=== PATIENT | male | born 1950 | race Caucasian/White ===

== ENCOUNTER 2025-03-02 20:11 | Emergency (ER) | payer BC, MEDICARE, SELFPAY ==
--- OUTSIDE RECORDS SUMMARY | 2006-09-29 06:33 | XMS_ITS | Continuity of Care Document ---
Author Organization [facility] Address [address] [address] [place] [address] Phone Care Team Providers Care Retail Wireless Associate Name Role Phone Shaun FONSECA, Jaylen Unavailable [...] Date Provider Providers Copied on Encounter Eye [facility], [address] [address], [place], [place], [id number], tel:[phone] [facility] Patient dislikes glasses (chief complaint) No Information Shaun York. [address] [facility] [address], [place], [id number], [place]. tel:[phone] Family History Family Member Type Diagnosis Age At Onset Problem (finding) Family history of HBP Payers Payer name Insurance type Covered constitution party ID Authoriza tion(s) No Information Social History [...]
--- NOTE | ~2025-03-02 | CT_ITS ---
CLINICAL HISTORY: high risk wells criteria CT angiography chest with contrast. 3D Postprocessing. Comparison: CR - XR CHEST 1V - 03/02/25 20:36 EDT Findings: Mild cardiomegaly. Normal RV/LV ratio. Coronary atherosclerosis. No pericardial effusion. Aortic atherosclerosis with ascending aortic aneurysm measuring 4.0 x 4.2 cm. No pulmonary embolus. Small hiatal hernia. Multiple small mediastinal lymph nodes, favored to be reactive. Visualized thyroid gland is within normal limits. Small bilateral pleural effusions. Pulmonary edema. Small right upper lobe consolidation. Diffuse peribronchial thickening. No pneumothorax. Cholelithiasis. No acute findings in the visualized upper abdomen. No acute fractures. IMPRESSION: 1. No pulmonary embolus. 2. Small right upper lobe consolidation 3. Pulmonary edema with small bilateral pleural effusions This document has been electronically signed by: Chris Hernandez MD on 03/03/2025 00:45:02
--- NOTE | ~2025-03-02 | XR_ITS ---
CLINICAL HISTORY: chest tightness, difficulty breating --- Additional Notes or Special Instructions: EKG + blood work (2020)-[place] 1 view chest x-ray Comparison: None provided Findings: Patchy bilateral airspace opacities concerning for pneumonia. No large effusion or pneumothorax. Heart size is normal. No acute fracture. IMPRESSION: Patchy bilateral airspace opacities concerning for pneumonia. This document has been electronically signed by: Chris Hernandez MD on 03/02/2025 21:22:43
--- NOTE | 2025-03-02 20:12 | ECG_ITS ---
Test Reason : tight chestness Blood Pressure : */* mmHG Vent. Rate : 86 BPM Atrial Rate : * BPM P-R Int : * ms QRS Dur : 154 ms QT Int : 428 ms P-R-T Axes : * 76 -9 degrees QTcB Int : 512 ms Atrial fibrillation with a competing junctional pacemaker Right bundle branch block Inferior infarct , age undetermined Abnormal ECG No previous ECGs available Referred By: Generic ED Physician Electronically Signed By: Jignesh Mcdaniel
--- NOTE | 2025-03-02 20:18 | ED_ITS ---
HPI - General Adult General Chief complaint: Chest Pain Stated complaint: tight chest/hard to breathe Time Seen by Provider: 03/02/25 22:43 Source: patient and family (son) Mode of arrival: EMS Limitations: no limitations History of Present Illness ED Provider: Dr. Shira Conroy HPI narrative: 74 year old male with history of CHF, paroxysmal atrial fibrillation not on anticoagulation, HTN, HLD presenting with his son via EMS with orthopnea, chest tightness, genearlized malaise and fatigue ongoing for about about 24 hours. Patient admits he has been having a hard time lying flat, feeling like he is going to choke and has to sit up in bed. Denies assocaited fever or cough. No sputum production. Denies lower extremity edema. Had been feeling well prior to this. Has been visiting from [place]. All of his care is in either [place] or [place]. 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 Has not been in afib for about a year. Was previously cardioverted multiple times for this. Admits his fatigue has really been going on all weekend. Can't tell when he is in afib. Related Data Previous Rx's ?Medication ?Instructions ?Recorded apixaban 5 mg (74 tabs) tablets in 5 mg PO BID #74 ea 03/03/25 a dose pack (Eliquis DVT-PE Treat 30D Start) furosemide 20 mg tablet (Lasix) 20 mg PO DAILY #7 tabs 03/03/25 Allergies Allergy/AdvReac Type Severity Reaction Status Date / Time erythromycin base AdvReac Unknown Verified 03/02/25 20:28 lisinopril AdvReac Unknown Verified 03/02/25 20:28 Penicillins AdvReac Unknown Verified 03/02/25 20:28 Review of Systems 2 Review of Systems: Yes all other systems are reviewed and are negative (as per HPI) [facility] Past Medical History Attestation statement: The following information was validated with the patient. [facility] Narrative: CHF, afib Source: old records reviewed and obtained from family Social History Social History Smoked in Last 30 Days: No Use of substances other than those prescribed or required for medical reasons: No Advance Directives: No Advance Directives Information Provided: No Physical Exam ED Vital Signs: Vital Signs - 24 hr 03/02/25 20:25 03/02/25 20:44 03/02/25 22:54 Temperature 97.9 F 97.9 F 98.2 F Pulse Rate 77 77 98 Respiratory Rate 16 16 22 H Blood Pressure 142/89 H 142/89 H 143/111 H Pulse Oximetry 97 97 92 Oxygen Delivery Method Room Air Room Air Room Air 03/03/25 00:04 03/03/25 02:04 Temperature 97.6 F Pulse Rate 78 77 Respiratory Rate 20 Blood Pressure 154/104 H 143/95 H Pulse Oximetry 93 Oxygen Delivery Method Room Air BMI result Body Mass Index 27.0 GENERAL: Chronically ill-appearing, mild respiratory distress. SKIN: Normal skin color for ethnicity, warm, dry, no rashes noted. HEENT:? Normocephalic, atraumatic, no stridor, EOMI. NECK: Soft, supple, full ROM, midline structures nontender, no step-offs, no deformities, no lymphadenopathy. CHEST: Irregularly irregular tachycardia, symmetric chest rise and fall, strong peripheral pulses. PULMONARY: Coarse lung sounds bilaterally, diminished at the bases, mild respiratory distress with poor air movement, no wheezes. ABDOMINAL: Soft, protuberant nontender, quiet bowel sounds in all quadrants. : Deferred. MUSCULOSKELETAL: Normal tone, full range of motion, no deformities, no peripheral edema bilaterally. NEURO: Alert and oriented to person, CN II through XII intact, no focal neurologic deficits.? PSYCHIATRIC: Anxious affect, appropriate demeanor. Course Course Course Narrative: This is a rapid medical exam performed by Jack Heck NP: Additional HPI, ROS, PE not included below will be deferred to primary provider. Patient is a 74-year-old male with history of afib, SC x 2 presenting to the ED with complaining of chest tightness/dyspnea since yesterday. Visiting from [place]. On metoprolol, not anticoagulated. Feeling fatigued. Sxs worse today. Plan: EKG, labs, CXR Medications Administered Discontinued Medications Generic Name Dose Route Start Last Admin Trade Name Freq PRN Reason Stop Dose Admin Acetaminophen 975 mg 03/03/25 02:27 03/03/25 03:07 Acetaminophen 325 Mg Tablet PO 03/03/25 02:28 975 mg ONCE ONE Administration Apixaban 5 mg 03/03/25 02:44 03/03/25 03:07 Apixaban 5 Mg Tablet PO 03/03/25 02:45 5 mg ONCE ONE Administration Furosemide 40 mg 03/03/25 02:41 03/03/25 03:06 Furosemide 40 Mg/4 Ml Vial IVPUSH 03/03/25 02:42 40 mg ONCE ONE Administration Protocol Iohexol 65 ml 03/02/25 23:57 03/02/25 23:57 Iohexol 350 Mg/Ml 100 Ml Infus..Btl IV 03/02/25 23:58 65 ml ONCE ONE Administration Nitroglycerin 0.4 mg 03/02/25 23:14 03/03/25 00:04 Nitroglycerin 0.4 Mg Tab.Subl SUBLINGUAL 0.4 mg Q5MX3 PRN Administration chest tightnes Medical Decision Making Medical Decision Making [facility] Narrative: Patient presents today with chief complaint of shortness of breath, fatigue. Differential diagnosis includes, but is not limited to, upper respiratory infection, pneumonia, COPD exacerbation, asthma exacerbation, CHF, pneumothorax, pleural effusion, pulmonary embolism, ACS.? Broad-based work-up will be initiated to evaluate for etiology of patient's symptoms. Patient's clinical picture is most consistent with afib and CHF exacerbation. Chest XR showed some patchy airspace disease read by radiologist, however, I feel he has no evidence of pneumonia clinically. He is afebrile, without sputum produciton WBC only 11 without leftward shift and is improving after diuresis. He is not on DOAC and I will start him back on Eliquis. He had taken it previously for the afib and since we do not know when his afib began, cardioversion would be unsafe at this point. Extensive discussion with patient and son regarding admission versus discharge. Son feels comfortable with d/c at this time. Differential Diagnosis Differential Diagnoses: The differential diagnosis associated with the presentation includes (as above) Admission/Observation Consideration of admission/observation: Escalation of care including admission/observation considered Lab Data [facility] Lab Attestation statement: I reviewed the patient's lab results. 03/02/25 20:22 03/02/25 20:22 Labs: Lab Results 03/02/25 03/02/25 03/03/25 Range/Units 20:22 22:25 02:01 WBC 11.3 H (4.8-10.8) X10*3/uL RBC 4.79 (4.60-5.80) X10*6/uL Hgb 14.4 (14.0-18.0) g/dl Hct 42.7 (42.0-52.0) % MCV 89.1 (80.0-98.0) fL MCH 30.1 (27.0-33.0) pg MCHC 33.7 (31.0-36.0) g/dl RDW 13.9 (11.0-16.0) % Plt Count 300 (160-400) X10*3/uL MPV 11.5 (9.4-12.4) fL Immature Gran % (Auto) 0.3 (0.0-0.4) % Neut % (Auto) 67.7 (45-73) % Lymph % (Auto) 22.9 (20-40) % [place] % (Auto) 7.9 (2-11) % Eos % (Auto) 0.6 (0-4) % Baso % (Auto) 0.6 (0-2) % Lymph # (Auto) 2.6 (1.2-4.9) X10*3/uL [place] # (Auto) 0.9 (0.1-1.2) X10*3/uL Eos # (Auto) 0.1 (0.0-0.4) X10*3/uL Baso # (Auto) 0.1 (0.0-0.2) X10*3/uL Abs Immat Gran (auto) 0.03 (0.00-0.03) X10*3/uL Absolute Neuts (auto) 7.7 (2.0-8.3) x10*3/uL Absolute Nucleated RBC 0.000 (0.0-0.012) X10*3/uL Nucleated RBC % (auto) 0.0 (0.0-0.2) /100WBC Sodium 140 (135-145) mmol/L Potassium 4.5 (3.3-5.1) mmol/L Chloride 101 (96-108) mmol/L Carbon Dioxide 29 (22-29) mmol/L Anion Gap 15 (12-20) BUN 18 H (9-16) mg/dL Creatinine 1.21 (0.5-1.4) mg/dL Estim Creat Clear Calc 59.6 Estimated GFR 58 POC Glucose 65 (60-115) mg/dL Random Glucose 85 (60-115) mg/dL Calcium 9.4 (8.4-10.2) mg/dL Total Bilirubin 1.0 (0.0-1.0) mg/dL AST 20 (5-37) U/L ALT 14 (0-40) U/L Alkaline Phosphatase 68 (39-117) U/L Troponin I High Sens 5.4 7.1 (<3.5-35.0) ng/L B-Natriuretic Peptide 1007 H (<100) pg/mL Total Protein 6.4 L (6.5-8.0) g/dL Albumin 4.1 (3.5-5.0) g/dL Influenza Type A (PCR) NEGATIVE (Negative) Influenza Type B (PCR) NEGATIVE (Negative) RSV RNA Qual (PCR) NEGATIVE (Negative) SARS-CoV-2 RNA (RT-PCR) NEGATIVE (Negative) Independent Interpretation I performed an independent interpretation of an: EKG and Plain X-Ray Radiology Impression Discussion of test interpretation with radiology: I have reviewed the radiologist's reading. Radiologist Impression: 1 view chest x-ray Comparison: None provided Findings: Patchy bilateral airspace opacities concerning for pneumonia. No large effusion or pneumothorax. Heart size is normal. No acute fracture. IMPRESSION: Patchy bilateral airspace opacities concerning for pneumonia. This document has been electronically signed by: Chris Hernandez MD on 03/02/2025 21:22:43 Independent Historian Clinical information obtained from an independent historian. History obtained from or confirmed by: Other (son) Chronic Conditions Patient?s care impacted by: Hypertension and Other (afib) Discharge Plan Discharge Clinical Impression: Acute exacerbation of CHF (congestive heart failure), Atrial fibrillation with controlled ventricular response, Acute dyspnea Patient Disposition: Home, Self-Care Instructions: Heart Failure (ED), A-fib (Atrial Fibrillation) (ED) Additional Instructions: Use Lasix daily for fluid retention and difficulty breathing while lying flat. Return to the emergency department immediately with any new or worsening symptoms including: Worsening chest pain, worsening difficulty breathing despite medications, fevers greater than 100?, green or brown sputum production, any new symptom that concerns you. Call 911 with any medical emergency. You will be restarted on Eliquis. You should take this medication every day until your follow-up visit with Cardiology at home. Prescriptions: New furosemide [Lasix] 20 mg tablet 20 mg PO DAILY Qty: 7 0RF Eliquis DVT-PE Treat 30D Start 5 mg (74 tabs) tablets,dose pack 5 mg PO BID Qty: 74 0RF Interventions: ED Discharge Assessment Last Done: 03/03/25 03:15 Discharge Date/Time: 03/03/25 03:18 Print Language: Palestinian
[2025-03-02 20:25] VITALS: BP 142/89; PULSE 77; RESP 16; TEMP 36.6; O2SAT 97; BMI 27.0
[2025-03-02 20:27] LABS: MANUAL DIFF FLAG NO
[2025-03-02 20:29] LABS: Hematocrit 42.7 % (42.0-52.0); Hemoglobin 14.4 g/dl (14.0-18.0); Imm Gran Abs Auto 0.03 X10*3/uL (0.00-0.03); Imm Gran Pct Auto 0.3 % (0.0-0.4); Lymphocytes Absolute Auto 2.6 X10*3/uL (1.2-4.9); Mean Corpuscular HGB Conc 33.7 g/dl (31.0-36.0); Mean Corpuscular Hemoglobin 30.1 pg (27.0-33.0); Mean Corpuscular Volume 89.1 fL (80.0-98.0); NRBC Abs Auto 0.000 X10*3/uL (0.0-0.012); NRBC Pct Auto 0.0 /100WBC (0.0-0.2); Platelet Count 300 X10*3/uL (160-400); Red Blood Count 4.79 X10*6/uL (4.60-5.80); White Blood Count 11.3 X10*3/uL (4.8-10.8)
[2025-03-02 20:42] LABS: Alanine Aminotransferase 14 U/L (0-40); Albumin Level 4.1 g/dL (3.5-5.0); Alkaline Phosphatase 68 U/L (39-117); Anion Gap 15 (12-20); Aspartate Amino Transferase 20 U/L (5-37); Blood Urea Nitrogen 18 mg/dL (9-16); Calcium 9.4 mg/dL (8.4-10.2); Carbon Dioxide 29 mmol/L (22-29); Chloride 101 mmol/L (96-108); Creatinine Clr Calc Pharmacy 59.6; Estimated Glomerular Filt Rate 58; Potassium 4.5 mmol/L (3.3-5.1); Sodium 140 mmol/L (135-145); Total Protein 6.4 g/dL (6.5-8.0)
[2025-03-02 20:44] VITALS: BP 142/89; PULSE 77; RESP 16; TEMP 36.6; O2SAT 97
--- NOTE | 2025-03-02 20:44 | PC.NURSE ---
pt here with chest tightness, states SOB has resolved. Pt denies blood thinners. respirations even and unlabored.
[2025-03-02 20:49] LABS: Troponin-I High Sensitivity 5.4 ng/L (<3.5-35.0)
[2025-03-02 21:05] LABS: Resp Syncy Virus RNA Qual PCR NEGATIVE (Negative); SARS COV2 PCR INHOUSE NEGATIVE (Negative)
--- OUTSIDE RECORDS SUMMARY | 2025-03-02 21:49 | XMS_ITS | Continuity of Care Document ---
Author Organization Formerly [facility]. If a dditional information is needed, contact Health Information Management at [phone] Address [phone] [place] [address] Phone Care Team Providers Care Dobby Looms Pegger Name Role Phone Unavailable Unavailable Unavailable Unavailable Unavailable Unavailable Unavailable Unavailable Unavailable Unavailable Unavailable Unavailable Unavailable Unavailable Unavailable Unavailable Unavailable Unavailable Unavailable Unavailable Unavailable Unavailable Unavailable Unavailable Unavailable Unavailable Unavailable Problems Abnormal EKG Onset:20-Dec-2019 Comments:Onset Date: [id number] Myocardial infarction Onset:07-Nov-2019 Fabián Dickinson MD Comments:Onset Date: [id number] History of coronary artery d isease Onset:06-Nov-2019 Comments:Onset Date: 20191106 NSTEMI (non-ST elevated myoc ardial infarction) Onset:06-Nov-2019 Comments:Onset Date: 20191106 Chest pain Onset:06-Nov-2019 Near syncope Onset:17-Aug-2018 [facility] Dizziness present Onset:17-Aug-2018 [facility] Comments:Onset Date: [id number] Leukocytosis Onset:17-Aug-2018 [facility] Type 2 diabetes mellitus wit hout complications Onset:07-Aug-2018 Comments:Onset Date: 20180730 Essential (primary) hyperten courtney Onset:07-Aug-2018 Comments:Onset Date: 20180730 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 Onset:31-Jul-2018 Comments:Onset Date: 20180730 Myocardial infarct Onset:31-Jul-2018 Comments:Onset Date: 20180730 CAD (coronary artery disease ), tang[place] coronary artery Onset:30-Jul-2018 Comments:Onset Date: 20180730 Acute inferolateral myocardi al infarction Onset:29-Jul-2018 Comments:Onset Date: 20180729 Acute ST segment elevation myocardial infarction Onset:29-Jul-2018 Comments:Onset Date: 20180730 Electrocardiogram abnormal Comments:Abnormal EKG Mitral valve regurgitation Comments:Moderate mitral regurgitation Coronary arteriosclerosis in [place] artery Comments:CAD in [place] arter y Acute ST segment elevation myocardial infarction Comments:ST elevation (STEMI ) myocardial infarction involving left circumflex coronary artery Essential hypertension Comments:Essential hypertension Mixed hyperlipidemia Comments:Mixed hyperlipidemi a Type 2 diabetes mellitus wit hout complication Comments:Type 2 diabetes mellitus without complication, unspecified whether intermediate frame tender insulin use Mental Status Cognitive function finding 06-Nov-2019 Cognitive function finding 29-Jul-2018 Allergies and Adverse Reactions Erythromycin Base(Allergy) Onset: 17-Aug-2018 Reaction:UNKNOWN penicillin G(Allergy) Onset: 17-Aug-2018 Reaction:UNKNOWN Erythromycin(Allergy) Penicillin V Potassium 500 M G Oral Tablet(Allergy) Medications Norvasc (as amLODIPine besyl ate) 10 MG Oral Tablet;10 MG Orally Once a day, 1 tablet Quantity:90 Refills:1 MARLEY JONES Start:26-Nov-2020 Status:Inactive Comments:10 MG Orally Once a day, 1 tablet regadenoson;Provider Administration Instructions:INFUSE RAPIDLY OVER 10 SECONDS Quantity:1 Barbara Bartlett MD Start:17-Dec-2019 Status:Discontinued Comments:Provider Administration Instructions:INFUSE RAPIDLY OVER 10 SECONDS Nitrostat;0.4 MG Sublingual Every 5 minutes x 3 if needed for chest pain, as directed Quantity:25 Refills:2 MARLEY JONES Start:06-Nov-2019 Comments:0.4 MG Sublingual Every 5 minutes x 3 if needed for chest pain, as directed Metoprolol Tartrate 25 MG Or al Tablet;25 MG Orally Twice a day, 1/2 tablet with food Quantity:180 Refills:3 MARLEY JONES Start:10-Sep-2018 Status:Inactive Comments:25 MG Orally Twice a day, 1/2 tablet with food 24 HR venlafaxine 75 MG Exte nded Release Oral Capsule [Effexor];75 MILLIGRAM PO DAILY Start:17-Aug-2018 Comments:75 MG PO DAILY metoprolol tartrate 25 MG Or al Tablet;25 MILLIGRAM PO BID Start:17-Aug-2018 Comments:25 MG PO BID atorvastatin 40 MG Oral Tablet;40 MILLIGRAM PO BEDTIME Start:17-Aug-2018 Comments:40 MG PO BEDTIME aspirin 81 MG Chewable Table t [Billy Aspirin];81 MILLIGRAM PO DAILY Start:31-Jul-2018 Comments:81 MG PO DAILY ticagrelor 90 MG Oral Tablet ;90 MILLIGRAM PO BID Start:31-Jul-2018 Comments:90 MG PO BID atorvastatin 40 MG Oral Tablet;40 MILLIGRAM PO DAILY 1700 Start:31-Jul-2018 Status:Discontinued Comments:40 MG PO DAILY 1700 fenofibrate 160 MG Oral Tablet;160 MILLIGRAM PO DAILY Start:29-Jul-2018 Comments:160 MG PO DAILY amLODIPine 5 MG Oral Tablet; 5 MILLIGRAM PO DAILY Start:29-Jul-2018 Status:Discontinued Comments:5 MG PO DAILY aspirin 325 MG Delayed Relea se Oral Tablet;325 MILLIGRAM PO DAILY Start:29-Jul-2018 Status:Discontinued Comments:325 MG PO DAILY SITagliptin 100 MG Oral Tablet;100 MILLIGRAM PO DAILY Start:29-Jul-2018 Comments:100 MG PO DAILY buPROPion hydrochloride 100 MG Oral Tablet [Wellbutrin];100 MILLIGRAM PO BID Start:29-Jul-2018 Comments:100 MG PO BID hydroCHLOROthiazide 12.5 MG / valsartan 320 MG Oral Tablet;1 TABLET PO DAILY Start:29-Jul-2018 Comments:1 TAB PO DAILY 24 HR venlafaxine 75 MG Exte nded Release Oral Capsule [Effexor];75 MG ORAL DAILY Quantity:1 Keturah Rowan DO Status:Discontinued Comments:[id number] Administration Instructions:...... ADMIN WITH FOODOrdered by FARIDA MCNEIL on 11/06/19 at 2100Venlafaxine XR Cap (Effexor XR Cap) 75 MG PO DAILY(ordered on 11/06/19 at 2100) fenofibrate 160 MG Oral Tablet;160 MG ORAL DAILY Quantity:1 Keturah Rowan DO Status:Discontinued Comments:[id number] valsartan 320 MG Oral Tablet [Diovan];320 MG ORAL DAILY Quantity:1 Keturah Orozco P DO Status:Discontinued Comments:[id number] Administration Instructions:GIVE WITH HCTZ 12.5MG= DIOVAN HCT 320/12.5MG..... DO NOT ADMIN WITH FOOD aspirin 81 MG Delayed Releas e Oral Tablet [Billy Aspirin];81 MG ORAL DAILY Quantity:1 Frances Mathur MD Status:Discontinued Comments:[id number] Administration Instructions:Aspirin EC Tab (Halfprin EC Tab) 81 MG PO Now and thenDAILY (ordered on 11/07/19 at 1030) SITagliptin 100 MG Oral Tabl et [Januvia];100 MG ORAL DAILY Quantity:1 Keturah Orozco P DO Status:Discontinued Comments:[id number] Administration Instructions:Ordered by FARIDA MCNEIL on 11/06/19 at 2100sitaGLIPtin Tab (NF) (Januvia Tab) 100 MG PO DAILY(ordered on 11/06/19 at 2100) metoprolol tartrate 25 MG Or al Tablet;25 MG ORAL BID Quantity:1 Keturah Orozco P DO Status:Discontinued Comments:[id number] Administration Instructions:BETA BLOCKEROrdered by FARIDA MCNEIL on 11/06/19 at 2100Metoprolol Tartrate Tab (Lopressor Tab) 25 MG PO BID(ordered on 11/06/19 at 2100) buPROPion hydrochloride 100 MG Oral Tablet;100 MG ORAL BID Quantity:1 Keturah Orozco P DO Status:Discontinued Comments:[id number] Administration Instructions:Ordered by FARIDA MCNEIL on 11/06/19 at 2100buPROPion Tab (Wellbutrin Tab) 100 MG PO BID (ordered on11/06/19 at 2100) acetaminophen 325 MG Oral Ta blet [Tylenol];650 MG ORAL Q6H PRN Quantity:2 Fabián Dickinson MD Status:Discontinued Comments:[id number] Administration Instructions:ED Bridge orders stop after 8 hrs... Obtain new orders.Maximum daily dose of Acetaminophen should not exceed 4grams.ED Bridge Admission Order Set atorvastatin 80 MG Oral Tabl et [Lipitor];80 MG ORAL BEDTIME Quantity:1 Keturah Orozco P DO Status:Discontinued Comments:[id number] Administration Instructions:Ordered by FARIDA MCNEIL on 11/06/19 at 1935Start todayAtorvastatin Tab (Lipitor Tab) 80 MG PO and then daily(ordered on 11/06/19 at 1935) acetaminophen 325 MG Oral Ta blet [Tylenol];650 MG ORAL Q4H PRN Quantity:2 Keturah Orozco P DO Status:Discontinued Comments:[id number] Administration Instructions:Maximum daily dose of Acetaminophen should not exceed 4grams.Ordered by FARIDA MCNEIL on 11/06/19 at 1935Start todayAcetaminophen Tab (Tylenol Tab) 650 MG PO Q4H PRN mildpain score 1-3 (For mild pain (score 1 - 3) 2/dose forpain, mild pain --...) (ordered on 11/06/19 at 1935)Rx [id number] DC'd while checking ints/dups/alls on this Rx. glucose 0.4 MG/MG Oral Gel;1 5 GM ORAL .[HYPOGLYCEMIA] PRN Quantity:1 Frances Mathur MD Status:Discontinued Comments:Provider Administration Instructions:Dextrose 40% 15gm Gel (Glutose 15gm Gel) 15 GM PO.[hypoglycemia] PRN hypoglycemia as per guidelines (Giveif dex-4 is not available... See notes below: For pa...)(ordered on 11/07/19 at 0659) heparin sodium, porcine 5000 UNT/ML Injectable Solution;33579 UNITS INTRAVENOUS ASDIR Quantity:4 Keturah Rowan DO Status:Discontinued Comments:[id number] Administration Instructions:THE NURSING UNIT SHOULD DECREASE BOLUS BY 1/2 WHILE PATIENTIS ON EPTIFIBATIDE (INTEGRILIN)Ordered by FARIDA MCNEIL on 11/06/19 at 1935Heparin Inj (Heparin Inj) 82876 UNITS IV STAT and thenasdir (12 unit/kilogram per hour continuous intravenousinfusion...), Dextrose 5%/Water (D5W) (ordered on 11/06/19at 1935) heparin sodium, porcine 5000 UNT/ML Injectable Solution;[id number] Administration Instructions:UNFRACTIONATED HEPARIN LEVEL< THAN 0.11= 6500 UNITS0.11 - 0.24= 3000 UNITSIf patient currently on or within last 24 hrs has receivedthrombolytic (Activase or Alteplate) or MtKTt5k inhibitor(Integrilin), Do not exceed maximum bolus dose of4,000 units (0.8 ml).* HEPARIN BOLUS CHART* -- INITIAL BOLUS DOSE ---Acute Coronary Syndromes (Acute [place] onthrombolytics, Unstable Angina, High Risk Bleeding)Bolus Dose = 60 units per kg - Do not bolus out of IV bag. Quantity:0 Keturah Rowan DO Status:Discontinued Comments:[id number] Administration Instructions:UNFRACTIONATED HEPARIN LEVEL< THAN 0.11= 6500 UNITS0.11 - 0.24= 3000 UNITSIf patient currently on or within last 24 hrs has receivedthrombolytic (Activase or Alteplate) or QxQUh5f inhibitor(Integrilin), Do not exceed maximum bolus dose of4,000 units (0.8 ml).* HEPARIN BOLUS CHART* -- INITIAL BOLUS DOSE ---Acute Coronary Syndromes (Acute IL onthrombolytics, Unstable Angina, High Risk Bleeding)Bolus Dose = 60 units per kg - Do not bolus out of IV bag. sodium chloride 9 MG/ML Injectable Solution;Provider Administration Instructions:NOTE: CONCENTRATION = 40 UNITS/ML ---- HEPARIN INITIAL RATE CHART - (VERIFY RATE ON ORDER)Acute Coronary Syndromes (Acute [place] on thrombolytics,Unstable Angina)Infusion Rate = 12 units/kg/hrConcentration = 20,000 units / 500 ml = 40 units per mlWeight (kgs) --- Rate (ml/hr)50-51 15 ml/hr52-54 16 ml/hr55-58 17 ml/hr59-61 18 ml/hr62-64 19 ml/hr65-68 20 ml/hr69-71 21 ml/hr72-74 22 ml/hr Keturah Rowan DO Status:Discontinued Comments:Provider Administration Instructions:NOTE: CONCENTRATION = 40 UNITS/ML ---- HEPARIN INITIAL RATE CHART - (VERIFY RATE ON ORDER)Acute Coronary Syndromes (Acute IL on thrombolytics,Unstable Angina)Infusion Rate = 12 units/kg/hrConcentration = 20,000 units / 500 ml = 40 units per mlWeight (kgs) --- Rate (ml/hr)50-51 15 ml/hr52-54 16 ml/hr55-58 17 ml/hr59-61 18 ml/hr62-64 19 ml/hr65-68 20 ml/hr69-71 21 ml/hr72-74 22 ml/hr sodium chloride 9 MG/ML Injectable Solution;[id number] Administration Instructions:Sodium Chloride 0.9% Inj (NS Inj) 1000 ML 75 MLS/HR IVASDIR (x 1 liter) (ordered on 11/07/19 at 0700) Frances Mathur MD Status:Discontinued Comments:[id number] Administration Instructions:Sodium Chloride 0.9% Inj (NS Inj) 1000 ML 75 MLS/HR IVASDIR (x 1 liter) (ordered on 11/07/19 at 0700) 1 ML morphine sulfate 2 MG/M L Cartridge;2 MG INTRAVENOUS .Special Inst PRN Quantity:1 Keturah Rowan DO Status:Discontinued Comments:Provider Administration Instructions:FOR CHEST PAIN NOT CONTROLLED BY NTG DRIPOrdered by FARIDA MCNEIL on 11/06/19 at 1935Start todaymorphine Inj (morphine Inj) 2 MG IV PRN chest pain (Forchest pain -- may use if intolerant to DILAUDID. If m...)(ordered on 11/06/19 at 1935) ondansetron 2 MG/ML Injectab le Solution [Zofran];4 MG INTRAVENOUS Q8H PRN Quantity:1 Fabián Dickinson MD Status:Discontinued Comments:[id number] Administration Instructions:ED Bridge orders stop after 8 hrs... Obtain new orders.Give IV if unable to tolerate po tab if both routes ordered.Use for ZofranED Bridge Admission Order Set 250 ML nitroglycerin 0.1 MG/ ML Injection;[id number] Administration Instructions:NOTE CONCENTRATION: 100MCG/MLstart nitro gtt if chest pain unresloved with nitro paste Danis Dickinson MD Status:Discontinued Comments:[id number] Administration Instructions:NOTE CONCENTRATION: 100MCG/MLstart nitro gtt if chest pain unresloved with nitro paste ondansetron 2 MG/ML Injectab le Solution [Zofran];4 MG INTRAVENOUS Q6H PRN Quantity:1 Keturah Rowan DO Status:Discontinued Comments:[id number] Administration Instructions:Ordered by FARIDA MCNEIL on 11/06/19 at 1935Start todayOndansetron Inj (Zofran Inj) 4 MG IV Q6H PRN nausea(Nausea--if PO intolerant Use most appropriate route...) (ordered on 11/06/19 at 1935) glucose 254 MG/ML Oral Solution;15 GM ORAL .[HYPOGLYCEMIA] PRN Quantity:1 Frances Mathur MD Status:Discontinued Comments:Provider Administration Instructions:Glucose Oral Liquid (Dex4 Glucose Oral Liquid) 15 GM PO.[hypoglycemia] PRN hypoglycemia guidelines (For patientsable to swallow and who can take food by leela...) (orderedon 11/07/19 at 0659) 250 ML glucose 100 MG/ML Injection;100 ML INTRAVENOUS .[HYPOGLYCEMIA] Quantity:1 Frances Mathur MD Status:Discontinued Comments:Provider Administration Instructions:P T Approved Formulary substitution for Dextrose 50% 50mlinjection while on backorder.Dextrose 10%/Water (D10W) 100 ML IV .[hypoglycemia] (-Infuse dose intravenously over 5-7 minutes or as direct...)(ordered on 11/07/19 at 0659) 3 ML insulin lispro 100 UNT/ ML Pen Injector [HumaLOG];Provider Administration Instructions:0 UNITSSEE SPECIAL INSTRUCTIONS/ADMIN CRITERIA FOR SLIDING [id number] UNITS/ML - EXP 28 DAYS OUT OF FRIGTHERAPEUTIC SUBSTITUTION FOR NOVOLOG.........ADMIN WITH MEAL PATIENT SPECIFIC VIAL; STORE INPATIENT CASSETTE IN MED ROOM. DO NOT GIVE TO PATIENT ATDISCHARGE. DISCARD IN BLACK BIN.Insulin Lispro Inj (HumaLOG Inj) 0 UNITS subQ .[slidingscale] PRN sliding scale insulin (LOW DOSE SLIDING SCALE Quantity:0 Frances Mathur MD Status:Discontinued Comments:Provider Administration Instructions:0 UNITSSEE SPECIAL INSTRUCTIONS/ADMIN CRITERIA FOR SLIDING [id number] UNITS/ML - EXP 28 DAYS OUT OF FRIGTHERAPEUTIC SUBSTITUTION FOR NOVOLOG.........ADMIN WITH MEAL PATIENT SPECIFIC VIAL; STORE INPATIENT CASSETTE IN MED ROOM. DO NOT GIVE TO PATIENT ATDISCHARGE. DISCARD IN BLACK BIN.Insulin Lispro Inj (HumaLOG Inj) 0 UNITS subQ .[slidingscale] PRN sliding scale insulin (LOW DOSE SLIDING SCALE REFRIGERATED PATIENT MEDS 1 EACH EACH;1 EACH MISC ASDIR Quantity:1 Fabián Dickinson MD Status:Discontinued Comments:[id number] Administration Instructions:THIS IS DUMMY MED THAT ALLOWS ACCESS TO PATIENT REFRIG MEDSDO NOT DELETE THIS DRUG FROM PATIENT PROFILE.. glucagon (rDNA) 1 MG Injecti on;1 MG INTRAMUSCULAR .[HYPOGLYCEMIA] PRN Quantity:1 Frances Mathur MD Status:Discontinued Comments:Provider Administration Instructions:use for GLUCAGONGlucagon Inj (GlucaGen Inj) 1 MG IM .[hypoglycemia] PRNper hypoglycemia guidelines (Use for glucagon For patientswho are non-responsive and ...) (ordered on 11/07/19 [id number]) Pravastatin Sodium 20 MG Ora l Tablet;20 MG Orally Once a day, 1 tablet MARLEY JONES Status:Inactive Comments:20 MG Orally Once a day, 1 tablet Benzonatate;100 MG Orally Th ree times a day, 1 capsule as needed MARLEY JONES Comments:100 MG Orally Three times a day, 1 capsule as needed Cholecalciferol 5000 UNT Ora l Capsule;5000 UNIT Orally Once a day, 1 capsule Quantity:30 MARLEY JONES Comments:5000 UNIT Orally On ce a day, 1 capsule Multi Complete;- Orally , as directed MARLEY JONES Comments:- Orally , as direc briana Aspirin 81 MG Delayed Releas e Oral Tablet;81 MG Orally Once a day, 1 tablet Quantity:30 MARLEY JONES Comments:81 MG Orally Once a day, 1 tablet pantoprazole 40 MG Delayed Release Oral Tablet;40 MG Orally Once a day, 1 tablet Quantity:30 MARLEY JONES Comments:40 MG Orally Once a day, 1 tablet 24 HR mirabegron 50 MG Exten ded Release Oral Tablet [Myrbetriq];50 MG Orally Once a day, 1 tablet Quantity:30 MARLEY JONES Comments:50 MG Orally Once a day, 1 tablet 24 HR metoprolol succinate 2 5 MG Extended Release Oral Tablet;25 MG Orally Once a day, 1 tablet MARLEY JONES Comments:25 MG Orally Once a day, 1 tablet 24 HR metoprolol succinate 2 5 MG Extended Release Oral Tablet [Toprol];25 MG Orally Once a day, 1 tablet Quantity:30 MARLEY JONES Status:Inactive Comments:25 MG Orally Once a day, 1 tablet Venlafaxine HCl ER;75 MG Ora lly tid, 1 tablet with food MARLEY JONES Comments:75 MG Orally tid, 1 tablet with food fenofibric acid 135 MG Delay ed Release Oral Capsule;135 MG Orally Once a day, 1 capsule Quantity:30 MARLEY JONES Comments:135 MG Orally Once a day, 1 capsule Omeprazole;40 MG Orally Once a day, 1 capsule Quantity:30 MARLEY JONES Status:Inactive Comments:40 MG Orally Once a day, 1 capsule 12 HR buPROPion Hydrochlorid e 100 MG Extended Release Oral Tablet [Wellbutrin];100 MG Orally Once a day, 1 tablet in the morning Quantity:30 MARLEY JONES Status:Inactive Comments:100 MG Orally Once a day, 1 tablet in the morning Doxazosin 4 MG Oral Tablet;4 MG Orally Once a day, 1 tablet Quantity:30 MARLEY JONES Comments:4 MG Orally Once a day, 1 tablet Alogliptin Benzoate;25 MG Or ally Once a day, 1 tablet Quantity:30 MARLEY JONES Comments:25 MG Orally Once a day, 1 tablet buPROPion Hydrochloride 100 MG Oral Tablet;100 MG Orally Once a day, 1 tablet MARLEY JONES Comments:100 MG Orally Once a day, 1 tablet metFORMIN hydrochloride 500 MG Oral Tablet;500 MG Orally Once a day, 1 tablet with a meal Quantity:30 MARLEY JONES Comments:500 MG Orally Once a day, 1 tablet with a meal cetirizine hydrochloride 10 MG Oral Tablet;10 MG Orally Once a day, 1 tablet Quantity:30 MARLEY JONES Comments:10 MG Orally Once a day, 1 tablet Losartan Potassium 100 MG Or al Tablet;100 MG Orally Once a day, 1 tablet MARLEY JONES Comments:100 MG Orally Once a day, 1 tablet Atorvastatin Calcium;40 MG Orally Once a day, 1 tablet MALREY JONES Comments:40 MG Orally Once a day, 1 tablet Plavix;75 MG Orally Once a d ay, 1 tablet Quantity:90 Refills:3 MARLEY JONES Comments:75 MG Orally Once a day, 1 tablet Brilinta;90 MG Orally Twice a day, 1 tablet MARLEY JONES Status:Inactive Comments:90 MG Orally Twice a day, 1 tablet Januvia 100 MG (as sitaGLIPt in phosphate monohydrate 128.5 MG) Oral Tablet;100 MG Orally Once a day, 1 tablet Quantity:30 MARLEY JONES Status:Inactive Comments:100 MG Orally Once a day, 1 tablet Spironolactone 25 MG Oral Tablet;25 MG Orally , 1 tablet Quantity:15 MARLEY JONES Status:Inactive Comments:25 MG Orally , 1 tablet Hydrochlorothiazide 12.5 MG / valsartan 320 MG Oral Tablet;320-12.5 MG Orally Once a day, 1 tablet Quantity:30 MARLEY JONES Status:Inactive Comments:320-12.5 MG Orally Once a day, 1 tablet atorvastatin 40 MG Oral Tabl et [Lipitor];40 MG Orally Once a day, 1 tablet Quantity:90 Refills:3 MARLEY JONES Status:Inactive Comments:40 MG Orally Once a day, 1 tablet 120 ACTUAT Fluticasone propionate 0.05 MG/ACTUAT Nasal Inhaler;93 MCG/ACT Nasally Twice a day, 1 spray in each nostril MARLEY JONES Comments:93 MCG/ACT Nasally Twice a day, 1 spray in each nostril Fenofibrate 160 MG Oral Tablet;160 MG Orally Once a day, 1 tablet with food Quantity:30 MARLEY JONES Status:Inactive Comments:160 MG Orally Once a day, 1 tablet with food Ozempic;2 MG/1.5ML Subcutane ous , as directed MARLEY JONES Comments:2 MG/1.5ML Subcutaneous , as directed Alpha Lipoic Acid;, MARLEY JONES Comments:, Social History Smoking Status Never smoked tobacco Recorded: 06-Nov-2019 Never smoked tobacco Recorded: 17-Aug-2018 Never smoked tobacco Recorded: 29-Jul-2018 Encounters pre-admission 27-Dec-2019 09:30 [facility]
--- OUTSIDE RECORDS SUMMARY | 2025-03-02 21:50 | XMS_ITS | Data Portability ---
Author Organization [place] [facility] [place] Address [address] [facility] [address] [place] [address] Care Team Providers Care Tight Rope Walker Name Role Phone [facility] Primary Care Provider ROB NGUYEN Dining Car Hop Assessment Encounter Date Assessment Date Assessment LastModified by Organization Details LastModified Time 06/15/2023 06/15/2023 Patient's echocardiogram notes normal LVEF moderate MR normal RVSP this appears stable and consistent with his echo 1 year ago. Given his known coronary disease along with his progressive dyspnea on exertion and fatigue we will plan on a exercise thall next available date. Lab slip given for thyroid panel be drawn next available date. Further recommendations based upon above. Not available 06/15/2023 14:01:41 12/21/2023 12/21/2023 Overall patient appears nocardial from progressive standpoint. EKG notes underlying sinus rhythm. Will continue with his current medications and see him back in 6 months with a resting cardiogram. Will plan on stress testing again in 1 year. Will request a copy of his FLP drawn yesterday. Not available 12/21/2023 16:24:42 06/27/2024 06/27/2024 We have provided the patient with written prescriptions for metoprolol to tartrate 50 mg p.o. twice daily, hydralazine 10 mg 3 times daily as needed as noted above, and losartan 50 mg p.o. twice daily. He will monitor his blood pressures and notify us if he fails to trend back into range. We will see him in 3 to 4 months to follow-up on blood pressure. He will contact our office in the interim for any issues he may develop. Not available 06/27/2024 14:27:39 01/23/2025 01/23/2025 The patient is going to speak with his neurologist about the visions he has been having. He does state he knows that those visions are not real, they are not giving him any messages or instructions, and he states he has had only one disturbing ghost vision. He is going to continue his current cardiac regimen and we will plan on seeing him back in spring 2025 with an echocardiogram and twelve-lead EKG. He will contact our office in the interim for any issues he may develop. Not available 01/23/2025 14:04:22 Plan of Treatment Reminders Order Date Submit Date Provider Last Modified By Organization Details Last Modified Time Details Appointments ECHO 2025 10:[facility] Not available Not available Not available CARDI KOFI GORE D 2025 11:45A M Bryant Mendez MD Not available Not available Not available Lab None recor ded. Referral None recor ded. Procedures None recor ded. Surgeries None recor ded. Imaging arpita milligan am 2023 024 [email or web address] [place], [address] [place] [address] [address], [place], [address], 06/27/2024 14:58:34 arpita milligan am 2023 024 [email or web address] [place], [address], [place], [address], 12/21/2023 16:25:54 Medication Orders None recor ded. Patient TargetsNo targets recorded. Patient InstructionsNo instructions recorded. Reason for Referral None Reported. Results Created Date Observation Date Name Description Value Unit Range Abnormal Flag Note LastModifiedBy Organization Detail LastModifiedTime 05/18/20 23 03/19/2023 , [facility] ardio gram No observ ation record ed. [email or web address] Not Available 2022 08:59:52 06/16/20 23 06/15/2023 elect rocar diogr am No observ ation record ed. [email or web address] Not Available 2022 10:18:17 06/28/20 23 06/28/2023 NM, myoca rdial perfu cuortney scan, w/ stres s No observ ation record ed. [facility] [address], [place], [address], 07/05/2023 15:22:13 12/21/19 elect rocar diogr am No observ ation record ed. [email or web address] [facility]y [address], [place], [address], 12/21/2023 16:19:10 12/21/19 24 elect rocar diogr am No observ ation record ed. [email or web address] Not Available 2023 16:16:01 06/27/20 24 07/03/2024 elect rocar diogr am No observ ation record ed. [email or web address] [place] [address], [place], [address], 07/03/2024 10:31:06 06/27/20 24 elect rocar diogr am No observ ation record ed. [email or web address] Not Available 2023 10:03:48 06/27/20 24 06/27/2024 US, echoc ardio gram, trans thora cic, compl ete, w/ color flow No observ ation record ed. [email or web address] Not Available 2023 10:59:16 01/24/20 25 01/23/2025 elect rocar diogr am No observ ation record ed. [email or web address] [place] [address], [place], [address], 01/23/2025 20:58:27 01/24/20 25 elect edgar diogr am No observ ation record ed. [email or web address] Not Available 2024 13:38:49 Result Notes Documentation Provider Name and Address Organization Details Recorded Time Nm, Myocardial Perfusion Scan, W/ Stress : Stress LV EF: 61%. Medium size, mostly fixed inferior wall perfusion defect EMMANUEL MOTT [facility] 07/05/2023 15:22:13 Problems Name Problem SNOMED Code Status Onset Date Resolution Date Notes Provider Name and Address Organization Details Recorded Time Dyspnea on dressing and undressing 119969002 Active 2022 BENITO ANDERSON [facility] 3 10:59:09 Stented coronary artery 154941813 [facility] 10:59:16 Atheroscle rosis of coronary artery without angina pectoris 491525885186 103 Active 2022 [facility] 10:59:22 History of benign neoplasm of brain 295785686 Active 2024 Surjit Miner, [address], [place], [address], [facility] 5 14:03:26 Mitral valve regurgitat ion 43204382 Active 2021 AIXA FELIPE [facility] 2 10:52:39 Placement of stent in cardiac conduit Active 2021 X 3 AIXA FELIPE [facility] 2 10:52:50 Type 2 diabetes mellitus 53165214 Active 2021 AIXA FELIPE [facility] 2 10:52:59 Cardiovers ion [facility] 10:53:31 Chronic lung disease 037188280 [facility] 2021 [facility] 2 10:56:39 Paroxysmal atrial fibrillati on 675709513 Active 2021 Surjit Miner, [facility] [address], [place], [address], [facility] 2 10:54:46 Obstructiv e sleep apnea syndrome 61192060 Active 2021 Surjit Miner, [facility] [address], [place], [address], [facility] 2 10:55:19 Essential hypertensi on 99073758 Active 2021 Surjit Miner, [facility] [address], [place], [address], [facility] 2 10:55:24 Hyperlipid emia 50820898 Active 2022 NEAL CLIFTON [facility] 3 14:45:54 Problem Notes None recorded. Procedures Surgical History Date Name Laterality Status Provider Name and Address Organization Details Recorded Time 024 Tte w/doppler complete completed Not Available [facility] 06/27/2024 14:17:25 023 Cardiac Catheterization completed [facility] 08/15/2023 17:28:21 023 Ht muscle image spect mult completed Not Available [facility] [facility] 06/28/2023 16:42:22 023 Cardiovascular stress test completed Not Available [facility] 06/28/2023 16:42:22 022 Cardioversion completed [facility] 08/04/2023 16:09:13 021 Coronary Artery Stent completed [facility] 08/04/2023 16:05:38 Imaging Results None recorded. Procedure Notes None recorded. Medical Equipment None Reported. Allergies Allergen ID Allergen Name Allergen Category Reaction Reaction Severity Criticality Documentation Date Start Date Code Code System Note Provider Name and Address Organization Details Recorded Time Product containin g penicilli n (product) medicatio n Not available Not available Not available 04/06/2022 27225 8001 SNOMED AIXA sylvester, [facility] 2 10:45:30 97435 lisinopri l medicatio n Not available Not available Not available 04/06/2022 47412 RxNorm AIXA sylvester, [facility] 2 10:45:41 66271 Erythroci n medicatio n Not available Not available Not available 04/06/2022 28678 3 RxNorm AIXA sylvester, [facility] 2 10:45:48 Medications Name Sig Start Date Stop Date Status Note LastModified by Organization Details LastModified Time losartan 50 mg tablet Take 1 tablet every day by oral route. active Not Available Not Available No t Available furosemide 40 mg tablet 09/07 completed Not Available Not Available Not Available atorvastati n 40 mg tablet 07/18 completed Not Available Not Available Not Available hydralazine 10 mg tablet Take by oral route for 30 days. active Not Available Not Available No t Available bupropion HCl SR 150 mg tablet,12 hr sustained-r elease Take 1 tablet every day by oral route. active Not Available Not Available No t Available atorvastati n 80 mg tablet 04/06 completed Not Available Not Available Not Available clonidine HCl 0.1 mg tablet Take 1 tablet as needed by oral route. active Not Available Not Available No t Available venlafaxine ER 75 mg capsule,ext ended release 24 hr Take 1 capsule every day by oral route. active Not Available Not Available No t Available atorvastati n 20 mg tablet Take 1 tablet every day by oral route as directed for 90 days. active Not Available Not Available No t Available Klor-Con 10 mEq tablet,exte nded release Take 1 tablet every day by oral route for 30 days. active Not Available Not Available No t Available clindamycin HCl 300 mg capsule 06/16 completed Not Available Not Available Not Available azithromyci n 250 mg tablet 01/23 completed Not Available Not Available Not Available amiodarone 200 mg tablet Take 1 tablet every day by oral route as directed for 90 days, for Atrial Fibrillat ion. 2023 active Not Available Not Available Not Avai lable metoprolol succinate ER 50 mg tablet,exte nded release 24 hr Take 1 tablet every day by oral route as directed for 90 days, for blood pressure. 01/23 completed Not Available Not Available Not Available hydrocodone 5 mg-acetamin ophen 325 mg tablet active Not Available Not Available No t Available ondansetron HCl 4 mg tablet 09/07 completed Not Available Not Available Not Available prednisone 20 mg tablet 04/06 completed Not Available Not Available Not Available doxycycline hyclate 50 mg capsule 09/07 completed Not Available Not Available Not Available metoprolol succinate ER 100 mg tablet,exte nded release 24 hr 01/23 completed Not Available Not Available Not Available gabapentin 400 mg capsule Take 1 capsule every day by oral route. active Not Available Not Available No t Available clindamycin HCl 150 mg capsule 07/18 completed Not Available Not Available Not Available Zyrtec 10 mg tablet Take 1 tablet every day by oral route. active Not Available Not Available No t Available clopidogrel 75 mg tablet 10/18 completed Not Available Not Available Not Available sulfamethox azole 800 mg-trimetho prim 160 mg tablet 04/06 completed Not Available Not Available Not Available aspirin 81 mg tablet,jo yed release 10/18 completed Not Available Not Available Not Available spironolact one 25 mg tablet Take 1 tablet every day by oral route as needed for 90 days, for swelling. 01/23 completed Not Available Not Available Not Available bupropion HCl SR 100 mg tablet,12 hr sustained-r elease 12/20 completed Not Available Not Available Not Available oxycodone-a cetaminophe n 5 mg-325 mg tablet 12/20 completed Not Available Not Available Not Available doxazosin 8 mg tablet 01/23 completed Not Available Not Available Not Available potassium chloride ER 8 mEq tablet,exte nded release 07/19 completed Not Available Not Available Not Available tamsulosin 0.4 mg capsule Take 1 capsule every day by oral route. active Not Available Not Available No t Available amlodipine 10 mg tablet 07/19 completed Not Available Not Available Not Available hydrocodone 7.5 mg-acetamin ophen 325 mg tablet 12/20 completed Not Available Not Available Not Available pantoprazol e 40 mg tablet,jo yed release Take 1 tablet every day by oral route for 30 days. active Not Available Not Available No t Available lidocaine 5 % topical patch 01/23 completed Not Available Not Available Not Available losartan 25 mg tablet Take 1 tablet every day by oral route. 01/23 completed Not Available Not Available Not Available ibuprofen 400 mg tablet Take 1 tablet as needed by oral route. active Not Available Not Available No t Available metoprolol tartrate 50 mg tablet Take 1 tablet twice a day by oral route. 2024 active Not Available Not Available Not Avai lable nitroglycer in 0.[address] 1 mg as needed by sublingua l route as directed. active Not Available Not Available No t Available gabapentin 300 mg capsule 09/07 completed Not Available Not Available Not Available doxazosin 4 mg tablet 04/06 completed Not Available Not Available Not Available mupirocin 2 % topical ointment 01/23 completed Not Available Not Available Not Available furosemide 20 mg tablet 04/06 completed Not Available Not Available Not Available dexamethaso ne sodium phosphate 4 mg/mL injection solution active Not Available Not Available Not Available levofloxaci n 750 mg tablet 04/06 completed Not Available Not Available Not Available albuterol sulfate HFA 90 mcg/actuati on aerosol inhaler 01/23 completed Not Available Not Available Not Available ondansetron 4 mg disintegrat ing tablet Place 1 tablet every day by oral route. active Not Available Not Available No t Available losartan 100 mg tablet 04/06 completed Not Available Not Available Not Available fluticasone propionate 50 mcg/actuati on nasal spray,suspe nsion 01/23 completed Not Available Not Available Not Available metformin ER 500 mg tablet,exte nded release 24 hr Take 1 tablet twice a day by oral route for 30 days. active Not Available Not Available No t Available metoclopram vita 10 mg tablet active Not Available Not Available Not Available buspirone 15 mg tablet 01/23 completed Not Available Not Available Not Available hydroxyzine pamoate 25 mg capsule active Not Available Not Available N ot Available tadalafil 5 mg tablet TAKE 1 TABLET BY MOUTH EVERY DAY active Not Available Not Available No t Available tadalafil 20 mg tablet TAKE 1 TABLET BEFORE SEX active Not Available Not Available No t Available duloxetine 30 mg capsule,del ayed release 09/07 completed Not Available Not Available Not Available fenofibrate micronized 130 mg capsule 01/23 completed Not Available Not Available Not Available Asmanex Twisthaler 220 mcg/actuati on(60 doses) breath activated inhalr 01/23 completed Not Available Not Available Not Available chlorhexidi ne gluconate 0.12 % mouthwash 01/23 completed Not Available Not Available Not Available Vitamin D active Not Available Not Cece ilable Not Available fenofibric acid (choline) 135 mg capsule,del ayed release Take 1 capsule every day by oral route as directed for 90 days. active Not Available Not Available No t Available TRUEplus Lancets 33 gauge 12/20 completed Not Available Not Available Not Available icosapent ethyl 1 gram capsule 09/07 completed Not Available Not Available Not Available Eliquis 5 mg tablet Take 1 tablet twice a day by oral route as directed for 90 days. 12/20 completed Not Available Not Available Not Available alogliptin 25 mg tablet 04/06 completed Not Available Not Available Not Available Jardiance 25 mg tablet Take 1 tablet every day by oral route. active Not Available Not Available No t Available True Metrix Glucose Test Strip 12/20 completed Not Available Not Available Not Available Spiriva Respimat 2.5 mcg/actuati on solution for inhalation 01/23 completed Not Available Not Available Not Available doxycycline hyclate 50 mg tablet 06/16 completed Not Available Not Available Not Available Ozempic 0.25 mg or 0.5 mg (2 mg/1.5 mL) subcutaneou s pen injector 04/06 completed Not Available Not Available Not Available Ozempic 1 mg/dose (4 mg/3 mL) subcutaneou s pen injector Inject 3 mL as needed by sub-q route. active Not Available Not Available No t Available Vitals Date Recorded Body height Provider Name an d Address Organization Details Last Updated DateTime 12/21/2023 185.42 cm ERI YANG [facility] 12/21/2023 16:00:50 Date Recorded Body mass index (BMI) Body weight Heart rate Oxygen saturation Oxygen saturation in Arterial blood by Pulse oximetry Systolic And Diastolic Provider Name and Address Organization Details Last Updated DateTime 4 31 kg/m2 631991. 21 g 60 /min 98 % 98 % 120/74 mm[Hg] Latricia [facility] 4 16:17:06 Date Recorded Body height Body mass index (BMI) Body weight Heart rate Oxygen saturation Oxygen saturation in Arterial blood by Pulse oximetry Systolic And Diastolic Provider Name and Address Organization Details Last Updated DateTime 5 33.02 cm 873.6 kg/m2 24527.4 g 53 /min 98 % 98 % 162/84 mm[Hg] Shannan Farrar [facility] 5 13:44:49 Date Recorded Body height Body mass index (BMI) Body weight Heart rate Oxygen saturation Oxygen saturation in Arterial blood by Pulse oximetry Systolic And Diastolic Provider Name and Address Organization Details Last Updated DateTime 3 185.42 cm 31 kg/m2 822878. 21 g 80 /min 96 % 96 % 144/90 mm[Hg] Latricia [facility] 3 13:43:14 Date Recorded Body height Body mass index (BMI) Body weight Heart rate Oxygen saturation Oxygen saturation in Arterial blood by Pulse oximetry Systolic And Diastolic Provider Name and Address Organization Details Last Updated DateTime 4 185.42 cm 30.6 kg/m2 719458. 43 g 56 /min 95 % 95 % 168/102 mm[Hg] Tracy Block [facility] 4 13:44:06 Social History Question Answer Notes LastModified by Organizat ion Details LastModified Time Tobacco Smoking Status [facility] 04/06/2022 10:55:48 Do You Have An Advance Directive? No Information not available 04/06/2022 Is Blood Transfusion Acceptable In An Emergency? No Information not available 04/06/2022 What Is Your Level Of Caffeine Consumption? Occasional Information not available 04/06/2022 What Is Your Code Status? Other Information not available 04/06/2022 What Type Of Diet Are You Following? REGULAR Information not available 04/06/2022 Do You Have A Directive To Physicians? No Information not available 04/06/2022 Do You Have A Medical Power Of Aircraft Maintenance Engineer? No Information not available 04/06/2022 What Was The Date Of Your Most Recent Tobacco Screening? 01/23/2025 criddles Information not available 01/23/2025 Do You Have An Out Of Hospital DNR? No Information not available 04/06/2022 What Is Your Relationship Status? Information not available 04/06/2022 Has Tobacco Cessation Counseling Been Provided? No Information not available 04/06/2022 Do You Have Any Dietary Restrictions? No Information not available 04/06/2022 Sex: Unknown Functional Status Question Answer Note LastModified by Organizat ion Details LastModified Time Do you use any illicit or recreational drugs? No Information not available 04/06/2022 Do you or have you ever used any other forms of tobacco or nicotine? No Information not available 04/06/2022 What is your level of alcohol consumption? Occasional Information not available 04/06/2022 Are you currently employed? No Information not available 04/06/2022 What is your exercise level? None Information not available 04/06/2022 Mental Status None recorded. Family History Relationship Description Onset Age of this Age Resolved Age Notes LastModified by Organization Details LastModified Time Father Coronary arterioscler osis Not available 2021 10:54:00 Father Myocardial infarction Not available 04/06 10:54:08 Father Heart failure Not available 2021 10:54:46 Father Sudden cardiac Not available 2021 10:55:12 Medical History No medical history recorded. Immunizations Vaccine Type Date Status Note Provider Name and Address Organization Details Recorded Time SARS-COV-2 (COVID-19) vaccine, UNSPECIFIED completed CELIA [facility] 04/06/2022 10:51:58 pneumococcal polysaccharide PPV23 7 completed AIXA sylvester, [facility] 04/06/2022 10:52:06 influenza, unspecified formulation 1 completed AIXA sylvester, [facility] 04/06/2022 10:52:28 Influenza, adjuvanted, quadrivalent, PF 2 completed Ximena sylvester, [facility] 09/07/2022 13:55:00 SARS-COV-2 (COVID-19) vaccine, UNSPECIFIED 1 completed Ximena sylvester, [facility] 09/07/2022 13:55:07 SARS-COV-2 (COVID-19) vaccine, UNSPECIFIED 1 completed Ximena sylvester, [facility] 09/07/2022 13:55:10 SARS-COV-2 (COVID-19) vaccine, UNSPECIFIED 1 completed Ximena sylvester, [facility] 09/07/2022 13:55:13 Pneumococcal Conjugate, unspecified formulation 1 [facility] 13:55:21 Past Encounters Encounter ID Performer Location Encounter Start Date Encounter Closed Date Diagnosis/Indication Diagnosis SNOMED-CT Code Diagnosis ICD10 Code Diagnosis Note [id number] Bryant Mendez MD [facility] [address] [place] [address] 04/06/2022 10:33:36 04/06/2022 11:57:59 Atrial fibrillation 36018567 I48.91 Persistent , quite likely exacerbate d by his suboptimal ly treated sleep apnea syndrome Obstructiv e sleep apnea syndrome 20856032 G47.33 Non-rheuma tic mitral regurgitation 644939830 I34.0 Atheroscle rosis of coronary artery without angina pectoris 8802726779 01587 I25.10 Stented co ronary artery 362283948 Z95.5 Right coronary artery, [facility], July 2021 [id number] Surjit Miner [facility] [address] [place] [address] 07/18/2022 10:23:48 07/18/2022 10:53:26 Dyspnea 003790589 R06.00 Mitral lisa ve regurgitation 25496997 I34.0 Chronic lung disease 413 722312 J98.4 Paroxysmal atrial fibrillation 006303894 I48.0 Type 2 la betes mellitus 10553690 E11.9 Essential hypertension 90705867 I10 Obstructiv e sleep apnea syndrome 98773869 G47.33 [id number] Bryant Mendez MD [place] [address] [place] [address] 09/07/2022 12:15:12 09/07/2022 14:37:05 Essential hypertension 95533681 I10 Mitral lisa ve regurgitation 09209597 I34.0 Paroxysmal atrial fibrillation 137261625 I48.0 Type 2 la betes mellitus 29741761 E11.9 Stented co ronary artery 450585239 Z95.5 Right [id number] Alessio Chirinos [facility] [address] [place] [id number] 06/15/2023 13:28:41 06/15/2023 14:02:37 Essential hypertension 91165474 I10 Obstructiv e sleep apnea syndrome 33060255 G47.33 Paroxysmal atrial fibrillation 451110364 I48.0 Type 2 la betes mellitus 83818608 E11.9 Stented co ronary artery 939202540 Z95.5 [id number] Alessio Chirinos [facility] [address] [place] [address] 12/21/2023 15:54:58 12/21/2023 16:24:27 Essential hypertension 65648415 I10 Type 2 la betes mellitus 00279700 E11.9 Obstructiv e sleep apnea syndrome 33759712 G47.33 Mitral lisa ve regurgitation 43373258 I34.0 Paroxysmal atrial fibrillation 928627682 I48.0 [id number] Bryant Mendez MD [place] [address] [place] [address] 06/27/2024 12:27:58 06/27/2024 14:23:54 Essential hypertension 09202453 I10 Atheroscle rosis of coronary artery without angina pectoris 5920304686 89517 I25.10 Chronic lung disease 413 351070 J98.4 Mitral lisa ve regurgitation 40386030 I34.0 Obstructiv e sleep apnea syndrome 83902572 G47.33 Paroxysmal atrial fibrillation 716346882 I48.0 Stented co ronary artery 131087550 Z95.5 Type 2 la betes mellitus 78654672 E11.9 [id number] Bryant Mendez MD [place] [address] [place] [address] 01/23/2025 13:20:35 01/23/2025 13:57:31 Stented coronary artery 652418183 Z95.5 Atheroscle rosis of coronary artery without angina pectoris 4438568657 82633 I25.10 Hyperlipidemia 12328302 E78.5 Essential hypertension 34916830 I10 Paroxysmal atrial fibrillation 740654020 I48.0 Type 2 la betes mellitus 81388105 E11.9 Chronic lung disease 413 624031 J98.4 Obstructiv e sleep apnea syndrome [id number] G47.33 History of benign neoplasm of brain [id number] Z86.011 Health Concerns Section Related Observation LastModified by Organization Detai ls LastModified Time None Recorded Concern Status LastModified by Organization Details LastModified Time None Recorded Advance Directives Directive N: Payers Insurance Date Sequence Insurance Name Policy Number Policy Kennedy Covered Member ID Kennedy Member ID Guarantor Name 01/23/2025 2 MEDICARE [place]: [place] [employer] [facility] Stone Walker [id number] Stone Walker 01/23/2025 [facility] [place] [place] [id number] Stone Walker 01/23/2025 [facility] Stone Walker [id number] Stone Walker 02/07/2025 1 [place] [id number] Stone Walker [id number] Stone Walker 01/23/2025 [facility] [place] ADA [id number] ADA [id number] Stone Walker 01/23/2025 [facility] Stone Walker [id number] Stone Walker Notes Date Note Type Note Provider Name and Address Organization Details Recorded Time 06/15/2023 text/html Is a 73-year-old gentleman with previous history of paroxysmal atrial fibrillation, sleep apnea, coronary disease status post remote coronary PCI, diabetes mellitus and hyperlipidemia who presents today for clinical follow-up. Patient relates he has been fatigued and dyspneic with activity. He is unsure when his thyroid was last checked. He is wearing his CPAP at home. Patient relates his home blood pressure readings typically average in the 140/90 range. Alessio Chirinos, [facility] [address], [place], [address], [facility] 06/15/2023 14:03:28 12/21/2023 text/html This is a 73-year-old male with previous history of paroxysmal atrial fibrillation, hypertension, sleep apnea who presents today for clinical follow-up status post recent cardiac catheterization in July of last year which noted mild underlying coronary disease his previous RCA stent was patent. Normal LVEF normal pulmonary artery filling pressures. Overall he relates he is doing quite well home blood pressure readings have been under good control. He is wearing his CPAP at night tolerating well. Alessio Chirinos, NIKITA [address], [place], [address], [facility] 12/21/2023 16:26:15 06/27/2024 text/html Stone Walker is a very pleasant 74-year-old male with difficulty hearing, history of PAF, history of hypertension, cardiac cath in July 2023 showing patent prior RCA stent sites and mild LCA disease here for routine follow-up. He was diagnosed with a brain tumor in April 2024. He has seen neurosurgery at and they are following that with serial MRIs. He states he was told there was a very low probability that the tumor was malignant. He is feeling well overall but he has had episodes of higher blood pressure. He is currently taking losartan 50 mg daily and Toprol XL 100 mg daily. We discussed switching his medications to losartan 50 mg p.o. twice daily and metoprolol to tartrate 50 mg p.o. twice daily and discontinuing the metoprolol succinate. He is happy to try that regimen. We also discussed using hydralazine on a as needed basis for blood pressures greater than 170 mmHg systolic or 95 mmHg diastolic. We have written all 3 of those prescriptions out for him. He sees Dr. Nguyen who manages his CPAP. He has been doing very well from a cardiac standpoint aside from the blood pressure. He had an echocardiogram today that showed LVEF of 60-65% with normal left ventricular wall thickness and normal global wall motion. He again had mild to moderate MR noted. His EKG today showed normal sinus rhythm 60 bpm with a right bundle branch block and a QTc of 484 ms. Surjit Agnes Miner, [address], [place], [address], [facility] 06/27/2024 14:27:52 01/23/2025 text/html Stone Walker is a very pleasant 74-year-old male with difficulty hearing, history of PAF, history of hypertension, cardiac cath in July 2023 showing patent prior RCA stent sites and mild LCA disease here for routine follow-up. He was diagnosed with a brain tumor in April 2024. He states he has been told that issue is stable with no progression and tumor size. His blood pressure is much improved after the changes made at his last visit. He states he is running within normal limits at home. He has had no chest pain, dyspnea, sense of increased or decreased heart rate, presyncope or syncope. His twelve-lead EKG shows sinus bradycardia 54 bpm with a QTc of 480 ms. He has a first-degree AV block and an occasional PAC noted as well. Overall he appears to be doing fairly well. He does note for about 10 to 15 years he has been seeing ghosts . He notes that these seem to appear primarily when he is waking up but have appeared during the day and moved in front of him causing him to stumble. He does note that these visions are not real. He states he is not getting any messages or hearing any noise that accompany these visions. He has not spoken to his neurologist about that issue. He feels that recently the ghost visions have been fewer in number. Surjit Miner, [facility] [address], [place], [address], [facility] [place] [facility] 01/23/2025 15:50:22
--- OUTSIDE RECORDS SUMMARY | 2025-03-02 21:50 | XMS_ITS | Encounter Summary ---
Author Organization [facility] Address 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 Gender Identity Not on file Sexual Orientation Not on file documented as of this encounter Plan of Treatment Not on file documented as of this encounter Procedures Procedure Name Priority Date/Time Associated Diagnosis Comments PATHOLOGY Routine 05/17/2021 10:00 AM CDT documented in this encounter Results * PATHOLOGY (05/17/2021 10:00 AM CDT) CASE REPORT Surgical Pathology Report Case: [id number] Authorizing Provider: Tomás Alamo PA Collected: 05/17/2021 10:00 AM Ordering Location: [facility] Received: 05/17/2021 12:52 PM Services [place] Pathologist: Dipak Perera MD Specimens: A) - Forearm, right, LIPOMA HRCN [id number] B) - Shoulder, left, SEBACEOUS CYST 05/18/2021 10:22 AM CDT [facility] FINAL DIAGNOSIS A. Soft tissue, right forearm, excision- Angiolipoma B. Skin, left shoulder, excision- Epidermal inclusion cyst 05/18/2021 10:22 AM [facility] Verified by Dipak Perera MD on 05/18/2021 at 1021 CDT GROSS DESCRIPTION A. Received in formalin is a fragment of yellow-calderon fatty tissue measuring 2.0 x 1.6 x 0.6 cm. The surface is covered in a pink-red membrane. The specimen is bisected to reveal a yellow-calderon homogenous surface without obvious irregularities. TE1. B. Received in formalin is a 1.7 x 1.3 x 1.4 cm calderon-wong cysts. There is an attached ellipse of skin measuring 2.0 cm in length and 0.6 cm in width. Sectioning into the specimen reveals a cyst filled with calderon-white caseous material. RSS 1. KM 05/18/2021 10:22 AM [facility] OPERATIVE PROCEDURE A. [id number] B. [id number] 05/18/2021 10:22 AM [facility] CLINICAL INFORMATION No Dx found. 05/18/2021 10:22 AM [facility] COMMENT [facility] Surgical cases might have been signed out in the following labs: [facility], CLIA#[id number] , [address], [place] [address] [facility], CLIA# [id number], [address] [place] [address] 05/18/2021 10:22 AM [facility] Tissue (Forearm, right) 05/17/2021 10:00 AM CDT 05/17/2021 12:52 PM CDT Tissue specimen (specimen) (Shoulder, left) 05/17/2021 10:22 AM CDT 05/17/2021 12:52 PM CDT Tomás SAN PATHOLOGY/CYTOLOGY ORDERABLES F inal Result [facility] CLIA# [id number] [address] [place] [address] documented in this encounter Visit Diagnoses Not on filedocumented in this encounter
[2025-03-02 22:50] LABS: Troponin-I High Sensitivity 7.1 ng/L (<3.5-35.0)
[2025-03-02 22:54] VITALS: BP 143/111; PULSE 98; RESP 22; TEMP 36.8; O2SAT 92
--- NOTE | 2025-03-02 23:14 | PC.NURSE ---
provider at bedside, 18g placed in right wrist, pt awaiting ct scan
[2025-03-02 23:33] LABS: B Type Natriuretic Peptide 1007 pg/mL (<100)
[2025-03-02] MEDS: iohexoL 350 MG/ML 100 ML INFUS..BTL 65 ML IV (23:57)
[2025-03-03 00:04] VITALS: BP 154/104; PULSE 78
--- NOTE | 2025-03-03 00:08 | PC.NURSE ---
pt medicated per MAR for 2/10 chest pain. B/P documented
--- NOTE | 2025-03-03 00:13 | PC.NURSE ---
pt states chest pain has resolved with 1 nitro tab.
[2025-03-03 02:04] VITALS: BP 143/95; PULSE 77; RESP 20; TEMP 36.4; O2SAT 93
[2025-03-03 02:05] LABS: Glucose, Whole Blood 65 mg/dL (60-115)
--- NOTE | 2025-03-03 02:05 | PC.NURSE ---
pt rang melgar reporting headache. This RN noted pt to be diaphoretic at this time. POC obtained of 65, pt given turkey sandwich and apple juice. V/S stable. Provider aware
[2025-03-03 03:06] VITALS: BP 129/82
[2025-03-03] MEDS: Furosemide 40 MG/4 ML VIAL IVPUSH (03:06)
[2025-03-03 03:08] VITALS: BP 129/82; PULSE 91; RESP 17; TEMP 36.5; O2SAT 99
[2025-03-03 03:15] VITALS: BP 129/82; PULSE 91; RESP 17; TEMP 36.5; O2SAT 99
== END 2025-03-03 03:18 | disposition home or self-care (01) ==
PROVIDERS: Emergency Provider Emergency Medicine
DX: I50.9 Heart failure, unspecified (principal); I48.91 Unspecified atrial fibrillation; R07.89 Other chest pain; I45.10 Unspecified right bundle-branch block; R53.1 Weakness; R06.02 Shortness of breath; I10 Essential (primary) hypertension; Z03.818 Encounter for observation for suspected exposure to other biological agents ruled out; Z79.899 Other long term (current) drug therapy
CPT/HCPCS: 36415; 71045; 71275; 80053; 82947; 83880; 84484; 85025; 87637; 93005; 96374; 99285; J1938; Q9967

== ENCOUNTER → 2025-03-02 20:12 | Outpatient (BNV) | payer BC, MEDICARE, SELFPAY | PROVIDERS: Emergency Provider Emergency Medicine; Visit Provider Internal Medicine Cardiovascular Disease | DX: I48.91 Unspecified atrial fibrillation (principal); I45.10 Unspecified right bundle-branch block; Z95.0 Presence of cardiac pacemaker | CPT/HCPCS: 93010 ==

== ENCOUNTER → 2025-03-02 20:17 | Outpatient (BNV) | payer BC, MEDICARE, SELFPAY | PROVIDERS: Visit Provider Radiology Diagnostic Radiology | DX: R06.00 Dyspnea, unspecified (principal) | CPT/HCPCS: 71045 ==

== ENCOUNTER 2025-03-08 14:27 | Inpatient (IN) | payer MEDICARE, BC, SELFPAY ==
[2025-03-08] VITALS (8 sets, daily range): BP systolic 148–168; BP diastolic 90–123; PULSE 88–98; RESP 17–27; TEMP 36.4–37; O2SAT 93–100; BMI 26.6; BMI 27.7
--- NOTE | 2025-03-08 | ECG_ITS ---
Test Reason : AFIB Blood Pressure : */* mmHG Vent. Rate : 81 BPM Atrial Rate : * BPM P-R Int : * ms QRS Dur : 164 ms QT Int : 440 ms P-R-T Axes : * 65 12 degrees QTcB Int : 511 ms Atrial fibrillation Right bundle branch block Inferior infarct (cited on or before 02-Mar-2025) Abnormal ECG When compared with ECG of 02-Mar-2025 20:13, No significant change was found Referred By: Francisca Shipley Electronically Signed By: Jignesh Mcdaniel
--- NOTE | ~2025-03-08 | XR_ITS ---
CLINICAL HISTORY: sob 2 view chest x-ray Comparison: CT/SR - CT ANGIO CHEST PE PROTOCOL - 03/02/25 23:47 EDT CR - XR CHEST 1V - 03/02/25 20:36 EDT Findings: Persistent small right upper lobe area of consolidation Persistent prominence of the pulmonary vasculature. Small area of patchy opacity in the peripheral left lung base. Unchanged trace bilateral pleural effusions. Heart size is normal. No acute fracture. IMPRESSION: Persistent areas of possible infection in the right upper lobe and peripheral left lung base. Persistent prominence of the pulmonary vasculature suggesting CHF/pulmonary edema. Trace bilateral pleural effusions. This document has been electronically signed by: Peter Granados MD on 03/08/2025 16:19:42
--- NOTE | 2025-03-08 14:48 | ED_ITS ---
HPI - SOB/Dyspnea General Chief Complaint: Arrhythmia/Palpitations Stated Complaint: sob, CP yesterday Time Seen by Provider: 03/08/25 15:38 Source: patient and family Mode of arrival: ambulatory Limitations: no limitations History of Present Illness ED Provider: HPI Narrative: 74-year-old with prior history of [place] x2, was seen in the emergency department just a week ago at that point he was in AFib, dyspneic, noted to be in CHF, discharged home on Eliquis and Lasix, felt better for few days, doubled up on Lasix at home and re-presented with shortness of breath upon exertion. No fevers or chills no hemoptysis. Related Data Previous Rx's ?Medication ?Instructions ?Recorded apixaban 5 mg (74 tabs) tablets in 5 mg PO BID #74 ea 03/03/25 a dose pack (Eliquis DVT-PE Treat 30D Start) furosemide 20 mg tablet (Lasix) 20 mg PO DAILY #7 tabs 03/03/25 Allergies Allergy/AdvReac Type Severity Reaction Status Date / Time erythromycin base AdvReac Unknown Verified 03/08/25 14:47 lisinopril AdvReac Unknown Verified 03/08/25 14:47 Penicillins AdvReac Unknown Verified 03/08/25 14:47 Review of Systems 2 Constitutional: Constitutional: Reports as per [facility] Social History Social History Smoked in Last 30 Days: No Use of substances other than those prescribed or required for medical reasons: No Advance Directives: No Advance Directives Information Provided: Yes Physical Exam 2 Vital Signs: Vital Signs: Last Vital Signs Temp 98.2 F 03/08/25 16:00 Pulse 94 03/08/25 16:00 Resp 20 03/08/25 16:00 BP 168/108 H 03/08/25 16:02 Pulse Ox 95 03/08/25 16:00 O2 Del Method Room Air 03/08/25 16:00 BMI result Body Mass Index 26.6 Const: Other: * Gen: ?Overall well-appearing patient * HEENT: PERRLA, EOMI, MMM, * Neck: JVD present * CV: Irregular regular radial pulses +2 * Resp: ?No wheezing rales rhonchi no stridor moving air well * Abd: ?Bowel sounds are present, no tenderness no rebound no rigidity * MSK: FROM, strength 5/5 all extremities * Skin: Warm, dry, intact, no lower extremity edema * Neuro: ?Alert and oriented x3, moving upper and lower extremities symmetrically, no obvious facial asymmetry noted Course Course Course Narrative: This is a RME preformed in triage by Francisca Shipley PA-C. Date:03/08/2025, time 03/08/25. Patient presents with weakness Since yesterday patient has had anymore weakness but this is also gradual. He has a known history of proximal AFib was off it for a while. See chief complaint for further information given as it was thorough. On physical exam his pulse is irregular irregular. He does have cold hands. There is no concerns for any respiratory distress on exam however her rate erratic. There was plans for him to go back to [place] but due to his weakness he is not been back to this reason he has also been off Lasix he was seen here 6 days ago, no current cp Work UP: cardiac work up repeated Will defer full ROS and PE to treating provider. Patient will continued to be monitored in the interim. Medical Decision Making Medical Decision Making [facility] Narrative: 74-year-old male presenting with worsening dyspnea despite being on furosemide, he was seen here last week at that point he was worked up for PE, noted to be in AFib, started on blood thinners, did have CTA, we presenting with shortness of breath I ambulated the patient, and when he was ambulating he had dipped down to low 90s and 89% just working a short distance, I did perform bedside ultrasound of the heart is no pericardial effusion, no RV strain but he is RV is somewhat dilated and I did not appreciate a good squeeze, I suspect he has RV dysfunction, he did have 2 prior MIs we do not have prior information on his echoes, I ran his case by Dr. Mcdaniel from Cardiology recommendation is for admission, cardiology consult tomorrow, will give a dose of furosemide, this has been discussed with the patient and his son Differential Diagnosis Differential Diagnoses: The differential diagnosis associated with the presentation includes CHF, COPD exacerbation, pneumonia, pneumothorax, ACS, PE, Admission/Observation Consideration of admission/observation: Escalation of care including admission/observation considered Consult Healthcare Provider Management of the patient was discussed with: Stem Cleaning Machine Feeder (Cardiology) Lab Data MDM Lab Attestation statement: I reviewed the patient's lab results. 03/08/25 15:16 03/08/25 15:16 Labs: Lab Results 03/08/25 Range/Units 15:16 WBC 7.8 (4.8-10.8) X10*3/uL RBC 5.07 (4.60-5.80) X10*6/uL Hgb 15.3 (14.0-18.0) g/dl Hct 45.0 (42.0-52.0) % MCV 88.8 (80.0-98.0) fL MCH 30.2 (27.0-33.0) pg MCHC 34.0 (31.0-36.0) g/dl RDW 14.6 (11.0-16.0) % Plt Count 229 (160-400) X10*3/uL MPV 12.1 (9.4-12.4) fL Immature Gran % (Auto) 0.4 (0.0-0.4) % Neut % (Auto) 69.8 (45-73) % Lymph % (Auto) 20.8 (20-40) % Sumner % (Auto) 7.5 (2-11) % Eos % (Auto) 1.0 (0-4) % Baso % (Auto) 0.5 (0-2) % Lymph # (Auto) 1.6 (1.2-4.9) X10*3/uL Sumner # (Auto) 0.6 (0.1-1.2) X10*3/uL Eos # (Auto) 0.1 (0.0-0.4) X10*3/uL Baso # (Auto) 0.0 (0.0-0.2) X10*3/uL Abs Immat Gran (auto) 0.03 (0.00-0.03) X10*3/uL Absolute Neuts (auto) 5.5 (2.0-8.3) x10*3/uL Absolute Nucleated RBC 0.000 (0.0-0.012) X10*3/uL Nucleated RBC % (auto) 0.0 (0.0-0.2) /100WBC Sodium 139 (135-145) mmol/L Potassium 3.5 D (3.3-5.1) mmol/L Chloride 101 (96-108) mmol/L Carbon Dioxide 29 (22-29) mmol/L Anion Gap 13 (12-20) BUN 13 (9-16) mg/dL Creatinine 1.03 (0.5-1.4) mg/dL Estim Creat Clear Calc 70.0 Estimated GFR > 60 Random Glucose 132 H (60-115) mg/dL Fasting Glucose 133 H (60-99) mg/dL Calcium 9.9 (8.4-10.2) mg/dL Magnesium 1.9 (1.6-2.6) mg/dL Total Bilirubin 1.3 H (0.0-1.0) mg/dL AST 20 (5-37) U/L ALT 11 (0-40) U/L Alkaline Phosphatase 59 (39-117) U/L Troponin I High Sens 4.7 (<3.5-35.0) ng/L B-Natriuretic Peptide 1176 H (<100) pg/mL Total Protein 6.6 (6.5-8.0) g/dL Albumin 4.2 (3.5-5.0) g/dL Independent Interpretation I performed an independent interpretation of an: EKG (81 beats per minute, AFib and right bundle-branch block, no new changes) and Plain X-Ray (Increased vascular congestion, no consolidations) Critical Care Time Critical Care Time Total Critical Care Time: 45 Attestation: Time is exclusive of separately billable procedures. Time includes: direct patient care, patient reassessment, coordination of patient care, interpretation of data (laboratory data, pulse oximetry, arterial blood gases and chest xrays), review of patient's medical records, medical consultation and documentation of patient care. Procedures excluded from critical care time: central intravenous line placement and electrocardiography. Discharge Plan Discharge Clinical Impression: Acute exacerbation of CHF (congestive heart failure), A-fib Patient Disposition: Admitted As Inpatient Print Language: Tristanian
[2025-03-08 15:21] LABS: Hematocrit 45.0 % (42.0-52.0); Hemoglobin 15.3 g/dl (14.0-18.0); Imm Gran Abs Auto 0.03 X10*3/uL (0.00-0.03); Imm Gran Pct Auto 0.4 % (0.0-0.4); Lymphocytes Absolute Auto 1.6 X10*3/uL (1.2-4.9); MANUAL DIFF FLAG NO; Mean Corpuscular HGB Conc 34.0 g/dl (31.0-36.0); Mean Corpuscular Hemoglobin 30.2 pg (27.0-33.0); Mean Corpuscular Volume 88.8 fL (80.0-98.0); NRBC Abs Auto 0.000 X10*3/uL (0.0-0.012); NRBC Pct Auto 0.0 /100WBC (0.0-0.2); Platelet Count 229 X10*3/uL (160-400); Red Blood Count 5.07 X10*6/uL (4.60-5.80); White Blood Count 7.8 X10*3/uL (4.8-10.8)
[2025-03-08 15:35] LABS: Alanine Aminotransferase 11 U/L (0-40); Albumin Level 4.2 g/dL (3.5-5.0); Alkaline Phosphatase 59 U/L (39-117); Anion Gap 13 (12-20); Aspartate Amino Transferase 20 U/L (5-37); Blood Urea Nitrogen 13 mg/dL (9-16); Calcium 9.9 mg/dL (8.4-10.2); Carbon Dioxide 29 mmol/L (22-29); Chloride 101 mmol/L (96-108); Creatinine Clr Calc Pharmacy 70.0; Estimated Glomerular Filt Rate > 60; Magnesium 1.9 mg/dL (1.6-2.6); Potassium 3.5 mmol/L (3.3-5.1); Sodium 139 mmol/L (135-145); Total Protein 6.6 g/dL (6.5-8.0)
[2025-03-08 15:40] LABS: B Type Natriuretic Peptide 1176 pg/mL (<100)
[2025-03-08 15:42] LABS: Troponin-I High Sensitivity 4.7 ng/L (<3.5-35.0)
--- NOTE | 2025-03-08 16:17 | PC.NURSE ---
Ambulation trial completed per request of ED provider. Pt ambulates without SOB, cough, dizziness. O2 stable at 96% with one noted decrease to 89% with talking while walking. Review of ambulation trail compeletd with Dr. Grullon
[2025-03-08] MEDS: Furosemide 40 MG/4 ML VIAL IVPUSH (16:53)
--- NOTE | 2025-03-08 17:53 | PM.IMHP ---
History of Present Illness Date of Service: 03/08/25 Attending physician on admission: Tanner Moscoso Chief Complaint: Chest pain Stone Walker is a very pleasant 74 years old man with past medical history significant for CHF, atrial fibrillation on Eliquis -has been cardioverted X2, hyperlipidemia, CAD status post stenting (last 2021) and essential hypertension presents to the emergency department complaining of chest pain/ache in the middle of the chest, lethargy, palpitations and shortness on breath. He has been experiencing these symptoms since Monday. He is currently free of chest pain. He also reported some headache, fatigue, generalized malaise and stomachache. He increased his lactulose from 20 mg once daily to twice daily. He also uses spironolactone. He has been your seems Ozempic, last dose was yesterday. Denied tobacco smoking, alcohol abuse or illicit drug use. The patient is from [place]. Last Monday he was evaluated in the ED. At that time, his x-ray showed patchy bilateral airspace opacity concerning for pneumonia with a pleural effusion or pneumothorax. He also underwent a chest CTA that showed no pulmonary embolism or a small right upper lobe consolidation, peribronchial thickening, pulmonary edema with small bilateral pleural effusions. Viral panel was negative for influenza, RSV and COVID. His son was at bedside. In the ED today, he was found to have the dyspnea, last blood pressure is 148/118. Oxygen saturation is normal on room air however it dropped to 89% with ambulation. Blood workup is remarkable for normal CBC. CRP is elevated, 0.89. There are no electrolyte imbalances. Creatinine is 1.03 and BUN 13. LFTs are unremarkable except for minimal elevation of total bilirubin. BNP is 1176 and troponin 4.7. ECGs today showed atrial fibrillation, right bundle-branch block without ischemic changes. CXR today showed persistent areas of possible infection in the right upper lobe and peripheral left lung base, persistent prominence of pulmonary vasculature suggesting CHF/pulmonary edema and trace bilateral pleural effusion. ED tx: Furosemide 40 mg IV. Review of Systems Review of Systems: All 12 systems were reviewed and normal except as noted in HPI. [facility] Medical History (Updated 03/08/25 @ 20:58 by Tanner Moscoso MD) GERD (gastroesophageal reflux disease) Hyperlipidemia Type 2 diabetes mellitus CHF (congestive heart failure) A-fib Essential hypertension Social History Smoked in Last 30 Days: No Use of substances other than those prescribed or required for medical reasons: No Advance Directives: No Advance Directives Information Provided: Yes Meds Allergies Allergy/AdvReac Type Severity Reaction Status Date / Time erythromycin base AdvReac Unknown Verified 03/08/25 14:47 lisinopril AdvReac Unknown Verified 03/08/25 14:47 Penicillins AdvReac Unknown Verified 03/08/25 14:47 Active Medications: Current Medications Acetaminophen (Acetaminophen 325 Mg Tablet) 975 mg PO Q6H PRN PRN Reason: Pain, Mild 1-3,fever,headache Calcium Carbonate (Calcium Carbonate 750 Mg Tab.Chew) 750 mg PO Q4H PRN PRN Reason: Heartburn Magnesium Hydroxide (Milk Of Magnesia 30 Ml Oral.Susp) 30 ml PO DAILY PRN PRN Reason: Constipation Sodium Chloride (0.9 % Sodium Chloride Flush 3 Ml Syringe) 3 ml IVFLUSH [facility] Medications ?Medication ?Instructions ?Recorded ?Confirmed ?Last Taken ?Type albuterol sulfate 90 mcg/actuation 2 puff inhalation Q4-6H PRN 03/08/25 03/08/25 Unknown History aerosol inhaler Shortness Of Breath Or Wheezing alogliptin 25 mg tablet 25 mg PO DAILY 03/08/25 Unknown History amiodarone 200 mg tablet 200 mg PO DAILY 03/08/25 Unknown History atorvastatin 20 mg tablet 20 mg PO BEDTIME 03/08/25 03/08/25 Unknown History bupropion HCl 150 mg tablet,12 hr 150 mg PO DAILY 03/08/25 03/08/25 Unknown History sustained-release cetirizine 10 mg tablet 10 mg PO DAILY 03/08/25 Unknown History cholecalciferol (vitamin D3) 50 50 mcg PO DAILY 03/08/25 03/08/25 Unknown History mcg (2,000 unit) capsule (Vitamin D3) doxazosin 8 mg tablet 8 mg PO BEDTIME 03/08/25 Unknown History empagliflozin 25 mg tablet 25 mg PO DAILY 03/08/25 03/08/25 Unknown History (Jardiance) fenofibrate micronized 130 mg 130 mg PO DAILY 03/08/25 03/08/25 Unknown History capsule fluticasone propionate 50 2 spray intranasal DAILY PRN 03/08/25 03/08/25 Unknown History mcg/actuation nasal Allergy Symptoms spray,suspension gabapentin 400 mg capsule 400 mg PO BID 03/08/25 03/08/25 Unknown History losartan 50 mg tablet 50 mg PO BID 03/08/25 03/08/25 Unknown History metformin 500 mg tablet,extended 1,000 mg PO DAILY 03/08/25 03/08/25 Unknown History release 24 hr metoprolol tartrate 50 mg tablet 50 mg PO BID 03/08/25 03/08/25 Unknown History pantoprazole 40 mg tablet,delayed 40 mg PO BID 03/08/25 Unknown History release semaglutide 1 mg/dose (4 mg/3 mL) 1 mg subcut FR 03/08/25 03/08/25 03/07/25 History subcutaneous pen injector (Ozempic) spironolactone 25 mg tablet 25 mg PO BID 03/08/25 Unknown History tadalafil 5 mg tablet 5 mg PO DAILY 03/08/25 03/08/25 Unknown History tamsulosin 0.4 mg capsule 0.4 mg PO DAILY 03/08/25 Unknown History venlafaxine 75 mg capsule,extended 75 mg PO DAILY@199903/08/25 03/08/25 Unknown History release 24 hr venlafaxine 75 mg capsule,extended 150 mg PO DAILY@0803/08/25 03/08/25 Unknown History release 24 hr Physical Exam Vital Signs and Narrative: Vital Signs: Last Vital Signs Temp 98.2 F 03/08/25 16:00 Pulse 94 03/08/25 16:00 Resp 20 03/08/25 16:00 BP 150/109 H 03/08/25 16:53 Pulse Ox 95 03/08/25 16:00 O2 Del Method Room Air 03/08/25 16:00 BMI result Body Mass Index 26.6 Constitutional - Awake and Alert, No apparent distress. Afebrile. HEENT - PER, EOMI Heart - RRR, No murmurs. Lungs - Normal lung expansion, Normal respiratory effort, No respiratory distress. Decreased breath sound at bases. No wheezing. No rhonchi. Abdominal - NT / ND; +BS; No rebound or guarding Extremities - minimal edema to the lower extremities. Musculoskeletal - Normal inspection, normal ROM Skin - Warm/Dry. Non pallor. No jaundice. Neurological - Alert & oriented x3. Moving all extremities spontaneously. Psychological - Appropriate affect Results Labs 03/08/25 15:16 03/08/25 15:16 Labs: Laboratory Results - last 24 hr 03/08/25 15:16 MCV 88.8 MCH 30.2 MCHC 34.0 RDW 14.6 Plt Count 229 MPV 12.1 Immature Gran % (Auto) 0.4 Neut % (Auto) 69.8 Lymph % (Auto) 20.8 [place] % (Auto) 7.5 Eos % (Auto) 1.0 Baso % (Auto) 0.5 Lymph # (Auto) 1.6 [place] # (Auto) 0.6 Eos # (Auto) 0.1 Baso # (Auto) 0.0 Abs Immat Gran (auto) 0.03 Absolute Neuts (auto) 5.5 Absolute Nucleated RBC 0.000 Nucleated RBC % (auto) 0.0 Anion Gap 13 Estim Creat Clear Calc 70.0 Estimated GFR > 60 Random Glucose 132 H Fasting Glucose 133 H Calcium 9.9 Magnesium 1.9 Total Bilirubin 1.3 H AST 20 ALT 11 Alkaline Phosphatase 59 B-Natriuretic Peptide 1176 H Total Protein 6.6 Albumin 4.2 Assessment and Plan (1) Pneumonia: Qualifiers: Pneumonia type: due to unspecified organism Laterality: right Lung location: upper lobe of lung Qualified Code(s): J18.9 - Pneumonia, unspecified organism Status: Acute (2) Pulmonary edema: Qualifiers: Chronicity: acute Qualified Code(s): J81.0 - Acute pulmonary edema Status: Acute (3) Bilateral pleural effusion: Status: Acute (4) Acute exacerbation of CHF (congestive heart failure): Qualifiers: Heart failure type: right-sided Qualified Code(s): I50.813 - Acute on chronic right heart failure Status: Acute Plan Stone Walker is a 74 y/o man visiting from [place] admitted with: Right upper lobe consolidation/pneumonia associated with pulmonary edema and bilateral small pleural effusions. Admit to hospitalist service. Telemetry. Pulse oximetry. Supplemental O2 to keep O2 sats > 90%. Start empiric IV antibiotic therapy with ceftriaxone and azithromycin. Check procalcitonin, CRP, Legionella Ag urine, Strep Pneumo Ag urine and respiratory panel. Check echocardiogram. Continue Lasix 40 mg IV twice lately. Continue spironolactone, metoprolol, losartan and Jardiance. Daily weights. Low-salt diet. Recheck BNP in 2 days. Cardiology consult. Atrial fibrillation, longstanding persistent. Had cardioversion x2. Currently rate controlled. Continue amiodarone (when verified by pharmacy), metoprolol and Eliquis. Telemetry. CAD s/p stenting. Continue aspirin and statin. Essential hypertension. Continue metoprolol, losartan and spironolactone. Continue doxazosin (when verified by pharmacy). Hyperlipidemia. Continue statin. Type 2 diabetes mellitus. BG checks before meals at bedtime. Metformin on hold. Insulin sliding scale. On Jardiance. On Ozempic. Last dose yesterday. DVT prophylaxis: On Eliquis Code status: Full Patient will need hospitalization for at least 2 midnights due to dry upper lobe consolidation pneumonia associated with pulmonary edema treatment with IV antibiotics, supplemental oxygen as needed, IV diuresis and evaluation by subspecialty. Quality Stroke Does the patient have a stroke diagnosis?: No VTE Prior VTE?: No VTE Risk Level:: Medical - moderate - high VTE Device Contraindication: Treatment Not Indicated VTE Drug Contraindication: N/A - Med Ordered
--- NOTE | 2025-03-08 18:46 | PHA.MEDREC ---
Addendum entered by Eliza Hyde [facility] 03/10/25 11:13: RE: amiodarone 200 mg daily, spironolactone 25 mg bid, tamsulosin 0.4 mg daily, doxazosin 8 mg at bedtime, alogliptin 25 mg daily These meds were on patient's own med list (in phone) but there are no pharmacy claims for them. I called [facility] ([phone]), [facility] ([phone]) and [facility] ([phone]) and they all confirmed they have NO record of filling these meds. I spoke to Rose Russell about the situation and she still wanted them to remain in patient's home med list. Addendum entered by Ryanne Barry [facility] 03/08/25 18:57: REVIEWED BY [facility] Original Note: Pharmacy Consult ? Medication Reconciliation Pharmacy has completed the medication reconciliation. Spoke with patient to confirm medications, he also had a list on his phone. Patient reports he started eliquis and he finished furosemide rx yesterday. He took 1 tab bid of furosemide for 2 days during his course ( and ). 7 medications on medication list are not on claims (amiodarone, spironolactone, tamsulosin, doxazosin, alogliptan, Ds, and cetirizine. His [facility] [place] did not have these on file. His other pharmacy ([facility]) is closed on weekends, can follow up for these medications on Monday ( ). Patient reports he is not taking hydralazine 10 mg tid, despite a claim for it. He takes metformin 500 mg 2 tabs in the evening. He takes pantoprazole bid (per his list). He takes Ozempic on Fridays, had yesterday. He takes 2 tabs of venlafaxine in the morning and 1 in the evening. Patient reports he took his evening meds last night and morning meds today (including eliquis).
[2025-03-08 20:50] LABS: Procalcitonin 0.02 ng/mL
[2025-03-08 21:46] LABS: Troponin-I High Sensitivity 5.5 ng/L (<3.5-35.0)
[2025-03-08 21:59] LABS: Glucose, Whole Blood 105 mg/dL (60-115)
[2025-03-08] MEDS: buPROPion HCl XL 150 MG TAB.ER.24H PO (22:23)
[2025-03-08] MEDS: Venlafaxine HCl ER 75 MG CAP.ER.24H PO (22:24)
[2025-03-08] MEDS: 0.9 % Sodium Chloride Flush 3 ML SYRINGE IVFLUSH (22:25)
[2025-03-09] VITALS (8 sets, daily range): BP systolic 137–160; BP diastolic 74–112; PULSE 74–88; RESP 18–20; TEMP 36–36.3; O2SAT 94–98
[2025-03-09 07:00] LABS: Glucose, Whole Blood 100 mg/dL (60-115)
[2025-03-09 07:02] LABS: MANUAL DIFF FLAG NO
[2025-03-09 07:11] LABS: Hematocrit 44.6 % (42.0-52.0); Hemoglobin 14.7 g/dl (14.0-18.0); Imm Gran Abs Auto 0.03 X10*3/uL (0.00-0.03); Imm Gran Pct Auto 0.4 % (0.0-0.4); Lymphocytes Absolute Auto 2.5 X10*3/uL (1.2-4.9); Mean Corpuscular HGB Conc 33.0 g/dl (31.0-36.0); Mean Corpuscular Hemoglobin 29.9 pg (27.0-33.0); Mean Corpuscular Volume 90.8 fL (80.0-98.0); NRBC Abs Auto 0.000 X10*3/uL (0.0-0.012); NRBC Pct Auto 0.0 /100WBC (0.0-0.2); Platelet Count 193 X10*3/uL (160-400); Red Blood Count 4.91 X10*6/uL (4.60-5.80); White Blood Count 7.2 X10*3/uL (4.8-10.8)
[2025-03-09 07:26] LABS: Anion Gap 14 (12-20); Blood Urea Nitrogen 15 mg/dL (9-16); Calcium 9.5 mg/dL (8.4-10.2); Carbon Dioxide 27 mmol/L (22-29); Chloride 104 mmol/L (96-108); Creatinine Clr Calc Pharmacy 76.7; Estimated Glomerular Filt Rate > 60; Magnesium 1.9 mg/dL (1.6-2.6); Potassium 3.2 mmol/L (3.3-5.1); Sodium 142 mmol/L (135-145)
[2025-03-09] MEDS: Furosemide 40 MG/4 ML VIAL IVPUSH ×2 (08:37→16:57)
[2025-03-09] MEDS: Venlafaxine HCl ER 150 MG CAP.ER.24H PO (08:39)
[2025-03-09] MEDS: 0.9 % Sodium Chloride Flush 3 ML SYRINGE IVFLUSH ×3 (08:39→21:19)
--- NOTE | 2025-03-09 08:47 | MHC.CM.PN ---
CM met with Patient at bedside. Patient lives in [place] and is here visiting his Son, who will transport at time of dc. Patient will be moving to [place] soon; he has rented an apartment and will be living there alone. Patient is independent and home/self care is his goal. CM has initiated and will follow for dc planning. PCP in [facility] is Dr. Angeles.
[2025-03-09 10:52] LABS: Glucose, Whole Blood 86 mg/dL (60-115)
[2025-03-09 11:40] LABS: Chlamydia pneumoniae PCR Not Detected (Not Detect.); Coronavirus 229E PCR Not Detected (Not Detect.); Coronavirus HKU1 PCR Not Detected (Not Detect.); Coronavirus NL63 PCR Not Detected (Not Detect.); Coronavirus OC43 PCR Not Detected (Not Detect.); RSV PCR Not Detected (Not Detect.); Rhino/Enterovirus PCR Not Detected (Not Detect.)
[2025-03-09 11:50] LABS: Influenza A H1 PCR Not Detected (Not Detect.); Influenza A H1-2009 PCR Not Detected (Not Detect.); Influenza A H3 PCR Not Detected (Not Detect.); SARS-CoV-2 PCR Not Detected (Not Detect.)
--- NOTE | 2025-03-09 12:09 | PM.CNCAR ---
History of Present Illness History of Present Illness Date of Service: 03/09/25 Requesting physician: Francine Alva Chief complaint: Pulmonary Edema Narrative: [age] year gentleman presenting for shortness of breath, fatigue and left-sided dull ache. He is from [place] and reports previous coronary disease and stents. He was following with Dr. Bryant Mendez there. He came last week with fatigue and shortness of breath and was noticed to be in atrial fibrillation. He was previously not on apixaban although he reports that he had episodes of atrial fibrillation. 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 There are few medications on the list which are unclear whether he is taking them are not including amiodarone. Last week presentation was thought to be AFib and heart failure and was given 20 mg of Lasix and Eliquis and sent home because his plan was to return back to [place]. Apparently in this week he did not feel better and was getting shortness of breath and fatigue and also had another episode of left-sided dull ache and came to the emergency department. He was noticed to be in atrial fibrillation. His high sensitivity troponin levels were negative. His imaging raise concern for congestive heart failure and was admitted. He also had an echocardiogram performed by the ER doctor which showed moderate RV dilation. I reviewed the echo and in did show right ventricular dilation but no obvious dysfunction was noted. We will get a dedicated echocardiogram. [facility] Past Medical History Medical History (Updated 03/09/25 @ 12:13 by Jignesh Mcdaniel MD) A-fib Mass, brain Sarcoidosis GERD (gastroesophageal reflux disease) Hyperlipidemia Type 2 diabetes mellitus CHF (congestive heart failure) Essential hypertension Social History Social History Household Members: None Housing: House Do you presently have visiting nurse or other home services: No Patient Tobacco Use Status: Never used Tobacco service: Yes Meds Allergies Allergy/AdvReac Type Severity Reaction Status Date / Time erythromycin base AdvReac Unknown Verified 03/08/25 14:47 lisinopril AdvReac Unknown Verified 03/08/25 14:47 Penicillins AdvReac Unknown Verified 03/08/25 14:47 Active Medications: Current Medications Acetaminophen (Acetaminophen 325 Mg Tablet) 975 mg PO Q6H PRN PRN Reason: Pain, Mild 1-3,fever,headache Last Admin: 03/08/25 22:22 Dose: 975 mg Albuterol/Ipratropium (Albuterol/Iprat 2.5/0.5mg 3 Ml Ampul.Neb) 3 ml INHALE Q3H PRN PRN Reason: wheezing Apixaban (Apixaban 5 Mg Tablet) 5 mg PO BID [facility] Last Admin: 03/09/25 08:39 Dose: 5 mg Atorvastatin Calcium (Atorvastatin Calcium 20 Mg Tablet) 20 mg PO BEDTIME [facility]UDENC[facility] Last Admin: 03/08/25 22:23 Dose: 20 mg Bupropion HCl (Bupropion Hcl Xl 150 Mg Tab.Er.24h) 150 mg PO BEDTIME [facility] Last Admin: 03/08/25 22:23 Dose: 150 mg Calcium Carbonate (Calcium Carbonate 750 Mg Tab.Chew) 750 mg PO Q4H PRN PRN Reason: Heartburn Ceftriaxone Sodium (Ceftriaxone Sodium 1 Gm Vial) 1 gm IVPUSH Q24H [facility] Last Admin: 03/08/25 22:24 Dose: 1 gm Dextrose (Dextrose 50 % 25 Gm/50 Ml Syringe) 25 gm IVPUSH Q15M PRN; Protocol PRN Reason: per Hypoglycemia Standing Ord. Empagliflozin (Empagliflozin 25 Mg Tablet) 25 mg PO DAILY [facility] Last Admin: 03/09/25 08:38 Dose: 25 mg Fenofibrate (Fenofibrate,Micronized 134 Mg Capsule) 134 mg PO DAILY [facility] Last Admin: 03/09/25 08:38 Dose: 134 mg Fluticasone Propionate (Fluticasone Propionate Nasal 16 Gm [place]) 2 spray NOSTRIL-B DAILY PRN PRN Reason: Allergy Symptoms Furosemide (Furosemide 40 Mg/4 Ml Vial) 40 mg IVPUSH BID@0900,1800 [facility]; Protocol Last Admin: 03/09/25 08:37 Dose: 40 mg Gabapentin (Gabapentin 400 Mg Capsule) 400 mg PO BID [facility] Last Admin: 03/09/25 08:39 Dose: 400 mg Glucose (Glucose Gel 15 Gm Gel..Gram.) 15 gm PO Q15M PRN; Protocol PRN Reason: per Hypoglycemia Standing Ord. Azithromycin 500 mg/ Sodium (Chloride) 250 mls @ 125 mls/hr IV Q24H [facility] Last Infusion: 03/09/25 01:28 Dose: Infused Insulin Human Lispro (Insulin Lispro 100 Unit/Ml 3 Ml Vial) 0 unit SUBCUT QIDACHS [facility]; Protocol Last Admin: 03/09/25 11:57 Dose: Not Given Losartan Potassium (Losartan Potassium 50 Mg Tablet) 50 mg PO BID [facility]; Protocol Last Admin: 03/09/25 08:39 Dose: 50 mg Magnesium Hydroxide (Milk Of Magnesia 30 Ml Oral.Susp) 30 ml PO DAILY PRN PRN Reason: Constipation Metoprolol Tartrate (Metoprolol Tartrate 50 Mg Tablet) 50 mg PO BID [facility]; Protocol Last Admin: 03/09/25 08:38 Dose: 50 mg Sodium Chloride (0.9 % Sodium Chloride Flush 3 Ml Syringe) 3 ml IVFLUSH QSHIFT [facility] Last Admin: 03/09/25 08:39 Dose: 3 ml Venlafaxine HCl (Venlafaxine Hcl Er 150 Mg Cap.Er.24h) 150 mg PO DAILY@0800 [facility] Last Admin: 03/09/25 08:39 Dose: 150 mg Venlafaxine HCl (Venlafaxine Hcl Er 75 Mg Cap.Er.24h) 75 mg PO DAILY@2000 [facility] Last Admin: 03/08/25 22:24 Dose: 75 mg Vitamin D (Cholecalciferol (Vitamin D3) 25 Mcg Tablet) 50 mcg PO DAILY [facility] Last Admin: 03/09/25 08:38 Dose: 50 mcg Home Medications ?Medication ?Instructions ?Recorded ?Confirmed ?Last Taken ?Type albuterol sulfate 90 mcg/actuation 2 puff inhalation Q4-6H PRN 03/08/25 03/08/25 Unknown History aerosol inhaler Shortness Of Breath Or Wheezing alogliptin 25 mg tablet 25 mg PO DAILY 03/08/25 Unknown History amiodarone 200 mg tablet 200 mg PO DAILY 03/08/25 Unknown History atorvastatin 20 mg tablet 20 mg PO BEDTIME 03/08/25 03/08/25 Unknown History bupropion HCl 150 mg tablet,12 hr 150 mg PO DAILY 03/08/25 03/08/25 Unknown History sustained-release cetirizine 10 mg tablet 10 mg PO DAILY 03/08/25 Unknown History cholecalciferol (vitamin D3) 50 50 mcg PO DAILY 03/08/25 03/08/25 Unknown History mcg (2,000 unit) capsule (Vitamin D3) doxazosin 8 mg tablet 8 mg PO BEDTIME 03/08/25 Unknown History empagliflozin 25 mg tablet 25 mg PO DAILY 03/08/25 03/08/25 Unknown History (Jardiance) fenofibrate micronized 130 mg 130 mg PO DAILY 03/08/25 03/08/25 Unknown History capsule fluticasone propionate 50 2 spray intranasal DAILY PRN 03/08/25 03/08/25 Unknown History mcg/actuation nasal Allergy Symptoms spray,suspension gabapentin 400 mg capsule 400 mg PO BID 03/08/25 03/08/25 Unknown History losartan 50 mg tablet 50 mg PO BID 03/08/25 03/08/25 Unknown History metformin 500 mg tablet,extended 1,000 mg PO DAILY 03/08/25 03/08/25 Unknown History release 24 hr metoprolol tartrate 50 mg tablet 50 mg PO BID 03/08/25 03/08/25 Unknown History pantoprazole 40 mg tablet,delayed 40 mg PO BID 03/08/25 Unknown History release semaglutide 1 mg/dose (4 mg/3 mL) 1 mg subcut FR 03/08/25 03/08/25 03/07/25 History subcutaneous pen injector (Ozempic) spironolactone 25 mg tablet 25 mg PO BID 03/08/25 Unknown History tadalafil 5 mg tablet 5 mg PO DAILY 03/08/25 03/08/25 Unknown History tamsulosin 0.4 mg capsule 0.4 mg PO DAILY 03/08/25 Unknown History venlafaxine 75 mg capsule,extended 75 mg PO DAILY@2000 03/08/25 03/08/25 Unknown History release 24 hr venlafaxine 75 mg capsule,extended 150 mg PO DAILY@0803/08/25 03/08/25 Unknown History release 24 hr Physical Exam Vital Signs: Vital Signs: Last Vital Signs Temp 96.8 F 03/09/25 11:05 Pulse 74 03/09/25 11:05 Resp 20 03/09/25 11:05 BP 137/82 03/09/25 11:05 Pulse Ox 98 03/09/25 11:05 O2 Del Method Room Air 03/09/25 11:05 BMI result Body Mass Index 27.7 GENERAL APPEARANCE: in no acute distress, pleasant. Hard of hearing. NECK: no carotid bruit, no jugular venous distention. Positive hepatojugular reflux. SKIN: no suspicious lesions, warm and dry. HEART: Soft systolic murmur at the apex, irregular rate and rhythm. LUNGS: clear to auscultation bilaterally. ABDOMEN: soft, nontender. EXTREMITIES: no edema. PERIPHERAL PULSES: equal. NEUROLOGIC: No gross deficits, AAO X 3 Objective Labs and Meds 03/09/25 06:27 03/09/25 06:27 Lab results: Laboratory Results - last 24 hr 03/08/25 03/08/25 03/08/25 15:16 21:21 21:49 WBC 7.8 RBC 5.07 Hgb 15.3 Hct 45.0 MCV 88.8 MCH 30.2 MCHC 34.0 RDW 14.6 Plt Count 229 MPV 12.1 Immature Gran % (Auto) 0.4 Neut % (Auto) 69.8 Lymph % (Auto) 20.8 Richardson % (Auto) 7.5 Eos % (Auto) 1.0 Baso % (Auto) 0.5 Lymph # (Auto) 1.6 Richardson # (Auto) 0.6 Eos # (Auto) 0.1 Baso # (Auto) 0.0 Abs Immat Gran (auto) 0.03 Absolute Neuts (auto) 5.5 Absolute Nucleated RBC 0.000 Nucleated RBC % (auto) 0.0 Sodium 139 Potassium 3.5 D Chloride 101 Carbon Dioxide 29 Anion Gap 13 BUN 13 Creatinine 1.03 Estim Creat Clear Calc 70.0 Estimated GFR > 60 POC Glucose 105 Random Glucose 132 H Fasting Glucose 133 H Calcium 9.9 Magnesium 1.9 Total Bilirubin 1.3 H AST 20 ALT 11 Alkaline Phosphatase 59 Troponin I High Sens 4.7 5.5 C-Reactive Protein 0.89 H B-Natriuretic Peptide 1176 H Total Protein 6.6 Albumin 4.[address] See Note Adenovirus (Rapid PCR) Not Detected B.pert (TEM-PCR) Not Detected B.parapertussis DNA PCR Not Detected C. pneumoniae DNA (PCR) Not Detected Coronavirus OC43 (PCR) Not Detected Coronavirus HKU1 (PCR) Not Detected Coronavirus 229E (PCR) Not Detected Coronavirus NL63 (PCR) Not Detected Human Metapneumovir PCR Not Detected Influenza A (RT-PCR) Not Detected Influenza A (H1) PCR Not Detected Influ A (H1/09) PCR Not Detected Influenza A (H3) PCR Not Detected Influenza B (RT-PCR) Not Detected M. pneumoniae (PCR) Not Detected Parainfluenza 1 (PCR) Not Detected Parainfluenza 2 (PCR) Not Detected Parainfluenza 3 (PCR) Not Detected Parainfluenza 4 (PCR) Not Detected RSV (PCR) Not Detected Entero/Rhino (PCR) Not Detected SARS-CoV-2 RNA (RT-PCR) Not Detected 03/09/25 03/09/25 03/09/25 06:27 06:55 10:48 WBC 7.2 RBC 4.91 Hgb 14.7 Hct 44.6 MCV 90.8 MCH 29.9 MCHC 33.0 RDW 14.5 Plt Count 193 MPV 12.7 H Immature Gran % (Auto) 0.4 Neut % (Auto) 51.1 Lymph % (Auto) 34.7 Richardson % (Auto) 10.7 Eos % (Auto) 2.1 Baso % (Auto) 1.0 Lymph # (Auto) 2.5 Richardson # (Auto) 0.8 Eos # (Auto) 0.2 Baso # (Auto) 0.1 Abs Immat Gran (auto) 0.03 Absolute Neuts (auto) 3.7 Absolute Nucleated RBC 0.000 Nucleated RBC % (auto) 0.0 Sodium 142 Potassium 3.2 L Chloride 104 Carbon Dioxide 27 Anion Gap 14 BUN 15 Creatinine 0.94 Estim Creat Clear Calc 76.7 Estimated GFR > 60 POC Glucose 100 86 Random Glucose 89 Fasting Glucose Calcium 9.5 Magnesium 1.9 Total Bilirubin AST ALT Alkaline Phosphatase Troponin I High Sens C-Reactive Protein B-Natriuretic Peptide Total Protein Albumin Procalcitonin Respiratory Panel Street Adenovirus (Rapid PCR) B.pert (TEM-PCR) B.parapertussis DNA PCR C. pneumoniae DNA (PCR) Coronavirus OC43 (PCR) Coronavirus HKU1 (PCR) Coronavirus 229E (PCR) Coronavirus NL63 (PCR) Human Metapneumovir PCR Influenza A (RT-PCR) Influenza A (H1) PCR Influ A (H1/09) PCR Influenza A (H3) PCR Influenza B (RT-PCR) M. pneumoniae (PCR) Parainfluenza 1 (PCR) Parainfluenza 2 (PCR) Parainfluenza 3 (PCR) Parainfluenza 4 (PCR) RSV (PCR) Entero/Rhino (PCR) SARS-CoV-2 RNA (RT-PCR) Assessment and Plan (1) Acute exacerbation of CHF (congestive heart failure): Qualifiers: Heart failure type: right-sided Qualified Code(s): I50.813 - Acute on chronic right heart failure Status: Acute (2) Essential hypertension: Status: Acute (3) A-fib: Qualifiers: Atrial fibrillation type: paroxysmal Qualified Code(s): I48.0 - Paroxysmal atrial fibrillation Status: Acute Plan Pleasant 74 year gentleman who is from [place] and reports history of coronary disease in the past with stents who was visiting his son and developed atrial fibrillation last week with congestive heart failure and was discharged from the emergency department with Eliquis and diuretics. He is coming back with fatigue, shortness of breath and dull chest ache. His troponin is negative. EKGs showing atrial fibrillation 81 beats per minute, rightward axis, right bundle-branch block, can not rule out inferior infarct, QTC 511 with QRS duration of 164 milliseconds. He has hepatojugular reflux. Continue diuretics today. Agree with continuing Eliquis. Check with pharmacy tomorrow about confirming his medications. 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 Presentation is mostly due to atrial fibrillation with fatigue, shortness of breath and dull left-sided chest ache. No dynamic EKG changes to suggest acute coronary syndrome and I think we should cardiovert him. Keep NPO for potential cardioversion tomorrow. Thank you for allowing me to participate in the care of your patient. Please feel free to contact me if you have any questions. Procedures Date of Service Date of Service: 03/09/25
--- NOTE | 2025-03-09 12:11 | P.PNIM_ITS ---
Subjective Subjective Date of Service: 03/09/25 Interval History: Seen and examined this morning Follow-up for AFib, CHF Has urinated several times since starting Lasix, breathing improving, no chest pain Review of Systems Review of Systems: Yes all other systems are reviewed and are negative Constitutional Constitutional: Denies chills and Denies fever(s) Cardiovascular Cardiovascular: Denies chest pain, Denies palpitations and Reports dyspnea Respiratory Respiratory: Denies cough and Reports dyspnea Endocrine Endocrine: Denies palpitations Physical Exam 2 Vital Signs: Vital Signs: Last Vital Signs Temp 96.8 F 03/09/25 11:05 Pulse 74 03/09/25 11:05 Resp 20 03/09/25 11:05 BP 137/82 03/09/25 11:05 Pulse Ox 98 03/09/25 11:05 O2 Del Method Room Air 03/09/25 11:05 BMI result Body Mass Index 27.7 Const: General: cooperative, comfortable, alert and awake Nutritional Appearance: average body habitus Orientation/consciousness: patient oriented x3 Resp: Effort & Inspection: normal respiratory effort, able to speak in complete sentences, no respiratory distress and no use of accessory muscles A uscultation: clear to auscultation bilaterally Cardio: Rate: regular rate Rhythm: abnormal rhythm irregularly irregular GI: Inspection: No distended Palpation (GI): Soft to palpation Neuro: General: patient oriented x3 Extrem: Other: trace edema b/l Objective Data Active Medications Acetaminophen (Acetaminophen 325 Mg Tablet) 975 mg PO Q6H PRN PRN Reason: Pain, Mild 1-3,fever,headache Last Admin: 03/08/25 22:22 Dose: 975 mg Documented By: DARLYN Albuterol/Ipratropium (Albuterol/Iprat 2.5/0.5mg 3 Ml Ampul.Neb) 3 ml INHALE Q3H PRN PRN Reason: wheezing Apixaban (Apixaban 5 Mg Tablet) 5 mg PO BID [facility] Last Admin: 03/09/25 08:39 Dose: 5 mg Documented By: JONELLE Atorvastatin Calcium (Atorvastatin Calcium 20 Mg Tablet) 20 mg PO BEDTIME [facility] Last Admin: 03/08/25 22:23 Dose: 20 mg Documented By: DARLYN Bupropion HCl (Bupropion Hcl Xl 150 Mg Tab.Er.24h) 150 mg PO BEDTIME [facility] Last Admin: 03/08/25 22:23 Dose: 150 mg Documented By: DARLYN Calcium Carbonate (Calcium Carbonate 750 Mg Tab.Chew) 750 mg PO Q4H PRN PRN Reason: Heartburn Ceftriaxone Sodium (Ceftriaxone Sodium 1 Gm Vial) 1 gm IVPUSH Q24H [facility] Last Admin: 03/08/25 22:24 Dose: 1 gm Documented By: DARLYN Dextrose (Dextrose 50 % 25 Gm/50 Ml Syringe) 25 gm IVPUSH Q15M PRN; Protocol PRN Reason: per Hypoglycemia Standing Ord. Empagliflozin (Empagliflozin 25 Mg Tablet) 25 mg PO DAILY [facility] Last Admin: 03/09/25 08:38 Dose: 25 mg Documented By: JONELLE Fenofibrate (Fenofibrate,Micronized 134 Mg Capsule) 134 mg PO DAILY [facility] Last Admin: 03/09/25 08:38 Dose: 134 mg Documented By: JONELLE Fluticasone Propionate (Fluticasone Propionate Nasal 16 Gm [place]) 2 spray NOSTRIL-B DAILY PRN PRN Reason: Allergy Symptoms Furosemide (Furosemide 40 Mg/4 Ml Vial) 40 mg IVPUSH BID@0900,1800 [facility]; Protocol Last Admin: 03/09/25 08:37 Dose: 40 mg Documented By: JONELLE Gabapentin (Gabapentin 400 Mg Capsule) 400 mg PO BID [facility] Last Admin: 03/09/25 08:39 Dose: 400 mg Documented By: JONELLE Glucose (Glucose Gel 15 Gm Gel..Gram.) 15 gm PO Q15M PRN; Protocol PRN Reason: per Hypoglycemia Standing Ord. Azithromycin 500 mg/ Sodium (Chloride) 250 mls @ 125 mls/hr IV Q24H [facility] Last Infusion: 03/09/25 01:28 Dose: Infused Documented By: KEMAL Insulin Human Lispro (Insulin Lispro 100 Unit/Ml 3 Ml Vial) 0 unit SUBCUT QIDACHS [facility]; Protocol Last Admin: 03/09/25 11:57 Dose: Not Given Documented By: JONELLE Non-Admin Reason: No Insulin Coverage Losartan Potassium (Losartan Potassium 50 Mg Tablet) 50 mg PO BID [facility]; Protocol Last Admin: 03/09/25 08:39 Dose: 50 mg Documented By: JONELLE Magnesium Hydroxide (Milk Of Magnesia 30 Ml Oral.Susp) 30 ml PO DAILY PRN PRN Reason: Constipation Metoprolol Tartrate (Metoprolol Tartrate 50 Mg Tablet) 50 mg PO BID [facility]; Protocol Last Admin: 03/09/25 08:38 Dose: 50 mg Documented By: JONELLE Sodium Chloride (0.9 % Sodium Chloride Flush 3 Ml Syringe) 3 ml IVFLUSH QSHIFT [facility] Last Admin: 03/09/25 08:39 Dose: 3 ml Documented By: JONELLE Venlafaxine HCl (Venlafaxine Hcl Er 150 Mg Cap.Er.24h) 150 mg PO DAILY@0800 [facility] Last Admin: 03/09/25 08:39 Dose: 150 mg Documented By: JONELLE Venlafaxine HCl (Venlafaxine Hcl Er 75 Mg Cap.Er.24h) 75 mg PO DAILY@2000 [facility] Last Admin: 03/08/25 22:24 Dose: 75 mg Documented By: DARLYN Vitamin D (Cholecalciferol (Vitamin D3) 25 Mcg Tablet) 50 mcg PO DAILY [facility] Last Admin: 03/09/25 08:38 Dose: 50 mcg Documented By: JONELLE Labs 03/09/25 06:27 03/09/25 06:27 Labs: Laboratory Results - last 24 hr 03/08/25 03/08/25 03/08/25 15:16 21:21 21:49 MCV 88.8 MCH 30.2 MCHC 34.0 RDW 14.6 Plt Count 229 MPV 12.1 Immature Gran % (Auto) 0.4 Neut % (Auto) 69.8 Lymph % (Auto) 20.8 [place] % (Auto) 7.5 Eos % (Auto) 1.0 Baso % (Auto) 0.5 Lymph # (Auto) 1.6 [place] # (Auto) 0.6 Eos # (Auto) 0.1 Baso # (Auto) 0.0 Abs Immat Gran (auto) 0.03 Absolute Neuts (auto) 5.5 Absolute Nucleated RBC 0.000 Nucleated RBC % (auto) 0.0 Anion Gap 13 Estim Creat Clear Calc 70.0 Estimated GFR > 60 POC Glucose 105 Random Glucose 132 H Fasting Glucose 133 H Calcium 9.9 Magnesium 1.9 Total Bilirubin 1.3 H AST 20 ALT 11 Alkaline Phosphatase 59 C-Reactive Protein 0.89 H B-Natriuretic Peptide 1176 H Total Protein 6.6 Albumin 4.2 [address] See Note Adenovirus (Rapid PCR) Not Detected B.pert (TEM-PCR) Not Detected B.parapertussis DNA PCR Not Detected C. pneumoniae DNA (PCR) Not Detected Coronavirus OC43 (PCR) Not Detected Coronavirus HKU1 (PCR) Not Detected Coronavirus 229E (PCR) Not Detected Coronavirus NL63 (PCR) Not Detected Human Metapneumovir PCR Not Detected Influenza A (RT-PCR) Not Detected Influenza A (H1) PCR Not Detected Influ A (H1/09) PCR Not Detected Influenza A (H3) PCR Not Detected Influenza B (RT-PCR) Not Detected M. pneumoniae (PCR) Not Detected Parainfluenza 1 (PCR) Not Detected Parainfluenza 2 (PCR) Not Detected Parainfluenza 3 (PCR) Not Detected Parainfluenza 4 (PCR) Not Detected RSV (PCR) Not Detected Entero/Rhino (PCR) Not Detected SARS-CoV-2 RNA (RT-PCR) Not Detected 03/09/25 03/09/25 03/09/25 06:27 06:55 10:48 MCV 90.8 MCH 29.9 MCHC 33.0 RDW 14.5 Plt Count 193 MPV 12.7 H Immature Gran % (Auto) 0.4 Neut % (Auto) 51.1 Lymph % (Auto) 34.7 [place] % (Auto) 10.7 Eos % (Auto) 2.1 Baso % (Auto) 1.0 Lymph # (Auto) 2.5 [place] # (Auto) 0.8 Eos # (Auto) 0.2 Baso # (Auto) 0.1 Abs Immat Gran (auto) 0.03 Absolute Neuts (auto) 3.7 Absolute Nucleated RBC 0.000 Nucleated RBC % (auto) 0.0 Anion Gap 14 Estim Creat Clear Calc 76.7 Estimated GFR > 60 POC Glucose 100 86 Random Glucose 89 Fasting Glucose Calcium 9.5 Magnesium 1.9 Total Bilirubin AST ALT Alkaline Phosphatase C-Reactive Protein B-Natriuretic Peptide Total Protein Albumin Procalcitonin Respiratory Panel Street Adenovirus (Rapid PCR) B.pert (TEM-PCR) B.parapertussis DNA PCR C. pneumoniae DNA (PCR) Coronavirus OC43 (PCR) Coronavirus HKU1 (PCR) Coronavirus 229E (PCR) Coronavirus NL63 (PCR) Human Metapneumovir PCR Influenza A (RT-PCR) Influenza A (H1) PCR Influ A (H1/) PCR Influenza A (H3) PCR Influenza B (RT-PCR) M. pneumoniae (PCR) Parainfluenza 1 (PCR) Parainfluenza 2 (PCR) Parainfluenza 3 (PCR) Parainfluenza 4 (PCR) RSV (PCR) Entero/Rhino (PCR) SARS-CoV-2 RNA (RT-PCR) Assessment and Plan (1) Acute exacerbation of CHF (congestive heart failure): Status: Acute Plan This is a 74 y/o male visiting from [place] with a history of atrial fibrillation, CAD status post stent placement, hypertension, diabetes, sarcoidosis, brain mass who was initially seen in the emergency department on March 02 with shortness of breath and chest pain, at that time he was started on Eliquis as he was noted to be in AFib and was discharged with Lasix as well he returned to the emergency room March 08 with ongoing symptoms and was admitted for acute CHF. Right upper lobe consolidation/pneumonia no sepsis RPP negative, procalcitonin low CTA from 03/03 showing right side consolidation and cxr showing persistent areas of possible infection will continue IV ceftriaxone and azithromycin Acute CHF, unspecified likely due to underlying afib/uncontrolled HTN Continue IV diuresis with IV lasix- follow Is&Os Continue spironolactone, metoprolol, losartan, jardiance echo pending cardiology following Atrial fibrillation, paroxysmal Currently rate controlled Have not been able to confirm if patient is still taking amiodarone - pharmacy to call in a.m. Continue metoprolol and Eliquis Seen by Cardiology, plan for cardioversion in a.m.. NPO at midnight CAD s/p stenting. Continue aspirin and statin. Essential hypertension. Continue metoprolol, losartan spironolactone not confirmed Hyperlipidemia. Continue statin, lofibra Type 2 diabetes mellitus. Hold Metformin, Ozempic SSI, ADA diet Mood Continue baseline medication DVT prophylaxis: Eliquis Code status: Full Patient requires ongoing inpatient stay for management of pneumonia associated with pulmonary edema treatment with IV antibiotics, atrial fibrillation requiring cardioversion, IV diuresis and evaluation by subspecialty. Quality Stroke Does the patient have a stroke diagnosis?: No VTE Prior VTE?: No VTE Risk Level:: Medical - moderate - high VTE Device Contraindication: Treatment Not Indicated VTE Drug Contraindication: N/A - Med Ordered
[2025-03-09] MEDS: Potassium Chloride ER 20 MEQ TAB.ER.PRT 40 MEQ PO ×2 (14:29→21:17)
[2025-03-09 16:21] LABS: Glucose, Whole Blood 95 mg/dL (60-115)
[2025-03-09 20:38] LABS: Glucose, Whole Blood 113 mg/dL (60-115)
[2025-03-09] MEDS: buPROPion HCl XL 150 MG TAB.ER.24H PO (21:17)
[2025-03-09] MEDS: Venlafaxine HCl ER 75 MG CAP.ER.24H PO (21:18)
[2025-03-10] VITALS (9 sets, daily range): BP systolic 138–159; BP diastolic 52–113; PULSE 57–93; RESP 16–20; TEMP 36.2–36.8; O2SAT 94–98
[2025-03-10] MEDS: Milk of Magnesia 30 ML ORAL.SUSP PO (00:25)
--- NOTE | 2025-03-10 07:00 | CA_ITS ---
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 Pulmonary edema Study Quality: Fair ECG Rhythm: Atrial Fibrillation Conclusions: - The left ventricular systolic function is mildly decreased. The calculated ejection fraction is 45% by biplane method. - The basal inferior and mid inferior segments are akinetic. - There is mild to moderate mitral valve regurgitation. Findings Left Ventricle Normal left ventricular cavity size. The left ventricular systolic function is mildly decreased. The calculated ejection fraction is 45% by biplane method. There is evidence of regional wall motion abnormalities. Diastolic function is indeterminate on the basis of available data. [id number] concentric left ventricular hypertrophy. Wall Motion Rest Echo Findings The basal inferior and mid inferior segments are akinetic. Right Ventricle Normal right ventricular cavity size. There is mildly decreased right ventricular systolic function. Atria The left atrium is mildly dilated. The right atrium is normal in size. Aortic Valve There is a normal trileaflet aortic valve. There is no aortic valve stenosis. There is no aortic valve regurgitation. Mitral Valve There is mild mitral annular calcification. There is mild to moderate mitral valve regurgitation. There is no mitral valve stenosis. Pulmonic Valve The pulmonic valve is likely normal. Tricuspid Valve There is mild tricuspid valve regurgitation. Mild pulmonary hypertension is present. Great Vessels The asc aorta is normal in size. Venous The inferior vena cava is normal in size and collapses greater than 50% with inspiration. Pericardium/Pleural There is no evidence of pericardial effusion. Prior Study Comparison No prior study available for comparison. Measurements 2D Linear Measurements IVSd: 1.43 0.6-0.9/0.6-1.0 cm LVIDd: 4.73 3.9-5.3/4.2-5.9 cm LVIDd Index: 2.16 2.4-3.2/2.2-3.1 cm/m2 LVIDs: 3.25 2.0-3.6 cm LVPWd: 1.41 0.7-1.1 cm Ao Root: 3.50 2.1-3.5 cm LA Diam: 4.60 2.7-3.8/3.0-4.0 cm LAIDs Index: 2.10 1.5-2.3 cm/m2 LV Mass: 341.09 67-162/88-224 g LV Mass Index: 155.75 43-95/49-115 g/m2 LVOT Diam: 2.20 3.0+(-)1.3 cm 2D Systolic Function EF 4C: 43.00 >55% EF 2C: 48.80 >55% EF BiP: 45.10 >55% Mitral Valve MV Pk E: 1.54 MV Decel Time: 177.00 E'Lateral: 13.40 E'Medial: 5.55 E/E' Med: 27.70 E/E' Lat: 11.50 PHT: 52.00 MVA PHT: 4.23 Decel Stevens: 8.73 Aortic Valve AoV Pk Tristan: 0.87 AoV Mn Tristan: 0.60 AoV VTI: 0.15 AoV Pk Grad: 3.00 Aov Mn Grad: 2.00 LIEN Cont.VTI: 3.13 LVOT LVOT Pk Tristan: 0.63 LVOT Mn Tristan: 0.44 LVOT VTI: 0.13 LVOT Pk Grad: 2.00 LVOT Mn Grad: 1.00 LVOT Diam: 2.20 LVOT Area: 3.80 Diastolic Function MV Pk E: 1.54 E'Medial: 5.55 E/E' Med: 27.70 E' Laterial: 13.40 E/E' Lat: 11.50 Right Ventricle TAPSE (mm): 15.00 TVS' Tristan: 9.00 Tricuspid Valve TR Pk Tristan: 3.18 TR Pk Grad: 40.00 RA Press: 3.00 RVSP: 43.00 Great Vessels Aorta Ao Root-2D: 3.50 2.0-3.7 cm Ao Asc: 3.60 2.1-3.4 cm Pulmonary Valve PV Pk Tristan: 0.68 Peak PV Grad: 2.00 Updated in Other Vendor System with Status of Final James Doan MD electronically signed on 03/10/2025 11:24:28 AM with status of Final
[2025-03-10 07:28] LABS: B Type Natriuretic Peptide 1557 pg/mL (<100)
[2025-03-10 07:48] LABS: Glucose, Whole Blood 99 mg/dL (60-115)
[2025-03-10] MEDS: Furosemide 40 MG/4 ML VIAL IVPUSH ×2 (09:01→17:27)
[2025-03-10] MEDS: Venlafaxine HCl ER 150 MG CAP.ER.24H PO (09:01)
[2025-03-10] MEDS: 0.9 % Sodium Chloride Flush 3 ML SYRINGE IVFLUSH ×3 (09:01→21:25)
--- NOTE | 2025-03-10 10:26 | PM.PNCARD ---
Subjective Subjective Date of Service: 03/10/25 Interval history: Patient states he feels okay. According to him, he has had atrial fibrillation couple of years ago although somewhat vague details. It seems that he was cardioverted twice but he did not respond but then he converted back to sinus by himself. He was not maintained on anticoagulation. Currently, back in atrial fibrillation of unknown duration and hence admitted. Review of Systems Review of Systems Yes all other systems are reviewed and are negative Constitutional: Reports as per HPI and Reports no additional constitutional complaints Eyes: Reports as per HPI and Denies no additional eye complaints Denies system reviewed and no additional complaints, except as documented and Reports as per HPI Cardiovascular: Reports as per HPI, Reports no additional cardiovascular complaints, Denies acrocyanosis, Denies cool extremities, Denies chest pain, Denies leg edema, Denies lightheadedness, Denies palpitations and Denies dyspnea Respiratory: Reports as per HPI, Denies no additional respiratory complaints and Denies dyspnea Gastrointestinal: Reports as per HPI and Denies no additional gastrointestinal complaints Genitourinary: Reports no additional male genitourinary complaints and Reports as per HPI Musculoskeletal: Reports no additional musculoskeletal complaints and Reports as per HPI Skin/Breast: Reports system reviewed and no additional complaints, except as docu Reports system reviewed and no additional complaints, except as documented and Reports as per HPI Psychiatric: Reports no additional psychiatric complaints and Reports as per HPI Endocrine: Reports no additional endocrine complaints, Reports as per HPI and Denies palpitations Hematologic/Lymphatic: Reports no additional hematologic/lymphatic complaints and Reports as per HPI Allergic/Immunologic: Reports no additional allergic/immunologic complaints and Reports as per HPI Physical Exam Vital Signs: Last Vital Signs Temp 97.8 F 03/10/25 08:00 Pulse 86 03/10/25 08:00 Resp 20 03/10/25 08:00 BP 142/90 H 03/10/25 08:00 Pulse Ox 95 03/10/25 08:00 O2 Del Method Room Air 03/10/25 08:00 BMI result Body Mass Index 27.7 Const General: comfortable and no acute distress Orientation/consciousness: patient oriented x3 HEENT Other: Unremarkable Head: Yes normal to inspection Neck Neck: Yes normal visual inspection Chest Chest palpation & inspection: normal inspection of the chest Resp Auscultation: clear to auscultation bilaterally Cardio Palpation: normal PMI Heart sounds: S1 normal heart sound present, S2 normal heart sound present, no gallops, no murmurs and no rubs GI Palpation (GI): Soft to palpation Back/Spine/Pelvis Other: unremarkable Skin General skin exam: no rashes or lesions noted Neuro General: patient oriented x3 Extrem General: Yes normal to inspection Psych Mental Status: mental status grossly normal Objective Labs and Meds 03/09/25 06:27 03/09/25 06:27 Lab results: Laboratory Results - last 24 hr 03/08/25 03/09/25 03/09/25 21:21 10:48 16:14 Hold Purple Top POC Glucose 86 95 B-Natriuretic Peptide Respiratory Panel Street See Note Adenovirus (Rapid PCR) Not Detected B.pert (TEM-PCR) Not Detected B.parapertussis DNA PCR Not Detected C. pneumoniae DNA (PCR) Not Detected Coronavirus OC43 (PCR) Not Detected Coronavirus HKU1 (PCR) Not Detected Coronavirus 229E (PCR) Not Detected Coronavirus NL63 (PCR) Not Detected Human Metapneumovir PCR Not Detected Influenza A (RT-PCR) Not Detected Influenza A (H1) PCR Not Detected Influ A (H1/09) PCR Not Detected Influenza A (H3) PCR Not Detected Influenza B (RT-PCR) Not Detected M. pneumoniae (PCR) Not Detected Parainfluenza 1 (PCR) Not Detected Parainfluenza 2 (PCR) Not Detected Parainfluenza 3 (PCR) Not Detected Parainfluenza 4 (PCR) Not Detected RSV (PCR) Not Detected Entero/Rhino (PCR) Not Detected SARS-CoV-2 RNA (RT-PCR) Not Detected 03/09/25 03/10/25 03/10/25 20:30 06:44 07:42 Hold Purple Top SEE NOTE POC Glucose 113 99 B-Natriuretic Peptide [address] Adenovirus (Rapid PCR) B.pert (TEM-PCR) B.parapertussis DNA PCR C. pneumoniae DNA (PCR) Coronavirus OC43 (PCR) Coronavirus HKU1 (PCR) Coronavirus 229E (PCR) Coronavirus NL63 (PCR) Human Metapneumovir PCR Influenza A (RT-PCR) Influenza A (H1) PCR Influ A (H1/09) PCR Influenza A (H3) PCR Influenza B (RT-PCR) M. pneumoniae (PCR) Parainfluenza 1 (PCR) Parainfluenza 2 (PCR) Parainfluenza 3 (PCR) Parainfluenza 4 (PCR) RSV (PCR) Entero/Rhino (PCR) SARS-CoV-2 RNA (RT-PCR) Progress Note: A&P Assessment and plan (1) Acute exacerbation of CHF (congestive heart failure): Status: Acute (2) A-fib: Status: Acute Plan On telemetry, rate controlled atrial fibrillation. Home medications listed as amiodarone 200 mg daily. Currently on metoprolol/Eliquis. Discussed with the OR-earliest available appointment for MICKEY/cardioversion tomorrow. Patient would like to get this done in this hospitalization. Hence we will schedule for tomorrow. Keep NPO past midnight. Hold morning beta-blockers but give Eliquis. On empiric diuretics. Transthoracic echocardiogram is pending. Time Spent With Patient Time: Total time managing care of this patient today ____ minutes. Progress Note: Quality Stroke Does the patient have a stroke diagnosis?: No Procedures Date of Service Date of Service: 03/10/25
--- NOTE | 2025-03-10 11:10 | P.PNIM_ITS ---
Subjective Subjective Date of Service: 03/10/25 Interval History: Seen and examined this morning Follow-up for AFib, CHF Has urinated several times since starting Lasix, breathing improving, no chest pain Review of Systems Review of Systems: Yes all other systems are reviewed and are negative Constitutional Constitutional: Denies chills and Denies fever(s) Cardiovascular Cardiovascular: Denies chest pain, Denies palpitations and Reports dyspnea Respiratory Respiratory: Denies cough and Reports dyspnea Endocrine Endocrine: Denies palpitations Physical Exam 2 Vital Signs: Vital Signs: Last Vital Signs Temp 97.8 F 03/10/25 08:00 Pulse 86 03/10/25 08:00 Resp 20 03/10/25 08:00 BP 142/90 H 03/10/25 08:00 Pulse Ox 95 03/10/25 08:00 O2 Del Method Room Air 03/10/25 08:00 BMI result Body Mass Index 27.7 Appearing in no acute distress lung sounds are clear to auscultation heart regular rate rhythm, clear S1, S2 positive bowel sounds, abdomen is soft, nontender neuro patient is alert x3, no focal deficits Objective Data Active Medications Acetaminophen (Acetaminophen 325 Mg Tablet) 975 mg PO Q6H PRN PRN Reason: Pain, Mild 1-3,fever,headache Last Admin: 03/10/25 00:25 Dose: 975 mg Documented By: FELIPA Albuterol/Ipratropium (Albuterol/Iprat 2.5/0.5mg 3 Ml Ampul.Neb) 3 ml INHALE Q3H PRN PRN Reason: wheezing Apixaban (Apixaban 5 Mg Tablet) 5 mg PO BID [facility] [place] Last Admin: 03/10/25 09:01 Dose: 5 mg Documented By: THIAGO Atorvastatin Calcium (Atorvastatin Calcium 20 Mg Tablet) 20 mg PO BEDTIME [facility] [place] Last Admin: 03/09/25 21:19 Dose: 20 mg Documented By: FELIPA Bupropion HCl (Bupropion Hcl Xl 150 Mg Tab.Er.24h) 150 mg PO BEDTIME [facility] [place] Last Admin: 03/09/25 21:17 Dose: 150 mg Documented By: FELIPA Calcium Carbonate (Calcium Carbonate 750 Mg Tab.Chew) 750 mg PO Q4H PRN PRN Reason: Heartburn Ceftriaxone Sodium (Ceftriaxone Sodium 1 Gm Vial) 1 gm IVPUSH Q24H [facility] [place] Last Admin: 03/09/25 21:17 Dose: 1 gm Documented By: FELIPA Dextrose (Dextrose 50 % 25 Gm/50 Ml Syringe) 25 gm IVPUSH Q15M PRN; Protocol PRN Reason: per Hypoglycemia Standing Ord. Empagliflozin (Empagliflozin 25 Mg Tablet) 25 mg PO DAILY [facility] [place] On Hold: 03/09/25 13:48 Last Admin: 03/09/25 08:38 Dose: 25 mg Documented By: JONELLE Fenofibrate (Fenofibrate,Micronized 134 Mg Capsule) 134 mg PO DAILY [facility] [place] Last Admin: 03/10/25 09:01 Dose: 134 mg Documented By: THIAGO Fluticasone Propionate (Fluticasone Propionate Nasal 16 Gm [place]) 2 spray NOSTRIL-B DAILY PRN PRN Reason: Allergy Symptoms Furosemide (Furosemide 40 Mg/4 Ml Vial) 40 mg IVPUSH BID@0900,1800 [facility] [place]; Protocol Last Admin: 03/10/25 09:01 Dose: 40 mg Documented By: THIAGO Gabapentin (Gabapentin 400 Mg Capsule) 400 mg PO BID [facility] [place] Last Admin: 03/10/25 09:01 Dose: 400 mg Documented By: THIAGO Glucose (Glucose Gel 15 Gm Gel..Gram.) 15 gm PO Q15M PRN; Protocol PRN Reason: per Hypoglycemia Standing Ord. Azithromycin 500 mg/ Sodium (Chloride) 250 mls @ 125 mls/hr IV Q24H [facility] [place] Last Infusion: 03/10/25 00:27 Dose: Infused Documented By: FELIPA Insulin Human Lispro (Insulin Lispro 100 Unit/Ml 3 Ml Vial) 0 unit SUBCUT QIDACHS [facility] [place]; Protocol Last Admin: 03/10/25 08:38 Dose: Not Given Documented By: THIAGO Non-Admin Reason: No Insulin Coverage Losartan Potassium (Losartan Potassium 50 Mg Tablet) 50 mg PO BID [facility] [place]; Protocol Last Admin: 03/10/25 09:01 Dose: 50 mg Documented By: THIAGO Magnesium Hydroxide (Milk Of Magnesia 30 Ml Oral.Susp) 30 ml PO DAILY PRN PRN Reason: Constipation Last Admin: 03/10/25 00:25 Dose: 30 ml Documented By: FELIPA Metoprolol Tartrate (Metoprolol Tartrate 50 Mg Tablet) 50 mg PO BID [facility] [place]; Protocol Last Admin: 03/10/25 10:40 Dose: 50 mg Documented By: THIAGO Sodium Chloride (0.9 % Sodium Chloride Flush 3 Ml Syringe) 3 ml IVFLUSH QSHIFT [facility] [place] Last Admin: 03/10/25 09:01 Dose: 3 ml Documented By: THIAGO Venlafaxine HCl (Venlafaxine Hcl Er 150 Mg Cap.Er.24h) 150 mg PO DAILY@0800 [facility] [place] Last Admin: 03/10/25 09:01 Dose: 150 mg Documented By: THIAGO Venlafaxine HCl (Venlafaxine Hcl Er 75 Mg Cap.Er.24h) 75 mg PO DAILY@2000 [facility] [place] Last Admin: 03/09/25 21:18 Dose: 75 mg Documented By: FELIPA Vitamin D (Cholecalciferol (Vitamin D3) 25 Mcg Tablet) 50 mcg PO DAILY [facility] [place] Last Admin: 03/10/25 09:00 Dose: 50 mcg Documented By: THIAGO Labs 03/09/25 06:27 03/09/25 06:27 Labs: Laboratory Results - last 24 hr 03/08/25 03/09/25 03/09/25 21:21 16:14 20:30 Hold Purple Top POC Glucose 95 113 B-Natriuretic Peptide Respiratory Panel Street See Note Adenovirus (Rapid PCR) Not Detected B.pert (TEM-PCR) Not Detected B.parapertussis DNA PCR Not Detected C. pneumoniae DNA (PCR) Not Detected Coronavirus OC43 (PCR) Not Detected Coronavirus HKU1 (PCR) Not Detected Coronavirus 229E (PCR) Not Detected Coronavirus NL63 (PCR) Not Detected Human Metapneumovir PCR Not Detected Influenza A (RT-PCR) Not Detected Influenza A (H1) PCR Not Detected Influ A (H1/09) PCR Not Detected Influenza A (H3) PCR Not Detected Influenza B (RT-PCR) Not Detected M. pneumoniae (PCR) Not Detected Parainfluenza 1 (PCR) Not Detected Parainfluenza 2 (PCR) Not Detected Parainfluenza 3 (PCR) Not Detected Parainfluenza 4 (PCR) Not Detected RSV (PCR) Not Detected Entero/Rhino (PCR) Not Detected SARS-CoV-2 RNA (RT-PCR) Not Detected 03/10/25 03/10/25 06:44 07:42 Hold Purple Top SEE NOTE POC Glucose 99 B-Natriuretic Peptide [address] Adenovirus (Rapid PCR) B.pert (TEM-PCR) B.parapertussis DNA PCR C. pneumoniae DNA (PCR) Coronavirus OC43 (PCR) Coronavirus HKU1 (PCR) Coronavirus 229E (PCR) Coronavirus NL63 (PCR) Human Metapneumovir PCR Influenza A (RT-PCR) Influenza A (H1) PCR Influ A (H1) PCR Influenza A (H3) PCR Influenza B (RT-PCR) M. pneumoniae (PCR) Parainfluenza 1 (PCR) Parainfluenza 2 (PCR) Parainfluenza 3 (PCR) Parainfluenza 4 (PCR) RSV (PCR) Entero/Rhino (PCR) SARS-CoV-2 RNA (RT-PCR) Assessment and Plan (1) Acute exacerbation of CHF (congestive heart failure): Status: Acute Plan 74 y/o male visiting from [place] with a history of atrial fibrillation, CAD status post stent placement, hypertension, diabetes, sarcoidosis, brain mass who was initially seen in the emergency department on March 02 with shortness of breath and chest pain, at that time he was started on Eliquis as he was noted to be in AFib and was discharged with Lasix as well he returned to the emergency room March 08 with ongoing symptoms and was admitted for acute CHF. Right upper lobe consolidation/pneumonia no sepsis RPP negative, procalcitonin low CTA from 03/03 showing right side consolidation and cxr showing persistent areas of possible infection will continue IV ceftriaxone and azithromycin Acute CHF, unspecified likely due to underlying afib/uncontrolled HTN Continue IV diuresis with IV lasix- follow Is&Os Continue metoprolol, losartan, jardiance echo pending cardiology following Atrial fibrillation, paroxysmal Currently rate controlled Have not been able to confirm if patient is still taking amiodarone - pharmacy to call in a.m. Continue metoprolol and Eliquis Seen by Cardiology, plan for cardioversion in a.m.. NPO at midnight CAD s/p stenting. Continue aspirin and statin. Essential hypertension. Continue metoprolol, losartan spironolactone not confirmed Hyperlipidemia. Continue statin, lofibra Type 2 diabetes mellitus. Hold Metformin, Ozempic SSI, ADA diet Mood Continue baseline medication DVT prophylaxis: Lidia Code status: Full Pharmacy For Stone Walker in [facility], I followed up with his pharmacies in [place]. Patient claimed he takes amiodarone 200 mg daily, spironolactone 25 mg bid, tamsulosin 0.4 mg daily, doxazosin 8 mg at bedtime and alogliptin 25 mg daily but pharmacies confirmed they have NO claims for these meds . Quality Stroke Does the patient have a stroke diagnosis?: No VTE Prior VTE?: No VTE Risk Level:: Medical - moderate - high VTE Device Contraindication: Treatment Not Indicated VTE Drug Contraindication: N/A - Med Ordered
[2025-03-10 12:00] LABS: Glucose, Whole Blood 95 mg/dL (60-115)
--- NOTE | 2025-03-10 12:29 | MHC.CM.PN ---
EMR REVIEWED, PT W/CHF/AFIB, PER CARDIO PLAN FOR MICKEY/CARDIOVERSION TOMORROW 03/11, CM WILL CONT TO FOLLOW DC NEEDS.
--- NOTE | 2025-03-10 13:02 | HO.ANESPROP2 ---
Documented by User: Abbey Tobin NP 03/12/25 08:42 HPI - Anesthesia Eval Consult details Narrative: 74 yr old male for transesophageal Echocardiogram, Cardioversion. CHF: No LE edema, on IV lasix, potassium 3.2 03/09/25, replaced, repeat planned a.m. 03/11/25. Echo 03/10/25 EF 45%, mild to moderate LV hypertropy, no aortic stenosis; chest xray trace b/l pleural effusions. Afib: on eliquis. TEA: on CPAP Mild COPD: occasional albuterol use. H/O brain mass: per pt saw neurosurgery in [place], told benign, will have repeat brain MRI; no neuro deficits. No chest pain or SOB today, but no activity since arriving to hospital yesterday 03/08/25. No recent illness. Anesthesia Pre-Procedure Meds Is the patient on any of the following meds?: SGLT2 Inhib (jardiance on hold) PMFSH Active Problems Active Problems: All Active Problems Essential hypertension (Acute) A-fib (Acute) Bilateral pleural effusion (Acute) Pulmonary edema (Acute) Pneumonia (Acute) Acute exacerbation of CHF (congestive heart failure) (Acute) Past Medical History Medical History (Updated 03/09/25 @ 12:13 by Jignesh Mcdaniel MD) A-fib Mass, brain Sarcoidosis GERD (gastroesophageal reflux disease) Hyperlipidemia Type 2 diabetes mellitus CHF (congestive heart failure) Essential hypertension Functional capacity: independent ambulation Family History Family history of problems with anesthesia: No Surgical History History of Problems with Anesthesia: No Social History Social History Household Members: None Housing: House Do you presently have visiting nurse or other home services: No Patient Tobacco Use Status: Never used Tobacco service: Yes Meds Allergies Allergy/AdvReac Type Severity Reaction Status Date / Time erythromycin base AdvReac Unknown Verified 03/08/25 14:47 lisinopril AdvReac Unknown Verified 03/08/25 14:47 Penicillins AdvReac Unknown Verified 03/08/25 14:47 Active Medications: Current Medications Acetaminophen (Acetaminophen 325 Mg Tablet) 975 mg PO Q6H PRN PRN Reason: Pain, Mild 1-3,fever,headache Last Admin: 03/10/25 00:25 Dose: 975 mg Albuterol/Ipratropium (Albuterol/Iprat 2.5/0.5mg 3 Ml Ampul.Neb) 3 ml INHALE Q3H PRN PRN Reason: wheezing Apixaban (Apixaban 5 Mg Tablet) 5 mg PO BID [facility] Last Admin: 03/10/25 09:01 Dose: 5 mg Atorvastatin Calcium (Atorvastatin Calcium 20 Mg Tablet) 20 mg PO BEDTIME PRUDENCIO Last Admin: 03/09/25 21:19 Dose: 20 mg Bupropion HCl (Bupropion Hcl Xl 150 Mg Tab.Er.24h) 150 mg PO BEDTIME PRUDENCIO Last Admin: 03/09/25 21:17 Dose: 150 mg Calcium Carbonate (Calcium Carbonate 750 Mg Tab.Chew) 750 mg PO Q4H PRN PRN Reason: Heartburn Ceftriaxone Sodium (Ceftriaxone Sodium 1 Gm Vial) 1 gm IVPUSH Q24H [facility] Last Admin: 03/09/25 21:17 Dose: 1 gm Dextrose (Dextrose 50 % 25 Gm/50 Ml Syringe) 25 gm IVPUSH Q15M PRN; Protocol PRN Reason: per Hypoglycemia Standing Ord. Empagliflozin (Empagliflozin 25 Mg Tablet) 25 mg PO DAILY [facility] On Hold: 03/09/25 13:48 Last Admin: 03/09/25 08:38 Dose: 25 mg Fenofibrate (Fenofibrate,Micronized 134 Mg Capsule) 134 mg PO DAILY [facility] Last Admin: 03/10/25 09:01 Dose: 134 mg Fluticasone Propionate (Fluticasone Propionate Nasal 16 Gm [place]) 2 spray NOSTRIL-B DAILY PRN PRN Reason: Allergy Symptoms Furosemide (Furosemide 40 Mg/4 Ml Vial) 40 mg IVPUSH BID@0900,1800 [facility]; Protocol Last Admin: 03/10/25 09:01 Dose: 40 mg Gabapentin (Gabapentin 400 Mg Capsule) 400 mg PO BID [facility] Last Admin: 03/10/25 09:01 Dose: 400 mg Glucose (Glucose Gel 15 Gm Gel..Gram.) 15 gm PO Q15M PRN; Protocol PRN Reason: per Hypoglycemia Standing Ord. Azithromycin 500 mg/ Sodium (Chloride) 250 mls @ 125 mls/hr IV Q24H [facility] Last Infusion: 03/10/25 00:27 Dose: Infused Insulin Human Lispro (Insulin Lispro 100 Unit/Ml 3 Ml Vial) 0 unit SUBCUT QIDACHS [facility]; Protocol Last Admin: 03/10/25 12:14 Dose: Not Given Losartan Potassium (Losartan Potassium 50 Mg Tablet) 50 mg PO BID [facility]; Protocol Last Admin: 03/10/25 09:01 Dose: 50 mg Magnesium Hydroxide (Milk Of Magnesia 30 Ml Oral.Susp) 30 ml PO DAILY PRN PRN Reason: Constipation Last Admin: 03/10/25 00:25 Dose: 30 ml Metoprolol Tartrate (Metoprolol Tartrate 50 Mg Tablet) 50 mg PO BID [facility]; Protocol Last Admin: 03/10/25 10:40 Dose: 50 mg Sodium Chloride (0.9 % Sodium Chloride Flush 3 Ml Syringe) [facility] Last Admin: 03/10/25 09:01 Dose: 3 ml Venlafaxine HCl (Venlafaxine Hcl Er 150 Mg Cap.Er.24h) 150 mg PO DAILY@0800 [facility] Last Admin: 03/10/25 09:01 Dose: 150 mg Venlafaxine HCl (Venlafaxine Hcl Er 75 Mg Cap.Er.24h) 75 mg PO DAILY@2000 [facility] Last Admin: 03/09/25 21:18 Dose: 75 mg Vitamin D (Cholecalciferol (Vitamin D3) 25 Mcg Tablet) 50 mcg PO DAILY [facility] Last Admin: 03/10/25 09:00 Dose: 50 mcg Home Medications ?Medication ?Instructions ?Recorded ?Confirmed ?Last Taken ?Type albuterol sulfate 90 mcg/actuation 2 puff inhalation Q4-6H PRN 03/08/25 03/08/25 Unknown History aerosol inhaler Shortness Of Breath Or Wheezing alogliptin 25 mg tablet 25 mg PO DAILY 03/08/25 03/10/25 Unknown History atorvastatin 20 mg tablet 20 mg PO BEDTIME 03/08/25 03/08/25 Unknown History bupropion HCl 150 mg tablet,12 hr 150 mg PO DAILY 03/08/25 03/08/25 Unknown History sustained-release cetirizine 10 mg tablet 10 mg PO DAILY 03/08/25 03/10/25 Unknown History cholecalciferol (vitamin D3) 50 50 mcg PO DAILY 03/08/25 03/08/25 Unknown History mcg (2,000 unit) capsule (Vitamin D3) doxazosin 8 mg tablet 8 mg PO BEDTIME 03/08/25 03/10/25 Unknown History empagliflozin 25 mg tablet 25 mg PO DAILY 03/08/25 03/08/25 03/09/25 08:30 History (Jardiance) fenofibrate micronized 130 mg 130 mg PO DAILY 03/08/25 03/08/25 Unknown History capsule fluticasone propionate 50 2 spray intranasal DAILY PRN 03/08/25 03/08/25 Unknown History mcg/actuation nasal Allergy Symptoms spray,suspension gabapentin 400 mg capsule 400 mg PO BID 03/08/25 03/08/25 Unknown History losartan 50 mg tablet 50 mg PO BID 03/08/25 03/08/25 Unknown History metformin 500 mg tablet,extended 1,000 mg PO DAILY 03/08/25 03/08/25 Unknown History release 24 hr metoprolol tartrate 50 mg tablet 50 mg PO BID 03/08/25 03/08/25 Unknown History pantoprazole 40 mg tablet,delayed 40 mg PO BID 03/08/25 03/10/25 Unknown History release semaglutide 1 mg/dose (4 mg/3 mL) 1 mg subcut FR 03/08/25 03/08/25 03/07/25 History subcutaneous pen injector (Ozempic) spironolactone 25 mg tablet 25 mg PO BID 03/08/25 03/10/25 Unknown History tadalafil 5 mg tablet 5 mg PO DAILY 03/08/25 03/08/25 Unknown History tamsulosin 0.4 mg capsule 0.4 mg PO DAILY 03/08/25 03/10/25 Unknown History venlafaxine 75 mg capsule,extended 75 mg PO DAILY@199903/08/25 03/08/25 Unknown History release 24 hr venlafaxine 75 mg capsule,extended 150 mg PO DAILY@0803/08/25 03/08/25 Unknown History release 24 hr Exam Height,Weight and Vital Signs: Height 6 ft 1 in Weight 95.1 kg Last Vital Signs Temp 97.9 F 03/10/25 12:00 Pulse 84 03/10/25 12:00 Resp 18 03/10/25 12:00 BP 150/90 H 03/10/25 12:00 Pulse Ox 94 03/10/25 12:00 O2 Del Method Room Air 03/10/25 12:00 Pertinent Lab Results Pertinent Lab Results: Laboratory Tests 07/12/25 07/12/25 07/12/25 15:16 21:21 21:49 WBC 7.8 RBC 5.07 Hgb 15.3 Hct 45.0 MCV 88.8 MCH 30.2 MCHC 34.0 RDW 14.6 Plt Count 229 MPV 12.1 Immature Gran % (Auto) 0.4 Neut % (Auto) 69.8 Lymph % (Auto) 20.8 Dolores % (Auto) 7.5 Eos % (Auto) 1.0 Baso % (Auto) 0.5 Lymph # (Auto) 1.6 Dolores # (Auto) 0.6 Eos # (Auto) 0.1 Baso # (Auto) 0.0 Abs Immat Gran (auto) 0.03 Absolute Neuts (auto) 5.5 Absolute Nucleated RBC 0.000 Nucleated RBC % (auto) 0.0 Hold Purple Top Sodium 139 Potassium 3.5 D Chloride 101 Carbon Dioxide 29 Anion Gap 13 BUN 13 Creatinine 1.03 Estim Creat Clear Calc 70.0 Estimated GFR > 60 POC Glucose 105 Random Glucose 132 H Fasting Glucose 133 H Calcium 9.9 Magnesium 1.9 Total Bilirubin 1.3 H AST 20 ALT 11 Alkaline Phosphatase 59 Troponin I High Sens 4.7 5.5 C-Reactive Protein 0.89 H B-Natriuretic Peptide 1176 H Total Protein 6.6 Albumin 4.[address] See Note Adenovirus (Rapid PCR) Not Detected B.pert (TEM-PCR) Not Detected B.parapertussis DNA PCR Not Detected C. pneumoniae DNA (PCR) Not Detected Coronavirus OC43 (PCR) Not Detected Coronavirus HKU1 (PCR) Not Detected Coronavirus 229E (PCR) Not Detected Coronavirus NL63 (PCR) Not Detected Human Metapneumovir PCR Not Detected Influenza A (RT-PCR) Not Detected Influenza A (H1) PCR Not Detected Influ A (H1/09) PCR Not Detected Influenza A (H3) PCR Not Detected Influenza B (RT-PCR) Not Detected M. pneumoniae (PCR) Not Detected Parainfluenza 1 (PCR) Not Detected Parainfluenza 2 (PCR) Not Detected Parainfluenza 3 (PCR) Not Detected Parainfluenza 4 (PCR) Not Detected RSV (PCR) Not Detected Entero/Rhino (PCR) Not Detected SARS-CoV-2 RNA (RT-PCR) Not Detected 03/09/25 03/09/25 03/09/25 06:27 06:55 10:48 WBC 7.2 RBC 4.91 Hgb 14.7 Hct 44.6 MCV 90.8 MCH 29.9 MCHC 33.0 RDW 14.5 Plt Count 193 MPV 12.7 H Immature Gran % (Auto) 0.4 Neut % (Auto) 51.1 Lymph % (Auto) 34.7 Dolores % (Auto) 10.7 Eos % (Auto) 2.1 Baso % (Auto) 1.0 Lymph # (Auto) 2.5 [place]ores # (Auto) 0.8 Eos # (Auto) 0.2 Baso # (Auto) 0.1 Abs Immat Gran (auto) 0.03 Absolute Neuts (auto) 3.7 Absolute Nucleated RBC 0.000 Nucleated RBC % (auto) 0.0 Hold Purple Top Sodium 142 Potassium 3.2 L Chloride 104 Carbon Dioxide 27 Anion Gap 14 BUN 15 Creatinine 0.94 Estim Creat Clear Calc 76.7 Estimated GFR > 60 POC Glucose 100 86 Random Glucose 89 Fasting Glucose Calcium 9.5 Magnesium 1.9 Total Bilirubin AST ALT Alkaline Phosphatase Troponin I High Sens C-Reactive Protein B-Natriuretic Peptide Total Protein Albumin Procalcitonin Respiratory Panel Street Adenovirus (Rapid PCR) B.pert (TEM-PCR) B.parapertussis DNA PCR C. pneumoniae DNA (PCR) Coronavirus OC43 (PCR) Coronavirus HKU1 (PCR) Coronavirus 229E (PCR) Coronavirus NL63 (PCR) Human Metapneumovir PCR Influenza A (RT-PCR) Influenza A (H1) PCR Influ A (H1/09) PCR Influenza A (H3) PCR Influenza B (RT-PCR) M. pneumoniae (PCR) Parainfluenza 1 (PCR) Parainfluenza 2 (PCR) Parainfluenza 3 (PCR) Parainfluenza 4 (PCR) RSV (PCR) Entero/Rhino (PCR) SARS-CoV-2 RNA (RT-PCR) 03/09/25 03/09/25 03/10/25 16:14 20:30 06:44 WBC RBC Hgb Hct MCV MCH MCHC RDW Plt Count MPV Immature Gran % (Auto) Neut % (Auto) Lymph % (Auto) Dolores % (Auto) Eos % (Auto) Baso % (Auto) Lymph # (Auto) [place] # (Auto) Eos # (Auto) Baso # (Auto) Abs Immat Gran (auto) Absolute Neuts (auto) Absolute Nucleated RBC Nucleated RBC % (auto) Hold Purple Top SEE NOTE Sodium Potassium Chloride Carbon Dioxide Anion Gap BUN Creatinine Estim Creat Clear Calc Estimated GFR POC Glucose 95 113 Random Glucose Fasting Glucose Calcium Magnesium Total Bilirubin AST ALT Alkaline Phosphatase Troponin I High Sens C-Reactive Protein B-Natriuretic Peptide 1557 H Total Protein Albumin Procalcitonin Respiratory Panel Street Adenovirus (Rapid PCR) B.pert (TEM-PCR) B.parapertussis DNA PCR C. pneumoniae DNA (PCR) Coronavirus OC43 (PCR) Coronavirus HKU1 (PCR) Coronavirus 229E (PCR) Coronavirus NL63 (PCR) Human Metapneumovir PCR Influenza A (RT-PCR) Influenza A (H1) PCR Influ A () PCR Influenza A (H3) PCR Influenza B (RT-PCR) M. pneumoniae (PCR) Parainfluenza 1 (PCR) Parainfluenza 2 (PCR) Parainfluenza 3 (PCR) Parainfluenza 4 (PCR) RSV (PCR) Entero/Rhino (PCR) SARS-CoV-2 RNA (RT-PCR) 03/10/25 03/10/25 07:42 11:54 WBC RBC Hgb Hct MCV MCH MCHC RDW Plt Count MPV Immature Gran % (Auto) Neut % (Auto) Lymph % (Auto) [place] % (Auto) Eos % (Auto) Baso % (Auto) Lymph # (Auto) [place] # (Auto) Eos # (Auto) Baso # (Auto) Abs Immat Gran (auto) Absolute Neuts (auto) Absolute Nucleated RBC Nucleated RBC % (auto) Hold Purple Top Sodium Potassium Chloride Carbon Dioxide Anion Gap BUN Creatinine Estim Creat Clear Calc Estimated GFR POC Glucose 99 95 Random Glucose Fasting Glucose Calcium Magnesium Total Bilirubin AST ALT Alkaline Phosphatase Troponin I High Sens C-Reactive Protein B-Natriuretic Peptide Total Protein Albumin Procalcitonin Respiratory Panel Street Adenovirus (Rapid PCR) B.pert (TEM-PCR) B.parapertussis DNA PCR C. pneumoniae DNA (PCR) Coronavirus OC43 (PCR) Coronavirus HKU1 (PCR) Coronavirus 229E (PCR) Coronavirus NL63 (PCR) Human Metapneumovir PCR Influenza A (RT-PCR) Influenza A (H1) PCR Influ A () PCR Influenza A (H3) PCR Influenza B (RT-PCR) M. pneumoniae (PCR) Parainfluenza 1 (PCR) Parainfluenza 2 (PCR) Parainfluenza 3 (PCR) Parainfluenza 4 (PCR) RSV (PCR) Entero/Rhino (PCR) SARS-CoV-2 RNA (RT-PCR) Airway Mallampati Class: III TM Dist: >3cm Neck ROM: Full Denture: Upper (Permanent) Loose/Missing/Broken Teeth: No Heart: irregularly, irregular Lungs: clear to auscultation b/l Assessment and Plan Final Anesthetic Review Family History of Problems with Anesthesia: No History of Problems with Anesthesia: No Documented by User: Wade Camp MD 03/14/25 13:30 [facility] Past Medical History Medical History (Updated 03/09/25 @ 12:13 by Jignesh Mcdaniel MD) A-fib Mass, brain Sarcoidosis GERD (gastroesophageal reflux disease) Hyperlipidemia Type 2 diabetes mellitus CHF (congestive heart failure) Essential hypertension Social History Social History Household Members: None Housing: House Do you presently have visiting nurse or other home services: No Patient Tobacco Use Status: Never used Tobacco service: Yes Meds Allergies Allergy/AdvReac Type Severity Reaction Status Date / Time erythromycin base AdvReac Unknown Verified 03/08/25 14:47 lisinopril AdvReac Unknown Verified 03/08/25 14:47 Penicillins AdvReac Unknown Verified 03/08/25 14:47 Home Medications ?Medication ?Instructions ?Recorded ?Confirmed ?Last Taken ?Type albuterol sulfate 90 mcg/actuation 2 puff inhalation Q4-6H PRN 03/08/25 03/08/25 Unknown History aerosol inhaler Shortness Of Breath Or Wheezing alogliptin 25 mg tablet 25 mg PO DAILY 03/08/25 03/10/25 Unknown History atorvastatin 20 mg tablet 20 mg PO BEDTIME 03/08/25 03/08/25 Unknown History bupropion HCl 150 mg tablet,12 hr 150 mg PO DAILY 03/08/25 03/08/25 Unknown History sustained-release cetirizine 10 mg tablet 10 mg PO DAILY 03/08/25 03/10/25 Unknown History cholecalciferol (vitamin D3) 50 50 mcg PO DAILY 03/08/25 03/08/25 Unknown History mcg (2,000 unit) capsule (Vitamin D3) doxazosin 8 mg tablet 8 mg PO BEDTIME 03/08/25 03/10/25 Unknown History empagliflozin 25 mg tablet 25 mg PO DAILY 03/08/25 03/08/25 03/09/25 08:30 History (Jardiance) fenofibrate micronized 130 mg 130 mg PO DAILY 03/08/25 03/08/25 Unknown History capsule fluticasone propionate 50 2 spray intranasal DAILY PRN 03/08/25 03/08/25 Unknown History mcg/actuation nasal Allergy Symptoms spray,suspension gabapentin 400 mg capsule 400 mg PO BID 03/08/25 03/08/25 Unknown History losartan 50 mg tablet 50 mg PO BID 03/08/25 03/08/25 Unknown History metformin 500 mg tablet,extended 1,000 mg PO DAILY 03/08/25 03/08/25 Unknown History release 24 hr metoprolol tartrate 50 mg tablet 50 mg PO BID 03/08/25 03/08/25 Unknown History pantoprazole 40 mg tablet,delayed 40 mg PO BID 03/08/25 03/10/25 Unknown History release semaglutide 1 mg/dose (4 mg/3 mL) 1 mg subcut FR 03/08/25 03/08/25 03/07/25 History subcutaneous pen injector (Ozempic) spironolactone 25 mg tablet 25 mg PO BID 03/08/25 03/10/25 Unknown History tadalafil 5 mg tablet 5 mg PO DAILY 03/08/25 03/08/25 Unknown History tamsulosin 0.4 mg capsule 0.4 mg PO DAILY 03/08/25 03/10/25 Unknown History venlafaxine 75 mg capsule,extended 75 mg PO DAILY@2000 03/08/25 03/08/25 Unknown History release 24 hr venlafaxine 75 mg capsule,extended 150 mg PO DAILY@0803/08/25 03/08/25 Unknown History release 24 hr Assessment and Plan Assessment Anesthesia Assessment: Anesthesia Plan Discussed and Chart Reviewed Final Anesthetic Review NPO: Yes ASA Class: III and Emergency Final Preanesthetic Review: No Changes in Pt Med Stat, Meds/Allgs Chart Reviewed, Consent Obtained/Reviewed and Anes Risks/Benef Reviewed Patient Risk: High (full stomach) Procedure Risk: Low Anesthetic Plan Anesthetic Plan: MAC: Disposition: Standard PACU
[2025-03-10 15:59] LABS: Glucose, Whole Blood 65 mg/dL (60-115)
[2025-03-10 20:48] LABS: Glucose, Whole Blood 126 mg/dL (60-115)
[2025-03-10] MEDS: buPROPion HCl XL 150 MG TAB.ER.24H PO (21:24)
[2025-03-10] MEDS: Potassium Chloride ER 20 MEQ TAB.ER.PRT PO (21:24)
[2025-03-10] MEDS: Venlafaxine HCl ER 75 MG CAP.ER.24H PO (21:24)
[2025-03-11] VITALS (11 sets, daily range): BP systolic 109–164; BP diastolic 84–103; PULSE 64–94; RESP 14–20; TEMP 36.1–36.7; O2SAT 93–98
[2025-03-11 07:19] LABS: Anion Gap 11 (12-20); Blood Urea Nitrogen 21 mg/dL (9-16); Calcium 10.2 mg/dL (8.4-10.2); Carbon Dioxide 32 mmol/L (22-29); Chloride 103 mmol/L (96-108); Creatinine Clr Calc Pharmacy 55.9; Estimated Glomerular Filt Rate 54; Potassium 4.4 mmol/L (3.3-5.1); Sodium 142 mmol/L (135-145)
[2025-03-11] MEDS: Venlafaxine HCl ER 150 MG CAP.ER.24H PO (07:30)
[2025-03-11] MEDS: Potassium Chloride ER 20 MEQ TAB.ER.PRT PO ×2 (07:31→21:26)
[2025-03-11] MEDS: 0.9 % Sodium Chloride Flush 3 ML SYRINGE IVFLUSH ×2 (07:31→17:11)
[2025-03-11] MEDS: Furosemide 40 MG/4 ML VIAL IVPUSH ×2 (07:31→17:12)
[2025-03-11 07:35] LABS: Glucose, Whole Blood 113 mg/dL (60-115)
--- NOTE | 2025-03-11 09:45 | PM.PNCARD ---
Subjective Subjective Date of Service: 03/11/25 Interval history: He states that he feels okay. Awaiting MICKEY/cardioversion today. No new complaints. Review of Systems Review of Systems Yes all other systems are reviewed and are negative Constitutional: Reports as per HPI and Reports no additional constitutional complaints Eyes: Reports as per HPI and Denies no additional eye complaints Denies system reviewed and no additional complaints, except as documented and Reports as per HPI Cardiovascular: Reports as per HPI, Reports no additional cardiovascular complaints, Denies acrocyanosis, Denies cool extremities, Denies chest pain, Denies leg edema, Denies lightheadedness, Denies palpitations and Denies dyspnea Respiratory: Reports as per HPI, Denies no additional respiratory complaints and Denies dyspnea Gastrointestinal: Reports as per HPI and Denies no additional gastrointestinal complaints Genitourinary: Reports no additional male genitourinary complaints and Reports as per HPI Musculoskeletal: Reports no additional musculoskeletal complaints and Reports as per HPI Skin/Breast: Reports system reviewed and no additional complaints, except as docu Reports system reviewed and no additional complaints, except as documented and Reports as per HPI Psychiatric: Reports no additional psychiatric complaints and Reports as per HPI Endocrine: Reports no additional endocrine complaints, Reports as per HPI and Denies palpitations Hematologic/Lymphatic: Reports no additional hematologic/lymphatic complaints and Reports as per HPI Allergic/Immunologic: Reports no additional allergic/immunologic complaints and Reports as per HPI Physical Exam Vital Signs: Last Vital Signs Temp 96.9 F 03/11/25 07:32 Pulse 94 03/11/25 07:32 Resp 20 03/11/25 07:32 BP 158/100 H 03/11/25 07:32 Pulse Ox 93 03/11/25 07:32 O2 Del Method Room Air 03/11/25 07:32 BMI result Body Mass Index 27.7 Const General: comfortable and no acute distress Orientation/consciousness: patient oriented x3 HEENT Other: Unremarkable Head: Yes normal to inspection Neck Neck: Yes normal visual inspection Chest Chest palpation & inspection: normal inspection of the chest Resp Auscultation: clear to auscultation bilaterally Cardio Palpation: normal PMI Heart sounds: S1 normal heart sound present, S2 normal heart sound present, no gallops, no murmurs and no rubs GI Palpation (GI): Soft to palpation Back/Spine/Pelvis Other: unremarkable Skin General skin exam: no rashes or lesions noted Neuro General: patient oriented x3 Extrem General: Yes normal to inspection Psych Mental Status: mental status grossly normal Objective Labs and Meds 03/09/25 06:27 03/11/25 06:23 Lab results: Laboratory Results - last 24 hr 03/10/25 03/10/25 03/10/25 11:54 15:52 20:45 Sodium Potassium Chloride Carbon Dioxide Anion Gap BUN Creatinine Estim Creat Clear Calc Estimated GFR POC Glucose 95 65 126 H Random Glucose Calcium 03/11/25 03/11/25 06:23 07:30 Sodium 142 Potassium 4.4 D Chloride 103 Carbon Dioxide 32 H Anion Gap 11 L BUN 21 H Creatinine 1.29 Estim Creat Clear Calc 55.9 Estimated GFR 54 POC Glucose 113 Random Glucose 111 Calcium 10.2 D Progress Note: A&P Assessment and plan (1) Acute exacerbation of CHF (congestive heart failure): Status: Acute (2) A-fib: Status: Acute (3) Essential hypertension: Status: Acute Plan On telemetry, rate controlled atrial fibrillation. Home medications listed as amiodarone 200 mg daily/metoprolol 50 mg b.i.d.. It seems he was not on anticoagulation but has been recently started. Plan for MICKEY/cardioversion today. Postprocedure, likely keep him on the same medication as he takes at home. We will then need to follow up with his own allergy and immunology specialist at [place] regarding further care including suitability for ablation. With regard to blood pressure, seems to be running high. Add amlodipine. Plan discussed with son at the bedside. Currently on metoprolol/Eliquis. He is scheduled for MICKEY/cardioversion today in the afternoon. Time Spent With Patient Time: Total time managing care of this patient today ____ minutes. Progress Note: Quality Stroke Does the patient have a stroke diagnosis?: No Procedures Date of Service Date of Service: 03/11/25
--- NOTE | 2025-03-11 10:53 | P.PNIM_ITS ---
Subjective Subjective Date of Service: 03/11/25 Interval History: Seen and examined this morning Follow-up for AFib, CHF Has urinated several times since starting Lasix, breathing improving, no chest pain Review of Systems Review of Systems: Yes all other systems are reviewed and are negative Constitutional Constitutional: Denies chills and Denies fever(s) Cardiovascular Cardiovascular: Denies chest pain, Denies palpitations and Reports dyspnea Respiratory Respiratory: Denies cough and Reports dyspnea Endocrine Endocrine: Denies palpitations Physical Exam 2 Vital Signs: Vital Signs: Last Vital Signs Temp 96.9 F 03/11/25 07:32 Pulse 94 03/11/25 07:32 Resp 20 03/11/25 07:32 BP 158/100 H 03/11/25 07:32 Pulse Ox 93 03/11/25 07:32 O2 Del Method Room Air 03/11/25 07:32 BMI result Body Mass Index 27.7 Objective Data Active Medications Acetaminophen (Acetaminophen 325 Mg Tablet) 975 mg PO Q6H PRN PRN Reason: Pain, Mild 1-3,fever,headache Last Admin: 03/10/25 21:23 Dose: 975 mg Documented By: FELIPA Albuterol/Ipratropium (Albuterol/Iprat 2.5/0.5mg 3 Ml Ampul.Neb) 3 ml INHALE Q3H PRN PRN Reason: wheezing Apixaban (Apixaban 5 Mg Tablet) 5 mg PO BID [facility] Last Admin: 03/11/25 07:31 Dose: 5 mg Documented By: THIAGO Atorvastatin Calcium (Atorvastatin Calcium 20 Mg Tablet) 20 mg PO BEDTIME [facility] Last Admin: 03/10/25 21:24 Dose: 20 mg Documented By: FELIPA Bupropion HCl (Bupropion Hcl Xl 150 Mg Tab.Er.24h) 150 mg PO BEDTIME [facility] Last Admin: 03/10/25 21:24 Dose: 150 mg Documented By: FELIPA Calcium Carbonate (Calcium Carbonate 750 Mg Tab.Chew) 750 mg PO Q4H PRN PRN Reason: Heartburn Ceftriaxone Sodium (Ceftriaxone Sodium 1 Gm Vial) 1 gm IVPUSH Q24H [facility] Last Admin: 03/10/25 21:23 Dose: 1 gm Documented By: FELIPA Dextrose (Dextrose 50 % 25 Gm/50 Ml Syringe) 25 gm IVPUSH Q15M PRN; Protocol PRN Reason: per Hypoglycemia Standing Ord. Empagliflozin (Empagliflozin 25 Mg Tablet) 25 mg PO DAILY [facility] On Hold: 03/09/25 13:48 Last Admin: 03/09/25 08:38 Dose: 25 mg Documented By: JONELLE Fenofibrate (Fenofibrate,Micronized 134 Mg Capsule) 134 mg PO DAILY [facility] Last Admin: 03/11/25 07:31 Dose: 134 mg Documented By: THIAGO Fluticasone Propionate (Fluticasone Propionate Nasal 16 Gm [place]) 2 spray NOSTRIL-B DAILY PRN PRN Reason: Allergy Symptoms Furosemide (Furosemide 40 Mg/4 Ml Vial) 40 mg IVPUSH BID@0900,1800 [facility]; Protocol Last Admin: 03/11/25 07:31 Dose: 40 mg Documented By: THIAGO Gabapentin (Gabapentin 400 Mg Capsule) 400 mg PO BID [facility] Last Admin: 03/11/25 07:30 Dose: 400 mg Documented By: THIAGO Glucose (Glucose Gel 15 Gm Gel..Gram.) 15 gm PO Q15M PRN; Protocol PRN Reason: per Hypoglycemia Standing Ord. Azithromycin 500 mg/ Sodium (Chloride) 250 mls @ 125 mls/hr IV Q24H [facility] Last Infusion: 03/10/25 23:25 Dose: Infused Documented By: FELIPA Insulin Human Lispro (Insulin Lispro 100 Unit/Ml 3 Ml Vial) 0 unit SUBCUT QIDACHS [facility]; Protocol Last Admin: 03/11/25 07:26 Dose: Not Given Documented By: THIAGO Non-Admin Reason: No Insulin Coverage Losartan Potassium (Losartan Potassium 50 Mg Tablet) 50 mg PO BID [facility]; Protocol Last Admin: 03/11/25 07:31 Dose: 50 mg Documented By: THIAGO Magnesium Hydroxide (Milk Of Magnesia 30 Ml Oral.Susp) 30 ml PO DAILY PRN PRN Reason: Constipation Last Admin: 03/10/25 00:25 Dose: 30 ml Documented By: FELIPA Metoprolol Tartrate (Metoprolol Tartrate 50 Mg Tablet) 50 mg PO BID [facility]; Protocol On Hold: 03/11/25 08:39 Last Admin: 03/11/25 07:21 Dose: Not Given Documented By: THIAGO Non-Admin Reason: Hold for cardioversion Potassium Chloride (Potassium Chloride Er 20 Meq Tab.Er.Prt) 20 meq PO BID [facility] Last Admin: 03/11/25 07:31 Dose: 20 meq Documented By: THIAGO Sodium Chloride (0.9 % Sodium Chloride Flush 3 Ml Syringe) 3 ml IVFLUSH QSHIFT [facility] Last Admin: 03/11/25 07:31 Dose: 3 ml Documented By: THIAGO Venlafaxine HCl (Venlafaxine Hcl Er 150 Mg Cap.Er.24h) 150 mg PO DAILY@0800 [facility] Last Admin: 03/11/25 07:30 Dose: 150 mg Documented By: THIAGO Venlafaxine HCl (Venlafaxine Hcl Er 75 Mg Cap.Er.24h) 75 mg PO DAILY@1999 [facility] Last Admin: 03/10/25 21:24 Dose: 75 mg Documented By: FELIPA Vitamin D (Cholecalciferol (Vitamin D3) 25 Mcg Tablet) 50 mcg PO DAILY [facility] Last Admin: 03/11/25 07:31 Dose: 50 mcg Documented By: THIAGO Labs 03/09/25 06:27 03/11/25 06:23 Labs: Laboratory Results - last 24 hr 03/10/25 03/10/25 03/10/25 11:54 15:52 20:45 Anion Gap Estim Creat Clear Calc Estimated GFR POC Glucose 95 65 126 H Random Glucose Calcium 03/11/25 03/11/25 06:23 07:30 Anion Gap 11 L Estim Creat Clear Calc 55.9 Estimated GFR 54 POC Glucose 113 Random Glucose 111 Calcium 10.2 D Assessment and Plan (1) Acute exacerbation of CHF (congestive heart failure): Status: Acute Plan 74 y/o male visiting from [place] with a history of atrial fibrillation, CAD status post stent placement, hypertension, diabetes, sarcoidosis, brain mass who was initially seen in the emergency department on March 02 with shortness of breath and chest pain, at that time he was started on Eliquis as he was noted to be in AFib and was discharged with Lasix as well he returned to the emergency room March 08 with ongoing symptoms and was admitted for acute CHF. Atrial fibrillation, paroxysmal Currently rate controlled Have not been able to confirm if patient is still taking amiodarone Continue metoprolol and Eliquis Seen by Cardiology, plan for cardioversion today, BB held Right upper lobe consolidation/pneumonia no sepsis RPP negative, procalcitonin low CTA from 03/03 showing right side consolidation and cxr showing persistent areas of possible infection continue IV ceftriaxone and azithromycin Acute HFrEF. Resolved likely due to underlying afib/uncontrolled HTN Continue IV diuresis with IV lasix- follow Is&Os Continue metoprolol, losartan, jardiance echo with EF of 45%, basal inferior and mid inferior segments akinetic, evidence of regional wall motion abnormalities, [id number] concentric left ventricular hypertrophy cardiology following CAD s/p stenting. Continue aspirin and statin. Essential hypertension. Continue metoprolol, losartan spironolactone not confirmed Hyperlipidemia. Continue statin, lofibra Type 2 diabetes mellitus. Hold Metformin, Ozempic SSI, ADA diet Mood Continue baseline medication DVT prophylaxis: Lidia Code status: Full Pharmacy For Stone Walker in [facility], I followed up with his pharmacies in [place]. Patient claimed he takes amiodarone 200 mg daily, spironolactone 25 mg bid, tamsulosin 0.4 mg daily, doxazosin 8 mg at bedtime and alogliptin 25 mg daily but pharmacies confirmed they have NO claims for these meds . Quality Stroke Does the patient have a stroke diagnosis?: No VTE Prior VTE?: No VTE Risk Level:: Medical - moderate - high VTE Device Contraindication: Treatment Not Indicated VTE Drug Contraindication: N/A - Med Ordered
[2025-03-11 12:28] LABS: Glucose, Whole Blood 115 mg/dL (60-115)
--- NOTE | 2025-03-11 12:52 | MHC.SHP ---
Pre-Procedural Eval Section A - 24 Hr Update-Section A only Date of Service: 03/11/25 The patient is an INPATIENT: Yes Section B - Complete if H&P > 30 days Chief Complaint: Pulmonary Edema Allergies: Allergies Allergy/AdvReac Type Severity Reaction Status Date / Time erythromycin base AdvReac Unknown Verified 03/08/25 14:47 lisinopril AdvReac Unknown Verified 03/08/25 14:47 Penicillins AdvReac Unknown Verified 03/08/25 14:47 Plan I have reviewed the history and physical and performed a pertinent physical examination on my patient. No changes have occurred unless specified. Time Spent With Patient Time: Total time managing care of this patient today ____ minutes.
--- NOTE | 2025-03-11 14:30 | CA_ITS ---
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 There is no evidence of a thrombus in the left atrial appendage. Findings Left Ventricle Normal left ventricular cavity size. The left ventricular systolic function is low normal. The visually estimated ejection fraction is between 50-55%. Right Ventricle Mildly increased right ventricular cavity size. There is normal right ventricular systolic function. Atria There is no evidence of a thrombus in the left atrial appendage. Reduced velocities in the appendage by Doppler evaluation. Aortic Valve There is a normal trileaflet aortic valve. There is no aortic valve stenosis. There is no aortic valve regurgitation. Mitral Valve There is mild mitral valve regurgitation. There is no mitral valve stenosis. Tricuspid Valve Normal tricuspid valve structure. Great Vessels The asc aorta is normal in size. There is mild dilatation of the aortic arch and mild dilatation of the descending aorta. Small plaque is seen in the sino tubular ridge. Pericardium/Pleural There is no evidence of pericardial effusion. Prior Study Comparison No significant change compared to prior study dated: 03/10/2025. Updated by Emily Burdick on 11:57 AM with Status of Final James Doan MD electronically signed on 03/17/2025 12:06:58 PM with status of Final
--- NOTE | 2025-03-11 15:20 | P.PNCAR_ITS ---
Cardioversion Procedure Note Cardioversion Date of Procedure: 03/11/2025 Pre-Op Diagnosis: Atrial fibrillation, congestive heart failure Post-Op Diagnosis: Sinus rhythm MICKEY findings (if MICKEY Performed): No evidence of left atrial appendage thrombus. Consent: Informed consent obtained. Procedure: After informed consent was obtained, patient was taken to the operating room. He was positioned appropriately. Patient was intubated by the anesthesiologist a transesophageal echocardiogram was initially completed that showed no evidence of left atrial appendage thrombus. Subsequently, 150 joules of synchronized shock was administered with pads in the anteroposterior position. That converted his rhythm from atrial fibrillation to sinus. He remained in sinus of the end of procedure. Complications: None. Impression: Successful cardioversion from atrial fibrillation to sinus rhythm. Recommendations: Continue amiodarone and metoprolol. Continue anticoagulation. 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
--- NOTE | 2025-03-11 15:20 | ECG_ITS ---
Test Reason : POSTOP Blood Pressure : */* mmHG Vent. Rate : 68 BPM Atrial Rate : 68 BPM P-R Int : 236 ms QRS Dur : 150 ms QT Int : 484 ms P-R-T Axes : 22 84 48 degrees QTcB Int : 514 ms Sinus rhythm with 1st degree A-V block with Premature atrial complexes Right bundle branch block Cannot rule out Inferior infarct (cited on or before 02-Mar-2025) Abnormal ECG When compared with ECG of 08-Mar-2025 15:01, Sinus rhythm has replaced Atrial fibrillation Referred By: Yanique Mohr Electronically Signed By: YANIQUE MOHR
[2025-03-11 16:24] LABS: Glucose, Whole Blood 122 mg/dL (60-115)
[2025-03-11 21:07] LABS: Glucose, Whole Blood 116 mg/dL (60-115)
[2025-03-11] MEDS: Venlafaxine HCl ER 75 MG CAP.ER.24H PO (21:25)
[2025-03-11] MEDS: buPROPion HCl XL 150 MG TAB.ER.24H PO (21:27)
[2025-03-12 03:57] VITALS: BP 139/92; PULSE 68; RESP 16; TEMP 36.7; O2SAT 92
[2025-03-12 07:52] LABS: Glucose, Whole Blood 112 mg/dL (60-115)
[2025-03-12 07:53] VITALS: BP 139/79; PULSE 86; RESP 20; TEMP 36.6; O2SAT 95
[2025-03-12] MEDS: Furosemide 40 MG/4 ML VIAL IVPUSH (08:10)
[2025-03-12] MEDS: Potassium Chloride ER 20 MEQ TAB.ER.PRT PO (08:11)
[2025-03-12] MEDS: Venlafaxine HCl ER 150 MG CAP.ER.24H PO (08:11)
[2025-03-12] MEDS: 0.9 % Sodium Chloride Flush 3 ML SYRINGE IVFLUSH ×2 (08:18)
--- NOTE | 2025-03-12 08:21 | P.DS_ITS ---
DS: Providers Provider Date of Service: 03/12/25 Date of admission: 03/08/25 16:51 Date of discharge: 03/12/25 Primary care physician: Unknown Physician Consults: 03/08/25 20:17 Consult to Cardiology Routine Consulting [place] [facility] Reason for consultation: History of AFib and CHF. Pulmonary edema. Has provider been notified: Yes DS: Diagnosis Discharge Diagnosis (1) Acute exacerbation of CHF (congestive heart failure): Status: Acute DS: Summary Hospital Course Hospital Course: History and physical as per admitting provider. Stone Walker is a very pleasant 74 years old man with past medical history significant for CHF, atrial fibrillation on Eliquis -has been cardioverted X2, hyperlipidemia, CAD status post stenting (last 2021) and essential hypertension presents to the emergency department complaining of chest pain/ache in the middle of the chest, lethargy, palpitations and shortness on breath. He has been experiencing these symptoms since Monday. He is currently free of chest pain. He also reported some headache, fatigue, generalized malaise and stomachache. He increased his lactulose from 20 mg once daily to twice daily. He also uses spironolactone. He has been your seems Ozempic, last dose was yesterday. Denied tobacco smoking, alcohol abuse or illicit drug use. The patient is from [place]. Last Monday he was evaluated in the ED. At that time, his x-ray showed patchy bilateral airspace opacity concerning for pneumonia with a pleural effusion or pneumothorax. He also underwent a chest CTA that showed no pulmonary embolism or a small right upper lobe consolidation, peribronchial thickening, pulmonary edema with small bilateral pleural effusions. Viral panel was negative for influenza, RSV and COVID. His son was at bedside. In the ED today, he was found to have the dyspnea, last blood pressure is 148/118. Oxygen saturation is normal on room air however it dropped to 89% with ambulation. Blood workup is remarkable for normal CBC. CRP is elevated, 0.89. There are no electrolyte imbalances. Creatinine is 1.03 and BUN 13. LFTs are unremarkable except for minimal elevation of total bilirubin. BNP is 1176 and troponin 4.7. ECGs today showed atrial fibrillation, right bundle-branch block without ischemic changes. CXR today showed persistent areas of possible infection in the right upper lobe and peripheral left lung base, persistent prominence of pulmonary vasculature suggesting CHF/pulmonary edema and trace bilateral pleural effusion. ED tx: Furosemide 40 mg IV.. 74-year-old man treated for heart failure with reduced ejection fraction and paroxysmal atrial fibrillation. Heart failure with reduced ejection fraction likely secondary to underlying AFib and uncontrolled hypertension. Treated with IV Lasix, continued metoprolol, losartan, Jardiance. Echocardiogram with EF of 45%, basal inferior and mid inferior segment akinesis, evidence of regional wall motion abnormalities. Seen evaluated by Cardiology and is status post successful cardioversion on 03/11/2025. Plan will be for patient to follow up with his global category manager in [place] for consideration of ablation. Continue eliquis Pneumonia. No sepsis. RPP negative. Procalcitonin low. Treated with IV ceftriaxone and azithromycin. No hypoxia and did not require oxygen. Coronary artery disease status post stenting. Continue aspirin and statin Essential hypertension. Continue metoprolol, losartan Hyperlipidemia. Continue statin Diabetes mellitus type 2. Continue home medications Mental health. Continue home medications Time Attestation Discharge Coordination Time (in mins): 45 Quality: Safe Use of Opioids Does Pt have an Active Cancer Diagnosis on the Problem List?: No Quality: Stroke Does the patient have a stroke diagnosis?: No Physical Exam Vital Signs: Vital Signs: Last Vital Signs Temp 97.9 F 03/12/25 07:53 Pulse 86 03/12/25 07:53 Resp 20 03/12/25 07:53 BP 139/79 03/12/25 07:53 Pulse Ox 95 03/12/25 07:53 O2 Del Method Room Air 03/12/25 07:53 O2 Flow Rate 2 03/11/25 15:55 BMI result Body Mass Index 27.7 Appearing in no acute distress head is normocephalic atraumatic eyes pupils are PERRLA sclera is anicteric mouth throat mucous membranes are intact and moist neck is supple no lymphadenopathy, no JVD noted lung sounds are clear to auscultation heart regular rate rhythm, clear S1, S2 positive bowel sounds, abdomen is soft, nontender neuro patient is alert x3, no focal deficits DS: Data Data Completed and Pending Labs on day of discharge: Laboratory Results - last 24 hr 03/11/25 03/11/25 03/11/25 11:33 16:20 21:03 POC Glucose 115 122 H 116 H 03/12/25 07:47 POC Glucose 112 Discharge Plan Discharge Anticipated Discharge Date/Time: 03/12/25 08:17 Patient Disposition: Home, Self-Care Discharge Diagnosis: Atrial fibrillation Cardioversion Hypertension Heart failure with reduced ejection fraction Referrals: James Doan MD [Physician, Cardiology] Discharge Medications: New Eliquis 5 mg Tablet 5 mg PO BID Qty: 180 0RF Continued losartan 50 mg tablet 50 mg PO BID bupropion HCl 150 mg tablet sustained-release 12 hr 150 mg PO DAILY venlafaxine 75 mg capsule,extended release 24hr 150 mg PO DAILY@0800 atorvastatin 20 mg tablet 20 mg PO BEDTIME gabapentin 400 mg capsule 400 mg PO BID pantoprazole 40 mg tablet,delayed release (DR/EC) 40 mg PO BID metoprolol tartrate 50 mg tablet 50 mg PO BID albuterol sulfate 90 mcg/actuation HFA aerosol inhaler 2 puff inhalation Q4-6H PRN (Reason: Shortness Of Breath Or Wheezing) fluticasone propionate 50 mcg/actuation spray,suspension 2 spray intranasal DAILY PRN (Reason: Allergy Symptoms) metformin 500 mg tablet extended release 24 hr 1,000 mg PO DAILY tadalafil 5 mg tablet 5 mg PO DAILY fenofibrate micronized 130 mg capsule 130 mg PO DAILY Jardiance 25 mg tablet 25 mg PO DAILY Ozempic 1 mg/dose (4 mg/3 mL) pen injector 1 mg SUBCUT FR venlafaxine 75 mg capsule,extended release 24hr 75 mg PO DAILY@2000 cetirizine 10 mg Tablet 10 mg PO DAILY amiodarone 200 mg Tablet 200 mg PO DAILY spironolactone 25 mg Tablet 25 mg PO BID doxazosin 8 mg Tablet 8 mg PO BEDTIME tamsulosin 0.4 mg Capsule 0.4 mg PO DAILY cholecalciferol (vitamin D3) [Vitamin D3] 50 mcg (2,000 unit) Capsule 50 mcg PO DAILY alogliptin 25 mg Tablet 25 mg PO DAILY Discontinued Eliquis DVT-PE Treat 30D Start 5 mg (74 tabs) tablets,dose pack 5 mg PO BID Qty: 74 0RF Discharge Orders: Discharge Order (Routine); Ordered 03/12/25 Ordered By: Rose Russell Diet: Advance to usual diet Activity on Discharge: As tolerated Stand Alone Forms: Patient Portal Discharge page Print Language: [place]an Care Plan Goals: Continue current home medications Follow up with Cardiology Health Concerns: Atrial fibrillation Cardioversion Hypertension Heart failure with reduced ejection fraction Plan of Treatment: Follow up with primary care provider as needed Take all medications as prescribed Assessment: See discharge summary
--- NOTE | 2025-03-12 08:28 | HO.POSTANES ---
Post Anesthesia Evaluation Post Anesthesia Evaluation Date of Service: 03/12/25 Vital Signs: Vital Signs Temp Pulse Resp BP Pulse Ox O2 Del Method 03/12/25 07:53 97.9 F 86 20 139/79 95 Room Air 03/12/25 03:57 98.0 F 68 16 139/92 H 92 CPAP 03/11/25 23:18 97.8 F 77 16 138/95 H 94 Room Air Anesthesia: General Mental Status: Awake Pain Control: Satisfactory Nausea/Vomiting: None Hydration: Adequate Anesthesia-Related Issues: No Anes. Related Issues
--- NOTE | 2025-03-12 09:58 | P.PNCA_ITS ---
Subjective Subjective Date of Service: 03/12/25 Interval history: He underwent MICKEY/cardioversion yesterday. Converted to sinus rhythm. He is remaining sinus rhythm but he has frequent PACs on telemetry. Otherwise he states he feels great. Denies any cardiac symptoms. Review of Systems Review of Systems Yes all other systems are reviewed and are negative Constitutional: Reports as per HPI and Reports no additional constitutional complaints Eyes: Reports as per HPI and Denies no additional eye complaints Denies system reviewed and no additional complaints, except as documented and Reports as per HPI Cardiovascular: Reports as per HPI, Reports no additional cardiovascular complaints, Denies acrocyanosis, Denies cool extremities, Denies chest pain, Denies leg edema, Denies lightheadedness, Denies palpitations and Denies dyspnea Respiratory: Reports as per HPI, Denies no additional respiratory complaints and Denies dyspnea Gastrointestinal: Reports as per HPI and Denies no additional gastrointestinal complaints Genitourinary: Reports no additional male genitourinary complaints and Reports as per HPI Musculoskeletal: Reports no additional musculoskeletal complaints and Reports as per HPI Skin/Breast: Reports system reviewed and no additional complaints, except as docu Reports system reviewed and no additional complaints, except as documented and Reports as per HPI Psychiatric: Reports no additional psychiatric complaints and Reports as per HPI Endocrine: Reports no additional endocrine complaints, Reports as per HPI and Denies palpitations Hematologic/Lymphatic: Reports no additional hematologic/lymphatic complaints and Reports as per HPI Allergic/Immunologic: Reports no additional allergic/immunologic complaints and Reports as per HPI Physical Exam Vital Signs: Last Vital Signs Temp 97.9 F 03/12/25 07:53 Pulse 86 03/12/25 07:53 Resp 20 03/12/25 07:53 BP 139/79 03/12/25 07:53 Pulse Ox 95 03/12/25 07:53 O2 Del Method Room Air 03/12/25 07:53 O2 Flow Rate 2 03/11/25 15:55 BMI result Body Mass Index 27.7 Const General: comfortable and no acute distress Orientation/consciousness: patient oriented x3 HEENT Other: Unremarkable Head: Yes normal to inspection Neck Neck: Yes normal visual inspection Chest Chest palpation & inspection: normal inspection of the chest Resp Auscultation: clear to auscultation bilaterally Cardio Palpation: normal PMI Heart sounds: S1 normal heart sound present, S2 normal heart sound present, no gallops, no murmurs and no rubs GI Palpation (GI): Soft to palpation Back/Spine/Pelvis Other: unremarkable Skin General skin exam: no rashes or lesions noted Neuro General: patient oriented x3 Extrem General: Yes normal to inspection Psych Mental Status: mental status grossly normal Objective Labs and Meds 03/09/25 06:27 03/11/25 06:23 Lab results: Laboratory Results - last 24 hr 03/11/25 03/11/25 03/11/25 11:33 16:20 21:03 POC Glucose 115 122 H 116 H 03/12/25 07:47 POC Glucose 112 Progress Note: A&P Assessment and plan (1) Acute exacerbation of CHF (congestive heart failure): Status: Acute (2) A-fib: Status: Acute (3) Essential hypertension: Status: Acute Plan Status post MICKEY/cardioversion yesterday. He converted to sinus rhythm. On telemetry, he has got frequent PACs. Sometimes looks like atrial bigeminy. With regard to the amiodarone, baseline dose of 200 mg daily. We can increase the 400 mg daily for a couple of weeks and then go back to the usual dose. Continue anticoagulation. He can discuss with own power house control room operator regarding atrial fibrillation ablation which would be appropriate for him. With regard to blood pressure, amlodipine was added and seems to help. Echocardiogram with LVEF of 45%. Basal/mid inferior akinesis. [id number] mitral regurgitation. Results discussed with patient and son. Upon discharge he will travel to [place] and contact his power house control room operator for follow-up appointments. Time Spent With Patient Time: Total time managing care of this patient today ____ minutes. Progress Note: Quality Stroke Does the patient have a stroke diagnosis?: No Procedures Date of Service Date of Service: 03/12/25
--- NOTE | 2025-03-12 11:19 | MHC.CM.PN ---
Pt has been medically cleared to DC, he will go home via family transport. Brochure for PCP's was given to him. DCP: home, self care.
[2025-03-12 18:03] LABS: Strep Pneumo Ag urine Not Detected (Not Detected)
== END 2025-03-12 14:06 | disposition home or self-care (01) | DRG 308 ==
LOC: HO.ED 16:40 → HO.EDOVER 17:07 → HO.IMC 19:37
PROVIDERS: Internal Medicine; Physician Assistant Medical; Admitting Provider Internal Medicine; Emergency Provider Emergency Medicine; Visit Provider Nurse Practitioner Acute Care
PROC: 5A2204Z Restoration of Cardiac Rhythm, Single (ICD-10-PCS; CPT 93312; principal; 2025-03-11 14:30)
PROC: 5A2204Z Restoration of Cardiac Rhythm, Single (ICD-10-PCS; 2025-03-11 14:30)
DX: I48.0 Paroxysmal atrial fibrillation (principal); I50.23 Acute on chronic systolic (congestive) heart failure; J18.9 Pneumonia, unspecified organism; E87.6 Hypokalemia; I11.0 Hypertensive heart disease with heart failure; E11.9 Type 2 diabetes mellitus without complications; E78.5 Hyperlipidemia, unspecified; I25.10 Atherosclerotic heart disease of native coronary artery without angina pectoris; I34.0 Nonrheumatic mitral (valve) insufficiency; Z95.5 Presence of coronary angioplasty implant and graft; Z20.822 Contact with and (suspected) exposure to COVID-19; Z79.84 Long term (current) use of oral hypoglycemic drugs; Z79.899 Other long term (current) drug therapy
CPT/HCPCS: 36415; 71046; 80048; 80053; 82947; 83735; 83880; 84145; 84484; 85025; 86140; 87449; 87633; 87899; 92960; 93005; 93306; 99285; J0456; J0696; J1938; J2003; J2371; J2405; J3010; Q9957

== ENCOUNTER → 2025-03-08 14:49 | Outpatient (BNV) | payer BC, MEDICARE, SELFPAY | PROVIDERS: Emergency Provider Emergency Medicine; Visit Provider Radiology Diagnostic Radiology | DX: R06.02 Shortness of breath (principal) | CPT/HCPCS: 71046 ==

== ENCOUNTER 2025-03-08 16:51 | Outpatient (BNV) | payer BC, SELFPAY | END 2025-03-11 15:20 | PROVIDERS: Admitting Provider Internal Medicine; Emergency Provider Emergency Medicine; Visit Provider Internal Medicine | DX: I34.0 Nonrheumatic mitral (valve) insufficiency (principal); I48.91 Unspecified atrial fibrillation; I77.810 Thoracic aortic ectasia | CPT/HCPCS: 93010; 93312; 93325 ==

== ENCOUNTER 2025-03-08 16:51 | Outpatient (BNV) | payer BC, SELFPAY | END 2025-03-10 07:00 | PROVIDERS: Admitting Provider Internal Medicine; Emergency Provider Emergency Medicine; Visit Provider Internal Medicine | DX: I42.1 Obstructive hypertrophic cardiomyopathy (principal); I27.20 Pulmonary hypertension, unspecified; I34.0 Nonrheumatic mitral (valve) insufficiency; I36.1 Nonrheumatic tricuspid (valve) insufficiency | CPT/HCPCS: 93306 ==

== ENCOUNTER → 2025-03-08 16:51 | Outpatient (BNV) | payer BC, MEDICARE, SELFPAY | PROVIDERS: Admitting Provider Internal Medicine; Emergency Provider Emergency Medicine; Visit Provider Internal Medicine Cardiovascular Disease | DX: I50.813 Acute on chronic right heart failure (principal); I48.0 Paroxysmal atrial fibrillation | CPT/HCPCS: 99233 ==

== ENCOUNTER → 2025-03-08 16:51 | Outpatient (BNV) | payer BC, MEDICARE, SELFPAY | PROVIDERS: Admitting Provider Internal Medicine; Emergency Provider Emergency Medicine; Visit Provider Internal Medicine | DX: I50.813 Acute on chronic right heart failure (principal) | CPT/HCPCS: 99232; 99233 ==

== ENCOUNTER 2025-05-01 17:07 | Emergency (ER) | payer BC, SELFPAY ==
--- OUTSIDE RECORDS SUMMARY | 2006-09-29 06:33 | XMS_ITS | Continuity of Care Document ---
Author Organization [facility] Address [address] [address] [place] [address] Phone Care Team Providers Care Solar Energy Advisor Name Role Phone Shaun FONSECA, Jaylen Unavailable [...] Date Provider Providers Copied on Encounter Eye [facility], [address] [address], [place], [place], [id number], tel:[phone] [facility] Patient dislikes glasses (chief complaint) No Information Shaun York. [address] [facility] [address], [place], [id number], [place]. tel:[phone] Family History Family Member Type Diagnosis Age At Onset Problem (finding) Family history of HBP Payers Payer name Insurance type Covered democrat ID Authoriza tion(s) No Information Social History [...]
--- NOTE | ~2025-05-01 | CT_ITS ---
CLINICAL HISTORY: left facial numbness x weeks CT head without contrast COMPARISON: None FINDINGS: No acute intracranial hemorrhage, extra-axial fluid collection, mass effect, or midline shift. Ventricular system and basilar cisterns are patent. Hicks-white matter differentiation is maintained. No gross orbital abnormality. No suspicious or acute bone lesion. Mastoid air cells and paranasal sinuses are predominantly clear. IMPRESSION: 1. No acute intracranial abnormality. This document has been electronically signed by: Alessio Horan MD on 05/01/2025 19:41:19
--- NOTE | ~2025-05-01 | CT_ITS ---
CLINICAL HISTORY: recurrent L sided body numbness. CT angiography head and neck with contrast. 3D Postprocessing. Comparison: None provided Findings: Standard three-vessel aortic arch anatomy. Widely patent origins of the arch branch vessels. Widely patent bilateral common carotid arteries. Mild rshz-rneaoro-nzhp-right carotid bifurcation atherosclerotic narrowing. No significant narrowing of the internal carotid arteries. Mild intraluminal irregularity of the proximal anterior middle cerebral artery branches consistent with atherosclerotic changes. Codominant and widely patent bilateral vertebral arteries. Normal V4 segments and basilar artery. Posterior cerebral arteries opacify normally. Nonenhancing 1.5 cm intermediate density mass in the right prepontine cistern abutting the dorsum sella and abutting the ventral margin of the lauryn is of uncertain etiology and clinical significance. This could potentially represent thrombosed aneurysm of the basilar artery or posterior communicating artery on the right, although this is not definitive. IMPRESSION: Nonspecific 1.5 cm intermediate density right prepontine mass could represent thrombosed aneurysm. There is no opacification to suggest contrast filling. Neoplasm such as a meningioma is also a potential differential consideration. Contrast-enhanced MRI brain recommended for further evaluation, unless previous imaging can demonstrate long-term stability. This document has been electronically signed by: Alessio Horan MD on 05/01/2025 23:24:11
[2025-05-01 17:15] VITALS: BP 148/92; PULSE 99; RESP 16; TEMP 37; O2SAT 98; BMI 26.6
--- NOTE | 2025-05-01 17:15 | ED.GENADULT ---
HPI - General Adult General Chief complaint: Neuro Symptoms/Deficit Stated complaint: ? stroke Time Seen by Provider: 05/01/25 19:17 Source: patient, family and old records reviewed Mode of arrival: ambulatory Limitations: no limitations History of Present Illness ED Provider: SUHAIL DEMPSEY narrative: 75 yo male with PMH of HTN, HLD, CAD, DM, afib on eliquis always compliant. He is moving here from [place] and had been driving up. On 04/19 he developed weakness/dizziness and found to have low BPs and elevated LFTs - they note he also had tingling in L side of his body on and off. His LFTs were in the thousands - they noted possibly due to meds or shock liver. He had negative MRI/MRA and CTA ?carotid artery stenosis. He is not sure. He has had the tingling since 04/19 but today it was much worse upon waking at 11am. He has no other symptoms such as motor weakness, facial droop, slurred speech. He has no trauma. He has had his statin and amiodarone held. MD complaint: l sided paresthesias Onset (ago): week(s) (since 04/19) Radiation: non-radiation Severity: mild Quality: other (tingling) Relieving factors: none Exacerbating factors: none Associated symptoms: denies other symptoms Treatments prior to arrival: none Related Data Home Medications ?Medication ?Instructions ?Recorded ?Confirmed albuterol sulfate 90 mcg/actuation 2 puff inhalation Q4-6H PRN 03/08/25 03/08/25 aerosol inhaler Shortness Of Breath Or Wheezing alogliptin 25 mg tablet 25 mg PO DAILY 03/08/25 03/10/25 atorvastatin 20 mg tablet 20 mg PO BEDTIME 03/08/25 03/08/25 bupropion HCl 150 mg tablet,12 hr 150 mg PO DAILY 03/08/25 03/08/25 sustained-release cetirizine 10 mg tablet 10 mg PO DAILY 03/08/25 03/10/25 cholecalciferol (vitamin D3) 50 50 mcg PO DAILY 03/08/25 03/08/25 mcg (2,000 unit) capsule (Vitamin D3) doxazosin 8 mg tablet 8 mg PO BEDTIME 03/08/25 03/10/25 empagliflozin 25 mg tablet 25 mg PO DAILY 03/08/25 03/08/25 (Jardiance) fenofibrate micronized 130 mg 130 mg PO DAILY 03/08/25 03/08/25 capsule fluticasone propionate 50 2 spray intranasal DAILY PRN 03/08/25 03/08/25 mcg/actuation nasal Allergy Symptoms spray,suspension gabapentin 400 mg capsule 400 mg PO BID 03/08/25 03/08/25 losartan 50 mg tablet 50 mg PO BID 03/08/25 03/08/25 metformin 500 mg tablet,extended 1,000 mg PO DAILY 03/08/25 03/08/25 release 24 hr metoprolol tartrate 50 mg tablet 50 mg PO BID 03/08/25 03/08/25 pantoprazole 40 mg tablet,delayed 40 mg PO BID 03/08/25 03/10/25 release semaglutide 1 mg/dose (4 mg/3 mL) 1 mg subcut FR 03/08/25 03/08/25 subcutaneous pen injector ([employer]) spironolactone 25 mg tablet 25 mg PO BID 03/08/25 03/10/25 tadalafil 5 mg tablet 5 mg PO DAILY 03/08/25 03/08/25 tamsulosin 0.4 mg capsule 0.4 mg PO DAILY 03/08/25 03/10/25 venlafaxine 75 mg capsule,extended 75 mg PO DAILY@199903/08/25 03/08/25 release 24 hr venlafaxine 75 mg capsule,extended 150 mg PO DAILY@0803/08/25 03/08/25 release 24 hr Previous Rx's ?Medication ?Instructions ?Recorded amiodarone 200 mg tablet 200 mg PO DAILY #42 tabs 03/12/25 apixaban 5 mg tablet (Eliquis) 5 mg PO BID #180 tabs 03/12/25 Allergies Allergy/AdvReac Type Severity Reaction Status Date / Time erythromycin base AdvReac Unknown Verified 05/01/25 17:24 lisinopril AdvReac Unknown Verified 05/01/25 17:24 Penicillins AdvReac Unknown Verified 05/01/25 17:24 Review of Systems Review of Systems: Constitutional : No Fever, No Chills, No Fatigue ENT/Mouth : No sore throat, No Rhinorrhea Eyes: No Eye Pain, No Swelling, No Redness Cardiovascular : No Chest Pain, No SOB, No Dyspnea on Exertion Respiratory : No Cough, No Sputum Gastrointestinal : No Nausea, No Vomiting, No Diarrhea, No abdominal Pain Genitourinary : No Dysuria, No Urinary Frequency, No Hematuria, Musculoskeletal : No joint pain, No Myalgias, No Joint Swelling Skin : No Skin Lesions, No rash Neuro : No Weakness, pos Numbness, No Dizziness, no Headache Psych : No Anxiety/Panic, No Depression All other systems reviewed and are negative [facility] Past Medical History Attestation statement: The following information was validated with the patient. Source: old records reviewed Medical History A-fib Mass, brain Sarcoidosis GERD (gastroesophageal reflux disease) Hyperlipidemia Type 2 diabetes mellitus CHF (congestive heart failure) Essential hypertension Social History Social History Household Members: None Housing: House Do you presently have visiting nurse or other home services: No Unable to assess alcohol history related to: Unknown Patient Tobacco Use Status: Never used Tobacco Use of substances other than those prescribed or required for medical reasons: No Advance Directives: No Advance Directives Information Provided: Yes service: Yes Physical Exam ED Vital Signs: Vital Signs - 24 hr 05/01/25 17:15 05/01/25 19:12 05/01/25 20:02 Temperature 98.6 F 97.8 F 97.4 F Pulse Rate 99 89 87 Respiratory Rate 16 16 24 H Blood Pressure 148/92 H 135/99 H 151/111 H Pulse Oximetry 98 96 96 Oxygen Delivery Method Room Air Room Air 05/01/25 21:43 05/01/25 22:12 Temperature 97.5 F 98.3 F Pulse Rate 97 93 Respiratory Rate 20 22 H Blood Pressure 155/109 H 149/115 H Pulse Oximetry 96 94 Oxygen Delivery Method Room Air Room Air BMI result Body Mass Index 26.6 Appearance: Alert. Oriented X3. No acute distress. Eyes: Pupils equal, round and reactive to light. ENT: Pharynx normal. Neck: Normal inspection. Neck supple. CVS: Normal heart rate and rhythm. Pulses normal. Respiratory: No respiratory distress. Breath sounds normal. Abdomen: Soft and nontender. Skin: Skin warm and dry. Normal skin color. Normal skin turgor. Extremities: No lower extremity edema. No calf ttp Neuro: Oriented X 3. No motor deficit. No sensory deficit. CN2-12 intact NIH Stroke Scale Internal: Initial- Upon Arrival Time: 17:16 Level of Consciousness: Alert Level of Consciousness Questions: Answers both questions correctly Level of Consciousness Commands: Performs both tasks correctly Best Gaze: Normal Visual: No visual loss Facial Palsy: Normal Motor Arm (Right): No drift Motor Arm (Left): No drift Motor Leg (Right): No drift Motor Leg (Left): No drift Limb Ataxia: Absent Sensory: Normal Best Language: No aphasia Dysarthia: Normal Extinction and Inattention: No abnormality Score: 0 Course Course Course Narrative: This is a rapid medical exam performed by Jack Heck NP: Additional HPI, ROS, PE not included below will be deferred to primary provider. 05/01/25 17:16 Patient is a 75-year-old male pmhx of MIx2, CHF, paroxysmal afib, HTN, HLD presenting to the ED with complaint of left sided facial and left arm numbness since end of March. Recently hospitalized in [place] on 04/19 while traveling back from [place], admitted for facial numbness and transaminitis, son states the MDs there were arguing about the cause, d/c'd on 04/22. Told possibly TIA? Plan: labs, CT head Medications Administered Discontinued Medications Generic Name Dose Route Start Last Admin Trade Name Freq PRN Reason Stop Dose Admin Iohexol 70 ml 05/01/25 21:52 05/01/25 21:53 Iohexol 350 Mg/Ml 100 Ml Infus..Btl IV 05/01/25 21:53 70 ml ONCE ONE Administration Medical Decision Making Medical Decision Making [facility] Narrative: 75 yo male with PMH of HTN, HLD, CAD, DM, afib on eliquis always compliant now here with c/o persistent tingling to L side but SILT intact and NIH 0 - he is compliant with his eliquis, today he felt it was much worse than baseline but no deficits on my exam. He already had MRI and MRA that was negative per family. At this time given possible stenosis of carotids I will obtain CTA for possible cause of his symptoms if no sig occlusion will continue eliquis and refer to vascular surgery/neurology Differential Diagnosis Differential Diagnoses: The differential diagnosis associated with the presentation includes paresthesis, carotid artery stenosis, post stroke symptoms Admission/Observation Consideration of admission/observation: Escalation of care including admission/observation considered suspect lesion is chronic tumor that he is aware of and needs to be monitored given eliquis use and no findings of neuro symptoms that are new he can be DC witn neuro follow up Lab Data MDM Lab Attestation statement: I reviewed the patient's lab results. 05/01/25 18:35 05/01/25 18:35 Labs: Lab Results 05/01/25 Range/Units 18:35 WBC 6.3 (4.8-10.8) X10*3/uL RBC 4.25 L (4.60-5.80) X10*6/uL Hgb 12.6 L (14.0-18.0) g/dl Hct 38.0 L (42.0-52.0) % MCV 89.4 (80.0-98.0) fL MCH 29.6 (27.0-33.0) pg MCHC 33.2 (31.0-36.0) g/dl RDW 15.7 (11.0-16.0) % Plt Count 213 (160-400) X10*3/uL MPV 11.1 (9.4-12.4) fL Immature Gran % (Auto) 0.2 (0.0-0.4) % Neut % (Auto) 58.8 (45-73) % Lymph % (Auto) 26.9 (20-40) % Orange % (Auto) 11.7 H (2-11) % Eos % (Auto) 1.6 (0-4) % Baso % (Auto) 0.8 (0-2) % Lymph # (Auto) 1.7 (1.2-4.9) X10*3/uL Orange # (Auto) 0.7 (0.1-1.2) X10*3/uL Eos # (Auto) 0.1 (0.0-0.4) X10*3/uL Baso # (Auto) 0.1 (0.0-0.2) X10*3/uL Abs Immat Gran (auto) 0.01 (0.00-0.03) X10*3/uL Absolute Neuts (auto) 3.7 (2.0-8.3) x10*3/uL Absolute Nucleated RBC 0.000 (0.0-0.012) X10*3/uL Nucleated RBC % (auto) 0.0 (0.0-0.2) /100WBC PT 24.1 H (10.9-12.4) SEC INR 2.1 H (0.9-1.1) Sodium 139 (135-145) mmol/L Potassium 4.4 (3.3-5.1) mmol/L Chloride 103 (96-108) mmol/L Carbon Dioxide 27 (22-29) mmol/L Anion Gap 13 (12-20) BUN 18 H (9-16) mg/dL Creatinine 1.22 (0.5-1.4) mg/dL Estim Creat Clear Calc 61.5 Estimated GFR 58 Random Glucose 129 H (60-115) mg/dL Calcium 9.8 (8.4-10.2) mg/dL Magnesium 1.8 (1.6-2.6) mg/dL Total Bilirubin 1.3 H (0.0-1.0) mg/dL AST 60 H (5-37) U/L ALT 236 H (0-40) U/L Alkaline Phosphatase 64 (39-117) U/L Total Protein 6.3 L (6.5-8.0) g/dL Albumin 4.0 (3.5-5.0) g/dL Independent Interpretation I performed an independent interpretation of an: CT Scan (no stenosis) Radiology Impression Discussion of test interpretation with radiology: I have reviewed the radiologist's reading. Independent Historian Clinical information obtained from an independent historian. History obtained from or confirmed by: Other External Record Review External record reviewed: Outpatient record Discharge Plan Discharge Clinical Impression: Paresthesia Patient Disposition: Home, Self-Care Instructions: Paresthesia (ED) Additional Instructions: AST 60 ALT [address] scans no acute findings, suspect chronic old mass please continue medications and follow up with neurology, return for any worsening symptoms or concerns. CLINICAL HISTORY: recurrent L sided body numbness. CT angiography head and neck with contrast. 3D Postprocessing. Comparison: None provided Findings: Standard three-vessel aortic arch anatomy. Widely patent origins of the arch branch vessels. Widely patent bilateral common carotid arteries. Mild [id number]-right carotid bifurcation atherosclerotic narrowing. No significant narrowing of the internal carotid arteries. Mild intraluminal irregularity of the proximal anterior middle cerebral artery branches consistent with atherosclerotic changes. Codominant and widely patent bilateral vertebral arteries. Normal V4 segments and basilar artery. Posterior cerebral arteries opacify normally. Nonenhancing 1.5 cm intermediate density mass in the right prepontine cistern abutting the dorsum sella and abutting the ventral margin of the lauryn is of uncertain etiology and clinical significance. This could potentially represent thrombosed aneurysm of the basilar artery or posterior communicating artery on the right, although this is not definitive. IMPRESSION: Nonspecific 1.5 cm intermediate density right prepontine mass could represent thrombosed aneurysm. There is no opacification to suggest contrast filling. Neoplasm such as a meningioma is also a potential differential consideration. Contrast-enhanced MRI brain recommended for further evaluation, unless previous imaging can demonstrate long-term stability. Prescriptions: No Action losartan 50 mg tablet 50 mg PO BID bupropion HCl 150 mg tablet sustained-release 12 hr 150 mg PO DAILY venlafaxine 75 mg capsule,extended release 24hr 150 mg PO DAILY@0800 atorvastatin 20 mg tablet 20 mg PO BEDTIME gabapentin 400 mg capsule 400 mg PO BID pantoprazole 40 mg tablet,delayed release (DR/EC) 40 mg PO BID metoprolol tartrate 50 mg tablet 50 mg PO BID albuterol sulfate 90 mcg/actuation HFA aerosol inhaler 2 puff inhalation Q4-6H PRN (Reason: Shortness Of Breath Or Wheezing) fluticasone propionate 50 mcg/actuation spray,suspension 2 spray intranasal DAILY PRN (Reason: Allergy Symptoms) metformin 500 mg tablet extended release 24 hr 1,000 mg PO DAILY tadalafil 5 mg tablet 5 mg PO DAILY fenofibrate micronized 130 mg capsule 130 mg PO DAILY Jardiance 25 mg tablet 25 mg PO DAILY Ozempic 1 mg/dose (4 mg/3 mL) pen injector 1 mg SUBCUT FR venlafaxine 75 mg capsule,extended release 24hr 75 mg PO DAILY@2000 cetirizine 10 mg Tablet 10 mg PO DAILY spironolactone 25 mg Tablet 25 mg PO BID doxazosin 8 mg Tablet 8 mg PO BEDTIME tamsulosin 0.4 mg Capsule 0.4 mg PO DAILY cholecalciferol (vitamin D3) [Vitamin D3] 50 mcg (2,000 unit) Capsule 50 mcg PO DAILY alogliptin 25 mg Tablet 25 mg PO DAILY Eliquis 5 mg Tablet 5 mg PO BID Qty: 180 0RF amiodarone 200 mg Tablet 200 mg PO DAILY Qty: 42 0RF Rx Instructions: Take 400 mg daily for 2 weeks then 200 mg daily Referrals: [facility] [Provider Group] Print Language: Scottish
[2025-05-01 18:38] LABS: MANUAL DIFF FLAG NO
[2025-05-01 18:40] LABS: Hematocrit 38.0 % (42.0-52.0); Hemoglobin 12.6 g/dl (14.0-18.0); Imm Gran Abs Auto 0.01 X10*3/uL (0.00-0.03); Imm Gran Pct Auto 0.2 % (0.0-0.4); Lymphocytes Absolute Auto 1.7 X10*3/uL (1.2-4.9); Mean Corpuscular HGB Conc 33.2 g/dl (31.0-36.0); Mean Corpuscular Hemoglobin 29.6 pg (27.0-33.0); Mean Corpuscular Volume 89.4 fL (80.0-98.0); NRBC Abs Auto 0.000 X10*3/uL (0.0-0.012); NRBC Pct Auto 0.0 /100WBC (0.0-0.2); Platelet Count 213 X10*3/uL (160-400); Red Blood Count 4.25 X10*6/uL (4.60-5.80); White Blood Count 6.3 X10*3/uL (4.8-10.8)
[2025-05-01 18:54] LABS: INTERNATIONAL NORM RATIO 2.1 (0.9-1.1); Prothrombin Time 24.1 SEC (10.9-12.4)
--- OUTSIDE RECORDS SUMMARY | 2025-05-01 18:56 | XMS_ITS | Clinical Summary ---
Author Organization [facility] Address [address] [place] [address] Phone Care Team Providers Care Order Processor Name Role Phone Pcp, Unknown Primary Care Provider Unavailabl e Social History Tobacco Use Types Packs/Day Years Used Date Smoking Tobacco: Never Assessed Education Answer Date Recorded Are you interested in more education? Not on caterina e 04/30/2025 Are you concerned about learning? Not on file 04/30/2025 No 04/30/2025 No 04/30/2025 Digital Access Answer Date Recorded No 04/30/2025 No 04/30/2025 Reliable internet access at home? Not on file 04/30/2025 Device with a working camera? Not on file Sex and Gender Information Value Date Recorded Sex Assigned at Not on file Legal Sex Male 2:58 PM EDT Gender Identity Not on file Sexual Orientation Not on file Plan of Treatment Upcoming Encounters Date Type Department Care Team (Late st Contact Info) Description 09/24/2025 1:00 PM EST Office Visit [facility] [address] [place] [address] Merle Garces MD [address], [address] [place] [address] [email or web address] Maintenance Due Date Last Done Comments Adult Td,Tdap Booster 1950 LIPID PANEL 1949 DEPRESSION SCREENING 1961 SMOKING Hx and SMOKELESS TOB ACCO SCREENING 1962 HEPATITIS C SCREENING 1967 PNEUMOCOCCAL VACCINES (50+ y ears) (1 of 1 - PCV) 1999 ZOSTER VACCINES (1 of 2) 1999 RSV VACCINE (1 - 1-dose 75+ series) 2024 INFLUENZA VACCINE (#1) 2025 COVID-19 VACCINE (1 - 2023-2 5 season) 2025 HEPATITIS A VACCINES Aged Out No long er eligible based on patient's age to complete this topic HIB VACCINES Aged Out No longer eligi ble based on patient's age to complete this topic MENINGOCOCCAL VACCINES (ACWY) Aged Out No longer eligible based on patient's age to complete this topic MENINGOCOCCAL VACCINES (B) Aged Out N o longer eligible based on patient's age to complete this topic Medical Devices Not on file Insurance [facility] MEDICARE A BLUE CROSS FEDERAL MEDICARE A [facility] MEDICARE A [facility] MEDICARE A [facility] MEDICARE A [facility] FEDERAL MEDICARE A Care Teams Order Processor Relationship Specialty Start Date End Date Pcp, Unknown PCP - General 04/29/25 Additional Source Comments The information contained in this document represents components of the legal health record. It is not the complete legal health record.[facility]
--- OUTSIDE RECORDS SUMMARY | 2025-05-01 18:56 | XMS_ITS | Clinical Summary ---
Author Organization [facility] Address [address], [place] [address] Phone Care Team Providers Care Risk Control Field Representative Name Role Phone Unavailable Primary Care Provider Unavailabl e Allergies Active Allergy Reactions Criticality Noted Date Comments Erythromycin 04/06/2018 Other Reaction(s): Not available, Unknown Lisinopril 05/16/2024 Other Reaction(s): Not available Penicillins 04/06/2018 Other Reaction(s): Unknown Medications albuterol (ProAir HFA) 108 (90 Base) MCG/ACT inhaler Acti ve alogliptin (Nesina) 25 MG tablet Active amiodarone (Pacerone) 200 MG tablet Take 1 tablet every day by oral route as directed for 90 days, for Atrial Fibrillation. 4 Active amLODIPine (Norvasc) 10 MG tablet Take 1 tablet by mouth in the morning. Active atorvastatin (Lipitor) 40 MG tablet Take 40 mg by mouth in the morning. Active buPROPion SR (Wellbutrin SR) 100 MG 12 hr tablet Take by mouth in the morning. Active cetirizine (ZyrTEC ALLERGY) 10 MG tablet Take 1 tablet by mouth in the morning. Active choline fenofibrate (Trilipix) [address] capsule Take by mouth in the morning. Active clopidogrel (Plavix) 75 MG tablet Take 1 tablet by mouth in the morning. 2 Active doxazosin (Cardura) 8 MG tablet Active empagliflozin (Jardiance) 25 MG Active fluticasone (Flonase) 50 MCG/ACT nasal spray Active gabapentin (Neurontin) 400 MG capsule Active ibuprofen 400 MG tablet Active lidocaine (Lidoderm) 5 % patch Active losartan (Cozaar) 100 MG tablet Take 1 tablet by mouth in the morning. Active metoprolol succinate XL (Toprol-XL) 50 MG 24 hr tablet Take 100 mg by mouth in the morning. Active Mirabegron ER (Myrbetriq) 50 MG tablet sustained-releas e 24 hour Active metFORMIN XR (Glucophage-XR) 500 MG 24 hr tablet Take 1,000 mg by mouth with evening meal. Active pantoprazole (ProtoNix) 40 MG EC tablet Take 40 mg by mouth in the morning and at bedtime. Active Semaglutide, 1 MG/DOSE, (Ozempic, 1 MG/DOSE,) 4 MG/3ML solution pen-injector Active venlafaxine XR (Effexor-XR) 75 MG 24 hr capsule Act ella spironolactone (Aldactone) 25 MG tablet Active Active Problems Problem Noted Date Diagnosed Date Abnormal EKG 05/16/2024 CAD in osage artery 05/16/2024 Type 2 diabetes mellitus without complication Atherosclerosis of coronary artery without angin a pectoris 07/02/2023 Stented coronary artery 07/02/2023 Mixed hyperlipidemia 01/27/2023 Essential hypertension 07/17/2022 Obstructive sleep apnea syndrome 07/17/2022 Paroxysmal atrial fibrillation 07/17/2022 Chronic lung disease 04/06/2022 Moderate mitral regurgitation 04/06/2022 Chest pain 09/23/2020 Myocardial infarction 09/23/2020 Encounters Date Type Department Care Team Description 04/02/2025 Telephone [facility]ly [facility] [address] [place] [phone] Marian Holland from Last 3 Months Immunizations Immunization Administration Dates Next Due Influenza, Unspecified 05/28/2021 Influenza, quadrivalent, adjuvanted 06/28/2022 Pneumococcal Conjugate, Unspecified 08/28/2020 Pneumococcal Polysaccharide PPV23 04/06/2017 Sars-cov-2, Unspecified 05/28/2021,08/28/2020 Social History Tobacco Use Types Packs/Day Years Used Date Smoking Tobacco: Never Smokeless Tobacco: Never Tobacco Cessation:Counseling Given: No Alcohol Use Standard Drinks/Week Comments Not Currently 0 (1 standard drink = 0.6 oz pur e alcohol) PHQ-2 Answer Date Recorded PHQ-2 Score 0 05/16/2024 Sex and Gender Information Value Date Recorded Sex Assigned at Not on file Legal Sex Male 12:19 PM CDT Gender Identity Not on file Sexual Orientation Not on file Last Filed Vital Signs Vital Sign Reading Time Taken Comments Blood Pressure - - Pulse 62 05/16/2024 12:26 PM CDT Temperature 36.6 C (97.8 F) 05/16/2024 12:26 PM CDT Respiratory Rate 16 05/16/2024 12:2 6 PM CDT Oxygen Saturation 93% 05/16/2024 12: 26 PM CDT Inhaled Oxygen Concentration - - Weight 103.1 kg (227 lb 6.4 oz) 024 12:26 PM CDT Height 185.4 cm (6' 1 ) 05/16/2024 12:2 6 PM CDT Body Mass Index 30 05/16/2024 12:26 PM CDT Plan of Treatment Health Maintenance Due Date Last Done Comments Lipid Panel 1950 TSH Level 1949 DTaP/Tdap/Td Vaccines (1 - Tdap) 1956 Diabetes: Dental Exam 1959 Diabetes: Foot Exam 1959 Diabetes: Retinopathy Screening 1959 Hepatitis C Screening 1967 Diabetes: Urine Protein Screening 1968 Zoster Vaccines (1 of 2) 1999 Pneumococcal Vaccine: 50+ Years (2 of 2 - PCV) 08/28/2021 08/28/2020, 04/06/2017 Pneumococcal Vaccine: Pediatrics (0 to 5 Years) and At-Risk Patients (6 to 64 Years) (2 of 2 - PCV) 08/28/2021 08/28/2020, 04/06/2017 RSV Vaccine: or Age 60+ Years (1 - 1-dose 75+ series) 2024 COVID-19 Vaccine (3 - 2023-2 5 season) 2024 05/28/2021, 08/28/2020 Influenza Vaccine (#1) 2025 2, 05/28/2021 Yearly Depression Screening 05/16/2025 05/16/2024 HPV Vaccines Aged Out No longer eligi ble based on patient's age to complete this topic Hepatitis B Vaccines Aged Out No long er eligible based on patient's age to complete this topic RSV Vaccine Pediatric Aged Out No oscar tabitha eligible based on patient's age to complete this topic [place] [facility]
--- OUTSIDE RECORDS SUMMARY | 2025-05-01 18:56 | XMS_ITS | Encounter Summary ---
Author Organization [facility] Address [address] [place] [address] Care Team Providers Care Electronic Specialist Name Role Phone Unavailable Primary Care Provider Unavailabl e Encounter Details Date Type Department Care Team (Late st Contact Info) Description 05/17/2021 Lab Requisition [facility] [place] [address] 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 Gender Identity Not on file Sexual Orientation Not on file documented as of this encounter Plan of Treatment Not on file documented as of this encounter Procedures Procedure Name Priority Date/Time Associated Diagnosis Comments PATHOLOGY Routine 05/17/2021 10:00 AM CDT documented in this encounter Results * PATHOLOGY (05/17/2021 10:00 AM CDT) CASE REPORT Surgical Pathology Report Case: [id number] Authorizing Provider: Tomás Alamo PA Collected: 05/17/2021 10:00 AM Ordering Location: [facility] Received: 05/17/2021 12:52 PM Services [place] Pathologist: Dipak Perera MD Specimens: A) - Forearm, right, LIPOMA [id number] [id number] B) - Shoulder, left, SEBACEOUS CYST 05/18/2021 10:22 AM CDT [facility] FINAL DIAGNOSIS A. Soft tissue, right forearm, excision- Angiolipoma B. Skin, left shoulder, excision- Epidermal inclusion cyst 05/18/2021 10:22 AM [facility] Verified by Dipak Perera MD [...] material. RSS 1. KM 05/18/2021 10:22 AM [facility] OPERATIVE PROCEDURE A. [id number] B. [id number] 05/18/2021 10:22 AM [facility] CLINICAL INFORMATION No Dx found. 05/18/2021 10:22 AM [facility] COMMENT [facility] Surgical cases might have been signed out in the following labs: [facility], CLIA#[id number] , [address], [place] [address] [facility], CLIA# [id number], [address] [place] [address] 05/18/2021 10:22 AM [facility] Tissue (Forearm, right) 05/17/2021 10:00 AM CDT 05/17/2021 12:52 PM CDT Tissue specimen (specimen) (Shoulder, left) 05/17/2021 10:22 AM CDT 05/17/2021 12:52 PM CDT Tomás [facility] PATHOLOGY/CYTOLOGY ORDERABLES F inal Result [facility] CLIA# [id number] [address] [place] [address] documented in this encounter Visit Diagnoses Not on filedocumented in this encounter
--- OUTSIDE RECORDS SUMMARY | 2025-05-01 18:56 | XMS_ITS | Encounter Summary ---
Author Organization [facility] Address 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
--- OUTSIDE RECORDS SUMMARY | 2025-05-01 18:56 | XMS_ITS | Clinical Summary ---
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
[2025-05-01 19:12] VITALS: BP 135/99; PULSE 89; RESP 16; TEMP 36.6; O2SAT 96
[2025-05-01 19:19] LABS: Alanine Aminotransferase 236 U/L (0-40); Albumin Level 4.0 g/dL (3.5-5.0); Alkaline Phosphatase 64 U/L (39-117); Anion Gap 13 (12-20); Aspartate Amino Transferase 60 U/L (5-37); Blood Urea Nitrogen 18 mg/dL (9-16); Calcium 9.8 mg/dL (8.4-10.2); Carbon Dioxide 27 mmol/L (22-29); Chloride 103 mmol/L (96-108); Creatinine Clr Calc Pharmacy 61.5; Estimated Glomerular Filt Rate 58; Magnesium 1.8 mg/dL (1.6-2.6); Potassium 4.4 mmol/L (3.3-5.1); Sodium 139 mmol/L (135-145); Total Protein 6.3 g/dL (6.5-8.0)
[2025-05-01 20:02] VITALS: BP 151/111; PULSE 87; RESP 24; TEMP 36.3; O2SAT 96
[2025-05-01 21:43] VITALS: BP 155/109; PULSE 97; RESP 20; TEMP 36.4; O2SAT 96
[2025-05-01] MEDS: iohexoL 350 MG/ML 100 ML INFUS..BTL 70 ML IV (21:53)
[2025-05-01 22:12] VITALS: BP 149/115; PULSE 93; RESP 22; TEMP 36.8; O2SAT 94
[2025-05-02 00:07] VITALS: BP 147/111; PULSE 96; RESP 24; TEMP 36.4; O2SAT 96
== END 2025-05-02 00:08 | disposition home or self-care (01) ==
PROVIDERS: Registered Nurse Emergency; Emergency Provider Emergency Medicine
DX: R20.2 Paresthesia of skin (principal); I25.10 Atherosclerotic heart disease of native coronary artery without angina pectoris; I48.91 Unspecified atrial fibrillation; R20.0 Anesthesia of skin; R51.9 Headache, unspecified; Z79.01 Long term (current) use of anticoagulants; Z79.899 Other long term (current) drug therapy
CPT/HCPCS: 36415; 70450; 70496; 70498; 80053; 83735; 85025; 85610; 99284; 99285; Q9967

== ENCOUNTER → 2025-05-01 17:26 | Outpatient (BNV) | payer BC, SELFPAY | PROVIDERS: Emergency Provider Emergency Medicine; Visit Provider Radiology Diagnostic Radiology | DX: R20.2 Paresthesia of skin (principal) | CPT/HCPCS: 70450 ==

== ENCOUNTER 2025-05-02 12:54 | Outpatient (AMB) | payer BC, SELFPAY ==
--- OUTSIDE RECORDS SUMMARY | 2006-09-29 06:33 | XMS_ITS | Continuity of Care Document ---
Author Organization [facility] Address [address] [address] [place] [address] Phone Care Team Providers Care Veneer Lathe Operator Name Role Phone Shaun FONSECA, Jaylen Unavailable [...] Date Provider Providers Copied on Encounter Eye [facility], [address] [address], [place], [place], [id number], tel:[phone] [facility] Patient dislikes glasses (chief complaint) No Information Shaun oYrk. [address] [facility] [address], [place], [id number], [place]. tel:[phone] Family History Family Member Type Diagnosis Age [...]
--- NOTE | 2025-05-02 13:07 | A.OFFVIS_ITS ---
Vital Signs 05/02/25 13:08 Height 6 ft 3 in Weight 211 lb 10.3 oz BMI 26.5 BP 120/62 Blood Pressure Location Lt brachial Position Sitting Pulse 104 H Pulse Source Monitor Intake Visit Reasons: [facility]-Cardioversion Follow up Allergies erythromycin base Adverse Reaction (Verified 05/01/25 17:24) Unknown lisinopril Adverse Reaction (Verified 05/01/25 17:24) Unknown Penicillins Adverse Reaction (Verified 05/01/25 17:24) Unknown Medication List - Last Reconciled 05/02/25 by Angel Couch NP albuterol sulfate 90 mcg/actuation 2 puffs inhalation Q4-6H PRN apixaban (Eliquis) 5 mg PO BID aspirin 81 mg PO DAILY bupropion HCl SR 150 mg PO DAILY cetirizine 10 mg PO DAILY cholecalciferol (vitamin D3) (Vitamin D3) 50 mcg PO DAILY empagliflozin (Jardiance) 25 mg PO DAILY furosemide (Lasix) 20 mg PO DAILY gabapentin 400 mg PO BID hydralazine 10 mg PO BID losartan 50 mg PO BID metformin ER 500 mg PO DAILY metoprolol tartrate 25 mg PO BID semaglutide (Ozempic) 1 mg subcut FR tamsulosin 0.4 mg PO DAILY venlafaxine ER 150 mg PO DAILY@0800 venlafaxine ER 75 mg PO DAILY@2000 HPI Comments Details: This is a 75-year-old male patient coming in for a hospital discharge follow-up, accompanied by son. Patient was visiting from [place] and had come in to the emergency room for shortness of breath and was noted to be in AFib. Patient was started on Eliquis and was diuresed with Lasix for heart failure. Later patient returned again with shortness of breath, and chest pain. Patient states that he does follow Cardiology at [place] and has a significant history including coronary artery disease status post PCI x3, AFib many years ago where patient was on Eliquis which patient has stopped for unclear reasons. Patient also notes that he was on amiodarone but is unsure if he was continuously taking this or not. Patient underwent a MICKEY cardioversion where patient has converted back to sinus rhythm and was recommended to increase his amiodarone dose to 400 daily and was requested to follow up with his primary central control room operator in [place] about AFib management. Patient states that when he returned to [place] he was not feeling well and went to the emergency room there where he was noted to be back in AFib and with very elevated LFTs- patient states ALT as high as in the 3000. Patient states that his liver specialist thinks this was due to his AFib but his hospitalist discontinued his amiodarone and atorvastatin. Patient is now planning to move to this area and would like to establish care at this office. Patient states that since his return he had intermittent numbness on on his left side of the body for which patient had gone to the ER here. Patient had also contacted his neurologist back at home as patient reports he has a brain mass which is also noted on his recent CTA of the head and neck. Since he is newly moved here, patient has not established care with any specialist. Patient also notes terry he has severe sleep apnea for which he wears a CPAP nasal mask but is unsure if it is therapeutic. Patient is continuing to report some fatigue and intermittent shortness of breath otherwise denies any exertional chest pain, dizziness, orthopnea, PND, leg edema, presyncope, or syncope. Patient is reporting compliance with all his medications. We currently have no records of anything set above in regards to his visit in the ER at [place] or his records from primary central control room operator. [facility] Medical History Essential hypertension A-fib Mass, brain Sarcoidosis GERD (gastroesophageal reflux disease) Hyperlipidemia Type 2 diabetes mellitus CHF (congestive heart failure) Social History Household Members: None Housing: House Do you presently have visiting nurse or other home services: No Unable to assess alcohol history related to: Unknown Patient Tobacco Use Status: Never used Tobacco service: Yes Review of Systems Const Denies weakness ENT Denies dizziness Card Denies chest pain, Denies chest pain with activity, Denies syncope, Denies rapid heart rate, Denies pedal edema, Denies edema, Denies leg edema, Denies lightheadedness, Denies palpitations, Denies dyspnea, Denies dyspnea on exertion and Denies orthopnea Resp Denies cough, Denies dyspnea and Denies dyspnea on exertion GI Denies hematochezia and Denies change in stool character Musc Denies abnormal gait, Denies muscle cramps, Denies muscle weakness, Denies numbness, Denies radiating pain into limb and Denies tingling Neuro Denies abnormal gait, Denies dizziness, Denies syncope, Denies numbness, Denies tingling and Denies weakness Endo Denies palpitations Physical Exam Vital Signs: Last Vital Signs Pulse 104 H 05/02/25 13:08 BP 120/62 05/02/25 13:08 BMI result Body Mass Index 26.5 Const General: cooperative, healthy appearing, comfortable and no acute distress Orientation/consciousness: patient oriented x3 HEENT Head: Yes normal to inspection Neck Neck: Yes normal visual inspection, Yes trachea midline and Yes supple Chest Chest palpation & inspection: normal inspection of the chest Resp Effort & Inspection: normal respiratory effort Auscultation: clear to auscultation bilaterally, no crackles, no rales, no rhonchi and no wheezes Cardio Jugular venous distension: no JVD Palpation: normal PMI Rate: tachycardic Rhythm: abnormal rhythm irregularly irregular Heart sounds: S1 normal heart sound present, S2 normal heart sound present, no click, no gallops, no murmurs and no rubs Peripheral pulses: Peripheral pulses 2+ throughout GI Inspection: Yes normal to inspection Palpation (GI): Soft to palpation Auscultation: normal bowel sounds Skin General skin exam: no rashes or lesions noted Neuro General: patient oriented x3 Extrem General: Yes normal to inspection, No no pedal edema and No calf tenderness Psych Appearance: grossly normal Mental Status: mental status grossly normal Speech and movement: Normal speech and movement present Office Procedures EKG Details: EKG today showed atrial fibrillation with rate 104 beats per minute, right bundle branch block, nonspecific [place]-T, [place]. [id number]-[id number], Complete Assessment & Plan Assessment & Plan (1) A-fib: Code(s): I48.91 - Unspecified atrial fibrillation Category: Medical Qualifiers: Atrial fibrillation type: paroxysmal Qualified Code(s): I48.0 - Paroxysmal atrial fibrillation Plan: EKG today shows patient is back in AFib. Patient had undergone MICKEY cardioversion once in the hospital with Dr. Doan on 03/11/2025 where patient had successful conversion to sinus rhythm. Per patient, patient's amiodarone and atorvastatin was stopped at his admission at [place] about a month ago when he had elevated LFTs. His LFTs at the recent ER visit is elevated however patient states that this is improved significantly from his hospital visit at [place]. 03/10/2025-echo study showed mildly decreased LV systolic function with an ejection fraction at 45% with akinetic basal inferior and mid inferior segments, and rgcm-zg-fiuiqoor mitral valve regurgitation. Given his ongoing symptoms of shortness of breath, fatigue we will trial patient back on amiodarone with close monitoring of his LFTs. Patient will repeat labs in 1 week of being on amiodarone and 2 weeks with the nurse for an EKG. Continue Eliquis for full anticoagulation therapy. No reported signs of bleeding or falls. We will start his process of being seen by speedometer mechanic for a possible catheter ablation. The procedure along with its indications, risks, benefits was discussed with the patient and his son and they are in agreement of being seen by the EP. In the meantime, we will continue to work on retrieving records from his previous central control room operator. Continue metoprolol for rate control. (2) CAD (coronary artery disease): Code(s): I25.10 - Atherosclerotic heart disease of [place] coronary artery without angina pectoris Category: Medical Plan: Patient reports significant coronary artery disease with 3 heart attacks in the past with stents placed each time. Patient is on aspirin for this. For now, patient can continue this however since patient is on Eliquis, we can think of discontinuing this. Patient states that he was on atorvastatin however this was discontinued due to recent elevated LFTs. We will get a lipid profile and we will closely monitor his labs. Ideally, LDL goal should be less than 70. (3) Essential hypertension: Code(s): I10 - Essential (primary) hypertension Category: Medical Plan: Blood pressure today is within normal limits. Continue with current regimen for blood pressure with a an ideal blood pressure goal of less than 130/80. Advised monitoring blood pressures at home and maintaining a log of it. (4) Hyperlipidemia: Code(s): E78.5 - Hyperlipidemia, unspecified Category: Medical Plan: As above. (5) Mass, brain: Comment: F/U as an outpatient with neurosurgeon in [place] Code(s): G93.89 - Other specified disorders of brain Category: Medical Plan: Referral placed for neurology. Patient will get his records from neurologist in [place]. (6) TEA (obstructive sleep apnea): Code(s): G47.33 - Obstructive sleep apnea (adult) (pediatric) Category: Medical Plan: Referral placed to pulmonology for the management of this. Continue CPAP ther apy. (7) Hospital discharge follow-up: Code(s): Z09 - Encounter for follow-up examination after completed treatment for conditions other than malignant neoplasm Plan: As above. Patient understands that we will plan on retrieving all his records from his central control room operator at [place]. Further plans based on findings. In the meantime, advised heart healthy diet, exercise as tolerated, med compliance, and management of vascular risk factors. Advised to complete his labs for close monitoring LFTs. Patient understanding of the plan. In the interim, patient will call the office with any concerns or change in symptoms. This note was generated using voice recognition software. While every effort has been made to ensure accuracy and proper animal husbandry teacher, there may be occasional errors that could affect the content or meaning of the described symptoms. Orders: Orders Lipid Panel 05/02/25 I25.10 - Atherosclerotic heart disease of [place] coronary artery without angina pectoris Liver Panel 05/02/25 I48.0 - Paroxysmal atrial fibrillation Complete Blood Count no Diff 05/02/25 I48.0 - Paroxysmal atrial fibrillation Basic Metabolic Panel 05/02/25 I48.0 - Paroxysmal atrial fibrillation AMB EKG-In Office 05/02/25 I48.0 - Paroxysmal atrial fibrillation Referrals Cardiac Electrophysiology Referral I48.0 - Paroxysmal atrial fibrillation Pulmonology Referral G47.33 - Obstructive sleep apnea (adult) (pediatric), R91.1 - Solitary pulmonary nodule Neurology Referral G93.89 - Other specified disorders of brain, R20.2 - Paresthesia of skin Medications: New amiodarone 400 mg twice daily for 2 weeks followed by 200 mg daily 200 mg PO BID 90 tabs 3RF metoprolol succinate ER 50 mg PO DAILY 90 tabs 3RF Discontinued amiodarone Take 400 mg daily for 2 weeks then 200 mg daily Discontinued Reason: Patient no longer taking 200 mg PO DAILY 42 tabs 0RF Coding Level of Care Code Est Pt Level 5 (42917) Complex EM visit Add On G2211 Diagnoses A-fib I48.0 Atrial fibrillation type: paroxysmal CAD (coronary artery disease) I25.10 Essential hypertension I10 Hyperlipidemia E78.5 Mass, brain G93.89 TEA (obstructive sleep apnea) G47.33 Hospital discharge follow-up Z09 CPT Codes EKG - CPT: 18740-[id number], Complete ([id number]) Time Spent (min) 41 Comment Time spent in reviewing the chart, test results, assessment, counseling and documentation.
[2025-05-02 13:08] VITALS: BP 120/62; PULSE 104; BMI 26.5
--- OUTSIDE RECORDS SUMMARY | 2025-05-02 13:09 | XMS_ITS | Clinical Summary ---
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
--- OUTSIDE RECORDS SUMMARY | 2025-05-02 13:09 | XMS_ITS | Clinical Summary ---
Author Organization [facility] Address [address], [place] [address] Phone Care Team Providers Care Rental Representative Name Role Phone Unavailable Primary Care [...] Diagnosed Date Abnormal EKG 05/16/2024 CAD in telida artery 05/16/2024 Type 2 diabetes mellitus without complication Atherosclerosis of coronary artery without angin a pectoris 07/02/2023 Stented coronary artery 07/02/2023 Mixed hyperlipidemia 01/27/2023 Essential hypertension 07/17/2022 Obstructive sleep apnea syndrome 07/17/2022 Paroxysmal atrial fibrillation 07/17/2022 Chronic lung disease 04/06/2022 Moderate mitral regurgitation 04/06/2022 Chest pain 09/23/2020 Myocardial infarction 09/23/2020 Encounters Date Type Department Care Team Description 04/02/2025 Telephone [facility] [address] [facility] [address] [place] [phone] Marian Holland from Last 3 Months Immunizations [...] age to complete this topic Insurance [facility] Address[facility] [address] [place] [address] [facility] Address: [address] [place] [address]
--- OUTSIDE RECORDS SUMMARY | 2025-05-02 13:09 | XMS_ITS | Encounter Summary ---
Author Organization [facility] Address [address] [place] [address] Care Team Providers Care Miller Apprentice Name Role Phone Unavailable Primary Care Provider Unavailabl e Encounter Details Date Type Department Care Team (Late st Contact Info) Description 05/17/[address] [facility] [place] [address] 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 Gender Identity Not on file Sexual Orientation Not on file documented as of this encounter Plan of Treatment Not on file documented as of this encounter Procedures Procedure Name Priority Date/Time Associated Diagnosis Comments PATHOLOGY Routine 05/17/2021 10:00 AM CDT documented in this encounter Results * PATHOLOGY (05/17/2021 10:00 AM CDT) CASE REPORT Surgical Pathology Report Case: [id number] Authorizing Provider: Tomás Alamo PA Collected: 05/17/2021 10:00 AM Ordering Location: [facility] Received: 05/17/2021 12:52 PM Services [place] Pathologist: Dipak Perera MD Specimens: A) - Forearm, right, LIPOMA HRCN [id number] B) - Shoulder, left, SEBACEOUS CYST 05/18/2021 10:22 AM CDT [facility] FINAL DIAGNOSIS A. Soft tissue, right forearm, excision- Angiolipoma B. Skin, left shoulder, excision- Epidermal inclusion cyst 05/18/2021 10:22 AM [facility] Verified by Dipak Perera MD [...] material. RSS 1. KM 05/18/2021 10:22 AM [facility] OPERATIVE PROCEDURE A. [id number] B. [id number] 05/18/2021 10:22 AM [facility] CLINICAL INFORMATION No Dx found. 05/18/2021 10:22 AM [facility] COMMENT [facility] Surgical cases might have been signed out in the following labs: [facility] CLIA#[id number] , [address], [place] [address] [facility], CLIA# [id number], [address] [place] [address] 05/18/2021 10:22 AM [facility] Tissue (Forearm, right) 05/17/2021 10:00 AM CDT 05/17/2021 12:52 PM CDT Tissue specimen (specimen) (Shoulder, left) 05/17/2021 10:22 AM CDT 05/17/2021 12:52 PM CDT Tomás [facility] PATHOLOGY/CYTOLOGY ORDERABLES F inal Result [facility] CLIA# [id number] [address] [place] [address] documented in this encounter Visit Diagnoses Not on filedocumented in this encounter
--- OUTSIDE RECORDS SUMMARY | 2025-05-02 13:09 | XMS_ITS | Clinical Summary ---
Author Organization [facility] Address [address] [place] [address] Phone Care Team Providers Care Broodmare Barn Groom Name Role Phone Pcp, Unknown Primary Care [...] Description 09/24/2025 1:00 PM EST Office Visit [facility] [address] [place] [address] Merle Garces MD [address], [address] [place] [address] [email or web address] Due Date Last Done Comments [...] topic Medical Devices Not on file Insurance [facility] MEDICARE A BLUE CROSS FEDERAL MEDICARE A [facility] MEDICARE A [facility] MEDICARE A [facility] MEDICARE A [facility] FEDERAL MEDICARE A Care Teams Broodmare Barn Groom Relationship Specialty Start Date End Date Pcp, Unknown PCP - General 04/29/25 Additional Source Comments The information contained in this document represents components of the legal health record. It is not the complete legal health record.[facility]
--- OUTSIDE RECORDS SUMMARY | 2025-05-02 13:09 | XMS_ITS | Encounter Summary ---
Author Organization [facility] Address 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
== END 2025-05-02 14:03 | disposition home or self-care (01) ==
LOC: HO.HCS 12:55
DX: I48.0 Paroxysmal atrial fibrillation (principal); I25.10 Atherosclerotic heart disease of native coronary artery without angina pectoris; I10 Essential (primary) hypertension; E78.5 Hyperlipidemia, unspecified; G93.89 Other specified disorders of brain; G47.33 Obstructive sleep apnea (adult) (pediatric); Z09 Encounter for follow-up examination after completed treatment for conditions other than malignant neoplasm
CPT/HCPCS: 99215

== ENCOUNTER → 2025-05-02 12:54 | Outpatient (BNVA) | payer BC, SELFPAY | DX: Z09 Encounter for follow-up examination after completed treatment for conditions other than malignant neoplasm (principal); I48.0 Paroxysmal atrial fibrillation; I45.10 Unspecified right bundle-branch block; I25.10 Atherosclerotic heart disease of native coronary artery without angina pectoris; I10 Essential (primary) hypertension; E78.5 Hyperlipidemia, unspecified; G93.89 Other specified disorders of brain; G47.33 Obstructive sleep apnea (adult) (pediatric) | CPT/HCPCS: 93005 ==

== ENCOUNTER 2025-05-06 05:37 | Emergency (ER) | payer BC, SELFPAY ==
--- NOTE | ~2025-05-06 | XR_ITS ---
CLINICAL HISTORY: chest pain 1 view chest x-ray Comparison: CR - XR CHEST 2V - 03/08/25 14:58 EDT Findings: There is a persistent airspace opacity in the right upper lobe. There may be a small amount of residual interlobular septal thickening. Normal size heart. No acute fracture. IMPRESSION: 1. There is a persistent airspace opacity in the right upper lobe. On the prior CT this opacity appears to represent a focus of consolidation. Please obtain a follow-up chest x-ray in 2 months. If the opacity persists consider obtaining a repeat chest CT. 2. There may be a small amount of residual interlobular septal thickening. This document has been electronically signed by: Buck Anderson MD on 05/06/2025 07:18:55
[2025-05-06 05:40] VITALS: BP 118/68; PULSE 80; O2SAT 94; BMI 29.1
--- NOTE | 2025-05-06 05:50 | ECG_ITS ---
Test Reason : CP Blood Pressure : */* mmHG Vent. Rate : 86 BPM Atrial Rate : * BPM P-R Int : * ms QRS Dur : 164 ms QT Int : 450 ms P-R-T Axes : * 103 8 degrees QTcB Int : 538 ms Atrial fibrillation Right bundle branch block Abnormal ECG When compared with ECG of 06-May-2025 05:50, Criteria for Lateral infarct are no longer Present No significant change was found Referred By: Shira Conroy Electronically Signed By: CASH MORROW MD
--- NOTE | 2025-05-06 05:53 | ED.CHESTPAIN ---
HPI - Chest Pain General Chief Complaint: Chest Pain Stated Complaint: CHEST PAIN/UNWELL FEELING Time Seen by Provider: 05/06/25 05:43 Source: patient and EMS Mode of arrival: EMS Limitations: no limitations History of Present Illness ED Provider: Dr. Shira Conroy HPI narrative: 75-year-old male with a history of CAD status post stent placement, atrial fibrillation on Eliquis presenting with substernal chest pain radiating to the right side ongoing since last night. Reports associated nausea and vomiting. Has been feeling under the weather for the last couple of days. Recently admitted to a hospital in [place] for elevated liver enzymes in the setting of amiodarone toxicity. States that he has a? felt quite right since that time?. Denies associated fevers, cough or cold-type symptoms, diarrhea or known sick contacts. Related Data Home Medications ?Medication ?Instructions ?Recorded ?Confirmed albuterol sulfate 90 mcg/actuation 2 puff inhalation Q4-6H PRN 03/08/25 05/02/25 aerosol inhaler Shortness Of Breath Or Wheezing bupropion HCl 150 mg tablet,12 hr 150 mg PO DAILY 03/08/25 05/02/25 sustained-release cholecalciferol (vitamin D3) 50 50 mcg PO DAILY 03/08/25 05/02/25 mcg (2,000 unit) capsule (Vitamin D3) empagliflozin 25 mg tablet 25 mg PO DAILY 03/08/25 05/02/25 (Jardiance) gabapentin 400 mg capsule 400 mg PO BID 03/08/25 05/02/25 losartan 50 mg tablet 50 mg PO BID 03/08/25 05/02/25 semaglutide 1 mg/dose (4 mg/3 mL) 1 mg subcut FR 03/08/25 03/08/25 subcutaneous pen injector (Ozempic) tamsulosin 0.4 mg capsule 0.4 mg PO DAILY 03/08/25 05/02/25 venlafaxine 75 mg capsule,extended 75 mg PO DAILY@199903/08/25 05/02/25 release 24 hr venlafaxine 75 mg capsule,extended 150 mg PO DAILY@0803/08/25 05/02/25 release 24 hr aspirin 81 mg tablet 81 mg PO DAILY 05/02/25 05/02/25 cetirizine 10 mg tablet 10 mg PO DAILY 05/02/25 05/02/25 furosemide 20 mg tablet (Lasix) 20 mg PO DAILY 05/02/25 05/02/25 hydralazine 10 mg tablet 10 mg PO BID 05/02/25 05/02/25 metformin 500 mg tablet,extended 500 mg PO DAILY 05/02/25 05/02/25 release 24 hr Previous Rx's ?Medication ?Instructions ?Recorded apixaban 5 mg tablet (Eliquis) 5 mg PO BID #180 tabs 03/12/25 amiodarone 200 mg tablet 200 mg PO BID #90 tabs 05/02/25 metoprolol succinate 50 mg 50 mg PO DAILY #90 tabs 05/02/25 tablet,extended release 24 hr Allergies Allergy/AdvReac Type Severity Reaction Status Date / Time erythromycin base AdvReac Unknown Verified 05/06/25 05:43 lisinopril AdvReac Unknown Verified 05/06/25 05:43 Penicillins AdvReac Unknown Verified 05/06/25 05:43 Review of Systems Review of Systems: As per HPI, full review of systems performed and negative but for the above mentioned pertinent positives and negatives. [facility] Past Medical History Medical History Essential hypertension A-fib Mass, brain Sarcoidosis GERD (gastroesophageal reflux disease) Hyperlipidemia Type 2 diabetes mellitus CHF (congestive heart failure) Social History Social History Household Members: None Housing: House Do you presently have visiting nurse or other home services: No Unable to assess alcohol history related to: Unknown Patient Tobacco Use Status: Never used Tobacco Advance Directives: No Advance Directives Information Provided: Yes Do you have a plan to hurt others: No Plan service: Yes Physical Exam Exam: Exam: GENERAL: Ill-Appearing, appears uncomfortable. SKIN: Slight jaundice, warm, dry, no rashes noted. HEENT: Normocephalic, atraumatic, no stridor, dry mucous membranes, dentition intact, EOMI, PERRLA. NECK: Soft, supple, full ROM, midline structures nontender, no step-offs, no deformities, no lymphadenopathy. CHEST: Heart irregular tachycardia, harsh systolic ejection murmur over the right upper sternal border, symmetric chest rise and fall. PULMONARY: Clear to auscultation bilaterally, diminished at the bases, no labored breathing, no wheezes/rhales/rhonchi. ABDOMINAL: Soft, nondistended, nontender, positive bowel sounds in all quadrants. : Deferred. MUSCULOSKELETAL: Normal tone, full range of motion, no deformities, no peripheral edema. NEURO: Alert and oriented x3, CN II through XII intact, equal strength and sensation bilateral upper and lower extremities, no focal neurologic deficits. PSYCHIATRIC: Flat affect, fluid speech, good eye contact and appropriate demeanor. Vital Signs: Vital Signs: Last Vital Signs Temp 97.5 F 05/06/25 06:34 Pulse 100 05/06/25 06:34 Resp 23 H 05/06/25 06:34 BP 130/94 H 05/06/25 06:34 Pulse Ox 97 05/06/25 06:34 O2 Del Method Room Air 05/06/25 06:34 BMI result Body Mass Index 29.1 Medications Administered Discontinued Medications Generic Name Dose Route Start Last Admin Trade Name Freq PRN Reason Stop Dose Admin Aspirin 324 mg 05/06/25 06:09 05/06/25 06:22 Aspirin 81 Mg Tab.Chew PO 05/06/25 06:10 324 mg ONCE ONE Administration Nitroglycerin 1 inch 05/06/25 06:09 05/06/25 06:23 Nitroglycerin 2 % Oint 1 Gm Packet TRANSDERMA 05/06/25 06:10 1 inch ONCE ONE Administration Medical Decision Making Medical Decision Making [facility] Narrative: Patient presents today with a chief complaint of chest pain. Differential diagnosis includes, but is not limited to, acute coronary syndrome, musculoskeletal pain, pneumothorax, GERD, pleurisy, pulmonary embolism, dissection, among others. I will order EKG, chest x-ray, the laboratory workup including cardiac enzymes to further evaluate for etiology. 6:18 AM 05/06/2025 (Dr. Shira Conroy D.O.) initial EKG shows some ST elevations in leads 1 and aVL with reciprocal depressions in V2 and V3. Concern for potential STEMI. Case discussed with wirer maintenance on-call, Dr. Jameson who agrees with plan for transfer to [facility] for interventional cardiology. We will contact [facility]. 6:24 AM 05/06/2025 (Dr. Shira Conroy D.O.) case discussed with nsh teacher at [facility] who agrees with plan for emergent transfer. Holding off on Brilinta as the patient is already taking Eliquis. We will give a heparin bolus though. Patient also given atorvastatin, aspirin and nitroglycerin. 6:41 AM 05/06/2025 (Dr. Shira Conroy, D.O.) Dr. Edwards (nsh teacher) called back to report that he feels this is not a STEMI and he will admit the patient to the intermediate care unit at [facility]. Awaiting bed availability at this time. Dr. Edwards he requested call back at his phone number ([phone]) should his condition change or his EKG become more concerning. 6:53 AM 05/06/2025 (Dr. Shira Conroy, Tamar.) patient accepted for transfer by Dr. Figueroa. We will be transferred via ALS. Transferred in guarded condition. Differential Diagnosis Differential Diagnoses: The differential diagnosis associated with the presentation includes (as above) Admission/Observation Consideration of admission/observation: Escalation of care including admission/observation considered Consult Healthcare Provider Management of the patient was discussed with: Reconnaissance Crewmember (cardiology (Gisell), interventional cardiology (Mamie)) Lab Data MDM Lab Attestation statement: I reviewed the patient's lab results. 05/06/25 06:06 05/06/25 06:06 Labs: Lab Results 05/06/25 Range/Units 06:06 WBC 8.3 (4.8-10.8) X10*3/uL RBC 4.30 L (4.60-5.80) X10*6/uL Hgb 12.7 L (14.0-18.0) g/dl Hct 37.8 L (42.0-52.0) % MCV 87.9 (80.0-98.0) fL MCH 29.5 (27.0-33.0) pg MCHC 33.6 (31.0-36.0) g/dl RDW 15.8 (11.0-16.0) % Plt Count 246 (160-400) X10*3/uL MPV 11.6 (9.4-12.4) fL Immature Gran % (Auto) 0.2 (0.0-0.4) % Neut % (Auto) 55.1 (45-73) % Lymph % (Auto) 30.5 (20-40) % [place] % (Auto) 11.9 H (2-11) % Eos % (Auto) 1.5 (0-4) % Baso % (Auto) 0.8 (0-2) % Lymph # (Auto) 2.5 (1.2-4.9) X10*3/uL [place] # (Auto) 1.0 (0.1-1.2) X10*3/uL Eos # (Auto) 0.1 (0.0-0.4) X10*3/uL Baso # (Auto) 0.1 (0.0-0.2) X10*3/uL Abs Immat Gran (auto) 0.02 (0.00-0.03) X10*3/uL Absolute Neuts (auto) 4.6 (2.0-8.3) x10*3/uL Absolute Nucleated RBC 0.000 (0.0-0.012) X10*3/uL Nucleated RBC % (auto) 0.0 (0.0-0.2) /100WBC PT 27.6 H (10.9-12.4) SEC INR 2.4 H (0.9-1.1) Sodium 137 (135-145) mmol/L Potassium 4.5 (3.3-5.1) mmol/L Chloride 103 (96-108) mmol/L Carbon Dioxide 24 (22-29) mmol/L Anion Gap 15 (12-20) BUN 21 H (9-16) mg/dL Creatinine 1.39 (0.5-1.4) mg/dL Estim Creat Clear Calc 56.2 Estimated GFR 50 Random Glucose 105 (60-115) mg/dL Calcium 9.0 D (8.4-10.2) mg/dL Total Bilirubin 1.6 H (0.0-1.0) mg/dL AST 45 H (5-37) U/L ALT 118 H (0-40) U/L Alkaline Phosphatase 64 (39-117) U/L Ammonia 37 (13-55) umol/L Troponin I High Sens 4.3 (<3.5-35.0) ng/L Total Protein 5.8 L (6.5-8.0) g/dL Albumin 3.6 (3.5-5.0) g/dL COVID-19 (SUE) Negative (Negative) COVID-19 Clin Com See Note Influenza Type A (YANNI) Negative (Negative) Influenza Type B (YANNI) Negative (Negative) Influenza A & B Note See Note Independent Interpretation I performed an independent interpretation of an: EKG Interpretation: 05:50 ST-elevation leads 1, aVL, reciprocal ST depressions in V2 and V3, atrial fibrillation, right bundle branch block, normal axis, ST elevations and depressions are new from previous in February 2025 06:37 ST elevations in leads 1 and aVL have improved after nitroglycerin, T-wave inversions persist in V2 and V3, rate of 86, QTC 538, right bundle branch block with QRS of 164 Independent Historian Clinical information obtained from an independent historian. History obtained from or confirmed by: EMS External Record Review External record reviewed: Inpatient record and Outpatient record Chronic Conditions Patient?s care impacted by: Hypertension and Other (afib, CAD) Discharge Plan Discharge Clinical Impression: Acute chest pain, Acute electrocardiogram changes, Nausea and vomiting Patient Disposition: [facility] Transfer Details: [facility], accepted by Dr. Figueroa Prescriptions: No Action losartan 50 mg tablet 50 mg PO BID bupropion HCl 150 mg tablet sustained-release 12 hr 150 mg PO DAILY venlafaxine 75 mg capsule,extended release 24hr 150 mg PO DAILY@0800 gabapentin 400 mg capsule 400 mg PO BID albuterol sulfate 90 mcg/actuation HFA aerosol inhaler 2 puff inhalation Q4-6H PRN (Reason: Shortness Of Breath Or Wheezing) Jardiance 25 mg tablet 25 mg PO DAILY Ozempic 1 mg/dose (4 mg/3 mL) pen injector 1 mg SUBCUT FR venlafaxine 75 mg capsule,extended release 24hr 75 mg PO DAILY@2000 tamsulosin 0.4 mg Capsule 0.4 mg PO DAILY cholecalciferol (vitamin D3) [Vitamin D3] 50 mcg (2,000 unit) Capsule 50 mcg PO DAILY Eliquis 5 mg Tablet 5 mg PO BID Qty: 180 0RF cetirizine 10 mg tablet 10 mg PO DAILY metformin 500 mg tablet extended release 24 hr 500 mg PO DAILY hydralazine 10 mg tablet 10 mg PO BID aspirin 81 mg tablet 81 mg PO DAILY furosemide [Lasix] 20 mg tablet 20 mg PO DAILY amiodarone 200 mg tablet 200 mg PO BID Qty: 90 3RF Rx Instructions: 400 mg twice daily for 2 weeks followed by 200 mg daily metoprolol succinate 50 mg tablet extended release 24 hr 50 mg PO DAILY Qty: 90 3RF Print Language: Swedish
[2025-05-06 06:16] LABS: Hematocrit 37.8 % (42.0-52.0); Hemoglobin 12.7 g/dl (14.0-18.0); Imm Gran Abs Auto 0.02 X10*3/uL (0.00-0.03); Imm Gran Pct Auto 0.2 % (0.0-0.4); Lymphocytes Absolute Auto 2.5 X10*3/uL (1.2-4.9); MANUAL DIFF FLAG NO; Mean Corpuscular HGB Conc 33.6 g/dl (31.0-36.0); Mean Corpuscular Hemoglobin 29.5 pg (27.0-33.0); Mean Corpuscular Volume 87.9 fL (80.0-98.0); NRBC Abs Auto 0.000 X10*3/uL (0.0-0.012); NRBC Pct Auto 0.0 /100WBC (0.0-0.2); Platelet Count 246 X10*3/uL (160-400); Red Blood Count 4.30 X10*6/uL (4.60-5.80); White Blood Count 8.3 X10*3/uL (4.8-10.8)
[2025-05-06 06:21] LABS: Ammonia 37 umol/L (13-55)
[2025-05-06 06:23] VITALS: BP 126/95; PULSE 92
[2025-05-06 06:23] LABS: INTERNATIONAL NORM RATIO 2.4 (0.9-1.1); Prothrombin Time 27.6 SEC (10.9-12.4)
[2025-05-06] MEDS: Nitroglycerin 2 % Oint 1 GM Packet 1 INCH TRANSDERMA (06:23)
--- NOTE | 2025-05-06 06:29 | ECG_ITS ---
Test Reason : CP Blood Pressure : */* mmHG Vent. Rate : 90 BPM Atrial Rate : * BPM P-R Int : * ms QRS Dur : 164 ms QT Int : 440 ms P-R-T Axes : * 76 163 degrees QTcB Int : 538 ms Atrial fibrillation Right bundle branch block Lateral infarct , age undetermined Inferior infarct (cited on or before 02-Mar-2025) Abnormal ECG When compared with ECG of 11-Mar-2025 15:43, Atrial fibrillation has replaced Sinus rhythm Lateral infarct is now Present Nonspecific T wave abnormality now evident in Inferior leads T wave inversion now evident in Anterolateral leads Referred By: Shira Conroy Electronically Signed By: CASH MORROW MD
[2025-05-06 06:30] LABS: Alanine Aminotransferase 118 U/L (0-40); Albumin Level 3.6 g/dL (3.5-5.0); Alkaline Phosphatase 64 U/L (39-117); Anion Gap 15 (12-20); Aspartate Amino Transferase 45 U/L (5-37); Blood Urea Nitrogen 21 mg/dL (9-16); COVID-19 Test Negative (Negative); Calcium 9.0 mg/dL (8.4-10.2); Carbon Dioxide 24 mmol/L (22-29); Chloride 103 mmol/L (96-108); Creatinine Clr Calc Pharmacy 56.2; Estimated Glomerular Filt Rate 50; IDNOW Serial# 58CA691E; Potassium 4.5 mmol/L (3.3-5.1); Sodium 137 mmol/L (135-145); Total Protein 5.8 g/dL (6.5-8.0)
--- OUTSIDE RECORDS SUMMARY | 2025-05-06 06:31 | XMS_ITS | Encounter Summary ---
Author Organization [facility] Address [address] [place] [address] Care Team Providers Care Php Mysql Developer Name Role Phone Unavailable Primary Care Provider Unavailabl e Encounter Details Date Type Department Care Team (Late st Contact Info) Description 05/17/[address] [facility] Services [place] [address] [place] [address] Tomás Alamo PA [address] [place] [address] Social History Tobacco Use Types Packs/Day Years Used Date Smoking Tobacco: Never Assessed Sex and Gender Information Value Date Recorded Sex Assigned at Not on file Legal Sex Male 1:21 AM [employer] Gender Identity Not on file Sexual Orientation Not on file documented as of this encounter Plan of Treatment Not on file documented as of this encounter Procedures Procedure Name Priority Date/Time Associated Diagnosis Comments PATHOLOGY Routine 05/17/2021 10:00 AM CDT documented in this encounter Results * PATHOLOGY (05/17/2021 10:00 AM CDT) CASE REPORT Surgical Pathology Report Case: [id number] Authorizing Provider: Tomás Alamo PA Collected: 05/17/2021 10:00 AM Ordering Location: [facility] Received: 05/17/2021 12:52 PM Services [place] Pathologist: Dipak Perera MD Specimens: A) - Forearm, right, LIPOMA HRCN [id number] B) - Shoulder, left, SEBACEOUS CYST 05/18/2021 10:22 AM CDT [facility] FINAL DIAGNOSIS A. Soft tissue, right forearm, excision- Angiolipoma B. Skin, left shoulder, excision- Epidermal inclusion cyst 05/18/2021 10:22 AM [facility] Verified by Dipak Perera MD [...] material. RSS 1. KM 05/18/2021 10:22 AM [facility] OPERATIVE PROCEDURE A. [id number] B. [id number] 05/18/2021 10:22 AM [facility] CLINICAL INFORMATION No Dx found. 05/18/2021 10:22 AM [facility] COMMENT ADA[facility] Surgical cases might have been signed out in the following labs: [facility] CLIA#[id number] , [address], [place] [address] [facility], CLIA# [id number], [address] [place] [address] 05/18/2021 10:22 AM [facility] Tissue (Forearm, right) 05/17/2021 10:00 AM CDT 05/17/2021 12:52 PM CDT Tissue specimen (specimen) (Shoulder, left) 05/17/2021 10:22 AM CDT 05/17/2021 12:52 PM CDT Tomás [facility] PATHOLOGY/CYTOLOGY ORDERABLES F inal Result [facility] CLIA# [id number] [address] [place] [address] documented in this encounter Visit Diagnoses Not on filedocumented in this encounter
--- OUTSIDE RECORDS SUMMARY | 2025-05-06 06:31 | XMS_ITS | Clinical Summary ---
Author Organization [facility] Address [address] [place] [address] Phone Care Team Providers Care Home Management Supervisor Name Role Phone Pcp, Unknown Primary Care [...] Description 09/24/2025 1:00 PM EST Office Visit [facility] Medicine [address] [place] [address] Merle Garces MD [address], [address] [place] [address] [email or web address] Health Maintenance Due Date Last Done Comments [...] topic Medical Devices Not on file Insurance [facility] MEDICARE A BLUE CROSS FEDERAL MEDICARE A [facility] MEDICARE A [facility] MEDICARE A [facility] MEDICARE A [facility] FEDERAL MEDICARE A Care Teams Home Management Supervisor Relationship Specialty Start Date End Date Pcp, Unknown PCP - General 04/29/25 Additional Source Comments The information contained in this document represents components of the legal health record. It is not the complete legal health record.[facility]
--- OUTSIDE RECORDS SUMMARY | 2025-05-06 06:31 | XMS_ITS | Clinical Summary ---
Author Organization [facility] Address [address], [place] [address] Phone Care Team Providers Care Computer Support Analyst Name Role Phone Unavailable Primary Care Provider [...] Diagnosed Date Abnormal EKG 05/16/2024 CAD in [place] artery 05/16/2024 Type 2 diabetes mellitus without complication Atherosclerosis of coronary artery without angin a pectoris 07/02/2023 Stented coronary artery 07/02/2023 Mixed hyperlipidemia 01/27/2023 Essential hypertension 07/17/2022 Obstructive sleep apnea syndrome 07/17/2022 Paroxysmal atrial fibrillation 07/17/2022 Chronic lung disease 04/06/2022 Moderate mitral regurgitation 04/06/2022 Chest pain 09/23/2020 Myocardial infarction 09/23/2020 Encounters Date Type Department Care Team Description 04/02/[address] [facility] [address] [place] [id number] Marian Holland from Last 3 Months Immunizations [...] 75+ series) 2024 COVID-19 Vaccine (3 - 2024-2 6 season) 2025 05/28/2021, 08/28/2020 Influenza Vaccine (#1) 2025 2, [...] age to complete this topic Insurance [facility] Address: [address] [place] [address] [facility] Address: [address] [place] [address]
--- OUTSIDE RECORDS SUMMARY | 2025-05-06 06:31 | XMS_ITS | Clinical Summary ---
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
[2025-05-06 06:34] VITALS: BP 130/94; PULSE 100; RESP 23; TEMP 36.4; O2SAT 97
[2025-05-06 06:35] LABS: Troponin-I High Sensitivity 4.3 ng/L (<3.5-35.0)
[2025-05-06 06:45] LABS: IDNOW Serial# 55D5AD1C; Influenza B2 Negative (Negative)
[2025-05-06 07:25] VITALS: BP 133/96; PULSE 94; RESP 17; TEMP 36.6; O2SAT 97
== END 2025-05-06 07:37 | disposition short-term general hospital (02) ==
PROVIDERS: Emergency Provider Emergency Medicine
DX: R07.89 Other chest pain (principal); I48.91 Unspecified atrial fibrillation; R11.2 Nausea with vomiting, unspecified; Z79.01 Long term (current) use of anticoagulants; Z11.52 Encounter for screening for COVID-19; Z03.818 Encounter for observation for suspected exposure to other biological agents ruled out; Z79.899 Other long term (current) drug therapy
CPT/HCPCS: 71045; 80053; 82140; 84484; 85025; 85610; 87502; 87635; 93005; 96374; 99285; J1644

== ENCOUNTER → 2025-05-06 05:50 | Outpatient (BNV) | payer BC, SELFPAY | PROVIDERS: Emergency Provider Emergency Medicine; Visit Provider Internal Medicine Cardiovascular Disease | DX: I48.91 Unspecified atrial fibrillation (principal); I45.10 Unspecified right bundle-branch block; I25.2 Old myocardial infarction | CPT/HCPCS: 93010 ==

== ENCOUNTER → 2025-05-06 06:38 | Outpatient (BNV) | payer BC, SELFPAY | PROVIDERS: Emergency Provider Emergency Medicine; Visit Provider Radiology Diagnostic Radiology | DX: R91.8 Other nonspecific abnormal finding of lung field (principal) | CPT/HCPCS: 71045 ==

== ENCOUNTER 2025-05-14 15:06 | Outpatient (REF) | payer BC, SELFPAY ==
[2025-05-14 16:55] LABS: Hematocrit 40.3 % (42.0-52.0); Hemoglobin 12.9 g/dl (14.0-18.0); Mean Corpuscular HGB Conc 32.0 g/dl (31.0-36.0); Mean Corpuscular Hemoglobin 28.2 pg (27.0-33.0); Mean Corpuscular Volume 88.2 fL (80.0-98.0); NRBC Abs Auto 0.000 X10*3/uL (0.0-0.012); NRBC Pct Auto 0.0 /100WBC (0.0-0.2); Platelet Count 270 X10*3/uL (160-400); Red Blood Count 4.57 X10*6/uL (4.60-5.80); White Blood Count 6.1 X10*3/uL (4.8-10.8)
[2025-05-14 17:35] LABS: Alanine Aminotransferase 60 U/L (0-40); Albumin Level 3.7 g/dL (3.5-5.0); Alkaline Phosphatase 64 U/L (39-117); Anion Gap 17 (12-20); Aspartate Amino Transferase 46 U/L (5-37); Blood Urea Nitrogen 33 mg/dL (9-16); Calcium 9.6 mg/dL (8.4-10.2); Carbon Dioxide 27 mmol/L (22-29); Chloride 97 mmol/L (96-108); Cholesterol 93 mg/dL (<200); Estimated Glomerular Filt Rate 29; HDL Cholesterol 35 mg/dL (>40); Potassium 5.7 mmol/L (3.3-5.1); Sodium 135 mmol/L (135-145); Total Protein 5.7 g/dL (6.5-8.0); Triglycerides 82 mg/dL (<150)
== END 2025-05-14 15:07 | disposition home or self-care (01) ==
LOC: HO.LAB 15:06
PROVIDERS: Visit Provider Internal Medicine Cardiovascular Disease
DX: I25.10 Atherosclerotic heart disease of native coronary artery without angina pectoris (principal); Z09 Encounter for follow-up examination after completed treatment for conditions other than malignant neoplasm; I48.0 Paroxysmal atrial fibrillation; I10 Essential (primary) hypertension; E78.5 Hyperlipidemia, unspecified; G47.33 Obstructive sleep apnea (adult) (pediatric)
CPT/HCPCS: 36415; 80048; 80061; 80076; 85027; 93005

== ENCOUNTER 2025-05-14 15:06 | Outpatient (AMB) | payer BC, SELFPAY ==
[2025-05-14 15:50] VITALS: BP 98/60; PULSE 60
--- NOTE | 2025-05-14 17:17 | MHC.OFFVIS ---
Vital Signs 05/14/25 15:50 BP 98/60 Blood Pressure Location Lt radial Pulse 60 Pulse Source Monitor Intake Visit Reasons: EKG Allergies erythromycin base Adverse Reaction (Verified 05/14/25 18:48) Unknown lisinopril Adverse Reaction (Verified 05/14/25 18:48) Unknown Penicillins Adverse Reaction (Verified 05/14/25 18:48) Unknown HPI Comments Details: This is a 75-year-old male patient who comes in today for a nurse visit for an EKG check following restarting amiodarone for his AFib. Patient with history of coronary artery disease status post WI and PCI to the RCA in 2020 with a repeat cardiac catheterization in 2022 that showed patent RCA stent with mild coronary artery disease (from his previous Card notes), paroxysmal AFib, hypertension, hyperlipidemia, diabetes, and chronic HFpEF. Patient was following with his primary geophysical data technician at [place] however patient relocated to [place] recently. Between his relocation patient has had multiple hospital visits or AFib management, liver toxicity, and paresthesias. Patient was noted to be in persistent AFib with symptoms of shortness of breath and fatigue for which patient was started back on amiodarone and is referred out to fitness and wellness director for a possible catheter ablation. However patient was seen in the hospital for chest discomfort where patient had EKG changes and therefore was transferred to [facility] for further management. Patient states that he had a stress test there which was negative and was planned for a cardioversion for the persistent AFib. However patient has been on Ozempic and therefore we planned on approaching this with possibly a catheter ablation in the outpatient setting. Patient reports that he has not been feeling like himself for the last 3 days with worsening weakness and fatigue. Patient is accompanied by his son today and was also concerned about his decline. Patient reports that he has been regularly taking all his medications. Patient is denying any exertional chest discomfort, palpitations, dizziness, orthopnea, PND, leg edema, presyncope, or syncope. Patient denies any signs of bleeding. [facility] Medical History Essential hypertension A-fib Mass, brain Sarcoidosis GERD (gastroesophageal reflux disease) Hyperlipidemia Type 2 diabetes mellitus CHF (congestive heart failure) Social History Household Members: None Housing: House Do you presently have visiting nurse or other home services: No Unable to assess alcohol history related to: Unknown Patient Tobacco Use Status: Never used Tobacco Smoked in Last 30 Days: No Use of substances other than those prescribed or required for medical reasons: No Advance Directives: No Advance Directives Information Provided: Yes service: Yes Physical Exam Vital Signs: Last Vital Signs Pulse 60 05/14/25 15:50 BP 98/60 05/14/25 15:50 Const General: cooperative, comfortable and no acute distress Orientation/consciousness: patient oriented x3 HEENT Head: Yes normal to inspection Neck Neck: Yes normal visual inspection, Yes trachea midline and Yes supple Chest Chest palpation & inspection: normal inspection of the chest Resp Effort & Inspection: normal respiratory effort Auscultation: clear to auscultation bilaterally, no crackles, no rales, no rhonchi and no wheezes Cardio Jugular venous distension: no JVD Palpation: normal PMI Rate: regular rate Rhythm: regular rhythm Heart sounds: S1 normal heart sound present, S2 normal heart sound present, no click, no gallops, no murmurs and no rubs Peripheral pulses: Peripheral pulses 2+ throughout GI Inspection: Yes normal to inspection Palpation (GI): Soft to palpation Auscultation: normal bowel sounds Skin General skin exam: no rashes or lesions noted Neuro General: patient oriented x3 Extrem General: Yes normal to inspection, No no pedal edema and No calf tenderness Psych Appearance: grossly normal Mental Status: mental status grossly normal Speech and movement: Normal speech and movement present Office Procedures EKG Details: EKG today showed sinus rhythm with first-degree AV block, rate 60 beats per minute, right bundle branch block, nonspecific STT wave, prolonged QT at 550 milliseconds. [id number], Complete Assessment & Plan Assessment & Plan (1) A-fib: Code(s): I48.91 - Unspecified atrial fibrillation Category: Medical Qualifiers: Atrial fibrillation type: paroxysmal Qualified Code(s): I48.0 - Paroxysmal atrial fibrillation Plan: EKG today shows sinus rhythm with first-degree AV block. Patient's liver functions have improved in the recent hospitalization. Patient states that he has been on the loading dose of amiodarone for about ten days now. However given his prolonged QT, we will decrease his amiodarone to 200 mg daily. We had referred patient out to EP previously for possible catheter ablation which we will still remain in the bands for now. Continue Eliquis for full anticoagulation. No reported signs of bleeding. Patient does have a pallor skin tone today and therefore we will repeat a CBC. 03/10/2025-echo study showed mildly decreased LV systolic function with an ejection fraction at 45% with akinetic basal inferior and mid inferior segments, and [id number] mitral valve regurgitation. Echo repeated at [facility] on 05/07/2025 showed an EF of 48% with mild global hypokinesis of the left ventricle. It also showed a small pericardial effusion. 05/08/2025-patient underwent a myocardial perfusion study with vasodilating agent that revealed no ischemia but showed a moderate-sized, moderate severity fixed defect in the basal apical inferior wall consistent with scarring. Given patient's ongoing symptoms and presentation, we recommended going to the ER however patient would rather pursue lab work and depending on the findings would be okay going to the ER if needed. We will check for anemia, electrolyte imbalance, kidney function, and liver functions. We will plan to contact patient and his son with the findings. (2) CAD (coronary artery disease): Code(s): I25.10 - Atherosclerotic heart disease of [place] coronary artery without angina pectoris Category: Medical Plan: Per his records from [place] [facility], patient had a stent placed in 2020 to the RCA with a repeat cardiac catheterization in July of 2023 showing patent RCA with mild coronary disease in the LAD. As above. (3) Essential hypertension: Code(s): I10 - Essential (primary) hypertension Category: Medical Plan: Blood pressure today is low normal. Advised to hold his bedtime hydralazine and losartan. Advised hydration and further treatment based on lab findings. Advised to monitor blood pressures at home. (4) Hyperlipidemia: Code(s): E78.5 - Hyperlipidemia, unspecified Category: Medical Plan: As above. (5) ETA (obstructive sleep apnea): Code(s): G47.33 - Obstructive sleep apnea (adult) (pediatric) Category: Medical Plan: Referral placed to pulmonology for the management of this. Continue CPAP therapy. (6) Hospital discharge follow-up: Code(s): Z09 - Encounter for follow-up examination after completed treatment for conditions other than malignant neoplasm Plan: As above. As patient is hesitant about going to the ER currently, we decided to do lab work and to revisit the need for ER in case of any abnormal findings. Patient verbalizes understanding of the plan and son also in agreement. For now, we will keep use upcoming follow-up visit. I will plan on discussing his case further with his primary geophysical data technician Dr. Mcdaniel upon his return. In the interim, patient will call the office with any concerns or change in symptoms. This note was generated using voice recognition software. While every effort has been made to ensure accuracy and proper prawn trawler hand, there may be occasional errors that could affect the content or meaning of the described symptoms. Orders: Orders AMB EKG-In Office Today I48.0 - Paroxysmal atrial fibrillation Coding Level of Care Code Est Pt Level 4 (99602) Complex EM visit Add On G2211 Diagnoses A-fib I48.0 Atrial fibrillation type: paroxysmal CAD (coronary artery disease) I25.10 Essential hypertension I10 Hyperlipidemia E78.5 TEA (obstructive sleep apnea) G47.33 Hospital discharge follow-up Z09 CPT Codes EKG - CPT: 03691-[id number], Complete ([id number]) Time Spent (min) 31 Comment Time spent in reviewing the chart, test results, assessment, counseling and documentation.
--- OUTSIDE RECORDS SUMMARY | 2025-05-14 18:40 | XMS_ITS | Clinical Summary ---
Author Organization [facility] Address [address], [place] [address] Phone Care Team Providers Care Kennel Assistant Name Role Phone Unavailable Primary Care Provider [...] Diagnosed Date Abnormal EKG 05/16/2024 CAD in [place] artery 05/16/2024 Type 2 diabetes mellitus without complication Atherosclerosis of coronary artery without angin a pectoris 07/02/2023 Stented coronary artery 07/02/2023 Mixed hyperlipidemia 01/27/2023 Essential hypertension 07/17/2022 Obstructive sleep apnea syndrome 07/17/2022 Paroxysmal atrial fibrillation 07/17/2022 Chronic lung disease 04/06/2022 Moderate mitral regurgitation 04/06/2022 Chest pain 09/23/2020 Myocardial infarction 09/23/2020 Encounters Date Type Department Care Team Description 04/02/2025 Telephone [facility] [address] [place] [phone] Marian Holland from Last 3 Months Immunizations [...] age to complete this topic Insurance [facility] [place] [facility] [place] [facility]
--- OUTSIDE RECORDS SUMMARY | 2025-05-14 18:40 | XMS_ITS | Clinical Summary ---
Author Organization [facility] Address [address] [place] [address] Phone Care Team Providers Care Straw Baler Name Role Phone Pcp, Unknown Primary Care [...] Description 09/24/2025 1:00 PM EST Office Visit [facility] Medicine [address] [place] [address] Merle Garces MD [address] [place] [address] [email or web address] Maintenance Due Date Last Done Comments [...] topic Medical Devices Not on file Insurance [facility] MEDICARE A BLUE CROSS FEDERAL MEDICARE A [facility] MEDICARE A [facility] MEDICARE A [facility] MEDICARE A [facility] FEDERAL MEDICARE A Care Teams Straw Baler Relationship Specialty Start Date End Date Pcp, Unknown PCP - General 04/29/25 Additional Source Comments The information contained in this document represents components of the legal health record. It is not the complete legal health record.[facility]
--- OUTSIDE RECORDS SUMMARY | 2025-05-14 18:40 | XMS_ITS | Encounter Summary ---
Author Organization [facility] Address 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
--- OUTSIDE RECORDS SUMMARY | 2025-05-14 18:40 | XMS_ITS | Clinical Summary ---
Author Organization [facility] [place] [address] [place] [phone] Phone Care Team Providers Care Photo Specialist Name Role Phone Unavailable Primary Care Provider Unavailabl e Encounters Date Type Department Care Team Description 05/13/2025 External Device Data [facility] ABSTRACTION Provider, Abstract 04/29/2025 External Device Data [facility] ABSTRACTION Provider, Abstract from Last 3 Months Social History Tobacco Use Types Packs/Day Years Used Date Smoking Tobacco: Never Assessed Sex and Gender Information Value Date Recorded Sex Assigned at Not on file 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
--- OUTSIDE RECORDS SUMMARY | 2025-05-14 18:40 | XMS_ITS | Encounter Summary ---
Author Organization [facility] Address [address] [place] [address] Care Team Providers Care Chimney Repairer Name Role Phone Unavailable Primary Care Provider Unavailabl e Encounter Details Date Type Department Care Team (Late st Contact Info) Description 05/17/2021 Lab Requisition [facility] [place] [address] 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 Gender Identity Not on file Sexual Orientation Not on file documented as of this encounter Plan of Treatment Not on file documented as of this encounter Procedures Procedure Name Priority Date/Time Associated Diagnosis Comments PATHOLOGY Routine 05/17/2021 10:00 AM CDT documented in this encounter Results * PATHOLOGY (05/17/2021 10:00 AM CDT) CASE REPORT Surgical Pathology Report Case: [id number] Authorizing Provider: Tomás Alamo PA Collected: 05/17/2021 10:00 AM Ordering Location: [facility] Received: 05/17/2021 12:52 PM Services [place] Pathologist: Dipak Perera MD Specimens: A) - Forearm, right, LIPOMA HRCN [id number] B) - Shoulder, left, SEBACEOUS CYST 05/18/2021 10:22 AM CDT [facility] FINAL DIAGNOSIS A. Soft tissue, right forearm, excision- Angiolipoma B. Skin, left shoulder, excision- Epidermal inclusion cyst 05/18/2021 10:22 AM [facility] Verified by Dipak Perera MD [...] material. RSS 1. KM 05/18/2021 10:22 AM [facility] OPERATIVE PROCEDURE A. [id number] B. [id number] 05/18/2021 10:22 AM [facility] CLINICAL INFORMATION No Dx found. 05/18/2021 10:22 AM [facility] COMMENT [facility] Surgical cases might have been signed out in the following labs: [facility], CLIA#[id number] , [address], [place] [address] [facility], CLIA# [id number], [address] [place] [address] 05/18/2021 10:22 AM [facility] Tissue (Forearm, right) 05/17/2021 10:00 AM CDT 05/17/2021 12:52 PM CDT Tissue specimen (specimen) (Shoulder, left) 05/17/2021 10:22 AM CDT 05/17/2021 12:52 PM CDT Tom[facility] PATHOLOGY/CYTOLOGY ORDERABLES F inal Result [facility] CLIA# [id number] [address] [place] [address] documented in this encounter Visit Diagnoses Not on filedocumented in this encounter
== END 2025-05-14 16:10 | disposition home or self-care (01) ==
DX: I48.0 Paroxysmal atrial fibrillation (principal); I25.10 Atherosclerotic heart disease of native coronary artery without angina pectoris; I10 Essential (primary) hypertension; E78.5 Hyperlipidemia, unspecified; G47.33 Obstructive sleep apnea (adult) (pediatric); Z09 Encounter for follow-up examination after completed treatment for conditions other than malignant neoplasm
CPT/HCPCS: 93010; 99214

== ENCOUNTER 2025-05-14 18:25 | Inpatient (IN) | payer MEDICARE, BC, SELFPAY ==
--- NOTE | ~2025-05-14 | XR_ITS ---
CLINICAL HISTORY: hx CHF, LY 1 view chest x-ray Comparison: CR - XR CHEST 1V - 05/06/25 06:[address]/SR - CT ANGIO CHEST PE PROTOCOL - 03/02/25 23:47 EDT Findings: Heart size is normal Stable right upper lobe consolidation, corresponding to CT angiogram of the chest 03/02/2025. Prominence of the bilateral interstitial lung markings, suggestive of vascular congestion. More consolidative opacity in the right lower lobe, which may represent pneumonia. No pleural effusions. Osseous structures unremarkable. IMPRESSION: Right lower lobe hazy consolidation which may represent a developing pneumonia. Correlate clinically. Vascular congestion, no pleural effusions This document has been electronically signed by: Daren Montana MD on 05/14/2025 23:23:41
--- NOTE | ~2025-05-14 | MR_ITS ---
CLINICAL HISTORY: cirrhosis, ascites; ?PVT obstructive hepatopathy Examination: MRI abdomen with and without intravenous contrast Comparison: CT/AK/SR - CT ABDOMEN PELVIS WO IV CON - 05/15/25 03:00 EDT Findings: Liver: Mild hepatomegaly. There is no evidence of hepatic steatosis/hematochromatosis. No focal liver lesions demonstrated. The hepatic and portal veins are patent. Biliary tree: There is no intra-hepatic or extrahepatic biliary ductal dilatation. Layering gallstones. Pancreas: Normal in signal intensity and enhancement without evidence of mass or pancreatic duct dilatation. There is no evidence of pancreatitis. Spleen: Normal in size and signal. Adrenals: Normal in size and morphology. Kidneys: The kidneys enhance symmetrically and are without hydronephrosis or solid mass. Bowel: There is no bowel obstruction or abnormal enhancement. Lymph nodes: No pathologic lymphadenopathy by imaging criteria. Skeletal: No aggressive osseous lesion is identified. Other: Moderate right [id number] left pleural-parenchymal disease. Moderate amount of free ascites. Mesenteric edema. Impression: 1. Mild hepatomegaly. Patent portal veins. No splenomegaly. Moderate amount of ascites. Mesenteric edema. No focal hepatic lesions. 2. Moderate right [id number] left pleural-parenchymal disease with pleural effusions and basilar atelectasis versus infiltrates. 3. Cholelithiasis without evidence of cholecystitis. This document has been electronically signed by: Solis Barraza MD on 05/16/2025 22:14:41
--- NOTE | ~2025-05-14 | CT_ITS ---
CLINICAL HISTORY: hepatic labs abnormal CT abdomen and pelvis without contrast Comparison: CT/SR - CT ANGIO CHEST PE PROTOCOL - 03/02/25 23:47 EDT Findings: Simple bilateral pleural effusions, right larger than left, with compressive atelectasis. Calcified granuloma in the right lower lobe and in the left lower lobe. 0.6 cm nodule in the right lower lobe (series 3, image 5). Cholelithiasis without CT evidence of cholecystitis. Nodular irregular contour of the liver, suggestive of cirrhosis. Limited evaluation for masses in the absence of intravenous contrast. Other solid organs unremarkable. Marked gastric distension. No bowel obstruction, pneumoperitoneum, or pneumatosis. Pelvic contents are unremarkable. Appendix not seen but no secondary signs of acute appendicitis. There is a moderate amount of abdominopelvic ascites. It measures simple fluid density. No pathologically enlarged lymph nodes. Osseous structures are unremarkable. Impression: Nodular liver contour with abdominopelvic ascites and bilateral pleural effusions, right larger than left, suggestive of cirrhosis Marked gastric distention without mechanical cause for bowel obstruction 0.6 cm nodule in the right lower lobe. Other nodules were present on CT angiogram of the chest 03/02/2025. Continue follow-up per Fleischner criteria. This document has been electronically signed by: Daren Montana MD on 05/15/2025 05:17:36
--- NOTE | ~2025-05-14 | US_ITS ---
EXAMINATION: US GUIDED PARACENTESIS CLINICAL INFORMATION: Ascites. COMPARISON: None available. TECHNIQUE: Following explaining ultrasound-guided paracentesis procedure, benefits and risk, a written consent was obtained. Patient was placed supine on ultrasound stretcher and preliminary ultrasound imaging was obtained. An optimal site was selected along the right lower quadrant and the site was marked with a marker. The marked site was cleaned and draped in usual sterile manner with 2% chlorhexidine solution. 1% lidocaine was administered puncture site. Through a small skin incision a 4 [place] density and long TabSys catheter was advanced into the peritoneal space. After observing fluid return, stylet was withdrawn and catheter connected to vacuum bottle via connecting cannula. After obtaining all fluid and observing normal fluid return, catheter was withdrawn and complete hemostasis achieved at puncture site. Tegaderm dressing was applied at the puncture site. Patient tolerated procedure extremely well. FINDINGS: On preliminary ultrasound imaging there is small to moderate amount of fluid in the flanks. Approximately 875 ml clear rene color fluid was drained from right lower quadrant US/US paracentesis abd w/image IMPRESSION: Successful diagnostic and therapeutic ultrasound-guided paracentesis performed. Electronically signed by: Craig Nieves MD 05/16/2025 04:51 PM EDT
--- NOTE | 2025-05-14 18:30 | ECG_ITS ---
Test Reason : HYPERKALEMIA Blood Pressure : */* mmHG Vent. Rate : 56 BPM Atrial Rate : 56 BPM P-R Int : 326 ms QRS Dur : 194 ms QT Int : 588 ms P-R-T Axes : 30 98 4 degrees QTcB Int : 567 ms Sinus bradycardia with 1st degree A-V block Right bundle branch block Possible Inferior infarct , age undetermined Abnormal ECG When compared with ECG of 06-May-2025 06:32, Sinus rhythm has replaced Atrial fibrillation Vent. rate has decreased by 30 bpm QRS duration has increased Referred By: Generic ED Physician Electronically Signed By: YANIQUE MOHR
[2025-05-14 18:44] LABS: MANUAL DIFF FLAG NO
[2025-05-14 18:45] VITALS: BP 106/57; PULSE 56; RESP 20; TEMP 35; O2SAT 94; BMI 23.7
[2025-05-14 18:46] LABS: Hematocrit 39.6 % (42.0-52.0); Hemoglobin 13.0 g/dl (14.0-18.0); Imm Gran Abs Auto 0.03 X10*3/uL (0.00-0.03); Imm Gran Pct Auto 0.5 % (0.0-0.4); Lymphocytes Absolute Auto 1.9 X10*3/uL (1.2-4.9); Mean Corpuscular HGB Conc 32.8 g/dl (31.0-36.0); Mean Corpuscular Hemoglobin 28.9 pg (27.0-33.0); Mean Corpuscular Volume 88.0 fL (80.0-98.0); NRBC Abs Auto 0.000 X10*3/uL (0.0-0.012); NRBC Pct Auto 0.0 /100WBC (0.0-0.2); Platelet Count 254 X10*3/uL (160-400); Red Blood Count 4.50 X10*6/uL (4.60-5.80); White Blood Count 6.2 X10*3/uL (4.8-10.8)
[2025-05-14 18:54] LABS: INTERNATIONAL NORM RATIO 4.2 (0.9-1.1); Prothrombin Time 47.7 SEC (10.9-12.4)
[2025-05-14 18:59] LABS: Alanine Aminotransferase 60 U/L (0-40); Albumin Level 3.8 g/dL (3.5-5.0); Alkaline Phosphatase 66 U/L (39-117); Anion Gap 17 (12-20); Aspartate Amino Transferase 45 U/L (5-37); Blood Urea Nitrogen 33 mg/dL (9-16); Calcium 9.3 mg/dL (8.4-10.2); Carbon Dioxide 25 mmol/L (22-29); Chloride 98 mmol/L (96-108); Creatinine Clr Calc Pharmacy 30.7; Estimated Glomerular Filt Rate 28; Potassium 4.7 mmol/L (3.3-5.1); Sodium 135 mmol/L (135-145); Total Protein 5.8 g/dL (6.5-8.0)
[2025-05-14 19:06] LABS: Troponin-I High Sensitivity 66.1 ng/L (<3.5-35.0)
[2025-05-14 19:36] VITALS: BP 121/80; PULSE 56; RESP 26; O2SAT 99
[2025-05-14 19:38] LABS: Appearance Urine Clear; Glucose Urine UA >=1000 mg/dL (Negative); PH 6.5 (5.0-9.0); Specific Gravity - Urine 1.015 (1.005-1.025); UMIC TRIGGER UACC YES
--- NOTE | 2025-05-14 20:16 | ED.GENADULT ---
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 Originally was seen here for an elevated potassium. Related Data Home Medications ?Medication ?Instructions ?Recorded ?Confirmed albuterol sulfate 90 mcg/actuation 2 puff inhalation Q4-6H PRN 03/08/25 05/02/25 aerosol inhaler Shortness Of Breath Or Wheezing bupropion HCl 150 mg tablet,12 hr 150 mg PO DAILY 03/08/25 05/02/25 sustained-release cholecalciferol (vitamin D3) 50 50 mcg PO DAILY 03/08/25 05/02/25 mcg (2,000 unit) capsule (Vitamin D3) empagliflozin 25 mg tablet 25 mg PO DAILY 03/08/25 05/02/25 (Jardiance) gabapentin 400 mg capsule 400 mg PO BID 03/08/25 05/02/25 losartan 50 mg tablet 50 mg PO BID 03/08/25 05/02/25 semaglutide 1 mg/dose (4 mg/3 mL) 1 mg subcut FR 03/08/25 03/08/25 subcutaneous pen injector (Ozempic) tamsulosin 0.4 mg capsule 0.4 mg PO DAILY 03/08/25 05/02/25 venlafaxine 75 mg capsule,extended 75 mg PO DAILY@199903/08/25 05/02/25 release 24 hr venlafaxine 75 mg capsule,extended 150 mg PO DAILY@0803/08/25 05/02/25 release 24 hr aspirin 81 mg tablet 81 mg PO DAILY 05/02/25 05/02/25 cetirizine 10 mg tablet 10 mg PO DAILY 05/02/25 05/02/25 furosemide 20 mg tablet (Lasix) 20 mg PO DAILY 05/02/25 05/02/25 hydralazine 10 mg tablet 10 mg PO BID 05/02/25 05/02/25 metformin 500 mg tablet,extended 500 mg PO DAILY 05/02/25 05/02/25 release 24 hr Previous Rx's ?Medication ?Instructions ?Recorded apixaban 5 mg tablet (Eliquis) 5 mg PO BID #180 tabs 03/12/25 amiodarone 200 mg tablet 200 mg PO BID #90 tabs 05/02/25 metoprolol succinate 50 mg 50 mg PO DAILY #90 tabs 05/02/25 tablet,extended release 24 hr Allergies Allergy/AdvReac Type Severity Reaction Status Date / Time erythromycin base AdvReac Unknown Verified 05/14/25 18:48 lisinopril AdvReac Unknown Verified 05/14/25 18:48 Penicillins AdvReac Unknown Verified 05/14/25 18:48 Review of Systems Review of Systems: Pertinent positives and negatives as stated in HPI PMFSH Past Medical History Source: nursing notes reviewed Medical History Essential hypertension A-fib Mass, brain Sarcoidosis GERD (gastroesophageal reflux disease) Hyperlipidemia Type 2 diabetes mellitus CHF (congestive heart failure) Social History Social History Household Members: None Housing: House Do you presently have visiting nurse or other home services: No Unable to assess alcohol history related to: Unknown Patient Tobacco Use Status: Never used Tobacco Smoked in Last 30 Days: No Use of substances other than those prescribed or required for medical reasons: No Advance Directives: No Advance Directives Information Provided: Yes service: Yes Physical Exam ED Exam Exam: VITAL SIGNS: Reviewed. GENERAL: [place], chronically ill, appears older than stated age, well nourished, in no acute distress. HEAD: Normocephalic/atraumatic EYES: PERRLA, EOMI EARS: Ext canals without abnormality NOSE: Nares patent bilateral OROPHARYNX: no oral lesions noted, posterior pharynx clear NECK: Supple, no adenopathy LUNGS: Normal breath sounds. No adventitious sounds or accessory muscle use. SpO2<99> CARDIOVASCULAR: Regular rate and rhythm without noted murmurs, no JVD or lower extremity edema. ABDOMEN: Soft, non-tender, non-distended with bowel sounds. MUSCULOSKELETAL: No tenderness, deformities, or effusions noted on gross inspection. EXTREMITIES: No cyanosis, clubbing or edema. NO INJURIES NOTED TO BILATERAL KNEES. SKIN: Inspection of the skin reveals no rashes NEUROLOGIC: Alert and oriented x 4. Strength and sensation to light touch were grossly intact x 4. Vital Signs: Vital Signs - 24 hr 05/14/25 18:45 05/14/25 19:36 Temperature 95 F L Pulse Rate 56 56 Respiratory Rate 20 26 H Blood Pressure 106/57 L 121/80 Pulse Oximetry 94 99 Oxygen Delivery Method Room Air Room Air BMI result Body Mass Index 23.7 Medical Decision Making Medical Decision Making MDM Narrative: 75-year-old male with history and clinical presentation, DX: After discussion with the son it sounds like this patient has been having gradual and progressive decline for several weeks, the son informs me that his father's workup was otherwise within normal limits through the [facility] system, he reports that his father had a stress test as well as an echocardiogram. We will evaluate for the isolated potassium derangement. My interpretation of the EKG: This rhythm is actually atrial fibrillation, HR 56, right bundle branch block at baseline, no STEMI, I do not think that that is a AK interval, there are no significant changes when compared to prior from 05/06/2025. 2021: I reviewed and interpreted all investigations and there is no leukocytosis, there is a stable anemia and no thrombocytopenia. INR- 4.2 which is significantly increased from 05/06. There is a progressive worsening of renal function, otherwise, potassium is within normal limits and liver enzymes are stable. High sensitivity troponin 66.1 which is significantly elevated when compared to prior on 05/06. Patient has no complaints of chest pain. Urinalysis is otherwise negative for UTI or hematuria. On closer review of patient's lab work, I do feel that he meets inpatient level of care for further evaluation of the liver/renal function and will obtain a 2nd troponin to further evaluation of the elevated troponin. Once again, patient is asymptomatic at this time. I spoke to the patient and his son, patient continues to endorse a absence of chest pain or palpitations. I let them know that we would be pursuing admission for further evaluation for worsening kidney function as well as the elevated troponin. Differential Diagnosis Differential Diagnoses: The differential diagnosis associated with the presentation includes See above Admission/Observation Consideration of admission/observation: Escalation of care including admission/observation considered See above Consult Healthcare Provider Management of the patient was discussed with: Hospitalist See above Lab Data MDM Lab Attestation statement: I reviewed the patient's lab results. See above 05/14/25 18:39 05/14/25 18:39 Labs: Lab Results 05/14/25 05/14/25 05/14/25 Range/Units 18:39 19:33 20:32 WBC 6.2 (4.8-10.8) X10*3/uL RBC 4.50 L (4.60-5.80) X10*6/uL Hgb 13.0 L (14.0-18.0) g/dl Hct 39.6 L (42.0-52.0) % MCV 88.0 (80.0-98.0) fL MCH 28.9 (27.0-33.0) pg MCHC 32.8 (31.0-36.0) g/dl RDW 15.4 (11.0-16.0) % Plt Count 254 (160-400) X10*3/uL MPV 11.6 (9.4-12.4) fL Immature Gran % (Auto) 0.5 H (0.0-0.4) % Neut % (Auto) 57.7 (45-73) % Lymph % (Auto) 31.0 (20-40) % [place] % (Auto) 9.2 (2-11) % Eos % (Auto) 0.8 (0-4) % Baso % (Auto) 0.8 (0-2) % Lymph # (Auto) 1.9 (1.2-4.9) X10*3/uL [place] # (Auto) 0.6 (0.1-1.2) X10*3/uL Eos # (Auto) 0.1 (0.0-0.4) X10*3/uL Baso # (Auto) 0.1 (0.0-0.2) X10*3/uL Abs Immat Gran (auto) 0.03 (0.00-0.03) X10*3/uL Absolute Neuts (auto) 3.6 (2.0-8.3) x10*3/uL Absolute Nucleated RBC 0.000 (0.0-0.012) X10*3/uL Nucleated RBC % (auto) 0.0 (0.0-0.2) /100WBC PT 47.7 H D (10.9-12.4) SEC INR 4.2 H (0.9-1.1) Sodium 135 (135-145) mmol/L Potassium 4.7 (3.3-5.1) mmol/L Chloride 98 (96-108) mmol/L Carbon Dioxide 25 (22-29) mmol/L Anion Gap 17 (12-20) BUN 33 H (9-16) mg/dL Creatinine 2.31 H (0.5-1.4) mg/dL Estim Creat Clear Calc 30.7 Estimated GFR 28 Random Glucose 176 H (60-115) mg/dL Calcium 9.3 (8.4-10.2) mg/dL Total Bilirubin 1.6 H (0.0-1.0) mg/dL AST 45 H (5-37) U/L ALT 60 H (0-40) U/L Alkaline Phosphatase 66 (39-117) U/L Troponin I High Sens 66.1 H D 72.6 H (<3.5-35.0) ng/L Total Protein 5.8 L (6.5-8.0) g/dL Albumin 3.8 (3.5-5.0) g/dL Urine Color Yellow Urine Appearance Clear Urine pH 6.5 (5.0-9.0) Ur Specific [place] 1.015 (1.005-1.025) Urine Protein Negative (Neg-Trace) mg/dL Urine Glucose (UA) >=1000 H (Negative) mg/dL Urine Ketones Negative (Negative) mg/dL Urine Blood Negative (Negative) Urine Nitrite Negative (Negative) Ur Leukocyte Esterase Negative (Negative) Urine RBC 0-2 (0-2) /HPF Urine WBC 0-5 (0-5) /HPF Ur Squamous Epith Cells 0-2 (0-2) /HPF Urine Bacteria None Seen (None Seen) Hyaline Casts 3-5 (0-2) /LPF Independent Interpretation I performed an independent interpretation of an: EKG External Record Review External record reviewed: Prior outpatient labs and Prior outpatient radiology Discharge Plan Discharge Clinical Impression: Weakness, Elevated troponin, LY (acute kidney injury) Patient Disposition: Admitted As Inpatient Print Language: [place]
[2025-05-14 21:05] LABS: Troponin-I High Sensitivity 72.6 ng/L (<3.5-35.0)
[2025-05-14 22:25] VITALS: BP 97/66; PULSE 56; RESP 21; O2SAT 97
[2025-05-14 22:37] VITALS: TEMP 35.1
--- NOTE | 2025-05-14 23:16 | PM.IMHP ---
History of Present Illness Date of Service: 05/14/25 Attending physician on admission: Tanner Moscoso Chief Complaint: weakness Patient is a 75-year-old male with past medical history HFrEF, RBBB, CAD/AR/ PCI (2020, 2022), gallstones, benign brain mass, COPD/asthma, AFIB on amiodorone and eliquis, with HX of multiple Cardioversions, hypertension, hyperlipidemia, depression, history of alcohol abuse now using intermittently, BPH, NIDDM on GLP-1 with chronic constipation, peripheral neuropathy, allergic rhinitis, visual hallucinations ghosts , recent admission [facility] for shock liver secondary to most likely cardiorenal syndrome vs amiodrone, TEA on CPAP, pulmonary hypertension, Hearing loss was sent to the emergency department by the cardiology department at [facility] after being seen as an outpatient and having labs drawn which notd hyperkalemia. Patient was also complaining of profound weakness that started earlier in the morning. Patient was attempting to get out of bed and instead slid off the bed and hit his bottom when he landed on the floor. In addition patient stated he hit the bedside table but denied a hit to the head. Patient stated it took a long period of time for him to be able to get himself up off the floor. Patient did not have an emergency device to request assistance and cell phone was not close by. Upon standing, patient felt extremely wobbly but made it to the bathroom. Patient was attempting to take a shower but instead got into the bathtub and took a bath. Again patient stated he was having a hard time standing up and he called his son. Patient was trying to get ready for his appointment with Cardiology. Patient's son was able to help the patient make it to the appointment and from there as above patient was directed to the ED after his labs came back abnormal with an elevated potassium and evidence of LY. It should be noted that patient recently moved from [place] to the [facility] to be closer to family due to multiple health issues. Approximately 3-4 weeks prior, patient and son drove from [place] to [place]. During the trip, patient was admitted to [facility] in [facility] for sudden onset all-over body pain with numbness in the left facial area and suspicion for stroke. Patient was admitted due to shock liver and the potential sources were cardiorenal vs amiodorone. Patient states he did not have a stroke. Patient was told to stop his amiodarone and was discharged and made it to [place]. Patient's current plan is to live alone in his own apartment with the support of his family. Since arrival patient has been following with [facility] for primary care and Cardiology care. Patient was seen in the ED May 06 for chest pain and was transferred to [facility] for further evaluation. There was thoughts that patient would require evaluation in the laboratory phlebotomist based on ECG and clinical presentation, but upon arrival to [facility], his EKG was normal and there was no indication for emergent intervention. Echo done at [facility] indicated an EF of 48% with tethering of both leaflets of the mitral valve and moderate to severe mitral valve regurgitation with moderate tricuspid valve regurgitation. Patient also had evidence of a small pericardial effusion. Patient underwent a nuclear study for myocardial perfusion and diagnosis was scar at the basal apical inferior wall, EF 38% at rest and 39% with stress. Since that visit, patient has been told by Cardiology to resume his amiodarone. Patient's rhythm today notes a first-degree AV block, HR 58 with a right bundle-branch block and a QTC prolonged at 570 uncorrected. In addition patient's INR is 4.2 on Eliquis with no spontaneous bleeding but notable bruising on both arms status post fall earlier prior to ED arrival. Workup in the emergency department included chest x-ray which noted a right lower lobe hazy consolidation possibly suggesting pneumonia with vascular congestion and no pleural effusions. CT of the abdomen and pelvis are pending. No indication for CT of the head or cervical spine in the ED. Repeat potassium 4.7 without intervention. Patient's creatinine 2.31 with a creatinine clearance of 30.7 and a GFR of 28. Total bilirubin 1.6, AST 45 and ALT 60. NT BNP 3631. Creatinine kinase 58. Magnesium 1.9 and patient received 2 g of magnesium. Patient has not had any issues with hypoglycemia. Pt's body temp is running low. Warm blankets added. Do not suspect cardiogenic shock as pt is making urine, is not clammy or experiencing AMS, respiratory distress. Patient does have chronic constipation and is on a GLP-1, but no obvious presentation of bowel obstruction or ileus. Patient at rest currently denies any chest pain and states that he no longer uses nitroglycerin sublingual as he did not receive a prescription renewal back in [place]. Patient denies any shortness of breath at rest currently. Patient denies any burning or pain with urination or problems with urinating and denies any prostate history. Patient is not having any nausea, vomiting or abdominal pain. Patient denies any history of smoking, had a significant problem with alcohol after he experienced a divorce at age 29 and stopped soon after age 39 but occasionally still has a beer intermittently. Prior patient would drink gin and tonics and beers when abusing alcohol. Patient denies any marijuana use or history of illicit drug use. Patient was tested for hepatitis during his admission in [place], [place] for shock liver and stated he was negative for hepatitis AB or C and son was able to confirm this. Review of Systems Review of Systems: Patient currently denying any chest pain at rest, shortness of breath at rest, abdominal pain, nausea/vomiting, diarrhea, burning or pain with urination. Patient is having problems with constipation occasionally will strain. Patient denies any lower leg pain. Patient denies any headache or visual changes. Yes all other systems are reviewed and are negative [facility] Medical History (Updated 05/15/25 @ 01:26 by JENNIFER Tony-KISHA) Hypertension Constipation Gallstone Depression Visual hallucination Myocardial infarct CAD (coronary artery disease) History of cardioversion Diabetes 1.5, managed as type 2 BPH (benign prostatic hyperplasia) Shock liver VERONICA (nonalcoholic steatohepatitis) History of alcohol abuse Essential hypertension A-fib Mass, brain Sarcoidosis GERD (gastroesophageal reflux disease) Hyperlipidemia Type 2 diabetes mellitus CHF (congestive heart failure) Cognitive capacity: Alert and orientated x3, and severely hard of hearing Functional capacity: uses cane/walker Pertinent family history: Father with history of sudden secondary to cardiac manifestation Surgical History (Updated 05/15/25 @ 01:26 by CAMMY Tony) H/O heart artery stent Social History Household Members: None Housing: House Do you presently have visiting nurse or other home services: No Unable to assess alcohol history related to: Unknown Comment: med tele Patient Tobacco Use Status: Never used Tobacco Smoked in Last 30 Days: No Use of substances other than those prescribed or required for medical reasons: No Advance Directives: No Advance Directives Information Provided: Yes Nutrition Risks: No Nutritional Risk service: Yes Ebola Risk: Travel/Contact With Anyone From Affected Area/s: No Has Patient Experienced Ebola Symptoms: No Meds Allergies Allergy/AdvReac Type Severity Reaction Status Date / Time erythromycin base AdvReac Unknown Verified 05/14/25 18:48 lisinopril AdvReac Unknown Verified 05/14/25 18:48 Penicillins AdvReac Unknown Verified 05/14/25 18:48 Home Medications ?Medication ?Instructions ?Recorded ?Confirmed ?Last Taken ?Type albuterol sulfate 90 mcg/actuation 2 puff inhalation Q4-6H PRN 03/08/25 05/02/25 Unknown History aerosol inhaler Shortness Of Breath Or Wheezing bupropion HCl 150 mg tablet,12 hr 150 mg PO DAILY 03/08/25 05/15/25 Unknown History sustained-release cholecalciferol (vitamin D3) 50 50 mcg PO DAILY 03/08/25 05/02/25 Unknown History mcg (2,000 unit) capsule (Vitamin D3) empagliflozin 25 mg tablet 25 mg PO DAILY 03/08/25 05/15/25 03/09/25 08:30 History (Jardiance) gabapentin 400 mg capsule 400 mg PO BID 03/08/25 05/15/25 Unknown History losartan 50 mg tablet 50 mg PO BID 03/08/25 05/15/25 Unknown History semaglutide 1 mg/dose (4 mg/3 mL) 1 mg subcut FR 03/08/25 05/15/25 03/07/25 History subcutaneous pen injector (Ozempic) tamsulosin 0.4 mg capsule 0.4 mg PO DAILY 03/08/25 05/15/25 Unknown History venlafaxine 75 mg capsule,extended 75 mg PO DAILY@199903/08/25 05/02/25 Unknown History release 24 hr venlafaxine 75 mg capsule,extended 150 mg PO DAILY@0803/08/25 05/02/25 Unknown History release 24 hr aspirin 81 mg tablet 81 mg PO DAILY 05/02/25 05/15/25 Unknown History cetirizine 10 mg tablet 10 mg PO DAILY 05/02/25 05/02/25 Unknown History furosemide 20 mg tablet (Lasix) 20 mg PO DAILY 05/02/25 05/15/25 Unknown History hydralazine 10 mg tablet 10 mg PO BID 05/02/25 05/02/25 Unknown History metformin 500 mg tablet,extended 500 mg PO DAILY 05/02/25 05/15/25 Unknown History release 24 hr fenofibrate micronized 130 mg 130 mg PO DAILY 05/15/25 05/15/25 Unknown History capsule potassium chloride 20 mEq 20 meq PO DAILY 05/15/25 05/15/25 Unknown History tablet,extended release(part/cryst) venlafaxine 75 mg capsule,extended 225 mg PO DAILY 05/15/25 05/15/25 Unknown History release 24 hr Physical Exam Vital Signs and Narrative: Vital Signs: Last Vital Signs Temp 95.2 F L 05/14/25 22:37 Pulse 56 05/14/25 22:25 Resp 21 H 05/14/25 22:25 BP 97/66 05/14/25 22:25 Pulse Ox 97 05/14/25 22:25 O2 Del Method Room Air 05/14/25 22:25 BMI result Body Mass Index 23.7 Pt A/OX3, NAD NEURO: CN II-XII intact HEENT: PERRLA, sclera nonicteric, lips pale and dry, nares patent, no epistaxis, pt very PALA Cardiac: S1S2 [place], systolic murmur, mild JVD Pulmonary: Lungs DIminshed B ABD: BS X4, no tenderness, guarding, or rebound : no CVT, no bladder distension, pt is making urine EXT: no edema, skin warm Psych: calm, insight good Skin: bruising noted over both forearms, no other rashes or lesions Results Labs 05/15/25 04:50 05/15/25 04:50 Labs: Laboratory Results - last 24 hr 05/14/25 05/14/25 05/14/25 18:39 19:33 20:32 MCV 88.0 MCH 28.9 MCHC 32.8 RDW 15.4 Plt Count 254 MPV 11.6 Immature Gran % (Auto) 0.5 H Neut % (Auto) 57.7 Lymph % (Auto) 31.0 [place] % (Auto) 9.2 Eos % (Auto) 0.8 Baso % (Auto) 0.8 Lymph # (Auto) 1.9 [place] # (Auto) 0.6 Eos # (Auto) 0.1 Baso # (Auto) 0.1 Abs Immat Gran (auto) 0.03 Absolute Neuts (auto) 3.6 Absolute Nucleated RBC 0.000 Nucleated RBC % (auto) 0.0 PT 47.7 H D INR 4.2 H Anion Gap 17 Estim Creat Clear Calc 30.7 Estimated GFR 28 Random Glucose 176 H Calcium 9.3 Total Bilirubin 1.6 H AST 45 H ALT 60 H Alkaline Phosphatase 66 Troponin I High Sens 66.1 H D 72.6 H Total Protein 5.8 L Albumin 3.8 Urine Color Yellow Urine Appearance Clear Urine pH 6.5 Ur Specific [place] 1.015 Urine Protein Negative Urine Glucose (UA) >=1000 H Urine Ketones Negative Urine Blood Negative Urine Nitrite Negative Ur Leukocyte Esterase Negative Urine RBC 0-2 Urine WBC 0-5 Ur Squamous Epith Cells 0-2 Urine Bacteria None Seen Hyaline Casts 3-5 Assessment and Plan (1) LY (acute kidney injury): Status: Acute (2) Weakness: Status: Acute Plan Patient is a 75-year-old male with past medical history HFrEF, RBBB, CAD/AR/ PCI (2020, 2022), gallstones, benign brain mass, COPD/asthma, AFIB on amiodorone and eliquis, with HX of multiple Cardioversions, hypertension, hyperlipidemia, depression, history of alcohol abuse now using intermittently, BPH, NIDDM on GLP-1 with chronic constipation, peripheral neuropathy, allergic rhinitis, visual hallucinations ghosts , recent admission [facility] for shock liver secondary to most likely cardiorenal syndrome vs amiodrone, TEA on CPAP, pulmonary hypertension, Hearing loss was sent to the emergency department by the cardiology department at [facility] after being seen as an outpatient and having labs drawn. Patient's potassium was elevated, 5.7. Patient was also complaining of profound weakness that started earlier in the morning with report of a fall, unwitnessed, no strike to the head. Chest x-ray notes consolidation right lower lobe suspicious for pneumonia. LY Suspect Cardiorenal syndrome Nephrology consulted Jardiance held UA and urine studies requested Avoid hypotension and nephrotoxic medications Hold losartan and metformin Hyperkalemia Initially 5.7 outpatient labs, without intervention repeat testing 4.7 Continue telemetry Noted LY secondary to possible cardiorenal syndrome Continue to trend potassium Elevated INR on Eliquis with recent Shock liver (04/21) AST ALT slightly elevated TBILI and DBILI elevated Abdomnal CT scan pending Repeat INR in AM H.H stable, no evidence of spontaneous bleeding or reason to reverse INR at this time Pt denies recent alcohol use Pneumonia right lower lobe, new consolidation Ceftriaxone and azithromycin initiated empirically No leukocytosis, fever or productive cough, no evidence of sepsis or hypoxia Will screen patient for COVID and flu No evidence of dysphagia or possible aspiration Weakness/ recent falls PT EVAL STR may be indicated Total CK within normal limits HFrEF, elevated troponins Cardiology consulted Echo ordered Noted consistent low body temp, improving with tx Do not suspect cardiogenic shock, as pt is warm, making urine, is not clammy or experiencing AMS, tachypnea, hypoxia Pt has extensive cardiac HX, recent transfer to [facility] from [facility] for chest pain 05/06 Daily weights, Fluid Allowance 1500 mls Measure I/Os Qshift - pt able to use urinal, deferred ruth Low Na diet Antihypertensives on hold as patient has had borderline blood pressures with maps greater than 60 PAFIB - currently in First Degree AVB with RBBB, prolonged Qtc 570 Pt resumed amiodorone with last outpatient appt with [facility] cardiology - this was held after previous admission in [place], 04/21, for shock liver Amiodarone dose reduced to 200 mg daily as of 05/14/25 during outpatient visit with Cardiology noting prolonged QTC LFTs manpreet elevated Hold beta-kim until patient is seen by Cardiology INR elevated, holding Eliquis for now Telemetry MG 1.9, administered 2 GMS IV TSH WNL Repeat EKG in the a.m. CAD/ AR/HX of PCI X2 (2020, 2022) Cardiology consulted No evidence of ischemia or chest pain Aspirin held due to elevated INR Continue statin Continue telemetry Constipation Mirilax scheduled daily Senna HS MOM prn Patient is on Ozempic and education provided regarding long-term constipation issues and potential for further bowel complications NIDDM/ diabetic neuropathy SSI Metformin held secondary to LY Diabetic diet Patient normally on Ozempic weekly on Fridays/ constipation only complication Patient normally on gabapentin 400 mg b.i.d., will hold noting patient's current renal function Hyperlipidemia Continue statin if CMP in AM is stable LFTs mildly elevated and CK normal Cardiac diet Depression No current SI or report of active hallucination Continue antidepressants per MED REC if Qtc corrected stabilizes BPH Continue tamsulosin UA negative for heme or UTI DVT prophylaxis: Held due to elevated INR Med rec pending Full Code status Patient's son Travis Walker present for admission and very helpful with timelines and information. Phone number is [phone]. Quality Stroke Does the patient have a stroke diagnosis?: No Reason for No Anti-thrombotic by Day Two: Contraindicated VTE Prior VTE?: No VTE Risk Level:: Medical - moderate - high VTE Device Contraindication: N/A - Device Ordered VTE Drug Contraindication: Treatment Not Indicated
[2025-05-14 23:37] LABS: NT Pro B Type Natriuretic Pept 3631.8 pg/mL (<300)
[2025-05-15] VITALS (11 sets, daily range): BP systolic 94–132; BP diastolic 52–92; PULSE 53–64; RESP 16–20; TEMP 35.4–36.4; O2SAT 96–100; BMI 30.8
[2025-05-15 00:09] LABS: Magnesium 1.9 mg/dL (1.6-2.6)
[2025-05-15 01:07] LABS: Free T4 (Free Thyroxine) 1.00 ng/dL (0.71-1.85)
[2025-05-15] MEDS: Magnesium Sulfate/H2O 2 GM/50 ML PIGGYBACK IV (01:14)
[2025-05-15] MEDS: 0.9 % Sodium Chloride Flush 3 ML SYRINGE IVFLUSH ×2 (01:14→20:59)
[2025-05-15] MEDS: Furosemide 20 MG/2 ML VIAL 10 MG IVPUSH (01:20)
--- NOTE | 2025-05-15 01:26 | PC.NURSE ---
Patient is alert and oriented x4, [place]. Patient denies any pain/discomfort at this time. Patent medicated per OCT. Patient requested and given a a turkey sandwich with water, tolerated well. Urinal placed within patient's reach. Patient is able to make his needs know, call melgar in patient's reach.
--- NOTE | 2025-05-15 02:32 | PC.NURSE ---
Per Arielle hospitalist OK to draw 2 sets of blood cultures only, blood draw for lactic acid is not needed.
--- NOTE | 2025-05-15 02:59 | PC.NURSE ---
2 sets of blood cultures drawn and sent to lab for processing, patient medicated per OCT.
[2025-05-15 04:14] LABS: COVID-19 Test Negative (Negative); IDNOW Serial# 08D9AD1C
[2025-05-15 04:15] LABS: IDNOW Serial# 6674DD1D; Influenza B2 Negative (Negative)
[2025-05-15 04:55] LABS: MANUAL DIFF FLAG NO
[2025-05-15 04:56] LABS: Hematocrit 37.5 % (42.0-52.0); Hemoglobin 12.4 g/dl (14.0-18.0); Imm Gran Abs Auto 0.02 X10*3/uL (0.00-0.03); Imm Gran Pct Auto 0.3 % (0.0-0.4); Lymphocytes Absolute Auto 2.1 X10*3/uL (1.2-4.9); Mean Corpuscular HGB Conc 33.1 g/dl (31.0-36.0); Mean Corpuscular Hemoglobin 28.6 pg (27.0-33.0); Mean Corpuscular Volume 86.4 fL (80.0-98.0); NRBC Abs Auto 0.000 X10*3/uL (0.0-0.012); NRBC Pct Auto 0.0 /100WBC (0.0-0.2); Platelet Count 245 X10*3/uL (160-400); Red Blood Count 4.34 X10*6/uL (4.60-5.80); White Blood Count 6.4 X10*3/uL (4.8-10.8)
[2025-05-15 05:12] LABS: Alanine Aminotransferase 57 U/L (0-40); Albumin Level 3.6 g/dL (3.5-5.0); Alkaline Phosphatase 67 U/L (39-117); Anion Gap 16 (12-20); Aspartate Amino Transferase 41 U/L (5-37); Blood Urea Nitrogen 33 mg/dL (9-16); Calcium 9.3 mg/dL (8.4-10.2); Carbon Dioxide 23 mmol/L (22-29); Chloride 101 mmol/L (96-108); Creatinine Clr Calc Pharmacy 31.8; Estimated Glomerular Filt Rate 29; Potassium 4.9 mmol/L (3.3-5.1); Sodium 135 mmol/L (135-145); Total Protein 5.7 g/dL (6.5-8.0)
[2025-05-15 05:36] LABS: INTERNATIONAL NORM RATIO 3.2 (0.9-1.1); Prothrombin Time 36.2 SEC (10.9-12.4)
[2025-05-15] MEDS: Albuterol/Iprat 2.5/0.5MG 3 ML AMPUL.NEB INHALE (06:01)
--- NOTE | 2025-05-15 06:30 | PC.NURSE ---
Notified [facility] Sunday of rectal temp, BP and HR. AT this time no new orders.
--- NOTE | 2025-05-15 07:00 | CA_ITS ---
Transthoracic Echocardiogram Patient (Last, First, Middle): Stone Walker, Gender: Male Date of : 1950 Age: 75 Procedure Date: 05/15/2025 Procedure Type: Transthoracic Echocardiogram Location: [facility] Height: 185.42 cm Weight: 81.65 kg BSA: 2.06 m2 Heart Rate: bpm BP: 99 / 65 mmHg English Tutor: TO Referring MD: Arielle CHAWLA Symptoms: HFrEF, suspect worsening HF Study Quality: Adequate with contrast ECG Rhythm: Sinus Conclusions: - The left ventricular systolic function is mild to moderately decreased. The visually estimated ejection fraction is between 40-45%. The calculated ejection fraction is 46% by biplane method. - Moderate biatrial enlargement. - There is moderate to severe mitral valve regurgitation. - There is moderate tricuspid valve regurgitation. Findings Procedure Information Contrast agent, definity, is being given per protocol without apparent complications. Left Ventricle Normal left ventricular cavity size. There is normal left ventricular wall thickness. The left ventricular systolic function is mild to moderately decreased. The visually estimated ejection fraction is between 40-45%. The calculated ejection fraction is 46% by biplane method. There is evidence of regional wall motion abnormalities. Evidence suggests grade III (severe) diastolic dysfunction. Wall Motion Rest Echo Findings The inferoseptal wall, the basal inferior, mid inferior, and basal inferolateral segments are akinetic. Right Ventricle Moderately increased right ventricular cavity size. There is moderately decreased right ventricular systolic function. Atria Moderate biatrial enlargement. Aortic Valve There is a normal trileaflet aortic valve. There is no aortic valve stenosis. There is no aortic valve regurgitation. Mitral Valve There is mild anterior and posterior mitral leaflet thickening. The posterior mitral leaflet has restricted mobility. There is moderate to severe mitral valve regurgitation. The mitral regurgitation jet is directed anteriorly. There is no mitral valve stenosis. Pulmonic Valve The pulmonic valve is likely normal. Tricuspid Valve There is moderate tricuspid valve regurgitation. There is no evidence of pulmonary hypertension. Great Vessels There is mild dilatation of the ascending aorta measuring 4.00 cm. Small plaque is seen in the sino tubular ridge. Venous The inferior vena cava was not well visualized. The inferior vena cava is dilated and collapses greater than 50% with inspiration. Pericardium/Pleural There is no evidence of pericardial effusion. Prior Study Comparison No significant change compared to prior study dated: 05/07/2025. (prior study at [facility]). Measurements 2D Linear Measurements IVSd: 0.94 0.6-0.9/0.6-1.0 cm LVIDd: 5.21 3.9-5.3/4.2-5.9 cm LVIDd Index: 2.53 2.4-3.2/2.2-3.1 cm/m2 LVIDs: 4.16 2.0-3.6 cm LVPWd: 0.79 0.7-1.1 cm LA Diam: 4.70 2.7-3.8/3.0-4.0 cm LAIDs Index: 2.28 1.5-2.3 cm/m2 LV Mass: 200.55 67-162/88-224 g LV Mass Index: 97.35 43-95/49-115 g/m2 LVOT Diam: 2.10 3.0+(-)1.3 cm 2D Systolic Function EF 4C: 43.30 >55% EF 2C: 46.90 >55% EF BiP: 45.50 >55% Mitral Valve MV Pk E: 1.03 MV PK A: 0.27 MV Decel Time: 207.00 E/A: 3.80 E'Lateral: 6.96 E'Medial: 5.04 E/E' Med: 20.40 E/E' Lat: 14.80 PHT: 61.00 MVA PHT: 3.61 Decel Emanuel: 4.97 MR Vol - PW Dopp: 189.00 MR VTI: 1.50 MR ERO: 126.00 MR Alias Tristan: 0.35 MR RAD: 1.60 Aortic Valve AoV Pk Tristan: 0.79 AoV Mn Tristan: 0.56 AoV VTI: 0.13 AoV Pk Grad: 2.00 Aov Mn Grad: 1.00 LIEN Cont.VTI: 2.28 LVOT LVOT Pk Tristan: 0.51 LVOT Mn Tristan: 0.35 LVOT VTI: 0.09 LVOT Pk Grad: 1.00 LVOT Mn Grad: 1.00 LVOT Diam: 2.10 LVOT Area: 3.46 Diastolic Function MV Pk E: 1.03 MV Pk A: 0.27 E/A: 3.80 E'Medial: 5.04 E/E' Med: 20.40 E' Laterial: 6.96 E/E' Lat: 14.80 Right Ventricle TAPSE (mm): 10.20 TVS' Tristan: 6.36 Tricuspid Valve TR Pk Tristan: 1.99 TR Pk Grad: 16.00 RA Press: 15.00 RVSP: 31.00 Great Vessels Aorta Sinus of Valsalva: 3.66 2.0-3.5 cm Ao Asc: 4.00 2.1-3.4 cm Updated in Other Vendor System with Status of Final James Doan MD electronically signed on 05/15/2025 5:35:44 PM with status of Final
[2025-05-15 07:35] LABS: Glucose, Whole Blood 85 mg/dL (60-115)
--- NOTE | 2025-05-15 08:00 | ECG_ITS ---
Test Reason : recheck qtc Blood Pressure : */* mmHG Vent. Rate : 60 BPM Atrial Rate : 60 BPM P-R Int : 278 ms QRS Dur : 190 ms QT Int : 540 ms P-R-T Axes : 8 105 2 degrees QTcB Int : 540 ms Sinus rhythm with 1st degree A-V block Right bundle branch block Abnormal ECG When compared with ECG of 14-May-2025 18:33, No significant change was found Referred By: Arielle Brand Electronically Signed By: YANIQUE MOHR
--- NOTE | 2025-05-15 08:49 | PHA.MEDREC ---
Addendum entered by Eliza Hyde [facility] 05/17/25 15:12: Patient told Dr. Muñiz that he does not take bupropion SR 150 mg or fenofibrate 130 mg. Home med list updated. Addendum entered by Jen Pelaez [facility] 05/15/25 09:13: following up on directions on amiodarone. Addendum entered by Jen Pelaez [facility] 05/15/25 09:12: reviewed by [facility]. Original Note: Pharmacy Consult ? Medication Reconciliation Pharmacy has reviewed the medication reconciliation done by nursing. Spoke to patient and he was able to say yes or no to his medications .Patient last had his medications yesterday.
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
--- NOTE | 2025-05-15 10:59 | MHC.CM.PN ---
DX LY elevated INR Patient from [place] is staying with son. Plan is to remain in [facility] He is living with his son. [place] aids not working independent with all functional mobility. He has not arranged for a new PCP. The [facility] brochure provided during 03/21 admission. The brochure has been provided to the patient again. Patient will not qualify for home services because he does not have a PCP. A copy of pt's HCP has been requested. DP Return to his son's home. Son will provide transportation at discharge. DP home with family support + transport.
[2025-05-15 11:32] LABS: Glucose, Whole Blood 118 mg/dL (60-115)
--- NOTE | 2025-05-15 13:11 | P.PNIM_ITS ---
Subjective Subjective Date of Service: 05/15/25 Interval History: Multiple complaints - complex. The patient is hard of hearing, but is a reliable historian. History is supported by collateral by son. Patient endorses that for the past few weeks he has had worsening shortness of breath; at rest and exertion. He notes that his dyspnea worsens when he stands upright. He denies retrosternal chest discomfort, pressure, pain, palpitations, dizziness or loss of consciousness. He denies cough phlegm production. Abdomen has become more distended, with symptoms of constipation, nausea, belching. Recent diagnosis of hepatic cirrhosis and shock liver in [place] around 1 month ago. Pt & son unsure of etiology of shock liver, but was presumed to be due to AFib. Suspicion was that amiodarone could have been contributing, and this was discontinued. The patient reverted back into atrial fibrillation and was planned for cardioversion at [facility]. He has since been resumed on amiodarone, and remains with a regularly irregular heart rate. Currently, the patient is most pertinent complaint is shortness of breath on exertion, in particular while standing. Review of Systems Review of Systems: Yes all other systems are reviewed and are negative Physical Exam 2 Exam: Exam: General: A&O x3, oriented to time place person and situation, comfortable, no pain Cardiac: S1, S2 auscultated with no S3/4, no MRG. Well perfused. Elevated JVP to the angle of the mandible. Heart rate regularly regular. Respiratory: Decreased inspiratory and expiratory breath sounds bilaterally particularly at the bases. Mild crepitations auscultated at the bases bilaterally. The patient is in notably more short of breath when sitting upright - Platypnoea. No cyanosis or respiratory distress otherwise. GI/ : No abdominal pain on palpation, no masses or distentions. MSK: Normal ambulation without pain at bony prominences or musculature Neurological: Normal neurological examination on overview, without obvious CN II-XII abnormalities. Vital Signs: Vital Signs: Last Vital Signs Temp 97.3 F 05/15/25 12:00 Pulse 64 05/15/25 12:00 Resp 20 05/15/25 12:00 BP 115/77 05/15/25 12:00 Pulse Ox 98 05/15/25 12:00 O2 Del Method CPAP 05/15/25 12:00 O2 Flow Rate 2 05/15/25 12:00 BMI result Body Mass Index 30.8 Objective Data Active Medications Acetaminophen (Acetaminophen 325 Mg Tablet) 650 mg PO Q6H PRN PRN Reason: Pain, Mild 1-3,fever,headache Last Admin: 05/15/25 05:39 Dose: 650 mg Documented By: ROD Albuterol/Ipratropium (Albuterol/Iprat 2.5/0.5mg 3 Ml Ampul.Neb) 3 ml INHALE Q4H PRN PRN Reason: Shortness of Breath/Wheezing Last Admin: 05/15/25 06:01 Dose: 3 ml Documented By: STEPHAN Calcium Carbonate (Calcium Carbonate 750 Mg Tab.Chew) 750 mg PO Q4H PRN PRN Reason: Heartburn Ceftriaxone Sodium (Ceftriaxone Sodium 1 Gm Vial) 1 gm IVPUSH 2200 [facility] Last Admin: 05/15/25 02:43 Dose: 1 gm Documented By: PRATEEK Dextrose (Dextrose 50 % 25 Gm/50 Ml Syringe) 25 gm IVPUSH Q15M PRN; Protocol PRN Reason: per Hypoglycemia Standing Ord. Glucose (Glucose Gel 15 Gm Gel..Gram.) 15 gm PO Q15M PRN; Protocol PRN Reason: per Hypoglycemia Standing Ord. Azithromycin 500 mg/ Sodium (Chloride) 250 mls @ 125 mls/hr IV 0 [facility] Last Infusion: 05/15/25 04:43 Dose: Infused Documented By: ROD Insulin Human Lispro (Insulin Lispro 100 Unit/Ml 3 Ml Vial) 0 unit SUBCUT QIDACHS [facility]; Protocol Last Admin: 05/15/25 12:00 Dose: Not Given Documented By: EDGAR Non-Admin Reason: No Insulin Coverage Magnesium Hydroxide (Milk Of Magnesia 30 Ml Oral.Susp) 30 ml PO DAILY PRN PRN Reason: Constipation Melatonin (Melatonin 3 Mg Tablet) 6 mg PO BEDTIME PRN PRN Reason: Insomnia Ondansetron HCl (Ondansetron Hcl 4 Mg/2 Ml Vial) 4 mg IVPUSH Q8H PRN PRN Reason: Nausea and Vomiting Polyethylene Glycol (Polyethylene Glycol 3350 17 Gm Powd.Pack) 17 gm PO DAILY [facility] Last Admin: 05/15/25 10:36 Dose: 17 gm Documented By: EDGAR Senna (Sennosides 8.6 Mg Tablet) 17.2 mg PO BEDTIME PRUDENCIO Sodium Chloride (0.9 % Sodium Chloride Flush 3 Ml Syringe) 3 ml IVFLUSH QSHIFT PRUDENCIO Last Admin: 05/15/25 07:00 Dose: Not Given Documented By: JAKOB Non-Admin Reason: Patient Asleep Labs 05/15/25 04:50 05/15/25 04:50 Labs: Laboratory Results - last 24 hr 05/14/25 05/14/25 05/14/25 18:39 19:33 20:32 MCV 88.0 MCH 28.9 MCHC 32.8 RDW 15.4 Plt Count 254 MPV 11.6 Immature Gran % (Auto) 0.5 H Neut % (Auto) 57.7 Lymph % (Auto) 31.0 Brantley % (Auto) 9.2 Eos % (Auto) 0.8 Baso % (Auto) 0.8 Lymph # (Auto) 1.9 Brantley # (Auto) 0.6 Eos # (Auto) 0.1 Baso # (Auto) 0.1 Abs Immat Gran (auto) 0.03 Absolute Neuts (auto) 3.6 Absolute Nucleated RBC 0.000 Nucleated RBC % (auto) 0.0 PT 47.7 H D INR 4.2 H Anion Gap 17 Estim Creat Clear Calc 30.7 Estimated GFR 28 POC Glucose Random Glucose 176 H Calcium 9.3 Magnesium 1.9 Total Bilirubin 1.6 H AST 45 H ALT 60 H Alkaline Phosphatase 66 Total Creatine Kinase 58 Troponin I High Sens 66.1 H D 72.6 H NT-Pro-B Natriuret Pep Total Protein 5.8 L Albumin 3.8 TSH 4.22 H Free T4 1.00 Urine Color Yellow Urine Appearance Clear Urine pH 6.5 Ur Specific Yoder 1.015 Urine Protein Negative Urine Glucose (UA) >=1000 H Urine Ketones Negative Urine Blood Negative Urine Nitrite Negative Ur Leukocyte Esterase Negative Urine RBC 0-2 Urine WBC 0-5 Ur Squamous Epith Cells 0-2 Urine Bacteria None Seen Hyaline Casts 3-5 COVID-19 (SUE) COVID-19 Clin Com Influenza Type A (YANNI) Influenza Type B (YANNI) Influenza A & B Note Blood Type Antibody Screen 05/14/25 05/15/25 05/15/25 23:04 03:56 04:50 MCV 86.4 MCH 28.6 MCHC 33.1 RDW 15.2 Plt Count 245 MPV 12.4 Immature Gran % (Auto) 0.3 Neut % (Auto) 50.7 Lymph % (Auto) 33.5 Brantley % (Auto) 12.2 H Eos % (Auto) 2.0 Baso % (Auto) 1.3 Lymph # (Auto) 2.1 Brantley # (Auto) 0.8 Eos # (Auto) 0.1 Baso # (Auto) 0.1 Abs Immat Gran (auto) 0.02 Absolute Neuts (auto) 3.2 Absolute Nucleated RBC 0.000 Nucleated RBC % (auto) 0.0 PT 36.2 H D INR 3.2 H Anion Gap 16 Estim Creat Clear Calc 31.8 Estimated GFR 29 POC Glucose Random Glucose 114 Calcium 9.3 Magnesium Total Bilirubin 1.1 H AST 41 H ALT 57 H Alkaline Phosphatase 67 Total Creatine Kinase Troponin I High Sens NT-Pro-B Natriuret Pep 3631.8 H Total Protein 5.7 L Albumin 3.6 TSH Free T4 Urine Color Urine Appearance Urine pH Ur Specific Yoder Urine Protein Urine Glucose (UA) Urine Ketones Urine Blood Urine Nitrite Ur Leukocyte Esterase Urine RBC Urine WBC Ur Squamous Epith Cells Urine Bacteria Hyaline Casts COVID-19 (SUE) Negative COVID-19 Clin Com See Note Influenza Type A (YANNI) Negative Influenza Type B (YANNI) Negative Influenza A & B Note See Note Blood Type A Positive Antibody Screen NEGATIVE 05/15/25 05/15/25 07:30 11:29 MCV MCH MCHC RDW Plt Count MPV Immature Gran % (Auto) Neut % (Auto) Lymph % (Auto) Brantley % (Auto) Eos % (Auto) Baso % (Auto) Lymph # (Auto) Brantley # (Auto) Eos # (Auto) Baso # (Auto) Abs Immat Gran (auto) Absolute Neuts (auto) Absolute Nucleated RBC Nucleated RBC % (auto) PT INR Anion Gap Estim Creat Clear Calc Estimated GFR POC Glucose 85 118 H Random Glucose Calcium Magnesium Total Bilirubin AST ALT Alkaline Phosphatase Total Creatine Kinase Troponin I High Sens NT-Pro-B Natriuret Pep Total Protein Albumin TSH Free T4 Urine Color Urine Appearance Urine pH Ur Specific Yoder Urine Protein Urine Glucose (UA) Urine Ketones Urine Blood Urine Nitrite Ur Leukocyte Esterase Urine RBC Urine WBC Ur Squamous Epith Cells Urine Bacteria Hyaline Casts COVID-19 (SUE) COVID-19 Clin Com Influenza Type A (YANNI) Influenza Type B (YANNI) Influenza A & B Note Blood Type Antibody Screen Assessment and Plan (1) Hypertension: Status: Acute (2) Acute HFrEF (heart failure with reduced ejection fraction): Status: Acute (3) CAD (coronary artery disease): Status: Acute (4) A-fib: Status: Acute (5) Cirrhosis: Status: Acute (6) RVF (right ventricular failure): Status: Acute (7) Ascites: Status: Acute (8) Constipation: Status: Acute (9) Weakness: Status: Acute (10) Bilateral pleural effusion: Status: Resolved (11) Acute dyspnea: Status: Inactive Plan 75-year-old male, with a history of 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 Cirrhosis Abdominal ascites moderate volume Elevated INR Recent history of shock liver Patient's LFTs are elevated, with elevated T bili, however were much higher in [place] as per collateral from family members We will request documents to be sent from admission in [place] for further clarification of investigations, workup and impressions. Elevated INR gives impression of coagulopathy in the setting of patient's cirrhosis. PLAN - GI consultation - diagnostic paracentesis ordered - consider furosemide and spironolactone (pending GI recommendations - as current impression is patient is clinically dry) - INR daily - consider vitamin K to reverse elevated INR - Check ammonia - consider lactulose or rifaximin - HOLD ANTICOAGULATION AT THIS TIME - strongly consider MRCP vs portal duplex ultrasonography to rule out PVT LY Suspected cardiorenal syndrome based on outpatient impression Possible hepatorenal syndrome in the setting of patient's cirrhosis and ascites. Urinalysis ordered Ultrasound bilateral renal Ordered Nephrology following-recommendations greatly appreciated UA and urine studies requested Avoid hypotension and nephrotoxic medications Hold losartan and metformin Biventricular CHF reduced ejection fraction Ischemic cardiomyopathy - IL s/p PCI x2 () Pulmonary HTN Tricuspid regurgitation Mitral regurgitation Atrial fibrillation - s/p multiple cardioversions Patient is endorsing significant dyspnea at rest and on exertion. No evidence of ischemia or chest pain This could be 2/2 multifactorial etiologies including pulmonary HTN, RV failure, and portal HTN in the setting of new cirrhosis diagnosis. Further considerations for pulmonary embolism should be raised. Pt has extensive cardiac HX, recent transfer to [facility] from [facility] for chest pain 05/06 Antihypertensives on hold as patient has had borderline blood pressures with maps greater than 60 PLAN - echocardiography - intake/output - daily weights - cardiac diet - continue amiodarone - beta-kim on hold - Eliquis on hold given elevated INR - Aspirin held due to elevated INR - Continue statin Hyperkalemia - progressively improving Initially 5.7 outpatient labs, without intervention repeat testing 4.7 Continue telemetry Noted LY secondary to possible cardiorenal syndrome Continue to trend potassium Pneumonia right lower lobe, new consolidation Ceftriaxone and azithromycin initiated empirically No leukocytosis, fever or productive cough, no evidence of sepsis or hypoxia Will screen patient for COVID and flu No evidence of dysphagia or possible aspiration NIDDM/ diabetic neuropathy - ISS - Metformin held - Diabetic diet - hold Ozempic - hold gabapentin 400 mg b.i.d.; resume with improvement in LY - QUALITY METRICS - VTE: INR supratherapeutic-continue to monitor - resume apixaban once INR below 2 - CODE STATUS: Full code - DIET: Cardiac Total time managing care of this patient today: 60 minutes. Quality Stroke Does the patient have a stroke diagnosis?: No Reason for No Anti-thrombotic by Day Two: Contraindicated VTE Prior VTE?: No VTE Risk Level:: Medical - moderate - high VTE Device Contraindication: N/A - Device Ordered VTE Drug Contraindication: Treatment Not Indicated
--- NOTE | 2025-05-15 14:17 | PM.GICN ---
History of Present Illness Data of Consult Service Date: 05/15/25 Requesting physician: Saira Muñiz Primary Care Provider: None Physician HPI Reason for consult: history of shock liver, cirrhosis, ascites, new LY, platypnoea 75 YM with HFrEF, RBBB, CAD/CT/ PCI (2020, 2022), gallstones, benign brain mass, COPD/asthma, AFIB on amiodorone and eliquis, with HX of multiple Cardioversions, hypertension, hyperlipidemia, depression, history of alcohol abuse (now using intermittently), BPH, NIDDM on GLP-1 with chronic constipation, peripheral neuropathy, allergic rhinitis, visual hallucinations ghosts , recent admission [facility] for shock liver secondary to most likely cardiorenal syndrome vs amiodrone, TEA on CPAP, pulmonary hypertension, Hearing loss. GI consulted for evaluation of cirrhosis complicated by ascites Pt was sent to [facility] on 05/14/25 by [facility] after being seen as an outpatient and labs showed hyperkalemia. Pt reports he was diagnosed with Fatty liver in the past. Has noted progressive abdominal distension for the past 3 weeks without significant lower extremity edema. Patient complained of profound weakness that started earlier in the morning. Patient slid off the bed and hit his bottom and landed on the floor while attempting to get out of his bed. Patient stated it took a long period of time for him to be able to get himself up off the floor. Patient did not have an emergency device to request assistance and cell phone was not close by. Upon standing, patient felt extremely wobbly but made it to the bathroom. Patient was attempting to take a shower but instead got into the bathtub and took a bath. Patient stated he was having a hard time standing up and he called his son. Patient was trying to get ready for his appointment with Cardiology. Patient's son was able to help the patient make it to the appointment and was directed to the ED after his labs came back abnormal with an elevated potassium and evidence of LY. Patient recently moved from [place] to the [facility] to be closer to family due to multiple health issues. Approximately 3-4 weeks prior, patient and son drove from [place] to [place]. During the trip, patient was admitted to [facility] in [facility] for sudden onset all-over body pain with numbness in the left facial area and suspicion for stroke. Patient was admitted due to shock liver and the potential sources were cardiorenal vs amiodorone (states he did not have a stroke). He advised to stop his amiodarone and was discharged and made it to [place] and has been following with [facility] for primary care and Cardiology care. . Patient's current plan is to live alone in his own apartment with the support of his family. 05/06/25 Seen at the ER for chest pain and was transferred to [facility] for further evaluation with cardiac laboratory immunologist based on ECG and clinical presentation On arrival to [facility], his EKG was normal and there was no indication for emergent intervention. Echo done at [facility] indicated an EF of 48% with tethering of both leaflets of the mitral valve and moderate to severe mitral valve regurgitation with moderate tricuspid valve regurgitation and a small pericardial effusion. Patient underwent a nuclear study for myocardial perfusion and diagnosis was scar at the basal apical inferior wall, EF 38% at rest and 39% with stress. He was advised by Cardiology to resume his amiodarone. EKG showed first-degree AV block, HR 58 with a right bundle-branch block and a QTC prolonged at 570 uncorrected. In addition patient's INR is 4.2 on Eliquis with no spontaneous bleeding but notable bruising on both arms status post fall earlier prior to ED arrival. Labs in ED showed potassium 4.7 without intervention. Patient's creatinine 2.31 with a creatinine clearance of 30.7 and a GFR of 28. Total bilirubin 1.6, AST 45 and ALT 60. NT BNP 3631. Creatinine kinase 58. Magnesium 1.9 and patient received 2 g of magnesium. CXR showed RLL hazy consolidation possibly suggesting pneumonia with vascular congestion and no pleural effusions. Patient has not had any issues with hypoglycemia. Pt's body temp is running low. Warm blankets added. Patient has chronic constipation and is on a GLP-1, but no obvious presentation of bowel obstruction or ileus. Patient at rest currently denies any chest pain and states that he no longer uses nitroglycerin sublingual as he did not receive a prescription renewal back in [place]. Patient denies any shortness of breath at rest currently. Patient is not having any nausea, vomiting or abdominal pain. Patient denies any history of smoking, had a significant problem with alcohol after he experienced a divorce at age 29 and stopped soon after age 39 but occasionally still has a beer intermittently once a month Prior patient would drink gin and tonics and beers when abusing alcohol. Patient denies any marijuana use or history of illicit drug use. 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 05/15/[address] SCAN SHOWED: Nodular liver contour with abdominopelvic ascites and bilateral pleural effusions, right larger than left, suggestive of cirrhosis Marked gastric distention without mechanical cause for bowel obstruction 0.6 cm nodule in the right lower lobe. Other nodules were present on CT angiogram of the chest 03/02/2025. Continue follow-up per Fleischner criteria. Review of Systems Review of Systems: Yes all other systems are reviewed and are negative [facility] Past Medical History Medical History (Updated 05/15/25 @ 13:19 by Saira Muñiz MD) Hypertension Constipation Gallstone Depression Visual hallucination Myocardial infarct CAD (coronary artery disease) History of cardioversion Diabetes 1.5, managed as type 2 BPH (benign prostatic hyperplasia) Shock liver VERONICA (nonalcoholic steatohepatitis) History of alcohol abuse Essential hypertension A-fib Mass, brain Sarcoidosis GERD (gastroesophageal reflux disease) Hyperlipidemia Type 2 diabetes mellitus CHF (congestive heart failure) Surgical History Surgical History H/O heart artery stent Social History Social History Household Members: None Housing: Apartment Do you presently have visiting nurse or other home services: No Unable to assess alcohol history related to: Unknown Comment: med tele Patient Tobacco Use Status: Never used Tobacco service: Yes Travel History Ebola Risk: Travel/Contact With Anyone From Affected Area/s: No Has Patient Experienced Ebola Symptoms: No Meds Allergies Allergy/AdvReac Type Severity Reaction Status Date / Time erythromycin base AdvReac Unknown Verified 05/14/25 18:48 lisinopril AdvReac Unknown Verified 05/14/25 18:48 Penicillins AdvReac Unknown Verified 05/14/25 18:48 Active Medications: Current Medications Acetaminophen (Acetaminophen 325 Mg Tablet) 650 mg PO Q6H PRN PRN Reason: Pain, Mild 1-3,fever,headache Last Admin: 05/15/25 05:39 Dose: 650 mg Albuterol/Ipratropium (Albuterol/Iprat 2.5/0.5mg 3 Ml Ampul.Neb) 3 ml INHALE Q4H PRN PRN Reason: Shortness of Breath/Wheezing Last Admin: 05/15/25 06:01 Dose: 3 ml Calcium Carbonate (Calcium Carbonate 750 Mg Tab.Chew) 750 mg PO Q4H PRN PRN Reason: Heartburn Ceftriaxone Sodium (Ceftriaxone Sodium 1 Gm Vial) 1 gm IVPUSH 2200 [facility] Last Admin: 05/15/25 02:43 Dose: 1 gm Dextrose (Dextrose 50 % 25 Gm/50 Ml Syringe) 25 gm IVPUSH Q15M PRN; Protocol PRN Reason: per Hypoglycemia Standing Ord. Glucose (Glucose Gel 15 Gm Gel..Gram.) 15 gm PO Q15M PRN; Protocol PRN Reason: per Hypoglycemia Standing Ord. Azithromycin 500 mg/ Sodium (Chloride) 250 mls @ 125 mls/hr IV 220 [facility] Last Infusion: 05/15/25 04:43 Dose: Infused Insulin Human Lispro (Insulin Lispro 100 Unit/Ml 3 Ml Vial) 0 unit SUBCUT QIDACHS [facility]; Protocol Last Admin: 05/15/25 12:00 Dose: Not Given Magnesium Hydroxide (Milk Of Magnesia 30 Ml Oral.Susp) 30 ml PO DAILY PRN PRN Reason: Constipation Melatonin (Melatonin 3 Mg Tablet) 6 mg PO BEDTIME PRN PRN Reason: Insomnia Ondansetron HCl (Ondansetron Hcl 4 Mg/2 Ml Vial) 4 mg IVPUSH Q8H PRN PRN Reason: Nausea and Vomiting Polyethylene Glycol (Polyethylene Glycol 3350 17 Gm Powd.Pack) 17 gm PO DAILY [facility] Last Admin: 05/15/25 10:36 Dose: 17 gm Senna (Sennosides 8.6 Mg Tablet) 17.2 mg PO BEDTIME [facility] Sodium Chloride (0.9 % Sodium Chloride Flush 3 Ml Syringe) 3 ml IVFLUSH QSHIFT [facility] Last Admin: 05/15/25 07:00 Dose: Not Given Home Medications ?Medication ?Instructions ?Recorded ?Confirmed ?Last Taken ?Type albuterol sulfate 90 mcg/actuation 2 puff inhalation Q4H PRN 07/12/25 09/18/25 Unknown History aerosol inhaler Shortness Of Breath Or Wheezing bupropion HCl 150 mg tablet,12 hr 150 mg PO DAILY 03/08/25 05/15/25 Unknown History sustained-release cholecalciferol (vitamin D3) 50 50 mcg PO DAILY 03/08/25 05/15/25 Unknown History mcg (2,000 unit) capsule (Vitamin D3) empagliflozin 25 mg tablet 25 mg PO DAILY 03/08/25 05/15/25 03/09/25 08:30 History (Jardiance) gabapentin 400 mg capsule 400 mg PO BID 03/08/25 05/15/25 Unknown History losartan 50 mg tablet 50 mg PO BID 03/08/25 05/15/25 Unknown History semaglutide 1 mg/dose (4 mg/3 mL) 1 mg subcut FR 03/08/25 05/15/25 03/07/25 History subcutaneous pen injector (Ozempic) tamsulosin 0.4 mg capsule 0.4 mg PO DAILY 03/08/25 05/15/25 Unknown History aspirin 81 mg tablet 81 mg PO DAILY 05/02/25 05/15/25 Unknown History furosemide 20 mg tablet (Lasix) 20 mg PO DAILY 05/02/25 05/15/25 Unknown History hydralazine 10 mg tablet 10 mg PO TID 05/02/25 05/15/25 Unknown History metformin 500 mg tablet,extended 500 mg PO DAILY 05/02/25 05/15/25 Unknown History release 24 hr amiodarone 200 mg tablet 200 mg PO BID 05/15/25 05/15/25 Unknown History atorvastatin 40 mg tablet 40 mg PO DAILY 05/15/25 05/15/25 Unknown History fenofibrate micronized 130 mg 130 mg PO DAILY 05/15/25 05/15/25 Unknown History capsule potassium chloride 20 mEq 20 meq PO DAILY 05/15/25 05/15/25 Unknown History tablet,extended release(part/cryst) venlafaxine 75 mg capsule,extended 225 mg PO DAILY 05/15/25 05/15/25 Unknown History release 24 hr Physical Exam Vital Signs: Vital Signs: Last Vital Signs Temp 97.3 F 05/15/25 12:00 Pulse 64 05/15/25 12:00 Resp 20 05/15/25 12:00 BP 115/77 05/15/25 12:00 Pulse Ox 98 05/15/25 12:00 O2 Del Method CPAP 05/15/25 12:00 O2 Flow Rate 2 05/15/25 12:00 BMI result Body Mass Index 30.8 Const: General: no acute distress and ill appearing Nutritional Appearance: obese Orientation/consciousness: patient oriented x3 Limitations: physical limitations HEENT: Head: Yes normal to inspection Ears: hearing grossly normal bilaterally Eyes: Sclerae: sclerae normal Pupils: Equal, round and reactive pupils present Neck: Neck: Yes normal visual inspection Chest: Chest palpation & inspection: normal inspection of the chest Resp: Effort & Inspection: normal respiratory effort Auscultation: diminished lung sounds (over both bases) Cardio: Palpation: normal PMI Rate: regular rate Rhythm: regular rhythm Heart sounds: S1 normal heart sound present, S2 normal heart sound present and no murmurs GI: Inspection: Yes distended (due to ascites) and Yes obesity Palpation (GI): Soft to palpation, nontender and No hepatosplenomegaly present Auscultation: normal bowel sounds Rectal Exam - Male: Yes deferred Skin: General skin exam: no rashes or lesions noted Neuro: General: patient oriented x3, gait normal and moves all extremities Cranial nerves: Yes Equal, round and reactive pupils present Psych: Appearance: grossly normal Mental Status: mental status grossly normal Results Labs 05/15/25 04:50 05/17/25 05:42 Labs: Short CBC 05/14/25 05/15/25 Range/Units 18:39 04:50 WBC 6.2 6.4 (4.8-10.8) X10*3/uL Hgb 13.0 L 12.4 L (14.0-18.0) g/dl Hct 39.6 L 37.5 L (42.0-52.0) % Plt Count 254 245 (160-400) X10*3/uL BMP 05/14/25 05/15/25 18:39 04:50 Sodium 135 135 Potassium 4.7 4.9 Chloride 98 101 Carbon Dioxide 25 23 BUN 33 H 33 H Creatinine 2.31 H 2.23 H Calcium 9.3 9.3 Cardiac Enzymes 05/14/25 Range/Units 18:39 Total Creatine Kinase 58 (38-174) U/L Liver Function 09/17/25 09/18/25 Range/Units 18:39 04:50 Total Bilirubin 1.6 H 1.1 H (0.0-1.0) mg/dL AST 45 H 41 H (5-37) U/L ALT 60 H 57 H (0-40) U/L Alkaline Phosphatase 66 67 (39-117) U/L Albumin 3.8 3.6 (3.5-5.0) g/dL Urine 05/14/25 Range/Units 19:33 Urine Color Yellow Urine Appearance Clear Urine pH 6.5 (5.0-9.0) Ur Specific [place] 1.015 (1.005-1.025) Urine Protein Negative (Neg-Trace) mg/dL Urine Glucose (UA) >=1000 H (Negative) mg/dL Assessment and Plan (1) Cirrhosis: Status: Acute (2) Ascites: Status: Acute Plan 75 YM with HFrEF, RBBB, CAD/CT/ PCI (2020, 2022), gallstones, benign brain mass, COPD/asthma, AFIB on amiodorone and eliquis, with HX of multiple Cardioversions, hypertension, hyperlipidemia, depression, history of alcohol abuse (now using intermittently), BPH, NIDDM on GLP-1 with chronic constipation, peripheral neuropathy, allergic rhinitis, visual hallucinations ghosts , recent admission [facility] for shock liver secondary to most likely cardiorenal syndrome vs amiodrone, TEA on CPAP, pulmonary hypertension, Hearing loss. GI consulted for evaluation of cirrhosis complicated by recent onset ascites. Cirrhosis is likely due to METALD (past ETOH abuse, obesity and DM) Ascites is likely a combination of liver and cardiac disease - need to rule out PVT/HCC MELD 3.0 score is 28 - likely higher given elevated INR due Eliquis and elevated Cr due to cardiorenal syndrome (Of note - pt has a normal platelet count and low normal albumin levels indicating ascites is likely of cardiac source if PVT is ruled out) RECOMMENDATIONS: 1. US with doppler to rule out PVT 2. Check AFP - added to am labs 3. Check urine sodium, close I&O monitoring and daily weights as advised by Nephrology 4. Diagnostic paracentesis and check ascitic fluid for cell count and diff, protein, albumin, LDH, amylase 5. Hold off lactulose and rifaximin since pt is alert without signs of HE with normal ammonia levels. 6. Can start low dose Furosemide 20 mg daily in the am with close monitoring of renal function (hold spironolactone due to hyperkalemia) 05/16/25 ABD MRI SHOWED: 1. Mild hepatomegaly. Patent portal veins. No splenomegaly. Moderate amount of ascites. Mesenteric edema. No focal hepatic lesions. 2. Moderate right [id number] left pleural-parenchymal disease with pleural effusions and basilar atelectasis versus infiltrates. 3. Cholelithiasis without evidence of cholecystitis. Procedures Date of Service Date of Service: 05/17/25
[2025-05-15 16:28] LABS: Glucose, Whole Blood 101 mg/dL (60-115)
[2025-05-15 16:55] LABS: Amylase 23 U/L (28-100)
[2025-05-15 20:24] LABS: Glucose, Whole Blood 94 mg/dL (60-115)
[2025-05-16] VITALS: BP 124/82; PULSE 67; RESP 16; TEMP 36.4; O2SAT 95
--- NOTE | 2025-05-16 00:20 | PC.NURSE ---
pt c/o upset stomach, zofran given, will check with pt within 30 min.
[2025-05-16 03:44] VITALS: BP 113/77; PULSE 61; RESP 17; TEMP 36.3; O2SAT 99
[2025-05-16 06:00] VITALS: BMI 31.1
[2025-05-16 06:34] LABS: INTERNATIONAL NORM RATIO 2.2 (0.9-1.1); Prothrombin Time 25.6 SEC (10.9-12.4)
[2025-05-16 06:45] LABS: Alanine Aminotransferase 60 U/L (0-40); Albumin Level 3.8 g/dL (3.5-5.0); Alkaline Phosphatase 73 U/L (39-117); Anion Gap 15 (12-20); Aspartate Amino Transferase 57 U/L (5-37); Blood Urea Nitrogen 29 mg/dL (9-16); Calcium 9.2 mg/dL (8.4-10.2); Carbon Dioxide 24 mmol/L (22-29); Chloride 100 mmol/L (96-108); Creatinine Clr Calc Pharmacy 43.1; Estimated Glomerular Filt Rate 35; Potassium 4.7 mmol/L (3.3-5.1); Sodium 134 mmol/L (135-145); Total Protein 5.7 g/dL (6.5-8.0)
[2025-05-16 07:53] LABS: Glucose, Whole Blood 65 mg/dL (60-115)
[2025-05-16 07:55] VITALS: BP 131/84; PULSE 61; RESP 20; TEMP 36.2; O2SAT 95
--- NOTE | 2025-05-16 08:24 | P.PNNP_ITS ---
Subjective Subjective Date of Service: 05/16/25 Interval history: Patient here with dyspnea, new cirrhosis/ascites. Following for LY. creatinine improved this a.m. to 1.87 from 2.23 yesterday. Patient eating and drinking better. Urine sodium <20. Patient reports he is doing ok at bedside. Breathing is comfortable right now. denies pain. denies urinary symptoms. Denies new complaints/concerns. Physical Exam 2 Vital Signs: Vital Signs: Last Vital Signs Temp 97.1 F 05/16/25 07:55 Pulse 61 05/16/25 07:55 Resp 20 05/16/25 07:55 BP 131/84 05/16/25 07:55 Pulse Ox 20 L 05/16/25 07:55 O2 Del Method CPAP 05/16/25 07:55 O2 Flow Rate 2 05/16/25 07:55 BMI result Body Mass Index 31.1 Const: General: no acute distress, alert and awake Resp: Effort & Inspection: normal respiratory effort and able to speak in complete sentences Auscultation: crackles Cardio: Rate: regular rate Rhythm: regular rhythm Heart sounds: S1 normal heart sound present and S2 normal heart sound present GI: Inspection: Yes distended Palpation (GI): nontender : General: Yes no CVA tenderness Back/Spine/Pelvis: Back: no CVA tenderness Skin: Rashes: no rashes Extrem: General: No edema Objective Data Labs 05/15/25 04:50 05/16/25 05:52 Labs: Laboratory Results - last 24 hr 05/15/25 05/15/25 05/15/25 04:50 11:29 15:59 PT INR Sodium Potassium Chloride Carbon Dioxide Anion Gap BUN Creatinine Estim Creat Clear Calc Estimated GFR POC Glucose 118 H Random Glucose Calcium Total Bilirubin AST ALT Alkaline Phosphatase Total Creatine Kinase Total Protein Albumin Amylase 23 L Ur Random Sodium < 20.0 Urine Creatinine 172.69 05/15/25 05/15/25 05/16/25 16:23 20:19 05:52 PT 25.6 H D INR 2.2 H Sodium 134 L Potassium 4.7 Chloride 100 Carbon Dioxide 24 Anion Gap 15 BUN 29 H Creatinine 1.87 H Estim Creat Clear Calc 43.1 Estimated GFR 35 POC Glucose 101 94 Random Glucose 76 Calcium 9.2 Total Bilirubin 1.1 H AST 57 H ALT 60 H Alkaline Phosphatase 73 Total Creatine Kinase 54 Total Protein 5.7 L Albumin 3.8 Amylase Ur Random Sodium Urine Creatinine 05/16/25 07:49 PT INR Sodium Potassium Chloride Carbon Dioxide Anion Gap BUN Creatinine Estim Creat Clear Calc Estimated GFR POC Glucose 65 Random Glucose Calcium Total Bilirubin AST ALT Alkaline Phosphatase Total Creatine Kinase Total Protein Albumin Amylase Ur Random Sodium Urine Creatinine Microbiology Microbiology Results: Microbiology 05/15/25 02:42 Blood - Venous Blood Culture - Preliminary No growth after 24 hours. 05/15/25 02:42 Blood - Venous Blood Culture - Preliminary No growth after 24 hours. Procedures Date of Service Date of Service: 05/16/25 Assessment & Plan Assessment and plan (1) LY (acute kidney injury): Status: Acute Plan LY likely hepatorenal sydnrome given low urine sodium, cirrhosis and symptoms of dyspnea upon standing. may also have component of ATN from intravascular volume depletion/poor PO intake in setting of losartan and jardiance use improving UA is bland CT without evidence of hydronephrosis or stones urine sodium <20. recommend starting on spironolactone 25mg PO daily, may increase to 50mg PO as tolerated may consider starting lasix 20mg PO daily as well recommend continuing to hold losartan and jardiance recommend daily renal function and electrolyte studies recommend close I&O monitoring, daily weights recommend avoiding nephrotoxins continue supportive care Discussed with Dr Pacheco Time Spent With Patient Time: Total time managing care of this patient today ____ minutes. Progress Note: Quality Stroke Does the patient have a stroke diagnosis?: No Reason for No Anti-thrombotic by Day Two: Contraindicated
[2025-05-16] MEDS: 0.9 % Sodium Chloride Flush 3 ML SYRINGE IVFLUSH ×2 (08:54→22:27)
[2025-05-16 11:13] LABS: Glucose, Whole Blood 117 mg/dL (60-115)
--- NOTE | 2025-05-16 11:32 | MHC.CM.PN ---
Per MD rounds patient is not medically cleared to discharge today. Per MD plan is MRCP vs US to assess for Portal vein Thrombus. DP Home with family support + transport.
[2025-05-16 11:44] VITALS: BP 121/87; PULSE 66; RESP 20; TEMP 36.4; O2SAT 99
[2025-05-16 16:00] VITALS: BP 118/79; PULSE 58; RESP 18; TEMP 36.5; O2SAT 98
[2025-05-16] MEDS: Lidocaine HCl 1 % MPF 5 ML VIAL SUBCUT (16:12)
[2025-05-16 16:34] LABS: Glucose, Whole Blood 101 mg/dL (60-115)
[2025-05-16 16:52] LABS: MN% 92.2 %; PMN% 7.8 %; WBC Peritoneal Fluid 0.455 X10*3/uL
--- NOTE | 2025-05-16 18:26 | HO.PM.IMPN ---
Subjective Subjective Date of Service: 05/16/25 Interval History: Extensive discussion by bedside today with the patient and family members. We discussed patient's possible pathophysiology, complaints, symptom management. No new complaints or otherwise Review of Systems Review of Systems: Yes all other systems are reviewed and are negative Physical Exam Exam: Exam: General: A&O x3, oriented to time place person and situation, comfortable, no pain Cardiac: S1, S2 auscultated with no S3/4, no MRG. Well perfused. Elevated JVP to the angle of the mandible. Heart rate regularly regular. Respiratory: Decreased inspiratory and expiratory breath sounds bilaterally particularly at the bases. Mild crepitations auscultated at the bases bilaterally. The patient is in notably more short of breath when sitting upright - Platypnoea. No cyanosis or respiratory distress otherwise. GI/ : No abdominal pain on palpation, no masses or distentions. MSK: Normal ambulation without pain at bony prominences or musculature Neurological: Normal neurological examination on overview, without obvious CN II-XII abnormalities. Vital Signs: Vital Signs: Last Vital Signs Temp 97.7 F 05/16/25 16:00 Pulse 58 05/16/25 16:00 Resp 18 05/16/25 16:00 BP 118/79 05/16/25 16:00 Pulse Ox 98 05/16/25 16:00 O2 Del Method Room Air 05/16/25 16:00 O2 Flow Rate 2 05/16/25 07:55 BMI result Body Mass Index 31.1 Objective Data Active Medications Acetaminophen (Acetaminophen 325 Mg Tablet) 650 mg PO Q6H PRN PRN Reason: Pain, Mild 1-3,fever,headache Last Admin: 05/16/25 04:39 Dose: 650 mg Documented By: AZIZA Albuterol Sulfate (Albuterol Sulfate 90 Mcg 8 Gm Inhaler) 2 puff INHALE Q4H PRN PRN Reason: Shortness Of Breath Or Wheezing Albuterol/Ipratropium (Albuterol/Iprat 2.5/0.5mg 3 Ml Ampul.Neb) 3 ml INHALE Q4H PRN PRN Reason: Shortness of Breath/Wheezing Last Admin: 05/15/25 06:01 Dose: 3 ml Documented By: STEPHAN Amiodarone HCl (Amiodarone Hcl 200 Mg Tablet) 200 mg PO BID [facility] Atorvastatin Calcium (Atorvastatin Calcium 40 Mg Tablet) 40 mg PO DAILY [facility] Calcium Carbonate (Calcium Carbonate 750 Mg Tab.Chew) 750 mg PO Q4H PRN PRN Reason: Heartburn Ceftriaxone Sodium (Ceftriaxone Sodium 1 Gm Vial) 1 gm IVPUSH 2200 [facility] Last Admin: 05/15/25 23:27 Dose: 1 gm Documented By: AZIZA Dextrose (Dextrose 50 % 25 Gm/50 Ml Syringe) 25 gm IVPUSH Q15M PRN; Protocol PRN Reason: per Hypoglycemia Standing Ord. Gabapentin (Gabapentin 400 Mg Capsule) 400 mg PO BID [facility] Glucose (Glucose Gel 15 Gm Gel..Gram.) 15 gm PO Q15M PRN; Protocol PRN Reason: per Hypoglycemia Standing Ord. Azithromycin 500 mg/ Sodium (Chloride) 250 mls @ 125 mls/hr IV 2199 [facility] Last Infusion: 05/16/25 01:38 Dose: Infused Documented By: AZIZA Insulin Human Lispro (Insulin Lispro 100 Unit/Ml 3 Ml Vial) 0 unit SUBCUT QIDACHS [facility]; Protocol Last Admin: 05/16/25 17:36 Dose: Not Given Documented By: EDGAR Non-Admin Reason: No Insulin Coverage Magnesium Hydroxide (Milk Of Magnesia 30 Ml Oral.Susp) 30 ml PO DAILY PRN PRN Reason: Constipation Melatonin (Melatonin 3 Mg Tablet) 6 mg PO BEDTIME PRN PRN Reason: Insomnia Non-Formulary Medication (Fenofibrate Micronized) 130 mg PO DAILY [facility] Non-Formulary Medication (Bupropion Hcl) 150 mg PO DAILY [facility] Ondansetron HCl (Ondansetron Hcl 4 Mg/2 Ml Vial) 4 mg IVPUSH Q8H PRN PRN Reason: Nausea and Vomiting Last Admin: 05/16/25 00:09 Dose: 4 mg Documented By: AZIZA Polyethylene Glycol (Polyethylene Glycol 3350 17 Gm Powd.Pack) 17 gm PO DAILY [facility] Last Admin: 05/16/25 08:53 Dose: Not Given Documented By: EDGAR Non-Admin Reason: Patient Refused Comments: patient report bowel movement this morning Senna (Sennosides 8.6 Mg Tablet) 17.2 mg PO BEDTIME [facility] Last Admin: 05/15/25 21:01 Dose: Not Given Documented By: AZIZA Non-Admin Reason: Patient Refused Sodium Chloride (0.9 % Sodium Chloride Flush 3 Ml Syringe) 3 ml IVFLUSH QSHIFT [facility] Last Admin: 05/16/25 17:37 Dose: Not Given Documented By: EDGAR Non-Admin Reason: Previously Administered Tamsulosin HCl (Tamsulosin Hcl 0.4 Mg Capsule) 0.4 mg PO DAILY [facility] Labs 05/15/25 04:50 05/16/25 05:52 Labs: Laboratory Results - last 24 hr 05/15/25 05/16/25 05/16/25 20:19 05:52 07:49 PT 25.6 H D INR 2.2 H Anion Gap 15 Estim Creat Clear Calc 43.1 Estimated GFR 35 POC Glucose 94 65 Random Glucose 76 Calcium 9.2 Total Bilirubin 1.1 H AST 57 H ALT 60 H Alkaline Phosphatase 73 Total Creatine Kinase 54 Total Protein 5.7 L Albumin 3.8 05/16/25 05/16/25 11:08 16:31 PT INR Anion Gap Estim Creat Clear Calc Estimated GFR POC Glucose 117 H 101 Random Glucose Calcium Total Bilirubin AST ALT Alkaline Phosphatase Total Creatine Kinase Total Protein Albumin Microbiology Microbiology Results: Microbiology 05/15/25 02:42 Blood Culture - Preliminary Blood - Venous No growth after 24 hours. 05/15/25 02:42 Blood Culture - Preliminary Blood - Venous No growth after 24 hours. 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 Cirrhosis Abdominal ascites moderate volume Elevated INR Recent history of shock liver Patient's LFTs are elevated, with elevated T bili, however were much higher in [place] as per collateral from family members We will request documents to be sent from admission in [place] for further clarification of investigations, workup and impressions. Elevated INR gives impression of coagulopathy in the setting of patient's cirrhosis. Etiology of patient's cirrhosis could be 2/2 multifactorial etiology-however given clinical picture, may be consistent with congestive hepatopathy 2/2 right-sided heart failure with tricuspid regurgitation PLAN - GI consultation - diagnostic paracentesis ordered - consider furosemide and spironolactone (pending GI recommendations - as current impression is patient is clinically dry) - INR daily - consider vitamin K to reverse elevated INR - Check ammonia - consider lactulose or rifaximin - HOLD ANTICOAGULATION AT THIS TIME - strongly consider MRCP vs portal duplex ultrasonography to rule out PVT YL Suspected cardiorenal syndrome based on outpatient impression Possible hepatorenal syndrome in the setting of patient's cirrhosis and ascites. Urinalysis ordered Ultrasound bilateral renal Ordered Nephrology following-recommendations greatly appreciated UA and urine studies requested Avoid hypotension and nephrotoxic medications Hold losartan and metformin Biventricular CHF reduced ejection fraction Ischemic cardiomyopathy - [place] s/p PCI x2 (, ) Pulmonary HTN Tricuspid regurgitation Mitral regurgitation Atrial fibrillation - s/p multiple cardioversions Patient is endorsing significant dyspnea at rest and on exertion. No evidence of ischemia or chest pain This could be 2/2 multifactorial etiologies including pulmonary HTN, RV failure, and portal HTN in the setting of new cirrhosis diagnosis. Further considerations for pulmonary embolism should be raised. Pt has extensive cardiac HX, [place] [facility] [place] [facility] [place] Antihypertensives on hold as patient has had borderline blood pressures with maps greater than 60 PLAN - echocardiography - intake/output - daily weights - cardiac diet - continue amiodarone - beta-kim on hold - Eliquis on hold given elevated INR - Aspirin held due to elevated INR - Continue statin Hyperkalemia - progressively improving Initially 5.7 outpatient labs, without intervention repeat testing 4.7 Continue telemetry Noted LY secondary to possible cardiorenal syndrome Continue to trend potassium Pneumonia right lower lobe, new consolidation Ceftriaxone and azithromycin initiated empirically No leukocytosis, fever or productive cough, no evidence of sepsis or hypoxia Will screen patient for COVID and flu No evidence of dysphagia or possible aspiration NIDDM/ diabetic neuropathy - ISS - Metformin held - Diabetic diet - hold Ozempic - hold gabapentin 400 mg b.i.d.; resume with improvement in LY QUALITY METRICS - VTE: INR supratherapeutic-continue to monitor - resume apixaban once INR below 2 - CODE STATUS: Full code - DIET: Cardiac Total time managing care of this patient today: 60 minutes. Quality Stroke Does the patient have a stroke diagnosis?: No Reason for No Anti-thrombotic by Day Two: Contraindicated VTE Prior VTE?: No VTE Risk Level:: Medical - moderate - high VTE Device Contraindication: N/A - Device Ordered VTE Drug Contraindication: Treatment Not Indicated
[2025-05-16 18:45] LABS: Neutrophils Peritoneal Fluid 11 %
[2025-05-16 18:46] LABS: BF Shift QC OK YES; Lymphocyte Peritoneal Fl 44 %; Monocytes Peritoneal Fl 21 %; Other Peritioneal Fl 25 %
[2025-05-16 19:42] VITALS: BP 146/94; PULSE 60; RESP 17; TEMP 36.3; O2SAT 99
--- NOTE | 2025-05-16 21:13 | PC.NURSE ---
patient family member brought in patient's pending home medication (Fenofibrate Micronized 130mg PO and Bupropion Hci 150mg PO) called pharmacy around 16:50 to notify the medications are here and need to be verified. This RN placed the medications in the patient specific bin.
[2025-05-16 21:15] LABS: Glucose, Whole Blood 92 mg/dL (60-115)
[2025-05-17] VITALS (7 sets, daily range): BP systolic 115–147; BP diastolic 41–94; PULSE 60–81; RESP 17–19; TEMP 36.1–36.6; O2SAT 94–98; BMI 30.7
[2025-05-17 06:56] LABS: INTERNATIONAL NORM RATIO 1.8 (0.9-1.1); Prothrombin Time 20.5 SEC (10.9-12.4)
[2025-05-17 07:07] LABS: Alanine Aminotransferase 43 U/L (0-40); Albumin Level 3.5 g/dL (3.5-5.0); Alkaline Phosphatase 64 U/L (39-117); Anion Gap 11 (12-20); Aspartate Amino Transferase 39 U/L (5-37); Blood Urea Nitrogen 23 mg/dL (9-16); Calcium 9.2 mg/dL (8.4-10.2); Carbon Dioxide 27 mmol/L (22-29); Chloride 105 mmol/L (96-108); Creatinine Clr Calc Pharmacy 58.4; Estimated Glomerular Filt Rate 51; Potassium 4.3 mmol/L (3.3-5.1); Sodium 139 mmol/L (135-145); Total Protein 5.3 g/dL (6.5-8.0)
[2025-05-17 07:28] LABS: Glucose, Whole Blood 64 mg/dL (60-115)
[2025-05-17 07:58] LABS: Glucose, Whole Blood 95 mg/dL (60-115)
[2025-05-17] MEDS: 0.9 % Sodium Chloride Flush 3 ML SYRINGE IVFLUSH ×2 (09:58→21:35)
[2025-05-17 11:38] LABS: Glucose, Whole Blood 104 mg/dL (60-115)
[2025-05-17] MEDS: Lactated Ringers 500 ML 100 ML IVCONT (12:25)
--- NOTE | 2025-05-17 13:56 | HO.PM.IMPN ---
Subjective Subjective Date of Service: 05/17/25 Interval History: No new complaints today. The patient feels that his dyspnea has been improving gradually since admission. He denies any abdominal distention or pain. INR has been improving, currently 1.8 decreased from 4 on admission Renal function has also improved Liver MRI conducted yesterday Also had successful diagnostic and therapeutic ultrasound-guided paracentesis 05/16 875 mL of clear rene fluid was drained from the right lower quadrant. Review of Systems Review of Systems: Yes all other systems are reviewed and are negative Physical Exam Exam: Exam: General: A&O x3, oriented to time place person and situation, comfortable, no pain Cardiac: S1, S2 auscultated with no S3/4, no MRG. Well perfused. Elevated JVP to the angle of the mandible. Heart rate regularly regular. Respiratory: Decreased inspiratory and expiratory breath sounds bilaterally particularly at the bases. Mild crepitations auscultated at the bases bilaterally. The patient is in notably more short of breath when sitting upright - Platypnoea. No cyanosis or respiratory distress otherwise. GI/ : No abdominal pain on palpation, no masses or distentions. MSK: Normal ambulation without pain at bony prominences or musculature Neurological: Normal neurological examination on overview, without obvious CN II-XII abnormalities. Vital Signs: Vital Signs: Last Vital Signs Temp 97.8 F 05/17/25 11:41 Pulse 77 05/17/25 11:41 Resp 18 05/17/25 11:41 BP 115/71 05/17/25 11:41 Pulse Ox 97 05/17/25 11:41 O2 Del Method BiPAP 05/17/25 11:41 O2 Flow Rate 2 05/16/25 07:55 BMI result Body Mass Index 30.7 Objective Data Active Medications Acetaminophen (Acetaminophen 325 Mg Tablet) 650 mg PO Q6H PRN PRN Reason: Pain, Mild 1-3,fever,headache Last Admin: 05/16/25 04:39 Dose: 650 mg Documented By: AZIZA Albuterol Sulfate (Albuterol Sulfate 90 Mcg 8 Gm Inhaler) 2 puff INHALE Q4H PRN PRN Reason: Shortness Of Breath Or Wheezing Albuterol/Ipratropium (Albuterol/Iprat 2.5/0.5mg 3 Ml Ampul.Neb) 3 ml INHALE Q4H PRN PRN Reason: Shortness of Breath/Wheezing Last Admin: 05/15/25 06:01 Dose: 3 ml Documented By: STEPHAN Amiodarone HCl (Amiodarone Hcl 200 Mg Tablet) 200 mg PO BID [facility] Last Admin: 05/17/25 09:58 Dose: 200 mg Documented By: ALESSIO Atorvastatin Calcium (Atorvastatin Calcium 40 Mg Tablet) 40 mg PO DAILY [facility] Last Admin: 05/17/25 09:58 Dose: 40 mg Documented By: ALESSIO Calcium Carbonate (Calcium Carbonate 750 Mg Tab.Chew) 750 mg PO Q4H PRN PRN Reason: Heartburn Dextrose (Dextrose 50 % 25 Gm/50 Ml Syringe) 25 gm IVPUSH Q15M PRN; Protocol PRN Reason: per Hypoglycemia Standing Ord. Doxycycline Monohydrate (Doxycycline Monohydrate 100 Mg Capsule) 100 mg PO BID [facility] Last Admin: 05/17/25 12:21 Dose: 100 mg Documented By: ALESSIO Gabapentin (Gabapentin 400 Mg Capsule) 400 mg PO BID [facility] Last Admin: 05/17/25 09:58 Dose: 400 mg Documented By: ALESSIO Glucose (Glucose Gel 15 Gm Gel..Gram.) 15 gm PO Q15M PRN; Protocol PRN Reason: per Hypoglycemia Standing Ord. Lactated Ringer's (Lr) 500 mls @ 100 mls/hr IVCONT .Q5H [facility] Last Admin: 05/17/25 12:25 Dose: 100 mls/hr Documented By: ALESSIO Insulin Human Lispro (Insulin Lispro 100 Unit/Ml 3 Ml Vial) 0 unit SUBCUT QIDACHS [facility]; Protocol Last Admin: 05/17/25 12:22 Dose: Not Given Documented By: ALESSIO Non-Admin Reason: No Insulin Coverage Magnesium Hydroxide (Milk Of Magnesia 30 Ml Oral.Susp) 30 ml PO DAILY PRN PRN Reason: Constipation Melatonin (Melatonin 3 Mg Tablet) 6 mg PO BEDTIME PRN PRN Reason: Insomnia Non-Formulary Medication (Fenofibrate Micronized) 130 mg PO DAILY [facility] Non-Formulary Medication (Bupropion Hcl) 150 mg PO DAILY [facility] Ondansetron HCl (Ondansetron Hcl 4 Mg/2 Ml Vial) 4 mg IVPUSH Q8H PRN PRN Reason: Nausea and Vomiting Last Admin: 05/16/25 00:09 Dose: 4 mg Documented By: AZIZA Polyethylene Glycol (Polyethylene Glycol 3350 17 Gm Powd.Pack) 17 gm PO DAILY [facility] Last Admin: 05/17/25 09:58 Dose: 17 gm Documented By: ALESSIO Senna (Sennosides 8.6 Mg Tablet) 17.2 mg PO BEDTIME [facility] Last Admin: 05/16/25 22:26 Dose: 17.2 mg Documented By: BEBETO Sodium Chloride (0.9 % Sodium Chloride Flush 3 Ml Syringe) 3 ml IVFLUSH QSHIFT [facility] Last Admin: 05/17/25 09:58 Dose: 3 ml Documented By: ALESSIO Tamsulosin HCl (Tamsulosin Hcl 0.4 Mg Capsule) 0.4 mg PO DAILY [facility] Last Admin: 05/17/25 09:58 Dose: 0.4 mg Documented By: ALESSIO Labs 05/15/25 04:50 05/17/25 05:42 Labs: Laboratory Results - last 24 hr 05/16/25 05/16/25 05/16/25 15:50 16:31 21:11 PT INR Anion Gap Estim Creat Clear Calc Estimated GFR POC Glucose 101 92 Random Glucose Calcium Total Bilirubin AST ALT Alkaline Phosphatase Total Protein Albumin Peritoneal WBC 0.455 Peritoneal RBC 0.030 Periton Neutrophils 11 Periton Lymphocytes 44 Peritoneal Monocytes 21 Peritoneal Other Cells 25 05/17/25 05/17/25 05/17/25 05:42 07:22 07:55 PT 20.5 H INR 1.8 H Anion Gap 11 L Estim Creat Clear Calc 58.4 Estimated GFR 51 POC Glucose 64 95 Random Glucose 69 Calcium 9.2 Total Bilirubin 1.0 AST 39 H ALT 43 H Alkaline Phosphatase 64 Total Protein 5.3 L Albumin 3.5 Peritoneal WBC Peritoneal RBC Periton Neutrophils Periton Lymphocytes Peritoneal Monocytes Peritoneal Other Cells 05/17/25 11:34 PT INR Anion Gap Estim Creat Clear Calc Estimated GFR POC Glucose 104 Random Glucose Calcium Total Bilirubin AST ALT Alkaline Phosphatase Total Protein Albumin Peritoneal WBC Peritoneal RBC Periton Neutrophils Periton Lymphocytes Peritoneal Monocytes Peritoneal Other Cells Microbiology Microbiology Results: Microbiology 05/15/25 02:42 Blood Culture - Preliminary Blood - Venous No growth after 48 hours. 05/15/25 02:42 Blood Culture - Preliminary Blood - Venous No growth after 48 hours. Assessment and Plan (1) Cardiorenal syndrome with renal failure: Status: Acute (2) Acute HFrEF (heart failure with reduced ejection fraction): Status: Acute (3) RVF (right ventricular failure): Status: Acute (4) CAD (coronary artery disease): Status: Acute (5) A-fib: Status: Acute (6) Cirrhosis: Status: Acute (7) Ascites: Status: Acute (8) LY (acute kidney injury): Status: Acute (9) Hepatorenal syndrome: Status: Acute Plan 75-year-old male, with a history of combined diastolic and systolic HFrEF 2/2 ischemic cardiomyopathy (CAD/MS/PCI ), pulmonary HTN, COPD, AFib on amiodarone & apixaban s/p multiple cardioversion, hepatosteatosis, T2 DM, history ETOH abuse, HTN, HLD, TEA CPAP, recent admission in [place] for shock liver suspected 2/2 amiodarone versus AFib RVR with CHF exacerbation, referred to ED with fatigue, dyspnea & unwitnessed fall hyperkalemia 5.7, admitted for further evaluation of new cirrhosis, ascites, dyspnea. Patient likely suffers with hepatic cirrhosis 2/2 congestive hepatopathy in the setting of RV failure and tricuspid regurgitation. Patient likely suffers with episodes of AFib RVR during dehydrated states leading to pulmonary edema, in the setting of HFrEF 40-45 % & mitral regurgitation. Cirrhosis - alcoholic steatohepatitis - VERONICA - congestive hepatopathy 2/2 RV failure (& TR Regurg) Abdominal ascites moderate volume Mesenteric ascites Elevated INR (improving 4 --> 1.8) Recent history of shock liver Patient's LFTs are elevated, with elevated T bili, however were much higher in [place] as per collateral from family members We will request documents to be sent from admission in [place] for further clarification of investigations, workup and impressions. Elevated INR gives impression of coagulopathy in the setting of patient's cirrhosis. Etiology of patient's cirrhosis could be 2/2 multifactorial etiology-however given clinical picture, may be consistent with congestive hepatopathy 2/2 right-sided heart failure with tricuspid regurgitation Hepatic MRI conducted, revealing mild hepatomegaly, with patent portal veins, without splenomegaly. Moderate amount of ascites was identified, with mesenteric edema. No focal hepatic lesions were identified. The patient was found to have cholelithiasis without evidence of cholecystitis or choledocholithiasis. This is a reassuring finding, suggesting that the patient has cirrhosis and shock liver may have been 2/2 acute CHF exacerbation (likely 2/2 RV failure with superimposed tricuspid regurgitation and subsequent congestive hepatopathy). Also urine sodium is less than 20. PLAN - GI consultation placed-recommendations greatly appreciated - diagnostic & therapeutic paracentesis 05/16 (1L removed) - consider low-dose furosemide - low-dose spironolactone 12.5 mg b.i.d. to be initiated tomorrow - INR daily - HOLD ANTICOAGULATION AT THIS TIME - consider octreotide for portal HTN Prerenal LY Likely hepatorenal syndrome in the setting of patient's cirrhosis and ascites; along with increased intra-abdominal pressure Ultrasound bilateral renal unremarkable Nephrology following-recommendations greatly appreciated UA and urine studies requested Avoid hypotension and nephrotoxic medications Hold losartan and metformin IVF 500 cc administered yesterday, repeating today Urinary sodium less than 20 Ischemic cardiomyopathy - [place] s/p PCI x2 (, ) Biventricular CHF reduced ejection fraction - RV failure with tricuspid regurgitation - LVEF 40-45% Tricuspid regurgitation Mitral regurgitation Atrial fibrillation - s/p multiple cardioversions Patient is endorsing significant dyspnea at rest and on exertion. No evidence of ischemia or chest pain This could be 2/2 multifactorial etiologies including pulmonary HTN, RV failure, and portal HTN in the setting of new cirrhosis diagnosis. Further considerations for pulmonary embolism should be raised. Pt has extensive cardiac HX, recent transfer to [facility] from [facility] [place] for chest pain 05/06 Antihypertensives on hold as patient has had borderline blood pressures with maps greater than 60 PLAN - echocardiography - intake/output - daily weights - cardiac diet - continue amiodarone - beta-kim on hold - Eliquis on hold given elevated INR - restart when INR below 2 (currently 1.8-start tomorrow) - Aspirin held due to elevated INR - Continue statin Pneumonia right lower lobe, new consolidation Ceftriaxone and azithromycin initiated empirically No leukocytosis, fever or productive cough, no evidence of sepsis or hypoxia Will screen patient for COVID and flu No evidence of dysphagia or possible aspiration Hyperkalemia -resolved Initially 5.7 outpatient labs, without intervention repeat testing 4.7 NIDDM/ diabetic neuropathy - ISS - Metformin held - Diabetic diet - hold Ozempic - hold gabapentin 400 mg b.i.d.; resume with improvement in LY QUALITY METRICS - VTE: INR supratherapeutic-continue to monitor - resume apixaban once INR below 2 (05/18/2025) - CODE STATUS: Full code - DIET: Cardiac Total time managing care of this patient today: 60 minutes. Quality Stroke Does the patient have a stroke diagnosis?: No Reason for No Anti-thrombotic by Day Two: Contraindicated VTE Prior VTE?: No VTE Risk Level:: Medical - moderate - high VTE Device Contraindication: N/A - Device Ordered VTE Drug Contraindication: Treatment Not Indicated
[2025-05-17 16:30] LABS: Glucose, Whole Blood 109 mg/dL (60-115)
[2025-05-17 21:06] LABS: Glucose, Whole Blood 94 mg/dL (60-115)
[2025-05-18] VITALS (8 sets, daily range): BP systolic 141–182; BP diastolic 80–112; PULSE 69–107; RESP 12–18; TEMP 36.2–36.9; O2SAT 93–97; BMI 30.4
--- NOTE | 2025-05-18 07:13 | HO.PM.IMPN ---
Subjective Subjective Date of Service: 05/18/25 Interval History: INR - 1.6 Answered son's questions at bedside via phone Paracentesis site appears to be leaking - bandaged with good effect. Physical Exam Exam: Exam: General: AOx3, no acute distress Resp: CTA bilaterally CVS: S1, S2, RRR GI: +BS, NT, distended, leaking from the site, minimally, s/p control with bandage. Skin: Warm, dry Extremities: No edema Psych: Appropriate affect Vital Signs: Vital Signs: Last Vital Signs Temp 97.9 F 05/18/25 03:47 Pulse 69 05/18/25 03:47 Resp 18 05/18/25 03:47 BP 162/93 H 05/18/25 03:47 Pulse Ox 97 05/18/25 03:47 O2 Del Method BiPAP 05/18/25 03:47 O2 Flow Rate 2 05/16/25 07:55 BMI result Body Mass Index 30.4 Objective Data Active Medications Acetaminophen (Acetaminophen 325 Mg Tablet) 650 mg PO Q6H PRN PRN Reason: Pain, Mild 1-3,fever,headache Last Admin: 05/16/25 04:39 Dose: 650 mg Documented By: AZIZA Albuterol Sulfate (Albuterol Sulfate 90 Mcg 8 Gm Inhaler) 2 puff INHALE Q4H PRN PRN Reason: Shortness Of Breath Or Wheezing Albuterol/Ipratropium (Albuterol/Iprat 2.5/0.5mg 3 Ml Ampul.Neb) 3 ml INHALE Q4H PRN PRN Reason: Shortness of Breath/Wheezing Last Admin: 05/15/25 06:01 Dose: 3 ml Documented By: STEPHAN Amiodarone HCl (Amiodarone Hcl 200 Mg Tablet) 200 mg PO BID REPLACED BY [facility] Last Admin: 05/17/25 21:31 Dose: 200 mg Documented By: BEBETO Atorvastatin Calcium (Atorvastatin Calcium 40 Mg Tablet) 40 mg PO DAILY REPLACED BY [facility] Last Admin: 05/17/25 09:58 Dose: 40 mg Documented By: ALESSIO Calcium Carbonate (Calcium Carbonate 750 Mg Tab.Chew) 750 mg PO Q4H PRN PRN Reason: Heartburn Dextrose (Dextrose 50 % 25 Gm/50 Ml Syringe) 25 gm IVPUSH Q15M PRN; Protocol PRN Reason: per Hypoglycemia Standing Ord. Doxycycline Monohydrate (Doxycycline Monohydrate 100 Mg Capsule) 100 mg PO BID REPLACED BY [facility] Last Admin: 05/17/25 21:31 Dose: 100 mg Documented By: BEBETO Gabapentin (Gabapentin 400 Mg Capsule) 400 mg PO BID REPLACED BY [facility] Last Admin: 05/17/25 21:31 Dose: 400 mg Documented By: BEBETO Glucose (Glucose Gel 15 Gm Gel..Gram.) 15 gm PO Q15M PRN; Protocol PRN Reason: per Hypoglycemia Standing Ord. Insulin Human Lispro (Insulin Lispro 100 Unit/Ml 3 Ml Vial) 0 unit SUBCUT QIDACHS REPLACED BY [facility]; Protocol Last Admin: 05/17/25 21:31 Dose: Not Given Documented By: BEBETO Non-Admin Reason: No Insulin Coverage Magnesium Hydroxide (Milk Of Magnesia 30 Ml Oral.Susp) 30 ml PO DAILY PRN PRN Reason: Constipation Melatonin (Melatonin 3 Mg Tablet) 6 mg PO BEDTIME PRN PRN Reason: Insomnia Ondansetron HCl (Ondansetron Hcl 4 Mg/2 Ml Vial) 4 mg IVPUSH Q8H PRN PRN Reason: Nausea and Vomiting Last Admin: 05/16/25 00:09 Dose: 4 mg Documented By: AZIZA Polyethylene Glycol (Polyethylene Glycol 3350 17 Gm Powd.Pack) 17 gm PO DAILY REPLACED BY [facility] Last Admin: 05/17/25 09:58 Dose: 17 gm Documented By: ALESSIO Senna (Sennosides 8.6 Mg Tablet) 17.2 mg PO BEDTIME REPLACED BY [facility] Last Admin: 05/17/25 21:31 Dose: 17.2 mg Documented By: BEBETO Sodium Chloride (0.9 % Sodium Chloride Flush 3 Ml Syringe) 3 ml IVFLUSH QSHIFT REPLACED BY [facility] Last Admin: 05/17/25 21:35 Dose: 3 ml Documented By: BEBETO Tamsulosin HCl (Tamsulosin Hcl 0.4 Mg Capsule) 0.4 mg PO DAILY REPLACED BY [facility] Last Admin: 05/17/25 09:58 Dose: 0.4 mg Documented By: ALESSIO Labs 05/15/25 04:50 05/18/25 06:43 Labs: Laboratory Results - last 24 hr 05/17/25 05/17/25 05/17/25 07:22 07:55 11:34 POC Glucose 64 95 104 05/17/25 05/17/25 16:27 21:03 POC Glucose 109 94 Microbiology Microbiology Results: Microbiology 05/15/25 02:42 Blood Culture - Preliminary Blood - Venous No growth after 48 hours. 05/15/25 02:42 Blood Culture - Preliminary Blood - Venous No growth after 48 hours. 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 cardiomyopathy (CAD/IL/PCI ), pulmonary HTN, COPD, AFib on amiodarone & apixaban s/p multiple cardioversion, hepatosteatosis, T2 DM, history ETOH abuse, HTN, HLD, TEA CPAP, recent admission in [place] for shock liver suspected 2/2 amiodarone versus AFib RVR with CHF exacerbation, referred to ED with fatigue, dyspnea & unwitnessed fall hyperkalemia 5.7, admitted for further evaluation of new cirrhosis, ascites, dyspnea likely 2/2 CRS & congestive hepatopathy Cirrhosis - alcoholic steatohepatitis - VERONICA - congestive hepatopathy 2/2 RV failure (& TR Regurg) Synthetic liver dysfunction Abdominal ascites moderate volume Mesenteric ascites Elevated INR (improving 4 --> 1.8) Recent history of shock liver Cholilithiasis without Imaging and workup thus far suggestive of HRS in the setting of [facility] mx with spironolactone and furosemide - initated this admission with good effect. s/p RLQ Paracentesis (05/16/25) - transudative appearing Paroxysmal Afib with RVR s/p prior cardioversions - 2/2 dec intravascular volume - resume home Eliquis since INR at goal (synthetic liver dysfunction) HFrEF 40-45% - GDMT - ROMA/ARB limited given LY - resume when recovery noted , MRB initiated, BB resumed given HDS LY -prenal +intrrenal - trial of fluids + prn albumin to support iv volume HyperK - 2/2 LY - resolved with meds CAD - resume aspirin given optimization of medication Pna - responding to po abx - doxycycline DM2 ISS while hosp Pt needs continued hosp 1-2 more days for [id number] liver failure, presenting with worsening synthetic dysfunction (indicated by an INR >=is greater than or equal to>= 1.5). They are being managed for complications such as hepatic encephalopathy and ascites. The care plan focuses on aggressive medical management, including diuretics and lactulose, close hemodynamic monitoring, and serial labs. This note is constructed using voice recognition software. While every effort has been made to ensure accuracy, wet end supervisor errors may have been included. Total time managing care of this patient today: 35 minutes. Quality Stroke Does the patient have a stroke diagnosis?: No Reason for No Anti-thrombotic by Day Two: Contraindicated VTE Prior VTE?: No VTE Risk Level:: Medical - moderate - high VTE Device Contraindication: N/A - Device Ordered VTE Drug Contraindication: Treatment Not Indicated
[2025-05-18 07:31] LABS: Glucose, Whole Blood 80 mg/dL (60-115)
[2025-05-18 08:00] LABS: INTERNATIONAL NORM RATIO 1.6 (0.9-1.1); Prothrombin Time 18.3 SEC (10.9-12.4)
[2025-05-18 08:12] LABS: Alanine Aminotransferase 53 U/L (0-40); Albumin Level 3.4 g/dL (3.5-5.0); Alkaline Phosphatase 65 U/L (39-117); Anion Gap 11 (12-20); Aspartate Amino Transferase 42 U/L (5-37); Blood Urea Nitrogen 18 mg/dL (9-16); Calcium 9.5 mg/dL (8.4-10.2); Carbon Dioxide 31 mmol/L (22-29); Chloride 106 mmol/L (96-108); Creatinine Clr Calc Pharmacy 60.0; Estimated Glomerular Filt Rate 52; Potassium 4.9 mmol/L (3.3-5.1); Sodium 143 mmol/L (135-145); Total Protein 5.3 g/dL (6.5-8.0)
[2025-05-18] MEDS: 0.9 % Sodium Chloride Flush 3 ML SYRINGE IVFLUSH ×2 (09:36→17:42)
[2025-05-18 11:42] LABS: Glucose, Whole Blood 106 mg/dL (60-115)
[2025-05-18 16:28] LABS: Glucose, Whole Blood 108 mg/dL (60-115)
[2025-05-18 21:19] LABS: Glucose, Whole Blood 136 mg/dL (60-115)
[2025-05-19 04:00] VITALS: BP 155/99; PULSE 100; RESP 16; TEMP 36.7; O2SAT 94
[2025-05-19 06:00] VITALS: BMI 29.7
[2025-05-19 07:14] LABS: Albumin Peritoneal Fluid 2.1
--- NOTE | 2025-05-19 07:24 | HO.PM.IMPN ---
Subjective Subjective Date of Service: 05/19/25 Physical Exam Vital Signs: Vital Signs: Last Vital Signs Temp 98.0 F 05/19/25 04:00 Pulse 100 05/19/25 04:00 Resp 16 05/19/25 04:00 BP 155/99 H 05/19/25 04:00 Pulse Ox 94 05/19/25 04:00 O2 Del Method Room Air 05/19/25 04:00 O2 Flow Rate 2 05/16/25 07:55 BMI result Body Mass Index 29.7 Objective Data Active Medications Acetaminophen (Acetaminophen 325 Mg Tablet) 650 mg PO Q6H PRN PRN Reason: Pain, Mild 1-3,fever,headache Last Admin: 05/18/25 17:42 Dose: 650 mg Documented By: ALESSIO Albuterol Sulfate (Albuterol Sulfate 90 Mcg 8 Gm Inhaler) 2 puff INHALE Q4H PRN PRN Reason: Shortness Of Breath Or Wheezing Albuterol/Ipratropium (Albuterol/Iprat 2.5/0.5mg 3 Ml Ampul.Neb) 3 ml INHALE Q4H PRN PRN Reason: Shortness of Breath/Wheezing Last Admin: 05/15/25 06:01 Dose: 3 ml Documented By: STEPHAN Amiodarone HCl (Amiodarone Hcl 200 Mg Tablet) 200 mg PO BID [facility] Last Admin: 05/18/25 21:00 Dose: 200 mg Documented By: AZIZA Apixaban (Apixaban 5 Mg Tablet) 5 mg PO BID [facility] Last Admin: 05/18/25 21:00 Dose: 5 mg Documented By: AZIZA Atorvastatin Calcium (Atorvastatin Calcium 40 Mg Tablet) 40 mg PO DAILY [facility] Last Admin: 05/18/25 09:37 Dose: 40 mg Documented By: ALESSIO Calcium Carbonate (Calcium Carbonate 750 Mg Tab.Chew) 750 mg PO Q4H PRN PRN Reason: Heartburn Dextrose (Dextrose 50 % 25 Gm/50 Ml Syringe) 25 gm IVPUSH Q15M PRN; Protocol PRN Reason: per Hypoglycemia Standing Ord. Doxycycline Monohydrate (Doxycycline Monohydrate 100 Mg Capsule) 100 mg PO BID [facility] Last Admin: 05/18/25 21:00 Dose: 100 mg Documented By: AZIZA Furosemide (Furosemide 20 Mg Tablet) 20 mg PO DAILY [facility]; Protocol Gabapentin (Gabapentin 400 Mg Capsule) 400 mg PO BID [facility] Last Admin: 05/18/25 21:00 Dose: 400 mg Documented By: AZIZA Glucose (Glucose Gel 15 Gm Gel..Gram.) 15 gm PO Q15M PRN; Protocol PRN Reason: per Hypoglycemia Standing Ord. Hydralazine HCl (Hydralazine Hcl 10 Mg Tablet) 10 mg PO TID [facility]; Protocol Last Admin: 05/18/25 21:00 Dose: 10 mg Documented By: AZIZA Insulin Human Lispro (Insulin Lispro 100 Unit/Ml 3 Ml Vial) 0 unit SUBCUT QIDACHS [facility]; Protocol Last Admin: 05/18/25 21:37 Dose: Not Given Documented By: AZIZA Non-Admin Reason: No Insulin Coverage Losartan Potassium (Losartan Potassium 50 Mg Tablet) 50 mg PO BID [facility]; Protocol Last Admin: 05/18/25 21:00 Dose: 50 mg Documented By: AZIZA Magnesium Hydroxide (Milk Of Magnesia 30 Ml Oral.Susp) 30 ml PO DAILY PRN PRN Reason: Constipation Melatonin (Melatonin 3 Mg Tablet) 6 mg PO BEDTIME PRN PRN Reason: Insomnia Metoprolol Succinate (Metoprolol Succinate Er 50 Mg Tab.Er.24h) 50 mg PO DAILY [facility]; Protocol Ondansetron HCl (Ondansetron Hcl 4 Mg/2 Ml Vial) 4 mg IVPUSH Q8H PRN PRN Reason: Nausea and Vomiting Last Admin: 05/16/25 00:09 Dose: 4 mg Documented By: AZIZA Polyethylene Glycol (Polyethylene Glycol 3350 17 Gm Powd.Pack) 17 gm PO DAILY [facility] Last Admin: 05/18/25 09:36 Dose: 17 gm Documented By: ALESSIO Senna (Sennosides 8.6 Mg Tablet) 17.2 mg PO BEDTIME [facility] Last Admin: 05/18/25 21:00 Dose: 17.2 mg Documented By: AZIZA Sodium Chloride (0.9 % Sodium Chloride Flush 3 Ml Syringe) 3 ml IVFLUSH QSHIFT [facility] Last Admin: 05/19/25 01:23 Dose: Not Given Documented By: AZIZA Non-Admin Reason: Previously Administered Tamsulosin HCl (Tamsulosin Hcl 0.4 Mg Capsule) 0.4 mg PO DAILY [facility] Last Admin: 05/18/25 09:37 Dose: 0.4 mg Documented By: ALESSIO Venlafaxine HCl (Venlafaxine Hcl Er 75 Mg Cap.Er.24h) 225 mg PO DAILY [facility] Labs 05/15/25 04:50 05/18/25 06:43 Labs: Laboratory Results - last 24 hr 05/16/25 05/18/25 05/18/25 15:50 06:43 07:27 Hold Purple Top SEE NOTE PT 18.3 H INR 1.6 H Anion Gap 11 L Estim Creat Clear Calc 60.0 Estimated GFR 52 POC Glucose 80 Random Glucose 75 Calcium 9.5 Total Bilirubin 1.1 H AST 42 H ALT 53 H Alkaline Phosphatase 65 Total Protein 5.3 L Albumin 3.4 L Peritoneal Albumin 2.1 Peritoneal LDH 68 05/18/25 05/18/25 05/18/25 11:35 16:22 21:17 Hold Purple Top PT INR Anion Gap Estim Creat Clear Calc Estimated GFR POC Glucose 106 108 136 H Random Glucose Calcium Total Bilirubin AST ALT Alkaline Phosphatase Total Protein Albumin Peritoneal Albumin Peritoneal LDH 05/19/25 06:24 Hold Purple Top SEE NOTE PT INR Anion Gap Estim Creat Clear Calc Estimated GFR POC Glucose Random Glucose Calcium Total Bilirubin AST ALT Alkaline Phosphatase Total Protein Albumin Peritoneal Albumin Peritoneal LDH Quality Stroke Does the patient have a stroke diagnosis?: No Reason for No Anti-thrombotic by Day Two: Contraindicated VTE Prior VTE?: No VTE Risk Level:: Medical - moderate - high VTE Device Contraindication: N/A - Device Ordered VTE Drug Contraindication: Treatment Not Indicated
[2025-05-19 07:40] LABS: INTERNATIONAL NORM RATIO 1.9 (0.9-1.1); Prothrombin Time 21.3 SEC (10.9-12.4)
[2025-05-19 07:45] LABS: Alanine Aminotransferase 41 U/L (0-40); Albumin Level 3.5 g/dL (3.5-5.0); Alkaline Phosphatase 70 U/L (39-117); Anion Gap 10 (12-20); Aspartate Amino Transferase 33 U/L (5-37); Blood Urea Nitrogen 12 mg/dL (9-16); Calcium 9.3 mg/dL (8.4-10.2); Carbon Dioxide 29 mmol/L (22-29); Chloride 107 mmol/L (96-108); Creatinine Clr Calc Pharmacy 75.8; Estimated Glomerular Filt Rate > 60; Potassium 3.9 mmol/L (3.3-5.1); Sodium 142 mmol/L (135-145); Total Protein 5.5 g/dL (6.5-8.0)
[2025-05-19 08:00] VITALS: BP 166/110; PULSE 98; RESP 12; TEMP 36.3; O2SAT 95
[2025-05-19 08:19] LABS: Glucose, Whole Blood 116 mg/dL (60-115)
[2025-05-19] MEDS: Venlafaxine HCl ER 75 MG CAP.ER.24H 225 MG PO (08:21)
[2025-05-19 08:22] VITALS: BP 166/110; PULSE 100
[2025-05-19] MEDS: Metoprolol Succinate ER 50 MG TAB.ER.24H PO (08:22)
[2025-05-19] MEDS: Phytonadione (Vit K1) Oral 10 MG/ML AMPUL 5 MG PO (08:22)
[2025-05-19] MEDS: 0.9 % Sodium Chloride Flush 3 ML SYRINGE IVFLUSH ×2 (08:23→17:00)
--- NOTE | 2025-05-19 08:58 | ECG_ITS ---
Test Reason : question of afib Blood Pressure : */* mmHG Vent. Rate : 100 BPM Atrial Rate : * BPM P-R Int : * ms QRS Dur : 164 ms QT Int : 428 ms P-R-T Axes : * 121 6 degrees QTcB Int : 552 ms Atrial fibrillation Right bundle branch block Left posterior fascicular block Bifascicular block Abnormal ECG When compared with ECG of 15-May-2025 11:42, Atrial fibrillation has replaced Sinus rhythm Vent. rate has increased by 40 bpm Referred By: Georgiana Bhat Electronically Signed By: Jignesh Mcdaniel
[2025-05-19 11:21] LABS: Glucose, Whole Blood 134 mg/dL (60-115)
[2025-05-19 12:00] VITALS: BP 140/89; PULSE 106; RESP 17; TEMP 36.2; O2SAT 93
--- NOTE | 2025-05-19 13:38 | P.PNNP_ITS ---
Subjective Subjective Date of Service: 05/19/25 Interval history: Patient here with dyspnea, new cirrhosis/ascites. Following for LY. creatinine down to 1.04 today. Patient reports he is doing ok at bedside. Breathing is comfortable right now. denies pain. denies urinary symptoms. Denies new complaints/concerns. Physical Exam 2 Vital Signs: Vital Signs: Last Vital Signs Temp 97.1 F 05/19/25 12:00 Pulse 106 H 05/19/25 12:00 Resp 17 05/19/25 12:00 BP 140/89 H 05/19/25 12:00 Pulse Ox 91 L 05/19/25 12:00 O2 Del Method Room Air 05/19/25 12:00 O2 Flow Rate 2 05/16/25 07:55 BMI result Body Mass Index 29.7 Const: General: no acute distress, alert and awake Resp: Effort & Inspection: normal respiratory effort and able to speak in complete sentences Auscultation: crackles Cardio: Rate: regular rate Rhythm: regular rhythm Heart sounds: S1 normal heart sound present and S2 normal heart sound present GI: Inspection: Yes distended Palpation (GI): nontender : General: Yes no CVA tenderness Back/Spine/Pelvis: Back: no CVA tenderness Skin: Rashes: no rashes Extrem: General: Yes edema (trace LE edema) Objective Data Labs 05/15/25 04:50 05/19/25 06:24 Labs: Laboratory Results - last 24 hr 05/16/25 05/18/25 05/18/25 15:50 16:22 21:17 Hold Purple Top PT INR Sodium Potassium Chloride Carbon Dioxide Anion Gap BUN Creatinine Estim Creat Clear Calc Estimated GFR POC Glucose 108 136 H Random Glucose Calcium Total Bilirubin AST ALT Alkaline Phosphatase Total Protein Albumin Peritoneal Albumin 2.1 Peritoneal LDH 68 05/19/25 05/19/25 05/19/25 06:24 08:15 11:09 Hold Purple Top SEE NOTE PT 21.3 H INR 1.9 H Sodium 142 Potassium 3.9 D Chloride 107 Carbon Dioxide 29 Anion Gap 10 L BUN 12 Creatinine 1.04 Estim Creat Clear Calc 75.8 Estimated GFR > 60 POC Glucose 116 H 134 H Random Glucose 77 Calcium 9.3 Total Bilirubin 1.6 H AST 33 ALT 41 H Alkaline Phosphatase 70 Total Protein 5.5 L Albumin 3.5 Peritoneal Albumin Peritoneal LDH Microbiology Microbiology Results: Microbiology 05/15/25 02:42 Blood - Venous Blood Culture - Preliminary No growth after 48 hours. 05/15/25 02:42 Blood - Venous Blood Culture - Preliminary No growth after 48 hours. Procedures Date of Service Date of Service: 05/19/25 Assessment & Plan Assessment and plan (1) LY (acute kidney injury): Status: Acute Plan LY likely hepatorenal sydnrome given low urine sodium, cirrhosis and symptoms of dyspnea upon standing. may also have component of ATN from intravascular volume depletion/poor PO intake in setting of losartan and jardiance use resolving, creatinine normalized UA is bland CT without evidence of hydronephrosis or stones urine sodium <20. recommend starting on spironolactone 25mg PO daily, may increase to 50mg PO as tolerated - patient has not had any hypokalemia since admission continue lasix 20mg PO daily recommend avoiding nephrotoxins continue supportive care Discussed with Dr Jaimes Time Spent With Patient Time: Total time managing care of this patient today ____ minutes. Progress Note: Quality Stroke Does the patient have a stroke diagnosis?: No Reason for No Anti-thrombotic by Day Two: Contraindicated
[2025-05-19 15:49] VITALS: BP 125/84; PULSE 103; RESP 20; TEMP 36.4; O2SAT 91
--- NOTE | 2025-05-19 16:12 | MHC.CM.PN ---
PT MEDICALLY CLEARED FOR DC W/P.T. RECOMMENDING OUTPT SERVICES AND NEW PT APPT W/DR. DIANA JEAN 05/23 AT 1PM. FAMILY AT BEDSIDE FOR TRANSPORT
[2025-05-19 16:36] LABS: Glucose, Whole Blood 85 mg/dL (60-115)
--- NOTE | 2025-05-19 16:40 | PM.DS ---
DS: Providers Provider Date of Service: 05/19/25 Date of admission: 05/14/25 22:37 Date of discharge: 05/19/25 Primary care physician: None Physician Consults: 05/15/25 00:12 Consult to Cardiology Routine Consulting Provider: [facility] Reason for consultation: HFrEF, AFIB pln for ablation on eliquis INR 4.2 Has provider been notified: No 05/15/25 00:18 Consult to Nephrology Routine Consulting Provider: [facility] Reason for consultation: LY ? cardiorenal syndrome Has provider been notified: No 05/15/25 13:20 Consult to Gastroenterology Routine Consulting Provider: [facility] Reason for consultation: history of shock liver, cirrhosis, ascites, new LY, platypnoea DS: Diagnosis Discharge Diagnosis (1) LY (acute kidney injury): Status: Acute DS: Summary Hospital Course Time spent discussing smoking cessation with patient: more than 10 minutes Status at Discharge Cognitive/behavioral status at discharge: Cirrhosis secondary to congestive hepatopathy, cardiorenal syndrome - alcoholic steatohepatitis - VERONICA - congestive hepatopathy 2/2 RV failure (& TR Regurg) Synthetic liver dysfunction resolved with initiation of meds and paracentesis Abdominal ascites moderate volume status post paracentesis-transudative Mesenteric ascites-stable, started on Lasix and spironolactone Elevated INR -resolved with monitoring Recent history of shock liver resolving Imaging and workup thus far suggestive of HRS in the setting of [facility] mx with spironolactone 25 mg p.o. daily and furosemide 20 mg daily- initated this admission with good effect. s/p RLQ Paracentesis (05/16/25) - transudative appearing Patient has been set up with Gastroenterology-please follow-up Cholilithiasis without cholecystitis-outpatient follow-up with GI -patient has been set up with [id number] outpatient Paroxysmal Afib with RVR s/p prior cardioversions - 2/2 dec intravascular volume - resumed home Eliquis since INR at goal (synthetic liver dysfunction), follow-up with PCP, gastroenterology outpatient settings for seizure monitoring of INR and further care. HFrEF 40-45% - GDMT - ROMA/ARB limited given LY - resume when recovery noted , MRB initiated, BB resumed given HDS LY -prenal +intrrenal resolving, not requiring dialysis at this time. HyperK - 2/2 LY - resolved with meds, given that we have initiated Lasix, we expect this to get better. He needs to follow up with his PCP/GI/hand kiss setter CAD - resumed aspirin given optimization of medication Pna - responding to po abx - doxycycline needs to complete 4 more days from the time of discharge to complete total antibiotic course, patient not hypoxic on room air at the time of discharge DM2 euglycemic this admission, resumed home meds Patient is being discharged, hemodynamically stable, INR therapeutic, resumed his home meds, initiated Lasix and spironolactone, PT is recommending outpatient cardiac rehab which is hand kiss setter needs to clear for him for. This note is constructed using voice recognition software. While every effort has been made to ensure accuracy, manufacturing industrial engineer errors may have been included. Total time managing care of this patient today: 35 minutes. Functional status at discharge: independent ambulation Overall status at discharge: patient is back to baseline Time Attestation Discharge Coordination Time (in mins): 35 Quality: Safe Use of Opioids Does Pt have an Active Cancer Diagnosis on the Problem List?: No Quality: Stroke Does the patient have a stroke diagnosis?: No Physical Exam Exam: Exam: General: AOx3, no acute distress Resp: CTA bilaterally CVS: S1, S2, RRR GI: +BS, NT, distended, leaking from the site, minimally, s/p control with bandage. Skin: Warm, dry Extremities: No edema Psych: Appropriate affect Vital Signs: Vital Signs: Last Vital Signs Temp 97.5 F 05/19/25 15:49 Pulse 103 H 05/19/25 15:49 Resp 20 05/19/25 15:49 BP 125/84 05/19/25 15:49 Pulse Ox 91 L 05/19/25 15:49 O2 Del Method Room Air 05/19/25 15:49 O2 Flow Rate 2 05/16/25 07:55 BMI result Body Mass Index 29.7 DS: Data Data Completed and Pending Completed studies during hospitalization [Text1]: Procedures Assistance with Respiratory Ventilation, Less than 24 Consecutive Hours, Continuous Positive Airway Pressure (03/08/25) [employer] of Cardiac Rhythm, Single (03/08/25) Ultrasonography of Heart with Aorta, Transesophageal (03/08/25) Pending studies at discharge: Pending at discharge 05/16/25 18:20 Cytology [PTH] Routine Labs on day of discharge: Laboratory Results - last 24 hr 05/16/25 05/18/25 05/19/25 15:50 21:17 06:24 Hold Purple Top SEE NOTE PT 21.3 H INR 1.9 H Sodium 142 Potassium 3.9 D Chloride 107 Carbon Dioxide 29 Anion Gap 10 L BUN 12 Creatinine 1.04 Estim Creat Clear Calc 75.8 Estimated GFR > 60 POC Glucose 136 H Random Glucose 77 Calcium 9.3 Total Bilirubin 1.6 H AST 33 ALT 41 H Alkaline Phosphatase 70 Total Protein 5.5 L Albumin 3.5 Peritoneal Albumin 2.1 Peritoneal LDH 68 05/19/25 05/19/25 05/19/25 08:15 11:09 16:32 Hold Purple Top PT INR Sodium Potassium Chloride Carbon Dioxide Anion Gap BUN Creatinine Estim Creat Clear Calc Estimated GFR POC Glucose 116 H 134 H 85 Random Glucose Calcium Total Bilirubin AST ALT Alkaline Phosphatase Total Protein Albumin Peritoneal Albumin Peritoneal LDH Preliminary micro results at discharge 05/15/25 02:42 Blood Culture - Preliminary Blood - Venous No growth after 48 hours. 05/15/25 02:42 Blood Culture - Preliminary Blood - Venous No growth after 48 hours. Discharge Plan Discharge Anticipated Discharge Date/Time: 05/19/25 16:35 Patient Disposition: Home, Self-Care Discharge Diagnosis: LY likely hepatorenal syndrome Referrals: James Melgoza MD [Physician, Internal Medicine] - 05/23/25 1:00 pm Referral Note: PLEASE ARRIVE 1OMIN EARLY TO COMPLETE NEW PATIENT PAPERWORK. You Amos MD [Physician, Gastroenterology] - 1 Week James Daon MD [Physician, Cardiology] - 1 Week Referral Note: PLEASE ASK COREM[employer]ING SUPERVISOR IF PT SHOULD BE REFERRED TO OUT PT CARDIAC REHAB. Discharge Medications: New sennosides [Senna Lax] 8.6 mg Tablet 17.2 mg PO BEDTIME 30 Days Qty: 60 0RF polyethylene glycol 3350 17 gram Powder In Packet 17 g PO DAILY 30 Days Qty: 30 0RF Antacid Ext Str (calcium carb) 300 mg (750 mg) Tablet,Chewable 2.5 tab PO Q4H PRN (Reason: Heartburn) 30 Days Qty: 30 0RF doxycycline monohydrate 100 mg Capsule 100 mg PO BID 2 Days Qty: 4 0RF spironolactone 25 mg tablet 25 mg PO DAILY 30 Days Qty: 30 0RF furosemide [Lasix] 20 mg tablet 20 mg PO DAILY Qty: 30 3RF Continued losartan 50 mg tablet 50 mg PO BID gabapentin 400 mg capsule 400 mg PO BID albuterol sulfate 90 mcg/actuation HFA aerosol inhaler 2 puff inhalation Q4H PRN (Reason: Shortness Of Breath Or Wheezing) Jardiance 25 mg tablet 25 mg PO DAILY Ozempic 1 mg/dose (4 mg/3 mL) pen injector 1 mg SUBCUT FR tamsulosin 0.4 mg Capsule 0.4 mg PO DAILY cholecalciferol (vitamin D3) [Vitamin D3] 50 mcg (2,000 unit) Capsule 50 mcg PO DAILY Eliquis 5 mg Tablet 5 mg PO BID Qty: 180 0RF metformin 500 mg tablet extended release 24 hr 500 mg PO DAILY venlafaxine 75 mg capsule,extended release 24hr 225 mg PO DAILY potassium chloride 20 mEq tablet,ER particles/crystals 20 meq PO DAILY atorvastatin 40 mg tablet 40 mg PO DAILY hydralazine 10 mg tablet 10 mg PO TID aspirin 81 mg tablet 81 mg PO DAILY furosemide [Lasix] 20 mg tablet 20 mg PO DAILY metoprolol succinate 50 mg tablet extended release 24 hr 50 mg PO DAILY Qty: 90 3RF Held amiodarone 200 mg tablet 200 mg PO BID Hold Instructions: Resume on 05/28/25. please f/up with PCP and cardiology for resumption of meds Discharge Orders: Discharge Order (Routine); Ordered 05/19/25 Ordered By: Georgiana Bhat Diet: Low salt diet Activity on Discharge: As tolerated Stand Alone Forms: Patient Portal Discharge page Print Language: Maltese Care Plan Goals: Following up renal function Follow-up with GI Follow-up with cardiology Follow-up with PCP Outpatient Cardiology rehab has been suggested by PT once cleared by his hand kiss setter Does not need any dialysis for his cardiorenal syndrome-Nephrology we will follow outpatient Health Concerns: See above Plan of Treatment: See above Assessment: See above Patient Instructions: Acute Kidney Injury (DC)
[2025-05-19 16:57] VITALS: BP 156/93
== END 2025-05-19 18:18 | disposition home or self-care (01) | DRG 441 ==
LOC: HO.ED 22:24 → HO.EDOVER 22:40 → HO.IMC 05-15 07:58
PROVIDERS: Hospitalist; Internal Medicine Gastroenterology; Nurse Practitioner Family; Admitting Provider Internal Medicine; Emergency Provider Student in an Organized Health Care Education/Training Program; Visit Provider Student in an Organized Health Care Education/Training Program
DX: K76.7 Hepatorenal syndrome (principal); N17.0 Acute kidney failure with tubular necrosis; I13.0 Hypertensive heart and chronic kidney disease with heart failure and stage 1 through stage 4 chronic kidney disease, or unspecified chronic kidney disease; J44.0 Chronic obstructive pulmonary disease with (acute) lower respiratory infection; R18.8 Other ascites; I50.22 Chronic systolic (congestive) heart failure; K74.69 Other cirrhosis of liver; I25.10 Atherosclerotic heart disease of native coronary artery without angina pectoris; K75.81 Nonalcoholic steatohepatitis (NASH); E11.42 Type 2 diabetes mellitus with diabetic polyneuropathy; K59.09 Other constipation; E87.5 Hyperkalemia; R79.1 Abnormal coagulation profile; I48.0 Paroxysmal atrial fibrillation; I25.5 Ischemic cardiomyopathy; I08.1 Rheumatic disorders of both mitral and tricuspid valves; Z91.81 History of falling; I27.20 Pulmonary hypertension, unspecified; E11.22 Type 2 diabetes mellitus with diabetic chronic kidney disease; K80.20 Calculus of gallbladder without cholecystitis without obstruction; N18.9 Chronic kidney disease, unspecified; K70.0 Alcoholic fatty liver; I50.82 Biventricular heart failure; F10.11 Alcohol abuse, in remission; Z20.822 Contact with and (suspected) exposure to COVID-19; Z95.5 Presence of coronary angioplasty implant and graft; Z79.01 Long term (current) use of anticoagulants; Z79.82 Long term (current) use of aspirin; Z79.899 Other long term (current) drug therapy
CPT/HCPCS: 36415; 49083; 71045; 74176; 74183; 80053; 81001; 82042; 82105; 82150; 82550; 82570; 82947; 83615; 83735; 83880; 84300; 84439; 84443; 84484; 85025; 85610; 86850; 86900; 86901; 87040; 87502; 87635; 89051; 93005; 93306; 94640; 97116; 97161; 99285; A9585; C1729; J0456; J0696; J1938; J2003; J2405; J3475; J7120; Q9957

== ENCOUNTER 2025-05-14 22:37 | Outpatient (BNV) | payer BC, SELFPAY | END 2025-05-15 03:00 | PROVIDERS: Admitting Provider Internal Medicine; Emergency Provider Student in an Organized Health Care Education/Training Program; Visit Provider Student in an Organized Health Care Education/Training Program | DX: R94.5 Abnormal results of liver function studies (principal) | CPT/HCPCS: 74176 ==

== ENCOUNTER 2025-05-14 22:37 | Outpatient (BNV) | payer BC, SELFPAY | END 2025-05-14 22:47 | PROVIDERS: Admitting Provider Internal Medicine; Emergency Provider Student in an Organized Health Care Education/Training Program; Visit Provider Student in an Organized Health Care Education/Training Program | DX: R53.1 Weakness (principal) | CPT/HCPCS: 71045 ==

== ENCOUNTER 2025-05-14 22:37 | Outpatient (BNV) | payer BC, SELFPAY | END 2025-05-16 15:04 | PROVIDERS: Admitting Provider Internal Medicine; Emergency Provider Student in an Organized Health Care Education/Training Program; Visit Provider Radiology Diagnostic Radiology | DX: R18.8 Other ascites (principal) | CPT/HCPCS: 49083 ==

== ENCOUNTER 2025-05-14 22:37 | Outpatient (BNV) | payer BC, SELFPAY | END 2025-05-19 08:58 | PROVIDERS: Admitting Provider Internal Medicine; Emergency Provider Student in an Organized Health Care Education/Training Program; Visit Provider Internal Medicine Cardiovascular Disease | DX: I48.91 Unspecified atrial fibrillation (principal); I45.2 Bifascicular block | CPT/HCPCS: 93010 ==

== ENCOUNTER 2025-05-14 22:37 | Outpatient (BNV) | payer BC, SELFPAY | END 2025-05-15 07:00 | PROVIDERS: Admitting Provider Internal Medicine; Emergency Provider Student in an Organized Health Care Education/Training Program; Visit Provider Internal Medicine | DX: I50.20 Unspecified systolic (congestive) heart failure (principal); I44.0 Atrioventricular block, first degree; I45.10 Unspecified right bundle-branch block | CPT/HCPCS: 93010; 93306 ==

== ENCOUNTER → 2025-05-14 22:37 | Outpatient (BNV) | payer BC, SELFPAY | PROVIDERS: Admitting Provider Internal Medicine; Emergency Provider Student in an Organized Health Care Education/Training Program; Visit Provider Nurse Practitioner Family | DX: N17.9 Acute kidney failure, unspecified (principal) | CPT/HCPCS: 99232; 99239 ==

== ENCOUNTER → 2025-05-14 22:37 | Outpatient (BNV) | payer BC, SELFPAY | PROVIDERS: Admitting Provider Internal Medicine; Emergency Provider Student in an Organized Health Care Education/Training Program; Visit Provider Nurse Practitioner Family | DX: N17.9 Acute kidney failure, unspecified (principal) | CPT/HCPCS: 99231 ==

== ENCOUNTER 2025-05-23 12:54 | Outpatient (AMB) | payer BC, SELFPAY ==
[2025-05-23 12:59] VITALS: BP 140/100; PULSE 107; RESP 18; TEMP 36.2; O2SAT 94; BMI 28.8
--- NOTE | 2025-05-23 12:59 | A.OFFPC_ITS ---
Vital Signs 05/23/25 12:59 Height 6 ft 1 in Weight 218 lb BMI 28.8 BP 140/100 H Blood Pressure Location Rt brachial Position Sitting Respiration 18 Pulse 107 H Pulse Source Pulse Oximeter Temp 97.1 F Temp Source Temporal Artery Scan Pulse Oximetry (%) 94 Oxygen Delivery Method Room Air Intake Visit Reasons: establish care Sky Diver Required: No Accompanied by: Self / Same As Patient Allergies erythromycin base Adverse Reaction (Verified 05/23/25 13:05) Unknown lisinopril Adverse Reaction (Verified 05/23/25 13:05) Unknown Penicillins Adverse Reaction (Verified 05/23/25 13:05) Unknown Medication List - Last Reconciled 05/23/25 by James Boyle MD albuterol sulfate 90 mcg/actuation 2 puffs inhalation Q4H PRN amiodarone 200 mg PO BID Held on 05/19/25. Instructions: Resume on 05/28/25. please f/up with PCP and cardiology for resumption of meds apixaban (Eliquis) 5 mg PO BID aspirin 81 mg PO DAILY atorvastatin 40 mg PO DAILY bupropion HCl SR (Wellbutrin SR) 150 mg PO QPM calcium carbonate (Antacid Ext Str (calcium carb)) 2.5 tabs PO Q4H PRN 30 days cholecalciferol (vitamin D3) (Vitamin D3) 50 mcg PO DAILY empagliflozin (Jardiance) 25 mg PO DAILY furosemide (Lasix) 20 mg PO DAILY gabapentin 400 mg PO BID hydralazine 10 mg PO TID losartan 50 mg PO BID metformin ER 500 mg PO DAILY metoprolol succinate ER 50 mg PO DAILY polyethylene glycol 3350 17 grams PO DAILY 30 days semaglutide (Ozempic) 1 mg (0.75 mL) subcut FR sennosides (Senna Lax) 17.2 mg (2 x 8.6 mg) PO BEDTIME 30 days spironolactone 25 mg PO DAILY 30 days tamsulosin 0.4 mg PO DAILY venlafaxine ER 225 mg (3 x 75 mg) PO DAILY Tobacco use date assessed: 05/23/25 Fall risk assessment: 1 Fall in past year Last assessed Fall Risk: 05/23/25 Dental Screening Dental Screen Date: 05/23/25 HPI HPI Comments History of Present Illness Details The patient is a 75-year-old male presenting for the establishment of care and management of multiple chronic problems. The patient reports experiencing atrial fibrillation intermittently, with episodes of fatigue when in atrial fibrillation. He was recently discharged from the hospital where he was advised to follow up on renal function and GI for cirrhosis. He was discharged on lasix and spironolactone. He is currently on multiple medications including Albuterol, ASA, atorvastatin, Bupropion, Vit D3, Jardiance, Gabapentin, Hydralazine, Losartan, Metformin, Metoprolol, Miralax, Ozempic, Spironolactone, Tamsulosin, Venlafaxine and apixaban for atrial fibrillation management. The patient has a history of acute kidney injury and possible liver dysfunction, with a referral to a contact center assistant for further evaluation. He has been advised to follow up with a kidney specialist and a medical lab specialist for ongoing management. He was found to have lung consolidation while in the hospital and was treated with Abx. CXR report recommended 2 month follow-up to confirm resolution of consolidation. His vaccination status includes a history of receiving the shingles and pneumonia vaccines, but he has not received the flu vaccine this year. [facility] Medical History Hypertension Constipation Gallstone Depression Visual hallucination Myocardial infarct CAD (coronary artery disease) History of cardioversion Diabetes 1.5, managed as type 2 BPH (benign prostatic hyperplasia) Shock liver VERONICA (nonalcoholic steatohepatitis) History of alcohol abuse Essential hypertension A-fib Mass, brain Sarcoidosis GERD (gastroesophageal reflux disease) Hyperlipidemia Type 2 diabetes mellitus CHF (congestive heart failure) Surgical History H/O heart artery stent Social History Household Members: None Housing: Apartment Do you presently have visiting nurse or other home services: No Comment: refuse camera in room Patient Tobacco Use Status: Never used Tobacco service: Yes Current occupational status: retired Cognitive needs: No Hearing needs: Yes Vision needs: Yes Questionnaire PHQ-9 Over the last 2 weeks, how often have you been bothered by any of the following problems? 1. Little interest or pleasure in doing things: not at all 2. Feeling down, depressed, or hopeless: not at all 3. Trouble falling or staying asleep, or sleeping too much: not at all 4. Feeling tired or having little energy: nearly every day 5. Poor appetite or overeating: nearly every day 6. Feeling bad about yourself - or that you are a failure or have let yourself or your family down: not at all 7. Trouble concentrating on things, such as reading the newspaper or watching television: not at all 8. Moving or speaking so slowly that other people could have noticed. Or the opposite - being so fidgety or restless that you have been moving around a lot more than usual: nearly every day 9. Thoughts that you would be better off or of hurting yourself in some way: not at all Total score: 9 Source: Developed by Drs. Teo Gomez, Megan Martins, Perry Farias and colleagues, with an educational benito from [employer]. Thrive Questionnaire Date Thrive assessed: 05/15/25 I am a: Patient What is your living situation today?: I have a steady place to live Within the past 12 months, did the food you bought not last and you didn't have the money to get more?: Never true Within the past 12 months, did you worry whether your food would run out before you got money to buy more?: Never true Do you have trouble paying for medicines?: No Do you have trouble getting transportation to medical appointments?: No Do you have trouble paying your heating and electricity bill?: No Do you have trouble taking care of your child, family member or friend?: No Do you have trouble with day-to-day activities such as bathing, preparing meals, shopping, managing finances, etc.?: No Are you currently unemployed and looking for a job?: No Are you interested in more education?: No Please select the resources that you would like help with: None Currently or been in a relationship where the following occur: No concerns reported THRIVE Score: 0 AUDIT C Alcohol Use Questionnaire (AUDIT-C) 1. How often do you have a drink containing alcohol?: Monthly or less 2. How many drinks containing alcohol do you have on a typical day when you are drinking?: 1 or 2 3. How often do you have six or more drinks on one occasion?: Never Total Score: 1 ALO-7 AMB Questionnaire ALO-7 Feeling nervous, anxious, or on edge: 0 = Not at all Not being able to stop or control worryin = Not at all Worrying too much about different things: 0 = Not at all Trouble relaxin = Not at all Being so restless that it is hard to sit still: 0 = Not at all Becoming easily annoyed or irritable: 0 = Not at all Feeling afraid as if something awful might happen: 0 = Not at all Total ALO-7 score (0-4 normal; 5-9 mild; 10-14 moderate; 15-21 severe): 0 Source: Developed by Drs. Teo Gomez, Megan Martins, Perry Farias and colleagues, with an educational benito from [employer]. Review of Systems Const Details: Positives besides what was mentioned in HPI are in BOLD Constitutional: No Weight Change, No Fever, No Chills, No Night Sweats, No Fatigue, No Malaise ENT/Mouth: No Hearing Changes, No Ear Pain, No Nasal Congestion, No Sinus Pain, No Hoarseness, No sore throat, No Rhinorrhea, No Swallowing Difficulty Eyes: No Eye Pain, No Swelling, No Redness, No Foreign Body, No Discharge, No Vision Changes Cardiovascular: No Chest Pain, No SOB, No PND, No Dyspnea on Exertion, No Orthopnea, No Claudication, No Edema, No Palpitations Respiratory: No Cough, No Sputum, No Wheezing, No Smoke Exposure, No Dyspnea Gastrointestinal: No Nausea, No Vomiting, No Diarrhea, No Constipation, No Pain, No Heartburn, No Anorexia, No Dysphagia, No Hematochezia, No Melena, No Flatulence, No Jaundice Genitourinary: No Dysmenorrhea, No DUB, No Dyspareunia, No Dysuria, No Urinary Frequency, No Hematuria, No Urinary Incontinence, No Urgency, No Flank Pain, No Urinary Flow Changes, No Hesitancy Musculoskeletal: No Arthralgias, No Myalgias, No Joint Swelling, No Joint Stiffness, No Back Pain, No Neck Pain, No Injury History Skin: No Skin Lesions, No Pruritis, No Hair Changes, No Breast/Skin Changes, No Nipple Discharge Neuro: No Weakness, No Numbness, No Paresthesias, No Loss of Consciousness, No Syncope, No Dizziness, No Headache, No Coordination Changes, No Recent Falls Psych: No Anxiety/Panic, No Depression, No Insomnia, No Personality Changes, No Delusions, No Rumination, No SI/HI/AH/VH, No Social Issues, No Memory Changes, No Violence/Abuse Hx., No Eating Concerns Heme/Lymph: No Bruising, No Bleeding, No Transfusions History, No Lymphadenopathy Endocrine: No Polyuria, No Polydipsia, No Temperature Intolerance Physical exam (Primary Care) Vital Signs: Last Vital Signs Temp 97.1 F 05/23/25 12:59 Pulse 107 H 05/23/25 12:59 Resp 18 05/23/25 12:59 BP 140/100 H 05/23/25 12:59 Pulse Ox 94 05/23/25 12:59 Oxygen Delivery Method Room Air 05/23/25 12:59 BMI result Body Mass Index 28.8 Tobacco/Smoking Status: Tobacco use Status Tobacco use date assessed 05/23/25 05/23/25 13:19 Patient Tobacco Use Status Never used Tobacco 05/23/25 13:19 PHQ-9: PHQ-9 Score PHQ-9: Total score 9 05/23/25 13:19 Thrive Assessment: Date of Thrive Assessment Date Thrive assessed 05/15/25 05/23/25 13:19 Currently or been in a relationship where the following occur: No concerns reported Const Other: Pertinent findings are in BOLD GENERAL APPEARANCE NAD, activity normal for age, well developed/ well nourished, no cyanosis, pallor, or diaphoresis. EYES lids/conjunctiva normal. EARS/NOSE/THROAT Mucous membranes moist, nares normal, lips/teeth normal uvula midline without oral pharyngeal erythema, exudate or swelling TMs normal bilaterally. No lymphangitis/lymphedema. HEAD/NECK normocephalic atraumatic, no facial trauma, neck is supple. RESPIRATORY respiratory effort normal, speaks in full sentences, no tripod position, no accessory muscle use. Lungs clear to auscultation without rhonchi, wheezes, rales CARDIAC Irregular rate and rhythm, no edema. ABDOMINAL Soft, ND/NT. Fluid wave present. No pulsatile masses on exam, rebound tenderness, Mccrary sign or pain over Mcburney's point. MUSCLES/EXTREMITIES No abnormal range of motion, +1 BLLE. SKIN Warm, pink and dry. No rashes, dermatoses, petechiae or lesions. NEUROLOGICAL Speech is clear and appropriate. Normal level of consciousness. Gait and coordination are normal. 5/5 strength in all extremities. PSYCH Normal mood and affect. Judgement/competence is appropriate Coding Level of Care Code Est Pt Level 5 (61365) Diagnoses Anemia, unspecified type D64.9 Anemia type: unspecified type LY (acute kidney injury) N17.9 Consolidation lung J18.1 Moderate episode of recurrent major depressive disorder F33.1 Major depression recurrence: recurrent Active/Remission status: currently active Major depression episode severity: moderate A-fib I48.0 Atrial fibrillation type: paroxysmal Essential hypertension I10 Hyperlipidemia, unspecified hyperlipidemia type E78.5 Hyperlipidemia type: unspecified Other cirrhosis of liver K74.69 Hepatic cirrhosis type: other cirrhosis Health maintenance examination Z00.00 Vitamin D deficiency E55.9 Diabetes 1.5, managed as type 2 E13.9 Weakness R53.1 Heart failure, unspecified HF chronicity, unspecified heart failure type I50.9 Heart failure type: unspecified Heart failure chronicity: unspecified Liver nodule K76.89 Time Spent (min) 45 Comment Time spent on reviewing the patient's chart, medicaitons refills, labs. Assessment & Plan Assessment & Plan (1) Anemia: Code(s): D64.9 - Anemia, unspecified Category: Medical Qualifiers: Anemia type: unspecified type Qualified Code(s): D64.9 - Anemia, unspecified Plan: Iron panel, vit B12, Folate. (2) LY (acute kidney injury): Code(s): N17.9 - Acute kidney failure, unspecified Category: Medical Plan: Repeat renal funcion ordered today. Patient will f-u with renal doctor. (3) Consolidation lung: Code(s): J18.1 - Lobar pneumonia, unspecified organism Category: Medical Plan: Repeat Xray ordered in two months to check for resolution. (4) MDD (major depressive disorder): Code(s): F32.9 - Major depressive disorder, single episode, unspecified Category: Medical Qualifiers: Major depression recurrence: recurrent Active/Remission status: currently active Major depression episode severity: moderate Qualified Code(s): F33.1 - Major depressive disorder, recurrent, moderate Plan: Psychiatry referral. Venlafaxine and Bupropion. Patient denies SI or HI. (5) A-fib: Code(s): I48.91 - Unspecified atrial fibrillation Category: Medical Qualifiers: Atrial fibrillation type: paroxysmal Qualified Code(s): I48.0 - Paroxysmal atrial fibrillation Plan: s/p unsuccessful Cardioversion in the hospital. In A fib in clinic today. Amiodarone on hold until patient sees elctrophysiology specialist. Scheduled for ablation in May 2025. Continue Metoprolol and Eliquiss. (6) Essential hypertension: Code(s): I10 - Essential (primary) hypertension Category: Medical Plan: Continue Hydralazine, losartan, and metoprolol. (7) Hyperlipidemia: Code(s): E78.5 - Hyperlipidemia, unspecified Category: Medical Qualifiers: Hyperlipidemia type: unspecified Qualified Code(s): E78.5 - Hyperlipidemia, unspecified Plan: Continue Atorvastatin. Repeat labs ordered. (8) Cirrhosis: Code(s): K74.60 - Unspecified cirrhosis of liver Category: Medical Qualifiers: Hepatic cirrhosis type: other cirrhosis Qualified Code(s): K74.69 - Other cirrhosis of liver Plan: Labs ordered. HBV, HCV, Ceruloplasmin, AMA, ASMA, SANDIP, A1AT. Diagnosis is not confirmed on MRI. However CT suggested cirrhosis. GI referral to assess for cirrhosis status. (9) Health maintenance examination: Code(s): Z00.00 - Encounter for general adult medical examination without abnormal findings Category: Medical Plan: CBC, CMP, Lipid panel, A1C, TSH w T4. Ordered for next visit. Completed Shingles vaccine. Patient reports completing COVID and pneumococcal vaccines in the past. Patient will get the flu vaccine from retail pharmacy. Colonoscopy: 45-75. Aged out. AAA: NI Ct lung: NI PSA: aged out HIV: NI HBV: ordered. HCV: Ordered (10) Vitamin D deficiency: Code(s): E55.9 - Vitamin D deficiency, unspecified Category: Medical Plan: Continue Vit D. We will recheck level with next labs. (11) Diabetes 1.5, managed as type 2: Code(s): E13.9 - Other specified diabetes mellitus without complications Category: Medical Plan: - Continue Metformin. - Referral to podiatry for routine diabetic foot care.- Next visit. - Referral to ophthalmology for annual diabetic eye screening. - Next visit. - Microalbumin/ Cr ratio. NI since the patient is already on ARB. (12) Weakness: Code(s): R53.1 - Weakness Category: Medical Plan: Most likely 2/2 A fib vs TEA. We will re-assess fatigue after ablation procedure. (13) Heart failure: Code(s): I50.9 - Heart failure, unspecified Category: Medical Qualifiers: Heart failure type: unspecified Heart failure chronicity: unspecified Qualified Code(s): I50.9 - Heart failure, unspecified Plan: Reported HFrEF in the chart. Most recent echo from 02/2025 showed EF of 50-55%. Patient currently on diuretics so it is hard to assess for fluid edema. NO JVD and no crackles on exam. Patient has F-U with cardiology and might benefit from a repeat echo to confirm diagnosis. For now we will continue GDMT: Losartan, lasix, jardiance, spironolactone. (14) Liver nodule: Code(s): K76.89 - Other specified diseases of liver Category: Medical Plan: Identified on CT from 05/14/2025. GI referral. AFP ordered. Plan I discussed with the patient the management of atrial fibrillation, including the continuation of apixaban and the upcoming ablation procedure scheduled for July. We reviewed the need for follow-up with nephrology and gastroenterology, emphasizing the importance of conducting renal and liver function tests prior to these appointments. I also addressed the patient's medication regimen and ensured all prescriptions were updated in the system. Orders: Orders IRON PROFILE Today D64.9 - Anemia, unspecified, Z00.00 - Encounter for general adult medical examination without abnormal findings Hepatitis B Core Antibody Today K74.60 - Unspecified cirrhosis of liver, Z00.00 - Encounter for general adult medical examination without abnormal findings Hepatitis B Surface Antibody Today K74.60 - Unspecified cirrhosis of liver, Z00.00 - Encounter for general adult medical examination without abnormal findings Hepatitis C Antibody Reflex Today Z00.00 - Encounter for general adult medical examination without abnormal findings Ferritin Today K74.60 - Unspecified cirrhosis of liver, Z00.00 - Encounter for general adult medical examination without abnormal findings Ceruloplasmin Today K74.60 - Unspecified cirrhosis of liver, Z00.00 - Encounter for general adult medical examination without abnormal findings SANDIP Reflex Titer and Pattern Today K74.60 - Unspecified cirrhosis of liver, Z00.00 - Encounter for general adult medical examination without abnormal findings AFP Quad Screen Today K74.60 - Unspecified cirrhosis of liver, - Encounter for general adult medical examination without abnormal findings Comprehensive Met. Panel 10/29/25 - Encounter for general adult medical examination without abnormal findings Comprehensive Met. Panel Today N17.9 - Acute kidney failure, unspecified, - Encounter for general adult medical examination without abnormal findings XR chest 2V 07/18/25 J18.1 - Lobar pneumonia, unspecified organism, . - Encounter for general adult medical examination without abnormal findings Complete Blood Count no Diff 10/29/25. - Encounter for general adult medical examination without abnormal findings Hemoglobin A1c 10/29/25. - Encounter for general adult medical examination without abnormal findings TSH reflex Free T4 10/29/25. - Encounter for general adult medical examination without abnormal findings Vitamin D 1,25 dihydroxy 10/29/25. - Encounter for general adult medical examination without abnormal findings Alpha 1 Anti-trypsin Today K74.60 - Unspecified cirrhosis of liver, Z. - Encounter for general adult medical examination without abnormal findings Hepatitis B Surface Antigen Today K74.60 - Unspecified cirrhosis of liver, . - Encounter for general adult medical examination without abnormal findings Mitochondrial Antibody Today K74.60 - Unspecified cirrhosis of liver, . - Encounter for general adult medical examination without abnormal findings Smooth Muscle Antibody Today K74.60 - Unspecified cirrhosis of liver, . - Encounter for general adult medical examination without abnormal findings Immunoglobulins,IgG IgA IgM Today K74.60 - Unspecified cirrhosis of liver, . - Encounter for general adult medical examination without abnormal findings Vitamin B12 and Folate Today D64.9 - Anemia, unspecified Referrals Gastroenterology Referral K74.60 - Unspecified cirrhosis of liver Psychiatry Referral F32.9 - Major depressive disorder, single episode, unspecified, . - Encounter for general adult medical examination without abnormal findings Medications: New cholecalciferol (vitamin D3) (Vitamin D3) 50 mcg PO DAILY 90 caps 3RF semaglutide (Ozempic) 1 mg (0.75 mL) subcut FR 3 mL 12RF tamsulosin 0.4 mg PO DAILY 90 caps 3RF venlafaxine ER 225 mg (3 x 75 mg) PO DAILY 90 caps 3RF albuterol sulfate 90 mcg/actuation 2 puffs inhalation Q4H PRN 8.5 grams 3RF Shortness Of Breath Or Wheezing aspirin 81 mg PO DAILY 90 tabs 3RF atorvastatin 40 mg PO DAILY 90 tabs 3RF gabapentin 400 mg PO BID 180 caps 3RF hydralazine 10 mg PO TID 90 tabs 3RF empagliflozin (Jardiance) 25 mg PO DAILY 90 tabs 3RF losartan 50 mg PO BID 100 tabs 3RF metformin ER 500 mg PO DAILY 90 tabs 3RF bupropion HCl SR (Wellbutrin SR) 150 mg PO QPM 90 tabs 3RF Refilled apixaban (Eliquis) 5 mg PO BID 180 tabs 3RF calcium carbonate (Antacid Ext Str (calcium carb)) 2.5 tabs PO Q4H PRN 30 tabs 0RF Heartburn 30 days polyethylene glycol 3350 17 grams PO DAILY 30 ea 0RF 30 days metoprolol succinate ER 50 mg PO DAILY 90 tabs 3RF spironolactone 25 mg PO DAILY 30 tabs 0RF 30 days Discontinued doxycycline monohydrate Discontinued Reason: No Longer Medically Relevant 100 mg PO BID 2 days 4 caps 0RF
--- OUTSIDE RECORDS SUMMARY | 2025-05-23 14:17 | XMS_ITS | Clinical Summary ---
Author Organization [facility] Address [address], [place] [address] Phone Care Team Providers Care Glove Wrapper Name Role Phone Unavailable Primary Care Provider [...] Diagnosed Date Abnormal EKG 05/16/2024 CAD in samish artery 05/16/2024 Type 2 diabetes mellitus without complication Atherosclerosis of coronary artery without angin a pectoris 07/02/2023 Stented coronary artery 07/02/2023 Mixed hyperlipidemia 01/27/2023 Essential hypertension 07/17/2022 Obstructive sleep apnea syndrome 07/17/2022 Paroxysmal atrial fibrillation 07/17/2022 Chronic lung disease 04/06/2022 Moderate mitral regurgitation 04/06/2022 Chest pain 09/23/2020 Myocardial infarction 09/23/2020 Encounters Date Type Department Care Team Description 04/02/2025 Telephone [facility] [address] [place] [id number] Marian Holland from Last 3 Months Immunizations [...] age to complete this topic Insurance [facility] Address: [facility] [address] [place] [address] [facility]
--- OUTSIDE RECORDS SUMMARY | 2025-05-23 14:17 | XMS_ITS | Clinical Summary ---
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
--- OUTSIDE RECORDS SUMMARY | 2025-05-23 14:17 | XMS_ITS | Clinical Summary ---
Author Organization [facility] Address [address] [place] [address] Phone Care Team Providers Care Electrical Products Sales Engineer Name Role Phone Pcp, Unknown Primary Care [...] Description 09/24/2025 1:00 PM EST Office Visit [facility] Medicine [address] [place] [address] Merle Garces MD [address], [address] [place] [address] [email or web address] Health Maintenance Due Date Last Done [...] topic Medical Devices Not on file Insurance [facility] MEDICARE A BLUE CROSS FEDERAL MEDICARE A [facility] MEDICARE A [facility] MEDICARE A [facility] MEDICARE A [facility] FEDERAL MEDICARE A Care Teams Electrical Products Sales Engineer Relationship Specialty Start Date End Date Pcp, Unknown PCP - General 04/29/25 Additional Source Comments The information contained in this document represents components of the legal health record. It is not the complete legal health record.[facility]
--- OUTSIDE RECORDS SUMMARY | 2025-05-23 14:17 | XMS_ITS | Encounter Summary ---
Author Organization [facility] Address [address] [place] [address] Care Team Providers Care Technical Programs Manager Name Role Phone Unavailable Primary Care Provider Unavailabl e Encounter Details Date Type Department Care Team (Late st Contact Info) Description 05/17/2021 Lab Requisition [facility] Services [place] [address] [place] [address] Tomás Alamo PA [address] [place] [address] Social History Tobacco Use Types Packs/Day Years Used Date Smoking Tobacco: Never Assessed Sex and Gender Information Value Date Recorded Sex Assigned at Not on file Legal Sex Male 1:[address] Gender Identity Not on file Sexual Orientation Not on file documented as of this encounter Plan of Treatment Not on file documented as of this encounter Procedures Procedure Name Priority Date/Time Associated Diagnosis Comments PATHOLOGY Routine 05/17/2021 10:00 AM CDT documented in this encounter Results * PATHOLOGY (05/17/2021 10:00 AM CDT) CASE REPORT Surgical Pathology Report Case: [id number] Authorizing Provider: Tomás Alamo PA Collected: 05/17/2021 10:00 AM Ordering Location: [facility] Received: 05/17/2021 12:52 PM Services [place] Pathologist: Dipak Perera MD Specimens: A) - Forearm, right, LIPOMA HRCN [id number] B) - Shoulder, left, SEBACEOUS CYST 05/18/2021 10:22 AM CDT [facility] FINAL DIAGNOSIS A. Soft tissue, right forearm, excision- Angiolipoma B. Skin, left shoulder, excision- Epidermal inclusion cyst 05/18/2021 10:22 AM [facility] Verified by Dipak Perera MD [...] RSS 1. KM 05/18/2021 10:22 AM [facility] OPERATIVE PROCEDURE A. [id number] B. [id number] 05/18/2021 10:22 AM [facility] CLINICAL INFORMATION No Dx found. 05/18/2021 10:22 AM [facility] COMMENT ADAOK Surgical cases might have been signed out in the following labs: [facility] CLIA#[id number] , [address], [place] [address] [facility], CLIA# [id number], [address] [place] [address] 05/18/2021 10:22 AM [facility] Tissue (Forearm, right) 05/17/2021 10:00 AM CDT 05/17/2021 12:52 PM CDT Tissue specimen (specimen) (Shoulder, left) 05/17/2021 10:22 AM CDT 05/17/2021 12:52 PM CDT Tomás SAN PATHOLOGY/CYTOLOGY ORDERABLES F inal Result [facility] CLIA# [id number] [address] [place] [address] documented in this encounter Visit Diagnoses Not on filedocumented in this encounter
== END 2025-05-23 14:01 | disposition home or self-care (01) ==
LOC: HO.HMCH 12:55
PROVIDERS: PCP Internal Medicine; Visit Provider Internal Medicine
DX: D64.9 Anemia, unspecified (principal); F33.1 Major depressive disorder, recurrent, moderate; I48.0 Paroxysmal atrial fibrillation; K74.69 Other cirrhosis of liver; N17.9 Acute kidney failure, unspecified; J18.1 Lobar pneumonia, unspecified organism; I10 Essential (primary) hypertension; E78.5 Hyperlipidemia, unspecified; Z00.00 Encounter for general adult medical examination without abnormal findings; E55.9 Vitamin D deficiency, unspecified; E13.9 Other specified diabetes mellitus without complications; R53.1 Weakness; I50.9 Heart failure, unspecified; K76.89 Other specified diseases of liver

== ENCOUNTER 2025-05-30 14:18 | Outpatient (AMB) | payer BC, SELFPAY ==
--- OUTSIDE RECORDS SUMMARY | 2025-05-30 14:25 | XMS_ITS | Clinical Summary ---
Author Organization [facility] Address [address] [address] Phone Care Team Providers Care Investigative Writer Name Role Phone Unavailable Primary Care Provider [...] Diagnosed Date Abnormal EKG 05/16/2024 CAD in [place]ct[place] artery 05/16/2024 Type 2 diabetes mellitus without complication Atherosclerosis of coronary artery without angin a pectoris 07/02/2023 Stented coronary artery 07/02/2023 Mixed hyperlipidemia 01/27/2023 Essential hypertension 07/17/2022 Obstructive sleep apnea syndrome 07/17/2022 Paroxysmal atrial fibrillation 07/17/2022 Chronic lung disease 04/06/2022 Moderate mitral regurgitation 04/06/2022 Chest pain 09/23/2020 Myocardial infarction 09/23/2020 Encounters Date Type Department Care Team Description 04/02/2025 Telephone [facility] [address] [place] [phone] Mraian Holland from Last 3 Months Immunizations Immunization [...] age to complete this topic Insurance [facility]
--- OUTSIDE RECORDS SUMMARY | 2025-05-30 14:25 | XMS_ITS | Clinical Summary ---
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
--- OUTSIDE RECORDS SUMMARY | 2025-05-30 14:25 | XMS_ITS | Encounter Summary ---
Author Organization [facility] Address [address] [place] [address] Care Team Providers Care Supervisor Communications And Signals Name Role Phone Unavailable Primary Care Provider Unavailabl e Encounter Details Date Type Department Care Team (Late st Contact Info) Description 05/17/2021 Lab Requisition [facility] [place] [address] 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 Gender Identity Not on file Sexual Orientation Not on file documented as of this encounter Plan of Treatment Not on file documented as of this encounter Procedures Procedure Name Priority Date/Time Associated Diagnosis Comments PATHOLOGY Routine 05/17/2021 10:00 AM CDT documented in this encounter Results * PATHOLOGY (05/17/2021 10:00 AM CDT) CASE REPORT Surgical Pathology Report Case: [id number] Authorizing Provider: Tomás Alamo PA Collected: 05/17/2021 10:00 AM Ordering Location: [facility] Received: 05/17/2021 12:52 PM Services [place] Pathologist: Dipak Perera MD Specimens: A) - Forearm, right, LIPOMA HRCN [id number] B) - Shoulder, left, SEBACEOUS CYST 05/18/2021 10:22 AM [facility] FINAL DIAGNOSIS A. Soft tissue, right forearm, excision- Angiolipoma B. Skin, left shoulder, excision- Epidermal inclusion cyst 05/18/2021 10:22 AM [facility] Verified by Dipak Perera MD [...] material. RSS 1. KM 05/18/2021 10:22 AM [facility] OPERATIVE PROCEDURE A. [id number] B. [id number] 05/18/2021 10:22 AM [facility] CLINICAL INFORMATION No Dx found. 05/18/2021 10:22 AM [facility] COMMENT ADAOK Surgical cases might have been signed out in the following labs: [facility], CLIA#[id number] , [address], [place] [address] [facility], CLIA# [id number], [address] [place] [address] 05/18/2021 10:22 AM [facility] Tissue (Forearm, right) 05/17/2021 10:00 AM CDT 05/17/2021 12:52 PM CDT Tissue specimen (specimen) (Shoulder, left) 05/17/2021 10:22 AM CDT 05/17/2021 12:52 PM CDT Tomás Alamo PA-C PATHOLOGY/CYTOLOGY ORDERABLES Final Result [facility] CLIA# [id number] [address] [place] [address] documented in this encounter Visit Diagnoses Not on filedocumented in this encounter
--- OUTSIDE RECORDS SUMMARY | 2025-05-30 14:25 | XMS_ITS | Clinical Summary ---
Author Organization [facility] Address [address] [place] [address] Phone Care Team Providers Care Sharepoint Application Developer Name Role Phone Pcp, Unknown Primary Care [...] Description 09/24/2025 1:00 PM EST Office Visit [facility] Medicine [address] [place] [address] Merle Garces MD [address], [address] [place] [address] [email or web address] Due Date Last [...] topic Medical Devices Not on file Insurance [facility] MEDICARE A BLUE CROSS FEDER[employer] MEDICARE A [facility] MEDICARE A [facility] MEDICARE A [facility] MEDICARE A [facility] FEDERAL MEDICARE A Care Teams Sharepoint Application Developer Relationship Specialty Start Date End Date Pcp, Unknown PCP - General 04/29/25 Additional Source Comments The information contained in this document represents components of the legal health record. It is not the complete legal health record.[facility]
[2025-05-30 14:27] VITALS: BP 142/86; PULSE 62; TEMP 36.3; O2SAT 98; BMI 30.2
--- NOTE | 2025-05-30 14:27 | MHC.PC.OV ---
Vital Signs 05/30/25 14:27 Height 6 ft 1 in Weight 229 lb BMI 30.2 BP 142/86 H Blood Pressure Location Lt brachial Position Sitting Pulse 62 Pulse Source Pulse Oximeter Temp 97.3 F Temp Source Temporal Artery Scan Pulse Oximetry (%) 98 Oxygen Delivery Method Room Air Intake Visit Reasons: b/l weakness/ SOB Accompanied by: daughter in law Allergies erythromycin base Adverse Reaction (Verified 05/30/25 15:04) Unknown lisinopril Adverse Reaction (Verified 05/30/25 15:04) Unknown Penicillins Adverse Reaction (Verified 05/30/25 15:04) Unknown Tobacco use date assessed: 05/30/25 Fall risk assessment: No Falls in past year Last assessed Fall Risk: 05/30/25 Dental Screening Dental Screen Date: 05/23/25 Did you have a dental visit in the last 12 months?: Yes Did you have a dental problem in the last 6 months where you did not have access to dental care?: No Was dental information given to patient?: Patient has dentist HPI HPI Comments History of Present Illness Details The patient is a 75-year-old male presenting with abdominal pain and associated symptoms. The abdominal pain started last night and was rated as 8/10 in severity. The pain worsens when bending over and improves when lying flat. The patient reports significant fatigue, impacting his ability to perform daily activities such as showering. He requires assistance to stand up from the bathtub, indicating a decline in functional status. The patient experiences dyspnea and is unable to walk long distances, suggesting a possible exacerbation of his atrial fibrillation. He was hospitalized a week ago, during which a liter of fluid was removed from his abdomen, and tests showed no infection. The patient has a history of cirrhosis, although there is uncertainty regarding the diagnosis due to conflicting imaging results. He has been referred to a liver specialist for further evaluation and management. The patient was seen in our clinic one week ago after his most recent hospitalization. There was a confusion regarding the diagnosis of cirrhosis. The patient looks more sick today with jaundice, worsening ascites, shortness of breath and generalized weakness. [facility] Medical History Hypertension Constipation Gallstone Depression Visual hallucination Myocardial infarct CAD (coronary artery disease) History of cardioversion Diabetes 1.5, managed as type 2 BPH (benign prostatic hyperplasia) Shock liver VERONICA (nonalcoholic steatohepatitis) History of alcohol abuse Essential hypertension A-fib Mass, brain Sarcoidosis GERD (gastroesophageal reflux disease) Hyperlipidemia Type 2 diabetes mellitus CHF (congestive heart failure) Surgical History H/O heart artery stent Social History Household Members: None Housing: Apartment Do you presently have visiting nurse or other home services: No Comment: refuse camera in room Patient Tobacco Use Status: Never used Tobacco Tobacco use type: Cigarette e-Cigarette/Vaping Use: Never Used Second Hand Smoke Exposure: No service: Yes Current occupational status: retired Cognitive needs: No Hearing needs: Yes Vision needs: Yes Questionnaire PHQ-9 Over the last 2 weeks, how often have you been bothered by any of the following problems? 1. Little interest or pleasure in doing things: not at all 2. Feeling down, depressed, or hopeless: not at all 3. Trouble falling or staying asleep, or sleeping too much: not at all 4. Feeling tired or having little energy: nearly every day 5. Poor appetite or overeating: nearly every day 6. Feeling bad about yourself - or that you are a failure or have let yourself or your family down: not at all 7. Trouble concentrating on things, such as reading the newspaper or watching television: not at all 8. Moving or speaking so slowly that other people could have noticed. Or the opposite - being so fidgety or restless that you have been moving around a lot more than usual: nearly every day 9. Thoughts that you would be better off or of hurting yourself in some way: not at all Total score: 9 Source: Developed by Drs. Teo Gomez, Megan Martins, Perry Farias and colleagues, with an educational benito from [employer]. Thrive Questionnaire Date Thrive assessed: 05/23/25 I am a: Patient What is your living situation today?: I have a steady place to live Within the past 12 months, did the food you bought not last and you didn't have the money to get more?: Never true Within the past 12 months, did you worry whether your food would run out before you got money to buy more?: Never true Do you have trouble paying for medicines?: No Do you have trouble getting transportation to medical appointments?: No Do you have trouble paying your heating and electricity bill?: No Do you have trouble taking care of your child, family member or friend?: No Do you have trouble with day-to-day activities such as bathing, preparing meals, shopping, managing finances, etc.?: No Are you currently unemployed and looking for a job?: No Are you interested in more education?: No Please select the resources that you would like help with: None Currently or been in a relationship where the following occur: No concerns reported THRIVE Score: 0 AUDIT C Alcohol Use Questionnaire (AUDIT-C) 1. How often do you have a drink containing alcohol?: Monthly or less 2. How many drinks containing alcohol do you have on a typical day when you are drinking?: 1 or 2 3. How often do you have six or more drinks on one occasion?: Never Total Score: 1 ALO-7 AMB Questionnaire ALO-7 Date ALO - 7 assessed: 05/30/25 Feeling nervous, anxious, or on edge: 0 = Not at all Not being able to stop or control worryin = Not at all Worrying too much about different things: 0 = Not at all Trouble relaxin = Not at all Being so restless that it is hard to sit still: 0 = Not at all Becoming easily annoyed or irritable: 0 = Not at all Feeling afraid as if something awful might happen: 0 = Not at all Total ALO-7 score (0-4 normal; 5-9 mild; 10-14 moderate; 15-21 severe): 0 Source: Developed by Drs. Teo Gomez, Megan Martins, Perry Farias and colleagues, with an educational benito from [employer]. Review of Systems Const Details: Positives besides what was mentioned in HPI are in BOLD Constitutional: No Weight Change, No Fever, No Chills, No Night Sweats, No Fatigue, No Malaise ENT/Mouth: No Hearing Changes, No Ear Pain, No Nasal Congestion, No Sinus Pain, No Hoarseness, No sore throat, No Rhinorrhea, No Swallowing Difficulty Eyes: No Eye Pain, No Swelling, No Redness, No Foreign Body, No Discharge, No Vision Changes Cardiovascular: No Chest Pain, No SOB, No PND, No Dyspnea on Exertion, No Orthopnea, No Claudication, No Edema, No Palpitations Respiratory: No Cough, No Sputum, No Wheezing, No Smoke Exposure, No Dyspnea Gastrointestinal: No Nausea, No Vomiting, No Diarrhea, No Constipation, No Pain, No Heartburn, No Anorexia, No Dysphagia, No Hematochezia, No Melena, No Flatulence, No Jaundice Genitourinary: No Dysmenorrhea, No DUB, No Dyspareunia, No Dysuria, No Urinary Frequency, No Hematuria, No Urinary Incontinence, No Urgency, No Flank Pain, No Urinary Flow Changes, No Hesitancy Musculoskeletal: No Arthralgias, No Myalgias, No Joint Swelling, No Joint Stiffness, No Back Pain, No Neck Pain, No Injury History Skin: No Skin Lesions, No Pruritis, No Hair Changes, No Breast/Skin Changes, No Nipple Discharge Neuro: No Weakness, No Numbness, No Paresthesias, No Loss of Consciousness, No Syncope, No Dizziness, No Headache, No Coordination Changes, No Recent Falls Psych: No Anxiety/Panic, No Depression, No Insomnia, No Personality Changes, No Delusions, No Rumination, No SI/HI/AH/VH, No Social Issues, No Memory Changes, No Violence/Abuse Hx., No Eating Concerns Heme/Lymph: No Bruising, No Bleeding, No Transfusions History, No Lymphadenopathy Endocrine: No Polyuria, No Polydipsia, No Temperature Intolerance Physical exam (Primary Care) Vital Signs: Last Vital Signs Temp 97.3 F 05/30/25 14:27 Pulse 62 05/30/25 14:27 BP 142/86 H 05/30/25 14:27 Pulse Ox 98 05/30/25 14:27 Oxygen Delivery Method Room Air 05/30/25 14:27 BMI result Body Mass Index 30.2 Tobacco/Smoking Status: Tobacco use Status Tobacco use date assessed 05/30/25 05/30/25 15:06 Patient Tobacco Use Status Never used Tobacco 05/30/25 14:27 Tobacco use type Cigarette 05/30/25 15:06 e-Cigarette/Vaping Use Never Used 05/30/25 15:06 PHQ-9: PHQ-9 Score PHQ-9: Total score 9 05/30/25 15:37 Thrive Assessment: Date of Thrive Assessment Date Thrive assessed 05/23/25 05/30/25 14:27 Currently or been in a relationship where the following occur: No concerns reported Const Other: Pertinent findings are in BOLD GENERAL APPEARANCE Ill looking, in distress, activity normal for age, well developed/ well nourished, no cyanosis, pallor, or diaphoresis. EYES lids/conjunctiva normal. EARS/NOSE/THROAT Mucous membranes moist, nares normal, lips/teeth normal uvula midline without oral pharyngeal erythema, exudate or swelling TMs normal bilaterally. No lymphangitis/lymphedema. HEAD/NECK normocephalic atraumatic, no facial trauma, neck is supple. RESPIRATORY SOB, speaks in full sentences, no tripod position, no accessory muscle use. Lungs clear to auscultation without rhonchi, wheezes, rales CARDIAC Irregular rate and rhythm, no edema. ABDOMINAL Soft, ND/NT. Distended, fluid wave, No pulsatile masses on exam, rebound tenderness, Mccrary sign or pain over Mcburney's point. MUSCLES/EXTREMITIES No abnormal range of motion, no swelling. SKIN Warm, pink and dry. No rashes, dermatoses, petechiae or lesions. Jaundiced. NEUROLOGICAL Speech is clear and appropriate. Normal level of consciousness. Gait and coordination are normal. 5/5 strength in all extremities. PSYCH Normal mood and affect. Judgement/competence is appropriate Coding Level of Care Code Est Pt Level 5 (18775) Diagnoses Abdominal pain R10.9 A-fib I48.0 Atrial fibrillation type: paroxysmal Dyspnea R06.00 Time Spent (min) 30 Comment High complexity medical decision. Assessment & Plan Assessment & Plan (1) Abdominal pain: Code(s): R10.9 - Unspecified abdominal pain Category: Medical Plan: - Plan to evaluate abdominal pain includes hospital admission for further testing and management. - Consideration for fluid removal and testing for infection. - Advised patient to go to [facility] as they have a liver specialist. - They can also expedite his cardioversion. (2) A-fib: Code(s): I48.91 - Unspecified atrial fibrillation Category: Medical Qualifiers: Atrial fibrillation type: paroxysmal Qualified Code(s): I48.0 - Paroxysmal atrial fibrillation Plan: - Atrial fibrillation management includes monitoring and potential ablation at the end of the month. - Since patient is going to [facility], they can expedite his ablation that was already scheduled the end of this month. (3) Dyspnea: Code(s): R06.00 - Dyspnea, unspecified Category: Medical Plan: - Dyspnea management includes monitoring in a hospital setting. [facility]. Plan I discussed with the patient the need for hospital admission to manage his abdominal pain and dyspnea, and to monitor his atrial fibrillation. We talked about the importance of seeing a liver specialist to evaluate his cirrhosis and hepatitis. I recommended considering transfer to a facility with specialized liver services for comprehensive care. Patient is ill looking.
== END 2025-05-30 15:52 | disposition home or self-care (01) ==
LOC: HO.HMCH 14:19
PROVIDERS: PCP Internal Medicine; Visit Provider Internal Medicine
DX: R10.9 Unspecified abdominal pain (principal); I48.0 Paroxysmal atrial fibrillation; R06.00 Dyspnea, unspecified

== ENCOUNTER 2025-06-06 15:25 | Outpatient (REF) | payer BC, SELFPAY ==
--- NOTE | ~2025-06-06 | XR_ITS ---
EXAMINATION: XR CHEST 2 VIEWS HISTORY: I50.21 - Acute systolic (congestive) heart failure COMPARISON: Comparison is made with the prior examination dated 05/14/2025. FINDINGS: PA and lateral views of the chest are submitted. There is a persistent nodular opacity in the right upper lobe. The left lung is clear. There is a probable tiny right pleural effusion. There is no pneumothorax or pulmonary vascular congestion. The heart is normal in size. There is mild degenerative disc disease of the spine. XR/XR chest 2V IMPRESSION: Persistent nodular opacity in the right upper lobe. Follow-up chest CT is recommended. Findings were sent to Dr. Catarino Boyle by secure text message on 06/10/2025 at 7:43 AM. Electronically signed by: Teo Dominguez MD 06/10/2025 07:44 AM EDT
== END 2025-06-06 15:26 | disposition home or self-care (01) ==
LOC: HO.XRAY 15:25
PROVIDERS: PCP Internal Medicine; Visit Provider Internal Medicine
DX: I50.21 Acute systolic (congestive) heart failure (principal)
CPT/HCPCS: 71046

== ENCOUNTER 2025-06-06 15:25 | Outpatient (AMB) | payer BC, SELFPAY ==
[2025-06-06 15:43] VITALS: BP 122/62; PULSE 95; RESP 18; TEMP 36; O2SAT 96
--- NOTE | 2025-06-06 15:43 | A.OFFPC_ITS ---
Vital Signs 06/06/25 15:43 Height 6 ft 1 in Weight 227 lb 8 oz BMI 30.0 BP 122/62 Blood Pressure Location Lt brachial Position Sitting Respiration 18 Pulse 95 Pulse Source Pulse Oximeter Temp 96.8 F Temp Source Temporal Artery Scan Pulse Oximetry (%) 96 Oxygen Delivery Method Room Air Intake Visit Reasons: 1 week f/u Dragline Operator Required: No Accompanied by: Self / Same As Patient Allergies erythromycin base Adverse Reaction (Verified 05/30/25 15:04) Unknown lisinopril Adverse Reaction (Verified 05/30/25 15:04) Unknown Penicillins Adverse Reaction (Verified 05/30/25 15:04) Unknown Tobacco use date assessed: 06/06/25 Fall risk assessment: 2 + Falls in past year Last assessed Fall Risk: 06/06/25 Dental Screening Dental Screen Date: 05/23/25 Did you have a dental visit in the last 12 months?: Yes Did you have a dental problem in the last 6 months where you did not have access to dental care?: No Was dental information given to patient?: Patient has dentist HPI HPI Comments History of Present Illness Details The patient is a 75-year-old male presenting with heart failure management. He reports feeling bloated with gas, lacking energy, and experiencing a loss of appetite for several months. He has difficulty standing up from a seated position without assistance due to weakness. The patient has a history of atrial fibrillation and is scheduled for an ablation at the end of the month. He has been experiencing fluid retention, primarily in the abdomen, and has been hospitalized multiple times for fluid drainage. His ejection fraction was noted to be 48%, which is not as severe as expected given his symptoms. The patient has been on furosemide and spironolactone to manage fluid retention, with plans to increase the dosage gradually. He has not been on oxygen therapy but has an oxygen machine available at home. His sodium levels were noted to be low, prompting continued monitoring. There was a question regarding potential cirrhosis which was ruled out during recent hospitalizaiton and his ascites was atributed to HF exacerbation. [facility] Medical History Hypertension Constipation Gallstone Depression Visual hallucination Myocardial infarct CAD (coronary artery disease) History of cardioversion Diabetes 1.5, managed as type 2 BPH (benign prostatic hyperplasia) Shock liver VERONICA (nonalcoholic steatohepatitis) History of alcohol abuse Essential hypertension A-fib Mass, brain Sarcoidosis GERD (gastroesophageal reflux disease) Hyperlipidemia Type 2 diabetes mellitus CHF (congestive heart failure) Surgical History H/O heart artery stent Social History Household Members: None Housing: Apartment Do you presently have visiting nurse or other home services: No Comment: refuse camera in room Patient Tobacco Use Status: Never used Tobacco Tobacco use type: Cigarette e-Cigarette/Vaping Use: Never Used Second Hand Smoke Exposure: No service: Yes Current occupational status: retired Cognitive needs: No Hearing needs: Yes Vision needs: Yes Questionnaire Thrive Questionnaire Date Thrive assessed: 05/23/25 I am a: Patient What is your living situation today?: I have a steady place to live Within the past 12 months, did the food you bought not last and you didn't have the money to get more?: Never true Within the past 12 months, did you worry whether your food would run out before you got money to buy more?: Never true Do you have trouble paying for medicines?: No Do you have trouble getting transportation to medical appointments?: No Do you have trouble paying your heating and electricity bill?: No Do you have trouble taking care of your child, family member or friend?: No Do you have trouble with day-to-day activities such as bathing, preparing meals, shopping, managing finances, etc.?: No Are you currently unemployed and looking for a job?: No Are you interested in more education?: No Please select the resources that you would like help with: None Currently or been in a relationship where the following occur: No concerns reported THRIVE Score: 0 ALO-7 AMB Questionnaire ALO-7 Date ALO - 7 assessed: 05/30/25 Source: Developed by Drs. Teo Gomez, Megan Martins, Perry Farias and colleagues, with an educational benito from [employer]. Review of Systems Const Details: Positives besides what was mentioned in HPI are in BOLD Constitutional: No Weight Change, No Fever, No Chills, No Night Sweats, No Fatigue, No Malaise ENT/Mouth: No Hearing Changes, No Ear Pain, No Nasal Congestion, No Sinus Pain, No Hoarseness, No sore throat, No Rhinorrhea, No Swallowing Difficulty Eyes: No Eye Pain, No Swelling, No Redness, No Foreign Body, No Discharge, No Vision Changes Cardiovascular: No Chest Pain, No SOB, No PND, No Dyspnea on Exertion, No Orthopnea, No Claudication, No Edema, No Palpitations Respiratory: No Cough, No Sputum, No Wheezing, No Smoke Exposure, No Dyspnea Gastrointestinal: No Nausea, No Vomiting, No Diarrhea, No Constipation, No Pain, No Heartburn, No Anorexia, No Dysphagia, No Hematochezia, No Melena, No Flatulence, No Jaundice Genitourinary: No Dysmenorrhea, No DUB, No Dyspareunia, No Dysuria, No Urinary Frequency, No Hematuria, No Urinary Incontinence, No Urgency, No Flank Pain, No Urinary Flow Changes, No Hesitancy Musculoskeletal: No Arthralgias, No Myalgias, No Joint Swelling, No Joint Stiffness, No Back Pain, No Neck Pain, No Injury History Skin: No Skin Lesions, No Pruritis, No Hair Changes, No Breast/Skin Changes, No Nipple Discharge Neuro: No Weakness, No Numbness, No Paresthesias, No Loss of Consciousness, No Syncope, No Dizziness, No Headache, No Coordination Changes, No Recent Falls Psych: No Anxiety/Panic, No Depression, No Insomnia, No Personality Changes, No Delusions, No Rumination, No SI/HI/AH/VH, No Social Issues, No Memory Changes, No Violence/Abuse Hx., No Eating Concerns Heme/Lymph: No Bruising, No Bleeding, No Transfusions History, No Lymphadenopathy Endocrine: No Polyuria, No Polydipsia, No Temperature Intolerance Physical exam (Primary Care) Vital Signs: Last Vital Signs Temp 96.8 F 06/06/25 15:43 Pulse 95 06/06/25 15:43 Resp 18 06/06/25 15:43 BP 122/62 06/06/25 15:43 Pulse Ox 96 06/06/25 15:43 Oxygen Delivery Method Room Air 06/06/25 15:43 BMI result Body Mass Index 30.0 Tobacco/Smoking Status: Tobacco use Status Tobacco use date assessed 06/06/25 06/06/25 15:52 Patient Tobacco Use Status Never used Tobacco 06/06/25 15:45 Tobacco use type Cigarette 10/10/25 15:45 e-Cigarette/Vaping Use Never Used 06/06/25 15:45 Thrive Assessment: Date of Thrive Assessment Date Thrive assessed 05/23/25 06/06/25 15:45 Currently or been in a relationship where the following occur: No concerns reported Const Other: Pertinent findings are in BOLD GENERAL APPEARANCE NAD, activity normal for age, well developed/ well nourished, no cyanosis, pallor, or diaphoresis. EYES lids/conjunctiva normal. EARS/NOSE/THROAT Mucous membranes moist, nares normal, lips/teeth normal uvula midline without oral pharyngeal erythema, exu date or swelling TMs normal bilaterally. No lymphangitis/lymphedema. HEAD/NECK normocephalic atraumatic, no facial trauma, neck is supple. RESPIRATORY respiratory effort normal, speaks in full sentences, no tripod position, no accessory muscle use. Lungs clear to auscultation without rhonchi, wheezes, rales CARDIAC Regular rate and rhythm, no edema. ABDOMINAL Soft, ND/NT. fluid wave present. No pulsatile masses on exam, rebound tenderness, Mccrary sign or pain over Mcburney's point. MUSCLES/EXTREMITIES No abnormal range of motion, no swelling. Generalized Weakness. SKIN Warm, pink and dry. No rashes, dermatoses, petechiae or lesions. Jaundiced. NEUROLOGICAL Speech is clear and appropriate. Normal level of consciousness. Gait and coordination are normal. 5/5 strength in all extremities. PSYCH Normal mood and affect. Judgement/competence is appropriate Coding Level of Care Code Tele Est Pt Level 3 (77155) Diagnoses Heart failure, unspecified HF chronicity, unspecified heart failure type I50.9 Heart failure chronicity: unspecified Heart failure type: unspecified Time Spent (min) 20 Assessment & Plan Assessment & Plan (1) Heart failure: Code(s): I50.9 - Heart failure, unspecified Category: Medical Qualifiers: Heart failure chronicity: unspecified Heart failure type: unspecified Qualified Code(s): I50.9 - Heart failure, unspecified Plan: - Plan to increase furosemide and spironolactone dosages to manage fluid retention. - Scheduled ablation for atrial fibrillation at the end of the month. - Monitor sodium levels due to noted hyponatremia. Plan I discussed with the patient the management of heart failure and atrial fibrillation, including the plan to increase diuretic dosages and the scheduled ablation procedure. We reviewed the importance of monitoring sodium levels and the potential need for further interventions if symptoms persist. Orders: Orders Comprehensive Met. Panel Today I50.9 - Heart failure, unspecified XR chest 2V Today I50.21 - Acute systolic (congestive) heart failure Medications: Changed From furosemide (Lasix) 20 mg PO DAILY 30 tabs 3RF To furosemide (Lasix) 40 mg (2 x 20 mg) PO DAILY 30 tabs 3RF From spironolactone 25 mg PO DAILY 30 days 30 tabs 0RF To spironolactone 100 mg (4 x 25 mg) PO DAILY 120 tabs 0RF 30 days
== END 2025-06-06 16:23 | disposition home or self-care (01) ==
LOC: HO.HMCH 15:26
PROVIDERS: PCP Internal Medicine; Visit Provider Internal Medicine
DX: I50.9 Heart failure, unspecified (principal)

== ENCOUNTER → 2025-06-06 16:38 | Outpatient (BNV) | payer BC, SELFPAY | PROVIDERS: PCP Internal Medicine; Visit Provider Radiology Diagnostic Radiology | DX: R91.8 Other nonspecific abnormal finding of lung field (principal) | CPT/HCPCS: 71046 ==

== ENCOUNTER 2025-06-11 13:34 | Outpatient (AMB) | payer BC, SELFPAY ==
--- OUTSIDE RECORDS SUMMARY | 2006-09-29 06:33 | XMS_ITS | Continuity of Care Document ---
Author Organization [facility] Address [address] [address] [place] [address] Phone Care Team Providers Care Waterproofing Mixer Name Role Phone Shaun FONSECA, Jaylen Unavailable Unavailable Allergies, Adverse Reactions, Alerts Substance Reaction Status Criticality erythromycin base Active No Informa tion ethyl alcohol Active No Information PENICILLIN G POTASSIUM Active No In formation Medications Medication Instructions Dosage Effective Dates (start - stop) Status Comments HYDRODIURIL (unknown strength) Not Available - Active ACIPHEX (unknown strength) Not Available - Active BUPROPION HCL (unknown strength) Not Available - Active EFFEXOR (unknown strength) Not Available - Active LIPITOR (unknown strength) Not Available - Active PROVIGIL (unknown strength) Not Available - Active AVAPRO (unknown strength) Not Available - Active METOCLOPRAMIDE HCL (unknown strength) Not Available - Active Advance Directives Directive Yes / No Effective Date File Name Resuscitation Not Answered N/A N/A Life Support Not Answered N/A N/A Intubation Not Answered N/A N/A Antibiotics Not Answered N/A N/A IV Fluid Support Not Answered N/A N/A Tube Feed Not Answered N/A N/A Other Directive N/A N/A WARNING:The information contained in this section is historical and is provided for information only and does not constitute a legal document or any assurance that the information is still accurate. Please verify the information with the carvajal of the legal document before using it for clinical purposes. Encounters Encounter Description Practice Location Reason(s) For Visit Diagnoses Date Provider Providers Copied on Encounter Eye [facility], [address] [address], [place], [place], [id number], tel:[phone] [facility] Patient dislikes glasses (chief complaint) No Information Shaun York. [address], [place], [id number], [place]. tel:[phone] Family History Family Member Type Diagnosis Age At Onset Problem (finding) Family history of HBP Payers Payer name Insurance type Covered libertarian ID Authoriza tion(s) No Information Social History Type Description Quantity Date Captured Comments Alcohol Use Details 4 drinks Caffeine Use Details soda 2 cups/cans per day Tobacco Use Status No Information Smoking Status No Information Non-Smoking Tobacco Use Details : No Details Available : No Details Available Sex Male Chief Complaint And Reason For Visit From encounter dated '09/29/2006 10:33'. 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 Will continue to observe. HX: Optic Neuritis OS - Do not r ecommend Lasik OU. Assessments Type Assessment Date No Information Patient Care Teams Name Effective Dates (start - stop) Status Members No Information
--- NOTE | 2025-06-11 13:41 | HO.NEPHOV ---
Vital Signs 06/11/25 13:50 Height 6 ft 1 in Weight 220 lb 4 oz BMI 29.1 BP 122/82 Blood Pressure Location Rt brachial Position Sitting Pulse 49 L Pulse Source Pulse Oximeter Pulse Oximetry (%) 100 Oxygen Delivery Method Room Air Intake [place] Re[place] [facility] [place]U-Conf Business Analysis Consultant Required: No Accompanied by: Son Allergies erythromycin base Adverse Reaction (Verified 06/11/25 13:49) Unknown lisinopril Adverse Reaction (Verified 06/11/25 13:49) Unknown Penicillins Adverse Reaction (Verified 06/11/25 13:49) Unknown HPI Comments Details: I had the privilege of seeing Stone in follow up of his LY. He recently had LY likely from hepatorenal syndrome during his [facility] [place] which has been resolved. He had another hospitalization in [facility] after D[place]C [place] [facility]. Patient and son told me that liver cirrhosis has been ruled out. His serum creatinine has been close to baseline. He does not weigh himself daily and does not maintain a very strict fluid restriction. He has not had any recent paracentesis. His diuretic mendoza has been adjusted and is currently on lasix as well as Spironolactone 100 mg daily. He has H/O DM, HTN, sarcoidosis as well as CAD. He is going for Ablation in 2 weeks [facility] Medical History Hypertension Constipation Gallstone Depression Visual hallucination Myocardial infarct CAD (coronary artery disease) History of cardioversion Diabetes 1.5, managed as type 2 BPH (benign prostatic hyperplasia) Shock liver VERONICA (nonalcoholic steatohepatitis) History of alcohol abuse Essential hypertension A-fib Mass, brain Sarcoidosis GERD (gastroesophageal reflux disease) Hyperlipidemia Type 2 diabetes mellitus CHF (congestive heart failure) Surgical History H/O heart artery stent Social History Household Members: None Housing: Apartment Do you presently have visiting nurse or other home services: No Comment: refuse camera in room Patient Tobacco Use Status: Never used Tobacco Tobacco use type: Cigarette e-Cigarette/Vaping Use: Never Used Second Hand Smoke Exposure: No service: Yes Current occupational status: retired Cognitive needs: No Hearing needs: Yes Vision needs: Yes Review of Systems Const All systems reviewed & are unremarkable except as noted in HPI and below Physical Exam Vital Signs: Last Vital Signs Pulse 49 L 06/11/25 13:50 BP 122/82 06/11/25 13:50 Pulse Ox 100 06/11/25 13:50 Oxygen Delivery Method Room Air 06/11/25 13:50 BMI result Body Mass Index 29.1 Const General: comfortable and no acute distress Orientation/consciousness: patient oriented x3 HEENT Head: Yes normocephalic Mouth: Normal oral and palatal mucosa present Eyes EOM: EOMs intact bilaterally Neck Neck: Yes supple Resp Auscultation: clear to auscultation bilaterally Cardio Jugular venous distension: no JVD Rate: regular rate GI Palpation (GI): Soft to palpation Auscultation: normal bowel sounds General: Yes no CVA tenderness Back/Spine/Pelvis Back: no CVA tenderness Skin General skin exam: no rashes or lesions noted Neuro General: patient oriented x3 and moves all extremities Assessment & Plan Assessment & Plan (1) Hypertension: Code(s): I10 - Essential (primary) hypertension Category: Medical Qualifiers: Hypertension type: primary hypertension Qualified Code(s): I10 - Essential (primary) hypertension (2) RVF (right ventricular failure): Code(s): I50.810 - Right heart failure, unspecified Category: Medical (3) CKD stage 3a, GFR 45-59 ml/min: Code(s): N18.31 - Chronic kidney disease, stage 3a Category: Medical (4) Hepatorenal syndrome: Code(s): K76.7 - Hepatorenal syndrome Category: Medical Plan Had LY likely from hepatorenal syndrome( resolved) UA was bland;CT without evidence of hydronephrosis or stones urine sodium was <20. Volume status stable C/W current dose of loop diuretic & Spironolactone 2 Gram Na / Fluid restriction & Daily weights Going for Ablation in 2 weeks; May have to back off on ARB if cr rises F/U labs ordered and answered all questions Orders: Orders Electrolytes 6 Weeks N18.31 - Chronic kidney disease, stage 3a Creatinine 6 Weeks N18.31 - Chronic kidney disease, stage 3a Blood Urea Nitrogen 6 Weeks N18.31 - Chronic kidney disease, stage 3a Medications: Resumed amiodarone 200 mg PO BID Coding Level of Care Code Est Pt Level 4 (25698) Diagnoses Primary hypertension I10 Hypertension type: primary hypertension RVF (right ventricular failure) I50.810 CKD stage 3a, GFR 45-59 ml/min N18.31 Hepatorenal syndrome K76.7
[2025-06-11 13:50] VITALS: BP 122/82; PULSE 49; O2SAT 100; BMI 29.1
--- OUTSIDE RECORDS SUMMARY | 2025-06-11 17:22 | XMS_ITS | Encounter Summary ---
Author Organization [facility] Address [address] [place] [address] Care Team Providers Care Market Reporter Name Role Phone Unavailable Primary Care Provider Unavailabl e Encounter Details Date Type Department Care Team (Late st Contact Info) Description 05/17/2021 Lab Requisition [facility] Services [place] [address] 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 Gender Identity Not on file Sexual Orientation Not on file documented as of this encounter Plan of Treatment Not on file documented as of this encounter Procedures Procedure Name Priority Date/Time Associated Diagnosis Comments PATHOLOGY Routine 05/17/2021 10:00 AM CDT documented in this encounter Results * PATHOLOGY (05/17/2021 10:00 AM CDT) CASE REPORT Surgical Pathology Report Case: [id number] Authorizing Provider: Tomás Alamo PA Collected: 05/17/2021 10:00 AM Ordering Location: [facility] Received: 05/17/2021 12:52 PM Services [place] Pathologist: Dipak Perera MD Specimens: A) - Forearm, right, LIPOMA HRCN [id number] B) - Shoulder, left, SEBACEOUS CYST 05/18/2021 10:22 AM [facility] FINAL DIAGNOSIS A. Soft tissue, right forearm, excision- Angiolipoma B. Skin, left shoulder, excision- Epidermal inclusion cyst 05/18/2021 10:22 AM [facility] Verified by Dipak Perera MD [...] material. RSS 1. KM 05/18/2021 10:22 AM [facility] OPERATIVE PROCEDURE A. [id number] B. [id number] 05/18/2021 10:22 AM [facility] CLINICAL INFORMATION No Dx found. 05/18/2021 10:22 AM [facility] COMMENT [facility] Surgical cases might have been signed out in the following labs: [facility] CLIA#[id number] , [address], [place] [address] [facility], CLIA# [id number], [address] [place] [address] 05/18/2021 10:22 AM [facility] Tissue (Forearm, right) 05/17/2021 10:00 AM CDT 05/17/2021 12:52 PM CDT Tissue specimen (specimen) (Shoulder, left) 05/17/2021 10:22 AM CDT 05/17/2021 12:52 PM CDT Tomás Alamo PA-C PATHOLOGY/CYTOLOGY ORDERABLES Final Result [facility] CLIA# [id number] [address] [place] [address] documented in this encounter Visit Diagnoses Not on filedocumented in this encounter
--- OUTSIDE RECORDS SUMMARY | 2025-06-11 17:22 | XMS_ITS | Clinical Summary ---
Author Organization [facility] Address [address], [place] [address] Phone Care Team Providers Care Review Assistant Name Role Phone Unavailable Primary Care [...] Diagnosed Date Abnormal EKG 05/16/2024 CAD in [place] artery 05/16/2024 Type 2 diabetes mellitus without complication Atherosclerosis of coronary artery without angin a pectoris 07/02/2023 Stented coronary artery 07/02/2023 Mixed hyperlipidemia 01/27/2023 Essential hypertension 07/17/2022 Obstructive sleep apnea syndrome 07/17/2022 Paroxysmal atrial fibrillation 07/17/2022 Chronic lung disease 04/06/2022 Moderate mitral regurgitation 04/06/2022 Chest pain 09/23/2020 Myocardial infarction 09/23/2020 Encounters Date Type Department Care Team Description 04/02/2025 Telephone [facility] [address] [facility] [place] [phone] Marian Holland from Last 3 Months Immunizations [...] 2, 05/28/2021 Yearly Depression Screening 05/16/2025 05/16/2024 Colorectal Cancer Screening Discontinued FIT-DNA Discontinued [address] Colonography Discontinued Colonoscopy Discontinued FIT Discontinued FOBT Discontinued HPV Vaccines Aged Out No longer eligi ble based on patient's age to complete this topic Hepatitis B Vaccines Aged Out No long er eligible based on patient's age to complete this topic RSV Vaccine Pediatric Aged Out No oscar tabitha eligible based on patient's age to complete this topic Sigmoidoscopy Discontinued Insurance [facility]
--- OUTSIDE RECORDS SUMMARY | 2025-06-11 17:22 | XMS_ITS | Clinical Summary ---
Author Organization [facility] Address [address] [place] [address] Phone Care Team Providers Care Continuous Process Coffee Roaster Name Role Phone Pcp, Unknown Primary Care [...] Description 09/24/2025 1:00 PM EST Office Visit [facility] [address] [place] [address] Merle Garces MD [address], [address] [place] [address] [email or web address] Health Maintenance Due Date Last [...] VACCINE (#1) 2025 COVID-19 VACCINE (1 - 2024-2 6 season) 2025 HEPATITIS A VACCINES Aged Out [...] topic Medical Devices Not on file Insurance [facility] MEDICARE A BLUE CROSS FEDERAL MEDICARE A [facility] MEDICARE A [facility] MEDICARE A [facility] MEDICARE A [facility] FEDERAL MEDICARE A Care Teams Continuous Process Coffee Roaster Relationship Specialty Start Date End Date Pcp, Unknown PCP - General 04/29/25 Additional Source Comments The information contained in this document represents components of the legal health record. It is not the complete legal health record.[facility]
--- OUTSIDE RECORDS SUMMARY | 2025-06-11 17:22 | XMS_ITS | Clinical Summary ---
Author Organization [facility] Address [address] [place] [phone] Phone Care Team Providers Care Curtain Feller Blindstitch Name Role Phone Unavailable Primary Care Provider [...] on file Legal Sex Male 1:21 AM RN ER Gender Identity Not on file Sexual Orientation [...]
== END 2025-06-11 14:23 | disposition home or self-care (01) ==
LOC: HO.HKA 13:35
PROVIDERS: Visit Provider Internal Medicine Nephrology
DX: I10 Essential (primary) hypertension (principal); I50.810 Right heart failure, unspecified; N18.31 Chronic kidney disease, stage 3a; K76.7 Hepatorenal syndrome
CPT/HCPCS: 99214

== ENCOUNTER 2025-06-16 13:10 | Outpatient (REF) | payer BC, SELFPAY ==
[2025-06-16 14:50] LABS: Alanine Aminotransferase 23 U/L (0-40); Albumin Level 4.2 g/dL (3.5-5.0); Alkaline Phosphatase 42 U/L (39-117); Anion Gap 12 (12-20); Aspartate Amino Transferase 32 U/L (5-37); Blood Urea Nitrogen 16 mg/dL (9-16); Calcium 10.0 mg/dL (8.4-10.2); Carbon Dioxide 32 mmol/L (22-29); Chloride 100 mmol/L (96-108); Estimated Glomerular Filt Rate 48; Potassium 4.1 mmol/L (3.3-5.1); Sodium 140 mmol/L (135-145); Total Protein 6.3 g/dL (6.5-8.0)
== END 2025-06-16 13:11 | disposition home or self-care (01) ==
LOC: HO.LAB 13:10
PROVIDERS: PCP Internal Medicine; Visit Provider Internal Medicine
DX: I48.0 Paroxysmal atrial fibrillation (principal); I50.9 Heart failure, unspecified; N17.9 Acute kidney failure, unspecified; R18.8 Other ascites; Z91.81 History of falling
CPT/HCPCS: 36415; 80053

== ENCOUNTER 2025-06-16 13:29 | Outpatient (AMB) | payer BC, SELFPAY ==
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
[2025-06-16 13:47] VITALS: BP 126/82; PULSE 58; O2SAT 99; BMI 27.8
--- OUTSIDE RECORDS SUMMARY | 2025-06-16 16:37 | XMS_ITS | Clinical Summary ---
Author Organization [facility] Address [address] [place] [address] Phone Care Team Providers Care Jd Edwards Developer Name Role Phone Pcp, Unknown Primary [...] Description 09/24/2025 1:00 PM EST Office Visit [facility] Medicine [address] [place] [address] Merle Garces MD [address], [address] [place] [address] [email or web address] Health Maintenance Due Date Last Done [...] topic Medical Devices Not on file Insurance [facility] MEDICARE A BLUE [employer] FEDERAL MEDICARE A [facility] MEDICARE A [facility] MEDICARE A [facility] MEDICARE A [facility] FEDERAL MEDICARE A Care Teams Jd Edwards Developer Relationship Specialty Start Date End Date Pcp, Unknown PCP - General 04/29/25 Additional Source Comments The information contained in this document represents components of the legal health record. It is not the complete legal health record.[facility]
--- OUTSIDE RECORDS SUMMARY | 2025-06-16 16:37 | XMS_ITS | Clinical Summary ---
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
--- OUTSIDE RECORDS SUMMARY | 2025-06-16 16:37 | XMS_ITS | Clinical Summary ---
Author Organization [facility] Address [address], [place] [address] Phone Care Team Providers Care Chief Engineer Drilling And Recovery Name Role Phone Unavailable Primary Care Provider [...] Diagnosed Date Abnormal EKG 05/16/2024 CAD in [place] artery 05/16/2024 Type 2 diabetes mellitus without complication Atherosclerosis of coronary artery without angin a pectoris 07/02/2023 Stented coronary artery 07/02/2023 Mixed hyperlipidemia 01/27/2023 Essential hypertension 07/17/2022 Obstructive sleep apnea syndrome 07/17/2022 Paroxysmal atrial fibrillation 07/17/2022 Chronic lung disease 04/06/2022 Moderate mitral regurgitation 04/06/2022 Chest pain 09/23/2020 Myocardial infarction 09/23/2020 Encounters Date Type Department Care Team Description 04/02/2025 Telephone [facility] [address] [place] [phone] Marian Holland from Last 3 Months Immunizations [...] to complete this topic Sigmoidoscopy Discontinued Insurance [facility] [place] [facility] Address[address] [place] [id number] [facility] Address: [address] [place] [address]
--- OUTSIDE RECORDS SUMMARY | 2025-06-16 16:37 | XMS_ITS | Encounter Summary ---
Author Organization [facility] Address [address] [place] [address] Care Team Providers Care Street Light Lamp Cleaner Name Role Phone Unavailable Primary Care Provider Unavailabl e Encounter Details Date Type Department Care Team (Late st Contact Info) Description 05/17/2021 Lab Requisition [facility] [place] [address] 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 Gender Identity Not on file Sexual Orientation Not on file documented as of this encounter Plan of Treatment Not on file documented as of this encounter Procedures Procedure Name Priority Date/Time Associated Diagnosis Comments PATHOLOGY Routine 05/17/2021 10:00 AM CDT documented in this encounter Results * PATHOLOGY (05/17/2021 10:00 AM CDT) CASE REPORT Surgical Pathology Report Case: [id number] Authorizing Provider: Tomás Alamo PA Collected: 05/17/2021 10:00 AM Ordering Location: [facility] Received: 05/17/2021 12:52 PM Services [place] Pathologist: Dipak Perera MD Specimens: A) - Forearm, right, LIPOMA HRCN [id number] B) - Shoulder, left, SEBACEOUS CYST 05/18/2021 10:22 AM [facility] FINAL DIAGNOSIS A. Soft tissue, right forearm, excision- Angiolipoma B. Skin, left shoulder, excision- Epidermal inclusion cyst 05/18/2021 10:22 AM [facility] Verified by Dipak Perera MD [...] material. RSS 1. KM 05/18/2021 10:22 AM [facility] OPERATIVE PROCEDURE A. [id number] B. [id number] 05/18/2021 10:22 AM [facility] CLINICAL INFORMATION No Dx found. 05/18/2021 10:22 AM [facility] COMMENT [facility] Surgical cases might have been signed out in the following labs: [facility] [place], CLIA#[id number] , [address], [place] [address] [facility], CLIA# [id number], [address] [place] [address] 05/18/2021 10:22 AM [facility] Tissue (Forearm, right) 05/17/2021 10:00 AM CDT 05/17/2021 12:52 PM CDT Tissue specimen (specimen) (Shoulder, left) 05/17/2021 10:22 AM CDT 05/17/2021 12:52 PM CDT Tomás Alamo PA-C PATHOLOGY/CYTOLOGY ORDERABLES Final Result [facility] CLIA# [id number] [address] [place] [address] documented in this encounter Visit Diagnoses Not on filedocumented in this encounter
== END 2025-06-16 14:14 | disposition home or self-care (01) ==
LOC: HO.HMCH 13:30
PROVIDERS: PCP Internal Medicine; Visit Provider Internal Medicine
DX: N17.9 Acute kidney failure, unspecified (principal); Z91.81 History of falling; I48.0 Paroxysmal atrial fibrillation; R18.8 Other ascites

== ENCOUNTER 2025-06-19 17:04 | Inpatient (IN) | payer MEDICARE, BC, SELFPAY ==
--- OUTSIDE RECORDS SUMMARY | 2006-09-29 06:33 | XMS_ITS | Continuity of Care Document ---
Author Organization [facility] Address [address] [address] [place] [address] Phone Care Team Providers Care Home Theater Installer Name Role Phone Shaun FONSECA, Jaylen Unavailable [...] Date Provider Providers Copied on Encounter Eye [facility], [address] [address], [place], [place], [id number], tel:[phone] [facility] Patient dislikes glasses (chief complaint) No Information Shaun York. [address] [facility] [address] [facility] [address], [place], [id number], [place]. tel:[phone] Family History Family Member Type Diagnosis Age At Onset Problem (finding) Family history of HBP Payers Payer name Insurance type Covered republican ID Authoriza tion(s) No Information Social History [...]
--- NOTE | ~2025-06-19 | MR_ITS ---
EXAMINATION: MR BRAIN WITHOUT AND WITH CONTRAST CLINICAL INFORMATION: Prepontine mass. Altered mental status. Head injury. COMPARISON: CT head and neck angiography with IV contrast. TECHNIQUE: Multiplanar, multisequence MRI of the brain was obtained before and after the intravenous administration of 10 mL Gadavist. In addition axial T2 fiesta and pre and post axial and coronal T1 thin imaging through the posterior fossa with attention the prepontine mass was performed. FINDINGS: There is no restricted diffusion seen to suspect any acute ischemic changes. There is no magnetic susceptibility artifact to suspect an acute or chronic hemorrhagic products. There are diffuse T2 FLAIR signal changes seen in the periventricular white matter of both cerebral hemispheres without edema or enhancement suggestive of chronic small vessel ischemic changes. The lateral ventricles are symmetrical in size and configuration but mildly enlarged. There is a prepontine enhancing mass measuring 1.6 cm x by 1.9 cm x 9 mm shifting the basilar artery to the left and mild mass effect on the right anterior lauryn flattening the the dorsal surface. There is mild dural enhancement visualized. No additional areas of dural enhancement is seen any additional lesions. There is normal flow-void signal seen in major cerebral vasculature the bone marrow signal and the scalp soft tissues are normal. 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 There is mild mass effect on the ventral lauryn and mild deviation of basilar artery to the left midline. No additional intracranial lesions seen. Chronic small cystic changes in both cerebral hemispheres. No acute infarct or bleed visualized. Electronically signed by: Craig Nieves MD 06/20/2025 03:33 PM EDT
--- NOTE | ~2025-06-19 | CT_ITS ---
CLINICAL HISTORY: new nodular opacity on CXR CT chest with contrast Comparison: CR - XR CHEST 2V - 06/19/25 20:05 EDT Findings: Normal heart size. Trace pericardial effusion calcific coronary artery disease: Moderate. Normal caliber thoracic aorta. No evidence of mediastinal hematoma. No mediastinal lymphadenopathy. Compressive atelectasis right lower lobe. Nodular opacity right upper lobe probable atelectasis or scarring follow-up until resolution. Large right pleural effusion. No pneumothorax. Calcified granulomas. Central airways are patent. No bronchiectasis. No thyroid nodules. No chest wall masses.No axillary adenopathy. Ascites. No hepatosplenomegaly. Mesenteric edema. No acute fractures or pathologic bone lesions. Impression: 1. Large right pleural effusion. Compressive atelectasis right lower lobe. Nodular opacity right upper lobe possibly atelectatic or scarring underlying mass not excluded. Follow-up until resolution. Evidence of old granulomatous disease. Likely reactive mediastinal lymph nodes. 2. Trace pericardial effusion. Calcified coronary artery disease. 3. Moderate amount of free ascites. No hepatosplenomegaly. Mesenteric edema. This document has been electronically signed by: Solis Barraza MD on 06/20/2025 07:21:43
--- NOTE | ~2025-06-19 | US_ITS ---
EXAMINATION: ULTRASOUND-GUIDED THORACENTESIS CLINICAL INFORMATION: Large right pleural effusion. COMPARISON: None available. TECHNIQUE: Following explaining ultrasound-guided right thoracentesis procedure, benefits and risk, a written consent was obtained. Patient was placed upright sitting on ultrasound stretcher and preliminary ultrasound imaging was obtained through the right posterior chest. An optimal site was selected along the inferior scapular line approximately 10th interspace and marked on the skin. The marked site was cleaned and draped in usual sterile manner. 1% lidocaine was administered puncture site. Through a small skin incision a 5 [employer] catheter was advanced from the skin into the pleural space. After observing fluid return, stylet was withdrawn and catheter to 50 mL syringe and fluid collected for diagnostic purpose. Eventually the catheter was connected to a vacuum bottle via connecting cannula. After obtaining all fluid and observing no more fluid remaining, catheter was removed and complete hemostasis achieved at puncture site. Sterile dressing applied post procedure. Patient tolerated procedure extremely well. Patient was monitored during exam. A chest x-ray was obtained subsequently. FINDINGS: There is moderate right pleural effusion on preliminary ultrasound imaging. Approximately 1.5 cm of clear yellowish fluid was drained from the right pleural space. US/US thoracentesis IMPRESSION: Successful ultrasound-guided diagnostic and therapeutic right thoracentesis performed . Electronically signed by: Craig Neives MD 07/01/2025 07:32 AM [facility]
--- NOTE | ~2025-06-19 | XR_ITS ---
EXAMINATION: XR CHEST CLINICAL INFORMATION: post-thoracentesis R side COMPARISON: 06/19/2025 TECHNIQUE: Frontal view of the chest was obtained. FINDINGS: No pleural line is identified. There are coarse markings in the lungs, left greater than right. Nodular densities again noted in the medial right upper lung zone. Heart size is within normal limits. XR/XR chest 1V IMPRESSION: No right pneumothorax is identified post thoracentesis. Electronically signed by: Kwesi Bains MD 06/23/2025 12:58 PM EDT
--- NOTE | ~2025-06-19 | XR_ITS ---
CLINICAL HISTORY: AMS Two views of the chest. COMPARISON: XR chest dated 06/06/25 at 16:45 EDT XR chest dated 05/14/25 at 22:[address] chest dated 03/02/25 at 23:47 EDT FINDINGS: Normal heart size. Elevation of the right hemidiaphragm. Consolidation along the medial right upper lung, similar to prior imaging. Blunting of the right costophrenic angle. No pneumothorax. Right hilar nodular opacity measuring 3.0 x 1.6 cm, stable. No acute fracture. IMPRESSION: 1. Small right pleural effusion, similar to prior imaging. 2. Persistent consolidation within the right upper lung likely representing scarring. 3. Right hilar nodular opacity measuring up to 3.0 cm, stable. Recommend CT of the chest for further characterization. This is new since imaging dated 05/14/2025 4. Persistent elevation of the right hemidiaphragm, unclear etiology. This document has been electronically signed by: Erwin Dexter MD on 06/19/2025 21:02:15
--- NOTE | ~2025-06-19 | CT_ITS ---
CLINICAL HISTORY: head injury, mental status changes CT head without contrast CT angiography head and neck with contrast. 3D Postprocessing. COMPARISON: CT angiogram head and neck dated 05/01/25 at 21:43 EDT FINDINGS: HEAD CT: Homogeneously enhancing prepontine extra-axial mass on the right measuring 1.8 x 1.0 x 1.9 cm (series 5, image 40), stable. No midline shift, hydrocephalus or acute hemorrhage. Moderate white-matter small-vessel disease with mild global cerebral volume loss. There is no sinus or mastoid fluid. The orbits are within normal limits. There is no acute fracture. HEAD AND NECK CTA: Aortic arch and cervical great vessels are patent. Small amount of calcified plaque present at the carotid bulbs bilaterally without significant stenosis. Intracranial arteries are patent. No aneurysm, dissection, hemodynamically significant stenoses, or occlusion. No abnormal intracranial enhancement. The visualized thyroid gland is unremarkable. No cervical mass or fluid collection. Partially visualized large right pleural effusion. No acute fracture. IMPRESSION: 1. No acute intracranial findings. 2. Patent head and neck CTA. 3. Stable homogeneous enhancing prepontine mass measuring up to 1.9 cm most likely representing a meningioma. Recommend comparison with more remote imaging if available. MR with and without IV contrast would be helpful for further characterization. This document has been electronically signed by: Erwin Dexter MD on 06/19/2025 19:45:23
[2025-06-19 17:11] VITALS: BP 150/87; PULSE 58; RESP 18; TEMP 36.2; O2SAT 93; BMI 27.0
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
--- NOTE | 2025-06-19 17:21 | ECG_ITS ---
Test Reason : AMS Blood Pressure : */* mmHG Vent. Rate : 56 BPM Atrial Rate : 56 BPM P-R Int : 250 ms QRS Dur : 190 ms QT Int : 546 ms P-R-T Axes : 5 106 14 degrees QTcB Int : 526 ms Sinus bradycardia with 1st degree A-V block Right bundle branch block Abnormal ECG When compared with ECG of 19-May-2025 09:01, Sinus rhythm has replaced Atrial fibrillation Vent. rate has decreased by 44 bpm Referred By: Jena Gomez Electronically Signed By: CASH MORROW MD
[2025-06-19 17:40] LABS: MANUAL DIFF FLAG NO
[2025-06-19 17:42] LABS: Hematocrit 40.5 % (42.0-52.0); Hemoglobin 13.3 g/dl (14.0-18.0); Imm Gran Abs Auto 0.03 X10*3/uL (0.00-0.03); Imm Gran Pct Auto 0.4 % (0.0-0.4); Lymphocytes Absolute Auto 2.3 X10*3/uL (1.2-4.9); Mean Corpuscular HGB Conc 32.8 g/dl (31.0-36.0); Mean Corpuscular Hemoglobin 26.9 pg (27.0-33.0); Mean Corpuscular Volume 82.0 fL (80.0-98.0); NRBC Abs Auto 0.000 X10*3/uL (0.0-0.012); NRBC Pct Auto 0.0 /100WBC (0.0-0.2); Platelet Count 217 X10*3/uL (160-400); Red Blood Count 4.94 X10*6/uL (4.60-5.80); White Blood Count 7.5 X10*3/uL (4.8-10.8)
[2025-06-19 17:52] VITALS: BP 148/94; PULSE 55; RESP 18; O2SAT 96
[2025-06-19 17:55] LABS: Alanine Aminotransferase 26 U/L (0-40); Albumin Level 4.8 g/dL (3.5-5.0); Alkaline Phosphatase 49 U/L (39-117); Anion Gap 16 (12-20); Aspartate Amino Transferase 33 U/L (5-37); Blood Urea Nitrogen 16 mg/dL (9-16); Calcium 10.2 mg/dL (8.4-10.2); Carbon Dioxide 28 mmol/L (22-29); Chloride 95 mmol/L (96-108); Creatinine Clr Calc Pharmacy 47.6; Estimated Glomerular Filt Rate 46; Magnesium 2.0 mg/dL (1.6-2.6); Potassium 4.3 mmol/L (3.3-5.1); Sodium 135 mmol/L (135-145); Total Protein 7.3 g/dL (6.5-8.0)
[2025-06-19 18:03] LABS: Troponin-I High Sensitivity < 2.7 ng/L (<3.5-35.0)
[2025-06-19 18:19] LABS: Resp Syncy Virus RNA Qual PCR NEGATIVE (Negative); SARS COV2 PCR INHOUSE NEGATIVE (Negative)
[2025-06-19] MEDS: iohexoL 350 MG/ML 100 ML INFUS..BTL IV (19:17)
[2025-06-19 19:27] VITALS: BP 141/91; PULSE 54; RESP 16; O2SAT 95
--- OUTSIDE RECORDS SUMMARY | 2025-06-19 19:39 | XMS_ITS | Encounter Summary ---
Author Organization [facility] Address [address] [place] [address] Care Team Providers Care Orthopedic Radiologic Technologist Name Role Phone Unavailable Primary Care Provider Unavailabl e Encounter Details Date Type Department Care Team (Late st Contact Info) Description 05/17/2021 Lab Requisition [facility] [place] [address] 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 Gender Identity Not on file Sexual Orientation Not on file documented as of this encounter Plan of Treatment Not on file documented as of this encounter Procedures Procedure Name Priority Date/Time Associated Diagnosis Comments PATHOLOGY Routine 05/17/2021 10:00 AM CDT documented in this encounter Results * PATHOLOGY (05/17/2021 10:00 AM CDT) CASE REPORT Surgical Pathology Report Case: [id number] Authorizing Provider: Tomás Alamo PA Collected: 05/17/2021 10:00 AM Ordering Location: [facility] Received: 05/17/2021 12:52 PM Services [place] Pathologist: Dipak Perera MD Specimens: A) - Forearm, right, LIPOMA HRCN [id number] B) - Shoulder, left, SEBACEOUS CYST 05/18/2021 10:22 AM [facility] FINAL DIAGNOSIS A. Soft tissue, right forearm, excision- Angiolipoma B. Skin, left shoulder, excision- Epidermal inclusion cyst 05/18/2021 10:22 AM [facility] Verified by Dipak Perera MD [...] material. RSS 1. KM 05/18/2021 10:22 AM [facility] OPERATIVE PROCEDURE [id number]. [id number] B. [id number] 05/18/2021 10:22 AM [facility] CLINICAL INFORMATION No Dx found. 05/18/2021 10:22 AM [facility] COMMENT [facility] Surgical cases might have been signed out in the following labs: [facility], CLIA#[id number] , [address], [place] [address] [facility], CLIA# [id number], [address] [place] [address] 05/18/2021 10:22 AM [facility] Tissue (Forearm, right) 05/17/2021 10:00 AM CDT 05/17/2021 12:52 PM CDT Tissue specimen (specimen) (Shoulder, left) 05/17/2021 10:22 AM CDT 05/17/2021 12:52 PM CDT Tomás Alamo PA-C PATHOLOGY/CYTOLOGY ORDERABLES Final Result [facility] CLIA# [id number] [address] [place] [address] documented in this encounter Visit Diagnoses Not on filedocumented in this encounter
--- OUTSIDE RECORDS SUMMARY | 2025-06-19 19:39 | XMS_ITS | Clinical Summary ---
Author Organization [facility] Address [address], [place] [address] Phone Care Team Providers Care Matcher Offbearer Name Role Phone Unavailable Primary Care Provider [...] Diagnosed Date Abnormal EKG 05/16/2024 CAD in [place] artery 05/16/2024 Type 2 diabetes mellitus without complication Atherosclerosis of coronary artery without angin a pectoris 07/02/2023 Stented coronary artery 07/02/2023 Mixed hyperlipidemia 01/27/2023 Essential hypertension 07/17/2022 Obstructive sleep apnea syndrome 07/17/2022 Paroxysmal atrial fibrillation 07/17/2022 Chronic lung disease 04/06/2022 Moderate mitral regurgitation 04/06/2022 Chest pain 09/23/2020 Myocardial infarction 09/23/2020 Encounters Date Type Department Care Team Description 04/02/2025 Telephone [facility] [address] [place] [phone] Marian Holland from Last 3 Months Immunizations [...] to complete this topic Sigmoidoscopy Discontinued Insurance [facility]
--- OUTSIDE RECORDS SUMMARY | 2025-06-19 19:39 | XMS_ITS | Clinical Summary ---
Author Organization [facility] Address [address] [place] [address] Phone Care Team Providers Care Hat Renovator Name Role Phone Pcp, Unknown Primary Care [...] Description 09/24/2025 1:00 PM EST Office Visit [facility] [address] [place] [address] Merle Garces MD [address], [address] [place] [address] [email or web address] Health Maintenance Due Date Last Done [...] topic Medical Devices Not on file Insurance [facility] MEDICARE A BLUE CROSS FEDERAL MEDICARE A [facility] MEDICARE A [facility] MEDICARE A [facility] MEDICARE A [facility] FEDERAL MEDICARE A Care Teams Hat Renovator Relationship Specialty Start Date End Date Pcp, Unknown PCP - General 04/29/25 Additional Source Comments The information contained in this document represents components of the legal health record. It is not the complete legal health record.[facility]
--- OUTSIDE RECORDS SUMMARY | 2025-06-19 19:39 | XMS_ITS | Clinical Summary ---
Author Organization [facility] Address [address] [place] [phone] Phone Care Team Providers Care Change Person Name Role Phone Unavailable Primary Care Provider Unavailabl e Encounters Date Type Department Care Team Description 06/17/2025 External Device Data STL ABSTRACTION Provider, Abstract 05/13/2025 External Device Data STL ABSTRACTION Provider, Abstract 04/29/2025 External Device Data ST[facility] ABSTRACTION Provider, Abstract from Last 3 Months Social History Tobacco Use Types Packs/Day Years Used Date Smoking Tobacco: Never Assessed Sex and Gender Information Value Date Recorded Sex Assigned at Not on file 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
--- OUTSIDE RECORDS SUMMARY | 2025-06-19 19:39 | XMS_ITS | Encounter Summary ---
Author Organization [facility] Address 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
--- OUTSIDE RECORDS SUMMARY | 2025-06-19 19:39 | XMS_ITS | Data Portability ---
Author Organization [facility] [place] Address [address] [facility] [address] [place] [address] Care Team Providers Care Assessment Counselor Name Role Phone [facility] Primary Care Provider ROB N[facility] Center Rep Assessment Encounter Date Assessment Date Assessment LastModified [...] Time Details Appointments ECHO 2025 10:45A [facility] Not available Not available Not available CARDI KOFI GORE D 2025 11:45A M Bryant Mendez MD Not available Not available Not available Lab None recor ded. Referral None recor ded. Procedures None recor ded. Surgeries None recor ded. Imaging arpita milligan am 2023 024 [email or web address] [place], [address] [place] [address] [address], [place], [address], 06/27/2024 14:58:34 arpita milligan am 2023 024 [email or web address] [place], [address], [place], [address], 12/21/2023 16:25:54 Medication Orders None recor ded. [...] 06/28/20 23 06/28/2023 NM, myoca rdial perfu courtney scan, w/ stres s No observ ation record ed. [email or web address] [facility] [address], [place], [address], 07/05/2023 15:22:13 12/21/19 elect rocar diogr am No observ ation record ed. [email or web address] [facility] ity [address], [place], [address], 12/21/2023 16:19:10 12/21/19 24 elect rocar diogr am No observ ation record ed. [email or web address] Not Available 2023 16:16:01 06/27/20 24 07/03/2024 elect rocar diogr am No observ ation record ed. [email or web address] [place] [address], [place], [address], 07/03/2024 10:31:06 06/27/20 24 elect rocar diogr am No observ ation record ed. [email or web address] Not Available 2023 10:03:48 06/27/20 24 06/27/2024 US, echoc ardio gram, trans thora cic, compl ete, w/ color flow No observ ation record ed. [email or web address] Not Available 2023 10:59:16 01/24/20 25 01/23/2025 elect rocar diogr am No observ ation record ed. [email or web address] [place] [address], [place], [address], 01/23/2025 20:58:27 01/24/20 elect rocar diogr am No observ ation record ed. [email or web address] Not Available 2024 13:38:49 03/07/20 25 03/02/2025 elect rocar diogr am No observ ation record ed. [email or web address] Not Available 03/07 15:24:04 03/07/20 25 03/02/2025 XR, chest , 1 view No observ ation record ed. [email or web address] Not Available 03/07 15:24:41 Result Notes Documentation Provider Name and Address Organization Details Recorded Time Nm, Myocardial Perfusion Scan, W/ Stress : Stress LV EF: 61%. Medium size, mostly fixed inferior wall perfusion defect EMMANUEL MOTT nga, [facility] 07/05/2023 15:22:13 Problems Name Problem SNOMED Code Status Onset Date Resolution Date Notes Provider Name and Address Organization Details Recorded Time Mitral valve regurgitat ion 30573995 Active 2021 AIXA sylvester, [facility] 2 10:52:39 Placement of stent in cardiac conduit Active 2021 [facility] 3 [facility] 10:52:50 Type 2 diabetes mellitus 72677900 Active 2021 [facility] 2 10:52:59 Cardiovers ion Active 2021 [facility] 2 10:53:31 Chronic lung disease 487358442 Active 2021 [facility] 2 10:56:39 Paroxysmal atrial fibrillati on 729441985 Active 2021 [facility] [address], [place], [address], [facility] Cardiovascular [facility] 2 10:54:46 Obstructiv e sleep apnea syndrome 95950291 Active 2021 Surjit Miner [facility] [address], [place], [address], [facility] 2 10:55:19 Essential hypertensi on 80138200 Active 2021 Surjit Miner, [facility] [address] [facility] [address], [place], [address], [facility] 2 10:55:24 Hyperlipid emia 43873517 Active 2022 NEAL [facility]OUZAABE [facility] 3 14:45:54 Dyspnea on dressing and undressing 211054776 Active 2022 [facility] 3 10:59:09 Stented coronary artery 605607699 Active 2022 [facility] 3 10:59:16 Atheroscle rosis of coronary artery without angina pectoris 417595106667 103 Active 2022 [facility] 3 10:59:22 History of benign neoplasm of brain 270790918 Active 2024 Surjit Miner, [facility] [address] [facility] [address], [place], [address], [facility] 5 14:03:26 Problem Notes None recorded. Procedures Surgical History Date Name Laterality Status Provider Name and Address Organization Details Recorded Time 024 Tte w/doppler complete completed Not Available [facility] [employer] [facility] 06/27/2024 14:17:25 023 Cardiac Catheterization completed [facility] 08/15/2023 17:28:21 023 Ht muscle image spect mult completed Not Available [facility] [employer] [facility] 06/28/2023 16:42:22 023 Cardiovascular stress test completed Not Available [facility] [employer] [facility] 06/28/2023 16:42:22 022 Cardioversion completed [facility] 08/04/2023 16:09:13 021 Coronary Artery Stent completed SAURAV ZAVALA [facility] 08/04/2023 16:05:38 Imaging Results None recorded. Procedure Notes None recorded. Medical Equipment None Reported. Allergies Allergen ID Allergen Name Allergen Category Reaction Reaction Severity Criticality Documentation Date Start Date Code Code System Note Provider Name and Address Organization Details Recorded Time 03241 Product containin g penicilli n (product) medicatio n Not available Not available Not available 04/06/2022 00053 8001 SNOMED [facility] 10:45:30 64905 lisinopri l medicatio n Not available Not available Not available 04/06/2022 27580 RxNorm AIXA FELIPE [facility] 2 10:45:41 19853 Erythroci n medicatio n Not available Not available Not available 04/06/2022 28694 3 RxNorm AIXA FELIPE [facility] 2 10:45:48 Medications Name Sig Start [...] twice a day by oral route for 90 days. active Not Available Not Available No t Available alogliptin 25 mg tablet 04/06 completed [...] Last Updated DateTime 12/21/[address] [facility] 12/21/2023 16:00:50 Date Recorded Body mass index (BMI) Body weight Heart rate Oxygen saturation Oxygen saturation in Arterial blood by Pulse oximetry Systolic And Diastolic Provider Name and Address Organization Details Last Updated DateTime 4 31 kg/m2 381377. 21 g 60 /min 98 % 98 % 120/74 mm[Hg] Latricia [facility] 4 16:17:06 Date Recorded Body height Body mass index (BMI) Body weight Heart rate Oxygen saturation Oxygen saturation in Arterial blood by Pulse oximetry Systolic And Diastolic Provider Name and Address Organization Details Last Updated DateTime 5 33.02 cm 873.6 kg/m2 84475.4 g 53 /min 98 % 98 % 162/84 mm[Hg] Shannan Wrightbety [facility] 5 13:44:49 Date Recorded Body height Body mass index (BMI) Body weight Heart rate Oxygen saturation Oxygen saturation in Arterial blood by Pulse oximetry Systolic And Diastolic Provider Name and Address Organization Details Last Updated DateTime 3 185.42 cm 31 kg/m2 833224. 21 g 80 /min 96 % 96 % 144/90 mm[Hg] Latricia [facility] 3 13:43:14 Date Recorded Body height Body mass index (BMI) Body weight Heart rate Oxygen saturation Oxygen saturation in Arterial blood by Pulse oximetry Systolic And Diastolic Provider Name and Address Organization Details Last Updated DateTime 4 185.42 cm 30.6 kg/m2 672190. 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 Information not available 04/06/2022 What Was [...] Details Recorded Time SARS-COV-2 (COVID-19) vaccine, UNSPECIFIED 1 completed [facility] 04/06/2022 10:51:58 pneumococcal polysaccharide PPV23 7 hortensia sylvester, [facility] 04/06/2022 10:52:06 influenza, unspecified formulation 1 [facility] 04/06/2022 10:52:28 Influenza, adjuvanted, quadrivalent, PF 2 completed [facility] 09/07/2022 13:55:00 SARS-COV-2 (COVID-19) vaccine, UNSPECIFIED 1 completed [facility] 09/07/2022 13:55:07 SARS-COV-2 (COVID-19) vaccine, UNSPECIFIED 1 completed [facility] 09/07/2022 13:55:10 SARS-COV-2 (COVID-19) vaccine, UNSPECIFIED 1 [facility] 09/07/2022 13:55:13 Pneumococcal Conjugate, unspecified formulation 1 hortensia [facility] 09/07/2022 13:55:21 Past Encounters Encounter ID Performer Location Encounter Start Date Encounter Closed Date Diagnosis/Indication Diagnosis SNOMED-CT Code Diagnosis ICD10 Code Diagnosis IMO Codes Diagnosis Note [id number] Bryant Mendez MD [address] [address] 04/06/2022 10:33:36 04/06/2022 11:57:59 Atrial fibrillation 64796433 I48.91 Persistent , quite likely exacerbate d by his suboptimal ly treated sleep apnea syndrome Obstructiv e sleep apnea syndrome 22828472 G47.33 Non-rheuma tic mitral regurgitation 096723425 I34.0 Atheroscle rosis of coronary artery without angina pectoris 5649176122 12081 I25.10 Stented co ronary artery 566417845 Z95.5 Right coronary artery, EAR[place], July 2021 [id number] Surjit Miner, [address] [address] 07/18/2022 10:23:48 07/18/2022 10:53:26 Dyspnea 019048741 R06.00 Mitral lisa ve regurgitation 43781628 I34.0 Chronic lung disease 413 234176 J98.4 Paroxysmal atrial fibrillation 122939687 I48.0 Type 2 la betes mellitus 51082015 E11.9 Essential hypertension 84597056 I10 Obstructiv e sleep apnea syndrome 81463208 G47.33 [id number] Bryant Mendez MD [address] [address] 09/07/2022 12:15:12 09/07/2022 14:37:05 Essential hypertension 05671685 I10 Mitral lisa ve regurgitation 47696694 I34.0 Paroxysmal atrial fibrillation 400308173 I48.0 Type 2 la betes mellitus 49261676 E11.9 Stented co ronary artery 533621786 Z95.5 Right coronary artery, EARLE, July [id number] Alessio Chirinos, [place] [id number] [facility] [address] [place] [address] 06/15/2023 13:28:41 06/15/2023 14:02:37 Essential hypertension 75577018 I10 Obstructiv e sleep apnea syndrome 29413840 G47.33 Paroxysmal atrial fibrillation 066531087 I48.0 Type 2 la betes mellitus 38455773 E11.9 Stented co ronary artery 974683215 Z95.5 [id number] Alessio Chirinos [facility] [address] [place] [address] 12/21/2023 15:54:58 12/21/2023 16:24:27 Essential hypertension 11498767 I10 Type 2 la betes mellitus 39498869 E11.9 Obstructiv e sleep apnea syndrome 41428090 G47.33 Mitral lisa ve regurgitation 30935668 I34.0 Paroxysmal atrial fibrillation 727758001 I48.0 [id number] Bryant Mendez MD [place] [address] [place] [address] 06/27/2024 12:27:58 06/27/2024 14:23:54 Essential hypertension 79672060 I10 Atheroscle rosis of coronary artery without angina pectoris 4879227499 74787 I25.10 Chronic lung disease 413 369362 J98.4 Mitral lisa ve regurgitation 05790002 I34.0 Obstructiv e sleep apnea syndrome 37030853 G47.33 Paroxysmal atrial fibrillation 796833394 I48.0 Stented co ronary artery 333267322 Z95.5 Type 2 la betes mellitus 76535291 E11.9 [id number] Bryant Mendez MD [place] [address] [place] [address] 01/23/2025 13:20:35 01/23/2025 13:57:31 Stented coronary artery 673709297 Z95.5 Atheroscle rosis of coronary artery without angina pectoris 3046454669 47692 I25.10 Hyperlipidemia 78179888 E78.5 Essential hypertension 21129396 I10 Paroxysmal atrial fibrillation 596052567 I48.0 Type 2 la betes mellitus 49226003 E11.9 Chronic lung disease 413 126840 J98.4 Obstructiv e sleep apnea syndrome 76226384 G47.33 History of benign neoplasm of brain 298583373 Z86.011 085090 Health Concerns Section Related Observation LastModified by Organization Detai ls LastModified Time None Recorded Concern Status LastModified by Organization Details LastModified Time None Recorded Advance Directives Directive N: Payers Insurance Date Sequence Insurance Name Policy Number Policy Kennedy Covered Member ID Kennedy Member ID Guarantor Name 01/23/2025 2 [place]: [employer] [facility] Stone Walker [id number] Stone Walker 01/23/2025 [facility] Stone Walker [id number] Stone Walker 01/23/2025 [facility] Stone Walker [id number] Stone Walker 04/21/2025 1 [place] [facility] [employer] (PPO) [id number] Stone Walker [id number] Stone Walker 01/23/2025 [facility] Stone Walker ADA [id number] Stone Walker 01/23/2025 [facility] Stone Walker [id number] Stone Walker Notes Date Note Type Note [...] the 140/90 range. Alessio Chirinos, [facility] [address], [place], [address], [facility] Cardi[facility] 06/15/2023 14:03:28 12/21/2023 text/html This is [...] CPAP at night tolerating well. Alessio Chirinos, [facility] [address], [place], [address], [facility] 12/21/2023 16:26:15 06/27/2024 text/html Stone Walker [...] prescriptions out for him. He sees Dr. Nolasco who manages his CPAP. He has been [...] and a QTc of 484 ms. Surjit Miner, [facility] [address] [facility] [address], [place], [address], [facility] 06/27/2024 14:27:52 01/23/2025 text/html [...] have been fewer in number. Surjit Miner, [facility] [address] [place] [address] [address], [place], [address], [facility] 01/23/2025 15:50:22
[2025-06-19 19:49] LABS: Appearance Urine Clear; Glucose Urine UA 250 mg/dL (Negative); PH 7.5 (5.0-9.0); Specific Gravity - Urine 1.020 (1.005-1.025)
[2025-06-19] MEDS: Lactated Ringers 500 ML IV (19:50)
[2025-06-19 19:56] LABS: Ammonia 32 umol/L (13-55)
[2025-06-19 20:09] LABS: Free T4 (Free Thyroxine) 1.24 ng/dL (0.71-1.85)
[2025-06-19 22:15] VITALS: BP 130/80; PULSE 51; RESP 20; O2SAT 94
--- NOTE | 2025-06-19 22:21 | PC.NURSE ---
Addendum entered by Nella Jackson RN 06/19/25 22:26: spoke with Erika, cardiac catheterization technologist, will update med req. Original Note: son Travis called, stated pt is suppose to stop taking jardiance as of today 06/19/25 due to a scheduled ablation on monday06/23/25.
--- NOTE | 2025-06-19 22:31 | PHA.MEDREC ---
Addendum entered by Dia Tobin [facility] 06/19/25 22:53: [facility] reviewed Addendum entered by Erika Bangura 06/19/25 22:45: Patient family states pt stopped taking the Ozempic injection in the last few months on his own. Original Note: Pharmacy Consult ? Medication Reconciliation Pharmacy has completed the medication reconciliation. Spoke with pt and he was a poor historian; pt called his son and I spoke with pt son and daughter in law who confirmed the med rec. Pt takes Hydralazine 10mg TID PRN for BP over 160/90, Losartan 50mg QD; instead of as written in claims 1 BID, Metoprolol Succinate 50mg QD; claims has Metoprolol Tartrate 25mg QTY 180 for 30 days 06/13 for 30, Spironolactone 25mg 1 BID claims has QTY 120 for 30 days. Pt gets meds filled in [facility] mail order system in [place] and if needed for any new meds in [place], his family fills them at [facility] in [place]
[2025-06-20] VITALS (9 sets, daily range): BP systolic 120–155; BP diastolic 64–93; PULSE 45–55; RESP 14–18; TEMP 36–36.7; O2SAT 95–98; BMI 26.8
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
[2025-06-20 04:21] LABS: Hematocrit 38.8 % (42.0-52.0); Hemoglobin 12.7 g/dl (14.0-18.0); Mean Corpuscular HGB Conc 32.7 g/dl (31.0-36.0); Mean Corpuscular Hemoglobin 26.8 pg (27.0-33.0); Mean Corpuscular Volume 82.0 fL (80.0-98.0); NRBC Abs Auto 0.000 X10*3/uL (0.0-0.012); NRBC Pct Auto 0.0 /100WBC (0.0-0.2); Platelet Count 180 X10*3/uL (160-400); Red Blood Count 4.73 X10*6/uL (4.60-5.80); White Blood Count 5.7 X10*3/uL (4.8-10.8)
[2025-06-20 04:42] LABS: Anion Gap 15 (12-20); Blood Urea Nitrogen 14 mg/dL (9-16); Calcium 9.5 mg/dL (8.4-10.2); Carbon Dioxide 26 mmol/L (22-29); Chloride 100 mmol/L (96-108); Creatinine Clr Calc Pharmacy 50.0; Estimated Glomerular Filt Rate 48; Potassium 4.5 mmol/L (3.3-5.1); Sodium 136 mmol/L (135-145)
[2025-06-20] MEDS: iohexoL 350 MG/ML 100 ML INFUS..BTL IV (06:33)
--- NOTE | 2025-06-20 07:00 | CA_ITS ---
Transthoracic Echocardiogram Patient (Last, First, Middle): Stone Walker, Gender: Male Date of : 1950 Age: 75 Procedure Date: 06/20/2025 Procedure Type: Transthoracic Echocardiogram Location: [facility] [place] Height: 185.42 cm Weight: 92.53 kg BSA: 2.17 m2 Heart Rate: 53 bpm BP: 142 / 73 mmHg Singe Machine Operator: JUAN Referring MD: Kaela Olson PA-C Dehydrating Press Operator: Johnny Jameson MD Symptoms: ?CVA Study Quality: Adequate ECG Rhythm: Bradycardia Conclusions: - 1. Mildly to moderately reduced LV ejection fraction 40-45% with pseudonormal filling pattern 2. Severely dilated left atrium 3. Moderately dilated right-sided chambers with preserved RV systolic function by TAPSE 4. Moderate to severe mitral regurgitation, eccentric 5. [id number] tricuspid regurgitation with upper limits of normal RV systolic pressure 6. Upper limits of normal ascending aortic size 7. No gross pericardial effusion Findings Procedure Information Contrast agent, definity, is being given per protocol without apparent complications. Left Ventricle Normal left ventricular cavity size. There is normal left ventricular wall thickness. The left ventricular systolic function is mild to moderately decreased. The visually estimated ejection fraction is between 40-45%. Spectral Doppler is indicative of a pseudonormal filling pattern. Right Ventricle Moderately increased right ventricular cavity size. There is normal right ventricular systolic function. Atria The left atrium is severely dilated. There is no evidence of interatrial shunt. The right atrium is moderately dilated. Aortic Valve Normal aortic valve structure and function. There is no aortic valve stenosis. There is no aortic valve regurgitation. Mitral Valve There is mild anterior mitral leaflet thickening. There is mild mitral annular calcification. There is moderate to severe mitral valve regurgitation. There is no mitral valve stenosis. Pulmonic Valve The pulmonic valve is likely normal. Tricuspid Valve Normal tricuspid valve structure. There is mild to moderate tricuspid valve regurgitation. The right ventricular systolic pressure is normal. The right ventricular systolic pressure is 35 mmHg. Normal right atrial pressure. There is no evidence of pulmonary hypertension. Great Vessels The pulmonary artery was not well visualized. There is no dilatation of the ascending aorta measuring 3.60 cm. Venous The inferior vena cava is normal in size. Pericardium/Pleural There is no evidence of pericardial effusion. Prior Study Comparison No significant change compared to prior study dated: 05/15/2025. Measurements 2D Linear Measurements IVSd: 1.04 0.6-0.9/0.6-1.0 cm LVIDd: 5.37 3.9-5.3/4.2-5.9 cm LVIDd Index: 2.47 2.4-3.2/2.2-3.1 cm/m2 LVIDs: 3.63 2.0-3.6 cm LVPWd: 1.09 0.7-1.1 cm LA Diam: 5.90 2.7-3.8/3.0-4.0 cm LAIDs Index: 2.72 1.5-2.3 cm/m2 LV Mass: 277.70 67-162/88-224 g LV Mass Index: 127.97 43-95/49-115 g/m2 LVOT Diam: 2.30 3.0+(-)1.3 cm 2D Systolic Function EF 4C: 42.00 >55% EF 2C: 38.00 >55% EF BiP: 41.10 >55% Mitral Valve MV Pk E: 0.97 MV PK A: 0.62 MV Decel Time: 202.00 E/A: 1.60 E'Lateral: 10.60 E'Medial: 5.00 E/E' Med: 19.50 E/E' Lat: 9.20 PHT: 59.00 MVA PHT: 3.73 Decel [place]: 4.80 MR Vol - PW Dopp: 46.40 MR VTI: 2.32 MR ERO: 20.00 MR Alias Tristan: 0.39 MR RAD: 0.70 Aortic Valve AoV Pk Tristan: 1.13 AoV Mn Tristan: 0.72 AoV VTI: 0.23 AoV Pk Grad: 5.00 Aov Mn Grad: 2.00 LIEN Cont.VTI: 2.80 LVOT LVOT Pk Tristan: 0.75 LVOT Mn Tristan: 0.50 LVOT VTI: 0.15 LVOT Pk Grad: 2.00 LVOT Mn Grad: 1.00 LVOT Diam: 2.30 LVOT Area: 4.15 Diastolic Function MV Pk E: 0.97 MV Pk A: 0.62 E/A: 1.60 E'Medial: 5.00 E/E' Med: 19.50 E' Laterial: 10.60 E/E' Lat: 9.20 Right Ventricle TVS' Tristan: 8.27 Tricuspid Valve TR Pk Tristan: 2.81 TR Pk Grad: 32.00 RA Press: 3.00 RVSP: 35.00 Great Vessels Aorta Sinus of Valsalva: 3.50 2.0-3.5 cm Ao Asc: 3.60 2.1-3.4 cm Pulmonary Valve PV Pk Tristan: 0.66 Peak PV Grad: 2.00 Updated in Other Vendor System with Status of Final Johnny Jameson MD electronically signed on 06/21/2025 12:01:11 PM with status of Final
--- NOTE | 2025-06-20 07:44 | HO.NURTONUR ---
75 yr old male admitted for AMS w/brain mass and LY. Pt comes to ED with increase confusion, migraine x3 days, and visual hallucinations. Unwitnessed fall 1 week ago. Pt with known brain mass. CT and MRI scheduled--MRI screening form completed and faxed to MRI. Pt uses home CPAP machine at night. 20g RAC Neuro checks ordered. Pt passes swallow screening in ED A&Ox3 at this time. VSS Ambulatory Self feeds. Med rec completed by Pharmacy.
[2025-06-20] MEDS: 0.9 % Sodium Chloride Flush 3 ML SYRINGE IVFLUSH ×2 (07:50→16:09)
--- NOTE | 2025-06-20 09:45 | MHC.CM.PN ---
Addendum entered by Helga Louise 06/20/25 11:54: PATIENT IS ACTIVE WITH [facility], NOT [facility]. Original Note: THIS CM MET WITH PATIENT, HE STATES HE LIVES AT HOME WITH HIS SON. PATIENT STATES HE IS ACTIVE WITH [facility] FOR PT SERVICES, RETURN REFERRAL PLACED IN [place]. PATIENT STATES HIS SON IS HIS HCP, COPY REQUESTED. PATIENT STATES HIS SON WILL TRANSPORT HIM HOME AT DISCHARGE. PCP: DR. NICCI JEAN
[2025-06-20] MEDS: Venlafaxine HCl ER 75 MG CAP.ER.24H 225 MG PO (10:06)
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
[2025-06-20 12:15] LABS: Glucose, Whole Blood 110 mg/dL (60-115)
--- NOTE | 2025-06-20 14:24 | PM.EVENT ---
Event Note Date of Service: 06/20/25 Event Note: seen and examined this morning follow up for AMS patient awake, alert, NAD; reporting BOLANOS Patient is a 75-year-old male with a past medical history significant for CKD 3A, AFib on Eliquis, hypertension, CHF, Ver[place], history [place], sarcoidosis and TEA on CPAP, who presented to the ED due to altered mental status for the past 3 days. AMS, gait instability, brain mass, rule out CVA confusion resolved, gait instability persists MRI with and without IV contrast to further characterize brain mass per CT recommendation - showint 1.6 cm x 1.9 cm x 9 mm enhancing right CP angle/prepontine meningioma with a small dural tail. There is mild mass effect on the ventral lauryn and mild deviation of basilar artery to the left midline. No additional intracranial lesions seen - discussed results with neuro - no acute intervention required, they recommend outpatient neurosurgical consulttation passed bedside swallow PT rec acute rehab continue aspirin and statin LY on CKD monitor BMP hold diuretics new nodular opacity on chest x-ray CT chest with large pleural effusion, and nodular opacity unable to exclude malignancy pulm consult Paroxysmal a fib eliqius resume amiodorone BB on hold for bradycardia, resume at lower dose Chronic HFrEF, no acute exacerbation holding diuretics due to LY monitor for fluid overload VERONICA previous admission ascites on imaging, no abdominal pain or distention outpatient follow up with GI likely resume diuretics in am 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
--- NOTE | 2025-06-20 18:00 | MHC.SL.SWA ---
Speech Pathologist Impression: WFL Dysphasia Diet Status:No Change, continue on REGULAR/THIN Liquid Consistency and Strategies for Safe Swallow: Liquid Intake Recommendation: Thin Solid Food Consistency: Dietary Recommendations: Regular Oral Medication Intake: Whole with Liquid Please contact the pharmacy regarding appropriate crushable or liquid drug formulations that are available whenever modified delivery is recommended. Supervision While Eating and Drinking for Safe Swallow: None Needed Recommendation for Speech: NA:Typical Evaluation Comment: Unremarkable bedside swallow eval. Please re-refer with any further concern. Frequency/Duration: Date Range for Service Req: Timeline to reassess: Dealer Card Room Clinican/Clinical Fellow: No Supervisory Statement: I have reviewed and agree with the student/clinical fellow's documentation: N/A Speech Language Pathologist: Linda Cade M.A., CCC-ASSOCIATE DIRECTOR REGULATORY AFFAIRS
[2025-06-20 18:40] LABS: Glucose, Whole Blood 97 mg/dL (60-115)
[2025-06-20] MEDS: buPROPion HCl XL 150 MG TAB.ER.24H PO (20:22)
[2025-06-21] VITALS (9 sets, daily range): BP systolic 142–159; BP diastolic 82–100; PULSE 50–58; RESP 16–20; TEMP 36–36.7; O2SAT 95–98
[2025-06-21 01:21] LABS: Glucose, Whole Blood 80 mg/dL (60-115)
[2025-06-21 07:35] LABS: Glucose, Whole Blood 91 mg/dL (60-115)
[2025-06-21 08:19] LABS: Hematocrit 37.7 % (42.0-52.0); Hemoglobin 12.4 g/dl (14.0-18.0); Mean Corpuscular HGB Conc 32.9 g/dl (31.0-36.0); Mean Corpuscular Hemoglobin 26.7 pg (27.0-33.0); Mean Corpuscular Volume 81.1 fL (80.0-98.0); NRBC Abs Auto 0.000 X10*3/uL (0.0-0.012); NRBC Pct Auto 0.0 /100WBC (0.0-0.2); Platelet Count 196 X10*3/uL (160-400); Red Blood Count 4.65 X10*6/uL (4.60-5.80); White Blood Count 5.5 X10*3/uL (4.8-10.8)
[2025-06-21 08:35] LABS: Cholesterol 85 mg/dL (<200); HDL Cholesterol 38 mg/dL (>40); Triglycerides 55 mg/dL (<150)
[2025-06-21] MEDS: Venlafaxine HCl ER 75 MG CAP.ER.24H 225 MG PO (09:43)
[2025-06-21] MEDS: 0.9 % Sodium Chloride Flush 3 ML SYRINGE IVFLUSH ×3 (09:44→23:23)
[2025-06-21] MEDS: Metoprolol Succinate ER 25 MG TAB.ER.24H PO (09:44)
--- NOTE | 2025-06-21 12:58 | P.PNIM_ITS ---
Subjective Subjective Date of Service: 06/21/25 Review of Systems Follow up ataxia, speech difficulties no pain or discomfort Physical Exam 2 Exam: Exam: Appearing in no acute distress lung normal expansion heart regular rate rhythm, abdomen non distended neuro patient is alert x3, no focal deficits Vital Signs: Vital Signs: Last Vital Signs Temp 97 F 06/21/25 11:46 Pulse 55 06/21/25 11:46 Resp 16 06/21/25 11:46 BP 142/89 H 06/21/25 11:46 Pulse Ox 97 06/21/25 11:46 O2 Del Method CPAP 06/21/25 07:18 BMI result Body Mass Index 26.8 Objective Data Active Medications Acetaminophen (Acetaminophen 325 Mg Tablet) 650 mg PO Q6H PRN PRN Reason: Pain, Mild 1-3,fever,headache Last Admin: 06/21/25 09:53 Dose: 650 mg Documented By: MARCIANO Comments: per patient request Albuterol Sulfate (Albuterol Sulfate 90 Mcg 8 Gm Inhaler) 2 puff INHALE Q4H PRN PRN Reason: Shortness Of Breath Or Wheezing Amiodarone HCl (Amiodarone Hcl 200 Mg Tablet) 200 mg PO BID [facility] Last Admin: 06/21/25 08:03 Dose: Not Given Documented By: MARCIANO Non-Admin Reason: Physician Held Med Apixaban (Apixaban 5 Mg Tablet) 5 mg PO BID [facility] Last Admin: 06/21/25 09:44 Dose: 5 mg Documented By: MARCIANO Aspirin (Aspirin 81 Mg Tab.Chew) 81 mg PO DAILY [facility] Last Admin: 06/21/25 09:42 Dose: 81 mg Documented By: MARCIANO Atorvastatin Calcium (Atorvastatin Calcium 40 Mg Tablet) 40 mg PO DAILY [facility] Last Admin: 06/21/25 09:44 Dose: 40 mg Documented By: MARCIANO Bupropion HCl (Bupropion Hcl Xl 150 Mg Tab.Er.24h) 150 mg PO BEDTIME [facility] Last Admin: 06/20/25 20:22 Dose: 150 mg Documented By: FAUZIA Calcium Carbonate (Calcium Carbonate 750 Mg Tab.Chew) 750 mg PO Q4H PRN PRN Reason: Heartburn Calcium Carbonate (Calcium Carbonate 750 Mg Tab.Chew) 300 mg PO Q4H PRN PRN Reason: Heartburn Dextrose (Dextrose 50 % 25 Gm/50 Ml Syringe) 25 gm IVPUSH Q15M PRN; Protocol PRN Reason: per Hypoglycemia Standing Ord. Famotidine (Famotidine 20 Mg Tablet) 20 mg PO DAILY [facility] Last Admin: 06/21/25 09:44 Dose: 20 mg Documented By: MARCIANO Fenofibrate (Fenofibrate,Micronized 134 Mg Capsule) 134 mg PO DAILY [facility] Last Admin: 06/21/25 09:43 Dose: 134 mg Documented By: MARCIANO Glucose (Glucose Gel 15 Gm Gel..Gram.) 15 gm PO Q15M PRN; Protocol PRN Reason: per Hypoglycemia Standing Ord. Hydralazine HCl (Hydralazine Hcl 10 Mg Tablet) 10 mg PO TID [facility]; Protocol Last Admin: 06/21/25 09:44 Dose: 10 mg Documented By: MARCIANO Loratadine (Loratadine 10 Mg Tablet) 10 mg PO DAILY [facility] Last Admin: 06/21/25 09:44 Dose: 10 mg Documented By: MARCIANO Losartan Potassium (Losartan Potassium 50 Mg Tablet) 50 mg PO BID [facility]; Protocol On Hold: 06/21/25 10:32 Last Admin: 06/21/25 09:43 Dose: 50 mg Documented By: MARCIANO Magnesium Hydroxide (Milk Of Magnesia 30 Ml Oral.Susp) 30 ml PO DAILY PRN PRN Reason: Constipation Melatonin (Melatonin 3 Mg Tablet) 6 mg PO BEDTIME PRN PRN Reason: Insomnia Metoprolol Succinate (Metoprolol Succinate Er 25 Mg Tab.Er.24h) 25 mg PO DAILY [facility]; Protocol Last Admin: 06/21/25 09:44 Dose: 25 mg Documented By: MARCIANO Omeprazole (Omeprazole 20 Mg Capsule.Dr) 20 mg PO DAILY@0630 [facility] Last Admin: 06/21/25 06:07 Dose: 20 mg Documented By: FAUZIA Polyethylene Glycol (Polyethylene Glycol 3350 17 Gm Powd.Pack) 17 gm PO DAILY PRN PRN Reason: Constipation Senna (Sennosides 8.6 Mg Tablet) 8.6 mg PO BID PRN PRN Reason: constipation Sodium Chloride (0.9 % Sodium Chloride Flush 3 Ml Syringe) 3 ml IVFLUSH QSHIFT [facility] Last Admin: 06/21/25 09:44 Dose: 3 ml Documented By: MARCIANO Tamsulosin HCl (Tamsulosin Hcl 0.4 Mg Capsule) 0.4 mg PO DAILY [facility] Last Admin: 06/21/25 09:44 Dose: 0.4 mg Documented By: MARCIANO Venlafaxine HCl (Venlafaxine Hcl Er 75 Mg Cap.Er.24h) 225 mg PO DAILY [facility] Last Admin: 06/21/25 09:43 Dose: 225 mg Documented By: MARCIANO Vitamin D (Cholecalciferol (Vitamin D3) 25 Mcg Tablet) 50 mcg PO DAILY [facility] Last Admin: 06/21/25 09:44 Dose: 50 mcg Documented By: MARCIANO Labs 06/21/25 08:05 06/20/25 04:03 Labs: Laboratory Results - last 24 hr 06/20/25 06/21/25 06/21/25 18:35 01:16 07:18 MCV MCH MCHC RDW Plt Count MPV Absolute Nucleated RBC Nucleated RBC % (auto) POC Glucose 97 80 91 Triglycerides Cholesterol LDL Cholesterol, Calc HDL Cholesterol 06/21/25 08:05 MCV 81.1 MCH 26.7 L MCHC 32.9 RDW 17.8 H Plt Count 196 MPV 11.1 Absolute Nucleated RBC 0.000 Nucleated RBC % (auto) 0.0 POC Glucose Triglycerides 55 Cholesterol 85 LDL Cholesterol, Calc 36 HDL Cholesterol 38 L Assessment and Plan (1) Hypertension: Status: Acute Plan 75-year-old male with a past medical history significant for CKD 3A, AFib on Eliquis, hypertension, CHF, Veronica, history [place], sarcoidosis and TEA on CPAP, who presented to the ED due to altered mental status for the past 3 days. AMS, gait instability, brain mass, rule out CVA confusion resolved, gait instability persists MRI with and without IV contrast to further characterize brain mass per CT recommendation - showing 1.6 cm x 1.9 cm x 9 mm enhancing right CP angle/prepontine meningioma with a small dural tail. There is mild mass effect on the ventral lauryn and mild deviation of basilar artery to the left midline. No additional intracranial lesions seen - discussed results with neuro - no acute intervention required, they recommend outpatient neurosurgical consulttation passed bedside swallow PT rec acute rehab New nodular opacity on chest x-raywith large pleural effusion CT chest with large pleural effusion, and nodular opacity unable to exclude malignancy Hold aspirin and eliquis therapeutic and diagnostic thoracentesis ordered LY on CKD 3 monitor BMP hold diuretics Paroxysmal afib eliqius amiodorone and BB on hold for bradycardia Chronic HFrEF, no acute exacerbation holding diuretics due to LY monitor for fluid overload VERONICA previous admission ascites on imaging, no abdominal pain or distention outpatient follow up with GI Ischemic CM/HFrEF with TR and MR TEA CPAP at bedtime and naps HTN holding metoprolol, furosemide and spironolactone continue losartan and hydralazine Type 2 diabetes hold Jardiance and metformin sliding scale insulin Prolonged QTC chronic on every ekg on file Full code VTE prophylaxis: Travis Last [phone] Quality Stroke Does the patient have a stroke diagnosis?: No VTE Prior VTE?: No VTE Risk Level:: Medical - moderate - high VTE Device Contraindication: Treatment Not Indicated VTE Drug Contraindication: N/A - Med Ordered
[2025-06-21 13:12] LABS: Glucose, Whole Blood 111 mg/dL (60-115)
[2025-06-21 14:53] LABS: Total Protein 6.4 g/dL (6.5-8.0)
[2025-06-21 18:29] LABS: Glucose, Whole Blood 117 mg/dL (60-115)
[2025-06-21] MEDS: buPROPion HCl XL 150 MG TAB.ER.24H PO (20:45)
[2025-06-22] VITALS (8 sets, daily range): BP systolic 133–162; BP diastolic 72–99; PULSE 50–71; RESP 16–20; TEMP 36–36.4; O2SAT 93–98
[2025-06-22 02:22] LABS: Glucose, Whole Blood 101 mg/dL (60-115)
[2025-06-22 07:06] LABS: Hematocrit 39.0 % (42.0-52.0); Hemoglobin 12.8 g/dl (14.0-18.0); Mean Corpuscular HGB Conc 32.8 g/dl (31.0-36.0); Mean Corpuscular Hemoglobin 27.1 pg (27.0-33.0); Mean Corpuscular Volume 82.5 fL (80.0-98.0); NRBC Abs Auto 0.000 X10*3/uL (0.0-0.012); NRBC Pct Auto 0.0 /100WBC (0.0-0.2); Platelet Count 221 X10*3/uL (160-400); Red Blood Count 4.73 X10*6/uL (4.60-5.80); White Blood Count 7.2 X10*3/uL (4.8-10.8)
[2025-06-22 08:19] LABS: Glucose, Whole Blood 99 mg/dL (60-115)
[2025-06-22] MEDS: Metoprolol Succinate ER 25 MG TAB.ER.24H PO (08:37)
[2025-06-22] MEDS: Venlafaxine HCl ER 75 MG CAP.ER.24H 225 MG PO (08:37)
[2025-06-22] MEDS: 0.9 % Sodium Chloride Flush 3 ML SYRINGE IVFLUSH ×3 (08:38→20:13)
--- NOTE | 2025-06-22 09:21 | HO.PM.IMPN ---
Subjective Subjective Date of Service: 06/22/25 Review of Systems Follow up ataxia, speech difficulties no pain or discomfort Physical Exam Exam: Exam: Appearing in no acute distress lung sounds are clear to auscultation heart regular rate rhythm, clear S1, S2 positive bowel sounds, abdomen is soft, nontender neuro patient is alert x3, no focal deficits Vital Signs: Vital Signs: Last Vital Signs Temp 97.2 F 06/22/25 08:00 Pulse 54 06/22/25 08:00 Resp 20 06/22/25 08:00 BP 148/99 H 06/22/25 08:00 Pulse Ox 97 06/22/25 08:00 O2 Del Method BiPAP 06/22/25 08:00 BMI result Body Mass Index 26.8 Objective Data Active Medications Acetaminophen (Acetaminophen 325 Mg Tablet) 650 mg PO Q6H PRN PRN Reason: Pain, Mild 1-3,fever,headache Last Admin: 06/22/25 06:23 Dose: 650 mg Documented By: FAUZIA Albuterol Sulfate (Albuterol Sulfate 90 Mcg 8 Gm Inhaler) 2 puff INHALE Q4H PRN PRN Reason: Shortness Of Breath Or Wheezing Amiodarone HCl (Amiodarone Hcl 200 Mg Tablet) 200 mg PO BID [facility] Last Admin: 06/22/25 07:37 Dose: Not Given Documented By: MARCIANO Non-Admin Reason: Physician Held Med Apixaban (Apixaban 5 Mg Tablet) 5 mg PO BID [facility] On Hold: 06/21/25 13:21 Last Admin: 06/21/25 09:44 Dose: 5 mg Documented By: MARCIANO Aspirin (Aspirin 81 Mg Tab.Chew) 81 mg PO DAILY [facility] On Hold: 06/21/25 13:21 Last Admin: 06/21/25 09:42 Dose: 81 mg Documented By: MARCIANO Atorvastatin Calcium (Atorvastatin Calcium 40 Mg Tablet) 40 mg PO DAILY [facility] Last Admin: 06/22/25 08:37 Dose: 40 mg Documented By: MARCIANO Bupropion HCl (Bupropion Hcl Xl 150 Mg Tab.Er.24h) 150 mg PO BEDTIME [facility] Last Admin: 06/21/25 20:45 Dose: 150 mg Documented By: FAUZIA Calcium Carbonate (Calcium Carbonate 750 Mg Tab.Chew) 750 mg PO Q4H PRN PRN Reason: Heartburn Calcium Carbonate (Calcium Carbonate 750 Mg Tab.Chew) 300 mg PO Q4H PRN PRN Reason: Heartburn Dextrose (Dextrose 50 % 25 Gm/50 Ml Syringe) 25 gm IVPUSH Q15M PRN; Protocol PRN Reason: per Hypoglycemia Standing Ord. Famotidine (Famotidine 20 Mg Tablet) 20 mg PO DAILY [facility] Last Admin: 06/22/25 08:37 Dose: 20 mg Documented By: MARCIANO Fenofibrate (Fenofibrate,Micronized 134 Mg Capsule) 134 mg PO DAILY [facility] Last Admin: 06/22/25 08:37 Dose: 134 mg Documented By: MARCIANO Glucose (Glucose Gel 15 Gm Gel..Gram.) 15 gm PO Q15M PRN; Protocol PRN Reason: per Hypoglycemia Standing Ord. Hydralazine HCl (Hydralazine Hcl 10 Mg Tablet) 10 mg PO TID [facility]; Protocol Last Admin: 06/22/25 08:37 Dose: 10 mg Documented By: MARCIANO Loratadine (Loratadine 10 Mg Tablet) 10 mg PO DAILY [facility] Last Admin: 06/22/25 08:37 Dose: 10 mg Documented By: MARCIANO Losartan Potassium (Losartan Potassium 50 Mg Tablet) 50 mg PO BID [facility]; Protocol On Hold: 06/21/25 10:32 Last Admin: 06/21/25 09:43 Dose: 50 mg Documented By: MARCIANO Magnesium Hydroxide (Milk Of Magnesia 30 Ml Oral.Susp) 30 ml PO DAILY PRN PRN Reason: Constipation Melatonin (Melatonin 3 Mg Tablet) 6 mg PO BEDTIME PRN PRN Reason: Insomnia Metoprolol Succinate (Metoprolol Succinate Er 25 Mg Tab.Er.24h) 25 mg PO DAILY [facility]; Protocol Last Admin: 06/22/25 08:37 Dose: 25 mg Documented By: MARCIANO Omeprazole (Omeprazole 20 Mg Capsule.Dr) 20 mg PO DAILY@0630 [facility] Last Admin: 06/22/25 06:21 Dose: 20 mg Documented By: FAUZIA Polyethylene Glycol (Polyethylene Glycol 3350 17 Gm Powd.Pack) 17 gm PO DAILY PRN PRN Reason: Constipation Senna (Sennosides 8.6 Mg Tablet) 8.6 mg PO BID PRN PRN Reason: constipation Sodium Chloride (0.9 % Sodium Chloride Flush 3 Ml Syringe) 3 ml IVFLUSH QSHIFT [facility] Last Admin: 06/22/25 08:38 Dose: 3 ml Documented By: MARCIANO Tamsulosin HCl (Tamsulosin Hcl 0.4 Mg Capsule) 0.4 mg PO DAILY [facility] Last Admin: 06/22/25 08:36 Dose: 0.4 mg Documented By: MARCIANO Venlafaxine HCl (Venlafaxine Hcl Er 75 Mg Cap.Er.24h) 225 mg PO DAILY [facility] Last Admin: 06/22/25 08:37 Dose: 225 mg Documented By: MARCIANO Vitamin D (Cholecalciferol (Vitamin D3) 25 Mcg Tablet) 50 mcg PO DAILY [facility] Last Admin: 06/22/25 08:37 Dose: 50 mcg Documented By: MARCIANO Labs 06/22/25 06:33 06/21/25 14:00 Labs: Laboratory Results - last 24 hr 06/21/25 06/21/25 06/21/25 13:07 14:00 18:24 MCV MCH MCHC RDW Plt Count MPV Absolute Nucleated RBC Nucleated RBC % (auto) POC Glucose 111 117 H Random Glucose 125 H Lactate Dehydrogenase 233 Total Protein 6.4 L 06/22/25 06/22/25 06/22/25 02:18 06:33 07:47 MCV 82.5 MCH 27.1 MCHC 32.8 RDW 18.2 H Plt Count 221 MPV 11.3 Absolute Nucleated RBC 0.000 Nucleated RBC % (auto) 0.0 POC Glucose 101 99 Random Glucose Lactate Dehydrogenase Total Protein Assessment and Plan (1) Hypertension: Status: Acute Plan 75-year-old male with a past medical history significant for CKD 3A, AFib on Eliquis, hypertension, CHF, [place], history [place], sarcoidosis and TEA on CPAP, who presented to the ED due to altered mental status for 3 days. 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 There is mild mass effect on the ventral lauryn and mild deviation of basilar artery to the left midline. No additional intracranial lesions seen discussed results with neuro - no acute intervention required, they recommend outpatient PT rec acute rehab New nodular opacity on chest x-raywith large pleural effusion CT chest with large pleural effusion, and nodular opacity unable to exclude malignancy Hold aspirin and eliquis therapeutic and diagnostic thoracentesis ordered LY on CKD 3 monitor BMP hold diuretics Paroxysmal afib eliqius amiodorone and BB on hold for bradycardia HR 40-50 Chronic HFrEF, no acute exacerbation holding diuretics due to LY monitor for fluid overload VERONICA previous admission ascites on imaging, no abdominal pain or distention outpatient follow up with GI Ischemic CM/HFrEF 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
[2025-06-22] MEDS: oxyCODONE HCl Immed Release 5 MG TABLET PO (09:38)
--- NOTE | 2025-06-22 18:20 | PM.CNPUL ---
History of Present Illness History of Present Illness Consult date: 06/22/25 Chief complaint: AMS Narrative: This is an inpatient pulmonary consultation. The patient is a 75-year-old male with a past medical history significant for CKD 3A, AFib on Eliquis, hypertension, CHF, [place], history [place], sarcoidosis and TEA on CPAP, who presented to the ED due to altered mental status for the past 3 days. It was noted that the patient fell over a week ago and saw his PCP 1 week ago for this but was at his baseline. The patient fell getting out of the shower onto his buttocks, no known head strike however fall was not witnessed. He has had increased confusion gait instability, drowsiness and difficulties with his speech for the past 3 days, notably at nighttime. Per chart review the patient has a known brain mass. He has no official diagnosis of dementia. The patient reported to the ED provider that he has been having migraines for the past 3 nights and also has had new visual hallucinations starting this summer. While in the hospital he did have a CT scan of the chest that I personally reviewed demonstrating a moderate-size right-sided pleural effusion. On further questioning he has never had fluid taken out of the chest before. The patient does carry a diagnosed sarcoidosis and will have to get additional information regarding the diagnosis. Review of Systems Review of Systems: Yes all other systems are reviewed and are negative Constitutional: Constitutional: Reports as per HPI, Reports no additional constitutional complaints and Reports headache(s) Eyes: Eyes: Reports as per HPI and Denies no additional eye complaints ENT: Reports as per HPI, Reports headache(s) and Reports hearing loss Cardiovascular: Cardiovascular: Reports as per HPI, Reports no additional cardiovascular complaints, Denies acrocyanosis, Denies cool extremities, Denies chest pain, Denies leg edema, Denies lightheadedness, Denies palpitations and Denies dyspnea Respiratory: Respiratory: Reports as per HPI, Denies no additional respiratory complaints and Denies dyspnea Gastrointestinal: Gastrointestinal: Reports as per HPI and Denies no additional gastrointestinal complaints Genitourinary: Genitourinary: Reports no additional male genitourinary complaints and Reports as per HPI Musculoskeletal: Musculoskeletal: Reports as per HPI and Reports abnormal gait Integumentary/Breasts: Skin/Breast: Reports system reviewed and no additional complaints, except as docu Neurologic: Reports system reviewed and no additional complaints, except as documented, Reports as per HPI, Reports abnormal gait and Reports headache(s) Psychiatric: Psychiatric: Reports no additional psychiatric complaints and Reports as per HPI Endocrine: Endocrine: Reports no additional endocrine complaints, Reports as per HPI and Denies palpitations Hematologic/Lymphatic: Hematologic/Lymphatic: Reports no additional hematologic/lymphatic complaints and Reports as per HPI Allergic/Immunologic: Allergic/Immunologic: Reports no additional allergic/immunologic complaints and Reports as per HPI [facility] Past Medical History Medical History (Updated 06/22/25 @ 18:27 by Chester Russell MD) Pleural effusion Hypertension Constipation Gallstone Depression Visual hallucination Myocardial infarct CAD (coronary artery disease) History of cardioversion Diabetes 1.5, managed as type 2 BPH (benign prostatic hyperplasia) Shock liver [place] (nonalcoholic steatohepatitis) History of alcohol abuse Essential hypertension A-fib Mass, brain Sarcoidosis GERD (gastroesophageal reflux disease) Hyperlipidemia Type 2 diabetes mellitus CHF (congestive heart failure) Surgical History Surgical History H/O heart artery stent Social History Social History Household Members: Family Household Members Other:: Son and daughter in law Housing: Apartment Do you presently have visiting nurse or other home services: No Comment: refuse camera in room Patient Tobacco Use Status: Never used Tobacco Tobacco use type: Cigarette e-Cigarette/Vaping Use: Never Used Second Hand Smoke Exposure: No service: No Current occupational status: retired Cognitive needs: No Hearing needs: Yes Vision needs: Yes Meds Allergies Allergy/AdvReac Type Severity Reaction Status Date / Time erythromycin base AdvReac Unknown Verified 06/19/25 17:15 lisinopril AdvReac Unknown Verified 06/19/25 17:15 Penicillins AdvReac Unknown Verified 06/19/25 17:15 Active Medications: Current Medications Acetaminophen (Acetaminophen 325 Mg Tablet) 650 mg PO Q6H PRN PRN Reason: Pain, Mild 1-3,fever,headache Last Admin: 06/22/25 06:23 Dose: 650 mg Albuterol Sulfate (Albuterol Sulfate 90 Mcg 8 Gm Inhaler) 2 puff INHALE Q4H PRN PRN Reason: Shortness Of Breath Or Wheezing Amiodarone HCl (Amiodarone Hcl 200 Mg Tablet) 200 mg PO BID [facility] On Hold: 06/22/25 16:16 Last Admin: 06/22/25 07:37 Dose: Not Given Apixaban (Apixaban 5 Mg Tablet) 5 mg PO BID [facility] On Hold: 06/21/25 13:21 Last Admin: 06/21/25 09:44 Dose: 5 mg Aspirin (Aspirin 81 Mg Tab.Chew) 81 mg PO DAILY [facility] On Hold: 06/21/25 13:21 Last Admin: 06/21/25 09:42 Dose: 81 mg Atorvastatin Calcium (Atorvastatin Calcium 40 Mg Tablet) 40 mg PO DAILY [facility] Last Admin: 06/22/25 08:37 Dose: 40 mg Bupropion HCl (Bupropion Hcl Xl 150 Mg Tab.Er.24h) 150 mg PO BEDTIME [facility] Last Admin: 06/21/25 20:45 Dose: 150 mg Calcium Carbonate (Calcium Carbonate 750 Mg Tab.Chew) 750 mg PO Q4H PRN PRN Reason: Heartburn Calcium Carbonate (Calcium Carbonate 750 Mg Tab.Chew) 300 mg PO Q4H PRN PRN Reason: Heartburn Dextrose (Dextrose 50 % 25 Gm/50 Ml Syringe) 25 gm IVPUSH Q15M PRN; Protocol PRN Reason: per Hypoglycemia Standing Ord. Famotidine (Famotidine 20 Mg Tablet) 20 mg PO DAILY [facility] Last Admin: 06/22/25 08:37 Dose: 20 mg Fenofibrate (Fenofibrate,Micronized 134 Mg Capsule) 134 mg PO DAILY [facility] Last Admin: 06/22/25 08:37 Dose: 134 mg Glucose (Glucose Gel 15 Gm Gel..Gram.) 15 gm PO Q15M PRN; Protocol PRN Reason: per Hypoglycemia Standing Ord. Hydralazine HCl (Hydralazine Hcl 10 Mg Tablet) 10 mg PO TID [facility]; Protocol Last Admin: 06/22/25 15:00 Dose: 10 mg Loratadine (Loratadine 10 Mg Tablet) 10 mg PO DAILY [facility] Last Admin: 06/22/25 08:37 Dose: 10 mg Losartan Potassium (Losartan Potassium 50 Mg Tablet) 50 mg PO BID [facility]; Protocol On Hold: 06/21/25 10:32 Last Admin: 06/21/25 09:43 Dose: 50 mg Magnesium Hydroxide (Milk Of Magnesia 30 Ml Oral.Susp) 30 ml PO DAILY PRN PRN Reason: Constipation Melatonin (Melatonin 3 Mg Tablet) 6 mg PO BEDTIME PRN PRN Reason: Insomnia Metoprolol Succinate (Metoprolol Succinate Er 25 Mg Tab.Er.24h) 25 mg PO DAILY [facility]; Protocol On Hold: 06/22/25 16:16 Last Admin: 06/22/25 08:37 Dose: 25 mg Morphine Sulfate (Morphine Sulfate 4 Mg/Ml Cartridge) 2 mg IVPUSH Q4H PRN; Protocol PRN Reason: Pain, Severe (Pain Scale 7-10) Last Admin: 06/22/25 13:55 Dose: 2 mg Omeprazole (Omeprazole 20 Mg Capsule.Dr) 20 mg PO DAILY@0630 [facility] Last Admin: 06/22/25 06:21 Dose: 20 mg Oxycodone HCl (Oxycodone Hcl Immed Release 5 Mg Tablet) 5 mg PO Q4H PRN PRN Reason: Pain, Moderate(Pain Scale 4-6) Last Admin: 06/22/25 09:38 Dose: 5 mg Polyethylene Glycol (Polyethylene Glycol 3350 17 Gm Powd.Pack) 17 gm PO DAILY PRN PRN Reason: Constipation Senna (Sennosides 8.6 Mg Tablet) 8.6 mg PO BID PRN PRN Reason: constipation Sodium Chloride (0.9 % Sodium Chloride Flush 3 Ml Syringe) 3 ml IVFLUSH QSHIFT [facility] Last Admin: 06/22/25 16:29 Dose: 3 ml Tamsulosin HCl (Tamsulosin Hcl 0.4 Mg Capsule) 0.4 mg PO DAILY [facility] Last Admin: 06/22/25 08:36 Dose: 0.4 mg Venlafaxine HCl (Venlafaxine Hcl Er 75 Mg Cap.Er.24h) 225 mg PO DAILY [facility] Last Admin: 06/22/25 08:37 Dose: 225 mg Vitamin D (Cholecalciferol (Vitamin D3) 25 Mcg Tablet) 50 mcg PO DAILY [facility] Last Admin: 06/22/25 08:37 Dose: 50 mcg Home Medications ?Medication ?Instructions ?Recorded ?Confirmed ?Last Taken ?Type amiodarone 200 mg tablet 200 mg PO BID 05/15/25 06/19/25 06/18/25 History potassium chloride 20 mEq 20 meq PO DAILY 06/11/25 06/19/25 06/18/25 History tablet,extended release(part/cryst) bupropion HCl 150 mg tablet,12 hr 150 mg PO BEDTIME 10/06/19/25 06/18/25 History sustained-release (Wellbutrin SR) calcium carbonate (Antacid Ext Str 1 tab PO Q4H PRN Heartburn 06/19/25 06/19/25 06/18/25 History (calcium carb)) cetirizine 10 mg tablet 10 mg PO DAILY 06/19/25 06/19/25 06/18/25 History famotidine 20 mg tablet 20 mg PO DAILY 06/19/25 06/19/25 06/18/25 History fenofibrate micronized 130 mg 130 mg PO DAILY 06/19/25 06/19/25 06/18/25 History capsule hydralazine 10 mg tablet 10 mg PO TID BP Over 160/90 06/19/25 06/19/25 06/19/25 History losartan 50 mg tablet 50 mg PO BID 06/19/25 06/19/25 06/18/25 History metformin 500 mg tablet,extended 1,000 mg PO DAILY 06/19/25 06/19/25 06/18/25 History release 24 hr metoprolol succinate 50 mg 50 mg PO DAILY 06/19/25 06/19/25 06/18/25 History tablet,extended release 24 hr omeprazole 20 mg tablet,delayed 20 mg PO DAILY@0630 06/19/25 06/19/25 06/18/25 History release polyethylene glycol 3350 17 gram 17 g PO DAILY PRN Constipation 06/19/25 06/19/25 Unknown History oral powder packet spironolactone 25 mg tablet 25 mg PO BID 06/19/25 06/19/25 06/18/25 History Physical Exam Vital Signs: Vital Signs: Last Vital Signs Temp 97.1 F 06/22/25 15:50 Pulse 50 06/22/25 15:50 Resp 20 06/22/25 15:50 BP 144/90 H 06/22/25 15:50 Pulse Ox 94 06/22/25 15:50 O2 Del Method BiPAP 06/22/25 15:50 BMI result Body Mass Index 26.8 Const: General: comfortable and no acute distress HEENT: Other: Unremarkable Head: Yes normocephalic Neck: Neck: Yes normal visual inspection Chest: Chest palpation & inspection: normal inspection of the chest Resp: Effort & Inspection: normal respiratory effort Auscultation: diminished lung sounds Cardio: Heart sounds: S1 normal heart sound present and S2 normal heart sound present GI: Palpation (GI): Soft to palpation Back/Spine/Pelvis: Other: unremarkable Skin: General skin exam: no rashes or lesions noted Extrem: General: Yes normal to inspection Results Laboratory Findings 06/22/25 06:33 06/21/25 14:00 Abnormal lab findings: Abnormal Labs 06/19/25 06/19/25 06/19/25 17:34 17:35 19:40 Hgb 13.3 L Hct 40.5 L MCH 26.9 L RDW 17.3 H [place] % (Auto) 12.2 H Chloride 95 L Creatinine 1.49 H POC Glucose Random Glucose Total Bilirubin 1.9 H Direct Bilirubin 1.2 H Total Protein HDL Cholesterol TSH 5.45 H Urine Glucose (UA) 250 H 06/20/25 06/21/25 06/21/25 04:03 08:05 14:00 Hgb 12.7 L 12.4 L Hct 38.8 L 37.7 L MCH 26.8 L 26.7 L RDW 17.5 H 17.8 H [place] % (Auto) Chloride Creatinine 1.42 H POC Glucose Random Glucose 125 H Total Bilirubin Direct Bilirubin Total Protein 6.4 L HDL Cholesterol 38 L TSH Urine Glucose (UA) 06/21/25 06/22/25 18:24 06:33 Hgb 12.8 L Hct 39.0 L MCH RDW 18.2 H [place] % (Auto) Chloride Creatinine POC Glucose 117 H Random Glucose Total Bilirubin Direct Bilirubin Total Protein HDL Cholesterol TSH Urine Glucose (UA) Assessment and Plan (1) Pleural effusion: Status: Acute (2) TEA (obstructive sleep apnea): Status: Acute (3) Dyspnea: Qualifiers: Dyspnea type: dyspnea on exertion Qualified Code(s): R06.09 - Other forms of dyspnea Status: Acute (4) Sarcoidosis: Status: Acute Plan The patient is presenting with a right-sided moderate effusion. Indeed this could be related to his underlying ascites resulting in hepatic hydrothorax. Unlikely related to his history of sarcoidosis. Does not appear to have any active disease at this time based on his CAT scan although can not completely rule out. Will request blood work. Parapneumonic process is possible, but WBC is normal and no pleurisy. Malignant effusion is in the differential. Recommendations: Diagnostic and therapeutic ultrasound-guided thoracentesis to be done by Interventional Radiology, appears to be already ordered Continue with PAP therapy at nighttime Requesting blood gas, venous to assess for any evidence of any hypercarbia Once the patient undergoes uses additional imaging may be helpful to better visualize the lung and if any other abnormalities are noted with it. Would recommend repeating the CT chest once the effusion has been cleared. Procedures Date of Service Date of Service: 06/22/25
[2025-06-22] MEDS: buPROPion HCl XL 150 MG TAB.ER.24H PO (20:12)
[2025-06-22 20:39] LABS: Glucose, Whole Blood 129 mg/dL (60-115)
[2025-06-22 23:43] LABS: Glucose, Whole Blood 97 mg/dL (60-115)
[2025-06-23] VITALS (12 sets, daily range): BP systolic 138–153; BP diastolic 82–102; PULSE 52–92; RESP 13–23; TEMP 36.2–36.6; O2SAT 93–96
[2025-06-23 04:37] LABS: Glucose, Whole Blood 95 mg/dL (60-115)
[2025-06-23 07:15] LABS: Venous Blood Gas Refer to POC result
[2025-06-23 07:15] LABS: VBG HCO3 26 mmol/L (22-26)
[2025-06-23] MEDS: Venlafaxine HCl ER 75 MG CAP.ER.24H 225 MG PO (10:24)
[2025-06-23] MEDS: 0.9 % Sodium Chloride Flush 3 ML SYRINGE IVFLUSH ×3 (10:28→21:14)
[2025-06-23 10:56] LABS: Glucose, Whole Blood 166 mg/dL (60-115)
--- NOTE | 2025-06-23 11:12 | HO.PM.IMPN ---
Subjective Subjective Date of Service: 06/23/25 Review of Systems Follow up ataxia, speech difficulties no pain or discomfort Physical Exam Exam: Exam: Appearing in no acute distress lung sounds are clear to auscultation heart regular rate rhythm, clear S1, S2 positive bowel sounds, abdomen is soft, nontender neuro patient is alert x3, no focal deficits Vital Signs: Vital Signs: Last Vital Signs Temp 97.9 F 06/23/25 11:08 Pulse 55 06/23/25 11:08 Resp 20 06/23/25 11:08 BP 138/93 H 06/23/25 11:08 Pulse Ox 96 06/23/25 11:08 O2 Del Method Room Air 06/23/25 11:08 BMI result Body Mass Index 26.8 Objective Data Active Medications Acetaminophen (Acetaminophen 325 Mg Tablet) 650 mg PO Q6H PRN PRN Reason: Pain, Mild 1-3,fever,headache Last Admin: 06/22/25 06:23 Dose: 650 mg Documented By: FAUZIA Albuterol Sulfate (Albuterol Sulfate 90 Mcg 8 Gm Inhaler) 2 puff INHALE Q4H PRN PRN Reason: Shortness Of Breath Or Wheezing Amiodarone HCl (Amiodarone Hcl 200 Mg Tablet) 200 mg PO BID PRUDENCIO On Hold: 06/22/25 16:16 Last Admin: 06/22/25 07:37 Dose: Not Given Documented By: MARCIANO Non-Admin Reason: Physician Held Med Apixaban (Apixaban 5 Mg Tablet) 5 mg PO BID PRUDENCIO On Hold: 06/21/25 13:21 Last Admin: 06/21/25 09:44 Dose: 5 mg Documented By: MARCIANO Aspirin (Aspirin 81 Mg Tab.Chew) 81 mg PO DAILY PRUDENCIO On Hold: 06/21/25 13:21 Last Admin: 06/21/25 09:42 Dose: 81 mg Documented By: MARCIANO Atorvastatin Calcium (Atorvastatin Calcium 40 Mg Tablet) 40 mg PO DAILY [facility] Last Admin: 06/23/25 10:25 Dose: 40 mg Documented By: LUCAS Bupropion HCl (Bupropion Hcl Xl 150 Mg Tab.Er.24h) 150 mg PO BEDTIME [facility] Last Admin: 06/22/25 20:12 Dose: 150 mg Documented By: NONA Calcium Carbonate (Calcium Carbonate 750 Mg Tab.Chew) 750 mg PO Q4H PRN PRN Reason: Heartburn Calcium Carbonate (Calcium Carbonate 750 Mg Tab.Chew) 300 mg PO Q4H PRN PRN Reason: Heartburn Dextrose (Dextrose 50 % 25 Gm/50 Ml Syringe) 25 gm IVPUSH Q15M PRN; Protocol PRN Reason: per Hypoglycemia Standing Ord. Famotidine (Famotidine 20 Mg Tablet) 20 mg PO DAILY [facility] Last Admin: 06/23/25 10:26 Dose: 20 mg Documented By: LUCAS Fenofibrate (Fenofibrate,Micronized 134 Mg Capsule) 134 mg PO DAILY [facility] Last Admin: 06/23/25 10:25 Dose: 134 mg Documented By: LUCAS Glucose (Glucose Gel 15 Gm Gel..Gram.) 15 gm PO Q15M PRN; Protocol PRN Reason: per Hypoglycemia Standing Ord. Hydralazine HCl (Hydralazine Hcl 10 Mg Tablet) 10 mg PO TID [facility]; Protocol Last Admin: 06/23/25 10:24 Dose: 10 mg Documented By: LUCAS Loratadine (Loratadine 10 Mg Tablet) 10 mg PO DAILY [facility] Last Admin: 06/23/25 10:26 Dose: 10 mg Documented By: LUCAS Losartan Potassium (Losartan Potassium 50 Mg Tablet) 50 mg PO BID [facility]; Protocol On Hold: 06/21/25 10:32 Last Admin: 06/21/25 09:43 Dose: 50 mg Documented By: MARCIANO Magnesium Hydroxide (Milk Of Magnesia 30 Ml Oral.Susp) 30 ml PO DAILY PRN PRN Reason: Constipation Melatonin (Melatonin 3 Mg Tablet) 6 mg PO BEDTIME PRN PRN Reason: Insomnia Metoprolol Succinate (Metoprolol Succinate Er 25 Mg Tab.Er.24h) 25 mg PO DAILY [facility]; Protocol On Hold: 06/22/25 16:16 Last Admin: 06/22/25 08:37 Dose: 25 mg Documented By: MARCIANO Morphine Sulfate (Morphine Sulfate 4 Mg/Ml Cartridge) 2 mg IVPUSH Q4H PRN; Protocol PRN Reason: Pain, Severe (Pain Scale 7-10) Last Admin: 06/22/25 13:55 Dose: 2 mg Documented By: MARCIANO Omeprazole (Omeprazole 20 Mg Alanis.) 20 mg PO DAILY@0630 [facility] Last Admin: 06/23/25 06:25 Dose: 20 mg Documented By: NONA Oxycodone HCl (Oxycodone Hcl Immed Release 5 Mg Tablet) 5 mg PO Q4H PRN PRN Reason: Pain, Moderate(Pain Scale 4-6) Last Admin: 06/22/25 09:38 Dose: 5 mg Documented By: MARCIANO Comments: per patient request Polyethylene Glycol (Polyethylene Glycol 3350 17 Gm Powd.Pack) 17 gm PO DAILY PRN PRN Reason: Constipation Senna (Sennosides 8.6 Mg Tablet) 8.6 mg PO BID PRN PRN Reason: constipation Sodium Chloride (0.9 % Sodium Chloride Flush 3 Ml Syringe) 3 ml IVFLUSH QSHIFT [facility] Last Admin: 06/23/25 10:28 Dose: 3 ml Documented By: LUCAS Tamsulosin HCl (Tamsulosin Hcl 0.4 Mg Capsule) 0.4 mg PO DAILY [facility] Last Admin: 06/23/25 10:25 Dose: 0.4 mg Documented By: LUCAS Venlafaxine HCl (Venlafaxine Hcl Er 75 Mg Cap.Er.24h) 225 mg PO DAILY [facility] Last Admin: 06/23/25 10:24 Dose: 225 mg Documented By: LUCAS Vitamin D (Cholecalciferol (Vitamin D3) 25 Mcg Tablet) 50 mcg PO DAILY [facility] Last Admin: 06/23/25 10:26 Dose: 50 mcg Documented By: LUCAS Labs 06/22/25 06:33 06/23/25 11:20 Labs: Laboratory Results - last 24 hr 06/22/25 06/22/25 06/23/25 19:54 23:40 04:33 VBG pH VBG pCO2 VBG pO2 VBG HCO3 VBG O2 Saturation VBG Base Excess POC Glucose 129 H 97 95 06/23/25 06/23/25 07:06 10:45 VBG pH 7.41 VBG pCO2 40 VBG pO2 198 VBG HCO3 26 VBG O2 Saturation TNP VBG Base Excess 1.6 POC Glucose 166 H Assessment and Plan (1) Hypertension: Status: Acute Plan 75-year-old male with a past medical history significant for CKD 3A, AFib on Eliquis, hypertension, CHF, Veronica, history [place], sarcoidosis and TEA on CPAP, who presented to the ED due to altered mental status for 3 days. 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 There is mild mass effect on the ventral lauryn and mild deviation of basilar artery to the left midline. No additional intracranial lesions seen (Known to patient) discussed results with neuro>no acute intervention required, recommend outpatient follow up with neuro surgery PT STR New nodular opacity on chest x-ray with large pleural effusion nodule known to patient but effusion much larger therapeutic and diagnostic thoracentesis today>1.5 liters removed, sent for cytology and cx resume asa and eliquis this evening LY on CKD 3, creat trending down monitor BMP continue to hold diuretics for now Paroxysmal afib eliqius resume amiodorone BB still on hold for now HR 40-50 Chronic HFrEF, no acute exacerbation holding diuretics due to LY monitor for fluid overload VERONICA previous admission ascites on imaging, no abdominal pain or distention outpatient follow up with GI Ischemic CM/HFrEF with TR and MR TEA CPAP at bedtime and naps HTN hold furosemide and spironolactone due to LY continue losartan and hydralazine Type 2 diabetes hold Jardiance and metformin sliding scale insulin Prolonged QTC chronic on every ekg on file Full code VTE prophylaxis: Travis Last [phone] awaiting bed placement Quality Stroke Does the patient have a stroke diagnosis?: No VTE Prior VTE?: No VTE Risk Level:: Medical - moderate - high VTE Device Contraindication: Treatment Not Indicated VTE Drug Contraindication: N/A - Med Ordered
[2025-06-23 11:39] LABS: Anion Gap 11 (12-20); Blood Urea Nitrogen 16 mg/dL (9-16); Calcium 9.9 mg/dL (8.4-10.2); Carbon Dioxide 27 mmol/L (22-29); Chloride 105 mmol/L (96-108); Creatinine Clr Calc Pharmacy 58.2; Estimated Glomerular Filt Rate 58; Potassium 4.6 mmol/L (3.3-5.1); Sodium 138 mmol/L (135-145)
[2025-06-23] MEDS: oxyCODONE HCl Immed Release 5 MG TABLET PO (12:30)
[2025-06-23] MEDS: Lidocaine HCl 1 % MPF 5 ML VIAL SUBCUT (12:38)
[2025-06-23 13:01] LABS: MN% 94.3 %; PMN% 5.7 %; WBC Pleural Fluid 0.525 X10*3/uL
[2025-06-23 13:32] LABS: BF Shift QC OK YES; Lymphocytes Pleural Fluid 18 %; Monocytes Pleural Fluid 1 %; Neutrophils Pleural Fluid 4 %; Other Cells Plerual Fl 77 %
--- NOTE | 2025-06-23 14:29 | MHC.CM.PN ---
Pt. was not accepted at [facility], CM met with pt and son to discuss STR, referrals out to SNF's near [facility].
[2025-06-23 16:20] LABS: Glucose, Whole Blood 118 mg/dL (60-115)
[2025-06-23 20:32] LABS: Glucose, Whole Blood 146 mg/dL (60-115)
[2025-06-23] MEDS: buPROPion HCl XL 150 MG TAB.ER.24H PO (21:14)
[2025-06-24 03:03] VITALS: BP 153/89; PULSE 54; RESP 18; TEMP 36.2; O2SAT 96
[2025-06-24 05:05] LABS: Glucose, Whole Blood 94 mg/dL (60-115)
[2025-06-24 07:33] VITALS: BP 156/93; PULSE 55; RESP 20; TEMP 36.4; O2SAT 97
[2025-06-24] MEDS: Venlafaxine HCl ER 75 MG CAP.ER.24H 225 MG PO (09:35)
[2025-06-24 09:36] VITALS: BP 156/93
[2025-06-24] MEDS: 0.9 % Sodium Chloride Flush 3 ML SYRINGE IVFLUSH (09:36)
[2025-06-24 10:59] LABS: Glucose, Whole Blood 131 mg/dL (60-115)
[2025-06-24 11:03] VITALS: BP 135/78; PULSE 60; RESP 18; TEMP 36.7; O2SAT 98
--- NOTE | 2025-06-24 11:09 | PM.DS ---
DS: Providers Provider Date of Service: 06/24/25 <Rose Russell NP - Last Filed: 06/24/25 14:41> Date of admission: 06/20/25 00:55 <Rose Russell NP - Last Filed: 06/24/25 14:41> Date of discharge: 06/24/25 <Rose Russell NP - Last Filed: 06/24/25 14:41> Primary care physician: James Boyle MD <Rose Russell NP - Last Filed: 06/24/25 14:41> Consults: 06/19/25 23:34 Consult to Neurology Stat Consulting Provider: [facility] Reason for consultation: ataxia 06/20/25 01:03 Consult to Neurology Routine Consulting Provider: [facility] Reason for consultation: gait issues, expressive aphasia, confusion, knonw brain mass, ?CVA Has provider been notified: Yes 06/20/25 14:30 Consult to Pulmonology Routine Consulting Provider: [facility] Reason for consultation: pulm nodule cant r/o malignany with large pleural effusion Has provider been notified: No <Rose Russell NP - Last Filed: 06/24/25 14:41> DS: Diagnosis Discharge Diagnosis (1) Hypertension: Status: Acute <Rose Russell NP - Last Filed: 06/24/25 14:41> (2) Cirrhosis: Status: Acute <Rose Russell NP - Last Filed: 06/24/25 14:41> (3) Mass, brain: Status: Acute <Rose Russell NP - Last Filed: 06/24/25 14:41> DS: Summary Hospital Course Hospital Course: History and physical as per admitting provider. Patient is a 75-year-old male with a past medical history significant for CKD 3A, AFib on Eliquis, hypertension, CHF, [place], history [place], sarcoidosis and TEA on CPAP, who presented to the ED due to altered mental status for the past 3 days. It was noted that the patient fell over a week ago and saw his PCP 1 week ago for this but was at his baseline. The patient fell getting out of the shower onto his buttocks, no known head strike however fall was not witnessed. He has had increased confusion gait instability, drowsiness and difficulties with his speech for the past 3 days, notably at nighttime. Per chart review the patient has a known brain mass. He has no official diagnosis of dementia. The patient reported to the ED provider that he has been having migraines for the past 3 nights and also has had new visual hallucinations starting this summer. He reports seeing people in the room which are not there, the son has confirmed this. At this time the patient is sleeping, unable to provide a history. He will for a brief period of time when his name is called but does not follow commands or answer questions at this time. 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 His Lasix was recently decreased from 40 mg to 20 mg daily and he was put on a water/salt restriction diet. The patient is scheduled for a cardiac ablation and 4 days at [facility]. He is followed by [facility] cardiology. 75-year-old man treated for altered mental status, gait instability. Initially the concern was to rule out CVA due to these symptoms. MRI with and without IV contrast showed brain mass with mild mass effect on the ventral lauryn and mild deviation of basilar artery to the left midline. This was known to the patient and his son but at this point seems like it may have increased in size. This case was discussed with Neurology who thought no acute intervention was required at this time. Patient should follow up with [facility] neuro surgery outpatient for options regarding pain. It is unknown at this time if patient is a surgical candidate or if this even warrants surgery. Patient will be sent with oxycodone for headache pain. His mental status is back to baseline and patient is alert and oriented times 4. Patient was also treated forward large pleural effusion with nodular opacity. Again the nodule was known by the patient and his son however pleural effusion was much larger this admission as opposed to previous imaging studies. Patient is status post diagnostic and therapeutic thoracentesis on 06/23/2025 with removal of 1.5 L of fluid. Cultures of fluid were negative. Cytology is pending and patient should follow up with his primary care provider for results of this. LY on CKD stage 3, improved. During hospitalization diuretics and losartan was held. But he may continue this outpatient Paroxysmal atrial fibrillation. Has been and Eliquis were held due to thoracentesis but resumed after procedure. Patient may also continue amiodarone and monitor for bradycardic episodes as he did have some during the hospitalization. Metoprolol stopped. Chronic heart failure with reduced ejection fraction. No exacerbation during hospitalization. Diuretics held during hospitalization due to LY but may resume on outpatient basis. ESLD w/ History of ascites on imaging. No abdominal pain or distention during this hospitalization. Follow up with Gastroenterology as needed History of ischemic cardiomyopathy with history of TR and MR. Obstructive sleep apnea. CPAP at bedtime and naps Hypertension. Continue losartan and hydralazine. Type 2 diabetes mellitus. Jardiance and metformin may be resumed. Treated with sliding scale insulin during hospitalization <Rose Russell NP - Last Filed: 06/24/25 14:41> Time Attestation Discharge Coordination Time (in mins): greater than 45 minutes <Tavo Roberto MD - Last Filed: 06/24/25 13:57> Quality: Safe Use of Opioids Does Pt have an Active Cancer Diagnosis on the Problem List?: No <Tavo Roberto MD - Last Filed: 06/24/25 13:57> Quality: Stroke Does the patient have a stroke diagnosis?: No <Tavo Roberto MD - Last Filed: 06/24/25 13:57> Physical Exam Exam: Exam: General: AxOx3, No acute distress Head: AT/NC ENT: Moist mucous membranes, decreased hearing Neck: supple CVS; RRR, S1 S2 normal Lungs: Clear bilateral breath sounds, no wheezes or crackles Abd: Soft non tender, non distended Ext: No edema and no calf tenderness MSK: moving all 4 limbs Skin: No cyanosis or edema Psych: Cooperative with exam Neurology: no focal deficit <Tavo Roberto MD - Last Filed: 06/24/25 13:57> Vital Signs: Vital Signs: Last Vital Signs Temp 98.1 F 06/24/25 11:03 Pulse 60 06/24/25 11:03 Resp 18 06/24/25 11:03 BP 135/78 06/24/25 11:03 Pulse Ox 98 06/24/25 11:03 O2 Del Method Room Air 06/24/25 11:03 BMI result Body Mass Index 26.8 <Rose Russell NP - Last Filed: 06/24/25 14:41> DS: Data Data Completed and Pending Completed studies during hospitalization [Text1]: Procedures Assistance with Respiratory Ventilation, Less than 24 Consecutive Hours, Continuous Positive Airway Pressure (05/14/25) Drainage of Peritoneal Cavity, Percutaneous Approach (05/14/25) Yazidism of Cardiac Rhythm, Single (03/08/25) Ultrasonography of Heart with Aorta, Transesophageal (03/08/25) <Rose Russell NP - Last Filed: 06/24/25 14:41> Pending studies at discharge: Pending at discharge 06/21/25 13:22 Cytology [PTH] Routine <Rose Russell NP - Last Filed: 06/24/25 14:41> Labs on day of discharge: Laboratory Results - last 24 hr 06/23/25 06/23/25 06/23/25 11:20 11:55 16:10 Sodium 138 Potassium 4.6 Chloride 105 Carbon Dioxide 27 Anion Gap 11 L BUN 16 Creatinine 1.22 Estim Creat Clear Calc 58.2 Estimated GFR 58 POC Glucose 118 H Random Glucose 125 H Calcium 9.9 Peritoneal WBC Cancelled Peritoneal RBC Cancelled Periton Neutrophils Cancelled Periton Lymphocytes Cancelled Peritoneal Monocytes Cancelled Peritoneal Eosinophils Cancelled Peritoneal Basophils Cancelled Peritoneal Other Cells Cancelled Peritoneal Tot Protein Cancelled Pleural WBC 0.525 Pleural RBC < 0.002 Pleural Neutrophils 4 Pleural Lymphocytes 18 Pleural Monocytes 1 Pleural Other Cells 77 Pleural Total Protein 2.6 06/23/25 06/24/25 06/24/25 20:26 05:00 10:51 Sodium Potassium Chloride Carbon Dioxide Anion Gap BUN Creatinine Estim Creat Clear Calc Estimated GFR POC Glucose 146 H 94 131 H Random Glucose Calcium Peritoneal WBC Peritoneal RBC Periton Neutrophils Periton Lymphocytes Peritoneal Monocytes Peritoneal Eosinophils Peritoneal Basophils Peritoneal Other Cells Peritoneal Tot Protein Pleural WBC Pleural RBC Pleural Neutrophils Pleural Lymphocytes Pleural Monocytes Pleural Other Cells Pleural Total Protein Preliminary micro results at discharge 06/23/25 11:55 Routine Culture - Preliminary Pleural Fluid No growth to date. Anaerobic Culture - Preliminary No growth to date. <Rose Russell NP - Last Filed: 06/24/25 14:41> Discharge Plan Discharge Anticipated Discharge Date/Time: 06/24/25 10:58 <Rose Russell NP - Last Filed: 06/24/25 14:41> Patient Disposition: Xfer SNF <Rose Russell NP - Last Filed: 06/24/25 14:41> Discharge Diagnosis: Altered mental status secondary to benign brain mass large pleural effusion status post thoracentesis LY on CKD stage 3 <Rose Russell NP - Last Filed: 06/24/25 14:41> Altered mental status secondary to benign brain mass large pleural effusion status post thoracentesis LY on CKD stage 3 <Tavo Roberto MD - Last Filed: 06/24/25 13:57> Referrals: [facility] [Outside] - 1 Week James Melgoza MD [Primary Care Provider, Internal Medicine] - 1 Week <Rose Russell NP - Last Filed: 06/24/25 14:41> Discharge Medications: New oxycodone 5 mg tablet 5 mg PO Q8H PRN (Reason: pain) Qty: 12 0RF Rx Instructions: Partial Fill upon patient request. Continued amiodarone 200 mg tablet 200 mg PO BID fenofibrate micronized 130 mg capsule 130 mg PO DAILY cetirizine 10 mg Tablet 10 mg PO DAILY famotidine 20 mg Tablet 20 mg PO DAILY omeprazole 20 mg Tablet,Delayed Release (Dr/Ec) 20 mg PO DAILY@0630 losartan 50 mg tablet 50 mg PO BID hydralazine 10 mg tablet 10 mg PO TID bupropion HCl [Wellbutrin SR] 150 mg tablet sustained-release 12 hr 150 mg PO BEDTIME polyethylene glycol 3350 17 gram powder in packet 17 g PO DAILY PRN (Reason: Constipation) Antacid Ext Str (calcium carb) 300 mg (750 mg) tablet,chewable 1 tab PO Q4H PRN (Reason: Heartburn) spironolactone 25 mg tablet 25 mg PO BID metformin 500 mg tablet extended release 24 hr 1,000 mg PO DAILY potassium chloride 20 mEq tablet,ER particles/crystals 20 meq PO DAILY albuterol sulfate 90 mcg/actuation HFA aerosol inhaler 2 puff inhalation Q4H PRN (Reason: Shortness Of Breath Or Wheezing) Qty: 8.5 3RF aspirin 81 mg tablet 81 mg PO DAILY Qty: 90 3RF atorvastatin 40 mg tablet 40 mg PO DAILY Qty: 90 3RF cholecalciferol (vitamin D3) [Vitamin D3] 50 mcg (2,000 unit) capsule 50 mcg PO DAILY Qty: 90 3RF Eliquis 5 mg tablet 5 mg PO BID Qty: 180 3RF gabapentin 400 mg capsule 400 mg PO BID Qty: 180 3RF Jardiance 25 mg tablet 25 mg PO DAILY Qty: 90 3RF tamsulosin 0.4 mg capsule 0.4 mg PO DAILY Qty: 90 3RF venlafaxine 75 mg capsule,extended release 24hr 225 mg PO DAILY Qty: 90 3RF senna 8.6 mg capsule 8.6 mg PO BID PRN (Reason: constipation) Qty: 14 0RF furosemide [Lasix] 20 mg tablet 20 mg PO DAILY Qty: 30 3RF Discontinued metoprolol succinate 50 mg tablet extended release 24 hr 50 mg PO DAILY <Rose Russell NP - Last Filed: 06/24/25 14:41> Discharge Orders: Discharge Order (Routine); Ordered 06/24/25 Ordered By: Rose Russell <Rose Russell NP - Last Filed: 06/24/25 14:41> Diet: Advance to usual diet <Rose Russell NP - Last Filed: 06/24/25 14:41> Advance to usual diet <Tavo Roberto MD - Last Filed: 06/24/25 13:57> Activity on Discharge: As tolerated <Rose Russell NP - Last Filed: 06/24/25 14:41> As tolerated <Tavo Roberto MD - Last Filed: 06/24/25 13:57> Stand Alone Forms: Patient Portal Discharge page <Rose Russell NP - Last Filed: 06/24/25 14:41> Print Language: American <Rose Russell NP - Last Filed: 06/24/25 14:41> Care Plan Goals: Follow up with primary care provider for results of cytology from thoracentesis Follow up with [facility] Neurosurgery regarding brain mass and headaches <Rose Russell NP - Last Filed: 06/24/25 14:41> Health Concerns: Altered mental status secondary to benign brain mass large pleural effusion status post thoracentesis LY on CKD stage 3 <Roes Russell NP - Last Filed: 06/24/25 14:41> Plan of Treatment: Follow up with primary care provider as needed Take all medications as prescribed <Rose Russell NP - Last Filed: 06/24/25 14:41> Assessment: See discharge summary <Rose Russell NP - Last Filed: 06/24/25 14:41>
--- NOTE | 2025-06-24 13:34 | MHC.CM.PN ---
THIS CM MET WITH PATIENT, AND HIS [id number] ERNIE PRESENT AT BEDSIDE TO DISCUSS DISCHARGE PLANS. PATIENT HAS ACCEPTED A STR BED AT [facility] IN [place], HIS FAMILY WILL TRANSPORT HIM THERE TODAY. NEW HCP COMPLETED WITH PATIENT, NOW ON FILE. IMM GIVEN 06/24.
--- NOTE | 2025-06-24 14:27 | PC.NURSE ---
This RN tried to contact nursing facility that patient is being transferred to. Tried to call facility x 2 but unable to get ahold of anyone. This RN sent patient with family as transportation to [facility] in [place] with all the patients discharge materials/paperwork
== END 2025-06-24 14:48 | disposition skilled nursing facility (03) | DRG 187 ==
LOC: HO.ED 21:41 → HO.EDOVER 06-20 01:19 → HO.IMC 06-20 07:37
PROVIDERS: Hospitalist; Nurse Practitioner Acute Care; Physician Assistant Medical; Radiology Diagnostic Radiology; Admitting Provider Physician Assistant; Emergency Provider Emergency Medicine; PCP Internal Medicine; Visit Provider Student in an Organized Health Care Education/Training Program
PROC: 0W993ZZ Drainage of Right Pleural Cavity, Percutaneous Approach (ICD-10-PCS; principal; 2025-06-23 11:30)
DX: J90 Pleural effusion, not elsewhere classified (principal); I13.0 Hypertensive heart and chronic kidney disease with heart failure and stage 1 through stage 4 chronic kidney disease, or unspecified chronic kidney disease; I50.22 Chronic systolic (congestive) heart failure; N17.9 Acute kidney failure, unspecified; R18.8 Other ascites; I48.0 Paroxysmal atrial fibrillation; N18.31 Chronic kidney disease, stage 3a; R94.31 Abnormal electrocardiogram [ECG] [EKG]; G47.33 Obstructive sleep apnea (adult) (pediatric); E11.22 Type 2 diabetes mellitus with diabetic chronic kidney disease; R91.1 Solitary pulmonary nodule; K75.81 Nonalcoholic steatohepatitis (NASH); D49.6 Neoplasm of unspecified behavior of brain; I08.1 Rheumatic disorders of both mitral and tricuspid valves; I25.5 Ischemic cardiomyopathy; W19.XXXA Unspecified fall, initial encounter; I25.10 Atherosclerotic heart disease of native coronary artery without angina pectoris; K72.10 Chronic hepatic failure without coma; Z20.822 Contact with and (suspected) exposure to COVID-19; Z79.01 Long term (current) use of anticoagulants; Z79.82 Long term (current) use of aspirin; Z79.84 Long term (current) use of oral hypoglycemic drugs; Z79.899 Other long term (current) drug therapy
CPT/HCPCS: 32555; 36415; 70496; 70498; 70553; 71045; 71046; 71260; 80048; 80061; 80076; 81003; 82140; 82164; 82803; 82947; 83615; 83735; 84155; 84157; 84439; 84443; 84484; 85025; 85027; 87070; 87073; 87205; 87637; 88112; 88305; 88341; 88342; 89051; 92610; 93005; 93306; 97162; 97166; 97530; 99285; A9585; J0131; J2003; J2270; J7120; Q9957; Q9967

== ENCOUNTER → 2025-06-19 17:20 | Outpatient (BNV) | payer BC, SELFPAY | PROVIDERS: Emergency Provider Emergency Medicine; PCP Internal Medicine; Visit Provider Radiology Diagnostic Radiology | DX: R41.82 Altered mental status, unspecified (principal); R90.0 Intracranial space-occupying lesion found on diagnostic imaging of central nervous system; J90 Pleural effusion, not elsewhere classified; R91.8 Other nonspecific abnormal finding of lung field | CPT/HCPCS: 70496; 70498; 71046 ==

== ENCOUNTER → 2025-06-19 17:21 | Outpatient (BNV) | payer BC, SELFPAY | PROVIDERS: Admitting Provider Physician Assistant; Emergency Provider Emergency Medicine; PCP Internal Medicine; Visit Provider Internal Medicine Cardiovascular Disease | DX: I44.0 Atrioventricular block, first degree (principal); I45.10 Unspecified right bundle-branch block; R00.1 Bradycardia, unspecified | CPT/HCPCS: 93010 ==

== ENCOUNTER 2025-06-20 00:55 | Outpatient (BNV) | payer BC, SELFPAY | END 2025-06-23 12:03 | PROVIDERS: Admitting Provider Physician Assistant; Emergency Provider Emergency Medicine; PCP Internal Medicine; Visit Provider Radiology Diagnostic Radiology | DX: J90 Pleural effusion, not elsewhere classified (principal) | CPT/HCPCS: 32555 ==

== ENCOUNTER 2025-06-20 00:55 | Outpatient (BNV) | payer BC, SELFPAY | END 2025-06-20 06:10 | PROVIDERS: Admitting Provider Physician Assistant; Emergency Provider Emergency Medicine; PCP Internal Medicine; Visit Provider Radiology Diagnostic Radiology | DX: R91.8 Other nonspecific abnormal finding of lung field (principal) | CPT/HCPCS: 71260 ==

== ENCOUNTER 2025-06-20 00:55 | Outpatient (BNV) | payer BC, SELFPAY | END 2025-06-20 07:00 | PROVIDERS: Admitting Provider Physician Assistant; Emergency Provider Emergency Medicine; PCP Internal Medicine; Visit Provider Internal Medicine Cardiovascular Disease | DX: I34.0 Nonrheumatic mitral (valve) insufficiency (principal); I51.7 Cardiomegaly; I36.1 Nonrheumatic tricuspid (valve) insufficiency | CPT/HCPCS: 93306 ==

== ENCOUNTER → 2025-06-20 00:55 | Outpatient (BNV) | payer BC, SELFPAY | PROVIDERS: Admitting Provider Physician Assistant; Emergency Provider Emergency Medicine; PCP Internal Medicine; Visit Provider Hospitalist | DX: J90 Pleural effusion, not elsewhere classified (principal); G47.33 Obstructive sleep apnea (adult) (pediatric); R06.09 Other forms of dyspnea; D86.9 Sarcoidosis, unspecified | CPT/HCPCS: 99253 ==

== ENCOUNTER → 2025-06-20 00:55 | Outpatient (BNV) | payer BC, SELFPAY | PROVIDERS: Admitting Provider Physician Assistant; Emergency Provider Emergency Medicine; PCP Internal Medicine; Visit Provider Psychiatry & Neurology Neurology | DX: G93.89 Other specified disorders of brain (principal) | CPT/HCPCS: 99253 ==

== ENCOUNTER → 2025-06-20 00:55 | Outpatient (BNV) | payer BC, SELFPAY | PROVIDERS: Admitting Provider Physician Assistant; Emergency Provider Emergency Medicine; PCP Internal Medicine; Visit Provider Physician Assistant Medical | DX: I10 Essential (primary) hypertension (principal) | CPT/HCPCS: 99232 ==

== ENCOUNTER 2025-06-25 15:10 | Outpatient (AMB) | payer BC, SELFPAY ==
--- OUTSIDE RECORDS SUMMARY | 2006-09-29 06:33 | XMS_ITS | Continuity of Care Document ---
Author Organization [facility] Address [address] [address] [place] [address] Phone Care Team Providers Care Manager Drive Name Role Phone Shaun FONSECA, Jaylen Unavailable [...] Date Provider Providers Copied on Encounter Eye [facility], [address] [address], [place], [place], [id number], tel:[phone] [facility] Patient dislikes glasses (chief complaint) No Information Shaun York. [address] [facility] [address], [place], [id number], [place]. tel:[phone] Family History Family Member Type Diagnosis Age [...]
--- NOTE | 2025-06-25 15:14 | MHC.OFFVIS ---
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 Required: No Accompanied by: Son Allergies erythromycin base Adverse Reaction (Verified 06/25/25 15:18) Unknown lisinopril Adverse Reaction (Verified 06/25/25 15:18) Unknown Penicillins Adverse Reaction (Verified 06/25/25 15:18) Unknown Medication List - Last Reconciled 06/25/25 by Angel Couch NP albuterol sulfate 90 mcg/actuation 2 puffs inhalation Q4H PRN amiodarone 200 mg PO BID apixaban (Eliquis) 5 mg PO BID aspirin 81 mg PO DAILY atorvastatin 40 mg PO DAILY bupropion HCl SR (Wellbutrin SR) 150 mg PO BEDTIME calcium carbonate (Antacid Ext Str (calcium carb)) 1 tab PO Q4H PRN cetirizine 10 mg PO DAILY cholecalciferol (vitamin D3) (Vitamin D3) 50 mcg PO DAILY empagliflozin (Jardiance) 25 mg PO DAILY famotidine 20 mg PO DAILY fenofibrate micronized 130 mg PO DAILY furosemide (Lasix) 20 mg PO DAILY gabapentin 400 mg PO BID hydralazine 10 mg PO TID losartan 50 mg PO BID metformin ER 1,000 mg PO DAILY omeprazole 20 mg PO DAILY@0630 oxycodone 5 mg PO Q8H PRN polyethylene glycol 3350 17 grams PO DAILY PRN potassium chloride ER 20 mEq PO DAILY sennosides (senna) 8.6 mg PO BID PRN spironolactone 25 mg PO BID tamsulosin 0.4 mg PO DAILY venlafaxine ER 225 mg (3 x 75 mg) PO DAILY HPI Comments Details: This is a 75-year-old male patient who comes in for a follow-up visit accompanied by his son. Patient with complicated medical history of coronary artery disease with prior PCI to RCA in 2020 with repeat cardiac catheterization in 2022 that showed patent RCA, AFib, hypertension, hyperlipidemia, diabetes, and chronic HFpEF. Patient previously was following with his primary network engineering advisor at [place] but has relocated to [place] and between these relocation patient has had multiple hospital visits for AFib management, liver toxicity and paresthesias. Since moving here, patient has been noted to be in persistent AFib with increased shortness of breath and fatigue for which patient was started back on amiodarone and referred out to composite assembler. At his last office visit, patient was noted to be not looking too well at which point we did labs and sent patient out to the emergency room. There patient was treated for LY and underwent diagnostic and therapeutic paracentesis. Patient then was at [facility] in the beginning of May due to difficulty breathing and was treated for acute exacerbation of heart failure. Patient was sent home with physical therapy however son noted that patient was starting to get confused and unstable gait with a 1 fall in his shower. Given his worsening gait instability and confusion, patient was brought back to the ER. Patient was ruled out for CVA and they MRI showed any increase in size of his brain mass. Patient has been referred out to neurosurgery for further recommendations. Son states 7 patient was admitted at [facility] the med Dr. Delgado and have decided to go ahead with the catheter ablation. Since they were recently in the hospital the AV is the appointment and is planning to reach back to the office. Most recently, patient was discharged to a short-term rehab and is currently residing there. Today, patient is reporting feeling better overall without any significant cardiac symptoms. Patient is reporting compliance with all his medications. [facility] Medical History Pleural effusion Hypertension Constipation Gallstone Depression Visual hallucination Myocardial infarct CAD (coronary artery disease) History of cardioversion Diabetes 1.5, managed as type 2 BPH (benign prostatic hyperplasia) Shock liver VERONICA (nonalcoholic steatohepatitis) History of alcohol abuse Essential hypertension A-fib Mass, brain Sarcoidosis GERD (gastroesophageal reflux disease) Hyperlipidemia Type 2 diabetes mellitus CHF (congestive heart failure) Surgical History H/O heart artery stent Social History Household Members: Family Household Members Other:: Son and daughter in law Housing: Apartment Do you presently have visiting nurse or other home services: No Comment: patients son turns off bed alarm at times Patient Tobacco Use Status: Never used Tobacco Tobacco use type: Cigarette e-Cigarette/Vaping Use: Never Used Second Hand Smoke Exposure: No service: No Current occupational status: retired Cognitive needs: No Hearing needs: Yes Vision needs: Yes Review of Systems Const Denies daytime sleepiness, Denies difficulty sleeping, Denies snoring, Denies stops breathing during sleep and Denies weakness Card Denies chest pain, Denies rapid heart rate, Denies irregular heart rhythm, Denies claudication, Denies leg edema, Denies lightheadedness, Denies palpitations, Denies dyspnea, Denies dyspnea on exertion, Denies orthopnea, Denies paroxysmal nocturnal dyspnea and Denies slow heart rate Resp Denies cough, Denies dyspnea, Denies dyspnea on exertion and Denies snoring GI Reports no additional complaints, Denies hematochezia, Denies change in stool character and Denies dyspepsia Musc Denies abnormal gait, Denies muscle weakness and Denies numbness Neuro Denies abnormal gait, Denies numbness and Denies weakness Endo Denies palpitations Physical Exam Vital Signs: Last Vital Signs Pulse 64 06/25/25 15:15 BP 134/82 06/25/25 15:15 BMI result Body Mass Index 25.9 Const General: cooperative, comfortable and no acute distress Orientation/consciousness: patient oriented x3 HEENT Head: Yes normal to inspection Neck Neck: Yes normal visual inspection, Yes trachea midline and Yes supple Chest Chest palpation & inspection: normal inspection of the chest Resp Effort & Inspection: normal respiratory effort Auscultation: clear to auscultation bilaterally, no crackles, no rales, no rhonchi and no wheezes Cardio Jugular venous distension: no JVD Palpation: normal PMI Rate: regular rate Rhythm: regular rhythm Heart sounds: S1 normal heart sound present, S2 normal heart sound present, no click, no gallops, no murmurs and no rubs Peripheral pulses: Peripheral pulses 2+ throughout GI Inspection: Yes normal to inspection Palpation (GI): Soft to palpation Auscultation: normal bowel sounds Skin General skin exam: no rashes or lesions noted Neuro General: patient oriented x3 Extrem General: Yes normal to inspection, No no pedal edema and No calf tenderness Psych Appearance: grossly normal Mental Status: mental status grossly normal Speech and movement: Normal speech and movement present Office Procedures EKG Details: EKG today showed normal sinus rhythm with first-degree AV block, rate 64 beats per minute, right bundle branch block and left posterior fascicular block in the pattern of bifascicular block, nonspecific ST[place], [place]. [id number], Complete Assessment & Plan Assessment & Plan (1) A-fib: Code(s): I48.91 - Unspecified atrial fibrillation Category: Medical Qualifiers: Atrial fibrillation type: paroxysmal Qualified Code(s): I48.0 - Paroxysmal atrial fibrillation Plan: 03/10/2025-echo study showed mildly decreased LV systolic function with an ejection fraction at 45% with akinetic basal inferior and mid inferior segments, and [id number]-um-[id number] mitral valve regurgitation. Echo repeated at [facility] on 05/07/2025 showed an EF of 48% with mild global hypokinesis of the left ventricle. It also showed a small pericardial effusion. 05/08/2025-patient underwent a myocardial perfusion study with vasodilating agent that revealed no ischemia but showed a moderate-sized, moderate severity fixed defect in the basal apical inferior wall consistent with scarring. EKG today showed normal sinus rhythm. Patient was restarted back on amiodarone at some point. Continue with Eliquis. No reported signs of recurrent falls or signs of bleeding. Patient will follow up with EP for catheter ablation. (2) Heart failure: Code(s): I50.9 - Heart failure, unspecified Category: Medical Qualifiers: Heart failure type: unspecified Heart failure chronicity: unspecified Qualified Code(s): I50.9 - Heart failure, unspecified Plan: As above. Continue with the current regimen. Advised on low-salt diet, fluid restriction at 1.5 L daily, daily weight monitoring, and compression socks as needed. Advised prn extra Lasix tablet as needed for weight gain of 3 lb a day or 5 lb in a week. (3) CAD (coronary artery disease): Code(s): I25.10 - Atherosclerotic heart disease of eek coronary artery without angina pectoris Category: Medical Plan: Per his records from [place] [facility], patient had a stent placed in 2020 to the RCA with a repeat cardiac catheterization in July of 2023 showing patent RCA with mild coronary disease in the LAD. As above. (4) Essential hypertension: Code(s): I10 - Essential (primary) hypertension Category: Medical Plan: Blood pressure today is low normal. Advised to hold his bedtime hydralazine and losartan. Advised hydration and further treatment based on lab findings. Advised to monitor blood pressures at home. (5) Hyperlipidemia: Code(s): E78.5 - Hyperlipidemia, unspecified Category: Medical Qualifiers: Hyperlipidemia type: unspecified Qualified Code(s): E78.5 - Hyperlipidemia, unspecified Plan: As above. (6) TEA (obstructive sleep apnea): Code(s): G47.33 - Obstructive sleep apnea (adult) (pediatric) Category: Medical Plan: Continue CPAP therapy. (7) Hospital discharge follow-up: Code(s): Z09 - Encounter for follow-up examination after completed treatment for conditions other than malignant neoplasm Plan: As above. Reviewed case with Dr. Mcdaniel. We will plan for a follow up with the Dr. Harrington next office visit. In the interim, patient will call the office with any concerns or change in symptoms. This note was generated using voice recognition software. While every effort has been made to ensure accuracy and proper universal grinder tool, there may be occasional errors that could affect the content or meaning of the described symptoms. Orders: Orders AMB EKG-In Office 06/25/25 I48.0 - Paroxysmal atrial fibrillation Complete Blood Count no Diff 06/25/25 I10 - Essential (primary) hypertension Basic Metabolic Panel 06/25/25 I10 - Essential (primary) hypertension Liver Panel 06/25/25 I10 - Essential (primary) hypertension Coding Level of Care Code Est Pt Level 4 (23760) Complex EM visit Add On G2211 Diagnoses A-fib I48.0 Atrial fibrillation type: paroxysmal Heart failure, unspecified HF chronicity, unspecified heart failure type I50.9 Heart failure type: unspecified Heart failure chronicity: unspecified CAD (coronary artery disease) I25.10 Essential hypertension I10 Hyperlipidemia, unspecified hyperlipidemia type E78.5 Hyperlipidemia type: unspecified TEA (obstructive sleep apnea) G47.33 Hospital discharge follow-up Z09 CPT Codes EKG - CPT: 45898-Ikaqurmdnguxzujti, Complete ([id number]) Time Spent (min) 34 Comment Time spent in reviewing the chart, test results, assessment, counseling and documentation.
[2025-06-25 15:15] VITALS: BP 134/82; PULSE 64; BMI 25.9
--- OUTSIDE RECORDS SUMMARY | 2025-06-25 19:36 | XMS_ITS | Encounter Summary ---
Author Organization [facility] Address [address] [place] [address] Care Team Providers Care Air Table Operator Name Role Phone Unavailable Primary Care Provider Unavailabl e Encounter Details Date Type Department Care Team (Late st Contact Info) Description 05/17/2021 Lab Requisition [facility] Services [place] [address] 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 Gender Identity Not on file Sexual Orientation Not on file documented as of this encounter Plan of Treatment Not on file documented as of this encounter Procedures Procedure Name Priority Date/Time Associated Diagnosis Comments PATHOLOGY Routine 05/17/2021 10:00 AM CDT documented in this encounter Results * PATHOLOGY (05/17/2021 10:00 AM CDT) CASE REPORT Surgical Pathology Report Case: [id number] Authorizing Provider: Tomás Alamo PA Collected: 05/17/2021 10:00 AM Ordering Location: [facility] Laboratory Received: 05/17/2021 12:52 PM Services [place] Pathologist: Dipak Perera MD Specimens: A) - Forearm, right, LIPOMA HRCN [id number] B) - Shoulder, left, SEBACEOUS CYST 05/18/2021 10:22 AM [facility] FINAL DIAGNOSIS A. Soft tissue, right forearm, excision- Angiolipoma B. Skin, left shoulder, excision- Epidermal inclusion cyst 05/18/2021 10:22 AM [facility] Verified by Dipak Perera MD [...] material. RSS 1. KM 05/18/2021 10:22 AM [facility] OPERATIVE PROCEDURE A. [id number] B. [id number] 05/18/2021 10:22 AM [facility] CLINICAL INFORMATION No Dx found. 05/18/2021 10:22 AM [facility] COMMENT ADAOK Surgical cases might have been signed out in the following labs: [facility] CLIA#[id number] , [address], [place] [address] [facility], CLIA# [id number], [address] [place] [address] 05/18/2021 10:22 AM [facility] Tissue (Forearm, right) 05/17/2021 10:00 AM CDT 05/17/2021 12:52 PM CDT Tissue specimen (specimen) (Shoulder, left) 05/17/2021 10:22 AM CDT 05/17/2021 12:52 PM CDT Tomás Alamo PA-C PATHOLOGY/CYTOLOGY ORDERABLES Final Result [facility] CLIA# [id number] [address] [place] [address] documented in this encounter Visit Diagnoses Not on filedocumented in this encounter
--- OUTSIDE RECORDS SUMMARY | 2025-06-25 19:37 | XMS_ITS | Clinical Summary ---
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
--- OUTSIDE RECORDS SUMMARY | 2025-06-25 19:37 | XMS_ITS | Clinical Summary ---
Author Organization [facility] Address [address], [place] [address] Phone Care Team Providers Care Conference Center Coordinator Name Role Phone Unavailable Primary Care Provider [...] Diagnosed Date Abnormal EKG 05/16/2024 CAD in [place] artery 05/16/2024 Type 2 diabetes mellitus without complication Atherosclerosis of coronary artery without angin a pectoris 07/02/2023 Stented coronary artery 07/02/2023 Mixed hyperlipidemia 01/27/2023 Essential hypertension 07/17/2022 Obstructive sleep apnea syndrome 07/17/2022 Paroxysmal atrial fibrillation 07/17/2022 Chronic lung disease 04/06/2022 Moderate mitral regurgitation 04/06/2022 Chest pain 09/23/2020 Myocardial infarction 09/23/2020 Encounters Date Type Department Care Team Description 04/02/2025 Telephone [facility] [address] [address] [place] [phone] Marian Holland from Last 3 Months Immunizations [...] to complete this topic Sigmoidoscopy Discontinued Insurance [facility] Address: [facility] [id number] [place] [address] [facility]
--- OUTSIDE RECORDS SUMMARY | 2025-06-25 19:37 | XMS_ITS | Clinical Summary ---
Author Organization [facility] Address [address] [place] [address] Phone Care Team Providers Care Overlock Collar Setter Name Role Phone Pcp, Unknown Primary Care [...] Description 09/24/2025 1:00 PM EST Office Visit [facility] Medicine [address] [place] [address] Merle Garces MD [address] [place] [address] [email or web address] Due Date Last Done Comments [...] topic Medical Devices Not on file Insurance [facility] MEDICARE A BLUE CROSS FEDERAL MEDICARE A [facility] MEDICARE [facility] MEDICARE A [facility] MEDICARE A [facility] FEDERAL MEDICARE A Care Teams Overlock Collar Setter Relationship Specialty Start Date End Date Pcp, Unknown PCP - General 04/29/25 Additional Source Comments The information contained in this document represents components of the legal health record. It is not the complete legal health record.[facility]
--- OUTSIDE RECORDS SUMMARY | 2025-06-25 19:37 | XMS_ITS | Data Portability ---
Author Organization [place] [facility] [place] Address [address] [facility] [address] [place] [address] Care Team Providers Care Boiler Maker Name Role Phone [facility] Primary Care Provider ROB NGUYEN Mineral Surveying Technician Assessment Encounter Date Assessment Date Assessment LastModified [...] Time Details Appointments ECHO 2025 10:45A M [facility] Not available Not available Not available CARDI KOFI GORE D 2025 11:45A M Bryant Mendez MD Not available Not available Not available Lab None recor ded. Referral None recor ded. Procedures None recor ded. Surgeries None recor ded. Imaging arpita milligan am 2023 024 [email or web address] [place], [address] [place] [address] [address], [place], [address], 06/27/2024 14:58:34 arpita milligan am 2023 024 [email or web address] [place], [address], [place], [address], 12/21/2023 16:25:54 Medication Orders None recor ded. Patient TargetsNo targets recorded. Patient InstructionsNo instructions recorded. Reason for Referral None Reported. Results Created Date Observation Date Name Description Value Unit Range Abnormal Flag Note LastModifiedBy Organization Detail LastModifiedTime 05/18/20 23 03/19/2023 , [facility] ardio gram No observ ation record ed. [email or web address] Not Available 2022 08:59:52 06/16/20 23 06/15/2023 elect rocar diogr am No observ ation record ed. [email or web address] Not Available 2022 10:18:17 06/28/20 23 06/28/2023 NM, myoca rdial perfu courtney scan, w/ stres s No observ ation record ed. [facility] [address], [place], [address], 07/05/2023 15:22:13 12/21/19 elect rocar diogr am No observ ation record ed. [email or web address] [facility] ity [address], [place], [address], 12/21/2023 16:19:10 12/21/19 24 elect rocar diogr am No observ ation record ed. [email or web address] Not Available 2023 16:16:01 06/27/20 24 07/03/2024 elect rocar diogr am No observ ation record ed. [email or web address] [place] [address] [facility] [address], [place], [address], 07/03/2024 10:31:06 06/27/20 24 elect rocar diogr am No observ ation record ed. [email or web address] Not Available 2023 10:03:48 06/27/20 24 06/27/2024 US, echoc ardio gram, trans thora cic, compl ete, w/ color flow No observ ation record ed. [email or web address] Not Available 2023 10:59:16 01/24/20 25 01/23/2025 elect rocar diogr am No observ ation record ed. [email or web address] [place] [address], [place], [address], 01/23/2025 20:58:27 01/24/20 elect rocar diogr am No observ ation record ed. [email or web address] Not Available 2024 13:38:49 03/07/20 25 03/02/2025 elect rocar diogr am No observ ation record ed. [email or web address] Not Available 03/07 15:24:04 03/07/20 25 03/02/2025 XR, chest , 1 view No observ ation record ed. [email or web address] Not Available 03/07 15:24:41 Result Notes Documentation Provider Name and Address Organization Details Recorded Time Nm, Myocardial Perfusion Scan, W/ Stress : Stress LV EF: 61%. Medium size, mostly fixed inferior wall perfusion defect Not Available [facility] 06/20/2025 03:19:3 6 Problems Name Problem SNOMED Code Status Onset Date Resolution Date Notes Provider Name and Address Organization Details Recorded Time Mitral valve regurgitat ion 72810106 [facility] 2 10:52:39 Placement of stent in cardiac conduit Active 2021 X 3 [facility] [place] [facility] 10:52:50 Type 2 diabetes mellitus 13097306 Active 2021 [facility] 2 10:52:59 Cardiovers ion Active 2021 [facility] 2 10:53:31 Chronic lung disease 929820844 Active 2021 [facility] 2 10:56:39 Paroxysmal atrial fibrillati on 451723936 Active 2021 NIKITA Hatfield [address], [place], [address], [facility] 2 10:54:46 Obstructiv e sleep apnea syndrome 68343415 Active 2021 Surjit Miner [facility] [address], [place], [address], [facility] 2 10:55:19 Essential hypertensi on 88742633 Active 2021 Surjit Miner, [facility] [address] [facility] [address], [place], [address], [facility] 2 10:55:24 Hyperlipid emia 68572653 Active 2022 [facility]AL [facility] [place] 3 14:45:54 Dyspnea on dressing and undressing 295581969 Active 2022 [facility] [place] 3 10:59:09 Stented coronary artery 555631322 Active 2022 [facility] [place] 3 10:59:16 Atheroscle rosis of coronary artery without angina pectoris 516862564790 103 Active 2022 [facility] [place] 3 10:59:22 History of benign neoplasm of brain 198575338 Active 2024 Surjit Miner, [facility] [address], [place], [address], [facility] 5 14:03:26 Problem Notes None recorded. Procedures Surgical History Date Name Laterality Status Provider Name and Address Organization Details Recorded Time 024 Tte w/doppler complete completed Not Available [facility] [employer] [facility] 06/27/2024 14:17:25 023 Cardiac Catheterization completed [facility] 08/15/2023 17:28:21 023 Ht muscle image spect mult completed Not Available [facility] [employer] [facility] 06/28/2023 16:42:22 023 Cardiovascular stress test completed Not Available [facility] [employer] [facility] 06/28/2023 16:42:22 022 Cardioversion completed [facility] 08/04/2023 16:09:13 021 Coronary Artery Stent completed SAURAV ZAVALA [facility] 08/04/2023 16:05:38 Imaging Results None recorded. Procedure Notes None recorded. Medical Equipment None Reported. Allergies Allergen ID Allergen Name Allergen Category Reaction Reaction Severity Criticality Documentation Date Start Date Code Code System Note Provider Name and Address Organization Details Recorded Time 55830 Product containin g penicilli n (product) medicatio n Not available Not available Not available 04/06/2022 46830 8001 SNOMED AIXA FELIPE [facility] 2 10:45:30 40491 lisinopri l medicatio n Not available Not available Not available 04/06/2022 37241 RxNorm AIXA FELIPE [facility] 10:45:41 00792 Erythroci n medicatio n Not available Not available Not available 04/06/2022 75127 3 RxNorm AIXA FELIPE [facility] 2 10:45:48 Medications Name Sig Start [...] DateTime 12/21/[address] [facility] 12/21/2023 16:00:50 Date Recorded Body mass index (BMI) Body weight Heart rate Oxygen saturation Oxygen saturation in Arterial blood by Pulse oximetry Systolic And Diastolic Provider Name and Address Organization Details Last Updated DateTime 4 31 kg/m2 925239. 21 g 60 /min 98 % 98 % 120/74 mm[Hg] [facility] 4 16:17:06 Date Recorded Body height Body mass index (BMI) Body weight Heart rate Oxygen saturation Oxygen saturation in Arterial blood by Pulse oximetry Systolic And Diastolic Provider Name and Address Organization Details Last Updated DateTime 5 33.02 cm 873.6 kg/m2 42280.4 g 53 /min 98 % 98 % 162/84 mm[Hg] Shannan Adrianabety [facility] 5 13:44:49 Date Recorded Body height Body mass index (BMI) Body weight Heart rate Oxygen saturation Oxygen saturation in Arterial blood by Pulse oximetry Systolic And Diastolic Provider Name and Address Organization Details Last Updated DateTime 3 185.42 cm 31 kg/m2 691885. 21 g 80 /min 96 % 96 % 144/90 mm[Hg] Latricia [facility] 3 13:43:14 Date Recorded Body height Body mass index (BMI) Body weight Heart rate Oxygen saturation Oxygen saturation in Arterial blood by Pulse oximetry Systolic And Diastolic Provider Name and Address Organization Details Last Updated DateTime 4 185.42 cm 30.6 kg/m2 601555. 43 g 56 /min 95 % 95 % 168/102 mm[Hg] Tracy Block [facility] 4 13:44:06 Social History Question Answer Notes LastModified by Organizat ion Details LastModified Time Tobacco Smoking Status Never Smoker [facility] [place] 04/06/2022 10:55:48 Do You Have An Advance [...] Do You Have A Medical Power Of Certified Pharmacist Assistant? No Information not available 04/06/2022 What Was [...] SARS-COV-2 (COVID-19) vaccine, UNSPECIFIED 1 completed [facility] [place] 04/06/2022 10:51:58 pneumococcal polysaccharide PPV23 7 completed [facility] [place] 04/06/2022 10:52:06 influenza, unspecified formulation 1 [facility] [place] 04/06/2022 10:52:28 Influenza, adjuvanted, quadrivalent, PF 2 completed [facility] [place] 09/07/2022 13:55:00 SARS-COV-2 (COVID-19) vaccine, UNSPECIFIED 1 completed [facility] [place] 09/07/2022 13:55:07 SARS-COV-2 (COVID-19) vaccine, UNSPECIFIED 1 completed [facility] [place] 09/07/2022 13:55:10 SARS-COV-2 (COVID-19) vaccine, UNSPECIFIED 1 [facility] [place] 09/07/2022 13:55:13 Pneumococcal Conjugate, unspecified formulation 1 [facility] [place] 09/07/2022 13:55:21 Past Encounters Encounter ID Performer Location Encounter Start Date Encounter Closed Date Diagnosis/Indication Diagnosis SNOMED-CT Code Diagnosis ICD10 Code Diagnosis IMO Codes Diagnosis Note [id number] Bryant Mendez MD [address] [address] 04/06/2022 10:33:36 04/06/2022 11:57:59 Atrial fibrillation 61357393 I48.91 Persistent , quite likely exacerbate d by his suboptimal ly treated sleep apnea syndrome Obstructiv e sleep apnea syndrome 29835079 G47.33 Non-rheuma tic mitral regurgitation 857266132 I34.0 Atheroscle rosis of coronary artery without angina pectoris 2727400359 20739 I25.10 Stented co ronary artery 833026070 Z95.5 Right coronary artery, [place], July 2021 [id number] Surjit Miner, [address] [address] 07/18/2022 10:23:48 07/18/2022 10:53:26 Dyspnea 571116679 R06.00 Mitral lisa ve regurgitation 97326422 I34.0 Chronic lung disease 413 700880 J98.4 Paroxysmal atrial fibrillation 665660841 I48.0 Type 2 la betes mellitus 30776199 E11.9 Essential hypertension 80144173 I10 Obstructiv e sleep apnea syndrome 96903007 G47.33 [id number] Bryant Mendez MD [address] [address] 09/07/2022 12:15:12 09/07/2022 14:37:05 Essential hypertension 49483335 I10 Mitral lisa ve regurgitation 46246239 I34.0 Paroxysmal atrial fibrillation 248988305 I48.0 Type 2 la betes mellitus 76262268 E11.9 Stented co ronary artery 805157991 Z95.5 Right coronary artery, [place], July [id number] Alessio Chirinos, [place] [id number] [employer] [place] [facility] [address] [place] [address] 06/15/2023 13:28:41 06/15/2023 14:02:37 Essential hypertension 44659011 I10 Obstructiv e sleep apnea syndrome 32163630 G47.33 Paroxysmal atrial fibrillation 764122941 I48.0 Type 2 la betes mellitus 86090421 E11.9 Stented co ronary artery 150882979 Z95.5 [id number] Alessio Chirinos [facility] [address] [employer] [place] [address] [facility] [address] [place] [address] 12/21/2023 15:54:58 12/21/2023 16:24:27 Essential hypertension 19968420 I10 Type 2 la betes mellitus 61851482 E11.9 Obstructiv e sleep apnea syndrome 72861201 G47.33 Mitral lisa ve regurgitation 20022104 I34.0 Paroxysmal atrial fibrillation 283626861 I48.0 [id number] Bryant Mendez MD [place] [address] [place] [address] 06/27/2024 12:27:58 06/27/2024 14:23:54 Essential hypertension 38106991 I10 Atheroscle rosis of coronary artery without angina pectoris 9064613599 44312 I25.10 Chronic lung disease 413 042569 J98.4 Mitral lisa ve regurgitation 54985695 I34.0 Obstructiv e sleep apnea syndrome 36856874 G47.33 Paroxysmal atrial fibrillation 442585686 I48.0 Stented co ronary artery 115162103 Z95.5 Type 2 la betes mellitus 54881393 E11.9 [id number] Bryant Mendez MD [place] [address] [place] [address] 01/23/2025 13:20:35 01/23/2025 13:57:31 Stented coronary artery 587301413 Z95.5 Atheroscle rosis of coronary artery without angina pectoris 7070168202 49400 I25.10 Hyperlipidemia 18177399 E78.5 Essential hypertension 60605678 I10 Paroxysmal atrial fibrillation 747759305 I48.0 Type 2 la betes mellitus 86343682 E11.9 Chronic lung disease 413 051606 J98.4 Obstructiv e sleep apnea syndrome 46437865 G47.33 History of benign neoplasm of brain 965319427 Z86.011 [id number] Health Concerns Section Related Observation LastModified by Organization Detai ls LastModified Time None Recorded Concern Status LastModified by Organization Details LastModified Time None Recorded Advance Directives Directive N: Payers Insurance Date Sequence Insurance Name Policy Number Policy Kennedy Covered Member ID Kennedy Member ID Guarantor Name 01/23/2025 2 [place] [employer] [facility] Stone Walker [id number] Stone Walker 01/23/2025 [facility] Stone Walker [id number] Stone Walker 01/23/2025 [facility] Stone Walker [id number] Stone Walker 04/21/2025 1 [place]) [id number] Stone Walker [id number] Stone Walker 01/23/2025 [facility] Stone Walker ADA [id number] Stone Walker 01/23/2025 [facility] Stone Walker [id number] Stone Walker Notes Date Note Type Note [...] the 140/90 range. Alessio Chirinos, [facility] [address], [place], [address], [facility] Cardi[facility] 06/15/2023 14:03:28 12/21/2023 text/html This is a [...] night tolerating well. Alessio Chirinos, [facility] [address], [place], [address], [facility] 12/21/2023 16:26:15 06/27/2024 text/html Stone Walker is [...] a QTc of 484 ms. Surjit Miner, [facility] [address], [place], [address], [facility] - [facility] Health [...] have been fewer in number. Surjit Miner, [address], [place], [address], [facility] 01/23/2025 15:50:22
== END 2025-06-25 16:06 | disposition home or self-care (01) ==
DX: I48.0 Paroxysmal atrial fibrillation (principal); I50.9 Heart failure, unspecified; I25.10 Atherosclerotic heart disease of native coronary artery without angina pectoris; I10 Essential (primary) hypertension; E78.5 Hyperlipidemia, unspecified; G47.33 Obstructive sleep apnea (adult) (pediatric); Z09 Encounter for follow-up examination after completed treatment for conditions other than malignant neoplasm
CPT/HCPCS: 99214

== ENCOUNTER → 2025-06-25 15:10 | Outpatient (BNVA) | payer BC, SELFPAY | DX: Z09 Encounter for follow-up examination after completed treatment for conditions other than malignant neoplasm (principal); G47.33 Obstructive sleep apnea (adult) (pediatric); I48.0 Paroxysmal atrial fibrillation; I11.0 Hypertensive heart disease with heart failure; I50.9 Heart failure, unspecified; I25.10 Atherosclerotic heart disease of native coronary artery without angina pectoris; E78.5 Hyperlipidemia, unspecified; I45.2 Bifascicular block; R94.31 Abnormal electrocardiogram [ECG] [EKG] | CPT/HCPCS: 93005 ==

== ENCOUNTER 2025-07-02 13:47 | Outpatient (AMB) | payer BC, SELFPAY ==
--- NOTE | 2025-07-02 13:58 | A.OFFPC_ITS ---
Vital Signs 07/02/25 13:59 Height 6 ft 1 in Weight 187 lb 8 oz BMI 24.7 BP 110/62 Blood Pressure Location Lt brachial Position Sitting Pulse 73 Pulse Source Pulse Oximeter Temp 97.3 F Temp Source Temporal Artery Scan Pulse Oximetry (%) 94 Oxygen Delivery Method Room Air Intake Visit Reasons: 2 week f/u Intake Note: Patient is here to follow up on LY. Game Room Attendant Required: No Surgery Center Administrator: Present Accompanied by: Son Allergies erythromycin base Adverse Reaction (Verified 07/02/25 13:59) Unknown lisinopril Adverse Reaction (Verified 07/02/25 13:59) Unknown Penicillins Adverse Reaction (Verified 07/02/25 13:59) Unknown Medication List - Last Reconciled 07/02/25 by James Boyle MD albuterol sulfate 90 mcg/actuation 2 puffs inhalation Q4H PRN amiodarone 200 mg PO BID apixaban (Eliquis) 5 mg PO BID aspirin 81 mg PO DAILY atorvastatin 40 mg PO DAILY bupropion HCl SR (Wellbutrin SR) 150 mg PO BEDTIME calcium carbonate (Antacid Ext Str (calcium carb)) 1 tab PO Q4H PRN cetirizine 10 mg PO DAILY cholecalciferol (vitamin D3) (Vitamin D3) 50 mcg PO DAILY empagliflozin (Jardiance) 25 mg PO DAILY famotidine 20 mg PO DAILY fenofibrate micronized 130 mg PO DAILY furosemide (Lasix) 20 mg PO DAILY gabapentin 400 mg PO BID hydralazine 10 mg PO TID losartan 25 mg PO BID metformin ER 1,000 mg PO DAILY omeprazole 20 mg PO DAILY@0630 polyethylene glycol 3350 17 grams PO DAILY PRN sennosides (senna) 8.6 mg PO BID PRN spironolactone 25 mg PO BID tamsulosin 0.4 mg PO DAILY venlafaxine ER 225 mg (3 x 75 mg) PO DAILY Tobacco use date assessed: 07/02/25 Fall risk assessment: No Falls in past year Last assessed Fall Risk: 07/02/25 Dental Screening Dental Screen Date: 06/16/25 HPI HPI Comments History of Present Illness Details 75 YM with HFrEF, RBBB, CAD/MA/ PCI (2022), gallstones, benign brain mass, COPD/asthma, AFIB on amiodorone and eliquis, with HX of multiple Cardioversions, hypertension, hyperlipidemia, depression, history of alcohol abuse (now using intermittently), BPH, NIDDM with chronic constipation, peripheral neuropathy, allergic rhinitis, visual hallucinations ghosts , recent admission [facility] [place] for shock liver secondary to most likely cardiorenal syndrome vs amiodrone, TEA on CPAP, pulmonary hypertension, Hearing loss who is presenting for two weeks follow-up. Since his last visit the patient was admitted to the hospital for AMS. The initial concern was for stroke. The patient was evaluated with brain MRI w/wo contrast which was negative for stroke but it showed brain mass that is already known to the patient and his family. Neuro were consulted with no intervention needed but the patient needs to follow-up with [facility] for evaluation of potential surgical intervention. He was also found to have large pleural effusion with nodular opacity which was already known however the pleural effusion was much larger. Thoracenthesis was done on 06/23/2025 with removal of 1.5L of fluid. Cultures were negative and cytology was negative for malignant cells. LY on CKD improved during hospitalization and his losartan and diuretics were held. His Eliquiss was held for thoracenthesis but it was restarted prior to discharge. The patient was also seen by cardiology on 06/25/2025 for follow-up and they confirmed the need to continue Eliquiss, fluid restriction, Amiodarone, and salt restriction. Hsi BP was borderline low in clinic so he was advised to hold his hydralazine and losartan. For type 2 diabetes, the patient has been taking metformin and was previously on Ozempic, which he is requesting a refill for. His most recent A1c was 6.1%. [facility] Medical History Pleural effusion Hypertension Constipation Gallstone Depression Visual hallucination Myocardial infarct CAD (coronary artery disease) History of cardioversion Diabetes 1.5, managed as type 2 BPH (benign prostatic hyperplasia) Shock liver VERONICA (nonalcoholic steatohepatitis) History of alcohol abuse Essential hypertension A-fib Mass, brain Sarcoidosis GERD (gastroesophageal reflux disease) Hyperlipidemia Type 2 diabetes mellitus CHF (congestive heart failure) Surgical History H/O heart artery stent Social History Household Members: Family Household Members Other:: Son and daughter in law Housing: Apartment Do you presently have visiting nurse or other home services: No Comment: patients son turns off bed alarm at times Patient Tobacco Use Status: Never used Tobacco Tobacco use type: Cigarette e-Cigarette/Vaping Use: Never Used Second Hand Smoke Exposure: No service: No Current occupational status: retired Cognitive needs: No Hearing needs: Yes Vision needs: Yes Questionnaire Thrive Questionnaire Date Thrive assessed: 05/23/25 I am a: Patient What is your living situation today?: I have a steady place to live Within the past 12 months, did the food you bought not last and you didn't have the money to get more?: Never true Within the past 12 months, did you worry whether your food would run out before you got money to buy more?: Never true Do you have trouble paying for medicines?: No Do you have trouble getting transportation to medical appointments?: No Do you have trouble paying your heating and electricity bill?: No Do you have trouble taking care of your child, family member or friend?: No Do you have trouble with day-to-day activities such as bathing, preparing meals, shopping, managing finances, etc.?: No Are you currently unemployed and looking for a job?: No Are you interested in more education?: No Please select the resources that you would like help with: None Currently or been in a relationship where the following occur: No concerns reported THRIVE Score: 0 ALO-7 AMB Questionnaire ALO-7 Date ALO - 7 assessed: 05/30/25 Source: Developed by Drs. Teo Gomez, Megan Martins, Perry Farias and colleagues, with an educational benito from [employer] Review of Systems Const Details: As per HPI. Physical exam (Primary Care) Vital Signs: Last Vital Signs Temp 97.3 F 07/02/25 13:59 Pulse 73 07/02/25 13:59 BP 110/62 07/02/25 13:59 Pulse Ox 94 07/02/25 13:59 Oxygen Delivery Method Room Air 07/02/25 13:59 BMI result Body Mass Index 24.7 Tobacco/Smoking Status: Tobacco use Status Tobacco use date assessed 07/02/25 07/02/25 14:04 Patient Tobacco Use Status Never used Tobacco 07/02/25 14:04 Tobacco use type Cigarette 07/02/25 14:04 e-Cigarette/Vaping Use Never Used 07/02/25 14:04 Thrive Assessment: Date of Thrive Assessment Date Thrive assessed 05/23/25 07/02/25 14:04 Currently or been in a relationship where the following occur: No concerns reported Const Other: Pertinent findings are in BOLD GENERAL APPEARANCE NAD, activity normal for age, well developed/ well nourished, no cyanosis, pallor, or diaphoresis. EYES lids/conjunctiva normal. EARS/NOSE/THROAT Mucous membranes moist, nares normal, lips/teeth normal uvula midline without oral pharyngeal erythema, exudate or swelling TMs normal bilaterally. No lymphangitis/lymphedema. HEAD/NECK normocephalic atraumatic, no facial trauma, neck is supple. RESPIRATORY respiratory effort normal, speaks in full sentences, no tripod position, no accessory muscle use. Lungs clear to auscultation without rhonchi, wheezes, rales CARDIAC Regular rate and rhythm, no edema. ABDOMINAL Soft, ND/NT. No evidence of fluid wave. No pulsatile masses on exam, rebound tenderness, Mccrary sign or pain over Mcburney's point. MUSCLES/EXTREMITIES No abnormal range of motion, no swelling. Lower extremities wekaness. 3/5. SKIN Warm, pink and dry. No rashes, dermatoses, petechiae or lesions. NEUROLOGICAL Speech is clear and appropriate. Normal level of consciousness. Gait and coordination are normal. PSYCH Normal mood and affect. Judgement/competence is appropriate Results AMB Hemoglobin A1c AMB Hemoglobin A1c 6.1 % Last Edit by CARMEN Darnell on 07/02/25 14:22 Results Reviewed Results Reviewed: Laboratory Last Values Hgb A1c (Clinic) 6.1 % (4.0-6.0) H 07/02/25 14:07 Coding Level of Care Code Est Pt Level 5 (53679) Diagnoses Pleural effusion J90 Essential hypertension I10 Acute HFrEF (heart failure with reduced ejection fraction) I50.21 A-fib I48.0 Atrial fibrillation type: paroxysmal Hyperlipidemia, unspecified hyperlipidemia type E78.5 Hyperlipidemia type: unspecified Other ascites R18.8 Ascites type: other type CKD stage 3a, GFR 45-59 ml/min N18.31 Weakness R53.1 Type 2 diabetes mellitus without complication, without long-term current use of insulin E11.9 Diabetes mellitus type: type 2 Diabetes mellitus medical terminologist insulin use: without medical terminologist use Diabetes mellitus complication status: without complication Coronary artery disease due to calcified coronary lesion I25.10; I25.84 Coronary Disease-Associated Artery/Lesion type: due to calcified coronary lesion Constipation, unspecified constipation type K59.00 Constipation type: unspecified constipation type Chronic intractable headache, unspecified headache type R51.9; G89.29 Headache type: unspecified Headache chronicity pattern: chronic headache Intractability: intractable Brain tumor D49.6 Time Spent (min) 40 Assessment & Plan Assessment & Plan (1) Pleural effusion: Comment: s/p thoracenthesis 06/23/2025 Code(s): J90 - Pleural effusion, not elsewhere classified Category: Medical Plan: Thoracenthesis fluid studies were negative for malignancy and/ or infection. CT scan scheduled in 7 weeks to re-assess for reccurence. (2) Essential hypertension: Code(s): I10 - Essential (primary) hypertension Category: Medical Plan: Continue lasix 20mg, and hydralazine 10 mg. (3) Acute HFrEF (heart failure with reduced ejection fraction): Code(s): I50.21 - Acute systolic (congestive) heart failure Category: Medical Plan: Most recent echo 06/20/2025 with EF of 40-45%. Continue low dose of spironolactone and lasix. Continue Losartan and Jardiance. Follows with cardiology, next appointment in 07/28. (4) A-fib: Code(s): I48.91 - Unspecified atrial fibrillation Category: Medical Qualifiers: Atrial fibrillation type: paroxysmal Qualified Code(s): I48.0 - Paroxysmal atrial fibrillation Plan: - The patient is scheduled for a cardiac ablation on July 31 at [facility]. - Metoprolol was previously stopped in the hospital due to a low heart rate and will remain discontinued. - Continue amiodarone and apixaban as prescribed. (5) Hyperlipidemia: Code(s): E78.5 - Hyperlipidemia, unspecified Category: Medical Qualifiers: Hyperlipidemia type: unspecified Qualified Code(s): E78.5 - Hyperlipidemia, unspecified Plan: Continue fenofibrate and atorvastatin. (6) Ascites: Code(s): R18.8 - Other ascites Category: Medical Qualifiers: Ascites type: other type Qualified Code(s): R18.8 - Other ascites Plan: Continue lasix 20 and spironolactone 25 mg. No ascites on physical exam today. Advised the patient to follow-up with GI outpaitent. (7) CKD stage 3a, GFR 45-59 ml/min: Code(s): N18.31 - Chronic kidney disease, stage 3a Category: Medical Plan: Patient had LY recently most likely 2/2 diuretics. We will continue monitoring the patient's kidney function with labs. Most recent Cr 1.22 improved from 1.44. (8) Weakness: Code(s): R53.1 - Weakness Category: Medical Plan: Currently undergoing PT at rehab. He will continue with home PT. (9) Diabetes mellitus: Code(s): E11.9 - Type 2 diabetes mellitus without complications Category: Medical Qualifiers: Diabetes mellitus type: type 2 Diabetes mellitus medical terminologist insulin use: without medical terminologist use Diabetes mellitus complication status: without complication Qualified Code(s): E11.9 - Type 2 diabetes mellitus without complications Plan: - Patient's A1c is 6.1%, indicating good glycemic control. - Will hold Ozempic at this time to avoid polypharmacy and potential side effects such as constipation. - The patient will continue taking metformin. (10) CAD (coronary artery disease): Comment: PCI (2020, 2022) Code(s): I25.10 - Atherosclerotic heart disease of [place] coronary artery without angina pectoris Category: Medical Qualifiers: Coronary Disease-Associated Artery/Lesion type: due to calcified coronary lesion Qualified Code(s): I25.10 - Atherosclerotic heart disease of [place] coronary artery without angina pectoris; I25.84 - Coronary atherosclerosis due to calcified coronary lesion Plan: Continue Statin and ASA. (11) Constipation: Code(s): K59.00 - Constipation, unspecified Category: Medical Qualifiers: Constipation type: unspecified constipation type Qualified Code(s): K59.00 - Constipation, unspecified Plan: - Continue taking MiraLax and senna as needed for constipation. - A prescription for Align, a probiotic, will be sent to help with bloating and gas. (12) Headache: Code(s): R51.9 - Headache, unspecified Category: Medical Qualifiers: Headache type: unspecified Headache chronicity pattern: chronic headache Intractability: intractable Qualified Code(s): R51.9 - Headache, unspecified; G89.29 - Other chronic pain Plan: - The patient is advised to stop taking oxycodone, which was prescribed for headaches after his hospital discharge. - He should contact the clinic for an alternative medication if headaches recur. (13) Brain tumor: Code(s): D49.6 - Neoplasm of unspecified behavior of brain Category: Medical Plan: 1.6 cm x 1.9 cm x 9 mm enhancing right CP angle/prepontine meningioma on MRI from 05/2025. Neurosurgery at [facility] referral placed while the patient was in the hospital. Follow reccs. Plan I noted to the patient that he is looking much better today. We reviewed his medications, and I explained that his A1c of 6.1 is good, so we will hold off on restarting Ozempic to avoid polypharmacy and potential side effects like constipation. I also advised against taking Cialis due to his underlying heart and liver conditions, and counseled him to stop using oxycodone for headaches, instructing him to call us for an alternative if needed. I discussed the plan for specialist follow-ups, emphasizing the importance of appointments with neurosurgery for the brain tumor, GI for his liver issues, and cardiology for his scheduled ablation on July 31. I explained that while I am putting in the referrals, it would be beneficial for him or his family to also call the specialists' offices to ensure appointments are scheduled. Regarding colon cancer screening, I noted that at age 75 with a recent negative Cologuard, further screening is not typically required, but I recommended he discuss it with the GI specialist. I reinforced the need to continue his 1.5-liter fluid and salt restrictions to prevent fluid reaccumulation. I have ordered a new CT scan of his lungs and bloodwork to be done in 7 weeks, and scheduled a follow-up appointment in my office in 8 weeks. Time spent 40 min due to complex medical history leading to long time on chart review and documentation. Orders: Orders AMB Hemoglobin A1c Today E13.9 - Other specified diabetes mellitus without complications Complete Blood Count no Diff 7 Weeks Z00.00 - Encounter for general adult medical examination without abnormal findings Comprehensive Met. Panel 7 Weeks Z00.00 - Encounter for general adult medical examination without abnormal findings Hemoglobin A1c 7 Weeks Z00.00 - Encounter for general adult medical examination without abnormal findings Lipid Panel 7 Weeks Z00.00 - Encounter for general adult medical examination without abnormal findings Vitamin D 25-OH Total 7 Weeks Z00.00 - Encounter for general adult medical examination without abnormal findings TSH reflex Free T4 7 Weeks Z00.00 - Encounter for general adult medical examination without abnormal findings CT chest wo IV con 7 Weeks J90 - Pleural effusion, not elsewhere classified Medications: New lactobacillus combination no.9 (Adult 50 Plus Probiotic) administer with a meal 4,000 mmu cells PO DAILY 30 caps 3RF
[2025-07-02 13:59] VITALS: BP 110/62; PULSE 73; TEMP 36.3; O2SAT 94; BMI 24.7
--- OUTSIDE RECORDS SUMMARY | 2025-07-02 16:42 | XMS_ITS | Clinical Summary ---
Author Organization [facility] Address [address] [address] Phone Care Team Providers Care Director Of Corporate Responsibility Name Role Phone Unavailable Primary Care Provider [...] Diagnosed Date Abnormal EKG 05/16/2024 CAD in [place] artery 05/16/2024 Type 2 diabetes mellitus without complication Atherosclerosis of coronary artery without angin a pectoris 07/02/2023 Stented coronary artery 07/02/2023 Mixed hyperlipidemia 01/27/2023 Essential hypertension 07/17/2022 Obstructive sleep apnea syndrome 07/17/2022 Paroxysmal atrial fibrillation 07/17/2022 Chronic lung disease 04/06/2022 Moderate mitral regurgitation 04/06/2022 Chest pain 09/23/2020 Myocardial infarction 09/23/2020 Encounters Date Type Department Care Team Description 04/02/2025 Telephone [facility] [address] [facility] [address] [place] [id number] Marian Holland from Last 3 Months Immunizations [...] to complete this topic Sigmoidoscopy Discontinued Insurance [facility] [employer] [facility] Address: [address] [place], [place] [id number] [facility] Address: [facility] [address] [place] [address] [facility] Address: [address] [place] [address]
--- OUTSIDE RECORDS SUMMARY | 2025-07-02 16:42 | XMS_ITS | Encounter Summary ---
Author Organization [facility] Address [address] [place] [address] Care Team Providers Care Sales Engineer [employer]ered Products Name Role Phone Unavailable Primary Care Provider Unavailabl e Encounter Details Date Type Department Care Team (Late st Contact Info) Description 05/17/2021 Lab Requisition [facility] [place] [address] [place] [address] Tomás Alamo PA-Krunal [address] [place], [place] [id number] Social History Tobacco Use Types Packs/Day Years Used Date Smoking Tobacco: Never Assessed Sex and Gender Information Value Date Recorded Sex Assigned at Not on file Legal Sex Male 1:21 AM [employer] Gender Identity Not on file Sexual Orientation Not on file documented as of this encounter Plan of Treatment Not on file documented as of this encounter Procedures Procedure Name Priority Date/Time Associated Diagnosis Comments PATHOLOGY Routine 05/17/2021 10:00 AM CDT documented in this encounter Results * PATHOLOGY (05/17/2021 10:00 AM CDT) CASE REPORT Surgical Pathology Report Case: [id number] Authorizing Provider: Tomás Alamo PA Collected: 05/17/2021 10:00 AM Ordering Location: [facility] Received: 05/17/2021 12:52 PM Services [place] Pathologist: Dipak Perera MD Specimens: A) - Forearm, right, LIPOMA HRCN [id number] B) - Shoulder, left, SEBACEOUS CYST 05/18/2021 10:22 AM [facility] FINAL DIAGNOSIS A. Soft tissue, right forearm, excision- Angiolipoma B. Skin, left shoulder, excision- Epidermal inclusion cyst 05/18/2021 10:22 AM [facility] Verified by Dipak [...] material. RSS 1. KM 05/18/2021 10:22 AM [facility] OPERATIVE PROCEDURE A. [id number] B. [id number] 05/18/2021 10:22 AM [facility] CLINICAL INFORMATION No Dx found. 05/18/2021 10:22 AM [facility] COMMENT [facility] Surgical cases might have been signed out in the following labs: [facility] [place] [place], CLIA#[id number] , [address], [place] [address] [facility], CLIA# [id number], [address] [place] [address] 05/18/2021 10:22 AM [facility] Tissue (Forearm, right) 05/17/2021 10:00 AM CDT 05/17/2021 12:52 PM CDT Tissue specimen (specimen) (Shoulder, left) 05/17/2021 10:22 AM CDT 05/17/2021 12:52 PM CDT Tomás Alamo PA-C PATHOLOGY/CYTOLOGY ORDERABLES Final Result [facility] CLIA# [id number] [address] [place] [address] documented in this encounter Visit Diagnoses Not on filedocumented in this encounter
--- OUTSIDE RECORDS SUMMARY | 2025-07-02 16:42 | XMS_ITS | Clinical Summary ---
Author Organization [facility] Address [address] [place] [address] Phone Care Team Providers Care Second Worker Name Role Phone Eladia Angeles DO Primary Care Provider [phone] Glen Alfaro DDS Unavailable Medications * This document contains information received from the source organization and may not represent a complete record from that organization. furosemide (Lasix) 20 mg tablet TAKE ONE (1) TABLET BY MOUTH EVERY DAY IF NEEDED - FOR FLUID, LEXT EDEMA, WEIGHT GAIN, OR SOB INSTRUCTED 30 tablet 1 04/04/20 25 Active venlafaxine XR (Effexor XR) 75 mg 24 hr capsule TAKE THREE (3) CAPSULES BY MOUTH DAILY 90 capsule 2 03/25/20 25 025 Active gabapentin (Neurontin) 400 mg capsule TAKE ONE (1) CAPSULE BY MOUTH TWICE A DAY 60 capsule 2 03/25/20 25 025 Active semaglutide (Ozempic) 1 mg/dose (4 mg/3 mL) pen-injector INJECT 1 MG UNDER THE SKIN ONCE WEEKLY 3 mL 2 03/13/20 25 025 Active cholecalcifer ol (Vitamin D-3) 125 MCG (5000 UT) capsule TAKE 1 CAPSULE BY MOUTH DAILY DIRECTED (GENERIC FOR VITAMIN D3) 30 capsule 2 03/13/20 25 025 Active tamsulosin (Flomax) 0.4 mg 24 hr capsule TAKE ONE (1) CAPSULE BY MOUTH AT BEDTIME 30 capsule 2 04/04/20 25 11/16/2 025 Active pantoprazole (Protonix) 40 mg EC tablet TAKE ONE (1) TABLET BY MOUTH TWICE A DAY (30 MINUTES PRIOR TO A MEAL) 60 tablet 2 03/25/20 Active atorvastatin (Lipitor) 40 mg tablet TAKE ONE (1) TABLET BY MOUTH EVERY DAY FOR CHOLESTEROL 30 tablet 2 04/04/20 Active cetirizine (ZyrTEC) 10 mg tablet TAKE ONE (1) TABLET BY MOUTH EVERY DAY IF NEEDED FOR ALLERGY SYMPTOMS 30 tablet 2 03/13/20 Active metoprolol tartrate (Lopressor) 25 mg tablet TAKE THREE (3) TABLETS BY MOUTH TWICE A DAY FOR BLOOD PRESSURE 180 tablet 2 04/04/20 Active buPROPion SR (Wellbutrin SR) 150 mg 12 hr tablet TAKE ONE (1) TABLET BY MOUTH AT BEDTIME 30 tablet 2 03/13/20 Active losartan (Cozaar) 50 mg tablet TAKE ONE (1) TABLET BY MOUTH TWICE A DAY FOR BLOOD PRESSURE 60 tablet 2 03/13/20 Active aspirin 81 mg EC tablet TAKE ONE (1) TABLET BY MOUTH EVERY DAY 30 tablet 2 04/04/20 Active empagliflozin (Jardiance) 25 mg TAKE ONE (1) TABLET BY MOUTH EVERY MORNING 30 tablet 2 03/13/20 Active apixaban (Eliquis) 5 mg tablet TAKE ONE (1) TABLET BY MOUTH TWICE A DAY 60 tablet 2 04/04/20 Active metFORMIN XR (Glucophage-X R) 500 mg 24 hr tablet TAKE TWO (2) TABLETS BY MOUTH EVERY EVENING 60 tablet 2 03/13/20 Active hydrALAZINE 10 mg tablet TAKE ONE (1) TABLET BY MOUTH THREE TIMES A DAY NEEDED FOR SBP> 170 MMHG OR DBP > 95 MMHG 90 tablet 03/13/20 Active fenofibrate micronized (Antara) 130 mg capsule TAKE ONE (1) CAPSULE BY MOUTH EVERY DAY 30 capsule 2 03/25/20 Active atorvastatin (Lipitor) 20 mg tablet TAKE ONE (1) TABLET BY MOUTH EVERY DAY FOR CHOLESTEROL 30 tablet 2 03/13/20 025 Discontinued([facility] prescription brought in as discontinued) metoprolol tartrate (Lopressor) 50 mg tablet TAKE ONE (1) TABLET BY MOUTH TWICE A DAY FOR BLOOD PRESSURE 60 tablet 11 02/12/20 025 Discontinued([facility] prescription brought in as discontinued) Social History Tobacco Use Types Packs/Day Years Used Date Smoking Tobacco: Never Assessed Sex and Gender Information Value Date Recorded Sex Assigned at Not on file Legal Sex Male 12:27 PM CDT Gender Identity Not on file Sexual Orientation Not on file Primary [place] Affiliation [place] Last Filed Vital Signs Vital Sign Reading Time Taken Comments Blood Pressure - - Pulse - - Temperature - - Respiratory Rate - - Oxygen Saturation - - Inhaled Oxygen Concentration - - Weight 103 kg (226 lb 10.2 oz) 04/13/2025 4:59 P M CDT Height 185.4 cm (6' 1 ) 04/13/2025 4:59 PM CDT Body Mass Index 29.9 04/13/2025 4:59 PM CDT Plan of Treatment Health Maintenance Due Date Last Done Comments Lipid Panel 1949 Diabetes: Diabetes Education 1959 Diabetes: Foot Exam 1959 Diabetes: Nutritional Counseling 1959 Diabetes: Retinopathy Screening 1959 DTaP/Tdap/Td Vaccines (2 - Td or Tdap) 07/11/2019 06/13/2019 Diabetes: Dental Exam 06/29/2023 06/29/2022, 019 RSV Vaccines (1 - 1-dose 75+ series) 2024 Echocardiogram 03/21/2024 03/21/2023, 02/15/2022 Diabetes: Urine Protein Screening 04/23/2025 04/23/2024, 12/21/2023, 10/10/2022 COVID-19 Vaccine ( season) 2025 05/28/2022, 06/11/2021, 10/22/2020, Additional history exists Influenza Vaccine (#1) 2025 , 05/28/2022, 08/28/2021, Additional history exists Creatinine Level 04/13/2026 04/13/2025, 03/2025, 04/03/2025, Additional history exists Potassium Level 04/13/2026 04/13/2025, 08/0 03/2025, 04/03/2025, Additional history exists Hepatitis C Screening Completed 10/12/2021 Pneumococcal Vaccine: 65+ Years Completed 10/13/2021, 06/10/2020, 05/31/2020 Zoster Vaccines Completed 10/13/2021, 04/30/2021 Diabetes: Hemoglobin A1C Discontinued 024, 12/21/2023, 05/15/2023, Additional history exists HIB Vaccines Aged Out No longer eligi ble based on patient's age to complete this topic HPV Vaccines Aged Out No longer eligi ble based on patient's age to complete this topic Hepatitis A Vaccines Aged Out No long er eligible based on patient's age to complete this topic Hepatitis B Vaccines Aged Out No long er eligible based on patient's age to complete this topic IPV Vaccines Aged Out No longer eligi ble based on patient's age to complete this topic Meningococcal B Vaccine Aged Out No l onger eligible based on patient's age to complete this topic Meningococcal Vaccine Aged Out No oscar tabitha eligible based on patient's age to complete this topic Rotavirus Vaccines Aged Out No longer eligible based on patient's age to complete this topic Procedures Procedure Name Priority Date/Time Associated Diagnosis Comments HISTORICAL TROPONIN I Routine 04/13/2025 7:[address] ABDOMEN PELVIS W IV CONTRAST Routine 04/13/2025 7:[address] CHEST PULMONARY EMBOLISM W IV CONTRAST Routine 04/13/2025 7:24 PM CDT XR CHEST 2 VIEWS Routine 04/13/2025 6:[address] HEAD WO IV CONTRAST Routine 5:53 PM CDT HISTORICAL SARS/FLU COMBO Routine 04/13/2025 5:52 PM CDT LIPASE Routine 04/13/2025 5:50 PM CDT COMPREHENSIVE METABOLIC PANEL Routine 04/13/2025 5:50 PM CDT CREATINE PRIME PLUS Routine 04/13/2025 5 :50 PM CDT HISTORICAL B-TYPE NATRIUETIC PEPTIDE Routine 04/13/2025 5:50 PM CDT CBC WITH AUTO DIFFERENTIAL Routine 04/13/2025 5:50 PM CDT HISTORICAL TROPONIN I Routine 04/13/2025 5:50 PM CDT POCT GLUCOSE METER UNSOLICITED RESULTS Routine 04/04/2025 11:07 AM CDT COMPREHENSIVE METABOLIC PANEL Routine 04/04/2025 7:58 AM CDT MAGNESIUM Routine 04/04/2025 7:58 AM CDT PHOSPHORUS Routine 04/04/2025 7:58 AM CDT PROCALCITONIN TEST Routine 04/04/2025 7: 58 AM CDT CBC WITH AUTO DIFFERENTIAL Routine 04/04/2025 7:58 AM CDT POCT GLUCOSE METER UNSOLICITED RESULTS Routine 04/04/2025 7:06 AM CDT POCT GLUCOSE METER UNSOLICITED RESULTS Routine 04/03/2025 9:45 PM CDT POCT GLUCOSE METER UNSOLICITED RESULTS Routine 04/03/2025 4:26 PM CDT POCT GLUCOSE METER UNSOLICITED RESULTS Routine 04/03/2025 11:53 AM CDT POCT GLUCOSE METER UNSOLICITED RESULTS Routine 04/03/2025 7:07 AM CDT HISTORICAL B-TYPE NATRIUETIC PEPTIDE Routine 04/03/2025 5:00 AM CDT COMPREHENSIVE METABOLIC PANEL Routine 04/03/2025 5:00 AM CDT HISTORICAL C-REACTIVE PROTEIN Routine 04/03/2025 5:00 AM CDT CBC WITH AUTO DIFFERENTIAL Routine 04/03/2025 5:00 AM CDT MAGNESIUM Routine 04/03/2025 5:00 AM CDT PROCALCITONIN TEST Routine 04/03/2025 5: 00 AM CDT POCT GLUCOSE METER UNSOLICITED RESULTS Routine 04/02/2025 9:40 PM CDT POCT GLUCOSE METER UNSOLICITED RESULTS Routine 04/02/2025 4:12 PM CDT ECHOCARDIOGRAM LIMITED WITH CONTRAST Routine 04/02/2025 1:[address] CHEST PULMONARY EMBOLISM W IV CONTRAST Routine 04/02/2025 7:10 AM CDT POCT GLUCOSE METER UNSOLICITED RESULTS Routine 04/02/2025 7:[address] HEAD WO IV CONTRAST Routine 7:00 AM CDT POCT GLUCOSE METER UNSOLICITED RESULTS Routine 04/02/2025 5:29 AM CDT HISTORICAL TROPONIN I Routine 04/02/2025 3:30 AM CDT XR CHEST 1 VIEW Routine 04/02/2025 2:41 AM CDT URINALYSIS WITH REFLEX CULTURE Routine 04/02/2025 1:12 AM CDT CBC WITH AUTO DIFFERENTIAL Routine 04/02/2025 12:56 AM CDT MAGNESIUM Routine 04/02/2025 12:56 AM CDT COMPREHENSIVE METABOLIC PANEL Routine 04/02/2025 12:56 AM CDT HISTORICAL B-TYPE NATRIUETIC PEPTIDE Routine 04/02/2025 12:56 AM CDT LIPASE Routine 04/02/2025 12:56 AM CDT HISTORICAL TROPONIN I Routine 04/02/2025 12:56 AM CDT OUTSIDE CARDIOLOGY SCAN 04/02/2025 MICROALBUMIN / CREATININE URINE RATIO Routine 04/23/2024 2:31 PM CDT HEMOGLOBIN A1C Routine 04/23/2024 2:31 PM CDT ECHOCARDIOGRAM 2D COMPLETE Routine 03/21/2023 1:40 PM CDT COMPREHENSIVE ORAL EVALUATION - NEW OR ESTABLISHED PATIENT Routine 06/29/2022 6:00 AM CDT HEPATITIS C ANTIBODY Routine 10/12/2021 3:01 PM STEP FINISHER from Last 3 Months or Most Recently Relevant to Health Maintenance Results * Troponin I (04/13/2025 7:47 PM CDT) Only the most recent of4 resultswithin the time period is included. HSTROPONIN I (HISTORICAL) 6.7 <=35.0 ng/L [facility] HISTORICAL RESULTING AGENCY 04/13/2025 7:47 PM CDT 04/13/2025 7:47 PM CDT Narrative [facility] HISTORICAL RESULTING AGENCY - 04/13/2025 8:20 PM CDT CAD (Coronary artery disease) Geetha Breaux DO LAB BLOOD ORDERABLES Final Re sult [facility] HISTORICAL RESULTING AGENCY * CT abdomen pelvis w IV contrast (04/13/2025 7:42 PM CDT) Anatomical Region Laterality Modality Body_Pelvis_Abd Computed Tomogra phy 04/13/2025 6:30 PM CDT 04/13/2025 7:42 PM CDT Narrative 04/13/2025 7:42 PM CDT Report: [facility] [place] [facility] PROCEDURE: CT ABD/PEL W CONTRAST REASON FOR STUDY: central pain; a-fib; abd distension/belching CT abdomen and pelvis with IV contrast. This document has been electronically signed by: Ori Carranza MD on 04/13/2025 19:42:25 All CTs at this facility use dose optimization techniques and iterative reconstructions, and/or weight-based dosing when appropriate to reduce radiation to a low as reasonably achievable. Lung bases: Small pleural effusions. Upper Abdomen: Normal-sized fatty liver without discrete lesion. Multiple gallstones within the lumen of the gallbladder which is nondistended. No gallbladder wall thickening. Normal caliber CBD. Unremarkable pancreas and spleen. Contrast opacification of the portal, superior mesenteric, and splenic veins without thrombus. Retroperitoneum/Pelvis: No adrenal mass. Abdominal aorta is of normal caliber with severe calcific atheromatous change. No pathologic para-aortic adenopathy. Kidneys without mass or hydronephrosis. No kidney stones. Bilateral perinephric stranding extending inferiorly into the iliac fossa and lateral pelvis bilaterally. Nondilated ureters without calculus. Urinary bladder of normal volume, noting mild diffuse wall thickening. Trace free fluid in the dependent pelvis. Bowel/Mesentery: No colonic obstruction or inflammation, or diverticular disease. Cecum terminates in the mid right abdomen. Normal appendix in this location. Small bowel without dilatation or mural thickening. No focal gastric lesion. No free air. Bone/Extraperitoneal Soft Tissues: Severe degenerative disc disease at L5-S1. Mild degenerative disc and facet disease at other levels. Unremarkable bony pelvis noting left femoral head bone islands. Extraperitoneal soft tissues of the abdomen and pelvis are unremarkable. Impression: 1. No bowel obstruction or inflammation, free air or fluid. 2. Bilateral perinephric stranding extending into the iliac fossa and lateral pelvis bilaterally. These findings may reflect acute or chronic inflammatory change. 3. Hepatic steatosis. 4. Cholelithiasis. 5. Other findings above. Primary Interpreting Staff: Ori Carranza MD Verified by: Ori Carranza MD Procedure Note Ori Carranza - 05/15/2025 Report: [facility] PROCEDURE: CT ABD/PEL W CONTRAST REASON FOR STUDY: central pain; a-fib; abd distension/belching CT abdomen and pelvis with IV contrast. This document has been electronically signed by: Ori Carranza MD on 04/13/2025 19:42:25 All CTs at this facility use dose optimization techniques and iterativereconstructions, and/or weight-based dosing when appropriate to reduce radiation to a low as reasonably achievable. Lung bases: Small pleural effusions. Upper Abdomen: Normal-sized fatty liver without discrete lesion. Multiple gallstones within the lumen of the gallbladder which is nondistended. No gallbladder wall thickening. Normal caliber CBD. Unremarkable pancreas and spleen. Contrast opacification of the portal, superior mesenteric, and splenic veins without thrombus. Retroperitoneum/Pelvis: No adrenal mass. Abdominal aorta is of normal caliber with severe calcific atheromatous change. No pathologic para-aortic adenopathy. Kidneys without mass or hydronephrosis. No kidney stones. Bilateral perinephric stranding extending inferiorly into the iliac fossa and lateral pelvis bilaterally. Nondilated ureters without calculus. Urinary bladder of normal volume, noting mild diffuse wall thickening. Trace free fluid in the dependent pelvis. Bowel/Mesentery: No colonic obstruction or inflammation, or diverticular disease. Cecum terminates in the mid right abdomen. Normal appendix in this location. Small bowel without dilatation or mural thickening. No focal gastric lesion. No free air. Bone/Extraperitoneal Soft Tissues: Severe degenerative disc disease at L5-S1. Mild degenerative disc and facet disease at other levels. Unremarkable bony pelvis noting left femoral head bone islands. Extraperitoneal soft tissues of the abdomen and pelvis are unremarkable. Impression: 1. No bowel obstruction or inflammation, free air or fluid. 2. Bilateral perinephric stranding extending into the iliac fossa and lateral pelvis bilaterally. These findings may reflect acute or chronic inflammatory change. 3. Hepatic steatosis. 4. Cholelithiasis. 5. Other findings above. Primary Interpreting Staff: Ori Carranza MD Verified by: Ori Carranza MD [facility] DO IMG CT PROCEDURES Final Resul t * CT chest pulmonary embolism w IV contrast (04/13/2025 7:24 PM CDT) Only the most recent of2 resultswithin the time period is included. Anatomical Region Laterality Modality Body_Chest Computed Tomogra phy 04/13/2025 6:30 PM CDT 04/13/2025 7:24 PM CDT Narrative 04/13/2025 7:24 PM CDT Report: [facility] [place] [facility] PROCEDURE: CTA CHEST W/ CONTRAST (PE) REASON FOR STUDY: central pain; a-fib; abd distension/belching CT angiogram of chest with MIP postprocessing: Comparison: CT - CTA CHEST W/ CONTRAST (PE) - 04/02/25 05:34 CDT FINDINGS: This document has been electronically signed by: Ori Carranza MD on 04/13/2025 19:24:36 All CTs at this facility use dose optimization techniques and iterative reconstructions, and/or weight-based dosing when appropriate to reduce radiation to a low as reasonably achievable. Thoracic aorta: Normal caliber with moderate calcific atheromatous change, insufficient intraluminal contrast opacification to assess for dissection. Mediastinum/heart: Heart size is normal. Mildly dilated left ventricle and atrium. No pericardial effusion. Moderate coronary artery mural calcifications. Mild mediastinal lymphadenopathy. Trachea and mainstem bronchi of normal caliber without intraluminal lesion. Visualized thyroid gland without mass or enlargement. Esophagus without significant distention or evidence of mass. Lungs/pleura: Patchy interlobular septal thickening and peripheral interstitial scarring bilaterally. Posterior right upper lobe subsegmental atelectasis. Small bilateral pleural effusions. No pneumothorax. No bronchiectasis or bullous disease. Uppermost abdomen: Cholelithiasis. No adrenal mass. Contrast refluxes into mildly dilated hepatic veins. Bone/MSK: Mild spondylosis of the thoracic spine. No acute fracture involving the visualized bony thorax. No destructive osseous lesion. Impression: 1. 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 No evidence of acute occlusive intraluminal thrombus/pulmonary embolism. 2. Normal caliber thoracic aorta with moderate calcific atheromatous change. Insufficient intraluminal contrast opacification to assess for dissection. 3. Interlobular septal thickening and small bilateral pleural effusions. Findings may reflect mild CHF noting a normal heart size with mildly dilated left ventricle and atrium. 4. Contrast refluxes into the hepatic veins which may reflect elevated right cardiac pressure. 5. Other findings above. Primary Interpreting Staff: Ori Carranza MD Verified by: Ori Carranza MD Procedure Note Tere Ori - 05/15/2025 Report: [facility] [place] PROCEDURE: CTA CHEST W/ CONTRAST (PE) REASON FOR STUDY: central pain; a-fib; abd distension/belching CT angiogram of chest with MIP postprocessing: Comparison: CT - CTA CHEST W/ CONTRAST (PE) - 04/02/25 05:34 CDT FINDINGS: This document has been electronically signed by: Ori Carranza MD on 04/13/2025 19:24:36 All CTs at this facility use dose optimization techniques and iterativereconstructions, and/or weight-based dosing when appropriate to reduce radiation to a low as reasonably achievable. Thoracic aorta: Normal caliber with moderate calcific atheromatous change, insufficient intraluminal contrast opacification to assess for dissection. Mediastinum/heart: Heart size is normal. Mildly dilated left ventricle and atrium. No pericardial effusion. Moderate coronary artery mural calcifications. Mild mediastinal lymphadenopathy. Trachea and mainstem bronchi of normal caliber without intraluminallesion. Visualized thyroid gland without mass or enlargement. Esophagus without significant distention or evidence of mass. Lungs/pleura: Patchy interlobular septal thickening and peripheral interstitial scarring bilaterally. Posterior right upper lobe subsegmental atelectasis. Small bilateral pleural effusions. No pneumothorax. No bronchiectasis or bullous disease. Uppermost abdomen: Cholelithiasis. No adrenal mass. Contrast refluxes into mildly dilated hepatic veins. Bone/MSK: Mild spondylosis of the thoracic spine. No acute fracture involving the visualized bony thorax. No destructive osseous lesion. Impression: 1. 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 No evidence of acute occlusive intraluminal thrombus/pulmonary embolism. 2. Normal caliber thoracic aorta with moderate calcific atheromatous change. Insufficient intraluminal contrast opacification to assess for dissection. 3. Interlobular septal thickening and small bilateral pleural effusions. Findings may reflect mild CHF noting a normal heart size with mildly dilated left ventricle and atrium. 4. Contrast refluxes into the hepatic veins which may reflect elevated right cardiac pressure. 5. Other findings above. Primary Interpreting Staff: Ori Carranza MD Verified by: Ori Carranza MD Geetha Breaux DO IMG CT PROCEDURES Final Resul t * XR chest 2 views (04/13/2025 6:01 PM CDT) Anatomical Region Laterality Modality Chest Radiographic Radha ging 04/13/2025 5:17 PM CDT 04/13/2025 6:01 PM CDT Narrative 04/13/2025 6:01 PM CDT Report: [facility] [place] PROCEDURE: CHEST 2 VIEW This document has been electronically signed by: Erwin Dexter MD on 04/13/2025 18:01:58 Two views of the chest. COMPARISON: CT angiogram chest dated 04/02/25 at 05:34 CDT XR chest dated 04/02/25 at 01:16 CDT FINDINGS: Normal heart and mediastinal contours. Hyperinflation. Right lower lobe 5 mm pulmonary nodule, better characterized on recent CT of the chest. Previously seen interstitial and airspace opacities have improved with minimal residual interstitial opacities most pronounced in the right upper lobe. No pneumothorax. No acute fracture. Impression: 1. Small right pleural effusion. 2. Interval improvement in multifocal pneumonia and/or pulmonary edema. 3. Hyperinflation. Primary Interpreting Staff: Erwin Dexter MD Verified by: Erwin Dexter MD Procedure Note Erwin Dexter - 05/15/2025 Report: [facility] [place] PROCEDURE: CHEST 2 VIEW This document has been electronically signed by: Erwin Dexter MD on 04/13/2025 18:01:58 Two views of the chest. COMPARISON: CT angiogram chest dated 04/02/25 at 05:34 CDT XR chest dated 04/02/25 at 01:16 CDT FINDINGS: Normal heart and mediastinal contours. Hyperinflation. Right lower lobe 5 mm pulmonary nodule, better characterized on recent CT of the chest. Previously seen interstitial and airspace opacities have improved with minimal residual interstitial opacities most pronounced in the right upper lobe. No pneumothorax. No acute fracture. Impression: 1. Small right pleural effusion. 2. Interval improvement in multifocal pneumonia and/or pulmonary edema. 3. Hyperinflation. Primary Interpreting Staff: Erwin Dexter MD Verified by: Erwin Dexter MD Geetha Breaux DO IMG XR PROCEDURES Final Resul t * CT head wo IV contrast (04/13/2025 5:53 PM CDT) Only the most recent of2 resultswithin the time period is included. Anatomical Region Laterality Modality Head_Neck Computed Tomogra phy 04/13/2025 5:28 PM CDT 04/13/2025 5:53 PM CDT Narrative 04/13/2025 5:53 PM CDT Report: [facility] [place] PROCEDURE: CT HEAD W/O CONT This document has been electronically signed by: Erwin Dexter MD on 04/13/2025 17:53:26 All CTs at this facility use dose optimization techniques and iterative reconstructions, and/or weight-based dosing when appropriate to reduce radiation to a low as reasonably achievable. CT head dated 04/02/25 at 05:[address] head dated 04/23/24 at 22:32 CDT FINDINGS: The visualized paranasal sinuses are clear. The mastoid air cells are clear. No calvarial fracture. No evidence for mass or mass effect. No intracranial hemorrhage or abnormal extra-axial fluid collection. No CT evidence of acute infarct. The ventricles are proportional with the degree of mild global cerebral volume loss without evidence of hydrocephalus. Basilar cisterns are patent. There are periventricular areas of low attenuation compatible with mild white matter small vessel disease. 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 Impression: 1. No acute intracranial findings. 2. 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 Consider nonemergent contrast enhanced MR for further characterization if not already performed. Primary Interpreting Staff: Erwin Dexter MD Verified by: Erwin Dexter MD Procedure Note Erwin Dexter - 05/15/2025 Report: [facility] [place] PROCEDURE: CT HEAD W/O CONT This document has been electronically signed by: Erwin Dexter MD on 04/13/2025 17:53:26 All CTs at this facility use dose optimization techniques and iterativereconstructions, and/or weight-based dosing when appropriate to reduce radiation to a low as reasonably achievable. CT head dated 04/02/25 at 05:[address] head dated 04/23/24 at 22:32 CDT FINDINGS: The visualized paranasal sinuses are clear. The mastoid air cells are clear. No calvarial fracture. No evidence for mass or mass effect. No intracranial hemorrhage or abnormal extra-axial fluid collection. No CT evidence of acute infarct. The ventricles are proportional with the degree of mild global cerebral volume loss without evidence of hydrocephalus. Basilar cisterns are patent. There are periventricular areas of low attenuation compatible with mild white matter small vessel disease. 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 Impression: 1. No acute intracranial findings. 2. 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 Consider nonemergent contrast enhanced MR for further characterization if not already performed. Primary Interpreting Staff: Erwin Dexter MD Verified by: Erwin Dexter MD us Geetha Breaux DO IMG CT PROCEDURES Final Resul t * HISTORICAL SARS/FLU COMBO (04/13/2025 5:52 PM CDT) FLU SCREEN A (HISTORICAL) Negative Neg [facility] HISTORICAL RESULTING AG[facility]Y FLU SCREEN B (HISTORICAL) Negative Neg [facility] HISTORICAL RESULTING AG[facility]Y Comment: Interpretation Flu A and Flu B Screen results must be evaluated in conjunction with other clinical data available to the physician. Sars Screen neg Negative [facility] Comment: Interpretation All negative SARS-CoV-2 results are presumptive and should be confirmed with a molecular assay if clinical presentation does not match results. 04/13/2025 5:52 PM CDT 04/13/2025 5:52 PM CDT Narrative [facility] - 04/13/2025 6:14 PM CDT Chronic obstructive lung disease Geethagael Breaux DO LAB BLOOD ORDERABLES Final Re sult [facility] * (ABNORMAL) Creatinine Prime+ (04/13/2025 5:50 PM CDT) CREATININE PRIME+ (HISTORICAL) 1.50(H) 0.7 - 1.3 mg/dL [facility] Comment:~For STAT Imaging Re quirements EST GFR (HISTORICAL) 47.95(L) >=60 mL/min [facility] Comment:~For STAT Imaging Re quirements 04/13/2025 5:50 PM CDT 04/13/2025 5:50 PM CDT Narrative [facility] - 04/13/2025 6:00 PM CDT Chronic [facility] Final Re sult [facility] * (ABNORMAL) CBC with Auto Differential (04/13/2025 5:50 PM CDT) Only the most recent of4 resultswithin the time period is included. WBC (HISTORICAL) 8.29 4.5 - 10.8 10~3/uL [facility] RBC (HISTORICAL) 4.65 4.4 - 5.8 10~6/uL [facility] HEMOGLOBIN (HISTORICAL) 13.8 13.5 - 17 g/dL [facility] HEMATOCRIT (HISTORICAL) 43.0 41.5 - 53.5 % [facility] MCV (HISTORICAL) 92.5 84 - 100 fL [facility] MCH (HISTORICAL) 29.7 27.5 - 33.2 pg [facility] MCHC (HISTORICAL) 32.1(L) 32.7 - 35.5 g/dL [facility] RDW% (HISTORICAL) 14.7(H) 11.5 - 14.5 % [facility] PLATELET COUNT (HISTORICAL) 243 150 - 430 10~3/uL [facility] MPV (HISTORICAL) 12.0(H) 7.4 - 10.4 fL [facility] GRAN% (HISTORICAL) 61.5 43.0 - 65.0 % [facility] LY% (HISTORICAL) 26.1 20.5 - 45.5 % [facility] MO% (HISTORICAL) 10.9 5.5 - 11.7 % [facility] EO% (HISTORICAL) 0.6(L) 0.9 - 2.9 % [facility] BA% (HISTORICAL) 0.7 0.2 - 1.0 % [facility] IMM GRAN% (HISTORICAL) 0.2 0.0 - 0.7 % [facility] NRBC/100 WBC (HISTORICAL) 0.0 0 - 0 /100WBC [facility] GRAN# (HISTORICAL) 5.10(H) 2.2 - 4.8 10~3/uL [facility] LY# (HISTORICAL) 2.16 1.3 - 2.9 10~3/uL [facility] MO# (HISTORICAL) 0.90(H) 0.3 - 0.8 10~3/uL [facility] EO# (HISTORICAL) 0.05 0.0 - 0.2 10~3/uL [facility] BA# (HISTORICAL) 0.06 0.0 - 0.1 10~3/uL [facility] IMM GRAN# (HISTORICAL) 0.02 0.0 - 0.05 10~3/uL [facility] NRBC# (HISTORICAL) 0.00 0 - 0.012 10~3/uL [facility] 04/13/2025 5:50 PM CDT 04/13/2025 5:50 PM CDT Narrative [facility] - 04/13/2025 6:31 PM CDT Chronic obstructive lung disease Geetha Breaux DO LAB BLOOD ORDERABLES Final Re sult [facility] * (ABNORMAL) Historical B-type natriuretic peptide (04/13/2025 5:50 PM CDT) Only the most recent of3 resultswithin the time period is included. BNP (HISTORICAL) 3437.0(H) <135 pg/mL [facility] 04/13/2025 5:50 PM CDT 04/13/2025 5:50 PM CDT Narrative [facility] - 04/13/2025 6:33 PM CDT Chronic obstructive lung disease Geetha Saeid DO LAB BLOOD ORDERABLES Final Re sult Performing Organization Address City/State/ZIP Nv de Phone Number [facility] * Lipase (04/13/2025 5:50 PM CDT) Only the most recent of2 resultswithin the time period is included. LIPASE (HISTORICAL) 26 <61 U/L [facility] 04/13/2025 5:50 PM CDT 04/13/2025 5:50 PM CDT Narrative [facility] - 04/13/2025 6:28 PM CDT Chronic obstructive lung disease Geetha Saeid DO LAB BLOOD ORDERABLES Final Re sult Performing Organization Address City/[facility] de Phone Number [facility] * (ABNORMAL) Comprehensive metabolic panel (04/13/2025 5:50 PM CDT) Only the most recent of4 resultswithin the time period is included. GLUCOSE (HISTORICAL) 107(H) 74 - 100 mg/dL [facility] UREA NITROGEN (HISTORICAL) 20 7 - 25.7 mg/dL [facility] CREATININE (HISTORICAL) 1.54(H) 0.57 - 1.25 mg/dL [facility] EST GFR (HISTORICAL) 46.46(L) >=60 ml/min [facility] BUN/CREATININE (HISTORICAL) 13.0 [facility] SODIUM (HISTORICAL) 138 136 - 145 mmol/L [facility] POTASSIUM (HISTORICAL) 3.7 3.5 - 5.1 mmol/L [facility] CHLORIDE (HISTORICAL) 102 98 - 107 mmol/L [facility] CO2 (HISTORICAL) 24 22 - 31 mmol/L [facility] ANION GAP (HISTORICAL) 12.0 6 - 17 mmol/L [facility] CALCIUM (HISTORICAL) 9.4 8.4 - 10.2 mg/dL [facility] TOTAL PROTEIN (HISTORICAL) 6.6 6.4 - 8.3 g/dL [facility] ALBUMIN GDL (HISTORICAL) 3.8 3.1 - 4.5 g/dL [facility] GLOBULIN (HISTORICAL) 2.8 2.6 - 4.3 g/dL [facility] A/G RATIO (HISTORICAL) 1.4 [facility] BILIRUBIN,TOTAL (HISTORICAL) 1.2 0.3 - 1.2 mg/dL [facility] ALKALINE PHOSPHATASE (HISTORICAL) 49 40 - 150 U/L [facility] AST (HISTORICAL) 113(H) 11 - 34 U/L [facility] ALT (HISTORICAL) 64(H) 0 - 55 U/L [facility] 04/13/2025 5:50 PM CDT 04/13/2025 5:50 PM CDT Narrative [facility] - 04/13/2025 6:28 PM CDT Chronic obstructive lung disease Geetha Breaux DO LAB BLOOD ORDERABLES Final Re sult [facility] * POCT glucose meter (04/04/2025 11:07 AM CDT) Only the most recent of10 resultswithin the time period is included. POC GLUCOSE(POCT) (HISTORICAL) 83 74 - 106 mg/dL [facility] 04/04/2025 11:0 7 AM CDT 04/04/2025 11:07 AM CDT Narrative [facility] - 04/04/2025 11:36 AM CDT Diabetes mellitus Ori Blackwell MD LAB POINT OF CARE TE ST DOCKED DEVICE UNSOLICITED RESULTS Final Result [facility] * Procalcitonin (04/04/2025 7:58 AM CDT) Only the most recent of2 resultswithin the time period is included. PROCALCITONIN (PCT) (HISTORICAL) 0.02 <0.5 ng/mL [facility] Comment: Interpretation Concentrations < 0.5 ng/mL Represent Low Risk of Sepsis. Concentrations > 2.0 ng/mL Represent High Risk of Sepsis. Retesting may be recommended in 6 - 24 hrs if values are between 0.5 - 2.0 ng/mL and sepsis is suspected. Reference Range Not Established for Newborns < 72 Hours of Age. 04/04/2025 7:58 AM CDT 04/04/2025 7:58 AM CDT Narrative [facility] - 04/04/2025 8:58 AM CDT Congestive heart failure us Dipak Rodriguez MD LAB BLOOD ORDERABLES Final Resul t Performing Organization Address [facility] de Phone Number [facility] * Phosphorus (04/04/2025 7:58 AM CDT) PHOSPHORUS (HISTORICAL) 3.3 2.5 - 4.5 mg/dL [facility] 04/04/2025 7:58 AM CDT 04/04/2025 7:58 AM CDT Narrative [facility] - 04/04/2025 8:39 AM CDT Congestive heart failure us Dipak Rodriguez MD LAB BLOOD ORDERABLES Final Resul t Performing Organization Address [facility] Phone Number [facility] * Magnesium (04/04/2025 7:58 AM CDT) Only the most recent of3 resultswithin the time period is included. MAGNESIUM (HISTORICAL) 1.9 1.6 - 2.6 mg/dL [facility] 04/04/2025 7:58 AM CDT 04/04/2025 7:58 AM CDT Narrative [facility] - 04/04/2025 8:39 AM CDT Congestive heart failure us Dipak Rodriguez MD LAB BLOOD ORDERABLES Final Resul t Performing Organization Address [facility] de Phone Number [facility] * (ABNORMAL) HISTORICAL C-REACTIVE PROTEIN (04/03/2025 5:00 AM CDT) C-REACTIVE PROTEIN HS (HISTORICAL) 6.696(H) <5.0 mg/L [facility] 04/03/2025 5:00 AM CDT 04/03/2025 5:00 AM CDT Narrative [facility] - 04/03/2025 6:49 AM CDT CAD (Coronary artery disease) us Ori Blackwell MD LAB BLOOD ORDERABLES Final Resul t [facility] * Echocardiogram limited with contrast (04/02/2025 1:35 PM CDT) Anatomical Region Laterality Modality Ultrasound 04/02/2025 6:02 AM CDT 04/02/2025 1:35 PM CDT Narrative 04/02/2025 1:35 PM CDT Report: Transthoracic Echocardiogram Patient Name: STONE POE EAPatient ID: [id number] : [id number] Date: 04/02/2025 9:07:02 AM Gender: MAccession #: [id number] Tech: TPLocation: [facility] BSA: 2.21Weight(Kg): 95.3 Heart Rate: 70Quality: Good PROCEDURES: Echocardiographic Report: Transthoracic echocardiogram with complete 2D, M-Mode, and Doppler examination. INDICATIONS: Congestive Heart Failure exacerbation. Measurements: 2D/MM Value Range IVSd 2D 1.2 cm LVIDd 2D 4.9 cm LVIDs 2D 3.3 cm LVPWd 2D 1.2 cm EDV Mod 4C 120.0 ml EDV Mod BP 136.0 ml ESV Teich 2D 50.9 ml ESV Mod 4C 53.7 ml ESV Mod BP 56.2 ml EF Teich 2D 59.0 percent EF Mod 4C 55.3 percent ACS MM 2.2 cm AoR Diam MM 3.7 cm LA Dimension MM 4.1 cm LA Volume 2C 57.3 ml LA Volume 4C 65.7 ml RA Minor 4.0 cm LVOT Diam 2.1 cm 2D/MM Value Range Doppler Value Range LIEN Vmax 2.0 cm2 LIEN VTI 2.0 cm2 AV Mean Tristan 0.9 m/s AV Mean PG 4.0 mmHg AV Peak Tristan 1.2 m/s AV Peak PG 6.0 mmHg AV VTI 23.6 cm LVOT Peak Tristan 0.7 m/s LVOT VTI 13.7 cm MR Peak Tristan 5.3 m/s MR Peak PG 109.0 mmHg TR Peak Tristan 2.9 m/s TR Peak PG 33.0 mmHg PV Peak Tristan 0.7 m/s PV Peak PG 2.0 mmHg Pulm Aranda Tristan 0.7 m/s Pulm S/D Ratio 0.6 percent Pulm Sys Tristan 0.4 m/s Doppler Value Range - FINDINGS: Left Ventricle: Normal left ventricular cavity size. Mild concentric left ventricular hypertrophy. Ejection fraction is visually estimated at 55-60 %. Right Ventricle: Normal right ventricular size. Left Atrium: The left atrium is normal in size. Right Atrium: The right atrium is normal in size. Atrial Septum: Normal atrial septum. Mitral Valve: Moderate mitral valve regurgitation. Aortic Valve: No significant aortic stenosis or insufficiency. Aortic valve not well visualized. Tricuspid Valve: Estimated peak RVSP is 45 mmHg. There is mild tricuspid regurgitation. Pulmonic Valve: Normal pulmonic valve appearance and function. Pericardium: Normal pericardium with no significant pericardial effusion. Aorta: Normal aortic root. IVC: Normal size and normal respiratory collapse consistent with normal right atrial pressure (<5 mmHg). Pulmonary Artery: Normal pulmonary artery size. Impression: CONCLUSIONS: Ejection fraction is visually estimated at 55-60 %. Estimated peak RVSP is 45 mmHg. Electronically Signed By: Wood Brasher M.D. 2025-04-02 13:35:06 CDT Primary Interpreting Staff: Verified by: NO COMPLICATION Procedure Note Provider, Historical [facility] - 05/15/2025 Report: Transthoracic Echocardiogram Patient Name: STONE POE EAPatient ID: [id number] : [id number] Date: 04/02/2025 9:07:02 AM Gender: MAccession #: [id number] Tech: TPLocation: [facility] BSA: 2.21Weight(Kg): 95.3 Heart Rate: 70Quality: Good PROCEDURES: Echocardiographic Report: Transthoracic echocardiogram with complete 2D, M-Mode, and Doppler examination. INDICATIONS: Congestive Heart Failure exacerbation. Measurements: 2D/MM Value Range IVSd 2D 1.2 cm LVIDd 2D 4.9 cm LVIDs 2D 3.3 cm LVPWd 2D 1.2 cm EDV Mod 4C 120.0 ml EDV Mod BP 136.0 ml ESV Teich 2D 50.9 ml ESV Mod 4C 53.7 ml ESV Mod BP 56.2 ml EF Teich 2D 59.0 percent EF Mod 4C 55.3 percent ACS MM 2.2 cm AoR Diam MM 3.7 cm LA Dimension MM 4.1 cm LA Volume 2C 57.3 ml LA Volume 4C 65.7 ml RA Minor 4.0 cm LVOT Diam 2.1 cm 2D/MM Value Range Doppler Value Range LIEN Vmax 2.0 cm2 LIEN VTI 2.0 cm2 AV Mean Tristan 0.9 m/s AV Mean PG 4.0 mmHg AV Peak Tristan 1.2 m/s AV Peak PG 6.0 mmHg AV VTI 23.6 cm LVOT Peak Tristan 0.7 m/s LVOT VTI 13.7 cm MR Peak Tristan 5.3 m/s MR Peak PG 109.0 mmHg TR Peak Tristan 2.9 m/s TR Peak PG 33.0 mmHg PV Peak Tristan 0.7 m/s PV Peak PG 2.0 mmHg Pulm Aranda Tristan 0.7 m/s Pulm S/D Ratio 0.6 percent Pulm Sys Tristan 0.4 m/s Doppler Value Range - FINDINGS: Left Ventricle: Normal left ventricular cavity size. Mild concentric left ventricular hypertrophy. Ejection fraction is visually estimated at 55-60 %. Right Ventricle: Normal right ventricular size. Left Atrium: The left atrium is normal in size. Right Atrium: The right atrium is normal in size. Atrial Septum: Normal atrial septum. Mitral Valve: Moderate mitral valve regurgitation. Aortic Valve: No significant aortic stenosis or insufficiency. Aortic valve not well visualized. Tricuspid Valve: Estimated peak RVSP is 45 mmHg. There is mild tricuspid regurgitation. Pulmonic Valve: Normal pulmonic valve appearance and function. Pericardium: Normal pericardium with no significant pericardial effusion. Aorta: Normal aortic root. IVC: Normal size and normal respiratory collapse consistent with normal right atrial pressure (<5 mmHg). Pulmonary Artery: Normal pulmonary artery size. Impression: CONCLUSIONS: Ejection fraction is visually estimated at 55-60 %. Estimated peak RVSP is 45 mmHg. Electronically Signed By: Wood Brasher M.D. 2025-04-02 13:35:06 CDT Primary Interpreting Staff: Verified by: NO COMPLICATION Ori Blackwell MD CV ECHO PROCEDURES Final Result * XR chest 1 view (04/02/2025 2:41 AM CDT) Anatomical Region Laterality Modality Chest Radiographic Radha ging 04/02/2025 1:04 AM CDT 04/02/2025 2:41 AM CDT Narrative 04/02/2025 2:41 AM CDT Report: [facility] [place] This document has been electronically signed by: Nazario Geller MD on 04/02/2025 02:41:05 REASON FOR STUDY: Chest pain Chest X-ray, 1 View COMPARISON: DX/SR - CHEST 1 VIEW - 04/28/24 12:43 CDT FINDINGS: Diffuse bilateral airspace and interstitial opacities. No pleural effusion. No pneumothorax. No cardiomegaly. No acute fracture. Impression: Bilateral airspace and interstitial opacities, which could be due to atypical pneumonia and/or pulmonary edema. Primary Interpreting Staff: Nazario Geller MD Verified by: Nazario Geller MD Procedure Note Nazario Geller - 05/15/2025 Report: [facility] [place] This document has been electronically signed by: Nazario Geller MD on 04/02/2025 02:41:05 REASON FOR STUDY: Chest pain Chest X-ray, 1 View COMPARISON: DX/SR - CHEST 1 VIEW - 04/28/24 12:43 CDT FINDINGS: Diffuse bilateral airspace and interstitial opacities. No pleural effusion. No pneumothorax. No cardiomegaly. No acute fracture. Impression: Bilateral airspace and interstitial opacities, which could be due to atypical pneumonia and/or pulmonary edema. Primary Interpreting Staff: Nazario Geller MD Verified by: Nazario Geller MD us [facility] IMG XR PROCEDURES Final Result * (ABNORMAL) Urinalysis with reflex culture (04/02/2025 1:12 AM CDT) URINE COLOR (HISTORICAL) Yellow Lt Yellow-Will ow [facility] Comment: 1+ CALCIUM OXALATE CRYSTALS Slide Reviewed URINE CLARITY (HISTORICAL) Clear Clear-Slt Hazy [facility] Comment: 1+ CALCIUM OXALATE CRYSTALS Slide Reviewed URINE GLUCOSE (HISTORICAL) 3+ Neg [facility] Comment: 1+ CALCIUM OXALATE CRYSTALS Slide Reviewed URINE BILIRUBIN (HISTORICAL) Negative Neg [facility] Comment: 1+ CALCIUM OXALATE CRYSTALS Slide Reviewed URINE KETONES (HISTORICAL) Negative Neg [facility] Comment: 1+ CALCIUM OXALATE CRYSTALS Slide Reviewed SPECIFIC GRAVITY (HISTORICAL) 1.026 1.001 - 1.035 [facility] Comment: 1+ CALCIUM OXALATE CRYSTALS Slide Reviewed URINE BLOOD (HISTORICAL) Negative Neg-Trace [facility] Comment: 1+ CALCIUM OXALATE CRYSTALS Slide Reviewed URINE PH (HISTORICAL) 6.0 5.0 - 9.0 [facility] Comment: 1+ CALCIUM OXALATE CRYSTALS Slide Reviewed URINE PROTEIN,QUAL (HISTORICAL) Trace Neg [facility] Comment: 1+ CALCIUM OXALATE CRYSTALS Slide Reviewed URINE UROBILINOGEN (HISTORICAL) 2.0(H) 0.1 - 1.0 EU/dL [facility] Comment: 1+ CALCIUM OXALATE CRYSTALS Slide Reviewed URINE NITRITE (HISTORICAL) Negative Neg [facility] Comment: 1+ CALCIUM OXALATE CRYSTALS Slide Reviewed URINE LEUKOCYTE ESTERASE (HISTORICAL) Negative Neg [facility] Comment: 1+ CALCIUM OXALATE CRYSTALS Slide Reviewed CRYSTALS (HISTORICAL) 1+ [facility] Comment: 1+ CALCIUM OXALATE CRYSTALS Slide Reviewed UWBC (HISTORICAL) 0-2 0 - 2 /hpf [facility] Comment: 1+ CALCIUM OXALATE CRYSTALS Slide Reviewed URBC (HISTORICAL) 0-2 0 - 2 /hpf [facility] Comment: 1+ CALCIUM OXALATE CRYSTALS Slide Reviewed UEPITHELIAL CELLS (HISTORICAL) 0-2 0 - 2 /hpf [facility] Comment: 1+ CALCIUM OXALATE CRYSTALS Slide Reviewed UHYAL CASTS (HISTORICAL) 0-2 0 - 2 /lpf [facility] Comment: 1+ CALCIUM OXALATE CRYSTALS Slide Reviewed UBACTERIA (HISTORICAL) None Seen Negative cells/uL [facility] Comment: 1+ CALCIUM OXALATE CRYSTALS Slide Reviewed CULTURE IF INDICATED (HISTORICAL) Not Indicated by UA, Not Cultured [facility] Comment: 1+ CALCIUM OXALATE CRYSTALS Slide Reviewed TECH COMMENT: (HISTORICAL) See Additional Comment [facility] Comment: 1+ CALCIUM OXALATE CRYSTALS Slide Reviewed 04/02/2025 1:12 AM CDT 04/02/2025 1:12 AM CDT Narrative [facility] - 04/02/2025 1:43 AM CDT Chest pain us Teo SAN LAB URINE ORDERABLES Final Resul t Performing Organization Address City/[facility] de Phone Number [facility] * OUTSIDE CARDIOLOGY SCAN (04/02/2025) Anatomical Region Laterality Modality Other Narrative 04/02/2025 Ordered by an unspecified provider. us Scanned Documents Conversion Provider OUTSIDE SC AN Final Result * (ABNORMAL) Microalbumin / creatinine urine ratio (04/23/2024 2:31 PM CDT) Creatinine, Urine, Quant 76.63 Not Estab. mg/dL [facility] Albumin, Urine Quant 43.084 Not Estab. ug/mL [facility] URINE ALB/CRE RATIO (HISTORICAL) 56(H) 0.0 - 30.0 mg/g [facility] 04/23/2024 2:3 1 PM CDT 04/23/2024 2:31 PM CDT Narrative [facility] - 04/23/2024 3:18 PM CDT Type 2 diabetes mellitus us Eladia Angeles DO LAB URINE ORDERABLES Final Resu lt Performing Organization Address [facility] de Phone Number [facility] * (ABNORMAL) Hemoglobin A1c (04/23/2024 2:31 PM CDT) HEMOGLOBIN A1C (HISTORICAL) 6.5(H) <5.7 % [facility] Comment: Interpretation Prediabetes: 5.7 - 6.4% Diabetes: >6.4% Glycemic control for adults with diabetes: <7.0% EST AVERAGE GLUCOSE (HISTORICAL) 140 mg/dl [facility] CHROMATOGRAPH (HISTORICAL) acceptable [facility] 04/23/2024 2:31 PM CDT 04/23/2024 2:31 PM CDT Narrative [facility] - 04/23/2024 4:57 PM CDT Type 2 diabetes mellitus us Eladia Angeles DO LAB BLOOD ORDERABLES Final Resu lt [facility] * Echocardiogram 2D complete (03/21/2023 1:40 PM CDT) Anatomical Region Laterality Modality Ultrasound 01/26/2023 10:2 2 AM CDT 03/21/2023 1:40 PM CDT Narrative 03/21/2023 1:40 PM CDT Report: Transthoracic Echocardiogram Patient Name: STONE POE EAPatient ID: [id number] : [id number] Date: 03/21/2023 11:54:41 AM Gender: MAccession #: [id number] Tech: TWLocation: [facility] BSA: 2.33Weight(Kg): 105.7 Heart Rate: 58Quality: Good PROCEDURES: Echocardiographic Report: Transthoracic echocardiogram with complete 2D, M-Mode, and Doppler examination. INDICATIONS: Mitral Regurgitation. Measurements: 2D/MM Value Range IVSd 2D 1.2 cm LVIDd 2D 5.4 cm LVIDs 2D 3.6 cm LVPWd 2D 1.0 cm EDV Mod 4C 129.0 ml EDV Mod BP 118.0 ml ESV Teich 2D 54.4 ml ESV Mod 4C 39.2 ml ESV Mod BP 42.2 ml EF Teich 2D 63.0 percent EF Mod 4C 69.6 percent ACS MM 2.2 cm AoR Diam MM 3.7 cm LA Dimension MM 5.1 cm LA Volume 2C 57.3 ml LA Volume 4C 63.2 ml RA Minor 3.0 cm LVOT Diam 2.0 cm MV Decel Time 338.00 msec 2D/MM Value Range Doppler Value Range LIEN Vmax 2.6 cm2 LIEN VTI 2.5 cm2 AV Mean Tristan 1.0 m/s AV Mean PG 4.0 mmHg AV Peak Tristan 1.4 m/s AV Peak PG 8.0 mmHg AV VTI 33.3 cm LVOT Peak Tristan 1.1 m/s LVOT VTI 26.8 cm IVRT 151.0 msec MV E Peak Tristan 0.6 m/s MV A Peak Tristan 0.9 m/s MV E/A 0.6 ratio MV PHT 99.0 msec MVA PHT 2.2 cm2 MR Peak Tristan 5.1 m/s MR Peak PG 118.0 mmHg TR Peak Tristan 1.5 m/s TR Peak PG 9.0 mmHg PV Peak Tristan 0.9 m/s PV Peak PG 3.0 mmHg Pulm Aranda Tristan 0.5 m/s Pulm S/D Ratio 0.8 percent Pulm Sys Tristan 0.4 m/s Pvein A Dur 143.0 sec Pvein Atrial Rev Vel0.4 m/s Doppler Value Range - FINDINGS: Left Ventricle: Normal left ventricular cavity size. Normal left ventricular wall thickness. Ejection fraction is visually estimated at 60-65 %. Right Ventricle: Normal right ventricular size. Left Atrium: The left atrium is normal in size. Right Atrium: The right atrium is normal in size. Atrial Septum: Normal atrial septum. Mitral Valve: Moderate mitral valve regurgitation. Aortic Valve: Normal appearance and function of the aortic valve. Tricuspid Valve: Estimated peak RVSP is 12 mmHg. There is trivial tricuspid regurgitation. Pulmonic Valve: Normal pulmonic valve appearance and function. Pericardium: Normal pericardium with no significant pericardial effusion. Aorta: Normal aortic root. IVC: Normal size and normal respiratory collapse consistent with normal right atrial pressure (<5 mmHg). Pulmonary Artery: Normal pulmonary artery size. Impression: CONCLUSIONS: Ejection fraction is visually estimated at 60-65 %. Moderate mitral valve regurgitation. Electronically Signed By: Wood Brasher M.D. 2023-03-21 13:39:05 CDT Primary Interpreting Staff: Verified by: NO COMPLICATION Procedure Note Provider, Historical [facility] - 05/15/2025 Report: Transthoracic Echocardiogram Patient Name: STONE POE EAPatient ID: [id number] : [id number] Date: 03/21/2023 11:54:41 AM Gender: MAccession #: [id number] Tech: TWLocation: [facility] BSA: 2.33Weight(Kg): 105.7 Heart Rate: 58Quality: Good PROCEDURES: Echocardiographic Report: Transthoracic echocardiogram with complete 2D, M-Mode, and Doppler examination. INDICATIONS: Mitral Regurgitation. Measurements: 2D/MM Value Range IVSd 2D 1.2 cm LVIDd 2D 5.4 cm LVIDs 2D 3.6 cm LVPWd 2D 1.0 cm EDV Mod 4C 129.0 ml EDV Mod BP 118.0 ml ESV Teich 2D 54.4 ml ESV Mod 4C 39.2 ml ESV Mod BP 42.2 ml EF Teich 2D 63.0 percent EF Mod 4C 69.6 percent ACS MM 2.2 cm AoR Diam MM 3.7 cm LA Dimension MM 5.1 cm LA Volume 2C 57.3 ml LA Volume 4C 63.2 ml RA Minor 3.0 cm LVOT Diam 2.0 cm MV Decel Time 338.00 msec 2D/MM Value Range Doppler Value Range LIEN Vmax 2.6 cm2 LIEN VTI 2.5 cm2 AV Mean Tristan 1.0 m/s AV Mean PG 4.0 mmHg AV Peak Tristan 1.4 m/s AV Peak PG 8.0 mmHg AV VTI 33.3 cm LVOT Peak Tristan 1.1 m/s LVOT VTI 26.8 cm IVRT 151.0 msec MV E Peak Tristan 0.6 m/s MV A Peak Tristan 0.9 m/s MV E/A 0.6 ratio MV PHT 99.0 msec MVA PHT 2.2 cm2 MR Peak Tristan 5.1 m/s MR Peak PG 118.0 mmHg TR Peak Tristan 1.5 m/s TR Peak PG 9.0 mmHg PV Peak Tristan 0.9 m/s PV Peak PG 3.0 mmHg Pulm Aranda Tristan 0.5 m/s Pulm S/D Ratio 0.8 percent Pulm Sys Tristan 0.4 m/s Pvein A Dur 143.0 sec Pvein Atrial Rev Vel0.4 m/s Doppler Value Range - FINDINGS: Left Ventricle: Normal left ventricular cavity size. Normal left ventricular wall thickness. Ejection fraction is visually estimated at 60-65 %. Right Ventricle: Normal right ventricular size. Left Atrium: The left atrium is normal in size. Right Atrium: The right atrium is normal in size. Atrial Septum: Normal atrial septum. Mitral Valve: Moderate mitral valve regurgitation. Aortic Valve: Normal appearance and function of the aortic valve. Tricuspid Valve: Estimated peak RVSP is 12 mmHg. There is trivial tricuspidregurgitation. Pulmonic Valve: Normal pulmonic valve appearance and function. Pericardium: Normal pericardium with no significant pericardial effusion. Aorta: Normal aortic root. IVC: Normal size and normal respiratory collapse consistent with normal right atrial pressure (<5 mmHg). Pulmonary Artery: Normal pulmonary artery size. Impression: CONCLUSIONS: Ejection fraction is visually estimated at 60-65 %. Moderate mitral valve regurgitation. Electronically Signed By: Wood Brasher M.D. 2023-03-21 13:39:05 CDT Primary Interpreting Staff: Verified by: NO COMPLICATION us Bryant Mendez MD CV ECHO PROCEDURES Final Resul t * Hepatitis C antibody (10/12/2021 3:01 PM STEP FINISHER) HEP C VIRUS AB (HISTORICAL) 0.1 0.0 - 0.9 s/co ratio [facility] HISTOR[facility] RESULTING [facility]Y Comment: Collection Date_Time: Reported Date_Time: Negative: < 0.8 Indeterminate: 0.8 - 0.9 Positive: > 0.9 . The CDC recommends that a positive HCV antibody result be followed up with a HCV Nucleic Acid Amplification test ([id number]). Performed at: DA - [facility], [place], [place] [id number] Manager Payment: MARJORIE Hebert MD, Phone: [phone] 10/12/2021 3:01 PM STEP FINISHER 10/12/2021 3:01 PM STEP FINISHER Narrative [facility] HISTORICAL RESULTING AG[facility] - 10/22/2021 8:34 AM STEP FINISHER Chart evaluation by healthcare professional Marissa SAN LAB BLOOD ORDERABLES Final Result [facility]OR[facility] RESULT[facility] from Last 3 Months or Most Recently Relevant to Health Maintenance Insurance [address] [place] [address] BCBS IN STATE BCBS IN STATE Care Teams Second Worker Relationship Specialty Start Date End Date Eladia Angeles DO [facility] [place] [phone] (Work) PCP - General 02/26/24 Glen Alfaro DDS [address] [place] [phone] PCP - Dentistry 06/29/22
--- OUTSIDE RECORDS SUMMARY | 2025-07-02 16:42 | XMS_ITS | Clinical Summary ---
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
--- OUTSIDE RECORDS SUMMARY | 2025-07-02 16:45 | XMS_ITS | Clinical Summary ---
Author Organization [facility] Address [address] [facility] [address] [place] [address] Phone Care Team Providers Care Pensionholder Information Clerk Name Role Phone Pcp, Unknown Primary Care Provider Unavailabl e Encounters Date Type Department Care Team Description 06/25/2025 7:44 AM EDT - 06/25/2025 11:59 PM EDT Hospital Encounter [facility] [address] [place] [address] Mitch Dee MD Discharge Disposition: Home or Self Care from Last 3 Months Social History Tobacco [...] Upcoming Encounters Date Type Department Care Team ([facility] st Contact Info) Description 09/24/2025 1:00 PM EST Office Visit [facility] Medicine [address] [place] [address] Merle Garces MD [address] [facility], [address] [place] [address] [email or web address] Maintenance Due Date Last Done Comments Adult Td,Tdap Booster 1950 LIPID PANEL 1949 DEPRESSION SCREENING 1961 SMOKING Hx and SMOKELESS TOB ACCO SCREENING 1962 HEPATITIS C SCREENING 1967 PNEUMOCOCCAL VACCINES (50+ y ears) (1 of 1 - PCV) 1999 ZOSTER VACCINES (1 of 2) 1999 RSV VACCINE (1 - 1-dose 75+ series) 2024 INFLUENZA VACCINE (#1) 2025 COVID-19 VACCINE ( - 2024-2 6 season) 2025 HEPATITIS A [...] this topic Medical Devices Not on file Procedures Procedure Name Priority Date/Time Associated Diagnosis Comments CBC AND DIFFERENTIAL Routine 06/27/2025 5:43 AM EDT Hypertension, unspecified type Diabetes mellitus without complication COMPREHENSIVE METABOLIC PANEL (CMP) Routine 06/27/2025 5:43 AM EDT Hypertension, unspecified type Diabetes mellitus without complication from Last 3 Months Results * (ABNORMAL) Comprehensive metabolic panel (06/27/2025 5:43 AM EDT) SODIUM 142 133 - 146 mmol/L [facility] POTASSIUM 4.3 3.3 - 5.1 mmol/L [facility] CHLORIDE 104 96 - 108 mmol/L [facility] CO2 29 21 - 35 mmol/L [facility] BUN 15 6 - 19 mg/dL [facility] CREATININE 1.20 0.5 - 1.5 mg/dL [facility] GLUCOSE 77 70 - 99 mg/dL [facility] ALBUMIN 4.2 3.9 - 4.8 g/dL [facility] TOTAL PROTEIN 6.3(L) 6.5 - 8.0 g/dL [facility] CALCIUM 10.1 8.4 - 10.3 mg/dL [facility] ALKALINE PHOSPHATASE 44 39 - 117 U/L [facility] TOTAL BILIRUBIN 1.7(H) 0.0 - 1.2 mg/dL [facility] AST 29 0 - 37 U/L [facility] ALT 15 0 - 40 U/L [facility] GLOBULIN 2.1 1 - 4.8 g/dL [facility] EGFR 63 >59 mL/min/1.7 3m2 [facility] Comment:Estimated glomerular filtration rate calculated using the CKD-EPI refit equation. ANION GAP 13 10 - 20 mmol/L [facility] Blood 06/27/2025 5:43 AM EDT 06/27/2025 8:33 AM EDT us Mitch Dee MD LAB BLOOD BKR ORDERABLES Final R esult Performing Organization Address City/State/[facility] Co de Phone Number [address] [address] * (ABNORMAL) CBC and differential (06/27/2025 5:43 AM EDT) WBC 8.08 4.00 - 11.00 K/uL [facility] RBC 4.92 4.50 - 5.90 M/uL [facility] HGB 13.2(L) 13.5 - 17.5 g/dL [facility] HCT 41.1 41.0 - 53.0 % [facility] PLT 242 150 - 450 K/uL [facility] MCV 83.5 80.0 - 100.0 fL [facility] MCH 26.8(L) 27.0 - 31.0 pg [facility] MCHC 32.1 32.0 - 36.0 g/dL [facility] RDW 19.2(H) 11.5 - 14.5 % [facility] MPV 11.8 8.4 - 12.0 fL [facility] NRBC 0.00 0.00 /100 WBCs [facility] ABSOLUTE NRBC 0.00 0.00 K/uL [facility] DIFF METHOD Auto [facility] NEUTS 53.4 48.0 - 76.0 % [facility] LYMPHS 28.8 18.0 - 41.0 % [facility] MONOS 14.9(H) 4.0 - 11.0 % [facility] EOS 1.6 0.0 - 5.0 % [facility] BASOS 1.1 0.0 - 1.5 % [facility] Granulocytes, immature (%) 0.2 0.0 - 0.9 % [facility] ABSOLUTE NEUTS 4.31 1.92 - 7.60 K/uL [facility] ABSOLUTE LYMPHS 2.33 0.72 - 4.10 K/uL [facility] ABSOLUTE MONOS 1.20(H) 0.16 - 1.10 K/uL [facility] ABSOLUTE EOS 0.13 0.00 - 0.50 K/uL [facility] ABSOLUTE BASOS 0.09 0.00 - 0.15 K/uL [facility] Granulocytes, immature 0.02 0.00 - 0.09 K/uL [facility] Blood 06/27/2025 5:43 AM EDT 06/27/2025 8:33 AM EDT us Mitch Dee MD LAB BLOOD BKR ORDERABLES Final R esult Performing Organization Address City/State/[facility] Co de Phone Number [facility] [address] [place] [address] from Last 3 Months Insurance [facility] FEDERAL [place]IC[place] [address] [place] [address] MEDICARE A [facility] [place] [address] [place] [address] MEDICARE A [facility] MEDICARE A [facility] MEDICARE A Care Teams Pensionholder Information Clerk Relationship Specialty Start Date End Date Pcp, Unknown PCP - General 04/29/25 Additional Source Comments The information contained in this document represents components of the legal health record. It is not the complete legal health record.[facility]
== END 2025-07-02 14:52 | disposition home or self-care (01) ==
LOC: HO.HMCH 13:48
PROVIDERS: PCP Internal Medicine; Visit Provider Internal Medicine
DX: I12.9 Hypertensive chronic kidney disease with stage 1 through stage 4 chronic kidney disease, or unspecified chronic kidney disease (principal); I50.21 Acute systolic (congestive) heart failure; I48.0 Paroxysmal atrial fibrillation; N18.31 Chronic kidney disease, stage 3a; E11.22 Type 2 diabetes mellitus with diabetic chronic kidney disease; D49.6 Neoplasm of unspecified behavior of brain; E13.9 Other specified diabetes mellitus without complications; J90 Pleural effusion, not elsewhere classified; E78.5 Hyperlipidemia, unspecified; R18.8 Other ascites; R53.1 Weakness; I25.10 Atherosclerotic heart disease of native coronary artery without angina pectoris

== ENCOUNTER → 2025-07-02 13:47 | Outpatient (BNVA) | payer BC, SELFPAY | PROVIDERS: PCP Internal Medicine; Visit Provider Internal Medicine | DX: E11.22 Type 2 diabetes mellitus with diabetic chronic kidney disease (principal); I13.0 Hypertensive heart and chronic kidney disease with heart failure and stage 1 through stage 4 chronic kidney disease, or unspecified chronic kidney disease; I50.21 Acute systolic (congestive) heart failure; N18.31 Chronic kidney disease, stage 3a; J44.89 Other specified chronic obstructive pulmonary disease; G47.33 Obstructive sleep apnea (adult) (pediatric); J90 Pleural effusion, not elsewhere classified; I48.0 Paroxysmal atrial fibrillation; E78.5 Hyperlipidemia, unspecified; R18.8 Other ascites; R53.1 Weakness; I25.84 Coronary atherosclerosis due to calcified coronary lesion; K59.00 Constipation, unspecified; R51.9 Headache, unspecified; G89.29 Other chronic pain; D49.6 Neoplasm of unspecified behavior of brain; Z79.84 Long term (current) use of oral hypoglycemic drugs; Z99.89 Dependence on other enabling machines and devices | CPT/HCPCS: 83036 ==

== ENCOUNTER 2025-08-25 09:58 | Inpatient (IN) | payer MEDICARE, BC, SELFPAY ==
--- OUTSIDE RECORDS SUMMARY | 2024-09-03 08:20 | XMS_ITS ---
Author Organization [facility] Address [address] [facility] [address] [facility] [id number] [place] [id number] Care Team Providers Care Document Specialist Name Role Phone CONSTANCEKASSIDY Araujo Unavailable [phone] Marissa Merritt PA-C Unavaila ble REASON FOR VISIT 6 month follow up Dx: Abnomral lung field, TEA w/ DL (pt to bring in SD card), CT Encounters Encounter Location Date Provider Diagnosis [facility] [address] [facility] [address] [facility] [address], [place] [id number] 09/03/2024 ROB NGUYEN Plan Of Treatment No Information Progress Notes * IZABELA POE EDOB: [birth year] (75 yo M)Acc No.[id number]:09/03/2024 Progress Notes Patient: Devon RUDOLPH IZABELA Morrow Provider: Nadine Nguyen MD :1950 A ge:74 Y S ex:Male Date:09/03/2024 Address:[address] [place] [address], [address]-[address] Subjective: * Chief Complaints: * 1 . 6 month follow up Dx: Abnomral lung field, TEA w/ DL (pt to bring in SD card), CT. * Medical History: Objective: * Vitals: Assessment: Plan: * Treatment: * * Electronic signature of WOO NGUYEN MD on 08/25/2025 at 12:28 PM SCIENTIFIC DIVER Sign off status: Pending * Provider: Nadine Nguyen MD Date: 0 09/03/2024 Generated for Diego nixon/[place] on: 1 12:28 PM SCIENTIFIC DIVER
[2025-08-25] VITALS (7 sets, daily range): BP systolic 70–126; BP diastolic 41–56; PULSE 54–73; RESP 12–20; TEMP 36.4–36.7; O2SAT 93–98; BMI 25.2
--- NOTE | ~2025-08-25 | CT_ITS ---
EXAMINATION: CT CERVICAL SPINE WITHOUT CONTRAST CLINICAL INFORMATION: Fall, injury, neck pain. COMPARISON: None available. TECHNIQUE: Spiral CT imaging of the cervical spine performed in axial plane without contrast. Multiplanar reformatted images were constructed from the axial data set. This CT examination was performed using dose optimization techniques as appropriate, variously including the following: *Automated exposure control *Adjustment of mA and/or kV according to patient size (this includes techniques or standardized protocols for targeted exams where dose is matched to indication/reason for exam; i.e. extremities or head) *Use of iterative reconstruction technique FINDINGS: CORONAL ALIGNMENT: -Normal. SAGITTAL ALIGNMENT: -Normal. No traumatic subluxation. C1-C2 AND CRANIOCERVICAL JUNCTION: -Intact and aligned. VERTEBRAL BODIES AND FACETS: -No fracture, compression deformity, or suspicious bone lesion. No traumatic malalignment. -Facets are normally aligned. There are mild multilevel degenerative facet changes most notable on the left at C3-4. DISCS: -Mild disc degeneration throughout. Discs otherwise normal. CENTRAL CANAL: -No evidence of high-grade central canal narrowing or large disc herniation allowing for modality limitations. PREVERTEBRAL AND PARAVERTEBRAL SOFT TISSUES: -No prevertebral or paravertebral soft tissue edema or abnormal fluid collection. -Moderate left greater than right carotid bulb calcifications. -Normal thyroid gland. LUNG APICES: -Clear bilaterally. No pneumothorax. CT/CT cervical spine wo IV con IMPRESSION: 1. No CT evidence of acute cervical spine fracture or injury. Electronically signed by: Thien Rodney MD 08/25/2025 11:[address] [facility]
--- NOTE | ~2025-08-25 | CT_ITS ---
EXAMINATION: CT HEAD WITHOUT CONTRAST CLINICAL INFORMATION: History of prepontine meningioma, new leukocytosis,? Leukemoid reaction. COMPARISON: None available. TECHNIQUE: Contiguous axial imaging was performed from the skull base to vertex without intravenous administration of contrast. This CT examination was performed using dose optimization techniques as appropriate, variously including the following: *Automated exposure control *Adjustment of mA and/or kV according to patient size (this includes techniques or standardized protocols for targeted exams where dose is matched to indication/reason for exam; i.e. extremities or head) *Use of iterative reconstruction technique FINDINGS: There is no evidence of intracranial hemorrhage or extra-axial fluid collection. There is redemonstration of a right prepontine extra-axial dural-based mass, measuring approximately 0.9 x 1.8 x 2.0 cm (AP, TRV, CC), consistent with the known meningioma. This generates minimal mass effect upon the right lauryn with mild flattening. No additional mass effect is evident. No underlying edema is present. No CT evidence of acute territorial infarct. Ventricles, sulci, and cisterns are normal in size and configuration for patient age. No hydrocephalus. No midline shift. Negative hyperdense MCA sign. Negative insular ribbon sign. Patchy periventricular and deep white matter hypoattenuation is consistent with moderate small vessel ischemic changes. Normal pituitary. Mild atheromatous calcification of the bilateral carotid siphons and V4 segments vertebral arteries bilaterally. Globes and orbital contents image normally. No extracranial soft tissue abnormalities. Paranasal sinuses demonstrate small air-fluid level in the right maxillary sinus, with opacification of the right ethmoid sinuses and right frontal recess. Findings could represent acute sinusitis in the appropriate clinical setting. Mastoids and tympanic cavities are normally aerated. No suspicious bony abnormalities. There are no acute fractures evident. There are maxillary dental implants. There are mild degenerative changes in the bilateral TM joints. CT/CT head/brain wo IV con IMPRESSION: 1. There is a stable right prepontine extra-axial mass measuring approximately 0.9 x 1.8 x 2.0 cm, unchanged and consistent with a known meningioma. There is mild flattening and mass effect upon the right mid lauryn without underlying edema, a stable finding. No new mass effect or edema. 2. There is otherwise no evidence of intracranial hemorrhage or acute territorial infarct. 3. There are moderate white matter changes of small vessel ischemia, also stable. 4. Air-fluid level in the right maxillary sinus with patchy opacification of the right ethmoid sinuses and right frontal recess. Findings could represent acute sinusitis in the appropriate clinical setting. Electronically signed by: Thien Rodney MD 08/26/2025 11:13 AM [facility]
--- NOTE | ~2025-08-25 | XR_ITS ---
EXAMINATION: XR CHEST 1 VIEW HISTORY: Weakness COMPARISON: Comparison is made with the prior examination dated 06/23/2025. FINDINGS: Two AP portable views of the chest performed at 10:44 AM are submitted. There is a density in the right upper lobe which likely represents prominence of the 2nd anterior rib and as this is only seen on one view. The lungs are otherwise clear. There is no pleural effusion, pneumothorax, or pulmonary vascular congestion. The heart is normal in size. There is degenerative disc disease of the spine. XR/XR chest 1V IMPRESSION: No definite acute abnormality is seen. A nodular density in the right upper lung zone on one view likely represents a confluence of osseous shadows. Follow-up PA and lateral views are recommended when the patient is able. Electronically signed by: Teo Dominguez MD 08/25/2025 11:03 AM [facility]
--- NOTE | ~2025-08-25 | CT_ITS ---
EXAMINATION: CT ABDOMEN AND PELVIS WITHOUT CONTRAST CLINICAL INFORMATION: Malleolus, weakness, high white blood cell count. Fall. COMPARISON: 05/15/2025. Correlation made with MRI abdomen 05/16/2025. TECHNIQUE: Multidetector volumetric imaging was performed from the superior aspect of the liver through the pubic symphysis. Sagittal and coronal reformatted images were obtained on the technologist's workstation. This CT examination was performed using dose optimization techniques as appropriate, variously including the following: *Automated exposure control *Adjustment of mA and/or kV according to patient size (this includes techniques or standardized protocols for targeted exams where dose is matched to indication/reason for exam; i.e. extremities or head) *Use of iterative reconstruction technique FINDINGS: LUNG BASES: Deferred to the dedicated chest CT performed concurrently. LIVER, GALLBLADDER, AND BILIARY TREE: The unenhanced liver is mildly increased in size, however normal in attenuation. No focal hepatic lesion or biliary ductal dilatation is present. The gallbladder demonstrates numerous intraluminal calcified gallstones, the largest of which measures approximately 1.9 cm in diameter. There are no signs of gallbladder inflammation present. PANCREAS: Unenhanced pancreas is unremarkable. SPLEEN: Unenhanced spleen is normal. ADRENAL GLANDS: Unremarkable. KIDNEYS AND URETERS: There is mild bilateral perirenal stranding, nonspecific. There is no hydronephrosis or hydroureter of either side. No definite renal mass or calculus allowing for noncontrast technique. BLADDER: Underdistended. Minimal wall thickening diffusely, nonspecific. GASTROINTESTINAL TRACT: Small to moderate-sized type I hiatus hernia. Stomach otherwise normal. Duodenum demonstrates a second segment duodenal diverticulum. Small bowel is normal in caliber and course. There are no CT features of appendicitis. Appendix is normal. The colon is normal in course and caliber, without wall thickening or inflammation. There is mild to moderate constipation present. Redundant sigmoid noted. No rectal abnormality. ABDOMINAL WALL: Tiny fat-containing right inguinal hernia. LYMPH NODES: No abnormal lymphadenopathy present. VASCULAR: Heavy calcification of the aorta and iliac arteries. There is no aneurysm. PELVIC VISCERA: The prostate is grossly normal. Seminal vesicles appear normal. OSSEOUS STRUCTURES: There is no suspicious lytic or blastic bone lesion evident. Severe degenerative disc changes L5-S1 with sclerosis of the endplates and disc vacuum phenomenon. No acute fractures present. CT/CT abdomen pelvis wo IV con IMPRESSION: 1. Study limited by lack of IV contrast. Within these confines, no acute findings in the abdomen or pelvis. 2. Cholelithiasis without CT evidence of acute cholecystitis. 3. Perirenal stranding bilaterally, nonspecific. No hydronephrosis or hydroureter. 4. There is mild wall thickening of the urinary bladder, however it is underdistended. UTI not excluded. 5. There is mild constipation present. 6. Ancillary findings as discussed in the body of the report. Electronically signed by: Thien Rodney MD 08/25/2025 01:38 PM [facility]
--- NOTE | ~2025-08-25 | XR_ITS ---
EXAMINATION: XR KNEE, LEFT CLINICAL INFORMATION: Fall COMPARISON: None available. TECHNIQUE: Four views of the left knee. FINDINGS: No fracture, dislocation, or suspicious bone lesion. Normal alignment. Minimal joint space narrowing of the medial lateral compartments consistent with minimal osteoarthritis. There is mild spurring of the medial tibial spine. Patella appears normally aligned and intact. No definite joint effusion. Soft tissues normal aside from vascular calcifications which are diffuse. XR/XR knee LT 4V IMPRESSION: 1. No acute bony abnormalities. No joint effusion. 2. Very mild tricompartmental osteoarthritis. 3. Vascular calcifications throughout the soft tissues. Electronically signed by: Thien Rodney MD 08/25/2025 11:56 AM [facility]
--- NOTE | ~2025-08-25 | CT_ITS ---
EXAMINATION: CT CHEST WITHOUT CONTRAST CLINICAL INFORMATION: Malaise, weakness, elevated white count. 75-year-old male. COMPARISON: 06/20/2025 CT chest. Chest x-ray 8 08/25/2025. TECHNIQUE: Multidetector volumetric CT imaging of the chest was done. Axial MIP volume rendering provided. Sagittal and coronal reformatted images were obtained. This CT examination was performed using dose optimization techniques as appropriate, variously including the following: *Automated exposure control *Adjustment of mA and/or kV according to patient size (this includes techniques or standardized protocols for targeted exams where dose is matched to indication/reason for exam; i.e. extremities or head) *Use of iterative reconstruction technique FINDINGS: LUNGS: There are scattered calcified granulomata present. There is discoid atelectasis and/or scarring in the posterior segment of the right upper lobe, unchanged from 06/20/2025. Minimal subpleural scarring or atelectasis is seen in the lower lobes bilaterally. No suspicious pulmonary nodules seen. Lungs otherwise clear and free of consolidation or interstitial abnormality. Minimal small airway thickening is present, similar to the prior. There is no pneumothorax or pleural effusion. MEDIASTINUM: Normal thyroid. No abnormal lymphadenopathy or mass within the mediastinum. Ascending aorta is ectatic at 4.1 cm. There is no true aneurysm. There is mild to moderate atheromatous calcification of the aorta. The pulmonary trunk is normal in size. The heart size is normal. There is no pericardial effusion. There is a small type I hiatus hernia present. CORONARY ARTERY CALCIFICATION: Heavy. AXILLA/CHEST WALL: No lymphadenopathy or mass. UPPER ABDOMEN: Refer to the dedicated CT abdomen pelvis performed concurrently. OSSEOUS STRUCTURES: No suspicious lytic or blastic bone lesions are evident. No definitive acute fractures are evident. Probable old right anterior rib fractures, subtle. There are mild degenerative changes in the spine. CT/CT chest wo IV con IMPRESSION: 1. No acute thoracic abnormalities. The lungs are clear aside from stable scarring in the posterior segment of the right upper lobe. 2. Heavy coronary calcification present. 3. Ectatic ascending aorta at 4.1 cm diameter. 4. Resolution of previously seen right pleural effusion. 5. There is evidence of prior granulomatous disease. Electronically signed by: Thien Rodney MD 08/25/2025 01:23 PM [facility]
--- NOTE | ~2025-08-25 | XR_ITS ---
EXAMINATION: XR ANKLE, LEFT CLINICAL INFORMATION: Fall COMPARISON: None available. TECHNIQUE: AP, lateral, and mortise views of the left ankle. FINDINGS: Nondisplaced fracture of the tip of the lateral malleolus. Tiny flecks of bone cutting the tip of the medial malleolus, suspicious for tiny avulsion fractures. Posterior malleolus appears intact. Ankle mortise appears intact. Talar dome appears intact. Subtalar joints and calcaneus appear intact and aligned. Diffuse soft tissue swelling. Ankle joint effusion present. XR/XR ankle LT min 3V IMPRESSION: 1. Minimally displaced avulsion fracture lateral malleolus. 2. Suspect tiny avulsion fractures medial malleolus. 3. Soft tissue swelling and joint effusion. Electronically signed by: Thien Rodney MD 08/25/2025 11:54 AM [facility]
--- NOTE | ~2025-08-25 | CT_ITS ---
EXAMINATION: CT HEAD WITHOUT IV CONTRAST HISTORY: Fall head strike on Eliquis. TECHNIQUE: Unenhanced helical CT of the head was performed per standard departmental protocol. Coronal and sagittal reformats of the head were also evaluated. One or more of the following techniques was used for dose reduction: Automated exposure control, adjustment of the mA and/or kV according to patient size, use of iterative reconstruction technique. DLP: 651 mGy-cm COMPARISON: Comparison is made with the prior examination dated 06/19/2025. Correlation is also made with an MRI of the brain dated 06/20/2025. FINDINGS: BRAIN: There is mild prominence of the ventricular system and cortical sulci, consistent with atrophy. Periventricular and subcortical white matter hypodensities are noted which are nonspecific, but often seen in the setting of small vessel ischemic disease. Again seen is a 1.6 x 0.9 cm soft tissue mass in the right prepontine cistern, compatible with a meningioma. There is no midline shift. No intra- or extra-axial fluid collections are identified. SINUSES: The visualized paranasal sinuses are clear. The mastoid air cells and middle ear cavities are well pneumatized. ORBITS: The visualized orbits are unremarkable. BONES/SOFT TISSUES: The extracranial soft tissues are unremarkable. The calvarium is intact. No suspicious lytic or sclerotic lesions. CT/CT head/brain wo IV con IMPRESSION: No acute intracranial abnormality. Electronically signed by: Teo Dominguez MD 08/25/2025 11:07 AM [facility]
--- NOTE | 2025-08-25 10:24 | ECG_ITS ---
Test Reason : DIZZINESS Blood Pressure : */* mmHG Vent. Rate : 61 BPM Atrial Rate : 61 BPM P-R Int : 196 ms QRS Dur : 164 ms QT Int : 512 ms P-R-T Axes : 18 112 49 degrees QTcB Int : 515 ms Normal sinus rhythm Right bundle branch block Left posterior fascicular block Bifascicular block Inferior infarct , age undetermined Abnormal ECG When compared with ECG of 19-Jun-2025 17:56, [place] interval has decreased Inferior infarct is now Present T wave inversion no longer evident in Inferior leads Referred By: Luda Garcia Electronically Signed By: YANIQUE MOHR
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
--- NOTE | 2025-08-25 10:55 | PC.NURSE ---
Patient presents to ED via EMS for lightheadedness and dizziness. Patient states he had syncopal episode Monday where he felt dizzy while walking to kitchen and fell and pased out. Patient unsyre how long he was down for and if he hit his head. Today he was still feeling dizzy and felt faint, however did not pass out. Patient BP with EMS originally 70/50, received fluids with EMS and returned to 93/50. Here BP 101/49, hooked up to monitor. AOx4, patient com of mild headache, denies any CP. Patient is on eliquis due to recent ablation. IV in right FA.
[2025-08-25 11:31] LABS: Appearance Urine Clear; Glucose Urine UA >=1000 mg/dL (Negative); PH 5.5 (5.0-9.0); Specific Gravity - Urine 1.020 (1.005-1.025); UMIC TRIGGER UACC YES
[2025-08-25 11:33] LABS: Hematocrit 41.2 % (42.0-52.0); Hemoglobin 13.5 g/dl (14.0-18.0); Imm Gran Abs Auto 0.15 X10*3/uL (0.00-0.03); Imm Gran Pct Auto 0.7 % (0.0-0.4); Lymphocytes Absolute Auto 1.0 X10*3/uL (1.2-4.9); MANUAL DIFF FLAG SCAN; Mean Corpuscular HGB Conc 32.8 g/dl (31.0-36.0); Mean Corpuscular Hemoglobin 27.6 pg (27.0-33.0); Mean Corpuscular Volume 84.3 fL (80.0-98.0); NRBC Abs Auto 0.000 X10*3/uL (0.0-0.012); NRBC Pct Auto 0.0 /100WBC (0.0-0.2); Platelet Count 245 X10*3/uL (160-400); Red Blood Count 4.89 X10*6/uL (4.60-5.80); SCAN SMEAR FLAG 1; White Blood Count 20.9 X10*3/uL (4.8-10.8)
[2025-08-25 11:45] LABS: Alanine Aminotransferase 21 U/L (0-40); Albumin Level 4.1 g/dL (3.5-5.0); Alkaline Phosphatase 47 U/L (39-117); Anion Gap 14 (12-20); Aspartate Amino Transferase 29 U/L (5-37); Blood Urea Nitrogen 53 mg/dL (9-16); Calcium 10.2 mg/dL (8.4-10.2); Carbon Dioxide 25 mmol/L (22-29); Chloride 102 mmol/L (96-108); Creatinine Clr Calc Pharmacy 22.2; Estimated Glomerular Filt Rate 19; Lipase 46 U/L (8-78); Magnesium 2.2 mg/dL (1.6-2.6); Potassium 5.6 mmol/L (3.3-5.1); Sodium 135 mmol/L (135-145); Total Protein 6.6 g/dL (6.5-8.0)
[2025-08-25 11:50] LABS: Other Crystals Urine Present
[2025-08-25 11:51] LABS: Troponin-I High Sensitivity 10.9 ng/L (<3.5-35.0)
[2025-08-25 12:10] LABS: Resp Syncy Virus RNA Qual PCR NEGATIVE (Negative); SARS COV2 PCR INHOUSE NEGATIVE (Negative)
[2025-08-25] MEDS: Lactated Ringers 1,000 ML 999 ML IV (12:21)
[2025-08-25 12:35] LABS: Procalcitonin 0.26 ng/mL
--- NOTE | 2025-08-25 12:41 | PC.NURSE ---
pt is alert and oriented, skin is slightly pale in appearance, respirations even and unlabored, ls clear, pt reports feeling lightheaded and dizzy earlier but improved not dizzy any more, states having a headache and sore throat denies cough but also is reporting having a fall few days ago and left knee pain, no deformities noticed and moving all extremities
--- OUTSIDE RECORDS SUMMARY | 2025-08-25 13:28 | XMS_ITS | Clinical Summary ---
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
--- OUTSIDE RECORDS SUMMARY | 2025-08-25 13:28 | XMS_ITS | Clinical Summary ---
Author Organization [facility] Address [address] [place] [address] Phone Care Team Providers Care Selling Specialist Name Role Phone DominicJaronGlen DDS Unavailable Katie Tsang DO Primary Care Provider [phone] Basilia Blackwell RN Unavailable Unavailable Medications * This document contains information [...] MOUTH DAILY 90 capsule 2 03/25/20 25 Active gabapentin (Neurontin) 400 mg capsule TAKE ONE (1) CAPSULE BY MOUTH TWICE A DAY 60 capsule 2 03/25/20 25 Active semaglutide (Ozempic) 1 mg/dose (4 mg/3 mL) pen-injector INJECT 1 MG UNDER THE SKIN ONCE WEEKLY 3 mL 2 03/13/20 25 Active pantoprazole (Protonix) 40 mg EC tablet TAKE ONE (1) TABLET BY MOUTH TWICE A DAY (30 MINUTES PRIOR TO A MEAL) 60 tablet 2 03/25/20 25 Active atorvastatin (Lipitor) 40 mg tablet TAKE ONE (1) TABLET BY MOUTH EVERY DAY FOR CHOLESTEROL 30 tablet 2 04/04/20 25 Active cetirizine (ZyrTEC) 10 mg tablet TAKE ONE (1) TABLET BY MOUTH EVERY DAY IF NEEDED FOR ALLERGY SYMPTOMS 30 tablet 2 03/13/20 25 Active metoprolol tartrate (Lopressor) 25 mg tablet TAKE THREE (3) TABLETS BY MOUTH TWICE A DAY FOR BLOOD PRESSURE 180 tablet 2 04/04/20 25 Active buPROPion SR (Wellbutrin SR) 150 mg 12 hr tablet TAKE ONE (1) TABLET BY MOUTH AT BEDTIME 30 tablet 2 03/13/20 25 Active empagliflozin (Jardiance) 25 mg TAKE ONE (1) TABLET BY MOUTH EVERY MORNING 30 tablet 2 03/13/20 25 Active apixaban (Eliquis) 5 mg tablet TAKE ONE (1) TABLET BY MOUTH TWICE A DAY 60 tablet 2 04/04/20 25 Active metFORMIN XR (Glucophage-XR) 500 mg 24 hr tablet TAKE TWO (2) TABLETS BY MOUTH EVERY EVENING 60 tablet 2 03/13/20 25 Active hydrALAZINE 10 mg tablet TAKE ONE (1) TABLET BY MOUTH THREE TIMES A DAY NEEDED FOR SBP> 170 MMHG OR DBP > 95 MMHG 90 tablet 2 03/13/20 25 Active fenofibrate micronized (Antara) 130 mg capsule TAKE ONE (1) CAPSULE BY MOUTH EVERY DAY 30 capsule 2 03/25/20 25 Active albuterol HFA 90 mcg/act inhaler Inhale 2 (two) puffs every 4 hours if needed. 8.5 gram 3 07/31/2025 2:09 PM [facility] 07/31/20 25 Active aspirin 81 mg EC tablet Take 1 (one) tablet by mouth daily 30 tablet 11 07/31/2025 2:09 PM [facility] [facility] 07/31/20 25 Active furosemide (Lasix) 20 mg tablet Take 1 (one) tablet by mouth daily. 30 tablet 3 07/31/2025 2:09 PM [employer] 07/31/20 25 Active empagliflozin (Jardiance) 25 mg Take 1 (one) tablet by mouth daily. 30 tablet 3 07/31/2025 2:09 PM [employer] 07/31/20 25 Active atorvastatin (Lipitor) 40 mg tablet Take 1 (one) tablet by mouth daily. 30 tablet 11 07/31/2025 2:09 PM [employer] 07/31/20 25 Active apixaban (Eliquis) 5 mg tablet Take 1 (one) tablet by mouth twice daily. 60 tablet 11 07/31/20 25 Active apixaban (Eliquis) 5 mg tablet 1 tablet By Mouth 2 times a day 60 tablet 2 08/01/20 25 Active amiodarone (Pacerone) 200 mg tablet 1 tablet By Mouth 2 times a day 60 tablet 08/01/2025 4:14 PM [facility] [employer] [facility] 08/01/20 25 Active omeprazole (PriLOSEC) [address] capsule Take 1 (one) capsule by mouth in the morning. 30 capsule 7 08/01/2025 3:49 PM [employer] 08/01/20 25 Active buPROPion SR (Wellbutrin SR) 150 mg 12 hr tablet Take 1 (one) tablet by mouth at bedtime. 30 tablet 7 08/01/2025 3:49 PM [employer] 08/01/20 25 Active venlafaxine XR (Effexor XR) 75 mg 24 hr capsule Take 3 (three) capsules by mouth Daily. 90 capsule 3 08/01/2025 3:49 PM [employer] 08/01/20 25 Active fenofibrate micronized (Antara) 130 mg capsule Take 1 (one) capsule by mouth Daily. 30 capsule 7 08/01/2025 3:49 PM [employer] 08/01/20 25 Active metFORMIN XR (Glucophage-XR) 500 mg 24 hr tablet Take 2 (two) tablets by mouth Daily. 60 tablet 3 08/01/2025 3:49 PM [employer] 08/01/20 25 Active cetirizine (ZyrTEC) 10 mg tablet Take 1 (one) tablet by mouth Daily. 30 tablet 3 08/01/2025 3:49 PM [facility] [facility] 08/01/20 25 Active famotidine (Pepcid) 20 mg tablet Take 1 (one) tablet by mouth Daily. 30 tablet 7 08/01/2025 3:49 PM [facility] [employer] [facility] 08/01/20 25 Active tamsulosin (Flomax) 0.4 mg 24 hr capsule Take 1 (one) capsule by mouth Daily. 30 capsule 11 08/01/2025 3:49 PM [facility] [facility] 08/01/20 25 Active cholecalciferol (Vitamin D-3) 125 MCG (5000 UT) capsule take two capsules once a week (same day of each week) 10 capsule 11 08/04/2025 11:44 AM [facility] [employer] [facility] 07/28/20 25 Active aspirin 81 mg EC tablet Take one tablet daily 30 tablet 11 08/07/20 25 Active losartan (Cozaar) 50 mg tabletIndication s:Essential (primary) hypertension TAKE ONE (1) TABLET BY MOUTH TWICE A DAY FOR BLOOD PRESSURE 60 tablet 2 08/25/2025 11:15 AM [facility] [facility] 08/25/20 25 026 Active losartan (Cozaar) 50 mg tablet TAKE ONE (1) TABLET BY MOUTH TWICE A DAY FOR BLOOD PRESSURE 60 tablet 2 03/13/20 25 025 Discontin ued(Reord er) losartan (Cozaar) 50 mg tablet Take one-half (1/2) tablet by mouth two times a day. 30 tablet 7 08/01/2025 3:49 PM [facility] 08/01/20 25 025 Discontin ued(Other ) Encounters Date Type Department Care Team Description 08/25/2025 Refill [facility] [address] [place] [address] Katie Tsang DO Essential (primary) hypertension 07/29/2025 Orders Only [facility] [address] [place] [address] Celine Stanford, ic designer gate arrays obstructive pulmonary disease, unspecified COPD type 07/03/2025 Abstract [facility] Primary Care Clinic [address] [place] [address] Basilia Blackwell, MARLON from Last 3 Months Social History Tobacco Use Types Packs/Day Years Used Date Smoking Tobacco: Never Assessed Sex and Gender Information Value Date Recorded Sex Assigned at Not on file Legal Sex Male 12:27 PM CDT Gender Identity Not on file Sexual Orientation Not on file Primary [place] Affiliation [place] Last Filed Vital Signs Vital Sign [...] Health Maintenance Due Date Last Done Comments Diabetes: Diabetes Education 1959 Diabetes: Foot Exam 1959 Diabetes: Nutritional Counseling 1959 Diabetes: Retinopathy Screening 1959 DTaP/Tdap/Td Vaccines (2 - Td or Tdap) 07/11/2019 06/13/2019 Diabetes: Dental Exam 06/29/2023 06/29/2022, 019 RSV Vaccines (1 - 1-dose 75+ series) 2024 Echocardiogram 03/21/2024 03/21/2023, 02/15/2022 Diabetes: Hemoglobin A1C 07/24/2024 024, 12/21/2023, 05/15/2023, Additional history exists Diabetes: Urine Protein Screening 04/23/2025 04/23/2024, 12/21/2023, 10/10/2022 Lipid Panel 04/23/2025 04/23/2024, 11/27, 05/15/2023, Additional history exists TSH Level 04/23/2025 04/23/2024, 11/27, 05/15/2023, Additional history exists COVID-19 Vaccine ( season) 2025 05/28/2022, 06/11/2021, 10/22/2020, Additional history exists Influenza Vaccine (#1) 2025 , 05/28/2022, 08/28/2021, Additional history exists Creatinine Level 04/13/2026 04/13/2025, 03/2025, 04/03/2025, Additional history exists Potassium Level 04/13/2026 04/13/2025, 08/0 03/2025, 04/03/2025, Additional history exists Hepatitis C Screening Completed 10/12/2021 Pneumococcal Vaccine: 65+ Years Completed 10/13/2021, 06/10/2020, 05/31/2020 Zoster Vaccines Completed 10/13/2021, 04/30/2021 HIB Vaccines Aged Out No longer eligi [...] Procedure Name Priority Date/Time Associated Diagnosis Comments COMPREHENSIVE METABOLIC PANEL Routine 04/13/2025 5:50 PM CDT MICROALBUMIN / CREATININE URINE RATIO Routine 04/23/2024 2:31 PM CDT HEMOGLOBIN A1C Routine 04/23/2024 2:31 PM CDT LIPID PANEL W/ CHOL/HDL RATIO Routine 04/23/2024 2:31 PM CDT TSH Routine 04/23/2024 2:31 PM CDT ECHOCARDIOGRAM 2D COMPLETE Routine 03/21/2023 1:40 PM CDT COMPREHENSIVE ORAL EVALUATION - NEW OR ESTABLISHED PATIENT Routine 06/29/2022 6:00 AM CDT HEPATITIS C ANTIBODY Routine 10/12/2021 3:01 PM [employer] from Last 3 Months or Most Recently Relevant to Health Maintenance Results * (ABNORMAL) Comprehensive metabolic panel (04/13/2025 5:50 PM CDT) GLUCOSE (HISTORICAL) 107(H) 74 - 100 mg/dL [...] Re sult [facility] * Lipid Panel with Chol/HDL Ratio (04/23/2024 2:31 PM CDT) CHOLESTEROL (HISTORICAL) 152 <=200 mg/dL [facility] TRIGLYCERIDES (HISTORICAL) 135 <=150 mg/dL [facility] VLDL CHOLESTEROL (HISTORICAL) 27 10 - 31 mg/dL [facility] LDL CHOLESTEROL (HISTORICAL) 79 <=130 mg/dL [facility] Comment: Interpretation Desirable Level: < 100 Borderline High: 130 - 159 High Risk: > 159 HDL CHOLESTEROL (HISTORICAL) 48 >=40 mg/dL [facility] NON-HDL CHOLESTEROL (HISTORICAL) 104 mg/dL [facility] RISK FACTOR (HISTORICAL) 3.2 0.0 - 5.0 calc [facility] 04/23/2024 2:31 PM CDT 04/23/2024 2:31 PM CDT Narrative [facility] - 04/23/2024 3:33 PM CDT Dyslipidemia [employer] LAB BLOOD ORDERABLES Final Resu lt Performing Organization Address [facility] de Phone Number [facility] * (ABNORMAL) Microalbumin / creatinine urine ratio (04/23/2024 2:31 PM CDT) Creatinine, Urine, Quant 76.63 Not Estab. mg/dL [facility] Albumin, Urine Quant 43.084 Not Estab. ug/mL [facility] URINE ALB/CRE RATIO (HISTORICAL) 56(H) 0.0 - 30.0 mg/g [facility] 04/23/2024 2:31 PM CDT 04/23/2024 2:31 PM CDT Narrative [facility] - 04/23/2024 3:18 PM CDT Type 2 diabetes mellitus [employer] LAB URINE ORDERABLES Final Resu lt Performing Organization Address [facility] de Phone Number [facility] * TSH (04/23/2024 2:31 PM CDT) TSH (HISTORICAL) 0.977 0.35 - 4.940 uIU/mL [facility] 04/23/2024 2:31 PM CDT 04/23/2024 2:31 PM CDT Narrative [facility] - 04/23/2024 3:33 PM CDT Type 2 diabetes mellitus [employer] DO LAB BLOOD ORDERABLES Final Resu lt Performing Organization Address [facility] de Phone Number [facility] [...] 4:57 PM CDT Type 2 diabetes mellitus Eladia Angeles DO LAB BLOOD ORDERABLES Final Resu lt [facility] * Echocardiogram 2D complete (03/21/2023 1:40 PM CDT) Anatomical Region Laterality Modality Ultrasound 01/26/2023 10:2 2 AM CDT 03/21/2023 1:40 PM CDT Narrative 03/21/2023 1:40 PM CDT Report: Transthoracic Echocardiogram Patient Name: STONE POE EAPatient ID: [id number] : [id number] Date: 03/21/2023 11:54:41 AM Gender: MAccession #: [id number] Tech: TW[facility] BSA: 2.33Weight(Kg): 105.7 Heart Rate: 58Quality: Good [...] by: NO COMPLICATION Procedure Note Provider, Historical [facility] - 05/15/2025 Report: Transthoracic Echocardiogram Patient Name: STONE POE EAPatient ID: [id number] : [id number] Date: 03/21/2023 11:54:41 AM Gender: MAccession #: [id number] Tech: TWLocation: [facility] BSA: 2.33Weight(Kg): 105.7 Heart Rate: 58Quality: Good [...] * Hepatitis C antibody (10/12/2021 3:01 PM [facility] [facility]) HEP C VIRUS AB (HISTORICAL) 0.1 0.0 - 0.9 s/co ratio [facility] Comment: Collection Date_Time: Reported Date_Time: Negative: < 0.8 Indeterminate: 0.8 - 0.9 Positive: > 0.9 . The CDC recommends that a positive HCV antibody result be followed up with a HCV Nucleic Acid Amplification test (088918). Performed at: [facility] [address], [place], [place] [id number] Coutierier: MARJORIE Hebert MD, Phone: [phone] 10/12/2021 3:01 PM [facility] 10/12/2021 3:01 PM [employer] Narrative [facility] - 10/22/2021 8:34 AM [employer] [facility] Chart evaluation by healthcare professional us Marissa [facility] LAB BLOOD ORDERABLES Final Result [facility] from Last 3 Months or Most Recently Relevant to Health Maintenance Insurance [place] Care Teams Selling Specialist Relationship Specialty Start Date End Date Glen Alfaro DDS [address] [place] [id number] PCP - Dentistry 06/29/22 Katie Tsang DO [address] [place] [address] PCP - General Family Medicine 07/29/25 Basilia Blackwell, RN Registered Nurse 07/29/25
--- OUTSIDE RECORDS SUMMARY | 2025-08-25 13:28 | XMS_ITS | Patient Health Record ---
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 Name Role Phone ROB NOLASCO Unavailable [phone] Marissa Merritt PA-C Unavailable Unavaila ble Allergies Allergen (clinical drug ingredient) Drug/Non Drug Allergy documented on EMR Reaction Allergy Type Onset Date Status erythromycin Erythromycin Unknown Drug Allergy A ctive lisinopril Lisinopril Unknown Drug Allergy Activ e Penicillin Unknown Drug Allergy Active Reason For Referral No Information Medications Medication SIG (Take, Route, Frequency, Duration) Notes Start Date End Date Status Atorvastatin Calcium 20 MG Oral; Duration: 30 Days Acti ve Tadalafil 5 MG Oral; Duration: 30 Days Active buPROPion HCl ER (SR) 150 MG Oral; Duration: 30 Days Acti ve Venlafaxine HCl ER 75 MG Oral; Duration: 30 Days Active Gabapentin 400 MG Oral; Duration: 30 Days Active Jardiance 25 MG Oral; Duration: 30 Days Active Fluticasone Propionate 50 MCG/ACT Nasal; Duration: 30 Days Active Fenofibric Acid 135 MG Oral; Duration: 30 Days Active Metoprolol Succinate ER 100 MG Oral; Duration: 30 Days Acti ve cloNIDine HCl 0.1 MG Oral; Duration: 12 Days Active Ozempic (1 MG/DOSE) 4 MG/3ML Subcutaneous; Duration: 28 Days Active Stiolto Respimat 2.5-2.5 MCG/ACT 2 puffs Inhalation Once a day Not-Taking Pantoprazole Sodium 40 MG Oral; Duration: 30 Days Active Albuterol Sulfate HFA 108 (90 Base) MCG/ACT 2 puff as needed Inhalation every 4 hrs Active Losartan Potassium 25 MG Oral; Duration: 30 Days Active metFORMIN HCl ER 500 MG Oral; Duration: 30 Days Active Social History Tobacco Use: Social History Observation Description Date Details (start date - stop date) Never Smoker NA - NA Tobacco Use/Smoking Question Answer Notes Tobacco use: nonsmoker Problems Problem Type SNOMED Code ICD Code Onset Dates Problem Status W/U Status Risk Notes Problem 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 Problem Obstructive sleep apnea syndrome (disorder) (04775017) Obstructive sleep apnea (adult) (pediatric) (G47.33) Active confirmed Problem Chronic respiratory failure (46685887) Chronic respiratory failure with hypoxia (J96.11) Active confirmed Problem Shortness of breath (984291743) Shortness of breath (R06.02) Active confirmed Problem Lung field abnormal (385306185) Lung field abnormal (R91.8) Active confirmed Problem Obese class I (finding) (693696778448526 ) Obesity (BMI 30.0-34.9) (E66.9) Active confirmed Problem Mild intermittent asthma (691814234) Mild intermittent asthma without complication (J45.20) Active confirmed Problem Fatigue (59071069) Fatigue, unspecified type (R53.83) Active confirmed Vital Signs Heart Rate 87 /min 02/19/2025 Blood pressure diastolic 116 mm Hg 02/19/2025 Oximetry 99 % 02/19/2025 Height-cm 185.42 cm 02/19/2025 Weight-kg 95.53 kg 02/19/2025 Height 73 in 02/19/2025 Blood pressure systolic 155 mm Hg 02/19/2025 Weight 210.6 lbs 02/19/2025 BMI 27.78 kg/m2 02/19/2025 Procedures Procedure Date Ordered Date Performed Result Body Sit e POLYSOMNOGRAPHY W/CPAP 09/06/2024 N/A POLYSOMNOGRAPHY, 4 OR MORE 02/20/2025 N/A POLYSOMNOGRAPHY, 4 OR MORE 04/02/2025 N/A Encounters Encounter Location Date Provider Diagnosis [facility] [address] [address] [place] [address], [place] [id number] 02/19/2025 ROB NOLASCO Obstructive sleep apnea (adult) (pediatric) G47.33 ; Chronic respiratory failure with hypoxia J96.11 ; Lung field abnormal R91.8 ; Sarcoidosis of lung D86.0 ; Fatigue, unspecified type R53.83 ; Shortness of breath R06.02 and Abnormal lung field R91.8 [facility] [address] [place] [address] [place] [address], [place] [id number] 04/18/2025 [facility] [address] [place] [address] [place] [address], [place] [id number] 08/27/2024 [facility] [address] [place] [address] [place] [address], [place] [id number] 09/03/2024 [facility] [address] [place] [address] [place] [address], [place] [id number] 12/18/2024 [facility] [address] [place] [address] [place] [address], [place] [id number] 01/02/2025 [facility] [address] [place] [address] [place] [address], [place] [id number] 04/01/2025 [facility] [address] [place] [address] [place] [address], [place] [id number] 04/02/2025 [facility] [address] [place] [address] [place] [address], [place] [id number] 04/04/2025 [facility] [address] [place] [address] [place] [address], [place] [id number] 07/01/2025 [facility] Assessments Encounter Date Diagnosis (ICD Code) Assessment Notes Treatment Notes Treatment Clinical Notes Section Notes 02/19/2025 Obstructive sleep apnea (adult) (pediatric) (ICD-10 - G47.33) - - Patient is here for follow-up evaluation of sarcoidosis and TEA - Download reviewed shows 100% compliance average use is 7 hours and 58 minutes a night, auto CPAP of 13-18, residual AHI is 14.8. Patient is using and benefiting from therapy. Sleep remedies as a DME. This is actually improved when compared to previous download when AHI was 17.6. His leaks have actually improved which I think is likely helping. However because the events are 14/h we will proceed with BiPAP titration. -Sleep study performed through the sleep clinic April 03, 2022 showed severe sleep apnea with an index of 65.7 events per hour with significant O2 desaturations. Patient uses his CPAP nightly with oxygen bled in at 2 L. Because the patient had an overnight oximetry study January 2023 while on CPAP alone that showed the patient spent 2 hours and 40 minutes with sats less than 88%. - Noncontrast CT chest completed at [facility] August 26, 2024 stable small scattered nodules in the lungs measuring up to 6 mm in diameter. Linear region of soft tissue thickening posterior lateral right upper lobe not significantly changed. Cholelithiasis and esophageal wall thickening were also noted. Plans were made at that time for repeat CT chest in July 2025. - Patient also states that he has been diagnosed with a brain tumor currently following with [facility] -the neurologist told the patient that he suspects it is benign however needs further follow-up. - Lifelong non-smoker however did have secondhand smoke exposure as a child. - Patient has lost 18 pounds since previous visit. Congratulated encouraged to continue with his efforts. Currently on Ozempic. - Plan: - - Order CT chest without contrast to be done in July 2025 through [facility]. I did advise the patient that he will have to bring the disc to that appointment. However when you send the order please also request that they send us a copy of the disc. Unfortunately we will have to compare those images to the CT chest from [facility] however this is the most cost effective measure for the patient. If this is stable this will conclude surveillance - Continue auto CPAP 14-18 for now - Order BiPAP titration study as the CPAP alone is not sufficient at resolving the apneic events he is still having 14/h - Continue oxygen at 2 L/min bled in with the CPAP - Avoid sleeping supine - Target ideal body weight - Strengthening conditioning will help - Keep follow-up with neurology - Return to clinic in mid to late July 2025 to go over results of the CT chest however we will call with results of the sleep study in the meantime. We may need to adjust follow-up accordingly if he does get a new device. - There is a need for continued longitudinal care to the above medical conditions, and patient will have appropriate follow-up appointments scheduled. - Note prepared by voice recognition software. Please disregard any dictation, spelling, or grammatical errors. - 02/19/2025 Chronic respiratory failure with hypoxia (ICD-10 - J96.11) - - Patient is here for follow-up evaluation of sarcoidosis and TEA - Download reviewed shows 100% compliance average use is 7 hours and 58 minutes a night, auto CPAP of 13-18, residual AHI is 14.8. Patient is using and benefiting from therapy. Sleep remedies as a DME. This is actually improved when compared to previous download when AHI was 17.6. His leaks have actually improved which I think is likely helping. However because the events are 14/h we will proceed with BiPAP titration. -Sleep study performed through the sleep clinic April 03, 2022 showed severe sleep apnea with an index of 65.7 events per hour with significant O2 desaturations. Patient uses his CPAP nightly with oxygen bled in at 2 L. Because the patient had an overnight oximetry study January 2023 while on CPAP alone that showed the patient spent 2 hours and 40 minutes with sats less than 88%. - Noncontrast CT chest completed at [facility] August 26, 2024 stable small scattered nodules in the lungs measuring up to 6 mm in diameter. Linear region of soft tissue thickening posterior lateral right upper lobe not significantly changed. Cholelithiasis and esophageal wall thickening were also noted. Plans were made at that time for repeat CT chest in July 2025. - Patient also states that he has been diagnosed with a brain tumor currently following with neuro -the neurologist told the patient that he suspects it is benign however needs further follow-up. - Lifelong non-smoker however did have secondhand smoke exposure as a child. - Patient has lost 18 pounds since previous visit. Congratulated encouraged to continue with his efforts. Currently on Ozempic. - Plan: - - Order CT chest without contrast to be done in July 2025 through [facility]. I did advise the patient that he will have to bring the disc to that appointment. However when you send the order please also request that they send us a copy of the disc. Unfortunately we will have to compare those images to the CT chest from [facility] however this is the most cost effective measure for the patient. If this is stable this will conclude surveillance - Continue auto CPAP 14-18 for now - Order BiPAP titration study as the CPAP alone is not sufficient at resolving the apneic events he is still having 14/h - Continue oxygen at 2 L/min bled in with the CPAP - Avoid sleeping supine - Target ideal body weight - Strengthening conditioning will help - Keep follow-up with neurology - Return to clinic in mid to late July 2025 to go over results of the CT chest however we will call with results of the sleep study in the meantime. We may need to adjust follow-up accordingly if he does get a new device. - There is a need for continued longitudinal care to the above medical conditions, and patient will have appropriate follow-up appointments scheduled. - Note prepared by voice recognition software. Please disregard any dictation, spelling, or grammatical errors. - 02/19/2025 Lung field abnormal (ICD-10 - R91.8) - - Patient is here for follow-up evaluation of sarcoidosis and TEA - Download reviewed shows 100% compliance average use is 7 hours and 58 minutes a night, auto CPAP of 13-18, residual AHI is 14.8. Patient is using and benefiting from therapy. Sleep remedies as a DME. This is actually improved when compared to previous download when AHI was 17.6. His leaks have actually improved which I think is likely helping. However because the events are 14/h we will proceed with BiPAP titration. -Sleep study performed through the sleep clinic April 03, 2022 showed severe sleep apnea with an index of 65.7 events per hour with significant O2 desaturations. Patient uses his CPAP nightly with oxygen bled in at 2 L. Because the patient had an overnight oximetry study January 2023 while on CPAP alone that showed the patient spent 2 hours and 40 minutes with sats less than 88%. - Noncontrast CT chest completed at [facility] August 26, 2024 stable small scattered nodules in the lungs measuring up to 6 mm in diameter. Linear region of soft tissue thickening posterior lateral right upper lobe not significantly changed. Cholelithiasis and esophageal wall thickening were also noted. Plans were made at that time for repeat CT chest in July 2025. - Patient also states that he has been diagnosed with a brain tumor currently following with [facility] -the neurologist told the patient that he suspects it is benign however needs further follow-up. - Lifelong non-smoker however did have secondhand smoke exposure as a child. - Patient has lost 18 pounds since previous visit. Congratulated encouraged to continue with his efforts. Currently on Ozempic. - Plan: - - Order CT chest without contrast to be done in July 2025 through [facility]. I did advise the patient that he will have to bring the disc to that appointment. However when you send the order please also request that they send us a copy of the disc. Unfortunately we will have to compare those images to the CT chest from [facility] however this is the most cost effective measure for the patient. If this is stable this will conclude surveillance - Continue auto CPAP 14-18 for now - Order BiPAP titration study as the CPAP alone is not sufficient at resolving the apneic events he is still having 14/h - Continue oxygen at 2 L/min bled in with the CPAP - Avoid sleeping supine - Target ideal body weight - Strengthening conditioning will help - Keep follow-up with neurology - Return to clinic in mid to late July 2025 to go over results of the CT chest however we will call with results of the sleep study in the meantime. We may need to adjust follow-up accordingly if he does get a new device. - There is a need for continued longitudinal care to the above medical conditions, and patient will have appropriate follow-up appointments scheduled. - Note prepared by voice recognition software. Please disregard any dictation, spelling, or grammatical errors. - 02/19/2025 Sarcoidosis of lung (ICD-10 - D86.0) - - Patient is here for follow-up evaluation of sarcoidosis and TEA - Download reviewed shows 100% compliance average use is 7 hours and 58 minutes a night, auto CPAP of 13-18, residual AHI is 14.8. Patient is using and benefiting from therapy. Sleep remedies as a DME. This is actually improved when compared to previous download when AHI was 17.6. His leaks have actually improved which I think is likely helping. However because the events are 14/h we will proceed with BiPAP titration. -Sleep study performed through the sleep clinic April 03, 2022 showed severe sleep apnea with an index of 65.7 events per hour with significant O2 desaturations. Patient uses his CPAP nightly with oxygen bled in at 2 L. Because the patient had an overnight oximetry study January 2023 while on CPAP alone that showed the patient spent 2 hours and 40 minutes with sats less than 88%. - Noncontrast CT chest completed at [facility] August 26, 2024 stable small scattered nodules in the lungs measuring up to 6 mm in diameter. Linear region of soft tissue thickening posterior lateral right upper lobe not significantly changed. Cholelithiasis and esophageal wall thickening were also noted. Plans were made at that time for repeat CT chest in July 2025. - Patient also states that he has been diagnosed with a brain tumor currently following with neuro -the neurologist told the patient that he suspects it is benign however needs further follow-up. - Lifelong non-smoker however did have secondhand smoke exposure as a child. - Patient has lost 18 pounds since previous visit. Congratulated encouraged to continue with his efforts. Currently on Ozempic. - Plan: - - Order CT chest without contrast to be done in July 2025 through [facility]. I did advise the patient that he will have to bring the disc to that appointment. However when you send the order please also request that they send us a copy of the disc. Unfortunately we will have to compare those images to the CT chest from [facility] however this is the most cost effective measure for the patient. If this is stable this will conclude surveillance - Continue auto CPAP 14-18 for now - Order BiPAP titration study as the CPAP alone is not sufficient at resolving the apneic events he is still having 14/h - Continue oxygen at 2 L/min bled in with the CPAP - Avoid sleeping supine - Target ideal body weight - Strengthening conditioning will help - Keep follow-up with neurology - Return to clinic in mid to late July 2025 to go over results of the CT chest however we will call with results of the sleep study in the meantime. We may need to adjust follow-up accordingly if he does get a new device. - There is a need for continued longitudinal care to the above medical conditions, and patient will have appropriate follow-up appointments scheduled. - Note prepared by voice recognition software. Please disregard any dictation, spelling, or grammatical errors. - 02/19/2025 Fatigue, unspecified type (ICD-10 - R53.83) - - Patient is here for follow-up evaluation of sarcoidosis and TEA - Download reviewed shows 100% compliance average use is 7 hours and 58 minutes a night, auto CPAP of 13-18, residual AHI is 14.8. Patient is using and benefiting from therapy. Sleep remedies as a DME. This is actually improved when compared to previous download when AHI was 17.6. His leaks have actually improved which I think is likely helping. However because the events are 14/h we will proceed with BiPAP titration. -Sleep study performed through the sleep clinic April 03, 2022 showed severe sleep apnea with an index of 65.7 events per hour with significant O2 desaturations. Patient uses his CPAP nightly with oxygen bled in at 2 L. Because the patient had an overnight oximetry study January 2023 while on CPAP alone that showed the patient spent 2 hours and 40 minutes with sats less than 88%. - Noncontrast CT chest completed at [facility] August 26, 2024 stable small scattered nodules in the lungs measuring up to 6 mm in diameter. Linear region of soft tissue thickening posterior lateral right upper lobe not significantly changed. Cholelithiasis and esophageal wall thickening were also noted. Plans were made at that time for repeat CT chest in July 2025. - Patient also states that he has been diagnosed with a brain tumor currently following with [facility] -the neurologist told the patient that he suspects it is benign however needs further follow-up. - Lifelong non-smoker however did have secondhand smoke exposure as a child. - Patient has lost 18 pounds since previous visit. Congratulated encouraged to continue with his efforts. Currently on Ozempic. - Plan: - - Order CT chest without contrast to be done in July 2025 through [facility]. I did advise the patient that he will have to bring the disc to that appointment. However when you send the order please also request that they send us a copy of the disc. Unfortunately we will have to compare those images to the CT chest from [facility] however this is the most cost effective measure for the patient. If this is stable this will conclude surveillance - Continue auto CPAP 14-18 for now - Order BiPAP titration study as the CPAP alone is not sufficient at resolving the apneic events he is still having 14/h - Continue oxygen at 2 L/min bled in with the CPAP - Avoid sleeping supine - Target ideal body weight - Strengthening conditioning will help - Keep follow-up with neurology - Return to clinic in mid to late July 2025 to go over results of the CT chest however we will call with results of the sleep study in the meantime. We may need to adjust follow-up accordingly if he does get a new device. - There is a need for continued longitudinal care to the above medical conditions, and patient will have appropriate follow-up appointments scheduled. - Note prepared by voice recognition software. Please disregard any dictation, spelling, or grammatical errors. - 02/19/2025 Shortness of breath (ICD-10 - R06.02) - - Patient is here for follow-up evaluation of sarcoidosis and TEA - Download reviewed shows 100% compliance average use is 7 hours and 58 minutes a night, auto CPAP of 13-18, residual AHI is 14.8. Patient is using and benefiting from therapy. Sleep remedies as a DME. This is actually improved when compared to previous download when AHI was 17.6. His leaks have actually improved which I think is likely helping. However because the events are 14/h we will proceed with BiPAP titration. -Sleep study performed through the sleep clinic April 03, 2022 showed severe sleep apnea with an index of 65.7 events per hour with significant O2 desaturations. Patient uses his CPAP nightly with oxygen bled in at 2 L. Because the patient had an overnight oximetry study January 2023 while on CPAP alone that showed the patient spent 2 hours and 40 minutes with sats less than 88%. - Noncontrast CT chest completed at [facility] August 26, 2024 stable small scattered nodules in the lungs measuring up to 6 mm in diameter. Linear region of soft tissue thickening posterior lateral right upper lobe not significantly changed. Cholelithiasis and esophageal wall thickening were also noted. Plans were made at that time for repeat CT chest in July 2025. - Patient also states that he has been diagnosed with a brain tumor currently following with [facility] -the neurologist told the patient that he suspects it is benign however needs further follow-up. - Lifelong non-smoker however did have secondhand smoke exposure as a child. - Patient has lost 18 pounds since previous visit. Congratulated encouraged to continue with his efforts. Currently on Ozempic. - Plan: - - Order CT chest without contrast to be done in July 2025 through [facility]. I did advise the patient that he will have to bring the disc to that appointment. However when you send the order please also request that they send us a copy of the disc. Unfortunately we will have to compare those images to the CT chest from [facility] however this is the most cost effective measure for the patient. If this is stable this will conclude surveillance - Continue auto CPAP 14-18 for now - Order BiPAP titration study as the CPAP alone is not sufficient at resolving the apneic events he is still having 14/h - Continue oxygen at 2 L/min bled in with the CPAP - Avoid sleeping supine - Target ideal body weight - Strengthening conditioning will help - Keep follow-up with neurology - Return to clinic in mid to late July 2025 to go over results of the CT chest however we will call with results of the sleep study in the meantime. We may need to adjust follow-up accordingly if he does get a new device. - There is a need for continued longitudinal care to the above medical conditions, and patient will have appropriate follow-up appointments scheduled. - Note prepared by voice recognition software. Please disregard any dictation, spelling, or grammatical errors. - 02/19/2025 Abnormal lung field (ICD-10 - R91.8) - - Patient is here for follow-up evaluation of sarcoidosis and TEA - Download reviewed shows 100% compliance average use is 7 hours and 58 minutes a night, auto CPAP of 13-18, residual AHI is 14.8. Patient is using and benefiting from therapy. Sleep remedies as a DME. This is actually improved when compared to previous download when AHI was 17.6. His leaks have actually improved which I think is likely helping. However because the events are 14/h we will proceed with BiPAP titration. -Sleep study performed through the sleep clinic April 03, 2022 showed severe sleep apnea with an index of 65.7 events per hour with significant O2 desaturations. Patient uses his CPAP nightly with oxygen bled in at 2 L. Because the patient had an overnight oximetry study January 2023 while on CPAP alone that showed the patient spent 2 hours and 40 minutes with sats less than 88%. - Noncontrast CT chest completed at [facility] August 26, 2024 stable small scattered nodules in the lungs measuring up to 6 mm in diameter. Linear region of soft tissue thickening posterior lateral right upper lobe not significantly changed. Cholelithiasis and esophageal wall thickening were also noted. Plans were made at that time for repeat CT chest in July 2025. - Patient also states that he has been diagnosed with a brain tumor currently following with neuro -the neurologist told the patient that he suspects it is benign however needs further follow-up. - Lifelong non-smoker however did have secondhand smoke exposure as a child. - Patient has lost 18 pounds since previous visit. Congratulated encouraged to continue with his efforts. Currently on Ozempic. - Plan: - - Order CT chest without contrast to be done in July 2025 through [facility]. I did advise the patient that he will have to bring the disc to that appointment. However when you send the order please also request that they send us a copy of the disc. Unfortunately we will have to compare those images to the CT chest from [facility] however this is the most cost effective measure for the patient. If this is stable this will conclude surveillance - Continue auto CPAP 14-18 for now - Order BiPAP titration study as the CPAP alone is not sufficient at resolving the apneic events he is still having 14/h - Continue oxygen at 2 L/min bled in with the CPAP - Avoid sleeping supine - Target ideal body weight - Strengthening conditioning will help - Keep follow-up with neurology - Return to clinic in mid to late July 2025 to go over results of the CT chest however we will call with results of the sleep study in the meantime. We may need to adjust follow-up accordingly if he does get a new device. - There is a need for continued longitudinal care to the above medical conditions, and patient will have appropriate follow-up appointments scheduled. - Note prepared by voice recognition software. Please disregard any dictation, spelling, or grammatical errors. - Plan Of Treatment Pending Test Test Name Order Date Chest X-ray PA and lateral 02/05/2024 CT Scan : Chest without contrast 024 CT Scan : Chest without contrast CT Scan : Chest without contrast 025 POLYSOMNOGRAPHY W/CPAP 09/06/2024 POLYSOMNOGRAPHY, 4 OR MORE 02/20/2025 POLYSOMNOGRAPHY, 4 OR MORE 04/02/2025 Insurance Providers Payer Name Payer Address Payer Phone Subscriber Number Group Number Insured Name Patient Relationship to Insured Coverage Start Date Coverage End Date [facility] [address] [place] [address] [id number] IZABELA POE Self - patient is the insured 4 [facility] [address] [place] [address] [id number] IZABELA POE Self - patient is the insured Medicare of [place] [address] [place] [phone] [id number] PART A ONLY IZABELA POE Self - patient is the insured Medical (General) History Medical History History ICD Code Nodule TEA Hospitalization History Reason Date(Month/Year) [facility] - ER Visit, Hypertension, 3 day stay 05/02/24
--- OUTSIDE RECORDS SUMMARY | 2025-08-25 13:28 | XMS_ITS | Clinical Summary ---
Author Organization [facility] Address [address] [place] [address] Phone Care Team Providers Care Client Services Coordinator Name Role Phone Unavailable Primary Care [...] Diagnosed Date Abnormal EKG 05/16/2024 CAD in [place] artery 05/16/2024 Type 2 diabetes mellitus without complication Atherosclerosis of coronary artery without angin a pectoris 07/02/2023 Stented coronary artery 07/02/2023 Mixed hyperlipidemia 01/27/2023 Essential hypertension 07/17/2022 Obstructive sleep apnea syndrome 07/17/2022 Paroxysmal atrial fibrillation 07/17/2022 Chronic lung disease 04/06/2022 Moderate mitral regurgitation 04/06/2022 Chest pain 09/23/2020 Myocardial infarction 09/23/2020 Immunizations Immunization Administration Dates Next Due Influenza, [...] Discontinued FIT Discontinued FOBT Discontinued HPV Vaccines (No Doses Required) Completed Hepatitis B Vaccines Aged Out No long er eligible based on patient's age to complete this topic RSV Vaccine Pediatric Aged Out No oscar tabitha eligible based on patient's age to complete this topic Sigmoidoscopy Discontinued Insurance [facility]
--- OUTSIDE RECORDS SUMMARY | 2025-08-25 13:28 | XMS_ITS | Encounter Summary ---
Author Organization [facility] Address [address] [place] [address] Care Team Providers Care Nursing Clinical Director Name Role Phone Unavailable Primary Care Provider Unavailabl e Encounter Details Date Type Department Care Team (Late st Contact Info) Description 05/17/2021 Lab Requisition [facility] [place] [address] 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 Gender Identity Not on file Sexual Orientation Not on file documented as of this encounter Plan of Treatment Not on file documented as of this encounter Procedures Procedure Name Priority Date/Time Associated Diagnosis Comments PATHOLOGY Routine 05/17/2021 10:00 AM CDT documented in this encounter Results * PATHOLOGY (05/17/2021 10:00 AM CDT) CASE REPORT Surgical Pathology Report Case: [id number] Authorizing Provider: Tomás Alamo PA Collected: 05/17/2021 10:00 AM Ordering Location: [facility] Received: 05/17/2021 12:52 PM Services [place] Pathologist: Dipak Perera MD Specimens: A) - Forearm, right, LIPOMA CN [id number] B) - Shoulder, left, SEBACEOUS CYST 05/18/2021 10:22 AM [facility] FINAL DIAGNOSIS A. Soft tissue, right forearm, excision- Angiolipoma B. Skin, left shoulder, excision- Epidermal inclusion cyst 05/18/2021 10:22 AM [facility] Verified by Dipak [...] material. RSS 1. KM 05/18/2021 10:22 AM [facility] OPERATIVE PROCEDURE A. [id number] B. [id number] 05/18/2021 10:22 AM [facility] CLINICAL INFORMATION No Dx found. 05/18/2021 10:22 AM [facility] COMMENT [facility] Surgical cases might have been signed out in the following labs: [facility], CLIA#[id number] , [address], [place] [address] [facility], CLIA# [id number], [address] [place] [address] 05/18/2021 10:22 AM [facility] Tissue (Forearm, right) 05/17/2021 10:00 AM CDT 05/17/2021 12:52 PM CDT Tissue specimen (specimen) (Shoulder, left) 05/17/2021 10:22 AM CDT 05/17/2021 12:52 PM CDT Tomás Alamo PA-C PATHOLOGY/CYTOLOGY ORDERABLES Final Result [facility] CLIA# [id number] [address] [place] [id number] documented in this encounter Visit Diagnoses Not on filedocumented in this encounter
--- OUTSIDE RECORDS SUMMARY | 2025-08-25 13:28 | XMS_ITS ---
Author Organization [facility] Address [address] [facility] [place] [address] Phone Care Team Providers Care Neonatal Intensive Care Nurse Name Role Phone Glen Alfaro DDS Unavailable Katie Tsang DO Primary Care Provider +1- [phone] Basilia Blackwell RN Unavailable Unavailable Care Coordination Status:Enrolled (Active) Start date:07/03/2025 Enrollment date:07/03/2025 Case Team Name Relationship Phone Basilia Blackwell RN Registered Nurse Continued Care and Services Coordination
--- OUTSIDE RECORDS SUMMARY | 2025-08-25 13:28 | XMS_ITS | Encounter Summary ---
Author Organization [facility] Address [address] [place] [address] Phone Care Team Providers Care Informix Developer Name Role Phone Glen Alfaro DDS Unavailable Katie Tsang DO Primary Care Provider [phone]- [phone] Basilia Blackwell RN Unavailable Unavailable Reason for Visit * Reason Comments Med Refill Encounter Details Date Type Department Care Team (Late st Contact Info) Description 08/25/2025 Refill [facility] Primary Care Clinic [address] [place] [address] Katie Tsang DO [address] [place], [place] [id number] Essential (primary) hypertension Social History Tobacco Use Types Packs/Day Years Used Date Smoking Tobacco: Never Assessed Sex and Gender Information Value Date Recorded Sex Assigned at Not on file Legal Sex Male 12:27 PM CDT Gender Identity Not on file Sexual Orientation Not on file Primary [place] Affiliation [place] documented as of this encounter Miscellaneous Notes * Telephone Encounter - Alize Leong LPN - 08/25/2025 8:17 AM CST Chart reviewed. No future appointments scheduled with newly assigned PCP, Dr. Ragsdale. Patient will need to schedule an appointment with PCP to continue receiving medication refills. Nurse contacted patient via phone, verified name and . Nurse discussed above, patient verbalizedunderstanding and agreeable. Patient reported that he has moved to [place] and has established care with a PCP there. Nurse inquired whether the patient wished to continue care at [facility] and informed him that continuation of care requires at least an annual office visit. Patient verbalized understanding and stated he would like to continue care at [facility]. Nurse inquired when the patient would be returning to [place]. Patient stated he will not be returning for several months and does not have a specific return date at this time. Nurse advised [facility]to contact the [facility] once he has determined a return date so an appointment can be scheduled. Patient verbalized understanding. Refills pended and sent to PCP for review. No further questions or needs voiced at this time. 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
--- OUTSIDE RECORDS SUMMARY | 2025-08-25 13:29 | XMS_ITS | Clinical Summary ---
Author Organization [facility] Address [address] [facility] [address] [place] [address] Phone Care Team Providers Care Team Guide Name Role Phone Pcp, Unknown Primary Care Provider Unavailabl e Encounters Date Type Department Care Team Description 06/25/2025 7:44 AM EDT - 06/25/2025 11:59 PM EDT Hospital Encounter [facility] [address] [place] [address] Mitch Dee MD Discharge Disposition: Home or [...] Upcoming Encounters Date Type Department Care Team ([facility] st Contact Info) Description 09/24/2025 1:00 PM EST Office Visit [facility] [address] [place] [address] Merle Garces MD [address] [facility], [address] [place] [address] [email or web address] Health Maintenance Due Date Last Done Comments [...] EDT) SODIUM 142 133 - 146 mmol/L [facility] POTASSIUM 4.3 3.3 - 5.1 mmol/L [facility] CHLORIDE 104 96 - 108 mmol/L [facility] CO2 29 21 - 35 mmol/L [facility] BUN 15 6 - 19 mg/dL [facility] CREATININE 1.20 0.5 - 1.5 mg/dL [facility] GLUCOSE 77 70 - 99 mg/dL [facility] ALBUMIN 4.2 3.9 - 4.8 g/dL [facility] TOTAL PROTEIN 6.3(L) 6.5 - 8.0 g/dL [facility] CALCIUM 10.1 8.4 - 10.3 mg/dL [facility] ALKALINE PHOSPHATASE 44 39 - 117 U/L [facility] TOTAL BILIRUBIN 1.7(H) 0.0 - 1.2 mg/dL [facility] AST 29 0 - 37 U/L [facility] ALT 15 0 - 40 U/L [facility] GLOBULIN 2.1 1 - 4.8 g/dL [facility] EGFR 63 >59 mL/min/1.7 3m2 [facility] Comment:Estimated glomerular filtration rate calculated using the CKD-EPI refit equation. ANION GAP 13 10 - 20 mmol/L [facility] Blood 06/27/2025 5:43 AM EDT 06/27/2025 8:33 AM EDT us Mitch Dee MD LAB BLOOD BKR ORDERABLES Final R esult Performing Organization Address City/State/[facility] Co de Phone Number [address] [address] * (ABNORMAL) CBC and differential (06/27/2025 5:43 AM EDT) WBC 8.08 4.00 - 11.00 K/uL [facility] RBC 4.92 4.50 - 5.90 M/uL [facility] HGB 13.2(L) 13.5 - 17.5 g/dL [facility] HCT 41.1 41.0 - 53.0 % [facility] PLT 242 150 - 450 K/uL [facility] MCV 83.5 80.0 - 100.0 fL [facility] MCH 26.8(L) 27.0 - 31.0 pg [facility] MCHC 32.1 32.0 - 36.0 g/dL [facility] RDW 19.2(H) 11.5 - 14.5 % [facility] MPV 11.8 8.4 - 12.0 fL [facility] NRBC 0.00 0.00 /100 WBCs [facility] ABSOLUTE NRBC 0.00 0.00 K/uL [facility] DIFF METHOD Auto [facility] NEUTS 53.4 48.0 - 76.0 % [facility] LYMPHS 28.8 18.0 - 41.0 % [facility] MONOS 14.9(H) 4.0 - 11.0 % [facility] EOS 1.6 0.0 - 5.0 % [facility] BASOS 1.1 0.0 - 1.5 % [facility] Granulocytes, immature (%) 0.2 0.0 - 0.9 % [facility] ABSOLUTE NEUTS 4.31 1.92 - 7.60 K/uL [facility] ABSOLUTE LYMPHS 2.33 0.72 - 4.10 K/uL [facility] ABSOLUTE MONOS 1.20(H) 0.16 - 1.10 K/uL [facility] ABSOLUTE EOS 0.13 0.00 - 0.50 K/uL [facility] ABSOLUTE BASOS 0.09 0.00 - 0.15 K/uL [facility] Granulocytes, immature 0.02 0.00 - 0.09 K/uL [facility] Blood 06/27/2025 5:43 AM EDT 06/27/2025 8:33 AM EDT us Mitch Dee MD LAB BLOOD BKR ORDERABLES Final R esult [facility] [address] [place] [address] from Last 3 Months Insurance [facility] [employer] [place] [address] [place] [address] MEDICARE A [facility] MEDICARE A MEDICARE A MEDICARE A [facility] MEDICARE A Care Teams Team Guide Relationship Specialty Start Date End Date Pcp, Unknown PCP - General 04/29/25 Additional Source Comments The information contained in this document represents components of the legal health record. It is not the complete legal health record.[facility]
[2025-08-25] MEDS: Lactated Ringers 1,000 ML 80 ML IVCONT (13:30)
--- NOTE | 2025-08-25 14:42 | PHA.MEDREC ---
Addendum entered by Lluvia Stafford [facility] 08/25/25 16:27: REVIEWED BY PHARMACIST Original Note: Pharmacy Consult ? Medication Reconciliation Pharmacy has completed the medication reconciliation. Spoke with pt and pt son at bedside was able to confirm pt medications. Pt no longer taking baby aspirin and was told to stop that by 07/08.
--- NOTE | 2025-08-25 15:14 | PM.IMHP ---
History of Present Illness Date of Service: 08/25/25 Chief Complaint: Dizziness 75-year-old male with past medical history of CKD, pleural effusion, CHF with EF 40-45% last checked in May of 2025, anemia, right ventricular heart failure, cirrhosis, hepatorenal syndrome, anemia, diabetes 1.5,BPH, cardiorenal syndrome, hypertension, hyperlipidemia, AFib on Eliquis, CAD he is status post ablation at [facility] with a discharge on 07/30 he was continues on amiodarone the son states no other medications or change. They did recently travel for the holidays to [place] he has been taking all of his medications as prescribed. They note they return he started to feel sick they think he was exposed to someone there. He states overall he just feels weak and dizzy every time he stands on Monday he got up and tried to get ice out of the refrigerator he woke up on the ground he is not sure how much time he was on the ground for. Patient has had multiple admissions since May with to others for dizziness. At this point in time he is hemodynamically stable. He was scanned in the ER chest abdomen head and neck all negative Review of Systems Review of Systems: Denies chest pain Denies shortness of breath Denies nausea vomiting diarrhea Denies fever chills [facility] Medical History (Updated 08/25/25 @ 15:29 by Simon Schmidt DO) Pleural effusion CVA (cerebral vascular accident) TEA (obstructive sleep apnea) Hypertension Constipation Gallstone Depression Visual hallucination Myocardial infarct CAD (coronary artery disease) History of cardioversion Diabetes 1.5, managed as type 2 BPH (benign prostatic hyperplasia) Shock liver VERONICA (nonalcoholic steatohepatitis) History of alcohol abuse Essential hypertension A-fib Mass, brain Sarcoidosis GERD (gastroesophageal reflux disease) Hyperlipidemia Type 2 diabetes mellitus CHF (congestive heart failure) Surgical History H/O heart artery stent Social History Household Members: Family Household Members Other:: Son and daughter in law Housing: Apartment Do you presently have visiting nurse or other home services: No Comment: patients son turns off bed alarm at times Patient Tobacco Use Status: Never used Tobacco Tobacco use type: Cigarette Smoked in Last 30 Days: No e-Cigarette/Vaping Use: Never Used Second Hand Smoke Exposure: No Use of substances other than those prescribed or required for medical reasons: No Advance Directives: Yes Advance Directives on File: Yes Advance Directives Date on File: 06/25/25 Do you have a plan to hurt others: No Plan service: No Current occupational status: retired Cognitive needs: No Hearing needs: Yes Vision needs: Yes Meds Allergies Allergy/AdvReac Type Severity Reaction Status Date / Time erythromycin base AdvReac Unknown Verified 08/25/25 10:21 lisinopril AdvReac Unknown Verified 08/25/25 10:21 Penicillins AdvReac Unknown Verified 08/25/25 10:21 Active Medications: Current Medications Acetaminophen (Acetaminophen 325 Mg Tablet) 650 mg PO Q6H PRN PRN Reason: Pain, Mild 1-3,fever,headache Calcium Carbonate (Calcium Carbonate 750 Mg Tab.Chew) 750 mg PO Q4H PRN PRN Reason: Heartburn Lactated Ringer's (Lr) 1,000 mls @ 80 mls/hr IVCONT .[id number] [facility] Last Admin: 08/25/25 13:30 Dose: 80 mls/hr Magnesium Hydroxide (Milk Of Magnesia 30 Ml Oral.Susp) 30 ml PO DAILY PRN PRN Reason: Constipation Melatonin (Melatonin 3 Mg Tablet) 6 mg PO BEDTIME PRN PRN Reason: Insomnia Ondansetron HCl (Ondansetron Hcl 4 Mg/2 Ml Vial) 4 mg IVPUSH Q8H PRN PRN Reason: Nausea and Vomiting Sodium Chloride (0.9 % Sodium Chloride Flush 3 Ml Syringe) 3 [facility] Medications ?Medication ?Instructions ?Recorded ?Confirmed ?Last Taken ?Type amiodarone 200 mg tablet (Pacerone) 200 mg PO BID 05/15/25 08/25/25 08/25/25 History calcium carbonate (Antacid Ext Str 1 tab PO Q4H PRN Heartburn 06/19/25 08/25/25 06/18/25 History (calcium carb)) cholecalciferol (vitamin D3) 50 50 mcg PO DAILY 08/25/25 08/25/25 08/25/25 History mcg (2,000 unit) tablet (Vitamin D3) metformin 500 mg tablet,extended 1,000 mg PO BEDTIME 1208/25/25 08/24/25 History release 24 hr Physical Exam Vital Signs and Narrative: Vital Signs: Last Vital Signs Temp 98.1 F 08/25/25 13:26 Pulse 57 08/25/25 13:26 Resp 18 08/25/25 13:26 BP 110/54 L 08/25/25 14:16 Pulse Ox 95 08/25/25 13:26 O2 Del Method Room Air 08/25/25 13:26 BMI result Body Mass Index 25.2 Const: Other: Awake alert no acute distress Resp: Other: Clear to auscultation bilaterally no rales rhonchi or wheezes Cardio: Other: No S4; positive S1-S2; no S3 murmurs rubs or gallops GI: Other: Soft nontender nondistended normoactive bowel sounds Neuro: Other: Cranial nerves 2-12 grossly intact as tested. Motor is 5/5 all extremities. Sensation is intact. Cognition appropriate. Gait not observed Extrem: Other: No edema bilaterally Results Labs 08/25/25 11:18 08/25/25 11:18 Labs: Laboratory Results - last 24 hr 08/25/25 08/25/25 11:18 12:15 MCV 84.3 MCH 27.6 MCHC 32.8 RDW 22.9 H Plt Count 245 MPV 10.9 Immature Gran % (Auto) 0.7 H Neut % (Auto) 83.2 H Lymph % (Auto) 4.9 L [place] % (Auto) 10.5 Eos % (Auto) 0.3 Baso % (Auto) 0.4 Lymph # (Auto) 1.0 L [place] # (Auto) 2.2 H Eos # (Auto) 0.1 Baso # (Auto) 0.1 Abs Immat Gran (auto) 0.15 H Absolute Neuts (auto) 17.4 H Absolute Nucleated RBC 0.000 Nucleated RBC % (auto) 0.0 Smear Tech's Comments VERIFIED Anion Gap 14 Estim Creat Clear Calc 22.2 Estimated GFR 19 Random Glucose 154 H Lactic Acid 1.9 1.7 Calcium 10.2 Magnesium 2.2 Total Bilirubin 1.2 H Direct Bilirubin 0.6 H AST 29 ALT 21 Alkaline Phosphatase 47 Total Creatine Kinase 36 L Troponin I High Sens 10.9 D C-Reactive Protein 9.76 H Total Protein 6.6 Albumin 4.1 Lipase 46 Procalcitonin 0.26 Urine Color Yellow Urine Appearance Clear Urine pH 5.5 Ur Specific [place] 1.020 Urine Protein Negative Urine Glucose (UA) >=1000 H Urine Ketones Negative Urine Blood Negative Urine Nitrite Negative Ur Leukocyte Esterase Negative Urine RBC 0-2 Urine WBC 0-5 Ur Squamous Epith Cells 0-2 Other Crystals Present Urine Bacteria None Seen Hyaline Casts 0-2 Influenza Type A (PCR) NEGATIVE Influenza Type B (PCR) NEGATIVE RSV RNA Qual (PCR) NEGATIVE SARS-CoV-2 RNA (RT-PCR) NEGATIVE Blood Type A Positive Antibody Screen NEGATIVE Imaging Radiologist's Impressions: Impressions Cervical Spine CT 08/25/25 10:36 IMPRESSION: 1. No CT evidence of acute cervical spine fracture or injury. Electronically signed by: Thien Rodney MD 08/25/2025 11:12 AM EST RP Head CT 08/25/25 10:36 IMPRESSION: No acute intracranial abnormality. Electronically signed by: Teo Dominguez MD 08/25/2025 11:07 AM EST RP Chest X-Ray 08/25/25 10:45 IMPRESSION: No definite acute abnormality is seen. A nodular density in the right upper lung zone on one view likely represents a confluence of osseous shadows. Follow-up PA and lateral views are recommended when the patient is able. Electronically signed by: Teo Dominguez MD 08/25/2025 11:03 AM EST RP Knee X-Ray 08/25/25 11:37 IMPRESSION: 1. No acute bony abnormalities. No joint effusion. 2. Very mild tricompartmental osteoarthritis. 3. Vascular calcifications throughout the soft tissues. Electronically signed by: Thien Rodney MD 08/25/2025 11:56 AM EST RP Ankle X-Ray 08/25/25 11:40 IMPRESSION: 1. Minimally displaced avulsion fracture lateral malleolus. 2. Suspect tiny avulsion fractures medial malleolus. 3. Soft tissue swelling and joint effusion. Electronically signed by: Thien Rodney MD 08/25/2025 11:54 AM EST RP Abdomen/Pelvis CT 08/25/25 12:37 IMPRESSION: 1. Study limited by lack of IV contrast. Within these confines, no acute findings in the abdomen or pelvis. 2. Cholelithiasis without CT evidence of acute cholecystitis. 3. Perirenal stranding bilaterally, nonspecific. No hydronephrosis or hydroureter. 4. There is mild wall thickening of the urinary bladder, however it is underdistended. UTI not excluded. 5. There is mild constipation present. 6. Ancillary findings as discussed in the body of the report. Electronically signed by: Thien Rodney MD 08/25/2025 01:38 PM EST RP Chest CT 08/25/25 12:37 IMPRESSION: 1. No acute thoracic abnormalities. The lungs are clear aside from stable scarring in the posterior segment of the right upper lobe. 2. Heavy coronary calcification present. 3. Ectatic ascending aorta at 4.1 cm diameter. 4. Resolution of previously seen right pleural effusion. 5. There is evidence of prior granulomatous disease. Electronically signed by: Thien Rodney MD 08/25/2025 01:23 PM EST RP Assessment and Plan (1) Syncope: Qualifiers: Syncope type: unspecified Qualified Code(s): R55 - Syncope and collapse Status: Acute (2) Essential hypertension: Status: Acute (3) CHF (congestive heart failure): Qualifiers: Heart failure type: systolic Heart failure chronicity: chronic Qualified Code(s): I50.22 - Chronic systolic (congestive) heart failure Status: Acute (4) Diabetes 1.5, managed as type 2: Status: Acute Plan 75-year-old male with a history of CKD, CHF with EF 40-45% May of 2025, anemia, cirrhosis, and diabetes mellitus along with AFib on Eliquis presents after syncopal episode. See H&P for details he states overall he just feels weak and dizzy. Viral panel negative. CT scan of head neck chest and abdomen failed to demonstrate any acute pathology. Admission white count 10916 for which he was given empiric Zosyn 1.Syncope -monitor on telemetry... -check carotid ultrasounds bilaterally and 2D echo -EEG to rule out seizure disorder -cardiac consult if above all negative 2. LY -volume repletion overnight -follow renals/divalents -avoid nephrotoxins -if no response to volume. .. Consider renal consult today 2. Essential hypertension -appears well controlled. 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 Diabetes type 2 -acceptable control on current therapies -lispro correctional scale -adjust as indicated 5. Paroxysmal atrial fibrillation -examined in sinus rhythm -continue outpatient therapies including amiodarone -continue Eliquis Full code Eliquis Require at least 2 midnights going forward to workup syncope with specialty consultation. This can not be achieved a lesser acute setting Quality Stroke Does the patient have a stroke diagnosis?: No VTE Prior VTE?: No VTE Risk Level:: Medical - moderate - high VTE Device Contraindication: Treatment Not Indicated VTE Drug Contraindication: N/A - Med Ordered
--- NOTE | 2025-08-25 19:59 | PC.NURSE ---
Pt a&ox4, no signs of distress. Pt denies pain at this time Pt requested and HOB lowered Plan of care ongoing.
[2025-08-25 21:22] LABS: Glucose, Whole Blood 135 mg/dL (60-115)
[2025-08-26] VITALS (10 sets, daily range): BP systolic 87–147; BP diastolic 52–68; PULSE 53–65; RESP 16–18; TEMP 36.1–37.5; O2SAT 93–98
--- NOTE | 2025-08-26 | EEG_ITS ---
History: H/O Pleural effusion, CVA, TEA, HTN, Depression, Visual hallucination, TN, CAD, History of cardioversion, Diabetes, benign prostatic hyperplasia, Shock liver, VERONICA (nonalcoholic steatohepatitis), History of alcohol abuse, A-fib, Mass brain, Sarcoidosis, GERD, Hyperlipidemia, Type 2 diabetes, CHF - pt admitted for frequent falls, tremors, and issues with balance CT of brain 08/21 showed stable right prepontine extra-axial mass measuring approximately 0.9 x 1.8 x 2.0 cm, unchanged and consistent with a known meningioma. There is mild flattening and mass effect upon the right mid lauryn without underlying edema, a stable finding. No new mass effect or edema. Medication: Acetaminophen, Albuterol Sulfate, Amiodarone, Apixaban, Atorvastatin Calcium, Bupropion HCl, Calcium Carbonate, Dextrose, Famotidine, Furosemide, Gabapentin, Insulin Human, Lispro, Loratadine, Magnesium Hydroxide, Melatonin, Omeprazole, Ondansetron, Sodium Chloride, Tamsulosin HCl, Venlafaxine, Vitamin D Technical Description Photic Stimulation: Completed Hyperventilation: Omitted Behavioral State: Pleasant and cooperative State of Consciousness: awake with periods of sleep Skull Defect: no Sedation: no Handedness: Right Duration: 31 mins 05 secs Fusion Operator Comments: No clear tremor was noted during this study Last Meal: 08/27/25 7 am Time / date of last symptom: 08/25/25 Description: This is a 16 channel EEG with an EKG lead. Patient is reported awake with periods of sleep. Background EEG rhythm during wakefulness is low amplitude fast with intermittent drowsiness and light sleep. No sharp wave spikes or paroxysmal tendencies noted. No asymmetry is noted. Cardiac lead did not reveal any significant abnormality. Photic stimulation did not produce any significant driving. Hyperventilation was not performed. Impression: No significant abnormality noted on this EEG. [facility]
[2025-08-26] MEDS: Lactated Ringers 1,000 ML 80 ML IVCONT (06:50)
[2025-08-26 07:12] LABS: Hematocrit 35.1 % (42.0-52.0); Hemoglobin 11.6 g/dl (14.0-18.0); Imm Gran Abs Auto 0.08 X10*3/uL (0.00-0.03); Imm Gran Pct Auto 0.5 % (0.0-0.4); Lymphocytes Absolute Auto 0.7 X10*3/uL (1.2-4.9); MANUAL DIFF FLAG SCAN; Mean Corpuscular HGB Conc 33.0 g/dl (31.0-36.0); Mean Corpuscular Hemoglobin 27.6 pg (27.0-33.0); Mean Corpuscular Volume 83.6 fL (80.0-98.0); NRBC Abs Auto 0.000 X10*3/uL (0.0-0.012); NRBC Pct Auto 0.0 /100WBC (0.0-0.2); Platelet Count 205 X10*3/uL (160-400); Red Blood Count 4.20 X10*6/uL (4.60-5.80); SCAN SMEAR FLAG 1; White Blood Count 15.6 X10*3/uL (4.8-10.8)
--- NOTE | 2025-08-26 07:32 | HO.PM.IMPN ---
Subjective Subjective Date of Service: 08/26/25 Interval History: Patient's son at the bedside-giving most of the history Patient has known meningioma-significant Patient got a CT heads PTOT ID consulted for unexplainable leukocytosis Neuro consulted for meningioma Initiate vanc and Zosyn for possible leukocytosis of unclear etiology, we will discontinue went sepsis ruled out ID consulted for better understanding as thus far extensive sepsis workup unremarkable Ortho consulted for ankle fracture-conservative management Orthostatics q.4 Continue to monitor on telemetry Review of Systems Review of Systems: Yes all other systems are reviewed and are negative Physical Exam Exam: Exam: Appearing in no acute distress lung sounds are clear to auscultation heart regular rate rhythm, clear S1, S2 positive bowel sounds, abdomen is soft, nontender neuro patient is alert x3, no focal deficits Left ankle in a brace Vital Signs: Vital Signs: Last Vital Signs Temp 99.5 F 08/26/25 04:00 Pulse 65 08/26/25 04:00 Resp 16 08/26/25 04:00 BP 138/67 08/26/25 04:00 Pulse Ox 95 08/26/25 04:00 O2 Del Method Room Air 08/26/25 04:00 BMI result Body Mass Index 25.2 Objective Data Active Medications Acetaminophen (Acetaminophen 325 Mg Tablet) 650 mg PO Q6H PRN PRN Reason: Pain, Mild 1-3,fever,headache Calcium Carbonate (Calcium Carbonate 750 Mg Tab.Chew) 750 mg PO Q4H PRN PRN Reason: Heartburn Dextrose (Dextrose 50 % 25 Gm/50 Ml Syringe) 25 gm IVPUSH Q15M PRN; Protocol PRN Reason: per Hypoglycemia Standing Ord. Glucose (Glucose Gel 15 Gm Gel..Gram.) 15 gm PO Q15M PRN; Protocol PRN Reason: per Hypoglycemia Standing Ord. Lactated Ringer's (Lr) 1,000 mls @ 80 mls/hr IVCONT .[id number] [facility] Last Admin: 08/26/25 06:50 Dose: 80 mls/hr Documented By: MERISSA Insulin Human Lispro (Insulin Lispro 100 Unit/Ml 3 Ml Vial) 0 unit SUBCUT QIDACHS [facility]; Protocol Magnesium Hydroxide (Milk Of Magnesia 30 Ml Oral.Susp) 30 ml PO DAILY PRN PRN Reason: Constipation Melatonin (Melatonin 3 Mg Tablet) 6 mg PO BEDTIME PRN PRN Reason: Insomnia Ondansetron HCl (Ondansetron Hcl 4 Mg/2 Ml Vial) 4 mg IVPUSH Q8H PRN PRN Reason: Nausea and Vomiting Sodium Chloride (0.9 % Sodium Chloride Flush 3 Ml Syringe) 3 ml IVFLUSH QSHIFT [facility] Last Admin: 08/25/25 22:58 Dose: Not Given Documented By: MERISSA Non-Admin Reason: IV Running Labs 08/26/25 05:51 08/26/25 05:51 Labs: Laboratory Results - last 24 hr 08/25/25 08/25/25 08/25/25 11:18 12:15 21:18 MCV 84.3 MCH 27.6 MCHC 32.8 RDW 22.9 H Plt Count 245 MPV 10.9 Immature Gran % (Auto) 0.7 H Neut % (Auto) 83.2 H Lymph % (Auto) 4.9 L [place] % (Auto) 10.5 Eos % (Auto) 0.3 Baso % (Auto) 0.4 Lymph # (Auto) 1.0 L [place] # (Auto) 2.2 H Eos # (Auto) 0.1 Baso # (Auto) 0.1 Abs Immat Gran (auto) 0.15 H Absolute Neuts (auto) 17.4 H Absolute Nucleated RBC 0.000 Nucleated RBC % (auto) 0.0 Smear Tech's Comments VERIFIED Anion Gap 14 Estim Creat Clear Calc 22.2 Estimated GFR 19 POC Glucose 135 H Random Glucose 154 H Lactic Acid 1.9 1.7 Calcium 10.2 Magnesium 2.2 Total Bilirubin 1.2 H Direct Bilirubin 0.6 H AST 29 ALT 21 Alkaline Phosphatase 47 Total Creatine Kinase 36 L Troponin I High Sens 10.9 D C-Reactive Protein 9.76 H Total Protein 6.6 Albumin 4.1 Lipase 46 Procalcitonin 0.26 Urine Color Yellow Urine Appearance Clear Urine pH 5.5 Ur Specific [place] 1.020 Urine Protein Negative Urine Glucose (UA) >=1000 H Urine Ketones Negative Urine Blood Negative Urine Nitrite Negative Ur Leukocyte Esterase Negative Urine RBC 0-2 Urine WBC 0-5 Ur Squamous Epith Cells 0-2 Other Crystals Present Urine Bacteria None Seen Hyaline Casts 0-2 Influenza Type A (PCR) NEGATIVE Influenza Type B (PCR) NEGATIVE RSV RNA Qual (PCR) NEGATIVE SARS-CoV-2 RNA (RT-PCR) NEGATIVE Blood Type A Positive Antibody Screen NEGATIVE 08/26/25 05:51 MCV MCH MCHC RDW Plt Count MPV Not Reportable Immature Gran % (Auto) Neut % (Auto) Lymph % (Auto) [place] % (Auto) Eos % (Auto) Baso % (Auto) Lymph # (Auto) [place] # (Auto) Eos # (Auto) Baso # (Auto) Abs Immat Gran (auto) Absolute Neuts (auto) Absolute Nucleated RBC Nucleated RBC % (auto) Smear Tech's Comments Anion Gap Estim Creat Clear Calc Estimated GFR POC Glucose Random Glucose Lactic Acid Calcium Magnesium Total Bilirubin Direct Bilirubin AST ALT Alkaline Phosphatase Total Creatine Kinase Troponin I High Sens C-Reactive Protein Total Protein Albumin Lipase Procalcitonin Urine Color Urine Appearance Urine pH Ur Specific [place] Urine Protein Urine Glucose (UA) Urine Ketones Urine Blood Urine Nitrite Ur Leukocyte Esterase Urine RBC Urine WBC Ur Squamous Epith Cells Other Crystals Urine Bacteria Hyaline Casts Influenza Type A (PCR) Influenza Type B (PCR) RSV RNA Qual (PCR) SARS-CoV-2 RNA (RT-PCR) Blood Type Antibody Screen Assessment and Plan (1) Syncope: Status: Acute Plan 75-year-old male with a past medical history significant for CKD 3A, AFib on Eliquis, hypertension, CHF, [place], history MD, sarcoidosis and TEA on CPAP, recent history of left ankle fracture who presented to the ED with an acute fall with unknown downtime-patient has been falling significantly per son Patient's son at the bedside-giving most of the history Acute on chronic falls -Multifactorial including vasovagal, hypovolemic, orthostatic given patient's history as he was told that he does need to follow orthostatic hypotension precautions however the patient lives alone and is not mindful of the same -PTOT - EEG. -Orthostats Q4H - Tele History of brainstem area meningioma slightly flattening pontine area -Neurology consulted -significant ischemic vascular disease of brain. He also has moderate-size lesion probably a meningioma close to lauryn slightly flattening the brainstem. He was also at risk for seizure disorder and according to initial report he might have passed out. -walker - EEG. Leukocytosis, sepsis workup nonfocal ID consulted Empirically started him on vanc and Zosyn, can deescalate as appropriate Left ankle fracture Ortho consulted outpatient management Conservative management rest elevation and Chronic conditions -continue home meds CKD 3 Continue to hold nephrotoxic agents Fluids AFib on Eliquis Continue as head CT ruled out intracranial bleed Hypotension Continue home meds Sprague Outpatient management History of MD Monitor on telemetry Sarcoidosis TEA on CPAP Continue CPAP settings per home Goal O2 88-92 . Full code PTOT In my clinical judgment, the patient needs ongoing workup for acute on chronic falls and rule out etiology for unexplained leukocytosis in a patient with frail multiple comorbidities This note is constructed using voice recognition software. While every effort has been made to ensure accuracy, laborer concrete plant errors may have been included. Quality Stroke Does the patient have a stroke diagnosis?: No VTE Prior VTE?: No VTE Risk Level:: Medical - moderate - high VTE Device Contraindication: Treatment Not Indicated VTE Drug Contraindication: N/A - Med Ordered
[2025-08-26 07:36] LABS: Alanine Aminotransferase 18 U/L (0-40); Albumin Level 3.5 g/dL (3.5-5.0); Alkaline Phosphatase 46 U/L (39-117); Anion Gap 12 (12-20); Aspartate Amino Transferase 27 U/L (5-37); Blood Urea Nitrogen 48 mg/dL (9-16); Calcium 9.8 mg/dL (8.4-10.2); Carbon Dioxide 23 mmol/L (22-29); Chloride 105 mmol/L (96-108); Creatinine Clr Calc Pharmacy 28.7; Estimated Glomerular Filt Rate 26; Potassium 4.6 mmol/L (3.3-5.1); Sodium 135 mmol/L (135-145); Total Protein 5.8 g/dL (6.5-8.0)
[2025-08-26 08:42] LABS: Glucose, Whole Blood 156 mg/dL (60-115)
[2025-08-26 11:26] LABS: Glucose, Whole Blood 113 mg/dL (60-115)
--- NOTE | 2025-08-26 11:47 | MHC.CM.PN ---
IMM was addressed with Patient. Patient lives alone in an apartment and he just recently started to use a walker. Patient is active with [facility] and home/resume said services is his goal. CM has initiated and will follow for dc planning. PCP is DR.Alayli Ramirez and Son/HCP/Travis or [id number] will transport at dc.
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
[2025-08-26 15:47] LABS: Glucose, Whole Blood 148 mg/dL (60-115)
[2025-08-26] MEDS: Venlafaxine HCl ER 75 MG CAP.ER.24H 225 MG PO (16:27)
--- NOTE | 2025-08-26 16:46 | PM.EVENT ---
Event Note Date of Service: 08/26/25 Event Note: X-rays of the left ankle reviewed: Lateral malleolar avulsion fracture Possible medial malleolar avulsion of indeterminate age Conservative treatment recommended -Tall walking boot -WBAT with walker or crutches F/U with orthopedics outpatient for continued treatment Time Spent With Patient Time: Total time managing care of this patient today ____ minutes.
--- NOTE | 2025-08-26 16:48 | PHA.PROG ---
Admission Date/Time: August 25, 2025 13:51 Indication: empiric therapy Weight in k.8 kg Adjusted body weight in Kg: [place] body weight in Kg: Obesity Dosing Indication % IBW: BMI 25.2 Serum Creatinine - Last 168 Hours 08/25/25 08/26/25 11:18 05:51 Creatinine 3.19 H 2.47 H Estimated CrCl and GFR - Last 168 Hours 08/25/25 08/26/25 11:18 05:51 Estim Creat Clear Calc 22.2 28.7 Estimated GFR 19 26 Vancomycin Loading Dose:2000 mg X1 Current Vancomycin Dosing Regimen: 750mg Q24H Vancomycin Monitoring using AUC goal of 400 - 600 range with trough as surrogate marker: 490 Date and Time for next Vancomycin Level to be drawn: 08/27 @1500 Pharmacist Comments on Vancomycin Plan: Pt's renal function very poor and BMI normal. Starting patient off with 750mg Q24H with predicted trough of 16.9 but getting trough after load as renal is poor and want to get a level before dosing again. Vancomycin dosing will take advantage of [employer] as a clinical decision support tool that uses Bayesian modeling to calculate individual patient's pharmacokinetic parameters and forecast the patient's drug concentration time course with the target goal AUC 24 range of 400 - 600 mg/L/hr.
[2025-08-26 20:43] LABS: Glucose, Whole Blood 153 mg/dL (60-115)
[2025-08-26] MEDS: buPROPion HCl XL 150 MG TAB.ER.24H PO (20:57)
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
[2025-08-27] VITALS (8 sets, daily range): BP systolic 85–158; BP diastolic 52–70; PULSE 51–67; RESP 16–18; TEMP 36.1–36.7; O2SAT 94–97
[2025-08-27] MEDS: Lactated Ringers 1,000 ML 80 ML IVCONT (01:17)
[2025-08-27 07:05] LABS: Glucose, Whole Blood 105 mg/dL (60-115)
[2025-08-27 07:24] LABS: Hematocrit 34.1 % (42.0-52.0); Hemoglobin 11.2 g/dl (14.0-18.0); Imm Gran Abs Auto 0.10 X10*3/uL (0.00-0.03); Imm Gran Pct Auto 1.0 % (0.0-0.4); Lymphocytes Absolute Auto 1.2 X10*3/uL (1.2-4.9); MANUAL DIFF FLAG SCAN; Mean Corpuscular HGB Conc 32.8 g/dl (31.0-36.0); Mean Corpuscular Hemoglobin 27.5 pg (27.0-33.0); Mean Corpuscular Volume 83.8 fL (80.0-98.0); NRBC Abs Auto 0.000 X10*3/uL (0.0-0.012); NRBC Pct Auto 0.0 /100WBC (0.0-0.2); PLT CLUMP 1; Red Blood Count 4.07 X10*6/uL (4.60-5.80); SCAN SMEAR FLAG 1
--- NOTE | 2025-08-27 07:32 | HO.PM.IMPN ---
Subjective Subjective Date of Service: 08/27/25 Interval History: pt is orthostatic ID believes his leukocytosis is a leukemoid reaction hence discontinued all antibiotics and he is hemodynamically stable Conservative management outpatient settings for left ankle fracture PTOT recommended home with services EEG no acute pathology noted Physical Exam Vital Signs: Vital Signs: Last Vital Signs Temp 98.0 F 08/27/25 03:06 Pulse 57 08/27/25 03:37 Resp 18 08/27/25 03:06 BP 100/56 L 08/27/25 03:37 Pulse Ox 96 08/27/25 03:06 O2 Del Method CPAP 08/27/25 03:06 BMI result Body Mass Index 25.2 Objective Data Active Medications Acetaminophen (Acetaminophen 325 Mg Tablet) 650 mg PO Q6H PRN PRN Reason: Pain, Mild 1-3,fever,headache Albuterol Sulfate (Albuterol Sulfate 90 Mcg 8 Gm Inhaler) 2 puff INHALE Q4H PRN PRN Reason: Shortness Of Breath Or Wheezing Amiodarone HCl (Amiodarone Hcl 200 Mg Tablet) 200 mg PO BID [facility] Last Admin: 08/26/25 20:57 Dose: Not Given Documented By: INDU Non-Admin Reason: Physician Held Med Apixaban (Apixaban 5 Mg Tablet) 5 mg PO BID [facility] Last Admin: 08/26/25 20:57 Dose: 5 mg Documented By: INDU Atorvastatin Calcium (Atorvastatin Calcium 40 Mg Tablet) 40 mg PO DAILY [facility] Last Admin: 08/26/25 16:28 Dose: 40 mg Documented By: CAROL Bupropion HCl (Bupropion Hcl Xl 150 Mg Tab.Er.24h) 150 mg PO BEDTIME [facility] Last Admin: 08/26/25 20:57 Dose: 150 mg Documented By: INDU Calcium Carbonate (Calcium Carbonate 750 Mg Tab.Chew) 750 mg PO Q4H PRN PRN Reason: Heartburn Dextrose (Dextrose 50 % 25 Gm/50 Ml Syringe) 25 gm IVPUSH Q15M PRN; Protocol PRN Reason: per Hypoglycemia Standing Ord. Famotidine (Famotidine 20 Mg Tablet) 20 mg PO DAILY [facility] Last Admin: 08/26/25 16:27 Dose: 20 mg Documented By: CAROL Furosemide (Furosemide 20 Mg Tablet) 20 mg PO DAILY [facility]; Protocol Last Admin: 08/26/25 16:27 Dose: 20 mg Documented By: CAROL Gabapentin (Gabapentin 400 Mg Capsule) 400 mg PO BID [facility] Last Admin: 08/26/25 20:57 Dose: 400 mg Documented By: INDU Glucose (Glucose Gel 15 Gm Gel..Gram.) 15 gm PO Q15M PRN; Protocol PRN Reason: per Hypoglycemia Standing Ord. Lactated Ringer's (Lr) 1,000 mls @ 80 mls/hr IVCONT .[id number] [facility] Last Admin: 08/27/25 01:17 Dose: 80 mls/hr Documented By: INDU Insulin Human Lispro (Insulin Lispro 100 Unit/Ml 3 Ml Vial) 0 unit SUBCUT QIDACHS [facility]; Protocol Last Admin: 08/26/25 20:57 Dose: 2 unit Documented By: INDU Loratadine (Loratadine 10 Mg Tablet) 10 mg PO DAILY [facility] Last Admin: 08/26/25 16:27 Dose: 10 mg Documented By: CAROL Magnesium Hydroxide (Milk Of Magnesia 30 Ml Oral.Susp) 30 ml PO DAILY PRN PRN Reason: Constipation Melatonin (Melatonin 3 Mg Tablet) 6 mg PO BEDTIME PRN PRN Reason: Insomnia Omeprazole (Omeprazole 20 Mg Capsule.Dr) 20 mg PO DAILY@0630 [facility] Last Admin: 08/27/25 05:10 Dose: 20 mg Documented By: INDU Ondansetron HCl (Ondansetron Hcl 4 Mg/2 Ml Vial) 4 mg IVPUSH Q8H PRN PRN Reason: Nausea and Vomiting Sodium Chloride (0.9 % Sodium Chloride Flush 3 Ml Syringe) 3 ml IVFLUSH QSHIFT [facility] Last Admin: 08/27/25 02:52 Dose: Not Given Documented By: INDU Non-Admin Reason: IV Running Tamsulosin HCl (Tamsulosin Hcl 0.4 Mg Capsule) 0.4 mg PO DAILY [facility] Last Admin: 08/26/25 16:28 Dose: 0.4 mg Documented By: CAROL Venlafaxine HCl (Venlafaxine Hcl Er 75 Mg Cap.Er.24h) 225 mg PO DAILY [facility] Last Admin: 08/26/25 16:27 Dose: 225 mg Documented By: CAROL Vitamin D (Cholecalciferol (Vitamin D3) 25 Mcg Tablet) 50 mcg PO DAILY [facility] Last Admin: 08/26/25 16:28 Dose: 50 mcg Documented By: CAROL Labs 08/27/25 06:43 08/27/25 06:43 Labs: Laboratory Results - last 24 hr 08/26/25 08/26/25 08/26/25 05:51 07:39 11:23 MCV 83.6 MCH 27.6 MCHC 33.0 RDW 22.7 H Plt Count 205 Immature Gran % (Auto) 0.5 H Neut % (Auto) 83.4 H Lymph % (Auto) 4.6 L [place] % (Auto) 10.0 Eos % (Auto) 1.2 Baso % (Auto) 0.3 Lymph # (Auto) 0.7 L [place] # (Auto) 1.6 H Eos # (Auto) 0.2 Baso # (Auto) 0.1 Abs Immat Gran (auto) 0.08 H Absolute Neuts (auto) 13.0 H Absolute Nucleated RBC 0.000 Nucleated RBC % (auto) 0.0 Smear Tech's Comments VERIFIED Anion Gap 12 Estim Creat Clear Calc 28.7 Estimated GFR 26 POC Glucose 156 H 113 Random Glucose 145 H Calcium 9.8 Total Bilirubin 0.8 AST 27 ALT 18 Alkaline Phosphatase 46 Total Protein 5.8 L Albumin 3.5 08/26/25 08/26/25 08/27/25 15:33 20:31 06:55 MCV MCH MCHC RDW Plt Count Immature Gran % (Auto) Neut % (Auto) Lymph % (Auto) [place] % (Auto) Eos % (Auto) Baso % (Auto) Lymph # (Auto) [place] # (Auto) Eos # (Auto) Baso # (Auto) Abs Immat Gran (auto) Absolute Neuts (auto) Absolute Nucleated RBC Nucleated RBC % (auto) Smear Tech's Comments Anion Gap Estim Creat Clear Calc Estimated GFR POC Glucose 148 H 153 H 105 Random Glucose Calcium Total Bilirubin AST ALT Alkaline Phosphatase Total Protein Albumin Microbiology Microbiology Results: Microbiology 08/25/25 12:15 Blood Culture - Preliminary Blood - Venous No growth after 24 hours. 08/25/25 12:15 Blood Culture - Preliminary Blood - Venous No growth after 24 hours. Quality Stroke Does the patient have a stroke diagnosis?: No VTE Prior VTE?: No VTE Risk Level:: Medical - moderate - high VTE Device Contraindication: Treatment Not Indicated VTE Drug Contraindication: N/A - Med Ordered
[2025-08-27 07:39] LABS: Alanine Aminotransferase 22 U/L (0-40); Albumin Level 3.5 g/dL (3.5-5.0); Alkaline Phosphatase 44 U/L (39-117); Anion Gap 11 (12-20); Aspartate Amino Transferase 32 U/L (5-37); Blood Urea Nitrogen 40 mg/dL (9-16); Calcium 10.3 mg/dL (8.4-10.2); Carbon Dioxide 25 mmol/L (22-29); Chloride 108 mmol/L (96-108); Creatinine Clr Calc Pharmacy 34.3; Estimated Glomerular Filt Rate 31; Magnesium 2.1 mg/dL (1.6-2.6); Potassium 4.7 mmol/L (3.3-5.1); Sodium 139 mmol/L (135-145); Total Protein 5.8 g/dL (6.5-8.0)
[2025-08-27 08:26] LABS: Platelet Count 214 X10*3/uL (160-400); White Blood Count 10.0 X10*3/uL (4.8-10.8)
[2025-08-27] MEDS: Venlafaxine HCl ER 75 MG CAP.ER.24H 150 MG PO (10:48)
[2025-08-27 11:07] LABS: Glucose, Whole Blood 133 mg/dL (60-115)
--- NOTE | 2025-08-27 14:50 | PM.DS ---
DS: Providers Provider Date of admission: 08/25/25 13:51 Date of discharge: 08/27/25 Primary care physician: Maria T Ramirez MD Consults: 08/26/25 09:15 Consult to Neurology Routine Consulting Provider: [facility] Reason for consultation: prior h/o pontine mass,AMS? imaging req 08/26/25 09:16 Consult to Infectious Diseases Routine Consulting Provider: [facility] Reason for consultation: unclear leukocytosis ?leukoid reaction 08/26/25 13:57 Consult to Orthopedics Routine Consulting Provider: [facility] Reason for consultation: R ankle fracture , s/p multiple falls DS: Diagnosis Discharge Diagnosis (1) Leukocytosis: Status: Acute DS: Summary Hospital Course Hospital Course: Chief Complaint: Dizziness 75-year-old male with past medical history of CKD, pleural effusion, CHF with EF 40-45% last checked in May of 2025, anemia, right ventricular heart failure, cirrhosis, hepatorenal syndrome, anemia, diabetes 1.5,BPH, cardiorenal syndrome, hypertension, hyperlipidemia, AFib on Eliquis, CAD he is status post ablation at [facility] with a discharge on 07/30 he was continues on amiodarone the son states no other medications or change. They did recently travel for the holidays to [place] he has been taking all of his medications as prescribed. They note they return he started to feel sick they think he was exposed to someone there. He states overall he just feels weak and dizzy every time he stands on Monday he got up and tried to get ice out of the refrigerator he woke up on the ground he is not sure how much time he was on the ground for. Patient has had multiple admissions since May with to others for dizziness. At this point in time he is hemodynamically stable. He was scanned in the ER chest abdomen head and neck all negative Discharge summary: 75-year-old male with a past medical history significant for CKD 3A, AFib on Eliquis, hypertension, CHF, [place], history ID, sarcoidosis and TEA on CPAP, recent history of left ankle fracture who presented to the ED with an acute fall with unknown downtime-patient has been falling significantly per son Acute on chronic falls -likely orthostatic -Multifactorial including vasovagal, hypovolemic, orthostatic given patient's history as he was told that he does need to follow orthostatic hypotension precautions however the patient lives alone and is not mindful of the same - hence fall risk remains high and advised the patient is being sent home with VNA -PTOT -recommended home with VNA services which he has already active with VNA -Orthostats positive - Tele unremarkable during this hospitalization 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 He also has moderate-size lesion probably a meningioma close to lauryn slightly flattening the brainstem. He was also at risk for seizure disorder and according to initial report he might have passed out. -patient advised to follow orthostatic hypotension - EEG was negative hence we did not initiate any new medications Leukocytosis, sepsis workup nonfocal ID consulted deemed leukemoid reaction in the setting of pain and ankle fracture Discontinued all antibiotics Left ankle fracture Ortho consulted outpatient management , pain control Conservative management rest elevation and boot Chronic conditions -continue home meds CKD 3 Continue to hold nephrotoxic agents Fluids AFib on Eliquis Continue as head CT ruled out intracranial bleed Hypotension Continued home meds [place] Outpatient management History of ID Monitored on telemetry Sarcoidosis TEA on CPAP Continue CPAP settings per home Goal O2 88-92 Patient was deemed hemodynamically stable for discharge and being discharged with orthostatic instructions-patient to use Sathya stockings abdominal binder and midodrine p.r.n. if needed This note is constructed using voice recognition software. While every effort has been made to ensure accuracy, occupational nurse errors may have been included. Time spent discussing smoking cessation with patient: more than 10 minutes Status at Discharge Functional status at discharge: uses cane/walker Overall status at discharge: patient is progressing back to baseline Time Attestation Discharge Coordination Time (in mins): 75 Quality: Safe Use of Opioids Does Pt have an Active Cancer Diagnosis on the Problem List?: No Quality: Stroke Does the patient have a stroke diagnosis?: No Physical Exam Vital Signs: Vital Signs: Last Vital Signs Temp 97.7 F 08/27/25 11:26 Pulse 51 08/27/25 11:26 Resp 16 08/27/25 11:26 BP 158/70 H 08/27/25 11:26 Pulse Ox 94 08/27/25 11:26 O2 Del Method Room Air 08/27/25 11:26 BMI result Body Mass Index 25.2 DS: Data Data Completed and Pending Completed studies during hospitalization [Text1]: Procedures Assistance with Respiratory Ventilation, Less than 24 Consecutive Hours, Continuous Positive Airway Pressure (05/14/25) Drainage of Peritoneal Cavity, Percutaneous Approach (05/14/25) Drainage of Right Pleural Cavity, Percutaneous Approach (06/20/25) [facility] of Cardiac Rhythm, Single (03/08/25) Ultrasonography of Heart with Aorta, Transesophageal (03/08/25) Labs on day of discharge: Laboratory Results - last 24 hr 08/26/25 08/26/25 08/27/25 15:33 20:31 06:43 WBC 10.0 RBC 4.07 L Hgb 11.2 L Hct 34.1 L MCV 83.8 MCH 27.5 MCHC 32.8 RDW 22.5 H Plt Count 214 MPV 11.5 Immature Gran % (Auto) 1.0 H Neut % (Auto) 71.3 Lymph % (Auto) 11.7 L Dukes % (Auto) 13.4 H Eos % (Auto) 2.2 Baso % (Auto) 0.4 Lymph # (Auto) 1.2 Dukes # (Auto) 1.3 H Eos # (Auto) 0.2 Baso # (Auto) 0.0 Abs Immat Gran (auto) 0.10 H Absolute Neuts (auto) 7.1 Absolute Nucleated RBC 0.000 Nucleated RBC % (auto) 0.0 Smear Tech's Comments VERIFIED Sodium 139 Potassium 4.7 Chloride 108 Carbon Dioxide 25 Anion Gap 11 L BUN 40 H Creatinine 2.07 H Estim Creat Clear Calc 34.3 Estimated GFR 31 POC Glucose 148 H 153 H Random Glucose 110 Calcium 10.3 H Magnesium 2.1 Total Bilirubin 0.5 AST 32 ALT 22 Alkaline Phosphatase 44 Total Protein 5.8 L Albumin 3.5 08/27/25 08/27/25 06:55 11:04 WBC RBC Hgb Hct MCV MCH MCHC RDW Plt Count MPV Immature Gran % (Auto) Neut % (Auto) Lymph % (Auto) Dukes % (Auto) Eos % (Auto) Baso % (Auto) Lymph # (Auto) Dukes # (Auto) Eos # (Auto) Baso # (Auto) Abs Immat Gran (auto) Absolute Neuts (auto) Absolute Nucleated RBC Nucleated RBC % (auto) Smear Tech's Comments Sodium Potassium Chloride Carbon Dioxide Anion Gap BUN Creatinine Estim Creat Clear Calc Estimated GFR POC Glucose 105 133 H Random Glucose Calcium Magnesium Total Bilirubin AST ALT Alkaline Phosphatase Total Protein Albumin Preliminary micro results at discharge 08/25/25 12:15 Blood Culture - Preliminary Blood - Venous No growth after 48 hours. 08/25/25 12:15 Blood Culture - Preliminary Blood - Venous No growth after 48 hours. Discharge Plan Discharge Anticipated Discharge Date/Time: 08/27/25 15:00 Patient Disposition: Home Health Service Discharge Diagnosis: Recurrent falls due to orthostatic hypotension [facility] [Outside] - 1 Week Maria T Ramirez MD [Primary Care Provider, Family Practice] - 1 Week Gale Crespo MD [Physician, Physiatry] - 1 Week Liz Chand MD [Physician, Infectious Disease] - 1 Week Karen Ryan MD [Physician, Neurology] - 1 Week Anthony Moya MD [Physician, Orthopedics] - 1 Week Discharge Medications: New midodrine 5 mg Tablet 5 mg PO TID@0900,1300,1700 10 Days Qty: 30 0RF (DME) clint.stocking,knee,reg,smal [T.E.D. Knee [id number]] Misc See Rx Instructions .Route Qty: 12 0RF Rx Instructions: As directed Continued bupropion HCl [Wellbutrin SR] 150 mg tablet sustained-release 12 hr 150 mg PO BEDTIME Qty: 60 3RF venlafaxine 75 mg capsule,extended release 24hr 225 mg PO DAILY Qty: 90 3RF cetirizine 10 mg tablet 10 mg PO DAILY Qty: 30 3RF albuterol sulfate 90 mcg/actuation HFA aerosol inhaler 2 puff inhalation Q4H PRN (Reason: Shortness Of Breath Or Wheezing) Qty: 8.5 3RF Eliquis 5 mg tablet 5 mg PO BID Qty: 180 3RF atorvastatin 40 mg tablet 40 mg PO DAILY Qty: 90 3RF Jardiance 25 mg tablet 25 mg PO DAILY Qty: 90 3RF famotidine 20 mg tablet 20 mg PO DAILY Qty: 60 3RF fenofibrate micronized 130 mg capsule 130 mg PO DAILY Qty: 60 3RF furosemide [Lasix] 20 mg tablet 20 mg PO DAILY Qty: 30 3RF omeprazole 20 mg tablet,delayed release (DR/EC) 20 mg PO DAILY@0630 Qty: 60 3RF tamsulosin 0.4 mg capsule 0.4 mg PO DAILY Qty: 90 3RF spironolactone 25 mg tablet 25 mg PO BID Qty: 60 3RF cholecalciferol (vitamin D3) [Vitamin D3] 50 mcg (2,000 unit) Tablet 50 mcg PO DAILY metformin 500 mg tablet extended release 24 hr 1,000 mg PO BEDTIME losartan 50 mg tablet 50 mg PO BID amiodarone [Pacerone] 200 mg tablet 200 mg PO BID Antacid Ext Str (calcium carb) 300 mg (750 mg) tablet,chewable 1 tab PO Q4H PRN (Reason: Heartburn) gabapentin 400 mg capsule 400 mg PO BID Qty: 180 3RF Discharge Orders: Discharge Order (Routine); Ordered 08/27/25 Ordered By: Georgiana Bhat Diet: Low salt diet Activity on Discharge: Use cane or walker Stand Alone Forms: Patient Portal Discharge page Print Language: Trinidadian Care Plan Goals: Discharge Instructions ? Orthostatic Hypotension Condition: You have low blood pressure when changing positions (for example, lying down to sitting or standing), which increases your risk of dizziness, lightheadedness, and falls. Activity and Position Changes: - Change positions slowly. - When getting out of bed: lie ? sit for 2?3 minutes ? stand. - Sit at the edge of the bed before standing. - If you feel dizzy, sit or lie down immediately. - Use your walker at all times when walking. - Do not walk alone until cleared by Physical Therapy. Fall Prevention: - Keep frequently used items within reach. - Avoid rushing to the bathroom; use assistance as needed. - Ensure adequate lighting, especially at night. - Wear supportive, non?slip footwear. Hydration and Diet: - Maintain adequate fluid intake unless otherwise instructed. - Avoid skipping meals. - Limit alcohol intake. Medications: - Take medications exactly as prescribed. - Avoid over?the?counter medications that can lower blood pressure unless approved. - Report dizziness after medication doses. When to Seek Medical Attention: - Recurrent or worsening dizziness despite precautions - Fainting or loss of consciousness - New or worsening weakness, confusion, or falls - Chest pain, shortness of breath, or palpitations Follow?Up: - Follow up with Primary Care and Physical Therapy as scheduled. - Continue orthostatic blood pressure monitoring if instructed. Rand Reminder: Orthostatic symptoms significantly increase fall risk. Slow position changes, hydration, and consistent use of your walker are essential for safety. Health Concerns: See above Plan of Treatment: See above Assessment: See above Patient Instructions: POTS (Postural Orthostatic Tachycardia Syndrome) (ED)
== END 2025-08-27 16:30 | disposition home health service (06) | DRG 312 ==
LOC: HO.ED 13:15 → HO.EDOVER 14:10 → HO.IMC 19:31
PROVIDERS: Admitting Provider Hospitalist; Emergency Provider Emergency Medicine; PCP Family Medicine; Visit Provider Student in an Organized Health Care Education/Training Program
DX: I95.1 Orthostatic hypotension (principal); N17.9 Acute kidney failure, unspecified; I25.10 Atherosclerotic heart disease of native coronary artery without angina pectoris; I48.0 Paroxysmal atrial fibrillation; S82.842A Displaced bimalleolar fracture of left lower leg, initial encounter for closed fracture; D32.0 Benign neoplasm of cerebral meninges; W19.XXXA Unspecified fall, initial encounter; R29.6 Repeated falls; I12.9 Hypertensive chronic kidney disease with stage 1 through stage 4 chronic kidney disease, or unspecified chronic kidney disease; N18.30 Chronic kidney disease, stage 3 unspecified; K75.81 Nonalcoholic steatohepatitis (NASH); E11.22 Type 2 diabetes mellitus with diabetic chronic kidney disease; Z91.81 History of falling; Z20.822 Contact with and (suspected) exposure to COVID-19; Z95.5 Presence of coronary angioplasty implant and graft; Z79.01 Long term (current) use of anticoagulants; Z79.84 Long term (current) use of oral hypoglycemic drugs; Z79.899 Other long term (current) drug therapy
CPT/HCPCS: 36415; 70450; 71045; 71250; 72125; 73564; 73610; 74176; 80053; 80076; 81001; 82550; 82947; 83605; 83690; 83735; 84145; 84484; 85025; 86140; 86850; 86900; 86901; 87040; 87637; 93005; 95819; 97162; 97166; 99285; J0696; J1956; J3373; J7120

== ENCOUNTER → 2025-08-25 10:24 | Outpatient (BNV) | payer BC, SELFPAY | PROVIDERS: Admitting Provider Hospitalist; Emergency Provider Emergency Medicine; PCP Family Medicine; Visit Provider Internal Medicine | DX: I45.2 Bifascicular block (principal) | CPT/HCPCS: 93010 ==

== ENCOUNTER → 2025-08-25 10:25 | Outpatient (BNV) | payer BC, SELFPAY | PROVIDERS: Emergency Provider Emergency Medicine; PCP Family Medicine; Visit Provider Radiology Diagnostic Radiology | DX: K80.20 Calculus of gallbladder without cholecystitis without obstruction (principal); K59.00 Constipation, unspecified; I77.810 Thoracic aortic ectasia; R91.1 Solitary pulmonary nodule; M17.12 Unilateral primary osteoarthritis, left knee; I25.84 Coronary atherosclerosis due to calcified coronary lesion; S82.62XA Displaced fracture of lateral malleolus of left fibula, initial encounter for closed fracture; I67.82 Cerebral ischemia; J32.2 Chronic ethmoidal sinusitis; J32.0 Chronic maxillary sinusitis; Z04.3 Encounter for examination and observation following other accident | CPT/HCPCS: 70450; 71045; 71250; 72125; 73564; 73610; 74176 ==

== ENCOUNTER 2025-08-25 13:51 | Outpatient (BNV) | payer BC, SELFPAY | END 2025-08-26 08:00 | PROVIDERS: Admitting Provider Hospitalist; Emergency Provider Emergency Medicine; PCP Family Medicine; Visit Provider Psychiatry & Neurology Neurology | DX: R29.6 Repeated falls (principal) | CPT/HCPCS: 95819 ==

== ENCOUNTER 2025-08-25 13:51 | Outpatient (BNV) | payer BC, SELFPAY | END 2025-08-26 10:33 | PROVIDERS: Admitting Provider Hospitalist; Emergency Provider Emergency Medicine; PCP Family Medicine; Visit Provider Radiology Diagnostic Radiology | DX: R42 Dizziness and giddiness (principal) | CPT/HCPCS: 70450 ==

== ENCOUNTER → 2025-08-25 13:51 | Outpatient (BNV) | payer BC, SELFPAY | PROVIDERS: Admitting Provider Hospitalist; Emergency Provider Emergency Medicine; PCP Family Medicine; Visit Provider Hospitalist | DX: R55 Syncope and collapse (principal) | CPT/HCPCS: 99233 ==

== ENCOUNTER → 2025-08-25 13:51 | Outpatient (BNV) | payer BC, SELFPAY | PROVIDERS: Admitting Provider Hospitalist; Emergency Provider Emergency Medicine; PCP Family Medicine; Visit Provider Psychiatry & Neurology Neurology | DX: D32.9 Benign neoplasm of meninges, unspecified (principal); R26.89 Other abnormalities of gait and mobility; I67.89 Other cerebrovascular disease | CPT/HCPCS: 99253 ==

== ENCOUNTER → 2025-08-25 13:51 | Outpatient (BNV) | payer BC, SELFPAY | PROVIDERS: Admitting Provider Hospitalist; Emergency Provider Emergency Medicine; PCP Family Medicine; Visit Provider Internal Medicine | DX: D72.829 Elevated white blood cell count, unspecified (principal) | CPT/HCPCS: 99253 ==